=== PATIENT | male | born 1945 | race Caucasian/White ===

== ENCOUNTER 2020-10-26 11:13 | Outpatient (REF) | payer MEDICARE, SELFPAY ==
[2020-10-26 12:05] LABS: COVID-19 Test Negative (Negative)
== END 2020-10-26 11:14 | disposition home or self-care (01) ==
LOC: HO.LAB 11:13
PROVIDERS: PCP Family Medicine; Visit Provider Internal Medicine
DX: Z20.822 Contact with and (suspected) exposure to COVID-19 (principal)
CPT/HCPCS: 36415; 87635; C9803

== ENCOUNTER 2022-11-13 14:43 | Outpatient (AMB) | payer MEDICARE, SELFPAY ==
--- NOTE | 2022-11-13 14:55 | MHC.OFFVIS ---
Intake Intake Visit Reasons: Establish care/hx Prostate Cx Intake Note: New Patient is Present for Hx of Prostate Cancer/ Current Medication: Terazosin, solifenacin Antibiotic Allergy: None Blood Thinner: Eliquis Past treatment with Firmagon for Prostate Cancer Allergies bicalutamide Allergy (Mild, Verified 11/13/22 14:58) Unknown Iodinated Contrast Media Allergy (Mild, Verified 11/13/22 14:58) Unknown Medication List - Last Reconciled 11/13/22 by Chidi Murdock MD apixaban (Eliquis) 2.5 mg PO BID degarelix (Firmagon) mg subcut lisinopril mg PO mirabegron ER 25 mg PO DAILY 90 days prednisone mg PO solifenacin mg PO terazosin mg PO HPI HPI Comments History of Present Illness Details Candelario is a very pleasant male. He is a patient of . He is seen for the following urologic conditions - prostate cancer - radiation cystitis - urinary incontinence Multiple issues Discussed use of penile clamp to stop leakage Trial of bladder medication - suggest Myrbetriq given age for bladder urgency Prostate cancer - longstanding Diagnosis approximately 2004 Initial therapy with external beam radiation and radioactive seeds Develops question of metastatic disease Followed at [facility] with 2nd generation antiandrogen therapy Radiation cystitis Slowly developing urgency and frequency No prior therapy Urinary incontinence 2021 underwent prostate procedure Subsequent leakage with urgency [facility] Medical History (Updated 11/13/22 @ 15:24 by Chidi Murdock MD) Metastatic malignant neoplasm to prostate Microscopic hematuria Nocturia Weak urinary stream Review of Systems Const Denies chills and Denies fever(s) Card Reports no additional complaints and Denies syncope Resp Denies cough GI Denies abdominal pain and Denies heartburn Reports as per HPI and Denies change in libido Neuro Denies syncope Psych Denies change in libido Endo Denies change in libido Physical Exam Const General: cooperative, healthy appearing, comfortable and no acute distress Orientation/consciousness: patient oriented x3 HEENT Face and sinus: Yes normal facial exam Mouth: moist mucous membranes Neck Neck: Yes normal visual inspection, Yes full ROM and Yes trachea midline Chest Chest palpation & inspection: normal inspection of the chest Resp Effort & Inspection: normal respiratory effort, able to speak in complete sentences and no respiratory distress GI Inspection: Yes normal to inspection Back/Spine/Pelvis Cervical Spine: normal cervical lordosis Thoracic/Lumbar Spine: thoracic and lumbar spine normal to inspection Skin General skin exam: no rashes or lesions noted Neuro General: patient oriented x3, gait normal, tone normal and moves all extremities Extrem General: Yes normal to inspection and Yes capillary refill normal Assessment & Plan Assessment & Plan (1) Bladder outlet obstruction: Code(s): N32.0 - Bladder-neck obstruction (2) Metastatic malignant neoplasm to prostate: Code(s): C79.82 - Secondary malignant neoplasm of genital organs (3) Radiation cystitis: Code(s): N30.40 - Irradiation cystitis without hematuria Plan Stage prostate cancer with DEXA and bone scan Trial Myrbetriq Orders: Orders XR DEXA axial skeleton 3 Months C79.82 - Secondary malignant neoplasm of genital organs, M85.80 - Other specified disorders of bone density and structure, unspecified site NM bone scan whole body 11/13/22 C61 - Malignant neoplasm of prostate, C79.51 - Secondary malignant neoplasm of bone, C79.82 - Secondary malignant neoplasm of genital organs Medications: New mirabegron ER 25 mg PO DAILY 90 days 90 tabs 0RF N30.40 - Irradiation cystitis without hematuria Patient Instructions: Imaging studies, laboratory and physical exam results were discussed and reviewed in detail. No major barriers to patient understanding were identified. An opportunity to ask questions regarding the treatment plan was provided. All questions were answered. The patient expressed understanding and agreement with the above treatment plan. The patient is aware they should contact our office by phone for worsening of their current condition or the appearance of new urologic symptoms. Compliance is encouraged with any medications and followup testing that is ordered. It is a privilege to participate in the urologic care of your patient. If you have any questions or concerns regarding treatment for the above conditions, or other urologic issues, please do not hesitate to contact me. The office telephone contact is [phone]. This note is constructed using voice recognition software. While every effort has been made to ensure accuracy benefits representative errors may have been included. Yours sincerely, Dr Chidi Murdock MD, [facility] - Urology Providers of Expert, Compassionate Care for the Genitourinary System Coding Level of Care Code New Pt Level 4 (88503) Diagnoses Bladder outlet obstruction N32.0 Metastatic malignant neoplasm to prostate C79.82 Radiation cystitis N30.40
== END 2022-11-13 15:24 | disposition home or self-care (01) ==
PROVIDERS: PCP Family Medicine; Visit Provider Urology
DX: N32.0 Bladder-neck obstruction (principal); C79.82 Secondary malignant neoplasm of genital organs; N30.40 Irradiation cystitis without hematuria
CPT/HCPCS: 99204

== ENCOUNTER → 2022-11-13 14:43 | Outpatient (BNVA) | payer MEDICARE, SELFPAY | PROVIDERS: PCP Family Medicine; Visit Provider Urology ==

== ENCOUNTER 2022-11-19 14:03 | Outpatient (REF) | payer MEDICARE, SELFPAY ==
--- NOTE | ~2022-11-19 | MM_ITS ---
EXAMINATION: BONE DENSITOMETRY CLINICAL INDICATION: Other specified disorders of bone density and structure, unspecified. COMPARISON: This is the patient's baseline examination. TECHNIQUE: Using a [employer] DXA System (software version: 13.1) manufactured by [employer], dual-energy x-ray absorptiometry was performed of the lumbar spine and right hip. The images are of good technical quality. Summary results are attached. FINDINGS: RIGHT FEMUR, NECK: BMD 0.781 g/cm2, Z-score -1.0, T-score -2.2, osteopenia. RIGHT FEMUR, TOTAL: BMD 0.744 g/cm2, Z-score -1.7, T-score -2.5, osteoporosis. AP SPINE L1-L4 (excluding L2): The data of L1-L4 has been changed to exclude the L2 vertebral body, because degenerative sclerosis at this level may cause overestimation of lumbar spine density. BMD 1.373 g/cm2, Z-score 1.6, T-score 1.4, normal. IDENTIFIED RISK FACTORS: Recurrent falls, height loss, history of fracture (adult), glucocorticoids (chronic). HISTORY OF FRACTURE: Femur/hip. MEDICATIONS: Calcium supplements or multivitamin, vitamin D. MM/XR DEXA axial skeleton IMPRESSION: 1. DIAGNOSIS: Severe osteoporosis based on the lowest T-score value of -2.5 in the total femur and history of fracture applying World Health Organization criteria. 2. 10-YEAR FRACTURE RISK PREDICTION, FRAX: According to the guidelines, FRAX calculation should only be performed on patients in the osteopenia bone density category. Therefore, FRAX was not performed on this patient. 3. Treatment Recommendations: NOF guidelines recommend consideration for treatment in postmenopausal women and men age 50 and older presenting with the following: -A hip or vertebral (clinical or morphometric) fracture. -T-score less than or equal to -2.5 at the femoral neck or spine after appropriate evaluation to exclude secondary causes. -Low bone mass at the hip or spine and a 10-year fracture probability by FRAX of greater than or equal to 3% for hip fracture or greater than or equal to 20% for major osteoporotic fracture based on the [place] adapted WHO algorithm. 4. Other Recommendations: All treatment decisions require clinical judgment and consideration of individual patient factors, including patient preferences, comorbidities, previous drug use, risk factors not captured in the FRAX model (e.g. frailty, falls, vitamin D deficiency, increased bone turnover, interval significant decline in bone density) and possible under or overestimation of fracture risk by FRAX. Additional medical evaluation for secondary cause of low bone mineral density may be appropriate. FUTURE SCAN RECOMMENDATION: People with diagnosed cases of osteoporosis or at high risk for fracture should have regular bone mineral density tests. For patients eligible for Medicare, routine testing is allowed once every 2 years. The testing frequency can be increased to one year for patients who have rapidly progressing disease, those who are receiving or discontinuing medical therapy to restore bone mass, or have additional risk factors.
== END 2022-11-19 14:04 | disposition home or self-care (01) ==
LOC: HO.MAMMO 14:03
PROVIDERS: PCP Physician Assistant; Visit Provider Urology
DX: Z13.820 Encounter for screening for osteoporosis (principal); M81.0 Age-related osteoporosis without current pathological fracture; M85.80 Other specified disorders of bone density and structure, unspecified site; C79.82 Secondary malignant neoplasm of genital organs
CPT/HCPCS: 77080

== ENCOUNTER → 2022-11-19 14:30 | Outpatient (BNV) | payer MEDICARE, SELFPAY | PROVIDERS: PCP Physician Assistant; Visit Provider Radiology Diagnostic Radiology | DX: M81.0 Age-related osteoporosis without current pathological fracture (principal) | CPT/HCPCS: 77080 ==

== ENCOUNTER → 2022-11-26 10:40 | Outpatient (REF) | payer MEDICARE, SELFPAY ==
--- NOTE | ~2022-11-26 | NM_ITS ---
EXAMINATION: NM BONE SCAN OF THE WHOLE BODY CLINICAL INFORMATION: Secondary malignant neoplasm of bone. Prostate cancer. COMPARISON: Renal ultrasound done on 04/10/2022. TECHNIQUE: Multiple gamma scintillation camera images of the whole body were performed 2.5 hours following the intravenous administration of 34 mCi Tc-99m MDP. The radiotracer was injected through left hand superficial vein without complications. FINDINGS: In the head, no suspicious focal lesion. In the thoracic cage and upper extremities, mild asymmetric linear increased radiotracer activity involving the lateral end of the right clavicle may represent degenerative changes versus other process. Radiographic correlation is recommended. Mild heterogenicity is noted in the sternum. In the spine, no suspicious focal lesion. Increased radiotracer activities involving the cervical spine likely represent degenerative spondylosis. In the pelvis, asymmetric focal increased radiotracer activity along the posterior superior medial aspect of the left iliac bone is nonspecific. Radiographic correlation is recommended. Alternatively, follow-up PSMA- PET/CT study may also be considered for further clarification. Postsurgical changes of left hip prosthesis with intact hardware. In the lower extremities, mild increased diaphyseal activity involving the left mid femur is likely related to the prosthesis at the left hip. Postsurgical changes of bilateral knee prosthesis is present. No other definite bony abnormalities are noted. The urinary bladder and faint visualization of both kidneys are noted. NM/NM bone scan whole body IMPRESSION: 1. Focal increased asymmetric radiotracer activity along the superior posterior medial aspect of the left iliac bone is nonspecific. Radiographic correlation is recommended. Alternatively, follow-up PSMA PET/CT study may also be considered for further clarification. 2. Asymmetric nonspecific mild linear increased radiotracer activity at the lateral end of the right clavicle. Radiographic correlation and/or follow-up PSMA PET CT study as appropriate may be considered for further clarification. 3. Likely degenerative spondylosis involving the cervical spine and slight heterogeneous radiotracer activity involving the sternum is likely physiologic.
== END ==
LOC: HO.NUCMED 10:40
PROVIDERS: PCP Physician Assistant; Visit Provider Urology
DX: C61 Malignant neoplasm of prostate (principal); C79.51 Secondary malignant neoplasm of bone; C79.82 Secondary malignant neoplasm of genital organs
CPT/HCPCS: 78306; A9503

== ENCOUNTER 2022-12-20 12:34 | Outpatient (AMB) | payer MEDICARE, SELFPAY ==
--- NOTE | 2022-12-20 13:04 | MHC.OFFVIS ---
Intake Intake Visit Reasons: 1M Bone Scan/Prostate Cancer(set) Intake Note: Patient is Present for Follow Up Bone Scan Urology Medication: Vesicare, Myrbetriq Antibiotic Allergies: None Blood Thinners: Eliquis Pharmacy: [facility] Allergies bicalutamide Allergy (Mild, Verified 12/20/22 13:05) Unknown Iodinated Contrast Media Allergy (Mild, Verified 12/20/22 13:05) Unknown Medication List - Last Reconciled 12/20/22 by Chidi Murdock MD apixaban (Eliquis) 2.5 mg PO BID degarelix (Firmagon) mg subcut hydrochlorothiazide 25 mg PO DAILY lisinopril mg PO mirabegron ER 25 mg PO DAILY 90 days prednisone mg PO solifenacin mg PO terazosin mg PO HPI HPI Comments History of Present Illness Details Candelario is a very pleasant male. He is a patient of . He is seen for the following urologic conditions - prostate cancer - radiation cystitis - urinary incontinence Doing much better with Myrbetriq for bladder urgency DEXA scan osteoporotic - informs he broke his hip September 2022 Bone scan no evidence of current active disease Recommend Prolia every 6 months Prostate cancer - longstanding Diagnosis approximately 2004 Initial therapy with external beam radiation and radioactive seeds Develops question of metastatic disease Followed at [facility] with 2nd generation antiandrogen therapy - Fermagon Radiation cystitis Slowly developing urgency and frequency No prior therapy Urinary incontinence 2021 underwent prostate procedure Subsequent leakage with urgency Doing well with Myrbetriq - medications through [facility] Medical History Weak urinary stream Nocturia Metastatic malignant neoplasm to prostate Microscopic hematuria Review of Systems Const Denies chills and Denies fever(s) Card Reports no additional complaints and Denies syncope Resp Denies cough GI Denies abdominal pain and Denies heartburn Reports as per HPI and Denies change in libido Neuro Denies syncope Psych Denies change in libido Endo Denies change in libido Physical Exam Const General: cooperative, healthy appearing, comfortable and no acute distress Orientation/consciousness: patient oriented x3 HEENT Face and sinus: Yes normal facial exam Mouth: moist mucous membranes Neck Neck: Yes normal visual inspection, Yes full ROM and Yes trachea midline Chest Chest palpation & inspection: normal inspection of the chest Resp Effort & Inspection: normal respiratory effort, able to speak in complete sentences and no respiratory distress GI Inspection: Yes normal to inspection Back/Spine/Pelvis Cervical Spine: normal cervical lordosis Thoracic/Lumbar Spine: thoracic and lumbar spine normal to inspection Skin General skin exam: no rashes or lesions noted Neuro General: patient oriented x3, gait normal, tone normal and moves all extremities Extrem General: Yes normal to inspection and Yes capillary refill normal Assessment & Plan Assessment & Plan (1) Metastatic malignant neoplasm to prostate: Code(s): C79.82 - Secondary malignant neoplasm of genital organs (2) Bladder outlet obstruction: Code(s): N32.0 - Bladder-neck obstruction (3) Radiation cystitis: Code(s): N30.40 - Irradiation cystitis without hematuria (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 No major barriers to patient understanding were identified. An opportunity to ask questions regarding the treatment plan was provided. All questions were answered. The patient expressed understanding and agreement with the above treatment plan. The patient is aware they should contact our office by phone for worsening of their current condition or the appearance of new urologic symptoms. Compliance is encouraged with any medications and followup testing that is ordered. It is a privilege to participate in the urologic care of your patient. If you have any questions or concerns regarding treatment for the above conditions, or other urologic issues, please do not hesitate to contact me. The office telephone contact is [phone]. This note is constructed using voice recognition software. While every effort has been made to ensure accuracy him specialist errors may have been included. Yours sincerely, Dr Chidi Murdock MD, JO[facility] - Urology Providers of Expert, Compassionate Care for the Genitourinary System Coding Level of Care Code Est Pt Level 4 (08281) Diagnoses Metastatic malignant neoplasm to prostate C79.82 Bladder outlet obstruction N32.0 Radiation cystitis N30.40 Osteoporosis due to androgen therapy M81.8; T38.7X5A
== END 2022-12-20 13:33 | disposition home or self-care (01) ==
PROVIDERS: PCP Physician Assistant; Visit Provider Urology
DX: C79.82 Secondary malignant neoplasm of genital organs (principal); N32.0 Bladder-neck obstruction; N30.40 Irradiation cystitis without hematuria; M81.8 Other osteoporosis without current pathological fracture; T38.7X5A Adverse effect of androgens and anabolic congeners, initial encounter
CPT/HCPCS: 99214

== ENCOUNTER → 2022-12-20 12:34 | Outpatient (BNVA) | payer MEDICARE, SELFPAY | PROVIDERS: PCP Physician Assistant; Visit Provider Urology | DX: C79.82 Secondary malignant neoplasm of genital organs (principal); N32.0 Bladder-neck obstruction; N30.40 Irradiation cystitis without hematuria; M81.8 Other osteoporosis without current pathological fracture; T38.7X5D Adverse effect of androgens and anabolic congeners, subsequent encounter | CPT/HCPCS: 99212 ==

== ENCOUNTER 2022-12-25 11:00 | Outpatient (AMB) | payer MEDICARE, SELFPAY ==
--- NOTE | 2022-12-25 11:21 | AM.OFFVISNUR ---
Intake Intake Visit Reasons: Prolia Injection Allergies bicalutamide Allergy (Mild, Verified 12/20/22 13:05) Unknown Iodinated Contrast Media Allergy (Mild, Verified 12/20/22 13:05) Unknown Office Meds Prolia 60 mg/mL subcutaneous syringe Performing Provider: Chidi Murdock MD [place] [facility] [place] [facility] Administered by: Dmitry Amaya LPN on 12/25/22 11:21 Dose Route Admin Location Dispensed Lot Number Expiration Date [facility] Instrumentation Engineer 60 mg subcut left arm 1 mL [id number] 05/14/25 33255-807-87 AMGEN Coding Assessment & Plan Assessment & Plan Orders: Orders AMB Denosumab Injection Practice Supplied Today C79.82 - Secondary malignant neoplasm of genital organs, M81.8 - Other osteoporosis without current pathological fracture, T38.7X5A - Adverse effect of androgens and anabolic congeners, initial encounter
== END 2022-12-25 11:36 | disposition home or self-care (01) ==
PROVIDERS: PCP Physician Assistant; Visit Provider Urology
DX: C79.82 Secondary malignant neoplasm of genital organs (principal); M81.8 Other osteoporosis without current pathological fracture; T38.7X5A Adverse effect of androgens and anabolic congeners, initial encounter

== ENCOUNTER → 2022-12-25 11:00 | Outpatient (BNVA) | payer MEDICARE, SELFPAY | PROVIDERS: PCP Physician Assistant; Visit Provider Urology | DX: M81.8 Other osteoporosis without current pathological fracture (principal); T38.7X5A Adverse effect of androgens and anabolic congeners, initial encounter; C79.82 Secondary malignant neoplasm of genital organs | CPT/HCPCS: 96372; J0897 ==

== ENCOUNTER 2023-06-18 14:23 | Outpatient (AMB) | payer MEDICARE, SELFPAY ==
--- NOTE | 2023-06-18 14:33 | A.OFFVIS_ITS ---
Intake Intake Visit Reasons: 6M Prolia Intake Note: Patient presents today for a follow up on: Prolia Meds- Myrbetriq,Terazosin, Solifenacin Allergies to Antibiotic- No Known Allergies Blood Thinner- Eliquis Boiler Engineer Required: No Accompanied by: Self / Same As Patient Allergies bicalutamide Allergy (Mild, Verified 06/18/23 14:35) Unknown Iodinated Contrast Media Allergy (Mild, Verified 06/18/23 14:35) Unknown Medication List - Last Reconciled 06/18/23 by Chidi Murdock MD apixaban (Eliquis) 2.5 mg PO BID hydrochlorothiazide 25 mg PO DAILY lisinopril mg PO mirabegron ER 25 mg PO DAILY 90 days prednisone mg PO HPI HPI Comments History of Present Illness Details Candelario is a very pleasant male. He is a patient of . He is seen for the following urologic conditions - prostate cancer - radiation cystitis - urinary incontinence - osteoporosis induced by antiandrogen t herapy Six-month follow-up Has had weak stream Will try coming off Myrbetriq - he will call if helps with stream Continue Prolia DEXA scan osteoporotic 12/07 - informs he broke his hip September 2022 Bone scan - 12/07 - no evidence of current active disease Recommend Prolia every 6 months Discussed possible cystoscopy Prostate cancer - longstanding Diagnosis approximately 2004 Initial therapy with external beam radiation and radioactive seeds Develops question of metastatic disease Orchiectomy performed in [place] Followed at [facility] with 2nd generation antiandrogen therapy - Coy Follows a [facility] every 4 months Radiation cystitis Slowly developing urgency and frequency No prior therapy Urinary incontinence 2021 underwent prostate procedure - UroL ift Procedure had to be reversed Subsequent leakage with urgency particularly stress incontinence Doing well with Myrbetriq - medications through [facility] Medical History Weak urinary stream Nocturia Metastatic malignant neoplasm to prostate Microscopic hematuria Review of Systems Const Denies chills and Denies fever(s) Card Reports no additional complaints and Denies syncope Resp Denies cough GI Denies abdominal pain and Denies heartburn Reports as per HPI and Denies change in libido Neuro Denies syncope Psych Denies change in libido Endo Denies change in libido Physical Exam Const General: cooperative, healthy appearing, comfortable and no acute distress Orientation/consciousness: patient oriented x3 HEENT Face and sinus: Yes normal facial exam Mouth: moist mucous membranes Neck Neck: Yes normal visual inspection, Yes full ROM and Yes trachea midline Chest Chest palpation & inspection: normal inspection of the chest Resp Effort & Inspection: normal respiratory effort, able to speak in complete sentences and no respiratory distress GI Inspection: Yes normal to inspection Back/Spine/Pelvis Cervical Spine: normal cervical lordosis Thoracic/Lumbar Spine: thoracic and lumbar spine normal to inspection Skin General skin exam: no rashes or lesions noted Neuro General: patient oriented x3, gait normal, tone normal and moves all extremities Extrem General: Yes normal to inspection and Yes capillary refill normal Office Meds Prolia 60 mg/mL subcutaneous syringe Performing Provider: Chidi Murdock MD [place] [facility] [place] [facility] Administered by: Dipti Schmid RN on 06/18/23 14:54 Dose Route Admin Location Dispensed Lot Number Expiration Date [facility] Roll Tube Setter 60 mg subcut left arm 1 mL [id number] 05/14/25 92630-490-67 AMGEN Assessment & Plan Assessment & Plan (1) Osteoporosis due to androgen therapy: Code(s): M81.8 - Other osteoporosis without current pathological fracture; T38.7X5A - Adverse effect of androgens and anabolic congeners, initial encounter (2) Radiation cystitis: Code(s): N30.40 - Irradiation cystitis without hematuria (3) Bladder outlet obstruction: Code(s): N32.0 - Bladder-neck obstruction (4) Metastatic malignant neoplasm to prostate: Code(s): C79.82 - Secondary malignant neoplasm of genital organs Plan Six-month follow-up PVR Prolia Orders: Orders AMB Denosumab Injection Practice Supplied Today M81.8 - Other osteoporosis without current pathological fracture, T38.7X5A - Adverse effect of androgens and anabolic congeners, initial encounter Patient Instructions: Imaging studies, laboratory and physical exam results were discussed and reviewed in detail. No major barriers to patient understanding were identified. An opportunity to ask questions regarding the treatment plan was provided. All questions were answered. The patient expressed understanding and agreement with the above treatment plan. The patient is aware they should contact our office by phone for worsening of their current condition or the appearance of new urologic symptoms. Compliance is encouraged with any medications and followup testing that is ordered. It is a privilege to participate in the urologic care of your patient. If you have any questions or concerns regarding treatment for the above conditions, or other urologic issues, please do not hesitate to contact me. The office telephone contact is [phone]. This note is constructed using voice recognition software. While every effort has been made to ensure accuracy junior qa analyst errors may have been included. Yours sincerely, Dr Chidi Murdock MD, [facility] - Urology Providers of Expert, Compassionate Care for the Genitourinary System Coding Level of Care Code Est Pt Level 3 (76379) Diagnoses Osteoporosis due to androgen therapy M81.8; T38.7X5A Radiation cystitis N30.40 Bladder outlet obstruction N32.0 Metastatic malignant neoplasm to prostate C79.82
== END 2023-06-18 15:05 | disposition home or self-care (01) ==
PROVIDERS: PCP Physician Assistant; Visit Provider Urology
DX: M81.8 Other osteoporosis without current pathological fracture (principal); T38.7X5A Adverse effect of androgens and anabolic congeners, initial encounter; N30.40 Irradiation cystitis without hematuria; N32.0 Bladder-neck obstruction; C79.82 Secondary malignant neoplasm of genital organs
CPT/HCPCS: 99213

== ENCOUNTER → 2023-06-18 14:23 | Outpatient (BNVA) | payer MEDICARE, SELFPAY | PROVIDERS: PCP Physician Assistant; Visit Provider Urology | DX: M81.8 Other osteoporosis without current pathological fracture (principal); T38.7X5D Adverse effect of androgens and anabolic congeners, subsequent encounter; N30.40 Irradiation cystitis without hematuria; N32.0 Bladder-neck obstruction; C79.82 Secondary malignant neoplasm of genital organs | CPT/HCPCS: 96372; 99212; J0897 ==

== ENCOUNTER 2023-12-18 09:57 | Outpatient (AMB) | payer MEDICARE, SELFPAY ==
--- NOTE | 2023-12-18 10:08 | A.OFFVIS_ITS ---
Intake Visit Reasons: 6M Follow UP-PVR/Prolia Intake Note: Patient presents today for a 6M follow up/PVR/PROLIA Meds- MIRABEGRON Allergies to Antibiotic- No Known Allergies Blood Thinner- Eliquis TODAY'S PVR: 0ML'S Personal Computer Network Engineer Required: No Accompanied by: Self / Same As Patient Allergies bicalutamide Allergy (Mild, Verified 12/18/23 10:09) Unknown Iodinated Contrast Media Allergy (Mild, Verified 12/18/23 10:09) Unknown HPI Comments Details: Candelario is a very pleasant male. He is a patient of . 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 Diagnosis approximately 2004 Initial therapy with external beam radiation and radioactive seeds Develops question of metastatic disease Orchiectomy performed in [place] Followed at [facility] with 2nd generation antiandrogen therapy - Coy Follows a [facility] every 4 months Radiation cystitis Slowly developing urgency and frequency No prior therapy Urinary incontinence 2021 underwent prostate procedure - UroLift Procedure had to be reversed Subsequent leakage with urgency particularly stress incontinence Doing well with Myrbetriq - medications through [facility] Medical History Weak urinary stream Nocturia Metastatic malignant neoplasm to prostate Microscopic hematuria Review of Systems Const Denies chills and Denies fever(s) Card Reports no additional complaints and Denies syncope Resp Denies cough GI Denies abdominal pain and Denies heartburn Reports as per HPI and Denies change in libido Neuro Denies syncope Psych Denies change in libido Endo Denies change in libido Physical Exam Const General: cooperative, healthy appearing, comfortable and no acute distress Orientation/consciousness: patient oriented x3 HEENT Face and sinus: Yes normal facial exam Mouth: moist mucous membranes Neck Neck: Yes normal visual inspection, Yes full ROM and Yes trachea midline Chest Chest palpation & inspection: normal inspection of the chest Resp Effort & Inspection: normal respiratory effort, able to speak in complete sentences and no respiratory distress GI Inspection: Yes normal to inspection Back/Spine/Pelvis Cervical Spine: normal cervical lordosis Thoracic/Lumbar Spine: thoracic and lumbar spine normal to inspection Skin General skin exam: no rashes or lesions noted Neuro General: patient oriented x3, gait normal, tone normal and moves all extremities Extrem General: Yes normal to inspection and Yes capillary refill normal Office Procedures Post Void Residual Post Residual Void Post Void Residual (PVR): 0 33815-Fyve Void Residual by ultrasound Office Meds Prolia 60 mg/mL subcutaneous syringe Performing Provider: Chidi Murdock MD Performing Location[facility] [place] [facility] Administered by: Dmitry Amaya LPN on 12/18/23 10:32 Dose Route Admin Location Dispensed Lot Number Expiration Date [facility] Integrated Logistics Programs Director 60 mg subcut right arm 1 mL [id number] 11/14/25 26206-050-16 AMGEN Results AMB Urinalysis, Automated UA Leukoctes 0 Tabatha/uL Last Edit by CHARLI De Santiago on 12/18/23 10:21 UA Nitrite Negative Last Edit by CHARLI De Santiago on 12/18/23 10:21 UA Urobilinogen 0.2 mg/dL Last Edit by CHARLI De Santiago on 12/18/23 10:2 1 UA Protein 0 mg/dL Last Edit by CHARLI De Santiago on 12/18/23 10:21 UA pH 6.0 Last Edit by CHARLI De Santiago on 12/18/23 10:21 UA Blood 0 Gentry/uL Last Edit by CHARLI De Santiago on 12/18/23 10:21 UA Specific [place] 1.010 Last Edit by CHARLI De Santiago on 12/18/23 10: 21 UA Ketone Negative Last Edit by CHARLI De Santiago on 12/18/23 10:21 UA Bilirubin 0 mg/dL Last Edit by CHARLI De Santiago on 12/18/23 10:21 UA Glucose 0 mg/dL Last Edit by CHARLI De Santiago on 12/18/23 10:21 Results Reviewed Results Reviewed: Laboratory Last Values Urine pH (Auto) 6.0 12/18/23 10:21 Specific [place] (Auto) 1.010 12/18/23 10:21 Urine Protein (Auto) 0 mg/dL 12/18/23 10:21 Glucose (UA)(Auto) 0 mg/dL 12/18/23 10:21 Urine Ketones (Auto) Negative 12/18/23 10:21 Urine Blood (Auto) 0 Gentry/uL 12/18/23 10:21 Urine Nitrite (Auto) Negative 12/18/23 10:21 Urine Bilirubin (Auto) 0 mg/dL 12/18/23 10:21 Urine Urobilinogen (Auto) 0.2 mg/dL 12/18/23 10:21 Leukocyte Esterase (Auto) 0 Tabatha/uL 12/18/23 10:21 Assessment & Plan Assessment & Plan (1) Osteoporosis due to androgen therapy: Code(s): M81.8 - Other osteoporosis without current pathological fracture; T38.7X5A - Adverse effect of androgens and anabolic congeners, initial encounter Category: Medical (2) Metastatic malignant neoplasm to prostate: Code(s): C79.82 - Secondary malignant neoplasm of genital organs Category: Medical Plan Six-month follow-up Prolia Orders: Orders AMB Urinalysis Automated Today Z13.9 - Encounter for screening, unspecified Patient Instructions: Imaging studies, laboratory and physical exam results were discussed and reviewed in detail. No major barriers to patient understanding were identified. An opportunity to ask questions regarding the treatment plan was provided. All questions were answered. The patient expressed understanding and agreement with the above treatment plan. The patient is aware they should contact our office by phone for worsening of their current condition or the appearance of new urologic symptoms. Compliance is encouraged with any medications and followup testing that is ordered. It is a privilege to participate in the urologic care of your patient. If you have any questions or concerns regarding treatment for the above conditions, or other urologic issues, please do not hesitate to contact me. The office telephone contact is [phone]. This note is constructed using voice recognition software. While every effort has been made to ensure accuracy auto air conditioning mechanic errors may have been included. Yours sincerely, Dr Chidi Murdock MD, [facility] - Urology Providers of Expert, Compassionate Care for the Genitourinary System Coding Level of Care Code Est Pt Level 3 (40212) Diagnoses Osteoporosis due to androgen therapy M81.8; T38.7X5A Metastatic malignant neoplasm to prostate C79.82 CPT Codes Post Residual Void - PVR CPT Code: 24136-Vsbc Void Residual by ultrasound ([id number])
== END 2023-12-18 10:40 | disposition home or self-care (01) ==
PROVIDERS: PCP Physician Assistant; Visit Provider Urology
DX: M81.8 Other osteoporosis without current pathological fracture (principal); T38.7X5A Adverse effect of androgens and anabolic congeners, initial encounter; C79.82 Secondary malignant neoplasm of genital organs; Z13.9 Encounter for screening, unspecified
CPT/HCPCS: 99213

== ENCOUNTER → 2023-12-18 09:57 | Outpatient (BNVA) | payer MEDICARE, SELFPAY | PROVIDERS: PCP Physician Assistant; Visit Provider Urology | DX: M81.8 Other osteoporosis without current pathological fracture (principal); T38.7X5A Adverse effect of androgens and anabolic congeners, initial encounter; C79.82 Secondary malignant neoplasm of genital organs | CPT/HCPCS: 51798; 81003; 96372; 99212; J0897 ==

== ENCOUNTER 2024-04-15 14:39 | Outpatient (AMB) | payer MEDICARE, SELFPAY ==
--- NOTE | 2024-04-15 15:03 | AM.OFFVISNUR ---
Intake Visit Reasons: UTI? Allergies bicalutamide Allergy (Mild, Verified 12/18/23 10:09) Unknown Iodinated Contrast Media Allergy (Mild, Verified 12/18/23 10:09) Unknown Office Procedures Post Void Residual Post Residual Void Details: Patient presents to office for urine testing and PVR. Patient urine unremarkable, bladder scanned for 63mls. Patient reporting urgency to use bathroom but very weak stream. Reviewed with Dr. Grayson as Dr. Murdock in OR currently- have patient increase fluids, avoid foods/drinks that irritate bladder, continue myrbetriq and explain he is emptying fully but could be diet. Explained above to patient- patient stating that he starts day with two cups of coffee and has other things throughout day that irritate bladder such as pizza and soda. Patient agreeable to try to avoid irritating foods, given handout of common foods that irritate bladder. Let patient know to try to cut down or stop foods/drinks, if does not work around a week or so to call office. Patient agreeable with plan at this time. Post Void Residual (PVR): 63 [id number]-Ykad Void Residual by ultrasound Results AMB Urinalysis, Automated UA Leukoctes 15 Tabatha/uL Last Edit by Dmitry Amaya LPN on 04/15/24 15:05 UA Nitrite Negative Last Edit by Dmitry Amaya LPN on 04/15/24 15:05 UA Urobilinogen 0.2 mg/dL Last Edit by Dmitry Amaya LPN on 04/15/24 15:05 UA Protein 15 mg/dL Last Edit by Dmitry Amaya LPN on 04/15/24 15:05 UA pH 6.0 Last Edit by Dmitry Amaya LPN on 04/15/24 15:05 UA Blood 10 Gentry/uL Last Edit by Dmitry Amaya LPN on 04/15/24 15:05 UA Specific [place] 1.020 Last Edit by Dmitry Amaya LPN on 04/15/24 15:05 UA Ketone Negative Last Edit by Dmitry Amaya LPN on 04/15/24 15:05 UA Bilirubin 0 mg/dL Last Edit by Dmitry Amaya LPN on 04/15/24 15:05 UA Glucose 0 mg/dL Last Edit by Dmitry Amaya LPN on 04/15/24 15:05 Assessment & Plan Assessment & Plan Orders: Orders AMB Urinalysis Automated Today C79.82 - Secondary malignant neoplasm of genital organs, N30.40 - Irradiation cystitis without hematuria, 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
== END 2024-04-15 15:22 | disposition home or self-care (01) ==
PROVIDERS: PCP Physician Assistant; Visit Provider Urology
DX: C79.82 Secondary malignant neoplasm of genital organs (principal); N32.0 Bladder-neck obstruction; N30.40 Irradiation cystitis without hematuria

== ENCOUNTER → 2024-04-15 14:39 | Outpatient (BNVA) | payer MEDICARE, SELFPAY | PROVIDERS: PCP Physician Assistant; Visit Provider Urology | DX: C79.82 Secondary malignant neoplasm of genital organs (principal); N30.40 Irradiation cystitis without hematuria; N32.0 Bladder-neck obstruction | CPT/HCPCS: 51798; 81003 ==

== ENCOUNTER 2024-06-17 10:01 | Outpatient (AMB) | payer MEDICARE, SELFPAY ==
--- NOTE | 2024-06-17 10:14 | MHC.OFFVIS ---
Intake Visit Reasons: Prolia/6m follow up Intake Note: Patient is present for PROLIA/6M F/U Urology Medication:MIRABEGRON Antibiotic Allergy:NONE Blood Thinner:APIXABAN District Leader Required: No Allergies bicalutamide Allergy (Mild, Verified 06/17/24 10:15) Unknown Iodinated Contrast Media Allergy (Mild, Verified 06/17/24 10:15) Unknown HPI Comments Details: Candelario is a very pleasant male. He is a patient of . 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 Diagnosis approximately 2004 Initial therapy with external beam radiation and radioactive seeds Develops question of metastatic disease Orchiectomy performed in [place] Followed at [facility] with 2nd generation antiandrogen therapy - Coy Follows a [facility] every 4 months Radiation cystitis Slowly developing urgency and frequency [facility] Urinary incontinence 2021 underwent prostate procedure - UroLift Procedure had to be reversed Subsequent leakage with urgency particularly stress incontinence Doing well with Myrbetriq - medications through [facility] Medical History Weak urinary stream Nocturia Metastatic malignant neoplasm to prostate Microscopic hematuria Review of Systems Const Denies chills and Denies fever(s) Card Reports no additional complaints and Denies syncope Resp Denies cough GI Denies abdominal pain and Denies heartburn Reports as per HPI and Denies change in libido Neuro Denies syncope Psych Denies change in libido Endo Denies change in libido Physical Exam Const General: cooperative, healthy appearing, comfortable and no acute distress Orientation/consciousness: patient oriented x3 HEENT Face and sinus: Yes normal facial exam Mouth: moist mucous membranes Neck Neck: Yes normal visual inspection, Yes full ROM and Yes trachea midline Chest Chest palpation & inspection: normal inspection of the chest Resp Effort & Inspection: normal respiratory effort, able to speak in complete sentences and no respiratory distress GI Inspection: Yes normal to inspection Back/Spine/Pelvis Cervical Spine: normal cervical lordosis Thoracic/Lumbar Spine: thoracic and lumbar spine normal to inspection Skin General skin exam: no rashes or lesions noted Neuro General: patient oriented x3, gait normal, tone normal and moves all extremities Extrem General: Yes normal to inspection and Yes capillary refill normal Office Meds Prolia 60 mg/mL subcutaneous syringe Performing Provider: Chidi Murdock MD [place] [facility] [place] [facility] Administered by: Dmitry Amaya LPN on 06/17/24 11:26 Dose Route Admin Location Dispensed Lot Number Expiration Date NDC Business Communications Instructor 60 mg subcut right arm 1 mL [id number] 09/13/26 04307-580-03 AMGEN Assessment & Plan Assessment & Plan (1) Osteoporosis due to androgen therapy: Code(s): M81.8 - Other osteoporosis without current pathological fracture; T38.7X5A - Adverse effect of androgens and anabolic congeners, initial encounter Category: Medical (2) Radiation cystitis: Code(s): N30.40 - Irradiation cystitis without hematuria Category: Medical (3) Metastatic malignant neoplasm to prostate: Code(s): C79.82 - Secondary malignant neoplasm of genital organs Category: Medical Plan Six-month follow-up imaging Orders: Orders PET CT fusion skull to thigh 6 Months M81.8 - Other osteoporosis without current pathological fracture, T38.7X5A - Adverse effect of androgens and anabolic congeners, initial encounter XR DEXA axial skeleton 6 Months M81.8 - Other osteoporosis without current pathological fracture, T38.7X5A - Adverse effect of androgens and anabolic congeners, initial encounter Patient Instructions: This note is constructed using voice recognition software. While every effort has been made to ensure accuracy orthotic and prosthetic technician errors may have been included. Imaging studies, laboratory and physical exam results were discussed and reviewed in detail. No major barriers to patient understanding were identified. An opportunity to ask questions regarding the treatment plan was provided. All questions were answered. The patient expressed understanding and agreement with the above treatment plan. The patient is aware they should contact our office by phone for worsening of their current condition or the appearance of new urologic symptoms. Compliance is encouraged with any medications and followup testing that is ordered. It is a privilege to participate in the urologic care of your patient. If you have any questions or concerns regarding treatment for the above conditions, or other urologic issues, please do not hesitate to contact me. The office telephone contact is [phone]. Sincerely, Dr Chidi Murdock MD, JOON [facility] - Urology Compassionate Specialist Care for the Genitourinary System Coding Diagnoses Osteoporosis due to androgen therapy M81.8; T38.7X5A Radiation cystitis N30.40 Metastatic malignant neoplasm to prostate C79.82
--- OUTSIDE RECORDS SUMMARY | 2024-06-17 10:47 | XMS_ITS | Encounter Summary ---
Author Name [facility] [facility] [place] Address [address] [place] [address] Care Team Providers Care Sterile Instrument Technician Name Role Phone DILAN LOPEZ Primary Care [...] O MEDEX BRONZ E Oct 15, 2008 [id number] CARIE MAE PATIENT ANTHEM BCBS OF [place] (BLUECARD) MEDICARE SUPPLEMEN HUMZA MEDEX BRONZ E Feb 14, 2022 [id number] [phone] CARIE MAE PATIENT [place]BS [place] MED[place] SUPPLEMEN HUMZA MEDEX BRONZ E Feb 14, 2022 [id number] CARIE MAE PATIENT [place] SUPPLEMEN HUMZA MEDEX BRONZ E Oct 15, 2008 [id number] CARIE MAE PATIENT BCBS OF [place] MEDICARE SUPPLEMEN HUMZA MEDEX HEARI NG AND Mar 17, 2019 [id number] CAREI MAE PATIENT MEDICARE (WNR) MEDICARE (M) PART A Oct 15, 2008 PART A [id number] CARIE MAE PATIENT MEDICARE (WNR) MEDICARE (M) PART B Oct 15, 2008 PART B [id number] [phone] CARIE MAE PATIENT MEDICARE (WNR) MEDICARE (M) PART A Oct 15, 2008 PART A [id number] CARIE MAE PATIENT MEDICARE (WNR) MEDICARE (M) PART B Oct 15, 2008 PART B [id number] CARIE MAE PATIENT MEDICARE (WNR) MEDICARE (M) PART A Oct 15, 2008 PART A [id number] CARIE MAE PATIENT MEDICARE (WNR) MEDICARE (M) PART B Oct 15, 2008 PART B [id number] CARIE MAE PATIENT MEDICARE (WNR) MEDICARE (M) PART A Oct 15, 2008 PART A [id number] CARIE MAE PATIENT MEDICARE (WNR) MEDICARE (M) PART B Oct 15, 2008 PART B [id number] [phone] CARIE MAE PATIENT Selected Encounter This section includes the information on record at [place] for the Encounter. 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 Date/Time Primary/Secondary Diagnosis Diagnosis Name Provider Source Apr 27, 2024 08:31 AM PRIMARY Carcinoma in situ of prostate LISETTE ORTA [place] [facility] [place] [facility] Plan of Treatment: Future Appointments (+ 6 months) and Future Tests (+/- 45 days) The Plan of Treatment section includes future care activities for the patient from all [place] [facility] This section includes future appointments and future orders which are active, pending or scheduled. Future Appointments This section includes appointments that were scheduled to occur 6 months from the date of the Encounter, up to a maximum of 20 appointments. The data comes from all [facility] facilities. Appointment Date/Time Appointment Type Appointme nt Facility Name May 14, 2024 01:30 PM AMBULATORY - MEDICINE [facility] N[facility] May 18, 2024 08:00 AM AMBULATORY - MEDICINE [facility] May 26, 2024 02:30 PM [facility] Jun 03, 2024 10:00 AM AMBULATORY - MEDICINE [facility] Jun 17, 2024 10:30 AM [facility] Sep 28, 2024 08:30 AM AMBULATORY MEDICINE [facility] Active, Pending, and Scheduled Orders This section includes a listing of several types of active, pending, and scheduled orders, including clinic medications orders, diagnostic test orders, procedure orders and consult orders; where the start date of the order is 45 days before the date of the Encounter or 45 days after the date of theEncounter. The data comes from all [facility]. Test Date/Time Test Type Test Details Facility Name Apr 21, 2024 01:04 PM Consult Order [facility]-UROLOGY Cons Reading Assistant's Choice [facility] Lab Results: +/- 30 days of the encounter This section includes the Chemistry and Hematology Lab Results on record with [place] for the patient. Radiology Reports and Pathology Reports are provided separately, in subsequent sections. Lab Results This section contains the Chemistry/Hematology Results that were resulted 30 days before or 30 daysafter the date of the Encounter. Date/Time Source Result Type Result - Unit Interpretation Reference Range Comment May 04, 2024 07:49 AM [facility] LIPID PANEL FASTING Specimen Type: SERUM No comment entered. Ordering Provider: NAVARRO LOPEZ Report Released Date/Time: Nov 11, 2023 11:31 AM Reporting [facility] [address] [address] Performing Lab: [facility] [address] [facility] [address] CHOLESTEROL 192 mg/dL TRIGLYCERIDE 98 mg/dL 0-150 LDL calculated 130 mg/dL H 0-129 CHOL/HDL 4.6 HDL CHOLESTEROL 42 mg/dL 40-60 May 04, 2024 07:49 AM [facility] PSA Specimen Type: SERUM No comment entered. Ordering Provider: NAVARRO LOPEZ Report Released Date/Time: Nov 11, 2023 11:31 AM Reporting Lab: [facility] [address] [address] Performing Lab: [facility] [address] [address] PSA 4.75 ng/mL H 0.00-4.00 May 04, 2024 07:49 AM [facility] LIVER FUNCTION Specimen Type: SERUM No comment entered. Ordering Provider: NAVARRO LOPEZ Report Released Date/Time: Nov 11, 2023 11:31 AM Reporting Lab: [facility] [address] [address] Performing Lab: [address] [address] PROTEIN,TOTAL 6.9 g/dL 6.0-8.3 ALBUMIN 3.8 g/dL 3.5-5.0 ALKALINE PHOSPHATASE 44 U/L 40-150 AST 16 U/L 5-34 ALT 16 U/L BILIRUBIN, TOTAL 0.3 mg/dL 0.2-1.2 May 04, 2024 07:49 AM [facility] BASIC METABOLIC PANEL (fasting) Specimen Type: SERUM No comment entered. Ordering Provider: NAVARRO LOPEZ Report Released Date/Time: Nov 11, 2023 11:31 AM Reporting Lab: [address] [address] Performing Lab: [address] [place] [address] UREA NITROGEN 18 mg/dL 7-25 GLUCOSE 100 mg/dL 65-100 SODIUM 137 mmol/L 135-145 POTASSIUM 4.8 mmol/L 3.5-5.0 CHLORIDE 104 mmol/L 100-110 CO2 25 meq/L 20-30 CREATININE, Serum 0.97 mg/dL 0.50-1.40 eGFR(CKD-EPI 2020) 78 mL/min >60 Social History: Smoking Status (Most current) and Tobacco Use (All prior to encounter date) This section includes the most current, and the historical, smoking and tobacco- related health factors from the [place] facility where the Encounter took place. Current Smoking Status This section includes the most current smoking, or tobacco-related health factor, from the [place] facility where the Encounter took place. Date/Time Current Smoking Status Comment Facil ity Nov 11, 2023 11:00 AM VA-TOBACCO NEVER USED [place] [facility] [place] [facility] Tobacco Use History This section includes a history of the smoking, or tobacco-related health factors, that were collected on or before the date of the Encounter. The data comes from the [place] facility where the Encounter took place. Date/Time Smoking Status/Tobacco Use Comment F acility Sep 27, 2022 10:30 AM VA-TOBACCO FORMER USER [facility] [place] [facility] Sep 27, 2022 10:30 AM VA-TOBACCO QUIT 15 YRS OR MORE [facility] [place] [facility] Aug 30, 2021 09:20 AM VA-TOBACCO FORMER USER [facility] [place] [facility] Aug 30, 2021 09:20 AM VA-TOBACCO QUIT 15 YRS OR MORE [facility] [place] [facility] August 07, 2020 09:00 AM VA-TOBACCO FORMER USER [facility] [place] [facility] August 07, 2020 09:00 AM VA-TOBACCO QUIT 15 YRS OR MORE [facility] [place] [facility] Jul 12, 2019 10:05 AM VA-TOBACCO FORMER USER [facility] [place] [facility] Jul 12, 2019 10:05 AM VA-TOBACCO QUIT 15 YRS OR MORE [facility] [place] [facility] Jul 03, 2018 10:51 AM VA-TOBACCO FORMER USER [facility] Jul 03, 2018 10:51 AM VA-TOBACCO QUIT 5 TO < 15 YRS [facility] Sep 01, 2017 10:25 AM QUIT TOBACCO USE > 7 YEARS AGO [facility] Aug 29, 2016 09:22 AM QUIT TOBACCO USE > 7 YEARS AGO [facility] August 15, 2015 02:32 PM QUIT TOBACCO USE > 7 YEARS AGO [facility] Advance Directives: All historical and current Section Date Range: From patient's date of to the date document was created. This section includes ALL of a patient's completed or amended [place] Advance and Rescinded Directives. The entries below indicate that a directive exists for the patient, but an actual copy is not included with this document. The data comes from all [place] facilities. Date Advance Directives Provider Source Dec 17, 2018 ADVANCE DIRECTIVE LIZ HERNANDEZ [facility] May 30, 2017 ADVANCE DIRECTIVE VICTOR MANUEL PAINTING [facility] Dec 25, 2005 ADVANCE DIRECTIVE IRENA OSEI [facility] Radiology Reports: +/- 30 days of [...] the Encounter. The data comes from all [place] treatment facilities. Date/Time Radiology Report Provider Source May 26, 2024 03:05 PM FLUOROSCOPIC ARIC NCE OF NEEDLE/SPINE: FAUSTINO MAEIN Ezra [id number] -1945 M Ex Date: MAY 26, 2024@15:05 Req Phys: LISA LOPEZ Pat Loc: [facility] MIMA GUDINO MD (Req' Img Loc: [facility]/BUILDING 1 Service: Unknown [facility] [place] [address] (Case [id number] COMPLETE) FLUOROSCOPIC GUIDANCE OF NEEDLE/S(RAD Detailed) CPT:54696 Reason for Study: transforaminal epidural steroid injection Clinical History: Report Status: Verified Date Reported: MAY 26, 2024 Date Verified: MAY 26, 2024 Manager Sterile E-Sig:/JULIANN/JOSE BEJARANO JR Report: Study: Pain injection of [...] Primary Interpreting Staff: JOSE BEJARANO JR, Radiologist (Manager Sterile) /JOSE MOORE JR [facility] Encounter Notes: All associated encounter notes This section contains the clinical notes associated to the Encounter. Date/Time Encounter Note(s) Provider Source Apr 30, 2024 12:44 PM ADDENDUM: LOCAL TITLE: Addendum STANDARD TITLE: ADDENDUM DATE OF NOTE: APR 30, 2024@12:44:35 ENTRY DATE: APR 30, 2024@12:44:36 AUTHOR: GISELL ORTA COSIGNER: URGENCY: STATUS: COMPLETED Further office notes and rationale received from [facility] [place]. [facility] started on Abiraterone/Prednisone 12/2019 until it was discontinued 04/22/2022 due to sides effects of muscle weakness, fatigue and joint pain. He has been on surveillance until 04/19/2024. 04/12/2024 PSA was noted to be 2.27 He has metastatic disease (provided CT scan) This request is approved -[facility] trialed and failed formulary preferred alternatives /juliann/ GISELL ORTA, PHARMD. [facility] Clinical Pharmacist Signed: 04/30/2024 12:48 Receipt Acknowledged By: 04/30/2024 15:21 /juliann/ DILAN STEVENSON Material Control Analyst ====== --- Original Document --- 04/27/24 CONSULT REPORT/PRIOR AUTH FACILITY PADR: The medical record has been reviewed with regard to this restricted drug request. This prior authorization drug request originated with a [facility] provider. Medication requested: DAROLUTAMIDE 300MG TAB Medication indication: Prostate Cancer Medical history relevant to this request: 78 y/o male followed by [facility]. Per most recent note provided (12/11/2023) has prostate cancer and is feeling well, no pain, and good appetite. PSA: 0.49 (12/08/2023) Allergies: Bicalutamide (vomiting) Per office note, no history of other antiandrogens trialed. Unknown if prostate cancer is metastatic or castration sensitive/resistant. Per [place] records, potential of abiraterone trialed in [id number]? Compelling evidence is currently lacking for the use of this antiandrogen. Preferred antiandrogen is abiraterone/prednisone combination. The request does not meet criteria - Compelling evidence for the requested indication is lacking Time Spent: 15 minutes /juliann/ GISELL ORTA PHARMD. [facility] Clinical Pharmacist Signed: 04/27/2024 08:31 Receipt Acknowledged By: 04/29/2024 14:28 /juliann/ DILAN PIERRE Material Control Analyst GISELL ORTA [place] [facility] [place] [facility] Apr 27, 2024 08:15 AM PHARMACY CONSULT: LOCAL TITLE: CONSULT REPORT/PRIOR AUTH FACILITY PADR STANDARD TITLE: PHARMACY CONSULT DATE OF NOTE: APR 27, 2024@08:15 ENTRY DATE: APR 27, 2024@08:15:53 AUTHOR: GISELL ORTA EXP COSIGNER: URGENCY: STATUS: COMPLETED CONSULT REPORT/PRIOR AUTH FACILITY PADR Has ADDENDA The medical record has been reviewed with regard to this restricted drug request. This prior authorization drug request originated with a [facility] provider. Medication requested: DAROLUTAMIDE 300MG TAB Medication indication: Prostate Cancer Medical history relevant to this request: 78 y/o male followed by [facility]. Per most recent note provided (12/11/2023) has prostate cancer and is feeling well, no pain, and good appetite. PSA: 0.49 (12/08/2023) Allergies: Bicalutamide (vomiting) Per office note, no history of other antiandrogens trialed. Unknown if prostate cancer is metastatic or castration sensitive/resistant. Per [place] records, potential of abiraterone trialed in 4534-5476? Compelling evidence is currently lacking for the use of this antiandrogen. Preferred antiandrogen is abiraterone/prednisone combination. The request does not meet criteria - Compelling evidence for the requested indication is lacking Time Spent: 15 minutes /juliann/ GISELL ORTA PHARMD. [facility] Clinical Pharmacist Signed: 04/27/2024 08:31 Receipt Acknowledged By: 04/29/2024 14:28 /juliann/ DILAN PIERRE Material Control Analyst 04/30/2024 ADDENDUM STATUS: COMPLETED Further office notes and rationale received from [facility]. started on Abiraterone/Prednisone 12/2019 until it was discontinued 04/22/2022 due to sides effects of muscle weakness, fatigue and joint pain. He has been on surveillance until 04/19/2024. 04/12/2024 PSA was noted to be 2.27 He has metastatic disease (provided CT scan) This request is approved -[facility] trialed and failed formulary preferred alternatives /juliann/ GISELL ORTA PHARMD. [facility] Clinical Pharmacist Signed: 04/30/2024 12:48 Receipt Acknowledged By: * AWAITING SIGNATURE * DILAN PIERRE CHRISTY A [place] [facility]
--- OUTSIDE RECORDS SUMMARY | 2024-06-17 10:48 | XMS_ITS | Encounter Summary ---
Author Name [facility] [place] [facility] [place] Address [address] [place] [address] Care Team Providers Care Pattern Setter Name Role Phone DILAN LOPEZ Primary Care [...] O MEDEX BRONZ E Oct 15, 2008 [id number] [phone] CARIE MAE PATIENT ANTHEM BCBS OF [place] (BLUECARD) MEDICARE SUPPLEMEN HUMZA MEDEX BRONZ E Feb 14, 2022 [id number] [phone] CARIE MAE PATIENT [place] MED[place] SUPPLEMEN HUMZA MEDEX BRONZ E Feb 14, 2022 [id number] CARIE MAE [place] SUPPLEMEN HUMZA MEDEX BRONZ E Oct 15, 2008 [id number] CARIE MAE PATIENT [place] MEDICARE SUPPLEMEN HUMZA MEDEX HEARI NG AND Mar 17, 2019 [id number] CARIE MAE PATIENT MEDICARE (WNR) MEDICARE (M) PART A Oct 15, 2008 PART A [id number] CARIE MAE PATIENT MEDICARE (WNR) MEDICARE (M) PART B Oct 15, 2008 PART B [id number] [phone] CARIE MAE PATIENT MEDICARE (WNR) MEDICARE (M) PART A Oct 15, 2008 PART A [id number] [phone] CARIE MAE PATIENT MEDICARE (WNR) MEDICARE (M) PART B Oct 15, 2008 PART B [id number] CARIE MAE PATIENT MEDICARE (WNR) MEDICARE (M) PART A Oct 15, 2008 PART A [id number] CARIE MAE PATIENT MEDICARE (WNR) MEDICARE (M) PART B Oct 15, 2008 PART B [id number] CARIE MAE PATIENT MEDICARE (WNR) MEDICARE (M) PART A Oct 15, 2008 PART A [id number] CARIE MAE PATIENT MEDICARE (WNR) MEDICARE (M) PART B Oct 15, 2008 PART B [id number] CARIE MAE PATIENT Selected Encounter This section includes the information on record at [place] for the Encounter. Date/Time Encounter Type Encounter Description Reason Pro vider Source May 26, 2024 02:30 PM Outpatient Encounter PM&RS PHYSICIAN IHE Encounter Template Text not used by [place] Plan of Treatment: Future Appointments (+ 6 months) and Future Tests (+/- 45 days) The Plan of Treatment section includes future care activities for the patient from all [place] treatmentfacilities. This section includes future appointments and future orders which are active, pending or scheduled. Future Appointments This section includes appointments that were scheduled to occur 6 months from the date of the Encounter, up to a maximum of 20 appointments. The data comes from all [place] treatment facilities. Appointment Date/Time Appointment Type Appointme nt Facility Name Jun 03, 2024 10:00 AM AMBULATORY - MEDICINE [place] [facility] [place] [facility] Jun 17, 2024 10:30 AM AMBULATORY - MEDICINE [place] [facility] [place] [facility] Sep 28, 2024 08:30 AM [facility]ULATORY [facility] [place] [facility] Active, Pending, and Scheduled Orders This section includes a listing of several types of active, pending, and scheduled orders, including clinic medications orders, diagnostic test orders, procedure orders and consult orders; where the start date of the order is 45 days before the date of the Encounter or 45 days after the date of theEncounter. The data comes from all [place] treatment facilities. Test Date/Time Test Type Test Details Facility Name Apr 21, 2024 01:04 PM Consult Order COMMUNITY CARE-UROLOGY Cons Depositing Machine Operator's Choice [facility] Lab Results: +/- 30 days of the encounter This section includes the Chemistry and Hematology Lab Results on record with [place] for the patient. Radiology Reports and Pathology Reports are provided separately, in subsequent sections. Lab Results This section contains the Chemistry/Hematology Results that were resulted 30 days before or 30 daysafter the date of the Encounter. Date/Time Source Result Type Result - Unit Interpretation Reference Range Comment May 04, 2024 07:49 AM [facility] PSA Specimen Type: SERUM No comment entered. Ordering Provider: NAVARRO LOPEZ Report Released Date/Time: Nov 11, 2023 11:31 AM Reporting [facility] [address] [address] Performing Lab: [facility] [address] PSA 4.75 ng/mL H 0.00-4.00 May 04, 2024 07:49 AM [facility] LIPID PANEL FASTING Specimen Type: SERUM No comment entered. Ordering Provider: NAVARRO LOPEZ Report Released Date/Time: Nov 11, 2023 11:31 AM Reporting Lab: [facility] [address] [address] Performing Lab: [facility] [address] CHOLESTEROL 192 mg/dL TRIGLYCERIDE 98 mg/dL 0-150 LDL calculated 130 mg/dL H 0-129 CHOL/HDL 4.6 HDL CHOLESTEROL 42 mg/dL 40-60 May 04, 2024 07:49 AM [facility] LIVER FUNCTION Specimen Type: SERUM No comment entered. Ordering Provider: NAVARRO LOPEZ Report Released Date/Time: Nov 11, 2023 11:31 AM Reporting Lab: [address] [address] Performing Lab: [address] [address] PROTEIN,TOTAL 6.9 g/dL 6.0-8.3 ALBUMIN 3.8 g/dL 3.5-5.0 ALKALINE PHOSPHATASE 44 U/L 40-150 AST 16 U/L 5-34 ALT 16 U/L BILIRUBIN, TOTAL 0.3 mg/dL 0.2-1.2 May 04, 2024 07:49 AM [facility] BASIC METABOLIC PANEL (fasting) Specimen Type: SERUM No comment entered. Ordering Provider: NAVARRO LOPEZ Report Released Date/Time: Nov 11, 2023 11:31 AM Reporting Lab: [address] [address] Performing Lab: [address] [address] UREA NITROGEN 18 mg/dL 7-25 GLUCOSE 100 mg/dL 65-100 SODIUM 137 mmol/L 135-145 POTASSIUM 4.8 mmol/L 3.5-5.0 CHLORIDE 104 mmol/L 100-110 CO2 25 meq/L 20-30 CREATININE, Serum 0.97 mg/dL 0.50-1.40 eGFR(CKD-EPI 2020) 78 mL/min >60 Vital Signs: All taken on the encounter date This section contains inpatient and outpatient Vital Signs collected on the date of the Encounter. Date/Time Temperature Pulse Blood Pressure Respiratory Rate SP02 Pain Height Weight Body Mass Index Source May 26, 2024 03:30 PM 65 140/80 20 98 3 [facility] May 26, 2024 02:55 PM 74 140/70 20 98 3 [place] [facility] Social History: Smoking Status (Most current) and Tobacco Use (All prior to encounter date) This section includes the most current, and the historical, smoking and tobacco- related health factors from the [place] facility where the Encounter took place. Current Smoking Status This section includes the most current smoking, or tobacco-related health factor, from the [place] facility where the Encounter took place. Date/Time Current Smoking Status Comment Facil ity Nov 11, 2023 11:00 AM VA-TOBACCO NEVER USED [place] [facility] Tobacco Use History This section includes a history of the smoking, or tobacco-related health factors, that were collected on or before the date of the Encounter. The data comes from the [place] facility where the Encounter took place. Date/Time Smoking Status/Tobacco Use Comment F acility Sep 27, 2022 10:30 AM VA-TOBACCO FORMER USER [facility] [place] [facility] Sep 27, 2022 10:30 AM VA-TOBACCO QUIT 15 YRS OR MORE [facility] [place] [facility] Aug 30, 2021 09:20 AM VA-TOBACCO FORMER USER [facility] [place] [facility] Aug 30, 2021 09:20 AM VA-TOBACCO QUIT 15 YRS OR MORE [facility] [place] [facility] August 07, 2020 09:00 AM VA-TOBACCO FORMER USER [facility] [place] [facility] August 07, 2020 09:00 AM VA-TOBACCO QUIT 15 YRS OR MORE [facility] [place] [facility] Jul 12, 2019 10:05 AM VA-TOBACCO FORMER USER [facility] [place] [facility] Jul 12, 2019 10:05 AM VA-TOBACCO QUIT 15 YRS OR MORE [facility] [place] [facility] Jul 03, 2018 10:51 AM VA-TOBACCO FORMER USER [facility] [place] [facility] Jul 03, 2018 10:51 AM VA-TOBACCO QUIT 5 TO < 15 YRS [facility] [place] [facility] Sep 01, 2017 10:25 AM QUIT TOBACCO USE > 7 YEARS AGO [facility] [place] [facility] Aug 29, 2016 09:22 AM QUIT TOBACCO USE > 7 YEARS AGO [facility] August 15, 2015 02:32 PM QUIT TOBACCO USE > 7 YEARS AGO [facility] Advance Directives: All historical and current Section Date Range: From patient's date of to the date document was created. This section includes ALL of a patient's completed or amended [place] Advance and Rescinded Directives. The entries below indicate that a directive exists for the patient, but an actual copy is not included with this document. The data comes from all [place] facilities. Date Advance Directives Provider Source Dec 17, 2018 ADVANCE DIRECTIVE XVAI HERNANDEZJAIME Gonzalez [facility] May 30, 2017 ADVANCE DIRECTIVE VICTOR MANUEL PAINTING [facility] Dec 25, 2005 ADVANCE DIRECTIVE IRENA OSEI [...] the Encounter. The data comes from all [place] treatment facilities. Date/Time Radiology Report Provider Source May 26, 2024 03:05 PM FLUOROSCOPIC ARIC NCE OF NEEDLE/SPINE: CAIRE MAE [id number] -1945 M [facility] Date: MAY 26, 2024@15:05 Req Phys: LISA LOPEZ Pat Loc: [facility] MED REHAB SPN TERESE ECHEVARRIA (Req' Img Loc: [facility]/BUILDING 1 Service: Unknown [facility] [place] [address] (Case [id number] COMPLETE) FLUOROSCOPIC GUIDANCE OF NEEDLE/S(RAD Detailed) CPT:08148 Reason for Study: transforaminal epidural steroid injection Clinical History: Report Status: Verified Date Reported: MAY 26, 2024 Date Verified: MAY 26, 2024 Functional Tester E-Sig:/ES/JOSE BEJARANO JR Report: Study: Pain injection [...] Primary Interpreting Staff: JOSE BEJARANO JR, Radiologist (Functional Tester) /JOSE MOORE JR [facility] Encounter Notes: All associated encounter notes This section contains the clinical notes associated to the Encounter. Date/Time Encounter Note(s) Provider Source May 26, 2024 03:04 PM DISCHARGE NOTE: [...] are experiencing problems contact: TELEPHONE ASSISTANCE at [phone] or extension [phone] Or [phone] extension [phone] (YANI Rodriguez) or extension [phone] (WANDER Rodriguez) If you are in an emotional crisis, feeling suicidal or having any troubling or self-destructive or violent impulses - please call [phone] (or [phone]); press 1 for Veterans to ask for [...] time of discharge. /juliann/ LISA LOPEZ DO REGIONAL TRAINER Signed: 05/26/2024 15:05 LISA LOPEZ [place] [facility]
--- OUTSIDE RECORDS SUMMARY | 2024-06-17 10:48 | XMS_ITS | Encounter Summary ---
Author Name [facility] [place] [facility] [place] Address [address] [place] [address] Care Team Providers Care Wealth Management Director Name Role Phone DIALN LOPEZ Primary Care Provider Unavail able Insurance [...] O MEDEX BRONZ E Oct 15, 2008 [id number] CARIE MAE PATIENT ANTHEM BCBS OF [place] (BLUECARD) MEDICARE SUPPLEMEN HUMZA MEDEX BRONZ E Feb 14, 2022 [id number] [phone] CARIE MAE PATIENT [place] SUPPLEMEN HUMZA MEDEX BRONZ E Feb 14, 2022 [id number] [phone] CAR[place]UM[place] MEDEX BRONZ E Oct 15, 2008 [id number] CARIE MAE PATIENT [place] SUPPLEMEN HUMZA MEDEX HEARI NG AND Mar 17, 2019 [id number] [phone] CARIE MAE PATIENT MEDICARE (WNR) MEDICARE (M) PART A Oct 15, 2008 PART A [id number] CARIE MAE PATIENT MEDICARE (WNR) MEDICARE (M) PART B Oct 15, 2008 PART B [id number] [phone] CARIE MAE PATIENT MEDICARE (WNR) MEDICARE (M) PART A Oct 15, 2008 PART A [id number] CARIE MAE PATIENT MEDICARE (WNR) MEDICARE (M) PART B Oct 15, 2008 PART B [id number] CARIE MAE PATIENT MEDICARE (WNR) MEDICARE (M) PART A Oct 15, 2008 PART A [id number] CARIE MAE PATIENT MEDICARE (WNR) MEDICARE (M) PART B Oct 15, 2008 PART B [id number] CARIE MAE PATIENT MEDICARE (WNR) MEDICARE (M) PART A Oct 15, 2008 PART A [id number] [phone] CARIE MAE PATIENT MEDICARE (WNR) MEDICARE (M) PART B Oct 15, 2008 PART B [id number] [phone] CARIE MAE PATIENT Selected Encounter This section includes the information on record at [place] for the Encounter. Date/Time Encounter Type Encounter Description Reason Provider Source Jun 14, 2024 07:30 AM EXERCISE CLASS HEALTH/WELLBEING [facility] ICD-10-CM Z72.3 Lack of physical exercise RODRIGO FERNANDEZ IHE Encounter Template Text not used by [place] Assessments - Encounter Diagnoses This section includes the primary and secondary diagnoses documented for the Encounter. Date/Time Primary/Secondary Diagnosis Diagnosis Name Provider Source Jun 14, 2024 10:11 AM PRIMARY Lack of physical exercise HAZEL PARIS [facility] [place] [facility] Plan of Treatment: Future Appointments (+ 6 months) and Future Tests (+/- 45 days) The Plan of Treatment section includes future care activities for the patient from all [place] treatmentfacilities. This section includes future appointments and future orders which are active, pending or scheduled. Future Appointments This section includes appointments that were scheduled to occur 6 months from the date of the Encounter, up to a maximum of 20 appointments. The data comes from all [place] treatment facilities. Appointment Date/Time Appointment Type Appointme nt Facility Name Jun 17, 2024 10:30 AM [facility] Sep 28, 2024 08:30 AM [facility] Social History: Smoking Status (Most current) and Tobacco Use (All prior to encounter date) This section includes the most current, and the historical, smoking and tobacco- related health factors from the [place] facility where the Encounter took place. Current Smoking Status This section includes the most current smoking, or tobacco-related health factor, from the [place] facility where the Encounter took place. Date/Time Current Smoking Status Comment Facil ity Nov 11, 2023 11:00 AM [facility]ACCO [facility] Tobacco Use History This section includes a history of the smoking, or tobacco-related health factors, that were collected on or before the date of the Encounter. The data comes from the [place] facility where the Encounter took place. Date/Time Smoking Status/Tobacco Use Comment F acility Sep 27, 2022 10:30 AM VA-TOBACCO FORMER USER [facility] [place] [facility] Sep 27, 2022 10:30 AM VA-TOBACCO QUIT 15 YRS OR MORE [place] [facility] [place] [facility] Aug 30, 2021 09:20 AM VA-TOBACCO FORMER USER [facility] [place] [facility] Aug 30, 2021 09:20 AM VA-TOBACCO QUIT 15 YRS OR MORE [facility] [place] [facility] August 07, 2020 09:00 AM VA-TOBACCO FORMER USER [facility] [place] [facility] August 07, 2020 09:00 AM VA-TOBACCO QUIT 15 YRS OR MORE [facility] [place] [facility] Jul 12, 2019 10:05 AM VA-TOBACCO FORMER USER [place] [facility] [place] [facility] Jul 12, 2019 10:05 AM VA-TOBACCO QUIT 15 YRS OR MORE [place] [facility] [place] [facility] Jul 03, 2018 10:51 AM VA-TOBACCO [facility] Jul 03, 2018 10:51 AM VA-TOBACCO QUIT 5 TO < 15 YRS [facility] Sep 01, 2017 10:25 AM QUIT TOBACCO USE > 7 YEARS AGO [facility] Aug 29, 2016 09:22 AM QUIT TOBACCO USE > 7 YEARS AGO [facility] August 15, 2015 02:32 PM QUIT TOBACCO USE > 7 YEARS AGO [facility] Advance Directives: All historical and current Section Date Range: From patient's date of to the date document was created. This section includes ALL of a patient's completed or amended [place] Advance and Rescinded Directives. The entries below indicate that a directive exists for the patient, but an actual copy is not included with this document. The data comes from all [place] facilities. Date Advance Directives Provider Source Dec 17, 2018 ADVANCE DIRECTIVE LIZ HERNANDEZ [facility] May 30, 2017 ADVANCE DIRECTIVE VICTOR MANUEL PAINTING [facility] Dec 25, 2005 ADVANCE DIRECTIVE [...] the Encounter. The data comes from all [place] treatment facilities. Date/Time Radiology Report Provider Source May 26, 2024 03:05 PM FLUOROSCOPIC ARIC NCE OF NEEDLE/SPINE: CARIE MAE [id number] -1945 M [place] Date: MAY 26, 2024@15:05 Req Phys: LISA LOPEZ Pat Loc: [facility] MED REHAB SPGaurang GUDINO MD (Req' Img Loc: [facility]/BUILDING 1 Service: Unknown [facility] [place] [address] (Case [id number] COMPLETE) FLUOROSCOPIC GUIDANCE OF NEEDLE/S(RAD Detailed) CPT:03139 Reason for Study: transforaminal epidural steroid injection Clinical History: Report Status: Verified Date Reported: MAY 26, 2024 Date Verified: MAY 26, 2024 General Education Instructor E-Sig:/ES/JOSE BEJARANO JR Report: Study: Pain injection [...] Primary Interpreting Staff: JOSE BEJARANO JR, Radiologist (General Education Instructor) /JOSE MOORE JR [facility] Encounter Notes: All associated encounter notes This section contains the clinical notes associated to the Encounter. Date/Time Encounter Note(s) Provider Source Jun 14, 2024 10:04 AM PHYSICAL MEDICINE REHAB NOTE: LOCAL TITLE: GEROFIT-SUPERVISED EXERCISE NOTE STANDARD TITLE: PHYSICAL MEDICINE REHAB NOTE DATE OF NOTE: JUN 14, 2024@10:04 ENTRY DATE: JUN 14, 2024@10:04:41 AUTHOR: SHANNON PARIS COSIGNER: URGENCY: STATUS: COMPLETED [place] participated in the [facility] exercise program today. Activities were focused on progression of their individual exercise prescription (cardiorespiratory fitness training, strength training, etc.) and group based exercise sessions to include, but not limited to: flexibility training, balance training, functional circuit training, Russ Chi for arthritis, and other functional strength and neuromotor exercises. Exercise participation was supervised by [facility] staff and any questions/concerns were addressed with the patient. Modifications were made to programming as appropriate to suit Veterans individual needs, preferences, and whole health concerns. /juliann/ NYLA CARABALLO LICENSE CIRCULATION ASSISTANT Signed: 06/14/2024 10:21 SHANNON PARIS [facility]
--- OUTSIDE RECORDS SUMMARY | 2024-06-17 10:48 | XMS_ITS ---
Author Organization [facility] Care Team Providers [employer] L[employer] Name Role Phone Javier Keita Unavailable Unavailable Megan Ramires Unavailable Unavailable Katie Navas Unavailable Unavailable Allergies and adverse reactions Code CodeSystem Substance Reaction Severity StartDate Concern Status Iodine Contrast Unknown 09/05/2022 activ e Bicalutamide Unknown 09/05/2022 active Care Team Name Role Address Phone Organization Dates Javier Keita PCP [address], [address], [facility] (Office): : [facility] 09/05/2022 - 09/16/2022 Megan Ramires Attending Physician [address], [address], [place] (Office): : [facility] 09/05/2022 - 09/16/2022 Katie Navas Attending Physician [address] [place] [address], [address], [place] (Office): [facility] 09/05/2022 - 09/16/2022 Immunizations Immunization Status Vaccine Details Vaccine Code CodeSystem Titus e Notes Influenza completed Influenza, split virus, trivalent, injectable, contains preservative 141 CVX created date: 09/06/2022 administered date: 12/05/2021 SARS-COV-2 (COVID-19) completed SARS-COV-2 (COVID-19) vaccine, mRNA, spike protein, LNP, preservative free, 50 mcg/0.5 mL dose Mfg: MODERNA Step 2 of Multi-step with next step required 221 CVX created date: 09/06/2022 administered date: 04/28/2020 SARS-COV-2 (COVID-19) completed SARS-COV-2 (COVID-19) vaccine, mRNA, spike protein, LNP, preservative free, 50 mcg/0.5 mL dose Mfg: MODERNA Step 1 of Multi-step with next step required 221 CVX created date: 09/06/2022 administered date: 03/31/2020 Moderna Covid-19 Booster (SARS-COV-2) vaccine completed SARS-COV-2 (COVID-19) vaccine, mRNA, spike protein, LNP, preservative free, 100 mcg/0.5mL dose or 50 mcg/0.25mL dose 207 CVX created date: 09/06/2022 administered date: 06/15/2021 Moderna Covid-19 Booster (SARS-COV-2) vaccine completed SARS-COV-2 (COVID-19) vaccine, mRNA, spike protein, LNP, preservative free, 100 mcg/0.5mL dose or 50 mcg/0.25mL dose 207 CVX created date: 09/06/2022 administered date: 12/08/2020 Moderna COVID-19 Bi-valent Solution completed SARS-COV-2 (COVID-19) vaccine, mRNA, spike protein, LNP, bivalent, preservative free, 50 mcg/0.5 mL or 25 mcg/0.25 mL dose 229 CVX created date: 09/06/2022 administered date: 12/05/2021 Mental Status Section Date Assessment Total Score Description 09/16/2022 BIMS 13 cognitively int act CAM 0 No delirium ind icated PHQ-9 03 minimal depress ion 09/10/2022 BIMS 09 moderate cognit patito impairment CAM 0 No delirium ind icated PHQ-9 03 minimal depress ion Problems Problem # Description Date of onset Resolved Date Code CodeSystem Concern Status 1 ENCOUNTER FOR OTHER ORTHOPEDIC AFTERCARE 09/05/[address] active 2 FRACTURE OF UNSPECIFIED PART OF NECK OF LEFT FEMUR, SUBSEQUENT ENCOUNTER FOR CLOSED FRACTURE WITH ROUTINE HEALING 09/05/[address] active 3 PRESENCE OF LEFT ARTIFICIAL HIP JOINT 09/05/[address] active 4 UNSPECIFIED PROTEIN-CALORIE MALNUTRITION 09/05/[address] active 5 ESSENTIAL (PRIMARY) HYPERTENSION 09/02/[address] active 6 PAROXYSMAL ATRIAL FIBRILLATION 09/01/[address] active 7 ELEVATED WHITE BLOOD CELL COUNT, UNSPECIFIED 08/30/[address] active 8 FREQUENCY OF MICTURITION 08/30/[address] active 9 BRADYCARDIA, UNSPECIFIED 01/04/[address] active 10 HYPERLIPIDEMIA, UNSPECIFIED 01/04/[address] active 11 OSTEOARTHRITIS OF KNEE, UNSPECIFIED 01/04/[address] active 12 OTHER PSORIASIS 01/04/[address] act patito 13 PRESENCE OF CARDIAC PACEMAKER 01/04/[address] active 14 PRIMARY OPEN-ANGLE GLAUCOMA, UNSPECIFIED EYE, STAGE UNSPECIFIED 01/04/[address] active 15 VERTEBROGENIC LOW BACK PAIN 01/04/[address] active 16 GASTRO-ESOPHAGEAL REFLUX DISEASE WITHOUT ESOPHAGITIS 04/07/[address] active 17 MALIGNANT NEOPLASM OF PROSTATE 04/07/[address] active 18 CALCULUS OF GALLBLADDER WITHOUT CHOLECYSTITIS WITHOUT OBSTRUCTION 03/17/[address] active Reason for Referral No Reasons for Referral Entered Social History Social History Observation Description Start Date End Date Code Code System Current Smoking Status Tobacco smoking consumption unknown 743288117 SNOMED CT Sex Assigned At Male 1945 94767-3 [facility] Vital Signs Code Code System Vitals Name Values and Units Timing Information 07556-5 [facility] Pain Level Value=0.0 09/16/2022 9279-1 [facility] Respiratory Rate Value=18.0 Units=/m in 09/15/2022 8462-4 [facility] Blood Pressure-Diastolic Value=66 Un its=mmHg 09/15/2022 8480-6 [facility] Blood Pressure-Systolic Dxzos=233 Un its=mmHg 09/15/2022 8310-5 [facility] Body Temperature Value=97.0 Units=?? F 09/15/2022 8867-4 [facility] Heart rate Value=85.0 Units=/min 04/2022 00740-0 [facility] O2 % BldC Oximetry Value=99.0 Units= % 09/15/2022 20405-1 [facility] Weight Grkpg=958.1 Units=Lbs 03/2022 8302-2 [facility] Height Value=70.0 Units=Inches 09/05/2022
--- OUTSIDE RECORDS SUMMARY | 2024-06-17 10:48 | XMS_ITS | Encounter Summary ---
Author Name [facility] [place] [facility] [facility] [place] Address [address] [place] [address] Care Team Providers Care Lace Winder Name Role Phone DILAN LOPEZ Primary Care [...] O MEDEX BRONZ E Oct 15, 2008 [id number] CARIE MAE PATIENT ANTHEM BCBS OF CT (BLUECARD) MEDICARE SUPPLEMEN HUMZA MEDEX BRONZ E Feb 14, 2022 [id number] CARIE MAE PATIENT [place] SUPP[place]UM[place] MEDEX BRONZ E Feb 14, 2022 [id number] [phone] CARIE MAE PATIENT [place] SUPPLEMEN [place]UM[place] MEDEX BRONZ E Oct 15, 2008 [id number] CARIE MAE [place] SU[place]UM[place] MEDEX HEARI NG AND Mar 17, 2019 [id number] CARIE MAE PATIENT MEDICARE (WNR) MEDICARE (M) PART A Oct 15, 2008 PART A [id number] CARIE MAE PATIENT MEDICARE (WNR) MEDICARE (M) PART B Oct 15, 2008 PART B [id number] CARIE MAE PATIENT MEDICARE (WNR) MEDICARE (M) PART A Oct 15, 2008 PART A [id number] CARIE MAE PATIENT MEDICARE (WNR) MEDICARE (M) PART B Oct 15, 2008 PART B [id number] [phone] CARIE MAE PATIENT MEDICARE (WNR) MEDICARE (M) PART A Oct 15, 2008 PART A [id number] [phone] CARIE MAE PATIENT MEDICARE (WNR) MEDICARE (M) PART B Oct 15, 2008 PART B [id number] CARIE MAE PATIENT MEDICARE (WNR) MEDICARE (M) PART A Oct 15, 2008 PART A [id number] [phone] CARIE MAE PATIENT MEDICARE (WNR) MEDICARE (M) PART B Oct 15, 2008 PART B [id number] [phone] CARIE MAE PATIENT Selected Encounter This section includes the information on record at CT for the Encounter. Date/Time Encounter Type Encounter Description Reason Provider Source Jun 16, 2024 07:30 AM EXERCISE CLASS HEALTH/WELLBEING [facility] ICD-10-CM Z72.3 Lack of physical exercise HAZEL PARIS E Encounter Template Text not used by CT Assessments - Encounter Diagnoses This section includes the primary and secondary diagnoses documented for the Encounter. Date/Time Primary/Secondary Diagnosis Diagnosis Name Provider Source Jun 16, 2024 10:53 AM PRIMARY Lack of physical exercise HAZEL PARIS [facility] Plan of Treatment: Future Appointments (+ 6 months) and Future Tests (+/- 45 days) The Plan of Treatment section includes future care activities for the patient from all CT treatmentfacilities. This section includes future appointments and future orders which are active, pending or scheduled. Future Appointments This section includes appointments that were scheduled to occur 6 months from the date of the Encounter, up to a maximum of 20 appointments. The data comes from all CT treatment facilities. Appointment Date/Time Appointment Type Appointme nt Facility Name Jun 17, 2024 10:30 AM AMBULATORY - MEDICINE CT [facility] [place] [facility] Sep 28, 2024 08:30 AM AMBULATORY - MEDICINE CT C [facility] [place] [facility] Dec 15, 2024 09:30 AM AMBULATORY - MEDICINE CT C [facility] [place] [facility] Dec 15, 2024 10:00 AM AMBULATORY - MEDICINE [facility] [place] [facility] Social History: Smoking Status (Most current) and Tobacco Use (All prior to encounter date) This section includes the most current, and the historical, smoking and tobacco- related health factors from the CT facility where the Encounter took place. Current Smoking Status This section includes the most current smoking, or tobacco-related health factor, from the CT facility where the Encounter took place. Date/Time Current Smoking Status Comment Facil ity Nov 11, 2023 11:00 AM VA-TOBACCO NEVER USED [facility] Tobacco Use History This section includes a history of the smoking, or tobacco-related health factors, that were collected on or before the date of the Encounter. The data comes from the CT facility where the Encounter took place. Date/Time Smoking Status/Tobacco Use Comment F acility Sep 27, 2022 10:30 AM VA-TOBACCO FORMER USER [facility] [place] [facility] Sep 27, 2022 10:30 AM VA-TOBACCO QUIT 15 YRS OR MORE [facility] [place] [facility] Aug 30, 2021 09:20 AM VA-TOBACCO FORMER USER [facility] [place] [facility] Aug 30, 2021 09:20 AM VA-TOBACCO QUIT 15 YRS OR MORE [facility] [place] [facility] August 07, 2020 09:00 AM VA-TOBACCO FORMER USER [facility] [place] [facility] August 07, 2020 09:00 AM VA-TOBACCO QUIT [address] [facility] [place] [facility] Jul 12, 2019 10:05 AM VA-TOBACCO FORMER USER CT [facility] [place] [facility] Jul 12, 2019 10:05 AM VA-TOBACCO QUIT [address] [facility] Jul 03, 2018 10:51 AM VA-TOBACCO FORMER USER CT [facility] [place] [facility] Jul 03, 2018 10:51 AM VA-TOBACCO QUIT 5 TO < [address] [facility] Sep 01, 2017 10:25 AM QUIT TOBACCO USE > [address] [facility] [place] [facility] Aug 29, 2016 09:22 AM QUIT TOBACCO USE > 7 [facility] August 15, 2015 02:32 PM QUIT TOBACCO USE > 7 YEARS AGO [facility] Advance Directives: All historical and current Section Date Range: From patient's date of to the date document was created. This section includes ALL of a patient's completed or amended CT Advance and Rescinded Directives. The entries below indicate that a directive exists for the patient, but an actual copy is not included with this document. The data comes from all CT facilities. Date Advance Directives Provider Source Dec 17, 2018 ADVANCE DIRECTIVE LIZ HERNANDEZ [facility] May 30, 2017 ADVANCE DIRECTIVE VICTOR MANUEL PAINTING CT [facility] Dec 25, 2005 ADVANCE DIRECTIVE IRENA OSEI [...] the Encounter. The data comes from all CT treatment facilities. Date/Time Radiology Report Provider Source May 26, 2024 03:05 PM FLUOROSCOPIC ARIC NCE OF NEEDLE/SPINE: CARIE MAE [id number] -[id number] M Exm Date: MAY 26, 2024@15:05 Req Phys: LISA LOPEZ THI Pat Loc: [facility] MED REHAB MIMA GUDINO MD (Req' Img Loc: [facility]/BUILDING 1 Service: Unknown [facility] CATHERINE ROJO [id number] (Case [id number] COMPLETE) FLUOROSCOPIC GUIDANCE OF NEEDLE/S(RAD Detailed) CPT:07058 Reason for Study: transforaminal epidural steroid injection Clinical History: Report Status: Verified Date Reported: MAY 26, 2024 Date Verified: MAY 26, 2024 Engineering Coordinator E-Sig:/[email or web address]/JOSE BEJARANO JR Report: Study: Pain injection [...] Primary Interpreting Staff: JOSE BEJARANO JR, Radiologist (Engineering Coordinator) /JOSE MOORE JR [facility] Encounter Notes: All associated encounter notes This section contains the clinical notes associated to the Encounter. Date/Time Encounter Note(s) Provider Source Jun 16, 2024 10:52 AM PHYSICAL MEDICINE REHAB NOTE: LOCAL TITLE: GEROFIT-SUPERVISED EXERCISE NOTE STANDARD TITLE: PHYSICAL MEDICINE REHAB NOTE DATE OF NOTE: JUN 16, 2024@10:52 ENTRY DATE: JUN 16, 2024@10:52:40 AUTHOR: SHANNON PARIS EXP COSIGNER: URGENCY: STATUS: COMPLETED [place] participated in the [facility] exercise program today. Activities were focused on progression of their individual exercise prescription (cardiorespiratory fitness training, strength training, etc.) and group based exercise sessions to include, but not limited to: flexibility training, balance training, functional circuit training, Russ Chi for arthritis, and other functional strength and neuromotor exercises. Exercise participation was supervised by [facility] staff and any questions/concerns were addressed with the patient. Modifications were made to programming as appropriate to suit Veterans individual needs, preferences, and whole health concerns. /juliann/ NYLA CARABALLO LICENSE [employer] C[employer] FEEDER Signed: 06/16/2024 10:58 SHANNON PARIS [facility]
--- OUTSIDE RECORDS SUMMARY | 2024-06-17 10:48 | XMS_ITS | Continuity of Care Document ---
Author Name [facility] Organization [facility] Care Team Providers Care Fiberglass Tube Molder Name Role Phone [facility] Unavailable Unavailable Problems Combined list of problems from Department of Defense and Veterans Affairs facilities. It does not include entries that were removed or entered in error. Problem Status Onset Date Problem Type Date of Resolution Comments Source Glaucoma * (ICD-9-CM 365.9) Active 006 Condition Jan 22, 2006 Entered By: SCOTT CARL Comment: ROMULO olea, September 2005 [facility] Atypical Chest Pain (ICD-9-CM 786.59) Active 006 Condition Mar 03, 2006 Entered By: SCOTT CARL Comment: Gated SPECT 05/09/05 neg EF 55% [facility] Cholelithiasis Active 005 Condition Apr 17, 2006 Entered By: SCOTT CARL Comment: 10/20 surgery [facility] Gastroesophageal Reflux Disorder Active 003 Condition Sep 03, 2007 Entered By: PATIENCE PEREZ Comment: EGD 08/31/07 Dr Marcelo ELLISON Prostate Cancer (ICD-9-CM 185.) Active 002 Condition Jan 22, 2006 Entered By: SCOTT CARL Comment: external beam 2006 Entered By: SCOTT CARL Comment: seed brachytherapy implant 09/15 [facility] Internal hemorrhoids without mention of complication Active 992 Condition [facility] Personal History of Colonic Polyps Active 990 Condition Sep 03, 2007 Entered By: PATIENCE PEREZ Comment: Neg colonsocpy 08/31/07 Dr Marcelo ELLISON Personal History of Colonic Polyps (ICD-9-CM V12.72) Active 990 Condition Jan 22, 2006 Entered By: SCOTT CARL Comment: x5 all b9Jan 22, 2006 Entered By: SCOTT CARL HER L Comment: colonscopy 2001 clean [facility] Blindness, one eye; low vision other eye (ICD-9-CM 369.10) Active 977 Condition [facility] AF- Atrial Fibrillation (SCT 27792841) Active Condition [facility] Benign essential hypertension (SNOMED CT 8046541) Active Condition May 26, 2007 Entered By: PATIENCE PEREZ Comment: 01/20 Stress ECHO negative 04/22 Spect EF 55% [facility] Cardiac pacemaker in situ Active Condition August 07, 2020 Entered By: AMMY LOPEZ AM Comment: FoxyP2 Product ICM model M301 serial [id number] May,. [facility] Environmental Allergies (ICD-9-CM 477.9) Active Condition [facility] Family History, Colonic Polyps (ICD-9-CM V18.51) Active Condition Jan 22 Entered By: SCOTT CARL HER L Comment: mother age 47 colon cancer -[facility] Herniated Disc Active Condition Feb Entered By: PASHA ABEL Comment: L4-5 [facility] Hyperlipidemia Active Condition [place] Hypertension * (ICD-9-CM 401.9) Active Condition [facility] Knee Joint replacement Status (Prosthetic or Artificial Device) (ICD-9-CM V43.65 Active Condition Jan 22 6 Entered By: SCOTT CARL HER L Comment: left 2002 [facility] Long-term current use of anticoagulant Active Condition [facility] Obesity Active Condition [facility] Open Angle Glaucoma Active Condition [facility] Optic Neuropathy, Ischemic Active Condition [facility] Osteoarthrosis involving the knee (ICD-9-CM 715.98) Active Condition [facility] Osteoarthrosis, unspecified whether generalized or localized, involving unspecif Active Condition Feb 20 007 Entered By: PASHA ABEL Comment: Left knee replacement 04, [facility] Pain in joint involving shoulder region (ICD-9-CM 719.41) Active Condition [place] Prostate cancer (SNOMED CT 409340503) Active Condition Feb 20, 2007 Entered By: PASHA ABEL Comment: 02; T2anx sulaiman 4/4, psa 13.5Jan 2007 Entered By: PASHA ABEL Comment: lupron 02, seed brachytherapy implant 09/15, xrt ext beam08/16Aug 2021 Entered By: SALLIE WHITE Comment: metastatic prostate ca, on ADT/Zytiga s/p bilaterally orchiectomy on 09/28/[address] Santos [facility] Psoriasis Active Condition [facility] Psoriasis * (ICD-9-CM 696.1) Active Condition [facility] Sleep apnoea Active Condition [facility] Dyspepsia Inactive Condition 09/03/2007 [facility] Personal History of Alcoholism Inactive Condition 09/03/2007 [facility] SCREEN Inactive Condition 05/21/2007 Feb 20, 2 007 Entered By: PASHA ABEL Comment: order hepc ab with next labs for screen [facility] SCREEN Inactive Condition 05/26/2007 Mar 25, 2 008 Entered By: PASHA ABEL Comment: stress echo 01/20 nl, gated spect 04/22 neg, ef55% [facility] Diagnosis: ICD-10-CM Z72.3 Lack of physical exercise Active Diagnosis [facility] Diagnosis: ICD-10-CM I11.9 Hypertensive heart disease without heart failure Active Diagnosis [facility] Diagnosis: ICD-10-CM G47.30 Sleep apnea, unspecified Active Diagnosis [facility] Diagnosis: ICD-10-CM H40.1131 Primary open-angle glaucoma, bilateral, mild stage Active Diagnosis [facility] Diagnosis: ICD-10-CM D07.5 Carcinoma in situ of prostate Active Diagnosis [facility] Diagnosis: ICD-10-CM Z71.89 Other specified counseling Active Diagnosis [facility] Diagnosis: ICD-10-CM M48.07 Spinal stenosis, lumbosacral region Active Diagnosis [facility] Diagnosis: ICD-10-CM R82.81 Pyuria Active Diagnosis [facility] Diagnosis: ICD-10-CM R30.0 Dysuria Active Diagnosis [facility] Diagnosis: ICD-10-CM Z04.89 Encounter for examination and observation for oth reasons Active Diagnosis [facility] Diagnosis: ICD-10-CM I10 Essential (primary) hypertension Active Diagnosis [facility] Diagnosis: ICD-10-CM M54.16 Radiculopathy, lumbar region Active Diagnosis [facility] Diagnosis: ICD-10-CM I48.91 Unspecified atrial fibrillation Active Diagnosis [facility] Diagnosis: ICD-10-CM Z46.1 Encounter for fitting and adjustment of hearing aid Active Diagnosis [facility] Diagnosis: ICD-10-CM Z46.0 Encounter for fit/adjst of spectacles and contact lenses Active Diagnosis [facility] Diagnosis: ICD-10-CM M75.102 Unsp rotatr-cuff tear/ruptr of left shoulder, not trauma Active Diagnosis [facility] Diagnosis: ICD-10-CM Z04.9 Encounter for examination and observation for unsp reason Active Diagnosis [facility] Diagnosis: ICD-10-CM L03.90 Cellulitis, unspecified Active Diagnosis [facility] Diagnosis: ICD-10-CM M75.20 Bicipital tendinitis, unspecified shoulder Active Diagnosis [facility] Diagnosis: ICD-10-CM M75.00 Adhesive capsulitis of unspecified shoulder Active Diagnosis [facility] Diagnosis: ICD-10-CM L03.114 Cellulitis of left upper limb Active Diagnosis [facility] Diagnosis: ICD-10-CM G47.33 Obstructive sleep apnea (adult) (pediatric) Active Diagnosis [facility] Diagnosis: ICD-10-CM Z23 Encounter for immunization Active Diagnosis [facility] Diagnosis: ICD-10-CM Z47.89 Encounter for other orthopedic aftercare Active Diagnosis [facility] Diagnosis: ICD-10-CM R94.5 Abnormal results of liver function studies Active Diagnosis [facility] Diagnosis: ICD-10-CM Z96.642 Presence of left artificial hip joint Active Diagnosis [facility] Medications Combined list of outpatient medications from Department of Defense and Veterans Affairs facilities.Medications provided include 1) outpatient medications from the last 15 months, and 2) patient-reported medications. Medication Details Route Status Patient Instructions Prescription Expires Prescription Number Last Dispense Date Ordering Provider Order Date Order Qty Source APIXABAN 5MG TAB TAKE ONE TABLET BY MOUTH TWICE DAILY ORAL ACTIVE 08/27/2024 [id number] DILAN LOPEZ 2023 180 [facility] APIXABAN 5MG TAB TAKE ONE TABLET BY MOUTH TWICE DAILY ORAL DISCONT INUED 12/18/2023 [id number] DILAN LOPEZ 2022 180 [facility] [place] 0.005% CREAM,TOP APPLY TO AFFECTED AREA ON SKIN DIRECTED TOPICA L ACTIVE ZEV CORONEL 2005 [facility] CALCIUM 250MG/VITAM IN D 125UNIT TAB TAKE ONE BY MOUTH ONCE DAILY ORAL ACTIVE DILAN LOPEZ 2024 [facility] CARBOXYMETH YLCELLULOSE NA 0.5% SOLN,OPH INSTILL 1 DROP INTO EACH EYE FOUR TIMES A DAY FOR DRY EYE OPHTHA LMIC ACTIVE 05/15/2025 [id number] ANA MUIR 2024 45 [facility] CARBOXYMETH YLCELLULOSE NA 1% GEL,OPH APPLY 1 DROP INTO EACH EYE FOUR TIMES A DAY FOR DRY EYE OPHTHA LMIC 12/12/2023 [id number] WOOD,LAC EY J 2022 45 [facility] CEPHALEXIN 250MG CAP TAKE ONE CAPSULE BY MOUTH FOUR TIMES A DAY FOR INFECTIO N CAUSED BY BACTERIA FOR INFECTIO N ORAL 08/14/2023 [id number] DILAN LOPEZ 2023 56 [facility] CEPHALEXIN 500MG CAP TAKE ONE CAPSULE BY MOUTH EVERY 8 HOURS FOR INFECTIO N CAUSED BY BACTERIA FOR INFECTIO N ORAL DISCONT INUED (EDIT) 04/21/2024 [id number] AG LION 2024 21 [facility] DAROLUTAMID E 300MG TAB TAKE TWO TABLETS BY MOUTH TWICE DAILY ORAL ACTIVE 04/20/2025 [id number] KAYLAI LILIBETH OSWALD 2024 120 [facility] DENOSUMAB (PROLIA) PA-F INJ,SOLN INJECT ACTIVE DILAN LOPEZ 2023 [facility] DICLOXACILL IN NA 250MG CAP TAKE ONE CAPSULE BY MOUTH FOUR TIMES A DAY FOR INFECTIO N CAUSED BY BACTERIA FOR INFECTIO N ORAL DISCONT INUED BY PROVIDE R 08/14/2023 [id number] 4 DILAN LOPEZ 2023 56 [facility] HYDROCHLORO THIAZIDE 12.5MG CAP TAKE ONE CAPSULE BY MOUTH EVERY MORNING FOR HIGH BLOOD PRESSURE ORAL ACTIVE 12/18/2024 [id number] DILAN LOPEZ 2023 90 [facility] HYDROCHLORO THIAZIDE 12.5MG CAP TAKE ONE CAPSULE BY MOUTH EVERY MORNING FOR HIGH BLOOD PRESSURE ORAL DISCONT INUED BY PROVIDE R 08/19/2024 [id number] DILAN FELTON 2023 90 [facility] HYDROCHLORO THIAZIDE 12.5MG CAP TAKE ONE CAPSULE BY MOUTH EVERY MORNING FOR HIGH BLOOD PRESSURE ORAL DISCONT INUED (EDIT) 09/28/2023 [id number] DILAN LOPEZ 2022 30 [facility] HYDROCHLORO THIAZIDE 25MG TAB TAKE ONE TABLET BY MOUTH EVERY MORNING FOR HIGH BLOOD PRESSURE ORAL DISCONT INUED BY PROVIDE R 12/10/2024 [id number] DILAN LOPEZ 2023 90 [facility] LIDOCAINE 5% OINT,TOP APPLY SMALL AMOUNT TOPICALL Y FOUR TIMES DAILY NEEDED FOR LEFT SHOULDER PAIN TOPICA L ACTIVE 05/19/2025 [id number] 5 DILAN LOPEZ 2024 35 [facility] LIDOCAINE 5% OINT,TOP APPLY SMALL AMOUNT TOPICALL Y FOUR TIMES DAILY NEEDED FOR LEFT SHOULDER PAIN TOPICA L DISCONT INUED 04/15/2025 [id number] SEVEN [facility]Z [facility] 2024 35 [facility] LIDOCAINE 5% OINT,TOP APPLY SMALL AMOUNT TOPICALL Y FOUR TIMES DAILY NEEDED FOR LEFT SHOULDER PAIN TOPICA L DISCONT INUED 11/11/2024 [id number] DILAN LOPEZ 2023 30 [facility] LIDOCAINE 5% OINT,TOP APPLY SMALL AMOUNT TOPICALL Y FOUR TIMES DAILY NEEDED FOR LEFT SHOULDER PAIN TOPICA L DISCONT INUED 08/12/2024 [id number] SEVEN [facility]Z [facility] 2023 30 [facility] LIDOCAINE 5% PATCH APPLY 2 PATCHES TOPICALL Y ONCE DAILY NEEDED FOR LOW BACK PAIN (LEAVE PATCH ON FOR 12 HOURS, THEN REMOVE PATCH) TOPICA L ACTIVE 05/05/2025 [id number] DILAN LOPEZ 2024 60 [facility] LIDOCAINE 5% PATCH APPLY 1 PATCH TOPICALL Y ONCE DAILY NEEDED FOR LOW BACK PAIN (LEAVE PATCH ON FOR 12 HOURS, THEN REMOVE PATCH) TOPICA L DISCONT INUED (EDIT) 11/11/2024 [id number] 4 DILAN LOPEZ 2023 30 [facility] LIDOCAINE 5% PATCH APPLY 1 PATCH TOPICALL Y ONCE DAILY NEEDED FOR LOW BACK PAIN (LEAVE PATCH ON FOR 12 HOURS, THEN REMOVE PATCH) TOPICA L DISCONT INUED 08/12/2024 [id number] SEVEN LOPEZ 2023 30 [facility] LISINOPRIL 10MG TAB TAKE ONE TABLET BY MOUTH TWICE DAILY TO CONTROL BLOOD PRESSURE ORAL DISCONT INUED (EDIT) 11/11/2024 [id number] DILAN LOPEZ 2023 180 [facility] LISINOPRIL 10MG TAB TAKE ONE TABLET BY MOUTH TWICE DAILY TO CONTROL BLOOD PRESSURE ORAL DISCONT INUED 04/28/2024 [id number] RA ALEJO WHITE 2023 180 [facility] LISINOPRIL 20MG TAB TAKE ONE TABLET BY MOUTH ONCE DAILY TO CONTROL BLOOD PRESSURE ORAL ACTIVE 05/19/2025 [id number] DILAN LOPEZ 2024 90 [facility] LISINOPRIL 20MG TAB TAKE ONE TABLET BY MOUTH TWICE DAILY TO CONTROL BLOOD PRESSURE ORAL DISCONT INUED (EDIT) 12/18/2024 [id number] DILAN LOPEZ 2023 180 [facility] MINERAL OIL,LIGHT/P ETROLATUM (PF) OINT,OPH APPLY THIN RIBBON INTO EACH EYE AT BEDTIME FOR DRY EYE OPHTHA LMIC ACTIVE 05/15/2025 [id number] WOOD,LAC EY J 2024 3 [facility] MINERAL OIL,LIGHT/P ETROLATUM (PF) OINT,OPH APPLY THIN RIBBON INTO EACH EYE AT BEDTIME FOR DRY EYE OPHTHA LMIC 12/12/2023 [id number] WOOD,LAC EY J 2022 3 [facility] MIRABEGRON 25MG TAB,SA TAKE ONE TABLET BY MOUTH ONCE DAILY ORAL SUSPEND ED 11/11/2024 [id number] 5 DILAN LOPEZ 2023 90 [facility] MIRABEGRON 25MG TAB,SA TAKE ONE TABLET BY MOUTH ONCE DAILY ORAL DISCONT INUED 11/14/2023 [id number] SARAH BAIRD MD 2022 90 [facility] VITAMIN D3 (CHOLECALCI FEROL) TAB TAKE BY MOUTH ORAL ACTIVE DILAN LOPEZ 2017 [facility] Allergies, Adverse Reactions, Alerts Combined list of allergies from Department of Defense and Veterans Affairs facilities. It does not include entries that were removed or entered in error. Substance Category Reaction Severity Reaction type Status Date Reported Comments Source BICALUTAMIDE Propensity to adverse reactions to drug (finding) Generalized aches and pains active 7 [facility] Propensity to adverse reactions to drug (finding) Eruption active 6 [facility] Propensity to adverse reactions to drug (finding) Urticaria active 7 [facility] Immunizations Combined list of available immunizations from the Department of Defense and Veterans Affairs facilities. Immunization Series Date Given Administered By Site Reaction Lot Number CVX Code Drug Lumber Checker Status Comments Source COVID-19 (MODERNA), MRNA, LNP-S, PF, 50 MCG/0.5 ML (AGES 12+ YEARS) 1 2023 312 complet ed Mfr: GLAXOSMIT HKLINE [facility] RSV, BIVALENT, PROTEIN SUBUNIT RSVPREF, DILUENT RECONSTITUTED , 0.5 ML, PF 1 2023 305 complet ed Lot#: [id number] [facility] TDAP 2023 115 complet ed Lot#: [id number] Mfr: GLAXOSMIT HKLINE [facility] INFLUENZA, UNSPECIFIED FORMULATION 2023 88 complet ed [facility] HEP A-HEP B 3 2023 LISETTE MACIEL E LEFT DELTO ID [id number] 104 complet ed [facility] HEP A-HEP B 2 2022 KELSY ZHOU RIGHT DELTO ID [id number] 104 complet ed [facility] HEP A-HEP B 1 2022 LISETTE MACIEL RIGHT DELTO ID [id number] 104 complet ed [facility] COVID-19 (PFIZER), MRNA, LNP-S, PF, JUMANA-SUCROSE, 30 MCG/0.3 ML (AGES 12+ YEARS) 1 2022 309 complet ed [facility] INFLUENZA, UNSPECIFIED FORMULATION 2022 88 complet ed [facility] TDAP 2022 LISETTE MACIEL LEFT DELTO ID [id number] 115 complet ed [facility] INFLUENZA, UNSPECIFIED FORMULATION 2021 88 complet ed [facility] COVID-19 (PFIZER), MRNA, LNP-S, BIVALENT, PF, 30 MCG/0.3 ML DOSE 5 2021 300 complet ed [facility] COVID-19 (MODERNA), MRNA, LNP-S, PF, 100 MCG/0.5ML DOSE OR 50 MCG/0.25ML DOSE 3 2021 207 complet ed [facility] COVID-19 (MODERNA), MRNA, LNP-S, PF, 100 MCG OR 50 MCG DOSE 3 2020 207 complet ed [facility] INFLUENZA VACCINE, QUADRIVALENT, ADJUVANTED 2020 205 complet ed [facility] COVID-19 (MODERNA), MRNA, LNP-S, PF, 100 MCG/0.5 ML DOSE 2 2020 207 complet ed MOD; [id number]; 1 [facility] COVID-19 (MODERNA), MRNA, LNP-S, PF, 100 MCG/0.5 ML DOSE 1 2020 207 complet ed MOD; [id number]; 1 [facility] ZOSTER RECOMBINANT 2 2019 187 complet ed [facility] ZOSTER RECOMBINANT 1 2019 187 complet ed [facility] INFLUENZA, UNSPECIFIED FORMULATION 2019 88 complet ed [facility] INFLUENZA, SEASONAL, INJECTABLE 2018 141 complet ed high dose flu [facility] on [facility] INFLUENZA, SEASONAL, INJECTABLE 2017 141 complet ed [facility] INFLUENZA, SEASONAL, INJECTABLE 2016 141 complet ed [facility] FLU,3 YRS (HISTORICAL) 2015 88 complet ed [facility] PNEUMOCOCCAL CONJUGATE PCV 13 2014 133 complet ed outside imm record [facility] DTAP, UNSPECIFIED FORMULATION 2012 107 complet ed Site: Left Deltoid [facility] FLU,3 YRS (HISTORICAL) 2012 88 complet ed Site: Left Deltoid [facility] FLU,3 YRS (HISTORICAL) 2011 88 complet ed [facility] FLU,3 YRS (HISTORICAL) 2010 88 complet ed [facility] FLU,3 YRS (HISTORICAL) 2009 88 complet ed [facility] TD(ADULT) UNSPECIFIED FORMULATION 2009 139 complet ed [facility] NOVEL INFLUENZA-H1N 1-09, ALL FORMULATIONS 2009 128 complet ed [facility] FLU,3 YRS (HISTORICAL) 2008 88 complet ed [facility] PNEUMOCOCCAL, UNSPECIFIED FORMULATION 2008 109 complet ed See immunizat ion record [place] ZOSTER LIVE 2008 SAMARIA SIMONS 121 complet ed [place] FLU,3 YRS (HISTORICAL) 2007 88 complet ed Site: Left Deltoid [facility] FLU,3 YRS (HISTORICAL) 2006 88 complet ed [facility] INFLUENZA, UNSPECIFIED FORMULATION 2006 MARIELLE AGUERO 88 comple t ed [facility] FLU,3 YRS (HISTORICAL) 2006 88 complet ed [place] PNEUMOCOCCAL, UNSPECIFIED FORMULATION 2005 NONE 109 complet ed [facility] TD(ADULT) UNSPECIFIED FORMULATION 2005 139 complet ed [facility] INFLUENZA, UNSPECIFIED FORMULATION 2005 88 complet ed [facility] PNEUMOCOCCAL POLYSACCHARID E [id number] 1999 33 complet ed [facility] Results Combined list of recent chemistry, hematology and other laboratory results from Department of Defense and Veterans Affairs, ranging from 15 months to all on record, depending upon the facility. Order Name Results Value Reference Range Date Interpretation Specimen Comments Source PSA PROSTATE SPECIFIC AG [MASS/VOLUM E] IN SERUM OR PLASMA 4.75 ng/mL 0.00 - 4.00 05/04 H Specimen Type: SERUM No comment entered. Ordering Provider: Rema LOPEZ Report Released Date/Time: Nov 11, 2023 11:31 AM Reporting Lab: [facility] [address] [address] Performing Lab: [facility] [place] [facility] [address] [address] [facility] LIVER FUNCTION PROTEIN [MASS/VOLUM E] IN SERUM OR PLASMA 6.9 g/dL 6.0 - 8.3 05/04 Specimen Type: SERUM No comment entered. Ordering Provider: Rema LOPEZ Report Released Date/Time: Nov 11, 2023 11:31 AM Reporting Lab: [facility] [address] [address] Performing Lab: [facility] [place] [facility] [address] [address] [facility] LIVER FUNCTION ALBUMIN [MASS/VOLUM E] IN SERUM OR PLASMA 3.8 g/dL 3.5 - 5.0 05/04 Specimen Type: SERUM No comment entered. Ordering Provider: Rema LOPEZ Report Released Date/Time: Nov 11, 2023 11:31 AM Reporting Lab: [facility] [place] [facility] [address] [address] Performing Lab: [facility] [place] [facility] [address] [address] [facility] [facility] LIVER FUNCTION ALKALINE PHOSPHATASE [ENZYMATIC ACTIVITY/VO LUME] IN SERUM OR PLASMA 44 U/L 40 - 150 05/04 Specimen Type: SERUM No comment entered. Ordering Provider: Rema LOPEZ Report Released Date/Time: Nov 11, 2023 11:31 AM Reporting Lab: [facility] [place] [facility] [address] [facility] [address] Performing Lab: [facility] [place] [facility] [address] [address] [facility] LIVER FUNCTION ASPARTATE AMINOTRANSF ERASE [ENZYMATIC ACTIVITY/VO LUME] IN SERUM OR PLASMA 16 U/L 5 - 34 05/04 Specimen Type: SERUM No comment entered. Ordering Provider: Rema LOPEZ Report Released Date/Time: Nov 11, 2023 11:31 AM Reporting Lab: [facility] [place] [facility] [address] [facility] [address] Performing Lab: [facility] [place] [facility] [address] [address] [facility] LIVER FUNCTION ALANINE AMINOTRANSF ERASE [ENZYMATIC ACTIVITY/VO LUME] IN SERUM OR PLASMA 16 U/L 05/04 Specimen Type: SERUM No comment entered. Ordering Provider: Rema LOPEZ Report Released Date/Time: Nov 11, 2023 11:31 AM Reporting Lab: [facility] [place] [facility] [address] [address] Performing Lab: [facility] [place] [facility] [address] [address] [facility] LIVER FUNCTION BILIRUBIN.T OTAL [MASS/VOLUM E] IN SERUM OR PLASMA 0.3 mg/dL 0.2 - 1.2 05/04 Specimen Type: SERUM No comment entered. Ordering Provider: Rema LOPEZ Report Released Date/Time: Nov 11, 2023 11:31 AM Reporting Lab: [facility] [place] [facility] [address] [facility] [address] Performing Lab: [facility] [place] [facility] [address] [facility] [address] [facility] [facility] LIPID PANEL FASTING CHOLESTEROL [MASS/VOLUM E] IN SERUM OR PLASMA 192 mg/dL 05/04 Specimen Type: SERUM No comment entered. Ordering Provider: Rema LOPEZ Report Released Date/Time: Nov 11, 2023 11:31 AM Reporting Lab: [facility] [place] [facility] [address] [facility] [address] Performing Lab: [facility] [place] [facility] [address] [facility] [address] [facility] LIPID PANEL FASTING TRIGLYCERID E [MASS/VOLUM E] IN SERUM OR PLASMA 98 mg/dL 0 - 150 05/04 Specimen Type: SERUM No comment entered. Ordering Provider: Rema LOPEZ Report Released Date/Time: Nov 11, 2023 11:31 AM Reporting Lab: [facility] [address] [address] Performing Lab: [facility] [address] [address] [facility] LIPID PANEL FASTING CHOLESTEROL IN LDL [MASS/VOLUM E] IN SERUM OR PLASMA BY CALCULATION 130 mg/dL 0 - 129 05/04 H Specimen Type: SERUM No comment entered. Ordering Provider: Rema LOPEZ Report Released Date/Time: Nov 11, 2023 11:31 AM Reporting Lab: [facility] [address] [facility] [facility] [address] Performing Lab: [facility] [address] [facility] [address] [facility] LIPID PANEL FASTING CHOLESTEROL .TOTAL/CHOL ESTEROL IN HDL [MASS RATIO] IN SERUM OR PLASMA 4.6 05/04 Specimen Type: SERUM No comment entered. Ordering Provider: Rema LOPEZ Report Released Date/Time: Nov 11, 2023 11:31 AM Reporting Lab: [facility] [place] [facility] [address] [facility] [address] Performing Lab: [facility] [place] [facility] [address] [facility] [address] [facility] [place] [facility] LIPID PANEL FASTING CHOLESTEROL IN HDL [MASS/VOLUM E] IN SERUM OR PLASMA 42 mg/dL 40 - 60 05/04 Specimen Type: SERUM No comment entered. Ordering Provider: Rema LOPEZ Report Released Date/Time: Nov 11, 2023 11:31 AM Reporting Lab: [facility] [place] [facility] [address] [facility] [address] Performing Lab: [facility] [place] [facility] [address] [facility] [address] [facility] [place] [facility] BASIC METABOLIC PANEL (fasting) UREA NITROGEN [MASS/VOLUM E] IN SERUM OR PLASMA 18 mg/dL 7 - 25 05/04 Specimen Type: SERUM No comment entered. Ordering Provider: Rema LOPEZ Report Released Date/Time: Nov 11, 2023 11:31 AM Reporting Lab: [facility]ENTER[facility] [address] Performing Lab: [facility]ENTERUSE[address] [address] [facility] BASIC METABOLIC PANEL (fasting) GLUCOSE [MASS/VOLUM E] IN SERUM OR PLASMA 100 mg/dL 65 - 100 05/04 Specimen Type: SERUM No comment entered. Ordering Provider: Rema LOPEZ Report Released Date/Time: Nov 11, 2023 11:31 AM Reporting Lab: [facility] TRN [address] [address] Performing Lab: [facility]ENTERUSE[address] [address] [facility]RUSA [facility] HOSPITALTRN [facility] BASIC METABOLIC PANEL (fasting) SODIUM [MOLES/VOLU ME] IN SERUM OR PLASMA 137 mmol/L 135 - 145 05/04 Specimen Type: SERUM No comment entered. Ordering Provider: Rema LOPEZ Report Released Date/Time: Nov 11, 2023 11:31 AM Reporting Lab: [facility]ENTERUSE[address] [address] Performing Lab: [facility]ENTERUSE[address] [address] [facility] BASIC METABOLIC PANEL (fasting) POTASSIUM [MOLES/VOLU ME] IN SERUM OR PLASMA 4.8 mmol/L 3.5 - 5.0 05/04 Specimen Type: SERUM No comment entered. Ordering Provider: Rema LOPEZ Report Released Date/Time: Nov 11, 2023 11:31 AM Reporting Lab: [facility]ENTERUSE[address] [address] Performing Lab: [facility] [place] [facility] [address] [facility] [address] [facility]ENTERUSE [facility] BASIC METABOLIC PANEL (fasting) CHLORIDE [MOLES/VOLU ME] IN SERUM OR PLASMA 104 mmol/L 100 - 110 05/04 Specimen Type: SERUM No comment entered. Ordering Provider: Rema LOPEZ Report Released Date/Time: Nov 11, 2023 11:31 AM Reporting Lab: [facility] [address] [facility] [address] Performing Lab: [facility]ENTERUSE[facility] [address] [facility] [address] [facility]RL [facility]AL[facility]ITALN [facility] BASIC METABOLIC PANEL (fasting) CARBON DIOXIDE, TOTAL [MOLES/VOLU ME] IN SERUM OR PLASMA 25 meq/L 20 - 30 05/04 Specimen Type: SERUM No comment entered. Ordering Provider: Rema LOPEZ Report Released Date/Time: Nov 11, 2023 11:31 AM Reporting Lab: [facility] TRN [facility] [address] [facility] [address] Performing Lab: [facility]ENTERUSE[facility] [address] [facility] [address] [facility]ALU[facility] HOSPITALN [facility] BASIC METABOLIC PANEL (fasting) CREATININE [MASS/VOLUM E] IN SERUM OR PLASMA 0.97 mg/dL 0.50 - 1.40 05/04 Specimen Type: SERUM No comment entered. Ordering Provider: Rema LOPEZ Report Released Date/Time: Nov 11, 2023 11:31 AM Reporting Lab: [facility] [address] [facility] [address] Performing Lab: [facility]ENTERUSE[facility] [address] [facility] [address] [facility] TRN [facility] BASIC METABOLIC PANEL (fasting) GLOMERULAR FILTRATION RATE/1.73 SQ M.PREDICTED [VOLUME RATE/AREA] IN SERUM, PLASMA OR BLOOD BY CREATININE- BASED FORMULA (CKD-EPI 2020) 78 mL/min 60 05/04 Specimen Type: SERUM No comment entered. Ordering Provider: Rema LOPEZ Report Released Date/Time: Nov 11, 2023 11:31 AM Reporting Lab: [facility] CENTERUSETS [address] [address] Performing Lab: [facility]RL [facility] CENTERUSETS [address] [address] [facility]RL WSTRN [facility]PITALCHUSE [facility] MICROSCOP IC AUTOMATED , URINE LEUKOCYTES [#/AREA] IN URINE SEDIMENT BY MICROSCOPY HIGH POWER FIELD 6-10/[ HPF] 0 - 5 03/22 H Specimen Type: URINE Comment: If Glucose = >500 and Ketones are positive, please alert the Physician. Ordering Provider: JULIA LION Report Released Date/Time: Mar 22, 2024 07:54 AM Reporting Lab: [facility]ALTHRUSA [facility] PROVIDENCE HOSPITALTRN [facility]ENTERUSE[address] [address] Performing Lab: [facility]ALTHRUSA [facility] PROVIDENCE HOSPITALTRN [facility]ENTERUSE[address] [address] [facility]RUSA [facility] PROVIDENCE HOSPITALTRN [facility]ENTERUSE [facility] MICROSCOP IC AUTOMATED , URINE MUCUS [#/AREA] IN URINE SEDIMENT BY MICROSCOPY LOW POWER FIELD FEW/[L PF] 03/22 Specimen Type: URINE Comment: If Glucose = >500 and Ketones are positive, please alert the Physician. Ordering Provider: JULIA LION Report Released Date/Time: Mar 22, 2024 07:54 AM Reporting Lab: [facility]ALTHRUSA [facility] PROVIDENCE HOSPITALTRN [facility]ENTERUSE[address] [address] Performing Lab: [facility]RL [facility]N [facility] CENTERUSETS [address] [address] [facility]ALTHRUSA [facility] PROVIDENCE HOSPITALTRN [facility]OSPITALCHUSE [facility] MICROSCOP IC AUTOMATED , URINE ERYTHROCYTE S [#/AREA] IN URINE SEDIMENT BY MICROSCOPY HIGH POWER FIELD 0-2/[H PF] 0 - 3 03/22 Specimen Type: URINE Comment: If Glucose = >500 and Ketones are positive, please alert the Physician. Ordering Provider: JULIA LION Report Released Date/Time: Mar 22, 2024 07:54 AM Reporting Lab: [facility]ENTERUSE[address] [address] Performing Lab: [facility] [place] [facility] [address] [facility] [address] [facility] [place] [facility] URINALYSI S CLEAN CATCH COLOR OF URINE Light- Yellow 03/22 Specimen Type: URINE Comment: If Glucose = >500 and Ketones are positive, please alert the Physician. Ordering Provider: JULIA LION Report Released Date/Time: Mar 22, 2024 07:54 AM Reporting Lab: [facility] [place] [facility] [address] [facility] [address] Performing Lab: [facility] [place] [address] [address] [facility] [place] [facility] URINALYSI S CLEAN CATCH APPEARANCE OF URINE Clear 03/22 Specimen Type: URINE Comment: If Glucose = >500 and Ketones are positive, please alert the Physician. Ordering Provider: JULIA LION Report Released Date/Time: Mar 22, 2024 07:54 AM Reporting Lab: [facility] [place] [address] [address] Performing Lab: [facility] [place] [facility] [address] [facility] [address] [facility] [place] [facility] URINALYSI S CLEAN CATCH GLUCOSE [MASS/VOLUM E] IN URINE Normal mg/dL 03/22 Specimen Type: URINE Comment: If Glucose = >500 and Ketones are positive, please alert the Physician. Ordering Provider: JULIA LION Report Released Date/Time: Mar 22, 2024 07:54 AM Reporting Lab: [facility] [place] [facility] [address] [facility] [address] Performing Lab: [facility] [place] [address] [address] [facility] [place] [facility] URINALYSI S CLEAN CATCH KETONES [MASS/VOLUM E] IN URINE BY TEST STRIP NEGATI VEmg/d L 03/22 Specimen Type: URINE Comment: If Glucose = >500 and Ketones are positive, please alert the Physician. Ordering Provider: JULIA LION Report Released Date/Time: Mar 22, 2024 07:54 AM Reporting Lab: [facility] [place] [place] [address] [address] Performing Lab: [facility] [place] [facility] [address] [facility] [address] [facility] [place] [facility] URINALYSI S CLEAN CATCH ERYTHROCYTE S [PRESENCE] IN URINE SEDIMENT BY LIGHT MICROSCOPY NEGATI VEmg/d L 03/22 Specimen Type: URINE Comment: If Glucose = >500 and Ketones are positive, please alert the Physician. Ordering Provider: JULIA LION Report Released Date/Time: Mar 22, 2024 07:54 AM Reporting Lab: [facility] [place] [address] [address] Performing Lab: [facility] [place] [place] [address] [address] [facility] [place] [facility] URINALYSI S CLEAN CATCH PROTEIN [MASS/VOLUM E] IN URINE BY TEST STRIP 20 mg/dL 03/22 Specimen Type: URINE Comment: If Glucose = >500 and Ketones are positive, please alert the Physician. Ordering Provider: JULIA LION Report Released Date/Time: Mar 22, 2024 07:54 AM Reporting Lab: [facility] [place] [address] [address] Performing Lab: [facility] [place] [place] [address] [address] [facility] [place] [facility] URINALYSI S CLEAN CATCH NITRITE [PRESENCE] IN URINE NEGATI VEmg/d L 03/22 Specimen Type: URINE Comment: If Glucose = >500 and Ketones are positive, please alert the Physician. Ordering Provider: JULIA LION Report Released Date/Time: Mar 22, 2024 07:54 AM Reporting Lab: [facility] [place] [address] [address] Performing Lab: [facility] [address] [address] [facility] URINALYSI S CLEAN CATCH BILIRUBIN.T OTAL [PRESENCE] IN URINE NEGATI VEmg/d L 03/22 Specimen Type: URINE Comment: If Glucose = >500 and Ketones are positive, please alert the Physician. Ordering Provider: JULIA LION Report Released Date/Time: Mar 22, 2024 07:54 AM Reporting Lab: [facility]RUSA [facility] PROVIDENCE HOSPITALTRN MASSUSE[address] [address] Performing Lab: [facility]ERN [facility]ENTERUSE[address] [address] [facility]ERN [facility]ENTERUSE [facility] URINALYSI S CLEAN CATCH SPECIFIC GRAVITY OF URINE BY REFRACTOMET RY 1.017 1.016 - 1.022 03/22 Specimen Type: URINE Comment: If Glucose = >500 and Ketones are positive, please alert the Physician. Ordering Provider: JULIA LION Report Released Date/Time: Mar 22, 2024 07:54 AM Reporting Lab: [facility]ALTHRUSA [facility] HOSPITALTRN [facility]ENTERUSE[address] [address] Performing Lab: [facility]ENTERUSE[address] [address] [facility]ERN [facility]ENTERUSE [facility] URINALYSI S CLEAN CATCH PH OF URINE BY TEST STRIP 7.0 5.0 - 9.0 03/22 Specimen Type: URINE Comment: If Glucose = >500 and Ketones are positive, please alert the Physician. Ordering Provider: JULIA LION Report Released Date/Time: Mar 22, 2024 07:54 AM Reporting Lab: [facility] MARYVALETRN [facility]ENTERUSE[address] [address] Performing Lab: [facility]ENTERUSE[address] [address] [facility]ERN [facility]ENTERUSE [facility] URINALYSI S CLEAN CATCH UROBILINOGE N [MASS/VOLUM E] IN URINE BY TEST STRIP Normal mg/dL <2.0 - 2.0 03/22 Specimen Type: URINE Comment: If Glucose = >500 and Ketones are positive, please alert the Physician. Ordering Provider: JULIA LION Report Released Date/Time: Mar 22, 2024 07:54 AM Reporting Lab: [facility] [place] [facility] [address] [facility] [address] Performing Lab: [facility]ENTERUSE[address] [address] [facility]RL TRN [facility]ENTERUSE [facility] URINALYSI S CLEAN CATCH LEUKOCYTE ESTERASE [PRESENCE] IN URINE BY TEST STRIP SMALL 03/22 Specimen Type: URINE Comment: If Glucose = >500 and Ketones are positive, please alert the Physician. Ordering Provider: JULIA LION Report Released Date/Time: Mar 22, 2024 07:54 AM Reporting Lab: [facility]ENTERUSE[address] [address] Performing Lab: [facility]RL TRN [facility]ENTERUSE[address] [address] [facility]RL TRN [facility]ENTERUSE [facility] BASIC METABOLIC PANEL (fasting) UREA NITROGEN [MASS/VOLUM E] IN SERUM OR PLASMA 15 mg/dL 7 - 25 01/27 Specimen Type: SERUM No comment entered. Ordering Provider: Rema LOPEZ Report Released Date/Time: Dec 10, 2023 01:06 PM Reporting Lab: [facility] TRN [facility]ENTERUSE[address] [address] Performing Lab: [facility]ENTERUSE[address] [address] [facility] TRN [facility]ENTERUSE [facility] BASIC METABOLIC PANEL (fasting) GLUCOSE [MASS/VOLUM E] IN SERUM OR PLASMA 86 mg/dL 65 - 100 01/27 Specimen Type: SERUM No comment entered. Ordering Provider: Rema LOPEZ Report Released Date/Time: Dec 10, 2023 01:06 PM Reporting Lab: [facility] TRN [facility]ENTERUSE[address] [address] Performing Lab: [facility] TRN [facility]ENTERUSE[address] [address] [facility] [place] [facility] BASIC METABOLIC PANEL (fasting) SODIUM [MOLES/VOLU ME] IN SERUM OR PLASMA 140 mmol/L 135 - 145 01/27 Specimen Type: SERUM No comment entered. Ordering Provider: Rema LOPEZ Report Released Date/Time: Dec 10, 2023 01:06 PM Reporting Lab: [facility] [place] [facility] [address] [facility] [address] Performing Lab: [facility] [place] [facility] [address] [facility] [address] [facility] [place] [facility] BASIC METABOLIC PANEL (fasting) POTASSIUM [MOLES/VOLU ME] IN SERUM OR PLASMA 4.3 mmol/L 3.5 - 5.0 01/27 Specimen Type: SERUM No comment entered. Ordering Provider: Rema LOPZE Report Released Date/Time: Dec 10, 2023 01:06 PM Reporting Lab: [facility] [place] [facility] [address] [facility] [address] Performing Lab: [facility] [place] [facility] [address] [facility] [address] [facility] [place] [facility] BASIC METABOLIC PANEL (fasting) CHLORIDE [MOLES/VOLU ME] IN SERUM OR PLASMA 104 mmol/L 100 - 110 01/27 Specimen Type: SERUM No comment entered. Ordering Provider: Rema LOPEZ Report Released Date/Time: Dec 10, 2023 01:06 PM Reporting Lab: [facility] [place] [facility] [address] [facility] [address] Performing Lab: [facility] [place] [facility] [address] [facility] [address] [facility] [place] [facility] BASIC METABOLIC PANEL (fasting) CARBON DIOXIDE, TOTAL [MOLES/VOLU ME] IN SERUM OR PLASMA 22 meq/L 20 - 30 01/27 Specimen Type: SERUM No comment entered. Ordering Provider: Rema LOPEZ Report Released Date/Time: Dec 10, 2023 01:06 PM Reporting Lab: [facility] [place] [facility] [address] [facility] [address] Performing Lab: [facility] [place] [facility] [address] [facility] [address] [facility] [place] [facility] BASIC METABOLIC PANEL (fasting) CREATININE [MASS/VOLUM E] IN SERUM OR PLASMA 0.92 mg/dL 0.50 - 1.40 01/27 Specimen Type: SERUM No comment entered. Ordering Provider: Rema LOPEZ Report Released Date/Time: Dec 10, 2023 01:06 PM Reporting Lab: [facility] [place] [facility] [address] [facility] [address] Performing Lab: [facility] [place] [place] [address] [address] [facility] [place] [facility] BASIC METABOLIC PANEL (fasting) GLOMERULAR FILTRATION RATE/1.73 SQ M.PREDICTED [VOLUME RATE/AREA] IN SERUM, PLASMA OR BLOOD BY CREATININE- BASED FORMULA (CKD-EPI 2020) 84 mL/min 60 01/27 Specimen Type: SERUM No comment entered. Ordering Provider: Rema LOPEZ Report Released Date/Time: Dec 10, 2023 01:06 PM Reporting Lab: [facility] [place] [address] [address] Performing Lab: [facility] [place] [place] [address] [address] [facility] [place] [facility] CREATININ E (eGFR 2020) CREATININE [MASS/VOLUM E] IN SERUM OR PLASMA 0.91 mg/dL 0.50 - 1.40 01/27 Specimen Type: SERUM No comment entered. Ordering Provider: FLORENTIN ANDRE Report Released Date/Time: Jan 12, 2024 09:43 AM Reporting Lab: [facility] [place] [facility] [address] [facility] [address] Performing Lab: [facility] [place] [address] [address] [facility] [place] [facility] CREATININ E (eGFR 2020) GLOMERULAR FILTRATION RATE/1.73 SQ M.PREDICTED [VOLUME RATE/AREA] IN SERUM, PLASMA OR BLOOD BY CREATININE- BASED FORMULA (CKD-EPI 2020) 85 mL/min 60 01/27 Specimen Type: SERUM No comment entered. Ordering Provider: FLORENTIN ANDRE Report Released Date/Time: Jan 12, 2024 09:43 AM Reporting Lab: [facility] [place] [facility] [address] [facility] [address] Performing Lab: [facility] [place] [facility] [address] [facility] [address] [facility] [place] [facility] CBC LEUKOCYTES [#/VOLUME] IN BLOOD BY AUTOMATED COUNT 7.04 10*3/u L 4.50 - 11.00 01/27 Specimen Type: BLOOD No comment entered. Ordering Provider: FLORENTIN ANDRE Report Released Date/Time: Jan 12, 2024 09:43 AM Reporting Lab: [facility] [place] [facility] [address] [facility] [address] Performing Lab: [facility] [place] [facility] [address] [facility] [address] [facility] [place] [facility] CBC ERYTHROCYTE S [#/VOLUME] IN BLOOD BY AUTOMATED COUNT 4.72 10*6/u L 4.23 - 5.66 01/27 Specimen Type: BLOOD No comment entered. Ordering Provider: FLORENTIN ANDRE Report Released Date/Time: Jan 12, 2024 09:43 AM Reporting Lab: [facility] [place] [address] [address] Performing Lab: [facility] [place] [facility] [address] [facility] [address] [facility] [place] [facility] CBC HEMOGLOBIN [MASS/VOLUM E] IN BLOOD 13.3 g/dL 12.8 - 17 01/27 Specimen Type: BLOOD No comment entered. Ordering Provider: FLORENTIN ANDRE Report Released Date/Time: Jan 12, 2024 09:43 AM Reporting Lab: [facility] [place] [address] [address] Performing Lab: [facility] [place] [facility] [address] [facility] [address] [facility] [place] [facility] CBC HEMATOCRIT [VOLUME FRACTION] OF BLOOD BY AUTOMATED COUNT 40.9 39.2 - 50.4 01/27 Specimen Type: BLOOD No comment entered. Ordering Provider: LFORENTIN ANDRE Report Released Date/Time: Jan 12, 2024 09:43 AM Reporting Lab: [facility] [place] [facility] [address] [facility] [address] Performing Lab: [facility] [place] [facility] [address] [facility] [address] [facility] [place] [facility] CBC MCV [ENTITIC VOLUME] BY AUTOMATED COUNT 86.7 fL 82 - 99 01/27 Specimen Type: BLOOD No comment entered. Ordering Provider: FLORENTIN ANDRE Report Released Date/Time: Jan 12, 2024 09:43 AM Reporting Lab: [facility] [place] [facility] [address] [facility] [address] Performing Lab: [facility] [facility] [address] [facility] [address] [facility] [place] [facility] CBC MCHC [MASS/VOLUM E] BY AUTOMATED COUNT 32.5 g/dL 30.8 - 35.1 01/27 Specimen Type: BLOOD No comment entered. Ordering Provider: FLORENTIN ANDRE Report Released Date/Time: Jan 12, 2024 09:43 AM Reporting Lab: [facility] [place] [facility] [address] [facility] [address] Performing Lab: [facility] [place] [facility] [address] [facility] [address] [facility] [place] [facility] CBC PLATELETS [#/VOLUME] IN BLOOD BY AUTOMATED COUNT 221 10*3/u L 140 - 360 01/27 Specimen Type: BLOOD No comment entered. Ordering Provider: FLORENTIN ANDRE Report Released Date/Time: Jan 12, 2024 09:43 AM Reporting Lab: [facility] [place] [facility] [address] [facility] [address] Performing Lab: [facility] [place] [facility] [address] [facility] [address] [facility] [place] [facility] CBC ERYTHROCYTE DISTRIBUTIO N WIDTH [RATIO] BY AUTOMATED COUNT 13.7 12.0 - 16.0 01/27 Specimen Type: BLOOD No comment entered. Ordering Provider: FLORENTIN ANDRE Report Released Date/Time: Jan 12, 2024 09:43 AM Reporting Lab: [facility] [place] [facility] [address] [facility] [address] Performing Lab: [facility] [place] [facility] [address] [facility] [address] [facility] [place] [facility] CBC MCH [ENTITIC MASS] BY AUTOMATED COUNT 28.2 pg 26.2 - 32.6 01/27 Specimen Type: BLOOD No comment entered. Ordering Provider: FLORENTIN ANDRE Report Released Date/Time: Jan 12, 2024 09:43 AM Reporting Lab: [facility] [place] [facility] [address] [address] Performing Lab: [facility] [facility] [address] [address] [facility] VITAMIN D (25-OH) 25-HYDROXYV ITAMIN D3 [MASS/VOLUM E] IN SERUM OR PLASMA 26 ng/mL 20 - 50 11/05 Specimen Type: SERUM No comment entered. Ordering Provider: Rema LOPEZ Report Released Date/Time: Jul 15, 2023 10:53 AM Reporting Lab: [facility] [place] [address] [address] Performing Lab: [facility] [address] [address] [facility] Vital Signs Combined list of inpatient and outpatient Vital Signs from Department of Defense and Veterans Affairs, ranging from 12 months to all on record, depending upon the facility. Vital Sign Value Date Comments Source SYSTOLIC BLOOD PRESSURE 131 06/04/19 25 10:05:12 [facility] DIASTOLIC BLOOD PRESSURE 65 025 10:05:12 [facility] PULSE 67 06/03/2024 10:05:12 [facility] SYSTOLIC BLOOD PRESSURE 140 05/27/19 14:55:00 [facility] DIASTOLIC BLOOD PRESSURE 70 025 14:55:00 [facility] PULSE OXIMETRY 98 05/26/2024 14:55:00 [facility] PAIN 3 05/26/2024 14:55:00 [facility] PULSE 74 05/26/2024 14:55:00 [facility] RESPIRATION 20 05/26/2024 14:55:00 [facility] SYSTOLIC BLOOD PRESSURE 92 05/19/19 07:58:05 [facility] DIASTOLIC BLOOD PRESSURE 54 025 07:58:05 [facility] PULSE OXIMETRY 97 05/18/2024 07:58:05 [facility] WEIGHT 211 05/18/2024 07:58:05 [facility] BMI 31 kg/m2 05/18/2024 07:58:05 [facility] PAIN 0 05/18/2024 07:58:05 [facility] HEIGHT 69.5 05/18/2024 07:58:05 [facility] TEMPERATURE 98.2 05/18/2024 07:58:05 [facility] PULSE 74 05/18/2024 07:58:05 [facility] RESPIRATION 16 05/18/2024 07:58:05 [facility] SYSTOLIC BLOOD PRESSURE 110 03/22/19 08:27:03 [facility] DIASTOLIC BLOOD PRESSURE 68 025 08:27:03 [facility] PULSE OXIMETRY 98 03/22/2024 08:27:03 [facility] TEMPERATURE 98.6 03/22/2024 08:27:03 [facility] PULSE 91 03/22/2024 08:27:03 [facility] RESPIRATION 18 03/22/2024 08:27:03 [facility] SYSTOLIC BLOOD PRESSURE 109 01/08/20 24 09:35:02 [facility] DIASTOLIC BLOOD PRESSURE 63 024 09:35:02 [facility] PULSE 73 01/08/2024 09:35:02 [facility] Encounters Combined list of: 1) Encounters from Department of Veterans Affairs facilities going backup to the last 18 months, not all VA inpatient encounters are included; 2) Encounters from the Department of Defense facilities going backup to 280 months. Location Location Details Encounter Type Encounter Number Reason For Visit Attending Provider ADM Date DC Date Status Disposition Source [facility] OFFICE O/P EST LOW 20-29 MIN [id number] Diagnos is: ICD-10- CM R94.5 Abnorma l results of liver functio n DILAN Taylor 12/17 [facility] EXERCISE CLASS [id number] Diagnos is: ICD-10- CM Z72.3 Lack of physica l exercis Carlos Mcgregor 12/18 [facility] Outpatient Encounter [id number] 12/20 [facility] THERAPEUTI C EXERCISES [id number] Diagnos is: ICD-10- CM Z47.89 Encount er for other orthope dic afterca re ISAEL GUZMAN 12/20 [facility] THERAPEUTI C EXERCISES [id number] Diagnos is: ICD-10- CM 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 ISAEL GUZMAN 12/24 [facility] EXERCISE CLASS [id number] Diagnos is: ICD-10- CM Z72.3 Lack of physica l exercis e MANDO DANG 12/25 [facility] THERAPEUTI C EXERCISES [id number] Diagnos is: ICD-10- CM M75.00 Adhesiv e capsuli tis of unspeci fied shoulde AMY Leary E 12/26 [facility] EXERCISE CLASS [id number] Diagnos is: ICD-10- CM Z72.3 Lack of physica l exercis e WYATT SHIRLEY 12/27 [facility] THERAPEUTI C EXERCISES [id number] Diagnos is: ICD-10- CM Z47.89 Encount er for other orthope dic afterca re ISAEL GUZMAN 12/27 [facility] EXERCISE CLASS [id number] Diagnos is: ICD-10- CM Z72.3 Lack of physica l exercis e AG FERNANDEZ 12/30 [facility] THERAPEUTI C EXERCISES [id number] Diagnos is: ICD-10- CM M75.00 Adhesiv e capsuli tis of unspeci fied shouldAMY Munoz LIE E 12/31 [facility] OFFICE O/P NEW LOW 30-44 MIN [id number] Diagnos is: ICD-10- CM R94.5 Abnorma l results of liver functio n studies DELORIS ALTAMIRANO 12/31 [place] [facility] [facility] FAC[facility] FEE [id number] Diagnos is: ICD-10- CM R94.5 Abnorma l results of liver functio n studies DELORIS ALTAMIRANO 12/31 [facility] THERAPEUTI C EXERCISES [id number] Diagnos is: ICD-10- CM M75.00 Adhesiv e capsuli tis of unspeci fied AMY Merrill E 01/28 [facility] SELF CARE MNGMENT TRAINING [id number] Diagnos is: ICD-10- CM Z47.89 Encount er for other orthope dic afterca re AG FERNANDEZ 01/28 [facility] EXERCISE CLASS [id number] Diagnos is: ICD-10- CM Z72.3 Lack of physica l exercis Carlos Mcgregor 01/29 [facility] OFF/OP EST MAY X REQ PHY/QHP [id number] Diagnos is: ICD-10- CM Z23 Encount er for immuniz ation Edward ZHOU M 01/29 [facility] Out[facility] Encounter [id number] 01/30 [facility] Encounter [id number] 01/30 [facility] EXERCISE CLASS [id number] Diagnos is: ICD-10- CM Z72.3 Lack of physica l exercis e AG FERNANDEZ M 01/31 [facility] EXERCISE CLASS [id number] Diagnos is: ICD-10- CM Z72.3 Lack of physica l exercis e AG FERNANDEZ M 02/03 [facility] SELF-MGMT EDUC & TRAIN 1 [place] [id number] Diagnos is: ICD-10- CM G47.33 Obstruc tive sleep apnea (adult) (pediat uma) JESENIAPALMER Munguia UMA 02/03 [facility] En[facility] [id number] Edward ZHOU M 02/04 [facility] THERAPEUTI C EXERCISES [id number] Diagnos is: ICD-10- CM M75.00 Adhesiv e capsuli tis of unspeci fied shoulde r AARON,AMY LIE E 02/05 [facility] EXERCISE CLASS [id number] Diagnos is: ICD-10- CM Z72.3 Lack of physica l exercis e Carlos PARIS 02/05 [facility] EXERCISE CLASS [id number] Diagnos is: ICD-10- CM Z72.3 Lack of physica l exercis e MANDO DANG 02/07 [facility] EXERCISE CLASS [id number] Diagnos is: ICD-10- CM Z72.3 Lack of physica l exercis e Carlos PARISIN 02/12 [facility] SLEEP STUDY UNATT&RESP EFFT [id number] Diagnos is: ICD-10- CM G47.33 Obstruc tive sleep apnea (adult) ([facility] uma) GUS BAHIMANSHU UMA 02/12 [facility] Outpatient Encounter [id number] 02/13 [facility] SLEEP STUDY UNATT&RESP EFFT [id number] Diagnos is: ICD-10- CM G47.33 Obstruc tive sleep apnea (adult) ([facility] uma) ADELA BOUDREAUX 02/13 [place] [facility] EXERCISE CLASS [id number] Diagnos is: ICD-10- CM Z72.3 Lack of physica l exercis e AG FERNANDEZ 02/14 [facility] EXERCISE CLASS [id number] Diagnos is: ICD-10- CM Z72.3 Lack of physica l exercis e AG FERNANDEZ M 02/17 [facility] OFFICE/[place] [id number] Diagnos is: ICD-10- CM G47.33 Obstruc tive sleep apnea (adult) (pediat uma) KELLY HODGES Kia P 02/18 [facility] EXERCISE CLASS [id number] Diagnos is: ICD-10- CM Z72.3 Lack of physica l exercis e Carlos PARIS 02/19 [facility] Outpatient Encounter [id number] DILAN LOPEZ 02/20 [facility] THERAPEUTI C EXERCISES [id number] Diagnos is: ICD-10- CM M75.00 Adhesiv e capsuli tis of unspeci fied AMY Merrill 02/21 [facility] EXERCISE CLASS [id number] Diagnos is: ICD-10- CM Z72.3 Lack of physica l exercis e WYATT SHIRLEY 02/21 [facility] EXERCISE CLASS [id number] Diagnos is: ICD-10- CM Z72.3 Lack of physica l exercis e AG FERNANDEZ M 02/24 [facility] EXERCISE CLASS [id number] Diagnos is: ICD-10- CM Z72.3 Lack of physica l exercis e WYATT SHIRLEY 02/26 [facility] THERAPEUTI C EXERCISES [id number] Diagnos is: ICD-10- CM M75.00 Adhesiv e capsuli tis of unspeci fied shoulde r FALLONSHELLI,AMY LIE E 02/26 [facility] Outpatient Encounter [id number] 02/26 [facility] EXERCISE CLASS [id number] Diagnos is: ICD-10- CM Z72.3 Lack of physica l exercis e WYATT SHIRLEY 02/28 [facility] [place] POS AIRWAY PRESSURE CPAP [id number] Diagnos is: ICD-10- CM G47.30 Sleep apnea, unspeci fied LG [place] A 02/28 [place] [facility] EXERCISE CLASS [id number] Diagnos is: ICD-10- CM Z72.3 Lack of physica l exercis e AG FERNANDEZ 03/03 [facility] Outpatient Encounter [id number] DILAN LOPEZ 03/04 [facility] EXERCISE CLASS [id number] Diagnos is: ICD-10- CM Z72.3 Lack of physica l exercis e Carlos PARIS 03/05 [facility] COLLJ & INTERPJ DATA EA 30 D [id number] Diagnos is: ICD-10- CM G47.30 Sleep apnea, unspeci fied ST KELLY JALLOH E P 03/05 [facility] THERAPEUTI C EXERCISES [id number] Diagnos is: ICD-10- CM M75.00 Adhesiv e capsuli tis of unspeci fied shoulde r AARONAMY LIE E 03/06 [facility] EXERCISE CLASS [id number] Diagnos is: ICD-10- CM Z72.3 Lack of physica l Carlos Larsen 03/07 [facility] OFFICE O/P EST LOW 20-29 MIN [id number] Diagnos is: ICD-10- CM 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 ARMAND LIONNAH 03/14 [facility] OFF/OP EST MAY X REQ PHY/QHP [id number] Diagnos is: ICD-10- CM 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 Edward ZHOU M 03/14 [facility] Outpatient Encounter [id number] Edward ZHOU M 03/14 [facility] THERAPEUTI C EXERCISES [id number] Diagnos is: ICD-10- CM M75.00 Adhesiv e capsuli tis of unspeci fied shoulde samatnha WALKER,AMY LIE E 03/21 [facility] Outpatient Encounter [id number] 03/21 [facility] EXERCISE CLASS [id number] Diagnos is: ICD-10- CM Z72.3 Lack of physica l exercis e AG FERNANDEZ M 03/21 [facility] COLLJ & INTERPJ DATA EA 30 D [id number] Diagnos is: ICD-10- CM G47.30 Sleep apnea, unspeci fied LG [place] 03/24 [facility] [place] [facility] EXERCISE CLASS [id number] Diagnos is: ICD-10- CM Z72.3 Lack of physica l exercis Carlos Mcgregor 03/26 [facility] THERAPEUTI C EXERCISES [id number] Diagnos is: ICD-10- CM M75.00 Adhesiv e capsuli tis of unspeci fied AMY Merrill 03/27 [facility] Outpatient Encounter [id number] DILAN LOPEZ 03/27 [facility] EXERCISE CLASS [id number] Diagnos is: ICD-10- CM Z72.3 Lack of physica l exercis e AG FERNANDEZ M 03/28 [facility] EXERCISE CLASS [id number] Diagnos is: ICD-10- CM Z72.3 Lack of physica l exercis Carlos Mcgregor 04/02 [facility] THERAPEUTI C EXERCISES [id number] Diagnos is: ICD-10- CM M75.00 Adhesiv e capsuli tis of unspeci fied shoulde samantha WALKERAMY LIE E 04/02 [facility] EXERCISE CLASS [id number] Diagnos is: ICD-10- CM Z72.3 Lack of physica l exercis e AG FERNANDEZ M 04/04 [facility] EXERCISE CLASS [id number] Diagnos is: ICD-10- CM Z72.3 Lack of physica l exercis e Carlos PARIS CR 04/07 [facility] THERAPEUTI C EXERCISES [id number] Diagnos is: ICD-10- CM M75.00 Adhesiv e capsuli tis of unspeci fied shouldkia WALKERAMY LIE E 04/09 [facility] EXERCISE CLASS [id number] Diagnos is: ICD-10- CM Z72.3 Lack of physica l exercis e MANDO DANG 04/11 [facility] EXERCISE CLASS [id number] Diagnos is: ICD-10- CM Z72.3 Lack of physica l exercis e AG FERNANDEZ M 04/14 [facility] EXERCISE CLASS [id number] Diagnos is: ICD-10- CM Z72.3 Lack of physica l exercis e Carlos PARIS 04/16 [facility] THERAPEUTI C EXERCISES [id number] Diagnos is: ICD-10- CM M75.00 Adhesiv e capsuli tis of unspeci fied shoulde r AARON,AMY LIE E 04/16 [facility] Outpatient Encounter [id number] 04/17 [facility] EXERCISE CLASS [id number] Diagnos is: ICD-10- CM Z72.3 Lack of physica l exercis e AG FERNANDEZ 04/18 [facility] UNLISTED PHYSCL MED/[place]AB PX [id number] Diagnos is: ICD-10- CM Z72.3 Lack of physica l exercis e AG FERNANDEZ 04/18 [facility] EXERCISE CLASS [id number] Diagnos is: ICD-10- CM Z72.3 Lack of physica l exercis e AG FERNANDEZ 04/21 [facility] Out[facility] Encounter [id number] 04/21 [facility] NASAL APPLICATIO N DEVICE [id number] Diagnos is: ICD-10- CM G47.30 Sleep apnea, unspeci fied LG [place] 04/21 [facility] EXERCISE CLASS [id number] Diagnos is: ICD-10- CM Z72.3 Lack of physica l exercis e WYATT SHIRLEY 04/23 [facility] EVA MDLTY 1+ULTRASOU ND EA 15 [id number] Diagnos is: ICD-10- CM M75.00 Adhesiv e capsuli tis of unspeci fied shoulde AMY Leary E 04/23 [facility] Outpatient Encounter [id number] DILAN LOPEZ 04/24 [facility] EXERCISE CLASS [id number] Diagnos is: ICD-10- CM Z72.3 Lack of physica l exercis e WYATT SHIRLEY 04/25 [facility] EXERCISE CLASS [id number] Diagnos is: ICD-10- CM Z72.3 Lack of physica l exercis e AG FERNANDEZ 04/28 [facility] Out[facility] Encounter [id number] Edward ZHOU 04/28 [facility] EXERCISE CLASS [id number] Diagnos is: ICD-10- CM Z72.3 Lack of physica l exercis e Carlos PARIS 04/30 [facility] THERAPEUTI C EXERCISES [id number] Diagnos is: ICD-10- CM M75.00 Adhesiv e capsuli tis of unspeci fied shoulde samantha WALKER,AMY LIE E 04/30 [facility] EXERCISE CLASS [id number] Diagnos is: ICD-10- CM Z72.3 Lack of physica l exercis e AG FERNANDEZ M 05/02 [facility] EXERCISE CLASS [id number] Diagnos is: ICD-10- CM Z72.3 Lack of physica l exercis Carlos Mcgregor CR 05/07 [facility] THERAPEUTI C EXERCISES [id number] Diagnos is: ICD-10- CM M75.00 Adhesiv e capsuli tis of unspeci fied shouldkia WALKERAMY LIE E 05/07 [facility] EXERCISE CLASS [id number] Diagnos is: ICD-10- CM Z72.3 Lack of physica l exercis Carlos Mcgregor 05/09 [facility] HEARING AID REPAIR/MOD IFYING [id number] Diagnos is: ICD-10- CM Z46.1 Encount er for fitting and adjustm ent of hearing aid SENIOR,ZHOU OLE L 05/12 [facility] EXERCISE CLASS [id number] Diagnos is: ICD-10- CM Z72.3 Lack of physica l exercis e AG FERNANDEZ M 05/12 [facility] EXERCISE CLASS [id number] Diagnos is: ICD-10- CM Z72.3 Lack of physica l exercis e WYATT SHIRLEY 05/14 [facility] EXERCISE CLASS [id number] Diagnos is: ICD-10- CM Z72.3 Lack of physica l exercis e MANDO DANG 05/15 [facility] EXERCISE CLASS [id number] Diagnos is: ICD-10- CM Z72.3 Lack of physica l exercis e AG FERNANDEZ 05/18 [facility] THERAPEUTI C EXERCISES [id number] Diagnos is: ICD-10- CM M75.20 Bicipit al tendini tis, unspeci fied shoulde r MACHSHELLI,AMY LIE E 05/18 [facility] EXERCISE CLASS [id number] Diagnos is: ICD-10- CM Z72.3 Lack of physica l exercis e Carlos PARIS 05/20 [facility] Outpatient Encounter [id number] 05/20 [facility] EXERCISE CLASS [id number] Diagnos is: ICD-10- CM Z72.3 Lack of physica l exercis e AG FERNANDEZ 05/22 [facility] EXERCISE CLASS [id number] Diagnos is: ICD-10- CM Z72.3 Lack of physica l exercis e YESENIAAG DOCKERY Carlos 05/25 [facility] EXERCISE CLASS [id number] Diagnos is: ICD-10- CM Z72.3 Lack of physica l exercis e MANDO DANG 05/27 [facility] EXERCISE CLASS [id number] Diagnos is: ICD-10- CM Z72.3 Lack of physica l exercis e YESENIAAG DOCKERY TIN M 06/01 [facility] EXERCISE CLASS [id number] Diagnos is: ICD-10- CM Z72.3 Lack of physica l exercis e Carlos PARIS 06/03 [facility] EXERCISE CLASS [id number] Diagnos is: ICD-10- CM Z72.3 Lack of physica l exercis e YESENIAAG DOCKERY TIN M 06/05 [facility] EXERCISE CLASS [id number] Diagnos is: ICD-10- CM Z72.3 Lack of physica l exercis e YESENIAAG DOCKERY TIN M 06/08 [facility] EXERCISE CLASS [id number] Diagnos is: ICD-10- CM Z72.3 Lack of physica l exercis e Carlos PARIS 06/10 [facility] EXERCISE CLASS [id number] Diagnos is: ICD-10- CM Z72.3 Lack of physica l exercis e YESENIAAG DOCKERY M 06/12 [facility] EXERCISE CLASS [id number] Diagnos is: ICD-10- CM Z72.3 Lack of physica l exercis e YESENIAAG DOCKERY M 06/15 [facility] [facility] EXERCISE CLASS [id number] Diagnos is: ICD-10- CM Z72.3 Lack of physica l exercis e Carlos PARIS CR 06/17 [facility] EXERCISE CLASS [id number] Diagnos is: ICD-10- CM Z72.3 Lack of physica l exercis e YESENIAAG DOCKERY CARINAníbal M 06/19 [facility] RPR&REFITG SPECT XCP APHAKIA [id number] [id number] Diagnos is: ICD-10- CM Z46.0 Encount er for fit/adj st of spectac les and contact lenses EDWARD,A PHILIPPE J 06/19 [facility] EXERCISE CLASS [id number] Diagnos is: ICD-10- CM Z72.3 Lack of physica l exercis e Carlos PARIS CR 06/22 [facility] EXERCISE CLASS [id number] Diagnos is: ICD-10- CM Z72.3 Lack of physica l exercis e Carlos PARIS CR 06/24 [facility] EXERCISE CLASS [id number] Diagnos is: ICD-10- CM Z72.3 Lack of physica l exercis e AG FERNANDEZ 06/26 [facility] Encounter [id number] 06/29 [facility] Out[facility] Encounter [id number] 06/29 [facility] COLLJ & INTERPJ DATA EA 30 D [id number] [id number] Diagnos is: ICD-10- CM G47.30 Sleep apnea, unspeci fied ST AMANT,KELLY E P 07/01 [facility] Encounter [id number] 07/07 [facility] Out[facility] Encounter [id number] 07/07 [facility] EXERCISE CLASS [id number] Diagnos is: ICD-10- CM Z72.3 Lack of physica l exercis e AG FERNANDEZ 07/10 [facility] TUBING WITH HEATING ELEMENT [id number] [id number] Diagnos is: ICD-10- CM G47.30 Sleep apnea, unspeci fied ST AMANT,KELLY E P 07/13 [facility] Out[facility] Encounter [id number] DILAN LOPEZ 07/13 [facility] OFFICE O/P EST LOW 20 MIN [id number] [id number] Diagnos is: ICD-10- CM L03.90 Celluli tis, unspeci fied DAVIDBRANDTDILAN NAM 07/14 [facility] EXERCISE CLASS [id number] Diagnos is: ICD-10- CM Z72.3 Lack of physica l exercis Carlos Mcgregor 07/15 [facility] OFF/OP EST MAY X REQ PHY/QHP [id number] [id number] Diagnos is: ICD-10- CM L03.90 Celluli tis, unspeci fied Edward ZHOU 07/16 [facility] OFFICE O/P NEW [place] 60 MIN [id number] [id number] Dahiana ANNA 07/16 [facility] EXERCISE CLASS [id number] Diagnos is: ICD-10- CM Z72.3 Lack of physica l exercis e AG FERNANDEZ 07/17 [facility] EXERCISE CLASS [id number] [id number] Diagnos is: ICD-10- CM Z72.3 Lack of physica l exercis AG Sandy 07/20 [facility] EXERCISE CLASS [id number] [id number] Diagnos is: ICD-10- CM Z72.3 Lack of physica l exercis Carlos Mcgregor 07/22 [facility] EXERCISE CLASS [id number] [id number] Diagnos is: ICD-10- CM Z72.3 Lack of physica l exercis e AG FERNANDEZ M 07/24 [facility] EXERCISE CLASS [id number] [id number] Diagnos is: ICD-10- CM Z72.3 Lack of physica l exercis e AG FERNANDEZ M 07/27 [facility] OFF/OP EST MAY X REQ PHY/QHP [id number] [id number] Diagnos is: ICD-10- CM Z04.9 Encount er for examina tion and observa tion for unsp reason Edward ZHOU 07/28 [facility] EXERCISE CLASS [id number] [id number] Diagnos is: ICD-10- CM Z72.3 Lack of physica l exercis e Carlos PARIS 07/29 [facility] EXERCISE CLASS [id number] [id number] Diagnos is: ICD-10- CM Z72.3 Lack of physica l exercis e WYATT SHIRLEY 07/31 [facility] Out[facility] Encounter [id number] 08/01 [facility] INTRM OPH EXAM EST PATIENT [id number] Diagnos is: ICD-10- CM H40.113 1 Primary open-an gle glaucom a, bilater al, mild stage MUIR,LACE Y J 08/04 [facility] EXTENDED VISUAL FIELD XM [id number] [id number] Diagnos is: ICD-10- CM H40.113 1 Primary open-an gle glaucom a, bilater al, mild stage MUIR,LACE Y J 08/04 [facility] CMPTR OPHTH IMG OPTIC NERVE [id number] [id number] Diagnos is: ICD-10- CM H40.113 1 Primary open-an gle glaucom a, bilater al, mild stage MUIR,LACE Y J 08/04 [facility] FIT SPECTACLES MULTIFOCAL 84782-9.63 [id number] Diagnos is: ICD-10- CM Z46.0 Encount er for fit/adj st of spectac les and contact lenses MUIR,LACE Y J 08/04 [facility] EXERCISE CLASS [id number] [id number] Diagnos is: ICD-10- CM Z72.3 Lack of physica l exercis Carlos Mcgregor 08/05 [facility] OFFICE O/P EST HI 40 MIN [id number] [id number] Diagnos is: ICD-10- CM M75.102 Unsp rotatr- cuff tear/ru ptr of left shoulde r, not trauma LOPEZ,LISA BRITTNEY THI 08/11 [facility] Outpatient Encounter [id number] 08/11 [facility] EXERCISE CLASS [id number] [id number] Diagnos is: ICD-10- CM Z72.3 Lack of physica l exercis e RAINA,M CR 08/12 [facility] EXERCISE CLASS [id number] [id number] Diagnos is: ICD-10- CM Z72.3 Lack of physica l exercis WYATT Velázquez 08/14 [facility] Outpatient Encounter [id number] Carlos OLIVIER 08/17 [facility] EXERCISE CLASS [id number] [id number] Diagnos is: ICD-10- CM Z72.3 Lack of physica l exercis Carlos Mcgregor 08/17 [facility] EXERCISE CLASS [id number] [id number] Diagnos is: ICD-10- CM Z72.3 Lack of physica l exercis Carlos Mcgregor 08/19 [facility] RPR&REFITG SPECT XCP APHAKIA [id number] [id number] Diagnos is: ICD-10- CM Z46.0 Encount er for fit/adj st of spectac les and contact lenses RADHA ARIAS 08/19 [facility] EXERCISE CLASS [id number] [id number] Diagnos is: ICD-10- CM Z72.3 Lack of physica l exercis WYATT Velázquez 08/21 [facility] RPR&REFITG SPECT XCP APHAKIA 18742-7.63 [id number] Diagnos is: ICD-10- CM Z46.0 Encount er for fit/adj st of spectac les and contact lenses Noreen LEON 08/21 [facility] EXERCISE CLASS [id number] [id number] Diagnos is: ICD-10- CM Z72.3 Lack of physica l exercis AG Sandy 08/24 [facility] Out[facility] Encounter [id number] Edward ZHOU 08/26 [facility] EXERCISE CLASS [id number] [id number] Diagnos is: ICD-10- CM Z72.3 Lack of physica l exercis Carlos Mcgregor 08/26 [facility] EXERCISE CLASS [id number] [id number] Diagnos is: ICD-10- CM Z72.3 Lack of physica l exercis e AG FERNANDEZ 08/28 [facility] EXERCISE CLASS [id number] [id number] Diagnos is: ICD-10- CM Z72.3 Lack of physica l exercis AG Sandy 08/31 [facility] EXERCISE CLASS [id number] [id number] Diagnos is: ICD-10- CM Z72.3 Lack of physica l exercis WYATT Velázquez 09/04 [facility] EXERCISE CLASS [id number] [id number] Diagnos is: ICD-10- CM Z72.3 Lack of physica l exercis Carlos Mcgregor 09/07 [facility] EXERCISE CLASS [id number] [id number] Diagnos is: ICD-10- CM Z72.3 Lack of physica l exercis kia RAINACarlos CR 09/09 [facility] EXERCISE CLASS [id number] [id number] Diagnos is: ICD-10- CM Z72.3 Lack of physica l exercis e WYATT SHIRLEY 09/11 [facility] THERAPEUTI C EXERCISES [id number] [id number] Diagnos is: ICD-10- CM M48.07 Spinal stenosi s, lumbosa cral region WYATT SHIRLEY 09/14 [facility] EXERCISE CLASS [id number] [id number] Diagnos is: ICD-10- CM Z72.3 Lack of physica l exercis kia RAINACarlos CR 09/28 [facility] EXERCISE CLASS [id number] [id number] Diagnos is: ICD-10- CM Z72.3 Lack of physica l exercis kia RAINACarlos CR 09/30 [facility] EXERCISE CLASS [id number] [id number] Diagnos is: ICD-10- CM Z72.3 Lack of physica l exercis kia Carlos PARIS CR 10/02 [facility] THERAPEUTI C EXERCISES [id number] [id number] Diagnos is: ICD-10- CM M48.07 Spinal stenosi s, lumbosa cral region WYATT SHIRLEY 10/05 [facility] EXERCISE CLASS [id number] 1. Diagnos is: ICD-10- CM Z72.3 Lack of physica l exercAG James 10/05 [facility] EXERCISE CLASS [id number] [id number] Diagnos is: ICD-10- CM Z72.3 Lack of physica l exercis e Carlos PARIS 10/07 [facility] HEARING AID REPAIR/MOD IFYING 16084-4.63 1. Diagnos is: ICD-10- CM Z46.1 Encount er for fitting and adjustm ent of hearing aid ALEXIA OMER 10/07 [facility] THERAPEUTI C EXERCISES [id number] [id number] Diagnos is: ICD-10- CM M48.07 Spinal stenosi s, lumbosa cral region WYATT SHIRLEY 10/12 [facility] EXERCISE CLASS [id number] [id number] Diagnos is: ICD-10- CM Z72.3 Lack of physica l exercis e AG FERNANDEZ 10/12 [facility] EXERCISE CLASS [id number] [id number] Diagnos is: ICD-10- CM Z72.3 Lack of physica l exercis e Carlos PARIS 10/14 [facility] EXERCISE CLASS [id number] [id number] Diagnos is: ICD-10- CM Z72.3 Lack of physica l exercis e AG FERNANDEZ 10/16 [facility] EXERCISE CLASS [id number] [id number] Diagnos is: ICD-10- CM Z72.3 Lack of physica l exercis Carlos Mcgregor 11/06 [facility] MANUAL THERAPY 1/ REGIONS [id number] [id number] Diagnos is: ICD-10- CM M48.07 Spinal stenosi s, lumbosa cral region WYATT SHIRLEY 11/09 [facility] OFFICE O/P EST MOD 30 MIN [id number] [id number] Diagnos is: ICD-10- CM M54.16 Radicul opathy, lumbar region Dahiana ANNA 11/09 [facility] EXERCISE CLASS [id number] [id number] Diagnos is: ICD-10- CM Z72.3 Lack of physica l exercis AG Sandy 11/09 [facility] OFFICE O/P EST LOW 20 MIN [id number] [id number] Diagnos is: ICD-10- CM I48.91 Unspeci fied atrial fibrill ation MARILUDILAN WALTERS Ravi 11/10 [facility] EXERCISE CLASS [id number] [id number] Diagnos is: ICD-10- CM Z72.3 Lack of physica l exercis Carlos Mcgregor 11/11 [facility] EXERCISE CLASS [id number] [id number] Diagnos is: ICD-10- CM Z72.3 Lack of physica l exercis e AG FERNANDEZ 11/13 [facility] EXERCISE CLASS [id number] [id number] Diagnos is: ICD-10- CM Z72.3 Lack of physica l exercis e Carlos PARIS 11/18 [facility] Outpatient Encounter [id number] [id number]/19 [facility] EXERCISE CLASS [id number] 1. Diagnos is: ICD-10- CM Z72.3 Lack of physica l exercis e MANDO DANG 11/23 [facility] EXERCISE CLASS [id number] [id number] Diagnos is: ICD-10- CM Z72.3 Lack of physica l exercis e AG FERNANDEZ 11/25 [facility] EXERCISE CLASS [id number] [id number] Diagnos is: ICD-10- CM Z72.3 Lack of physica l exercis e AG FERNANDEZ M 11/27 [facility] EXERCISE CLASS [id number] [id number] Diagnos is: ICD-10- CM Z72.3 Lack of physica l exercis e AG FERNANDEZ 11/30 [facility] EXERCISE CLASS [id number] [id number] Diagnos is: ICD-10- CM Z72.3 Lack of physica l exercis e Carlos PARIS 12/02 [facility] MANUAL THERAPY 1/ [place] [id number] [id number] Diagnos is: ICD-10- CM M48.07 Spinal stenosi s, lumbosa cral region WYATT SHIRLEY 12/03 [facility] EXERCISE CLASS [id number] [id number] Diagnos is: ICD-10- CM Z72.3 Lack of physica l exercis e AG FERNANDEZ M 12/04 [facility] EXERCISE CLASS [id number] 1. Diagnos is: ICD-10- CM Z72.3 Lack of physica l exercis e AG FERNANDEZ M 12/07 [facility] OFFICE O/P EST HI 40 MIN 78717-4.63 1. Diagnos is: ICD-10- CM M54.16 Radicul opathy, lumbar region LISA LOPEZ THI 12/09 [facility] Out[facility] Encounter [id number] 1.12/09 [facility] Encounter [id number] 1.12/09 [facility] Out[facility] Encounter [id number] 1.12/10 [facility] EXERCISE CLASS [id number] [id number] Diagnos is: ICD-10- CM Z72.3 Lack of physica l exercis e AG FERNANDEZ 12/11 [facility] EXERCISE CLASS [id number] [id number] Diagnos is: ICD-10- CM Z72.3 Lack of physica l exercis e AG FERNANDEZ 12/14 [facility] EXERCISE CLASS [id number] 1. Diagnos is: ICD-10- CM Z72.3 Lack of physica l exercis e Carlos PARIS 12/16 [facility] Out[facility] Encounter [id number] [id number] 12/17 [facility] OFF/OP EST JULY X REQ PHY/QHP [id number] [id number] Diagnos is: ICD-10- CM I10 Essenti al (primar y) hyperte nsion D[facility]AN SHIELDS 12/17 [facility] Out[facility] Encounter [id number] [id number] 12/18 [facility] EXERCISE CLASS [id number] [id number] Diagnos is: ICD-10- CM Z72.3 Lack of physica l exercis e WYATT SHIRLEY 12/18 [facility] SELF CARE MNGMENT TRAINING [id number] [id number] Diagnos is: ICD-10- CM M48.07 Spinal stenosi s, lumbosa cral region WYATT SHIRLEY 12/21 [facility] Out[facility] Encounter [id number] [id number] 12/24 [facility] EXERCISE CLASS [id number] [id number] Diagnos is: ICD-10- CM Z72.3 Lack of physica l exercis e Carlos PARIS 01/06 [facility] MANUAL THERAPY 1/ [place] [id number] [id number] Diagnos is: ICD-10- CM M48.07 Spinal stenosi s, lumbosa cral region WYATT SHIRLEY pEi 01/07 [facility] OFF/OP EST JULY X REQ PHY/QHP [id number] [id number] Diagnos is: ICD-10- CM I11.9 Hyperte nsive heart disease without heart failure Edward ZHOU 01/07 [facility] Out[facility] Encounter [id number] [id number]/08 [facility] EXERCISE CLASS [id number] [id number] Diagnos is: ICD-10- CM Z72.3 Lack of physica l exercis e AG FERNANDEZ M 01/08 [facility] EXERCISE CLASS [id number] [id number] Diagnos is: ICD-10- CM Z72.3 Lack of physica l exercis e AG FERNANDEZ M 01/11 [facility] QNHP OL DIG ASSMT&MGMT - 89316-5.63 1. Diagnos is: ICD-10- CM Z04.89 Encount er for examina tion and observa tion for oth reasons RJ ANDRE 01/11 [facility] EXERCISE CLASS [id number] [id number] Diagnos is: ICD-10- CM Z72.3 Lack of physica l exercis Carlos Mcgregor 01/13 [facility] EXERCISE CLASS [id number] [id number] Diagnos is: ICD-10- CM Z72.3 Lack of physica l exercis WYATT Velázquez 01/15 [facility] EXERCISE CLASS [id number] [id number] Diagnos is: ICD-10- CM Z72.3 Lack of physica l exercis e AG FERNANDEZ 01/18 [facility] EXERCISE CLASS [id number] [id number] Diagnos is: ICD-10- CM Z72.3 Lack of physica l exercis WYATT Velázquez 01/20 [facility] Out[facility] Encounter [id number] 01/22 [facility] Outpatient Encounter [id number] [id number] 49 01/28 [facility] EXERCISE CLASS [id number] [id number] Diagnos is: ICD-10- CM Z72.3 Lack of physica l exercis WYATT Velázquez 01/29 [facility] EXERCISE CLASS [id number] [id number] Diagnos is: ICD-10- CM Z72.3 Lack of physica l exercis AG Sandy 02/01 [facility] MANUAL THERAPY [place] [id number] [id number] Diagnos is: ICD-10- CM M48.07 Spinal stenosi s, lumbosa cral region WYATT SHIRLEY 02/01 [facility] Out[facility]counter [id number] MACIEL,[facility] ISTOPHER E 02/01 [facility] EXERCISE CLASS [id number] Diagnos is: ICD-10- CM Z72.3 Lack of physica l exercis e Carlos PARIS 02/03 [facility] EXERCISE CLASS [id number] Diagnos is: ICD-10- CM Z72.3 Lack of physica l exercis e AG FERNANDEZ M 02/05 [facility] EXERCISE CLASS [id number] Diagnos is: ICD-10- CM Z72.3 Lack of physica l exercis e AG FERNANDEZ M 02/08 [facility] EXERCISE CLASS [id number] Diagnos is: ICD-10- CM Z72.3 Lack of physica l exercis e Carlos PARISIN 02/10 [facility] EXERCISE CLASS [id number] Diagnos is: ICD-10- CM Z72.3 Lack of physica l exercis e WYATT SHIRLEY 02/12 [facility] EXERCISE CLASS [id number] Diagnos is: ICD-10- CM Z72.3 Lack of physica l exercis e WYATT SHIRLEY 02/24 [facility] THERAPEUTI C EXERCISES [id number] . Diagnos is: ICD-10- CM M48.07 Spinal stenosi s, lumbosa cral region WYATT SHIRLEY 02/25 [facility] EXERCISE CLASS [id number] . Diagnos is: ICD-10- CM Z72.3 Lack of physica l exercis e AG FERNANDEZY M 02/26 [facility] EXERCISE CLASS [id number] . Diagnos is: ICD-10- CM Z72.3 Lack of physica l exercis e AG FERNANDEZ LLY M 03/01 [facility] EXERCISE CLASS [id number] Diagnos is: ICD-10- CM Z72.3 Lack of physica l exercis e Carlos PARIS 03/03 [facility] EXERCISE CLASS [id number] Diagnos is: ICD-10- CM Z72.3 Lack of physica l exercis e AG FERNANDEZ LLY M 03/05 [facility] EXERCISE CLASS [id number] Diagnos is: ICD-10- CM Z72.3 Lack of physica l exercis e WYATT SHIRLEY 03/12 [facility] EXERCISE CLASS [id number] Diagnos is: ICD-10- CM Z72.3 Lack of physica l exercis e AG FERNANDEZ 03/19 [facility] OFF/OP EST MAY X REQ PHY/QHP [id number] Diagnos is: ICD-10- CM R30.0 Dysuria DOYLEJULIANOEdward 03/22 [facility] OFFICE O/P EST MOD 30 MIN [id number] 1. Diagnos is: ICD-10- CM R82.81 Pyuria ARMAND LIONGaurang BLISSBRI 03/22 [facility] EXERCISE CLASS [id number] Diagnos is: ICD-10- CM Z72.3 Lack of physica l exercis e Carlos PARIS 03/24 [facility] OFFICE O/P EST SF 10 MIN [id number] Diagnos is: ICD-10- CM Z72.3 Lack of physica l exercis e AG FERNANDEZ 03/26 [facility] OFFICE O/P EST HI 40 MIN [id number] Diagnos is: ICD-10- CM M48.07 Spinal stenosi s, lumbosa cral region LOPEZ,LISA BRITTNEY THI 04/14 [facility] EXERCISE CLASS [id number] Diagnos is: ICD-10- CM Z72.3 Lack of physica l exercis e AG FERNNADEZ 04/16 [facility] Out[facility] Encounter [id number] 04/19 [facility] EXERCISE CLASS [id number] Diagnos is: ICD-10- CM Z72.3 Lack of physica l exercis e Carlos PARIS 04/21 [facility] OFF/OP EST MAY X REQ PHY/QHP [id number] Diagnos is: ICD-10- CM Z71.89 Other specifi ed genetic counselor OCTAVIA Patel 04/21 [facility] EXERCISE CLASS [id number] Diagnos is: ICD-10- CM Z72.3 Lack of physica l exercis e WYATT SHILREY 04/23 [facility] EXERCISE CLASS [id number] Diagnos is: ICD-10- CM Z72.3 Lack of physica l exercis e AG FERNANDEZ 04/26 [facility] Out[facility] Encounter [id number] 04/26 [facility] Out[facility] Encounter [id number] 1. Edward ZHOU 04/26 [facility] Out[facility] Encounter [id number] 1. 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 SHAKEEL ORTA A 04/27 [facility] EXERCISE CLASS [id number] Diagnos is: ICD-10- CM Z72.3 Lack of physica l exercis e Carlos PARIS 04/28 [facility] [place]LISTED PHYSCL [place] [id number] Diagnos is: ICD-10- CM Z72.3 Lack of physica l exercis e WYATT SHIRLEY 04/30 [facility] EXERCISE CLASS [id number] Diagnos is: ICD-10- CM Z72.3 Lack of physica l exercis e AG FERNANDEZ 04/30 [facility] Out[facility] Encounter [id number] Edward ZHOU 05/04 [facility] Out[facility] Encounter [id number] 05/11 [facility] EXERCISE CLASS [id number] Diagnos is: ICD-10- CM Z72.3 Lack of physica l exercis e WYATT SHIRLEY 05/14 [facility] OFFICE O/P EST MOD 30 MIN [id number] Diagnos is: ICD-10- CM H40.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 1 Primary open-an gle glaucom a, bilater al, mild stage TAYLOR MUIR J 05/14 [facility] EXERCISE CLASS [id number] Diagnos is: ICD-10- CM Z72.3 Lack of physica l exercis e AG FERNANDEZ 05/17 [facility] OFFICE O/P EST MOD 30 MIN [id number] Diagnos is: ICD-10- CM G47.30 Sleep apnea, unspeci DILAN Couch 05/18 [facility] EXERCISE CLASS [id number] Diagnos is: ICD-10- CM Z72.3 Lack of physica l exercis e AG FERNANDEZ 05/24 [facility] EXERCISE CLASS [id number] Diagnos is: ICD-10- CM Z72.3 Lack of physica l exercis e Carlos PARIS 05/26 [facility] Out[facility] Encounter [id number] 05/26 [facility] Out[facility] Encounter [id number] 05/26 [facility] Outpatient Encounter [id number] 05[facility]26 [facility] EXERCISE CLASS [id number] Diagnos is: ICD-10- CM Z72.3 Lack of physica l exercis e RAINACarlos CR 06/02 [facility] OFF/OP EST MAY X REQ PHY/QHP [id number] Diagnos is: ICD-10- CM I11.9 Hyperte nsive heart disease without heart failure Edward ZHOU 06/03 [facility] EXERCISE CLASS [id number] Diagnos is: ICD-10- CM Z72.3 Lack of physica l exercis e WYATT SHIRLEY 06/04 [facility] EXERCISE CLASS [id number] Diagnos is: ICD-10- CM Z72.3 Lack of physica l exercis e WYATT SHIRLEY 06/07 [facility] EXERCISE CLASS [id number] Diagnos is: ICD-10- CM Z72.3 Lack of physica l exercis e Carlos PARISIN 06/09 [facility] EXERCISE CLASS [id number] Diagnos is: ICD-10- CM Z72.3 Lack of physica l exercis e AG FERNANDEZ M 06/11 [facility] Outpatient Encounter [id number] 06[facility]11 [facility] EXERCISE CLASS [id number] Diagnos is: ICD-10- CM Z72.3 Lack of physica l exercis e AG FERNANDEZ M 06/14 [facility] EXERCISE CLASS [id number] Diagnos is: ICD-10- CM Z72.3 Lack of physica Carlos Hanna 06/16 [facility] [place] [facility] Social History Combined list of available smoking, tobacco, and other social history from Department of Defense and Veterans Affairs facilities. Social History Type Response Date Comment Source Tobacco smoking status [facility] NEVER USED 11/11/2023 [facility] [place] [facility] of [facility] [place] [facility] History of [facility] 08/30/2021 [facility] [place] [facility] of [facility] OR MORE 08/07/2020 [facility] [place] [facility] History of [facility] OR MORE 07/12/2019 [facility] [place] [facility] History of [facility] < 15 YRS 07/03/2018 [facility] [place] [facility] History of tobacco use QUIT TOBACCO USE > 7 YEARS AGO 09/01/2017 [facility] [place] [facility] History of tobacco use QUIT TOBACCO USE > 7 YEARS AGO 08/29/2016 [facility] [place] [facility] History of tobacco use QUIT TOBACCO USE > 7 YEARS AGO 08/15/[facility] [place] [facility] History of tobacco use QUIT TOBACCO USE > 7 YEARS AGO 02/20/2007 quit 20 years ago [place] History of tobacco use NON TOBACCO USER - QUIT >7 YEARS AGO 01/22/2006 MIKA ESTES Plan of Care List of future care activities from Department of Veterans Affairs facilities. Additional future care activities may be listed in the Assessment and Plan section. Date/Time Care Activity Care Activity Detail Facili ty 06/17/2024 AMBULATORY - MEDICINE [facility] Advance Directives List of completed, amended, or rescinded Advance Directives on record at Department of Veterans Affairs facilities. An actual copy of the Directive is not included. Date Advance Directive Provider Source 12/17/2018 ADVANCE DIRECTIVE LIZ HERNANDEZ [facility] 05/30/2017 ADVANCE DIRECTIVE VICTOR MANUEL PAINTING [facility] 12/25/2005 ADVANCE DIRECTIVE IRENA OSEI [facility]
--- OUTSIDE RECORDS SUMMARY | 2024-06-17 10:48 | XMS_ITS | Encounter Summary ---
Author Name [facility] Organization [facility] Address [address] [place] [address] Care Team Providers Care Marketing Content Coordinator Name Role Phone DILAN LOPEZ Primary Care [...] O MEDEX BRONZ E Oct 15, 2008 [id number] [phone] CARIE MAE PATIENT ANTHEM BCBS OF [place] (BLUECARD) MEDICARE SUPPLEMEN HUMZA MEDEX BRONZ E Feb 14, 2022 [id number] CARIE MAE [place]UM[place] MEDEX BRONZ E Feb 14, 2022 [id number] CARIE [place]UM[place] MEDEX BRONZ E Oct 15, 2008 [id number] CARIE MAE PATIENT [place] SUPPLE[place] HUMZA MEDEX HEARI NG AND Mar 17, 2019 [id number] CARIE MAE PATIENT MEDICARE (WNR) MEDICARE (M) PART A Oct 15, 2008 PART A [id number] CARIE MAE PATIENT MEDICARE (WNR) MEDICARE (M) PART B Oct 15, 2008 PART B [id number] [phone] CARIE MAE PATIENT MEDICARE (WNR) MEDICARE (M) PART B Oct 15, 2008 PART B [id number] CARIE MAE PATIENT MEDICARE (WNR) MEDICARE (M) PART A Oct 15, 2008 PART A [id number] CARIE MAE PATIENT MEDICARE (WNR) MEDICARE (M) PART A Oct 15, 2008 PART A [id number] CARIE MAE PATIENT MEDICARE (WNR) MEDICARE (M) PART B Oct 15, 2008 PART B [id number] CARIE MAE PATIENT MEDICARE (WNR) MEDICARE (M) PART A Oct 15, 2008 PART A [id number] [phone] CARIE MAE PATIENT MEDICARE (WNR) MEDICARE (M) PART B Oct 15, 2008 PART B [id number] [id number] [phone] CARIE MAE PATIENT Selected Encounter This section includes the information on record at ID for the Encounter. Date/Time Encounter Type Encounter Description Reason Provider Source Apr 30, 2024 12:36 PM EXERCISE CLASS [facility] ICD-10-CM Z72.3 Lack of physical exercise NINA FERNANDEZ E Encounter Template Text not used by ID Assessments - Encounter Diagnoses This section includes the primary and secondary diagnoses documented for the Encounter. Date/Time Primary/Secondary Diagnosis Diagnosis Name Provider Source Apr 30, 2024 12:49 PM PRIMARY Lack of physical exercise NINA FERNANDEZ [facility] Plan of Treatment: Future Appointments (+ 6 months) and Future Tests (+/- 45 days) The Plan of Treatment section includes future care activities for the patient from all ID treatmentfacilities. This section includes future appointments and future orders which are active, pending or scheduled. Future Appointments This section includes appointments that were scheduled to occur 6 months from the date of the Encounter, up to a maximum of 20 appointments. The data comes from all [facility]. Appointment Date/Time Appointment Type Appointme nt Facility Name May 14, 2024 01:30 PM [facility] May 18, 2024 08:00 AM [facility]ORY [facility] May 26, 2024 02:30 PM [facility] Jun 03, 2024 10:00 AM [facility] Jun 17, 2024 10:30 AM [facility] Sep 28, 2024 08:30 AM AMBULATORY - MEDICINE [facility] Active, Pending, and Scheduled Orders This section includes a listing of several types of active, pending, and scheduled orders, including clinic medications orders, diagnostic test orders, procedure orders and consult orders; where the start date of the order is 45 days before the date of the Encounter or 45 days after the date of theEncounter. The data comes from all [facility]. Test Date/Time Test Type Test Details Facility Name Apr 21, 2024 01:04 PM Consult Order COMMUNITY CARE-UROLOGY Cons Coding Quality Coordinator's Choice [facility] Lab Results: +/- 30 days of the encounter This section includes the Chemistry and Hematology Lab Results on record with ID for the patient. Radiology Reports and Pathology Reports are provided separately, in subsequent sections. Lab Results This section contains the Chemistry/Hematology Results that were resulted 30 days before or 30 daysafter the date of the Encounter. Date/Time Source Result Type Result - Unit Interpretation Reference Range Comment May 04, 2024 07:49 AM [facility] PSA Specimen Type: SERUM No comment entered. Ordering Provider: NVAARRO LOPEZ Report Released Date/Time: Nov 11, 2023 11:31 AM Reporting Lab: [address] [address] Performing Lab: [facility] [address] [address] PSA 4.75 ng/mL H 0.00-4.00 May 04, 2024 07:49 AM [facility] LIPID PANEL FASTING Specimen Type: SERUM No comment entered. Ordering Provider: NAVARRO LOPEZ Report Released Date/Time: Nov 11, 2023 11:31 AM Reporting Lab: [facility] [address] [address] Performing Lab: [facility] [address] [address] CHOLESTEROL 192 mg/dL TRIGLYCERIDE 98 mg/dL 0-150 LDL calculated 130 mg/dL H 0-129 CHOL/HDL 4.6 HDL CHOLESTEROL 42 mg/dL 40-60 May 04, 2024 07:49 AM [facility] LIVER FUNCTION Specimen Type: SERUM No comment entered. Ordering Provider: NAVARRO LOPEZ Report Released Date/Time: Nov 11, 2023 11:31 AM Reporting Lab: [facility] [address] [address] Performing Lab: [address] [address] PROTEIN,TOTAL 6.9 g/dL 6.0-8.3 ALBUMIN 3.8 g/dL 3.5-5.0 ALKALINE PHOSPHATASE 44 U/L 40-150 AST 16 U/L 5-34 ALT 16 U/L BILIRUBIN, TOTAL 0.3 mg/dL 0.2-1.2 May 04, 2024 07:49 AM [facility] BASIC METABOLIC PANEL (fasting) Specimen Type: SERUM No comment entered. Ordering Provider: NAVARRO LOPEZ Report Released Date/Time: Nov 11, 2023 11:31 AM Reporting Lab: [facility] [address] [address] Performing Lab: [address] [address] UREA NITROGEN 18 mg/dL 7-25 GLUCOSE 100 [...] and tobacco- related health factors from the ID facility where the Encounter took place. Current Smoking Status This section includes the most current smoking, or tobacco-related health factor, from the ID facility where the Encounter took place. Date/Time Current Smoking Status Comment Facil ity Nov 11, 2023 11:00 AM VA-TOBACCO NEVER USED [facility] [place] [facility] Tobacco Use History This section includes a history of the smoking, or tobacco-related health factors, that were collected on or before the date of the Encounter. The data comes from the ID facility where the Encounter took place. Date/Time Smoking Status/Tobacco Use Comment F acility Sep 27, 2022 10:30 AM VA-TOBACCO FORMER USER [facility] [place] [facility] Sep 27, 2022 10:30 AM VA-TOBACCO QUIT 15 YRS OR MORE [facility] [place] [facility] Aug 30, 2021 09:20 AM VA-TOBACCO FORMER USER [facility] [place] [facility] Aug 30, 2021 09:20 AM VA-TOBACCO QUIT 15 YRS OR MORE [facility] [place] [facility] August 07, 2020 09:00 AM VA-TOBACCO FORMER USER [facility] [place] [facility] August 07, 2020 09:00 AM VA-TOBACCO QUIT 15 YRS OR MORE [facility] [place] [facility] Jul 12, 2019 10:05 AM VA-TOBACCO FORMER USER [facility] [place] [facility] Jul 12, 2019 10:05 AM VA-TOBACCO QUIT 15 YRS OR MORE [facility] [place] [facility] Jul 03, 2018 10:51 AM VA-TOBACCO FORMER USER [facility] [place] [facility] Jul 03, 2018 10:51 AM VA-TOBACCO QUIT 5 TO < 15 YRS [facility] Sep 01, 2017 10:25 AM QUIT TOBACCO USE > 7 YEARS AGO [facility] Aug 29, 2016 09:22 AM QUIT TOBACCO USE > 7 YEARS AGO [facility] August 15, 2015 02:32 PM QUIT TOBACCO USE > 7 YEARS AGO [facility] Advance Directives: All historical and current Section Date Range: From patient's date of to the date document was created. This section includes ALL of a patient's completed or amended ID Advance and Rescinded Directives. The entries below indicate that a directive exists for the patient, but an actual copy is not included with this document. The data comes from all ID facilities. Date Advance Directives Provider Source Dec 17, 2018 ADVANCE DIRECTIVE LIZ HERNANDEZ [facility] May 30, 2017 ADVANCE DIRECTIVE VICTOR MANUEL PAINTING [facility] Dec 25, 2005 ADVANCE DIRECTIVE IRENA OSEI [facility] Radiology Reports: +/- 30 days of the [...] the Encounter. The data comes from all ID treatment facilities. Date/Time Radiology Report Provider Source May 26, 2024 03:05 PM FLUOROSCOPIC ARIC NCE OF NEEDLE/SPINE: TUCARIE S [id number] -[id number] M Ex Date: MAY 26, 2024@15:05 Req Phys: LISA LOPEZ Pat Loc: [facility] MED REHAB SPGaurang GUDINO MD (Req' Img Loc: [facility]/BUILDING 1 Service: Unknown [facility] [address] (Case [id number] COMPLETE) FLUOROSCOPIC GUIDANCE OF NEEDLE/S(RAD Detailed) CPT:37408 Reason for Study: transforaminal epidural steroid injection Clinical History: Report Status: Verified Date Reported: MAY 26, 2024 Date Verified: MAY 26, 2024 Biometrics Analyst E-Sig:/ES/JOSE BEJARANO JR Report: Study: Pain injection [...] Primary Interpreting Staff: JOSE BEJARANO JR, Radiologist (Biometrics Analyst) /JOSE MOORE JR [facility] Encounter Notes: All associated encounter notes This section contains the clinical notes associated to the Encounter. Date/Time Encounter Note(s) Provider Source Apr 30, 2024 12:42 PM PHYSICAL MEDICINE REHAB NOTE: LOCAL TITLE: GEROFIT-SUPERVISED EXERCISE NOTE STANDARD TITLE: PHYSICAL MEDICINE REHAB NOTE DATE OF NOTE: APR 30, 2024@12:42 ENTRY DATE: APR 30, 2024@12:42:54 AUTHOR: NINA FERNANDEZ EXP COSIGNER: URGENCY: STATUS: COMPLETED [place] participated in the [facility] exercise program today. Activities were focused on progression of their individual exercise prescription (cardiorespiratory fitness training, strength training, etc.) and group based exercise sessions to include, but not limited to: flexibility training, balance training, functional circuit training, Russ Chi for arthritis, and other functional strength and neuromotor exercises. Exercise participation was supervised by [facility] staff and any questions/concerns were addressed with the patient. Modifications were made to programming as appropriate to suit Veterans individual needs, preferences, and whole health concerns. /juliann/ Nina Fernandez PT,DPT PHYSICAL THERAPIST Signed: 04/30/2024 12:50 NINA FERNANDEZ [facility]
--- OUTSIDE RECORDS SUMMARY | 2024-06-17 10:48 | XMS_ITS | Encounter Summary ---
Author Name [facility] Address [address] [place] [address] Care Team Providers Care Trauma Manager Name Role Phone DILAN LOPEZ Primary Care [...] O MEDEX BRONZ E Oct 15, 2008 [id number] [phone] CARIE MAE PATIENT ANTHEM BCBS OF [place] (BLUECARD) MEDICARE SUPPLEMEN HUMZA MEDEX BRONZ E Feb 14, 2022 [id number] [phone] CARIE MAE PATIENT [place]BS [place] SUPPLEMEN HUMZA MEDEX BRONZ E Feb 14, 2022 [id number] CARIE MAE PATIENT [place] SUPPLEMEN HUMZA MEDEX BRONZ E Oct 15, 2008 [id number] CARIE MAE PATIENT [place] MEDICARE SUPPLEMEN HUMZA MEDEX HEARI NG AND Mar 17, 2019 [id number] CARIE MAE PATIENT MEDICARE (WNR) MEDICARE (M) PART A Oct 15, 2008 PART A [id number] CARIE MAE PATIENT MEDICARE (WNR) MEDICARE (M) PART B Oct 15, 2008 PART B [id number] CARIE MAE PATIENT MEDICARE (WNR) MEDICARE (M) PART A Oct 15, 2008 PART A [id number] [phone] CARIE MAE PATIENT MEDICARE (WNR) MEDICARE (M) PART B Oct 15, 2008 PART B [id number] CARIE MAE PATIENT MEDICARE (WNR) MEDICARE (M) PART A Oct 15, 2008 PART A [id number] CARIE MAE PATIENT MEDICARE (WNR) MEDICARE (M) PART B Oct 15, 2008 PART B [id number] CARIE MAE PATIENT MEDICARE (WNR) MEDICARE (M) PART A Oct 15, 2008 PART A [id number] CARIE MAE PATIENT MEDICARE (WNR) MEDICARE (M) PART B Oct 15, 2008 PART B [id number] CARIE MAE PATIENT Selected Encounter This section includes the information on record at [place] for the Encounter. Date/Time Encounter Type Encounter Description Reason Pro vider Source Jan 29, 2024 11:54 AM Outpatient Encounter [facility]ICAL [facility]ARM[facility]Y [facility] Encounter Template Text not used by [place] Plan of Treatment: Future Appointments (+ 6 months) and Future Tests (+/- 45 days) The Plan of Treatment section includes future care activities for the patient from all [place] treatmentfacilities. This section includes future appointments and future orders which are active, pending or scheduled. Future Appointments This section includes appointments that were scheduled to occur 6 months from the date of the Encounter, up to a maximum of 20 appointments. The data comes from all [place] treatment facilities. Appointment Date/Time Appointment Type Appointme nt Facility Name Feb 02, 2024 09:00 AM AMBULATORY - REHAB MEDICIN E [facility] [place] [facility] Feb 26, 2024 08:00 AM AMBULATORY - [facility] MEDIC[facility] [place] [facility] Mar 22, 2024 08:00 AM AMBULATORY - MEDICINE [facility] [place] [facility] Mar 22, 2024 08:30 AM AMBULATORY - MEDICINE [facility] [place] [facility] Apr 14, 2024 09:00 AM AMBULATORY - REHAB MEDICIN E [facility] [place] [facility] Apr 19, 2024 09:00 AM AMBULATORY - MEDICINE [facility] [place] [facility] Apr 21, 2024 10:00 AM AMBULATORY - MEDICINE [facility] [place] [facility] May 14, 2024 01:30 PM AMBULATORY - MEDICINE [facility] [place] [facility] May 18, 2024 08:00 AM AMBULATORY - MEDICINE [facility] [place] [facility] May 26, 2024 02:30 PM AMBULATORY - REHAB MEDICIN E [facility] [place] [facility] Jun 03, 2024 10:00 AM AMBULATORY - MEDICINE [facility] [place] [facility] Jun 17, 2024 10:30 AM AMBULATORY - MEDICINE [facility] [place] [facility] Lab Results: +/- 30 days of the encounter This section includes the Chemistry and Hematology Lab Results on record with [place] for the patient. Radiology Reports and Pathology Reports are provided separately, in subsequent sections. Lab Results This section contains the Chemistry/Hematology Results that were resulted 30 days before or 30 daysafter the date of the Encounter. Date/Time Source Result Type Result - Unit Interpretation Reference Range Comment Jan 28, 2024 10:48 AM [facility] [place] [facility] BASIC METABOLIC PANEL (fasting) Specimen Type: SERUM No comment entered. Ordering Provider: NAVARRO LOPEZ Report Released Date/Time: Dec 10, 2023 01:06 PM Reporting Lab[facility] [address] [facility] [address] Performing Lab: [facility] [place] [address] [facility] [address] UREA NITROGEN 15 mg/dL 7-25 GLUCOSE 86 mg/dL 65-100 SODIUM 140 mmol/L 135-145 POTASSIUM 4.3 mmol/L 3.5-5.0 CHLORIDE 104 mmol/L 100-110 CO2 22 meq/L 20-30 CREATININE, Serum 0.92 mg/dL 0.50-1.40 eGFR(CKD-EPI 2020) 84 mL/min >60 Jan 28, 2024 10:47 AM [facility] CREATININE (eGFR 2020) Specimen Type: SERUM No comment entered. Ordering Provider: WOODY ANDRE Report Released Date/Time: Jan 12, 2024 09:43 AM Reporting Lab: [address] [address] Performing Lab: [address] [address] CREATININE, Serum 0.91 mg/dL 0.50-1.40 eGFR(CKD-EPI 2020) 85 mL/min >60 Jan 28, 2024 10:47 AM [facility] CBC Specimen Type: BLOOD No comment entered. Ordering Provider: WOODY ANDRE Report Released Date/Time: Jan 12, 2024 09:43 AM Reporting Lab: [address] [address] Performing Lab: [address] [address] WBC 7.04 10*3/uL 4.50-11.00 RBC 4.72 10*6/uL 4.23-5.66 HGB 13.3 g/dL 12.8-17 HCT 40.9 39.2-50.4 MCV 86.7 fL 82-99 MCHC 32.5 g/dL 30.8-35.1 PLT 221 10*3/uL 140-360 RDW-CV 13.7 12.0-16.0 MCH 28.2 pg 26.2-32.6 Advance Directives: All historical and current Section Date Range: From patient's date of to the date document was created. This section includes ALL of a patient's completed or amended [place] Advance and Rescinded Directives. The entries below indicate that a directive exists for the patient, but an actual copy is not included with this document. The data comes from all [place] facilities. Date Advance Directives Provider Source Dec 17, 2018 ADVANCE DIRECTIVE LIZ HERNANDEZ [facility] May 30, 2017 ADVANCE DIRECTIVE VICTOR MANUEL [facility] Dec 25, 2005 ADVANCE DIRECTIVE IRENA OSEI Noreen [facility] Encounter Notes: All associated encounter notes This section contains the clinical notes associated to the Encounter. Date/Time Encounter Note(s) Provider Source Jan 29, 2024 11:54 AM LETTERS: LOCAL TITLE: PATIENT LETTER (T) STANDARD TITLE: LETTERS DATE OF NOTE: JAN 29, 2024@11:54 ENTRY DATE: JAN 29, 2024@11:55:09 AUTHOR: EZEQUIEL ANDRE EXP COSIGNER: URGENCY: STATUS: COMPLETED DEPARTMENT OF [facility] Toll Free Number Primary Care Telephone Assistance can be reached at extension [phone] [facility] scheduling can be reached at extension [phone] [facility] scheduling can be reached at ext [phone] CARIE MAE [address], [place], [address] Dear , Thank you for coming in to have your labs drawn. A complete blood count was checked and remains stable. Your kidney function was also checked to ensure your dose of ELIQUIS (APIXABAN) is appropriate. Your kidney function remains stable and no dose adjustment is needed. Please find your lab results below, compared to your previous results. BLOOD Jan 27 Dec 12 Reference 2023 2022 10:47 10:08 Units Ranges WBC 7.04 5.11 K/cmm 4.5 - 11 RBC 4.72 4.76 M/cmm 4.23 - 5.66 HGB 13.3 13.0 g/dL 12.8 - 17 HCT 40.9 40.6 % 39.2 - 50.4 MCV 86.7 85.3 fl 82 - 99 MCH 28.2 27.3 pg 26.2 - 32.6 MCHC 32.5 32.0 g/dL 30.8 - 35.1 RDW 13.7 14.2 % 12 - 16 PLT 221 221 K/cmm 140 - 360 SERUM Jan 27 Jan 27 Nov 05 Jul 14 Reference 2023 2023 2023 2023 10:48 10:47 07:55 11:21 Units Ranges CREATININE 0.92 0.91 0.89 1.01 mg/dL .5 - 1.4 If you have questions, please call the [facility] at the following number(s): [phone]. [phone] Sincerely, Your Primary Care Team [facility] [address] [address] [place] [address] [phone] [facility] [address] [place] [address] [place] [address] [phone] [facility] [address] [facility] [place] [address] [place] [address] [phone] EZEQUIEL ANDRE [facility]
--- OUTSIDE RECORDS SUMMARY | 2024-06-17 10:48 | XMS_ITS | Encounter Summary ---
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 Role Phone DILAN LOPEZ Primary Care [...] O MEDEX BRONZ E Oct 15, 2008 [id number] [phone] CARIE MAE PATIENT ANTHEM BCBS OF [place] (BLUECARD) MEDICARE SUPPLEMEN UHMZA MEDEX BRONZ E Feb 14, 2022 [id number] CARIE MAE [place]IENT [place] SUPPLEMEN HUMZA MEDEX BRONZ E Feb 14, 2022 [id number] CARIE MAE [place] SUPPLEMEN HUMZA MEDEX BRONZ E Oct 15, 2008 [id number] CAREI MAE PATIENT [place] MED[place]ARE SUPPLEMEN HUMZA MEDEX HEARI NG AND Mar 17, 2019 [id number] CARIE MAE PATIENT MEDICARE (WNR) MEDICARE () PART A Oct 15, 2008 PART A [id number] [phone] CARIE MAE PATIENT MEDICARE (WNR) MEDICARE () PART B Oct 15, 2008 PART B [id number] [phone] CARIE MAE PATIENT MEDICARE (WNR) MEDICARE () PART A Oct 15, 2008 PART A [id number] CARIE MAE PATIENT MEDICARE (WNR) MEDICARE () PART B Oct 15, 2008 PART B [id number] [phone] [id number] CARIE MAE PATIENT MEDICARE (WNR) MEDICARE () PART A Oct 15, 2008 PART A [id number] [phone] CARIE MAE PATIENT MEDICARE (WNR) MEDICARE () PART B Oct 15, 2008 PART B [id number] CARIE MAE PATIENT MEDICARE (WNR) MEDICARE () PART A Oct 15, 2008 PART A [id number] CARIE MAE PATIENT MEDICARE (WNR) MEDICARE () PART B Oct 15, 2008 PART B [id number] CARIE MAE PATIENT Selected Encounter This section includes the information on record at [place] for the Encounter. Date/Time Encounter Type Encounter Description Reason Provider Source May 14, 2024 01:30 PM OFFICE O/P EST MOD 30 MIN OPTOMETRY ICD-10-CM H40.1131 Primary open-angle glaucoma, bilateral, mild stage BERNICE MUIR E Encounter Template Text not used by [place] Assessments - Encounter Diagnoses This section includes the primary and secondary diagnoses documented for the Encounter. Date/Time Primary/Secondary Diagnosis Diagnosis Name Provider Source May 14, 2024 04:30 PM PRIMARY Primary open-angle glaucoma, bilateral, mild stage BERNICE MUIR [place] [facility] [place] [facility] May 14, 2024 04:30 PM SECONDARY Combined forms of age-related cataract, bilateral [facility] [place] [facility] May 14, 2024 04:30 PM SECONDARY Dry eye syndrome of bilateral lacrimal glands [facility]ICE MU[facility] [place] [facility] May 14, 2024 04:30 PM SECONDARY Other optic atrophy, right eye [facility]ERNICE MU[facility] [place] [facility] May 14, 2024 04:30 PM SECONDARY Presbyopia BERNICE MUIR [facility] Plan of Treatment: Future Appointments (+ 6 months) and Future Tests (+/- 45 days) The Plan of Treatment section includes future care activities for the patient from all [place] [facility]. This section includes future appointments and future orders which are active, pending or scheduled. Future Appointments This section includes appointments that were scheduled to occur 6 months from the date of the Encounter, up to a maximum of 20 appointments. The data comes from all [place] treatment facilities. Appointment Date/Time Appointment Type Appointme nt Facility Name May 18, 2024 08:00 AM AMBULATORY - MEDICINE [place] [facility] [place] [facility] May 26, 2024 02:30 PM AMBUL[facility] [place] [facility] Jun 03, 2024 10:00 AM AMBULATORY - MEDICINE [place] [facility] [place] [facility] Jun 17, 2024 10:30 AM AMBULATORY - MEDICINE [place] [facility] [place] [facility] Sep 28, 2024 08:30 AM AMBULATORY - MEDICINE [facility] Active, Pending, and Scheduled Orders This section includes a listing of several types of active, pending, and scheduled orders, including clinic medications orders, diagnostic test orders, procedure orders and consult orders; where the start date of the order is 45 days before the date of the Encounter or 45 days after the date of theEncounter. The data comes from all [facility] facilities. Test Date/Time Test Type Test Details Facility Name Apr 21, 2024 01:04 PM Consult Order COMMUNITY CARE-UROLOGY Cons Environmental Engineer Scientist's Choice [facility] Lab Results: +/- 30 days of the encounter This section includes the Chemistry and Hematology Lab Results on record with [place] for the patient. Radiology Reports and Pathology Reports are provided separately, in subsequent sections. Lab Results This section contains the Chemistry/Hematology Results that were resulted 30 days before or 30 daysafter the date of the Encounter. Date/Time Source Result Type Result - Unit Interpretation Reference Range Comment May 04, 2024 07:49 AM [facility] PSA Specimen Type: SERUM No comment entered. Ordering Provider: NAVARRO LOPEZ Report Released Date/Time: Nov 11, 2023 11:31 AM Reporting [facility] [address] Performing Lab: [address] [address] PSA 4.75 ng/mL H 0.00-4.00 May 04, 2024 07:49 AM [facility] LIPID PANEL FASTING Specimen Type: SERUM No comment entered. Ordering Provider: NAVARRO LOPEZ Report Released Date/Time: Nov 11, 2023 11:31 AM Reporting Lab: [address] [address] Performing [facility]: [facility] [address] CHOLESTEROL 192 mg/dL TRIGLYCERIDE 98 mg/dL 0-150 LDL calculated 130 mg/dL H 0-129 CHOL/HDL 4.6 HDL CHOLESTEROL 42 mg/dL 40-60 May 04, 2024 07:49 AM [facility] LIVER FUNCTION Specimen Type: SERUM No comment entered. Ordering Provider: NAVARRO LOPEZ Report Released Date/Time: Nov 11, 2023 11:31 AM Reporting [facility] [address] Performing Lab: [address] [address] PROTEIN,TOTAL 6.9 g/dL 6.0-8.3 ALBUMIN 3.8 g/dL 3.5-5.0 ALKALINE PHOSPHATASE 44 U/L 40-150 AST 16 U/L 5-34 ALT 16 U/L BILIRUBIN, TOTAL 0.3 mg/dL 0.2-1.2 May 04, 2024 07:49 AM [facility] BASIC METABOLIC PANEL (fasting) Specimen Type: SERUM No comment entered. Ordering Provider: NAVARRO LOPEZ Report Released Date/Time: Nov 11, 2023 11:31 AM Reporting Lab: [facility] [address] [address] Performing Lab: [facility] [address] [address] UREA NITROGEN 18 mg/dL 7-25 GLUCOSE 100 [...] and tobacco- related health factors from the [place] facility where the Encounter took place. Current Smoking Status This section includes the most current smoking, or tobacco-related health factor, from the [place] facility where the Encounter took place. Date/Time Current Smoking Status Comment Facil isela Nov 11, 2023 11:00 AM VA-TOBACCO NEVER USED [facility] Tobacco Use History This section includes a history of the smoking, or tobacco-related health factors, that were collected on or before the date of the Encounter. The data comes from the [place] facility where the Encounter took place. Date/Time Smoking Status/Tobacco Use Comment F acility Sep 27, 2022 10:30 AM VA-TOBACCO FORMER USER [place] [facility] [place] [facility] Sep 27, 2022 10:30 AM VA-TOBACCO QUIT 15 YRS OR MORE [facility] [place] [facility] Aug 30, 2021 09:20 AM VA-TOBACCO FORMER USER [place] [facility] [place] [facility] Aug 30, 2021 09:20 AM VA-TOBACCO QUIT 15 YRS OR MORE [facility] [place] [facility] August 07, 2020 09:00 AM VA-TOBACCO FORMER USER [place] [facility] [place] [facility] August 07, 2020 09:00 AM VA-TOBACCO QUIT 15 YRS OR MORE [facility] [place] [facility] Jul 12, 2019 10:05 AM VA-TOBACCO FORMER USER [facility] [place] [facility] Jul 12, 2019 10:05 AM VA-TOBACCO QUIT 15 YRS OR MORE [facility] [place] [facility] Jul 03, 2018 10:51 AM VA-TOBACCO FORMER USER [place] [facility] [place] [facility] Jul 03, 2018 10:51 AM VA-TOBACCO QUIT 5 TO < 15 YRS [place] [facility] [place] [facility] Sep 01, 2017 10:25 AM QUIT TOBACCO USE > 7 YEARS AGO [place] [facility] [place] [facility] Aug 29, 2016 09:22 AM QUIT TOBACCO USE > 7 YEARS AGO [place] [facility] [place] [facility] August 15, 2015 02:32 PM QUIT TOBACCO USE > 7 YEARS AGO [facility] Advance Directives: All historical and current Section Date Range: From patient's date of to the date document was created. This section includes ALL of a patient's completed or amended [place] Advance and Rescinded Directives. The entries below indicate that a directive exists for the patient, but an actual copy is not included with this document. The data comes from all [place] facilities. Date Advance Directives Provider Source Dec 17, 2018 ADVANCE DIRECTIVE LIZ HERNANDEZ [facility] May 30, 2017 ADVANCE DIRECTIVE VICTOR MANUEL PAINTING [place] [facility] [place] [facility] Dec 25, 2005 ADVANCE DIRECTIVE IRENA [...] the Encounter. The data comes from all [place] treatment facilities. Date/Time Radiology Report Provider Source May 26, 2024 03:05 PM FLUOROSCOPIC ARIC NCE OF NEEDLE/SPINE: CARIE MAE [id number] -[id number] M Exm Date: MAY 26, 2024@15:05 Req Phys: LOPEZLISA ADAMS THI Pat Loc: [facility] MED REHAB MIMA GUDINO MD (Req' Img Loc: [facility]/BUILDING 1 Service: Unknown [place] [address] (Case [id number] COMPLETE) FLUOROSCOPIC GUIDANCE OF NEEDLE/S(RAD Detailed) CPT:98999 Reason for Study: transforaminal epidural steroid injection Clinical History: Report Status: Verified Date Reported: MAY 26, 2024 Date Verified: MAY 26, 2024 Appeals Manager E-Sig:/ES/JOSE BEJARANO JR Report: Study: Pain injection [...] Primary Interpreting Staff: JOSE BEJARANO JR, Radiologist (Appeals Manager) /JOSE MOORE JR [facility] Encounter Notes: All associated encounter notes This section contains the clinical notes associated to the Encounter. Date/Time Encounter Note(s) Provider Source May 14, 2024 01:57 PM OPTOMETRY NOTE: LOCAL TITLE: OPTOMETRY NOTE STANDARD TITLE: OPTOMETRY NOTE DATE OF NOTE: MAY 14, 2024@13:57 ENTRY DATE: MAY 14, 2024@13:57:57 AUTHOR: BERNICE MUIR EXP COSIGNER: URGENCY: STATUS: COMPLETED OPTOMETRY NOTE Has ADDENDA Please assist in ordering the following Duplicate(s): OD 0.00 0.00 X Add:+3.00 Pzm:0.00 Dir: Prz2:0.00 Dir2: OS +4.00 -1.75 X105 Add:+3.00 Pzm:0.00 Dir: Prz2:0.00 Dir2: FITTING INFORMATION FPD: NPD: Nicholas:R:34 L:33.5 SEG HT:R:19 L:19 Tint:None Shade:None VA Billable Items FRAME: FX27 [facility] Right Lens: TRIVEX VA PROGRESSIVE TRIVEX Left Lens: TRIVEX VA PROGRESSIVE TRIVEX BALANCE LENS OD 0.00 0.00 X Add:+3.00 Pzm:0.00 Dir: Prz2:0.00 Dir2: OS +4.00 -1.75 X105 Add:+3.00 Pzm:0.00 Dir: Prz2:0.00 Dir2: FITTING INFORMATION FPD: NPD: Nicholas:R:34 L:33.5 SEG HT:R:19 L:19 Tint:YELLOW Shade:2 VA Billable Items FRAME: FX27 [facility] Right Lens: TRIVEX VA PROGRESSIVE TRIVEX Left Lens: TRIVEX VA PROGRESSIVE TRIVEX BALANCE LENS SOLID TINT OD 0.00 0.00 X Add:+3.00 Pzm:0.00 Dir: Prz2:0.00 Dir2: OS +4.00 -1.75 X105 Add:+3.00 Pzm:0.00 Dir: Prz2:0.00 Dir2: FITTING INFORMATION FPD: NPD: Nicholas:R:34 L:33.5 SEG HT:R:19 L:19 Tint:NAGEL Shade:3 VA Billable Items FRAME: FX27 [facility] [id number] Right Lens: TRIVEX VA PROGRESSIVE TRIVEX Left Lens: TRIVEX VA PROGRESSIVE TRIVEX BALANCE LENS SOLID TINT /camilo 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 OPT HT entered consult(s) for order on behalf of provider. /camilo LEON OPTOMETRY TECH Signed: 05/17/2024 16:11 BERNICE MUIR [place] [facility] [place] [facility] May 14, 2024 08:10 AM OPTOMETRY NOTE: LOCAL TITLE: OPTOMETRY NOTE STANDARD TITLE: OPTOMETRY NOTE DATE OF NOTE: MAY 14, 2024@08:10 ENTRY DATE: MAY 14, 2024@08:10:23 AUTHOR: BRENICE MUIR EXP COSIGNER: URGENCY: STATUS: COMPLETED Eye Examination for: CARIE MAE, 78 year old WHITE MALE ARLETH: 5..24 [facility], [address] Dr. Holden Reason for Visit/CC: Patient here for CEE. Upson reports he could not use most recent glasses from [facility], came in twice for adjustment and re-check and then went to private sector. Reports he was very unhappy with one of the HT he interracted with. Brought in Rx from private sector that he is happy with. Reports CHANTALE symptoms return when he stops using lubrication and was unaware he should continue using when symptoms resolve. Denies all other changes or complaints. Current Ocular Meds: Artificial Tears daily lubricating oliva infrequently OHx/HPI: 1. 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 RE, P (-) Pain: (-) RAM: (-) Diplopia: (-) Flashes: (-) Floaters: (-) Amaurosis Fugax/Tia's: (+) Eye Injury: trauma OD 40+ yrs ago resulting in TON OD (+) Eye Surgery: SLT OU (-) TBI FOHx: (-) Glaucoma (-) ARMD (-) Blindness MHx: Code Description G47.30 Sleep apnoea ([facility] [id number]) Z79.01 Long-term current use of anticoagulant ([facility] [id number]) I48.91 AF- Atrial Fibrillation ([facility] [id number]) Z95.0 Cardiac pacemaker in situ ([facility] [id number]) 272.4 Hyperlipidemia (ICD-9-CM 272.4) 365.11 Open Angle Glaucoma (ICD-9-CM 365.11) 377.41 Optic Neuropathy, Ischemic (ICD-9-CM 377.41) V12.72 Personal History of Colonic Polyps (ICD-9-CM V12.72) 719.41 Pain in joint involving shoulder region (ICD-9-CM 719.41) 530.81 Gastroesophageal Reflux Disorder (ICD-9-CM 530.81) 278.00 Obesity (ICD-9-CM 278.00) 715.90 Osteoarthrosis, unspecified whether generalized or localized, involving unspecif (ICD-9-CM 715.90) I11.9 Benign essential hypertension ([facility] [id number]) 696.1 Psoriasis (ICD-9-CM 696.1) 722.2 Herniated Disc (ICD-9-CM 722.2) D07.5 Prostate cancer ([facility] [id number]) SYSTEMIC MEDICATIONS/OCULAR MEDICATIONS: Active Outpatient Medications (including Supplies): Active Outpatient Medications Status 1) APIXABAN 5MG TAB TAKE ONE TABLET BY MOUTH TWICE DAILY ACTIVE 2) DAROLUTAMIDE 300MG TAB TAKE TWO TABLETS BY MOUTH TWICE DAILY ACTIVE 3) HYDROCHLOROTHIAZIDE 12.5MG CAP TAKE ONE CAPSULE BY MOUTH ACTIVE EVERY MORNING Indication: FOR HIGH BLOOD PRESSURE 4) LIDOCAINE 5% OINT APPLY SMALL AMOUNT TOPICALLY FOUR TIMES ACTIVE DAILY NEEDED Indication: FOR LEFT SHOULDER PAIN 5) LIDOCAINE 5% PATCH APPLY 2 PATCHES TOPICALLY ONCE DAILY ACTIVE (S) NEEDED (LEAVE PATCH ON FOR 12 HOURS, THEN REMOVE PATCH) Indication: FOR LOW BACK PAIN 6) LISINOPRIL 20MG TAB TAKE ONE TABLET BY MOUTH TWICE DAILY TO ACTIVE (S) CONTROL BLOOD PRESSURE Indication: FOR HIGH BLOOD PRESSURE 7) MIRABEGRON 25MG SA TAB TAKE ONE TABLET BY MOUTH ONCE DAILY ACTIVE Active Non-VA Medications Status 1) Non-VA DENOSUMAB (PROLIA) PA-F INJ,SOLN ACTIVE 2) Non-VA VITAMIN D3 (CHOLECALCIFEROL) TAB BY MOUTH ACTIVE 9 Total Medications ALLERGIES: CONTRAST MEDIA, BICALUTAMIDE VITALS (most recent, as listed in the electronic record): B/P: 110/68 (03/22/2024 08:27) Pulse: 91 (03/22/2024 08:27) Temperature: 98.6 F [37.0 C] (03/22/2024 08:27) Weight: 217 lb [98.43 kg] (11/11/2023 11:04) Height: 70 in [177.8 cm] (08/23/2022 08:14) BMI: BMI: 31.2 PERTINENT LABS: HEMOGLOBIN A1C TREND Collection DT Spec HGBA1c 02/17/2013 07:41 BLOOD 6.3 H 08/06/2012 07:09 BLOOD 6.3 H 03/23/2012 10:38 BLOOD 6.2 H Current Rx with last BCVA: NHM OD: Balance Light Perception OS: +3.50-1.22i708 20/20 Add: +3.00 20/20 Current Rx with last BCVA: Dr. Holden 7.17.24 OD: Balance OS: +4.00-1.18y296 Add: +3.00 DVA ( )sc ( x )cc - [x]phoropter []specs []CL OD: bare HM @1' OS: 20/20-1 Entrance Testing: Pupil: PERRL (-)APD EOM: SAFE OU, (-)Pain/Diplopia CVF: FTFC OU Subjective Refraction: OD: BALANCE HM OS: +4.00-1.71j079 20/20+2 Add: +3.00 SLE: Lids/Lashes: dermatochalasis OU Conjunctiva: white and quiet bulbar conj OU quiet palpebral conj OU Corneas: EBMD OU, inferior SPK OU Iris: flat and clear OU, (-)TID OU AC: D & Q OU Angles: 4x4 OU TAP @ 1:55pm OD 12 mmHg OS 09 mmHg [x]Garcia []iCare []GAT Last IOP: OD: 14 OS: 14 Tmax: unknown Previous Pachymetry: OD: 567 OS: 585 Dilating Drops: 1GTT 1 % Tropicamide OU & 1GTT 2.5% Phenylephrine OU (Pt. ed. on side effects, dilation warning given and verbal consent obtained) Patient advised not to drive if they feel they have any symptoms which could affect their ability to drive safely. Patient advised not to engage in any activities which could put themselves or others at risk if they feel they have any symptoms which could affect their ability to perform those activities safely. Dilated Fundus Exam: Vit: syneresis OU Lens: 1-2+ NSC OU, 1-2+ ACC OU (-)PXF OU C/D (Size and Rim Description) OD 0.80 pallor OS 0.55 pink and healthy, no focal notching (-)Drance heme OU PPole OD clear OS clear Macula OD flat and clear OS flat and clear A/V: normal caliber OU Periphery: flat and intact (-)holes, tears, detachments 360 OU Assessment/Plan: 1. Mild primary open-angle glaucoma OU s/p SLT OU with appropriate IOP based on ONH appearance and stability. No evidence of pigment dispersion or pseudoexfoliation OU. No known family history of glaucoma. No acute change in ONH appearance. Low index of suspicion for progression at present. -Pt ed re today's findings -Pt ed re glaucoma as well as the natural history of this diagnosis including prognosis. -Stress importance of compliance and persistency with medications -Stress importance of continued follow-up appointments -Upson repeated back the plan and education. -RTC 6 months for and IOP check 2. Traumatic optic neuropathy OD - stable pallor and acuity -Pt ed re today's findings -Monocular precaustions in lens material selection - repeated back the plan and education. -Monitor 3. Combined Cataracts OU - not visually significant at present -Pt ed re today's findings and the importance of UV protection -Pt ed cataracts may cause reduction of BCVA and symptoms of glare -RTC sooner if vision declines or interferes with ADLs -Upson repeated back the plan and education. -Monitor 4. Dry Eye Syndrome OU - symptomatic -Pt ed re today's findings -Recommend Artificial Tears QID OU -Recommend Lubricating ointment QHS OU - repeated back the plan and education. -Monitor 5. Refractive Error and Presbyopia OU -Rx updated and ordered per pt request PALx3 -Monitor RTC 6 months or earlier PRN (x)Appointment with coordinated visual imaging (x) HVF 24-2 (OS only) (x) RNFL OCT Glasses adjusted/repaired in office: () Yes (x) No If yes, how many pairs: Total Time: 32 minutes Education: Glaucoma: Patient was educated regarding glaucoma/glaucoma suspect as well as the natural history of this diagnosis including prognosis. Stress importance of compliance and persistency with glaucoma medication when prescribed, timely follow up as well as the role of ancillary testing. Exclusion criteria for ancillary testing include significantly reduced acuity, mental status changes affecting the patient's ability to attend to the test or other physical limitations that would prohibit the patient's ability to participate in testing. Medication Reconciliation: Outpatient: Has the patient been taking medications as documented in the EMLR? YES: The patient has been taking medications as documented in the EMLR. Essential Medication List for Review used to complete this medication reconciliation. INCLUDED IN THIS LIST: Alphabetical list of active outpatient prescriptions dispensed from this [place] (local) and dispensed from another [place] or [employer] facility (remote) as well as inpatient orders [...] whether with a VA or non-VA provider. Medication List: JLV Link Data on this list may not be complete. Please check JLV. Allergies/ADRs (Tool #5) FACILITY ALLERGY/ADR -------- HUBERT PRINCE [facility] CONTRAST MEDIA [facility] BICALUTAMIDE [facility] CONTRAST MEDIA Med. Reconciliation (Tool #1) INCLUDED IN THIS LIST: Alphabetical list of active outpatient prescriptions dispensed from this NM (local) and dispensed from another [place] or [facility] facility (remote) as well as inpatient orders (local pending and active), local clinic medications, locally documented non-VA medications, and local prescriptions that have or been discontinued in the past 90 days. Non-VA Meds Last Documented On: Jul 15, 2023 NOTE The display of VA prescriptions dispensed from another [place] or [employer] facility (remote) is limited to active outpatient prescription entries matched to National Drug File at the originating site and may not include some items such as investigational drugs, compounds, etc. NOT INCLUDED IN THIS LIST: Medications self-entered by the patient into personal health records (i.e. [employer] are NOT included in this list. Non-VA medications documented outside this [place], remote inpatient orders (regardless of status) and remote clinic medications are NOT included in this list. The patient and provider must always discuss medications the patient is taking, regardless of where the medication was dispensed or obtained. -------- OUTPT APIXABAN 5MG TAB (Status = Active) TAKE ONE TABLET BY MOUTH TWICE DAILY Rx# [id number] Last Released: 03/11/24 Qty/Days Supply: Rx Expiration Date: 08/27/24 Refills Remainin OUTPT CARBOXYMETHYLCELLULOSE NA 0.5% OPH SOLN (Status = Active/Suspended) INSTILL 1 DROP INTO EACH EYE FOUR TIMES A DAY FOR DRY EYE Rx# [id number] Last Released: Qty/Days Supply: Rx Expiration Date: 05/15/25 Refills Remainin Indication: FOR DRY EYE OUTPT CEPHALEXIN 500MG CAP (Status = Discontinued) TAKE ONE CAPSULE BY MOUTH EVERY 8 HOURS FOR INFECTION CAUSED BY BACTERIA FOR INFECTION Rx# [id number] Last Released: 03/22/24 Qty/Days Supply: 04/10 Rx Expiration Date: 04/21/24 Refills Remainin Indication: FOR INFECTION CAUSED BY BACTERIA OUTPT DAROLUTAMIDE 300MG TAB (Status = Active) TAKE TWO TABLETS BY MOUTH TWICE DAILY Rx# [id number] Last Released: 05/11/24 Qty/Days Supply: 120/30 Rx Expiration Date: 04/20/25 Refills Remainin Non-VA DENOSUMAB (PROLIA) PA-F INJ,SOLN INJECT OUTPT HYDROCHLOROTHIAZIDE 12.5MG CAP (Status = Active) TAKE ONE CAPSULE BY MOUTH EVERY MORNING FOR HIGH BLOOD PRESSURE Rx# [id number] Last Released: 05/08/24 Qty/Days Supply: 90 Rx Expiration Date: 12/18/24 Refills Remainin Indication: FOR HIGH BLOOD PRESSURE OUTPT LIDOCAINE 5% OINT (Status = Discontinued) APPLY SMALL AMOUNT TOPICALLY FOUR TIMES DAILY NEEDED FOR LEFT SHOULDER PAIN Rx# [id number] Last Released: 02/04/24 Qty/Days Supply: Rx Expiration Date: 11/11/24 Refills Remainin Indication: FOR LEFT SHOULDER PAIN OUTPT LIDOCAINE 5% OINT (Status = Active) APPLY SMALL AMOUNT TOPICALLY FOUR TIMES DAILY NEEDED FOR LEFT SHOULDER PAIN Rx# [id number] Last Released: 05/10/24 Qty/Days Supply: Rx Expiration Date: 04/15/25 Refills Remainin Indication: FOR LEFT SHOULDER PAIN OUTPT LIDOCAINE 5% PATCH (Status = Discontinued) APPLY 1 PATCH TOPICALLY ONCE DAILY NEEDED FOR LOW BACK PAIN (LEAVE PATCH ON FOR 12 HOURS, THEN REMOVE PATCH) Rx# [id number] Last Released: 02/19/24 Qty/Days Supply: Rx Expiration Date: 11/11/24 Refills Remainin Indication: FOR LOW BACK PAIN OUTPT LIDOCAINE 5% PATCH (Status = Active/Suspended) APPLY 2 PATCHES TOPICALLY ONCE DAILY NEEDED FOR LOW BACK PAIN (LEAVE PATCH ON FOR 12 HOURS, THEN REMOVE PATCH) Rx# [id number] Last Released: 05/05/24 Qty/Days Supply: Rx Expiration Date: 05/05/25 Refills Remainin Indication: FOR LOW BACK PAIN OUTPT LISINOPRIL 20MG TAB (Status = Active/Suspended) TAKE ONE TABLET BY MOUTH TWICE DAILY TO CONTROL BLOOD PRESSURE Rx# [id number] Last Released: 02/27/24 Qty/Days Supply: 180/ Rx Expiration Date: 12/18/24 Refills Remainin Indication: FOR HIGH BLOOD PRESSURE OUTPT LUBRICATING (PF) OPH OINT (Status = Active/Suspended) APPLY THIN RIBBON INTO EACH EYE AT BEDTIME FOR DRY EYE Rx# [id number] Last Released: Qty/Days Supply: Rx Expiration Date: 05/15/25 Refills Remainin Indication: FOR DRY EYE OUTPT MIRABEGRON 25MG SA TAB (Status = Active) TAKE ONE TABLET BY MOUTH ONCE DAILY Rx# [id number] Last Released: 11/13/23 Qty/Days Supply: Rx Expiration Date: 11/11/24 Refills Remainin Non-VA VITAMIN D3 (CHOLECALCIFEROL) TAB TAKE BY MOUTH -------- SUPPLIES -------- PHARMACY TERMS AND POSSIBLE PATIENT ACTIONS INPT = [place] inpatient order IV = [place] intravenous medication OUTPT = [place] outpatient prescription PHARMACY POSSIBLE PATIENT TERMS EXPLANATION ACTIONS -------- ACTIVE A prescription that can be If you have refills, filled at the local [place] pharmacy. you may request a refill of this prescription from your [place] pharmacy. CLINIC A medication you received during If you have questions a visit to a [place] clinic or about this medication emergency department. contact your [place] healthcare team. DISCONTINUED A prescription your provider has Contact your [facility] stopped. It is no longer healthcare team if you available to be sent to you or need more of this picked up at the [place] pharmacy medication. window. A prescription which is too old Contact your VA to fill. This does not refer to healthcare team if you the expiration date of the need more of this medication in the container. medication. NON-VA A medication that came from If this medication someplace other than a VA information is pharmacy. This may be a incorrect or out of prescription from either the VA date, please tell your or non VA providers that was VA healthcare team. filled outside the VA. Or, it may be an sktq-kii-hvpgrmy (OTC), herbal, dietary supplements or sample medication. ON HOLD An active prescription that will Contact your VA not be filled until pharmacy pharmacy when you need resolves the issue. more of this medication. PARKED An active prescription that will Contact your VA not be filled until the patient pharmacy when you need requests it. this medication. PENDING This prescription order has been If you have been sent to the pharmacy for review instructed to start and is not ready yet. this medication now, contact your VA pharmacy. SUSPENDED An active prescription that is Contact your VA not scheduled to be filled yet. pharmacy if you need You should receive it before this medication now. you run out. 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
--- OUTSIDE RECORDS SUMMARY | 2024-06-17 10:49 | XMS_ITS | Encounter Summary ---
Author Name [facility] [place] [facility] [place] [facility] [place] Address [address] [place] [address] Care Team Providers Care Figure Clerk Name Role Phone DILAN GARCIA Primary Care Provider Unavail able Insurance Providers: [...] O MEDEX BRONZ E Oct 15, 2008 [id number] CARIE MAE PATIENT ANTHEM BCBS OF [place] (BLUECARD) MEDICARE SUPPLEMEN HUMZA MEDEX BRONZ E Feb 14, 2022 [id number] CARIE MAE PATIENT [place] SUPPLEMEN HUMZA MEDEX BRONZ E Feb 14, 2022 [id number] CARIE MAE PATIENT [place] SUPPLEMEN HUMZA MEDEX BRONZ E Oct 15, 2008 [id number] CARIE MAE PATIENT [place] SUPPLEMEN HUMZA MEDEX HEARI NG AND Mar 17, 2019 [id number] [phone] CARIE MAE PATIENT MEDICARE (WNR) MEDICARE () PART A Oct 15, 2008 PART A [id number] CARIE MAE PATIENT MEDICARE (WNR) MEDICARE () PART B Oct 15, 2008 PART B [id number] CARIE MAE PATIENT MEDICARE (WNR) MEDICARE () PART A Oct 15, 2008 PART A [id number] [phone] CARIE MAE PATIENT MEDICARE (WNR) MEDICARE (M) PART B Oct 15, 2008 PART B [id number] CARIE MAE PATIENT MEDICARE (WNR) MEDICARE () PART A Oct 15, 2008 PART A [id number] [phone] CARIE MAE PATIENT MEDICARE (WNR) MEDICARE () PART B Oct 15, 2008 PART B [id number] CARIE MAE PATIENT MEDICARE (WNR) MEDICARE () PART A Oct 15, 2008 PART A [id number] CARIE MAE PATIENT MEDICARE (WNR) MEDICARE () PART B Oct 15, 2008 PART B [id number] [phone] CARIE MAE PATIENT Selected Encounter This section includes the information on record at [place] for the Encounter. Date/Time Encounter Type Encounter Description Reason Provider Source May 18, 2024 08:00 AM OFFICE O/P EST MOD 30 MIN PRIMARY CARE/MEDICINE ICD-10-CM G47.30 Sleep apnea, unspecified VANWAGNER,WILL MC F IHE Encounter Template Text not used by [place] Assessments - Encounter Diagnoses This section includes the primary and secondary diagnoses documented for the Encounter. Date/Time Primary/Secondary Diagnosis Diagnosis Name Provider Source May 18, 2024 08:43 AM PRIMARY Sleep apnea, unspecified NAVARRO GARCIA [place] [facility] May 18, 2024 08:43 AM SECONDARY Carcinoma in situ of prostate NAVARRO GARCIA [facility] May 18, 2024 08:43 AM SECONDARY Hypertensive heart disease without heart failure NAVARRO GARCIA [facility] Plan of Treatment: Future Appointments (+ 6 months) and Future Tests (+/- 45 days) The Plan of Treatment section includes future care activities for the patient from all [place] [facility]. This section includes future appointments and future orders which are active, pending or scheduled. Future Appointments This section includes appointments that were scheduled to occur 6 months from the date of the Encounter, up to a maximum of 20 appointments. The data comes from all [place] treatment facilities. Appointment Date/Time Appointment Type Appointme nt Facility Name May 26, 2024 02:30 PM AMBULATORY - REHAB MEDICIN E [facility] Jun 03, 2024 10:00 AM AMBULATORY - MEDICINE [facility] Jun 17, 2024 10:30 AM AMBULATORY - MEDICINE [facility] Sep 28, 2024 08:30 AM AMBULATORY - MEDICINE [facility] Active, Pending, and Scheduled Orders This section includes a listing of several types of active, pending, and scheduled orders, including clinic medications orders, diagnostic test orders, procedure orders and consult orders; where the start date of the order is 45 days before the date of the Encounter or 45 days after the date of theEncounter. The data comes from all [facility]. Test Date/Time Test Type Test Details Facility Name Apr 21, 2024 01:04 PM Consult Order COMMUNITY CARE-UROLOGY Cons Senior Planner's Choice [facility] Lab Results: +/- 30 days of the encounter This section includes the Chemistry and Hematology Lab Results on record with [place] for the patient. Radiology Reports and Pathology Reports are provided separately, in subsequent sections. Lab Results This section contains the Chemistry/Hematology Results that were resulted 30 days before or 30 daysafter the date of the Encounter. Date/Time Source Result Type Result - Unit Interpretation Reference Range Comment May 04, 2024 07:49 AM [facility] LIPID PANEL FASTING Specimen Type: SERUM No comment entered. Ordering Provider: NAVARRO GARCIA Report Released Date/Time: Nov 11, 2023 11:31 AM Reporting Lab: [facility] [address] [facility] [address] Performing Lab: [facility] [address] [facility] [address] CHOLESTEROL 192 mg/dL TRIGLYCERIDE 98 mg/dL 0-150 LDL calculated 130 mg/dL H 0-129 CHOL/HDL 4.6 HDL CHOLESTEROL 42 mg/dL 40-60 May 04, 2024 07:49 AM [facility] PSA Specimen Type: SERUM No comment entered. Ordering Provider: NAVARRO GARCIA Report Released Date/Time: Nov 11, 2023 11:31 AM Reporting Lab: [facility] [address] [facility] [address] Performing Lab: [facility] [address] [address] PSA 4.75 ng/mL H 0.00-4.00 May 04, 2024 07:49 AM [facility] LIVER FUNCTION Specimen Type: SERUM No comment entered. Ordering Provider: NAVARRO GARCIA Report Released Date/Time: Nov 11, 2023 11:31 AM Reporting Lab: [facility] [address] [address] Performing Lab: [address] [address] PROTEIN,TOTAL 6.9 g/dL 6.0-8.3 ALBUMIN 3.8 g/dL 3.5-5.0 ALKALINE PHOSPHATASE 44 U/L 40-150 AST 16 U/L 5-34 ALT 16 U/L BILIRUBIN, TOTAL 0.3 mg/dL 0.2-1.2 May 04, 2024 07:49 AM [facility] BASIC METABOLIC PANEL (fasting) Specimen Type: SERUM No comment entered. Ordering Provider: NAVARRO GARCIA Report Released Date/Time: Nov 11, 2023 11:31 AM Reporting Lab: [facility] [address] [address] Performing Lab: [place] [facility] [place] [facility] [address] [facility] [address] UREA NITROGEN 18 mg/dL 7-25 GLUCOSE 100 [...] Height Weight Body Mass Index Source May 18, 2024 07:58 AM 98.2 74 92/54 16 97 0 69.5 211 31 [place] [facility] Social History: Smoking Status (Most current) and Tobacco Use (All prior to encounter date) This section includes the most current, and the historical, smoking and tobacco- related health factors from the [place] facility where the Encounter took place. Current Smoking Status This section includes the most current smoking, or tobacco-related health factor, from the [place] facility where the Encounter took place. Date/Time Current Smoking Status Comment Facil ity Nov 11, 2023 11:00 AM VA-TOBACCO NEVER USED [facility] Tobacco Use History This section includes a history of the smoking, or tobacco-related health factors, that were collected on or before the date of the Encounter. The data comes from the [place] facility where the Encounter took place. Date/Time Smoking Status/Tobacco Use Comment F acility Sep 27, 2022 10:30 AM VA-TOBACCO FORMER USER [place] [facility] [place] [facility] Sep 27, 2022 10:30 AM VA-TOBACCO QUIT 15 YRS OR MORE [place] [facility] [place] [facility] Aug 30, 2021 09:20 AM VA-TOBACCO FORMER USER [place] [facility] [place] [facility] Aug 30, 2021 09:20 AM VA-TOBACCO QUIT 15 YRS OR MORE [place] [facility] [place] [facility] August 07, 2020 09:00 AM VA-TOBACCO FORMER USER [place] [facility] [place] [facility] August 07, 2020 09:00 AM VA-TOBACCO QUIT 15 YRS OR MORE [facility] [place] [facility] Jul 12, 2019 10:05 AM VA-TOBACCO FORMER USER [place] [facility] [place] [facility] Jul 12, 2019 10:05 AM VA-TOBACCO QUIT 15 YRS OR MORE [facility] Jul 03, 2018 10:51 AM VA-TOBACCO FORMER USER [facility] Jul 03, 2018 10:51 AM VA-TOBACCO QUIT 5 TO < 15 YRS [place] [facility] [place] [facility] Sep 01, 2017 10:25 AM QUIT TOBACCO USE > 7 YEARS AGO [facility] Aug 29, 2016 09:22 AM QUIT TOBACCO USE > 7 YEARS AGO [facility] August 15, 2015 02:32 PM QUIT TOBACCO USE > 7 YEARS AGO [facility] Advance Directives: All historical and current Section Date Range: From patient's date of to the date document was created. This section includes ALL of a patient's completed or amended [place] Advance and Rescinded Directives. The entries below indicate that a directive exists for the patient, but an actual copy is not included with this document. The data comes from all [place] facilities. Date Advance Directives Provider Source Dec 17, 2018 ADVANCE DIRECTIVE LIZ HERNANDEZ [facility] May 30, 2017 ADVANCE DIRECTIVE VICTOR MANUEL PAINTING [place] [facility] Dec 25, 2005 ADVANCE DIRECTIVE IRENA OSEIZ-TURNER [facility] Radiology Reports: +/- 30 days of the [...] the Encounter. The data comes from all [place] treatment facilities. Date/Time Radiology Report Provider Source May 26, 2024 03:05 PM FLUOROSCOPIC ARIC NCE OF NEEDLE/SPINE: CARIE MAE [id number] -[id number] M Exm Date: MAY 26, 2024@15:05 Req Phys: LISA LOPEZ ROBSON Pat Loc: [facility] MED [facility] MIMA GUDINO MD (Req' Img Loc: [facility]/BUILDING 1 Service: Unknown [facility] [place] [address] (Case [id number] COMPLETE) FLUOROSCOPIC GUIDANCE OF NEEDLE/S(RAD Detailed) CPT:99922 Reason for Study: transforaminal epidural steroid injection Clinical History: Report Status: Verified Date Reported: MAY 26, 2024 Date Verified: MAY 26, 2024 Beaming Inspector E-Sig:/ES/JOSE BEJARANO JR Report: Study: Pain injection [...] Primary Interpreting Staff: JOSE BEJARANO JR, Radiologist (Beaming Inspector) /JOSE MOORE JR [facility] Encounter Notes: All associated encounter notes This section contains the clinical notes associated to the Encounter. Date/Time Encounter Note(s) Provider Source May 18, 2024 08:39 AM PHYSICIAN MEDIA RELATIONS MANAGER NOTE: LOCAL TITLE: PA NOTE STANDARD TITLE: PHYSICIAN MEDIA RELATIONS MANAGER NOTE DATE OF NOTE: MAY 18, 2024@08:39 ENTRY DATE: MAY 18, 2024@08:39:47 AUTHOR: DILAN GARCIA EXP COSIGNER: URGENCY: STATUS: COMPLETED CC/HPI/A/P: 78 year old MALE here in follow-up for; With MRS Prostate cancer,psa increase noted. seeing [facility] urology [facility] in [facility] and Onc in [facility]. htn, admits to some fatigue. decrease lisinopril from 20mg bid to 20mg once daily. osteroporosis, vit D graphed. Add vit d 1000 units salo to his calcium tabs, check at next. maite, tried his 's FFM, didn't like it, I ask him to work with our RTs. Review of systems: Patient reports no changes from [facility], in meds or any admissions. Active problems - Computerized Problem List is the source for the followin. Sleep apnoea 2. Long-term current use of anticoagulant 3. AF- Atrial Fibrillation ([facility] [id number]) 4. Cardiac pacemaker in situ [employer] Product ICM model M301 serial [id number] may,. 5. Hyperlipidemia 6. Open Angle Glaucoma 7. Optic Neuropathy, Ischemic 8. Personal History of Colonic Polyps Neg colonsocpy 08/31/07 Dr Robertson 9. Pain in joint involving shoulder region 10. Gastroesophageal Reflux Disorder EGD 08/31/07 Dr Robertson Negative 11. Obesity 12. Osteoarthrosis, unspecified whether generalized or localized, involving unsp Left knee replacement 04, 13. Benign essential hypertension (SNOMED CT 9210941) 01/20 Stress ECHO negative 04/22 Spect EF 55% 14. Psoriasis 15. Herniated Disc L4-5 16. Prostate cancer (SNOMED CT [id number]) 02; T2anx sulaiman 4/4, psa 13.5 lupron 02, seed brachytherapy implant 09/15, xrt ext beam08/16 metastatic prostate ca, on ADT/Zytiga s/p bilaterally orchiectomy on 09/28/[address] Santos SERVICE CONNECTED % - NONE FOUND [facility] and Non VA meds were reconciled with the patient who left with a corrected copy. See medication page for details. Active and Recently Outpatient Medications (excluding Supplies): Active Outpatient Medications Status 1) APIXABAN [...] ACTIVE Active Non-VA Medications Status 1) Non-VA VITAMIN D3 (CHOLECALCIFEROL) TAB BY MOUTH ACTIVE 10 Total Medications 98.2 F [36.8 C] (05/18/2024 07:58) 74 (05/18/2024 07:58) 16 (05/18/2024 07:58) 92/54 (05/18/2024 07:58) 0 (05/18/2024 07:58) 69.5 in [176.5 cm] (05/18/2024 07:58) 211 lb [95.71 kg] (05/18/2024 07:58) BMI: 30.8 Neuro: Alert and oriented times three, grossly nonfocal, nasolabial folds intact. Recent labs reviewed with patient today:yes /es/ Dilan Garcia PA-C STAFF PHYSICIAN MEDIA RELATIONS MANAGER Signed: 05/18/2024 08:43 DILAN GARCIA [place] [facility] [place] [facility] May 18, 2024 08:01 AM PREVENTIVE MEDICINE NURSING NOTE: LOCAL TITLE: CLINICAL REMINDERS/NURSING STANDARD TITLE: PREVENTIVE MEDICINE NURSING NOTE DATE OF NOTE: MAY 18, 2024@08:01 ENTRY DATE: MAY 18, 2024@08:02:05 AUTHOR: JJ MACIEL EXP COSIGNER: URGENCY: STATUS: COMPLETED CLINICAL REMINDERS/NURSING Has ADDENDA Influenza Immunization: The patient has received the seasonal influenza vaccine for the current season at another location. Documented: INFLUENZA, UNSPECIFIED FORMULATION Historical Date Administered: Dec 19, 2023 Series: Booster Outside Location: Outside Healthcare Provider Information Source: FROM OTHER PROVIDER /es/ JJ MACIEL LPN Signed: 05/18/2024 08:04 05/18/2024 ADDENDUM STATUS: COMPLETED RSV Immunization: Record prior RSV Vaccine (historical) Patient received a prior dose of Pfizer RSV vaccine. Documented: RSV, BIVALENT, PROTEIN SUBUNIT RSVPREF, DILUENT RECONSTITUTED, 0.5 ML, PF Historical Date Administered: Jan 09, 2024 Series: Series 1 Lot: [id number] Exp Date: Unknown Outside Location: Outside Healthcare Provider Information Source: FROM OTHER PROVIDER Tdap Immunization: Td/Tdap given previously - written records available The patient has previously received the Tetanus, Diphtheria, Pertussis vaccine (Tdap). Documented: TDAP Historical Date Administered: Jan 09, 2024 Series: Booster Natural Resource Specialist: [employer] Lot: [id number] Exp Date: Unknown Outside Location: Outside Healthcare Provider Information Source: FROM OTHER PROVIDER COVID-19 Immunization: Patient received a prior dose of the Moderna Monovalent vaccine. Documented: COVID-19 (MODERNA), MRNA, LNP-S, PF, 50 MCG/0.5 ML (AGES 12+ YEARS) Historical Date Administered: Jan 09, 2024 Series: Series 1 Natural Resource Specialist: [employer] Outside Location: Outside Healthcare Provider Information Source: FROM OTHER PROVIDER /es/ JJ MACIEL LPN Signed: 05/18/2024 11:44 [facility]
--- OUTSIDE RECORDS SUMMARY | 2024-06-17 10:49 | XMS_ITS | Encounter Summary ---
Author Name [facility] Address [address] [place] [address] Care Team Providers Care [employer] General Sales Manager Name Role Phone DILAN GARCIA Primary Care [...] O MEDEX BRONZ E Oct 15, 2008 [id number] CARIE MAE PATIENT ANTHEM BCBS OF [place] (BLUECARD) MEDICARE SUPPLEMEN HUMZA MEDEX BRONZ E Feb 14, 2022 [id number] CARIE MAE PATIENT [place] SUPP[place]UM[place] MEDEX BRONZ E Feb 14, 2022 [id number] CARIE MAE [place] MEDEX BRONZ E Oct 15, 2008 [id number] CARIE MAE PATIENT BCBS OF [place] MEDICARE SUPPLEMEN HUMZA MEDEX HEARI NG AND Mar 17, 2019 [id number] CARIE MAE PATIENT MEDICARE (WNR) MEDICARE (M) PART A Oct 15, 2008 PART A [id number] CARIE MAE PATIENT MEDICARE (WNR) MEDICARE (M) PART B Oct 15, 2008 PART B [id number] CARIE MAE PATIENT MEDICARE (WNR) MEDICARE (M) PART A Oct 15, 2008 PART A [id number] CARIE MAE PATIENT MEDICARE (WNR) MEDICARE (M) PART B Oct 15, 2008 PART B [id number] [phone] CARIE MAE PATIENT MEDICARE (WNR) MEDICARE (M) PART A Oct 15, 2008 PART A [id number] [phone] CARIE MAE PATIENT MEDICARE (WNR) MEDICARE (M) PART B Oct 15, 2008 PART B [id number] [phone] CARIE MAE PATIENT MEDICARE (WNR) MEDICARE (M) PART A Oct 15, 2008 PART A [id number] CARIE MAE PATIENT MEDICARE (WNR) MEDICARE (M) PART B Oct 15, 2008 PART B [id number] CARIE MAE PATIENT Selected Encounter This section includes the information on record at [place] for the Encounter. Date/Time Encounter Type Encounter Description Reason Provider Source Jun 03, 2024 10:00 AM OFF/OP EST JULY X REQ PHY/QHP PRIMARY CARE/MEDICINE ICD-10-CM I11.9 Hypertensive heart disease without heart failure KELSY ZHOU IHE Encounter Template Text not used by ME Assessments - Encounter Diagnoses This section includes the primary and secondary diagnoses documented for the Encounter. Date/Time Primary/Secondary Diagnosis Diagnosis Name Provider Source Jun 03, 2024 10:04 AM PRIMARY Hypertensive heart disease without heart failure KELSY ZHOU [facility] [place] [facility] Plan of Treatment: Future Appointments (+ 6 months) and Future Tests (+/- 45 days) The Plan of Treatment section includes future care activities for the patient from all [facility] This section includes future appointments and future orders which are active, pending or scheduled. Future Appointments This section includes appointments that were scheduled to occur 6 months from the date of the Encounter, up to a maximum of 20 appointments. The data comes from all [facility] facilities. Appointment Date/Time Appointment Type Appointme nt Facility Name Jun 17, 2024 10:30 AM AMBULATORY - MEDICINE [facility] Sep 28, 2024 08:30 AM AMBULATORY - MEDICINE [facility] Active, Pending, and Scheduled Orders This section includes a listing of several types of active, pending, and scheduled orders, including clinic medications orders, diagnostic test orders, procedure orders and consult orders; where the start date of the order is 45 days before the date of the Encounter or 45 days after the date of theEncounter. The data comes from all [facility]. Test Date/Time Test Type Test Details Facility Name Apr 21, 2024 01:04 PM Consult Order COMMUNITY CARE-UROLOGY Cons [employer] [facility] Vital Signs: All taken on the encounter date This section contains inpatient and outpatient Vital Signs collected on the date of the Encounter. Date/Time Temperature Pulse Blood Pressure Respiratory Rate SP02 Pain Height Weight Body Mass Index Source Jun 03, 2024 10:05 AM 110/70 [facility] Jun 03, 2024 10:05 AM 67 131/65 [facility] Social History: Smoking Status (Most current) and Tobacco Use (All prior to encounter date) This section includes the most current, and the historical, smoking and tobacco- related health factors from the [place] facility where the Encounter took place. Current Smoking Status This section includes the most current smoking, or tobacco-related health factor, from the [place] facility where the Encounter took place. Date/Time Current Smoking Status Comment Leona weiss Nov 11, 2023 11:00 AM ME-TOBACCO NEVER USED [facility] Tobacco Use History This section includes a history of the smoking, or tobacco-related health factors, that were collected on or before the date of the Encounter. The data comes from the [place] facility where the Encounter took place. Date/Time Smoking Status/Tobacco Use Comment F acility Sep 27, 2022 10:30 AM VA-TOBACCO FORMER USER [facility] [place] [facility] Sep 27, 2022 10:30 AM VA-TOBACCO QUIT 15 YRS OR MORE [facility] [place] [facility] Aug 30, 2021 09:20 AM VA-TOBACCO FORMER USER [facility] [place] [facility] Aug 30, 2021 09:20 AM VA-TOBACCO QUIT 15 YRS OR MORE [facility] [place] [facility] August 07, 2020 09:00 AM VA-TOBACCO FORMER USER [facility] [place] [facility] August 07, 2020 09:00 AM VA-TOBACCO QUIT 15 YRS OR MORE [facility] [place] [facility] Jul 12, 2019 10:05 AM VA-TOBACCO FORMER USER [facility] [place] [facility] Jul 12, 2019 10:05 AM VA-TOBACCO QUIT 15 YRS OR MORE [facility] [place] [facility] Jul 03, 2018 10:51 AM VA-TOBACCO FORMER USER [facility] [place] [facility] Jul 03, 2018 10:51 AM VA-TOBACCO QUIT 5 TO < 15 YRS [facility] [place] [facility] Sep 01, 2017 10:25 AM QUIT TOBACCO USE > 7 YEARS AGO [facility] [place] [facility] Aug 29, 2016 09:22 AM QUIT TOBACCO USE > 7 YEARS AGO [facility] [place] [facility] August 15, 2015 02:32 PM QUIT TOBACCO USE > 7 YEARS AGO [facility] [place] [facility] Advance Directives: All historical and current Section Date Range: From patient's date of to the date document was created. This section includes ALL of a patient's completed or amended [place] Advance and Rescinded Directives. The entries below indicate that a directive exists for the patient, but an actual copy is not included with this document. The data comes from all [place] facilities. Date Advance Directives Provider Source Dec 17, 2018 ADVANCE DIRECTIVE LIZ HERNANDEZ [facility] [place] [facility] May 30, 2017 ADVANCE DIRECTIVE VICTOR MANUEL PAINTING [facility] Dec 25, 2005 ADVANCE DIRECTIVE IRENA OSEI [...] the Encounter. The data comes from all [place] treatment facilities. Date/Time Radiology Report Provider Source May 26, 2024 03:05 PM FLUOROSCOPIC ARIC NCE OF NEEDLE/SPINE: FAUSTINO MAEIN Ezra [id number] [id number] M Ex Date: MAY 26, 2024@15:05 Req Phys: LISA LOPEZ THI Pat Loc: [facility] TERESE ECHEVARRIA (Req' Img Loc: [facility]/BUILDING 1 Service: [place] [address] (Case [id number] COMPLETE) FLUOROSCOPIC GUIDANCE OF NEEDLE/S(RAD Detailed) CPT:70824 Reason for Study: transforaminal epidural steroid injection Clinical History: Report Status: Verified Date Reported: MAY 26, 2024 Date Verified: MAY 26, 2024 Rn Imcu E-Sig:/ES/JOSE BEJARANO JR Report: Study: Pain injection [...] Primary Interpreting Staff: JOSE BEJARANO JR, Radiologist (Rn Imcu) /JOSE MOORE JR [facility] Encounter Notes: All associated encounter notes This section contains the clinical notes associated to the Encounter. Date/Time Encounter Note(s) Provider Source Jun 03, 2024 09:52 AM PRIMARY CARE OUTPA TIENT NOTE: LOCAL TITLE: AMBULATORY/OUTPATIENT CARE NOTE STANDARD TITLE: PRIMARY CARE OUTPATIENT NOTE DATE OF NOTE: JUN 03, 2024@09:52 ENTRY DATE: JUN 03, 2024@09:52:40 AUTHOR: YANY ZHOU EXP COSIGNER: URGENCY: STATUS: COMPLETED Blood pressure check: F: Nursing Clinic D: [place] here for blood pressure check per PCP Dilan Garcia. Vet has history of hypertension. Presently he is taking this medication for elevated B/P: LISINOPRIL TAB 20MG TAKE ONE TABLET BY MOUTH ONCE DAILY HYDROCHLOROTHIAZIDE 12.5MG CAP,ORAL 12.5MG TAKE 1 CAPSULE BY MOUTH EVERY MORNING Reports he took medications as wordered this morning. At home readings are mostly below 120/66. Next appt with PCP is on September 28, 2024. A: B/P today is 131/65 in his right arm and 110/70 in his left arm (manual cuff used with arm elevated at heart level) Pulse is 67. Will review results with pcp. R: tolerated well and left area ab kalen. /juliann/ YANY ZHOU RN REGISTERED NURSE Signed: 06/03/2024 10:05 Receipt Acknowledged By: 06/03/2024 12:41 /juliann/ Dilan Garcia PA-C STAFF PHYSICIAN SANITATION OFFICER YANY ZHOU [facility]
--- OUTSIDE RECORDS SUMMARY | 2024-06-17 10:49 | XMS_ITS | Encounter Summary ---
Author Name [facility] [place] [facility] [place] Address [address] [place] [address] Care Team Providers Care Adjunct Professor Of [place]. History Name Role Phone DILAN LOPEZ Primary Care [...] O MEDEX BRONZ E Oct 15, 2008 [id number] CAIRE MAE PATIENT ANTHEM BCBS OF [place] (BLUECARD) MEDICARE SUPPLEMEN HUMZA MEDEX BRONZ E Feb 14, 2022 [id number] CARIE MAE PATIENT [place] MED[place] SUPPLEMEN HUMZA MEDEX BRONZ E Feb 14, 2022 [id number] CARIE MAE PATIENT [place] SUPPLEMEN [place]UM[place] MEDEX BRONZ E Oct 15, 2008 [id number] CARIE MAE PATIENT [place] MEDICARE SUPPLEMEN HUMZA MEDEX HEARI NG AND Mar 17, 2019 [id number] [phone] CARIE MAE PATIENT MEDICARE (WNR) MEDICARE (M) PART A Oct 15, 2008 PART A [id number] CARIE MAE PATIENT MEDICARE (WNR) MEDICARE (M) PART B Oct 15, 2008 PART B [id number] CARIE MAE PATIENT MEDICARE (WNR) MEDICARE (M) PART A Oct 15, 2008 PART A [id number] [phone] CARIE MAE PATIENT MEDICARE (WNR) MEDICARE (M) PART B Oct 15, 2008 PART B [id number] CARIE MAE PATIENT MEDICARE (WNR) MEDICARE (M) PART A Oct 15, 2008 PART A [id number] CARIE MAE PATIENT MEDICARE (WNR) MEDICARE (M) PART B Oct 15, 2008 PART B [id number] CARIE MAE PATIENT MEDICARE (WNR) MEDICARE (M) PART A Oct 15, 2008 PART A [id number] CARIE MAE PATIENT MEDICARE (WNR) MEDICARE (M) PART B Oct 15, 2008 PART B [id number] CARIE MAE PATIENT Selected Encounter This section includes the information on record at [place] for the Encounter. Date/Time Encounter Type Encounter Description Reason Provider Source Apr 14, 2024 09:00 AM OFFICE O/P EST HI 40 MIN PM&RS PHYSICIAN ICD-10-CM M48.07 Spinal stenosis, lumbosacral region [facility] En[facility] Template Text not used by [place] Assessments - Encounter Diagnoses This section includes the primary and secondary diagnoses documented for the Encounter. Date/Time Primary/Secondary Diagnosis Diagnosis Name Provider Source Apr 14, 2024 09:51 AM PRIMARY Spinal stenosis, lumbosacral region LISA LOPEZONG [facility] [place] [facility] Apr 14, 2024 09:51 AM SECONDARY Other low back pain LISA LOPEZ [facility] [place] [facility] Plan of Treatment: Future Appointments (+ 6 months) and Future Tests (+/- 45 days) The Plan of Treatment section includes future care activities for the [facility] [place] [facility] This section includes future appointments and future orders which are active, pending or scheduled. Future Appointments This section includes appointments that were scheduled to occur 6 months from the date of the Encounter, up to a maximum of 20 appointments. The data comes from all [facility]. Appointment Date/Time Appointment Type Appointme nt Facility Name Apr 19, 2024 09:00 AM AM[place]ULATORY [place]ICINE [place] [facility] [place] [facility] Apr 21, 2024 10:00 AM [place] [facility] [place] [facility] May 14, 2024 01:30 PM AMBUL[place]ORY MEDICINE [place] [facility] [place] [facility] May 18, 2024 08:00 AM AM[place]ORY [place] [facility] [place] [facility] May 26, 2024 02:30 PM [facility] [place] [facility] Jun 03, 2024 10:00 AM AMBULATORY - MEDICINE [facility] [place] [facility] Jun 17, 2024 10:30 AM [place]ORY [place]INE [place] [facility] [place] [facility] Sep 28, 2024 08:30 AM AMBULATORY - MEDICINE [facility] Active, Pending, and Scheduled Orders This section includes a listing of several types of active, pending, and scheduled orders, including clinic medications orders, diagnostic test orders, procedure orders and consult orders; where the start date of the order is 45 days before the date of the Encounter or 45 days after the date of theEncounter. The data comes from all [facility]. Test Date/Time Test Type Test Details Facility Name Apr 21, 2024 01:04 PM Consult Order COMMUNITY CARE-UROLOGY Cons Cigar Packer And Shader's Choice [facility] Lab Results: +/- 30 days of the encounter This section includes the Chemistry and Hematology Lab Results on record with [place] for the patient. Radiology Reports and Pathology Reports are provided separately, in subsequent sections. Lab Results This section contains the Chemistry/Hematology Results that were resulted 30 days before or 30 daysafter the date of the Encounter. Date/Time Source Result Type Result - Unit Interpretation Reference Range Comment May 04, 2024 07:49 AM [facility] PSA Specimen Type: SERUM No comment entered. Ordering Provider: NAVARRO LOPEZ Report Released Date/Time: Nov 11, 2023 11:31 AM Reporting Lab: [address] [id number] Performing Lab: [address] [address] PSA 4.75 ng/mL H 0.00-4.00 May 04, 2024 07:49 AM [facility] BASIC METABOLIC PANEL (fasting) Specimen Type: SERUM No comment entered. Ordering Provider: NAVARRO LOPEZ Report Released Date/Time: Nov 11, 2023 11:31 AM Reporting Lab: [address] [address] Performing Lab: [address] [address] UREA NITROGEN 18 mg/dL 7-25 GLUCOSE 100 mg/dL 65-100 SODIUM 137 mmol/L 135-145 POTASSIUM 4.8 mmol/L 3.5-5.0 CHLORIDE 104 mmol/L 100-110 CO2 25 meq/L 20-30 CREATININE, Serum 0.97 mg/dL 0.50-1.40 eGFR(CKD-EPI 2020) 78 mL/min >60 May 04, 2024 07:49 AM [facility] LIVER FUNCTION Specimen Type: SERUM No comment entered. Ordering Provider: NAVARRO LOPEZ Report Released Date/Time: Nov 11, 2023 11:31 AM Reporting Lab: [address] [address] Performing Lab: [address] [address] PROTEIN,TOTAL 6.9 g/dL 6.0-8.3 ALBUMIN 3.8 g/dL 3.5-5.0 ALKALINE PHOSPHATASE 44 U/L 40-150 AST 16 U/L 5-34 ALT 16 U/L BILIRUBIN, TOTAL 0.3 mg/dL 0.2-1.2 May 04, 2024 07:49 AM [facility] LIPID PANEL FASTING Specimen Type: SERUM No comment entered. Ordering Provider: NAVARRO LOPEZ Report Released Date/Time: Nov 11, 2023 11:31 AM Reporting Lab: [address] [address] Performing Lab: [address] [address] CHOLESTEROL 192 mg/dL TRIGLYCERIDE 98 mg/dL 0-150 LDL calculated 130 mg/dL H 0-129 CHOL/HDL 4.6 HDL CHOLESTEROL 42 mg/dL 40-60 Mar 22, 2024 08:09 AM [facility] MICROSCOPIC AUTOMATED, URINE Specimen Type: URINE Comment: If Glucose = >500 and Ketones are positive, please alert the Physician. Ordering Provider: PEBBLES LION Report Released Date/Time: Mar 22, 2024 07:54 AM Reporting Lab: [facility] [address] [facility] [address] Performing Lab: [address] [address] UA WBC 6-10 /[HPF] H 0-5 UA MUCUS FEW /[LPF] Trace UA RBC 0-2 /[HPF] 0-3 Mar 22, 2024 08:09 AM [facility] URINALYSIS CLEAN CATCH Specimen Type: URINE Comment: If Glucose = >500 and Ketones are positive, please alert the Physician. Ordering Provider: PEBBLES LION Report Released Date/Time: Mar 22, 2024 07:54 AM Reporting Lab: [facility] [address] [facility] [phone] Performing Lab: [address] [address] UA COLOR Light-Yellow Yellow UA APPEARANCE Clear Clear UA GLUCOSE Normal mg/dL Negative UA KETONES NEGATIVE mg/dL Negative UA BLOOD NEGATIVE mg/dL Negative UA PROTEIN 20 mg/dL Negative UA NITRITE NEGATIVE mg/dL Negative UA BILIRUBIN NEGATIVE mg/dL Negative UA SPECIFIC GRAVITY 1.017 1.016-1.022 UA pH 7.0 5.0-9.0 UA UROBILINOGEN Normal mg/dL <2.0 UA LEUKOCYTE SMALL Negative Social History: Smoking Status (Most current) and Tobacco Use (All prior to encounter date) This section includes the most current, and the historical, smoking and tobacco- related health factors from the [place] facility where the Encounter took place. Current Smoking Status This section includes the most current smoking, or tobacco-related health factor, from the [place] facility where the Encounter took place. Date/Time Current Smoking Status Comment Facil ity Nov 11, 2023 11:00 AM VA-TOBACCO NEVER USED [place] [facility] [place] [facility] Tobacco Use History This section includes a history of the smoking, or tobacco-related health factors, that were collected on or before the date of the Encounter. The data comes from the [place] facility where the Encounter took place. Date/Time Smoking Status/Tobacco Use Comment F acility Sep 27, 2022 10:30 AM VA-TOBACCO FORMER USER [facility] [place] [facility] Sep 27, 2022 10:30 AM VA-TOBACCO QUIT 15 YRS OR MORE [facility] [place] [facility] Aug 30, 2021 09:20 AM VA-TOBACCO FORMER USER [facility] [place] [facility] Aug 30, 2021 09:20 AM VA-TOBACCO QUIT 15 YRS OR MORE [facility] [place] [facility] August 07, 2020 09:00 AM VA-TOBACCO FORMER USER [facility] [place] [facility] August 07, 2020 09:00 AM VA-TOBACCO QUIT 15 YRS OR MORE [facility] [place] [facility] Jul 12, 2019 10:05 AM VA-TOBACCO FORMER USER [facility] [place] [facility] Jul 12, 2019 10:05 AM VA-TOBACCO QUIT 15 YRS OR MORE [facility] [place] [facility] Jul 03, 2018 10:51 AM VA-TOBACCO FORMER USER [facility] [place] [facility] Jul 03, 2018 10:51 AM VA-TOBACCO QUIT 5 TO < 15 YRS [facility] [place] [facility] Sep 01, 2017 10:25 AM QUIT TOBACCO USE > 7 YEARS AGO [facility] Aug 29, 2016 09:22 AM QUIT TOBACCO USE > 7 YEARS AGO [facility] August 15, 2015 02:32 PM QUIT TOBACCO USE > 7 YEARS AGO [facility] Advance Directives: All historical and current Section Date Range: From patient's date of to the date document was created. This section includes ALL of a patient's completed or amended [place] Advance and Rescinded Directives. The entries below indicate that a directive exists for the patient, but an actual copy is not included with this document. The data comes from all [place] facilities. Date Advance Directives Provider Source Dec 17, 2018 ADVANCE DIRECTIVE LIZ HERNANDEZ [facility] May 30, 2017 ADVANCE DIRECTIVE VICTOR MANUEL PAINTING [facility] Dec 25, 2005 ADVANCE DIRECTIVE IRENA OSEI [facility] Pathology Reports: +/- 30 days of the encounter Pathology Reports For cases when an order for pathology services may have been completed prior to the date of the Encounter, the report list includes the Pathology Reports that were completed up to 30 days before dateof the Encounter. For cases when an order for pathology services may have been completed after the date of the Encounter, the report list also includes the Pathology Reports that were completed up to30 days after date of the Encounter. The data comes from all [facility] facilities. Date/Time Pathology Report Provider Source Mar 22, 2024 08:09 AM LR MICROBIOLOGY RE PORT: Reporting Lab: [facility] [CLIA# [id number]] [address] [place] [id number] Accession [UID]: [id number] [[id number]] Received: Mar 22, 2024@11:17 Collection sample: URINE CLEAN CATCH Collection date: Mar 22, 2024 08:09 Site/Specimen: URINE Provider: PEBBLES LION Test(s) ordered: URINE CULTURE(MWROX).......... completed: Mar 25, 2024 08:18 * BACTERIOLOGY FINAL REPORT => Mar 25, 2024 08:18 TECH CODE: [id number] Bacteriology Remark(s): <10,000 CFU/ML GRAM POSITIVE (NOT OTHERWISE SPECIFIED) <10,000 CFU/ML MIXED GRAM POSITIVE ROSA No further workup =--=--=--=--=--=--=--=-- =--=--=--=--=--=--=--=-- =--=--=--=--=--=--=--=-- =--=-- Performing Laboratory: Bacteriology Report Performed By: [facility] [CLIA# [id number]] [address] [place] [id number] [facility]EL COHN [place] [facility] Encounter Notes: All associated encounter notes This section contains the clinical notes associated to the Encounter. Date/Time Encounter Note(s) Provider Source Apr 14, 2024 09:32 AM PHYSICAL MEDICINE REHAB PHYSICIAN NOTE: LOCAL TITLE: PM&R FOLLOW-UP STANDARD TITLE: PHYSICAL MEDICINE REHAB PHYSICIAN NOTE DATE OF NOTE: APR 14, 2024@09:32 ENTRY DATE: APR 14, 2024@09:32:46 AUTHOR: LISA LOPEZ EXP COSIGNER: URGENCY: STATUS: COMPLETED CARIE MAE is a 78 y/o MALE who presents today for follow-up of chronic low back pain, scheduled for a left L3-4 transforaminal epidural steroid injection. Patient questions whether he should have the injection done today. The last injection on 12/10/2023 provided 75% pain relief for a few months. However, his PSA sundeep from 0.1 to 0.4 to 2.27 over the last 8 months. He has history of prostate cancer with mets to the spine that was in remission after chemo. He has been doing surveillance PSA checks every 4 months. He has appointment with Dr. Edward at [facility] on Friday to discuss results and intervention. He reports low back pain is tolerable most of the time, worsens only with prolonged standing over 10-20 minutes or prolonged walking at the grocery store. Pain shoots up to a 8-9/10 at that time, alleviated when sitting down. He is aware of modification of activities and sits when pain is severe. On average, he experiences severe pain once a day. Patient endorses subjective weakness of the lower extremities as well as paresthesia in the left lower extremity. Lidocaine patch as needed has been helpful. denies any new symptoms such as fever, chills, night sweats, weight loss, or bowel/bladder changes. PMHx, PSxHx, SocHx: reviewed in chart, unchanged. See prior notes including H&P for details. ALL: CONTRAST MEDIA, BICALUTAMIDE MEDS: Active Outpatient Medications (including Supplies): APIXABAN 5MG TAB TAKE ONE TABLET BY MOUTH TWICE DAILY ACTIVE HYDROCHLOROTHIAZIDE 12.5MG CAP TAKE ONE CAPSULE BY MOUTH ACTIVE EVERY MORNING Indication: FOR HIGH BLOOD PRESSURE LIDOCAINE 5% OINT APPLY SMALL AMOUNT TOPICALLY FOUR TIMES ACTIVE DAILY NEEDED Indication: FOR LEFT SHOULDER PAIN LIDOCAINE 5% PATCH APPLY 1 PATCH TOPICALLY ONCE DAILY ACTIVE NEEDED (LEAVE PATCH ON FOR 12 HOURS, THEN REMOVE PATCH) Indication: FOR LOW BACK PAIN LISINOPRIL 20MG TAB TAKE ONE TABLET BY MOUTH TWICE DAILY ACTIVE (S) TO CONTROL BLOOD PRESSURE Indication: FOR HIGH BLOOD PRESSURE MIRABEGRON 25MG SA TAB TAKE ONE TABLET BY MOUTH ONCE DAILY ACTIVE Non-VA DENOSUMAB (PROLIA) PA-F INJ,SOLN ACTIVE Non-VA VITAMIN D3 (CHOLECALCIFEROL) TAB BY MOUTH ACTIVE 8 Total Medications ROS: Constitutional - Denies fever or chills, night sweats, or unexplained weight loss. GI - Denies nausea, vomiting, or loss of bowel fx/control. - PSA elevation as above. Musculoskeletal - See HPI. Neuro - See HPI. Skin/integuments - Denies rashes, lesions, or skin breakdown in the extremities. All other systems reviewed and are negative. PHYSICAL EXAMINATION: Vitals in chart. GEN: WD, WN. Awake, alert. In NAD. PSYCH: Good eye contact. Appropriate affect and social interaction. EXTREMITIES: No cyanosis or edema of bilateral upper and lower extremities. MUSCULOSKELETAL EXAM: Seated upright. Difficulties standing up from a seated position. Gait: slow jelena, guarded, no gross trendelenburg, no foot drop. Nonspastic. NEURO: AAO x3. Diagnostic Studies: Lumbar MRI performed on 08/02/2023 and [facility] showed moderate spinal canal stenosis at L3-4, along with moderate to severe right and moderate left foraminal stenosis. At L4-5, there is moderate left and mild right foraminal stenosis with narrowing of the left subarticular zone and abutment of the traversing left L5 nerve root. There are also diffuse degenerative changes including facet arthropathy and multilevel severe disc space narrowing with osteophyte formation ASSESSMENT/PLAN: Patient is a 78-year-old gentleman with chronic low back pain secondary to spinal stenosis with left L3 radicular symptoms, imaging localizing moderate stenosis to L3-4, and some degree of lumbar spondylosis. Patient has history of prostate cancer with mets to the spine, and is awaiting Onc re-evaluation for recent PSA elevation. At this time, I recommend holding off spinal injections until further workup by oncology. If Dr. Edward clears us to resume spinal injections, I will schedule patient for a left L3-4 transforaminal epidural steroid injection again as it provided 75% pain relief when last injected November 2023. Continue Lidocaine patch to low back prn, 1-2 patches on for 12 hours on 12 hours off. Refilled lidocaine gel per patient's request. FOLLOW-UP: Patient will contact our clinic with Dr. Edward's recommendations. Repeat epidural injection will be scheduled pending recs. Potential risks and side effects of any medication(s) prescribed today was reviewed with [place]. Patient's questions were answered to the best of my ability and to patient's apparent satisfaction. Vet expressed understanding and agreement with above plan. MDM: 40 minutes which includes reviewing records, evaluating patient, documenting in medical record, educating, counseling and coordinating care. Medication Reconciliation: Outpatient: Has the patient been taking pain medications as documented in the EMLR? YES: The patient has been taking medications as documented in the EMLR. Essential Medication List for Review used to complete this medication reconciliation. INCLUDED IN THIS LIST: Alphabetical list of active outpatient prescriptions [facility] ([facility]) and dispensed from another [place] or [place] facility (remote) as well as [...] or non-VA provider. /juliann/ LISA LOPEZ DO OIL HEAT TECHNICIAN Signed: 04/14/2024 09:52 LISA LOPEZ [facility] [place] [facility]
--- OUTSIDE RECORDS SUMMARY | 2024-06-17 10:49 | XMS_ITS | Encounter Summary ---
Author Name [facility] [place] [facility] [place] [facility] [facility] [place] Address [address] [place] [address] Care Team Providers Care Speed Operator Name Role Phone DILAN GARCIA Primary Care [...] O MEDEX BRONZ E Oct 15, 2008 [id number] CARIE MAE PATIENT ANTHEM BCBS OF [place] (BLUECARD) MEDICARE SUPPLEMEN HUMZA MEDEX BRONZ E Feb 14, 2022 [id number] [phone] CARIE MAE PATIENT [place] SUPPLEMEN HUMZA MEDEX BRONZ E Feb 14, 2022 [id number] CAR[place]UM[place] MEDEX BRONZ E Oct 15, 2008 [id number] CARIE MAE PATIENT BCBS OF [place] MEDICARE SUPPLEMEN HUMZA MEDEX HEARI NG AND Mar 17, 2019 [id number] CARIE MAE PATIENT MEDICARE (WNR) MEDICARE (M) PART A Oct 15, 2008 PART A [id number] [phone] CARIE MAE PATIENT MEDICARE (WNR) MEDICARE (M) PART B Oct 15, 2008 PART B [id number] [phone] CARIE MAE PATIENT MEDICARE (WNR) MEDICARE (M) PART A Oct 15, 2008 PART A [id number] CARIE MAE PATIENT MEDICARE (WNR) MEDICARE (M) PART B Oct 15, 2008 PART B [id number] [phone] CARIE MAE PATIENT MEDICARE (WNR) MEDICARE (M) PART A Oct 15, 2008 PART A [id number] CARIE MAE PATIENT MEDICARE (WNR) MEDICARE (M) PART B Oct 15, 2008 PART B [id number] CARIE MAE PATIENT MEDICARE (WNR) MEDICARE (M) PART A Oct 15, 2008 PART A [id number] CARIE MAE PATIENT MEDICARE (WNR) MEDICARE (M) PART B Oct 15, 2008 PART B [id number] [phone] CARIE MAE PATIENT Selected Encounter This section includes the information on record at [place] for the Encounter. Date/Time Encounter Type Encounter Description Reason Provider Source Apr 21, 2024 10:00 AM OFF/OP EST JULY X REQ PHY/QHP PRIMARY CARE/MEDICINE ICD-10-CM Z71.89 Other specified counseling YAZMIN PARIKH E Encounter Template Text not used by [place] Assessments - Encounter Diagnoses This section includes the primary and secondary diagnoses documented for the Encounter. Date/Time Primary/Secondary Diagnosis Diagnosis Name Provider Source Apr 21, 2024 11:24 AM PRIMARY Other specified counseling YAZMIN PARIKH [place] [facility] [place] [facility] Plan of Treatment: Future Appointments (+ 6 months) and Future Tests (+/- 45 days) The Plan of Treatment section includes future care activities for the patient [facility] [place] [facility] This section includes future appointments and future orders which are active, pending or scheduled. Future Appointments This section includes appointments that were scheduled to occur 6 months from the date of the Encounter, up to a maximum of 20 appointments. The data comes from all [place] treatment [facility]. Appointment Date/Time Appointment Type Appointme nt Facility Name May 14, 2024 01:30 PM AMBULATORY - [facility]INE [facility] May 18, 2024 08:00 AM AMBULATORY - MEDICINE [facility] [place] [facility] May 26, 2024 02:30 PM AMBULATORY - [facility] [place] [facility] Jun 03, 2024 10:00 AM AMBULATORY - MEDICINE [facility] [place] [facility] Jun 17, 2024 10:30 AM AMBULATORY - MEDICINE [facility] Sep 28, 2024 08:30 AM [facility] Active, Pending, and Scheduled Orders This section includes a listing of several types of active, pending, and scheduled orders, including clinic medications orders, diagnostic test orders, procedure orders and consult orders; where the start date of the order is 45 days before the date of the Encounter or 45 days after the date of theEncounter. The data comes from all [facility]. Test Date/Time Test Type Test Details Facility Name Apr 21, 2024 01:04 PM Consult Order COMMUNITY CARE-UROLOGY Cons [employer] Sales Representative's Choice [facility] Lab Results: +/- 30 days of the encounter This section includes the Chemistry and Hematology Lab Results on record with [place] for the patient. Radiology Reports and Pathology Reports are provided separately, in subsequent sections. Lab Results This section contains the Chemistry/Hematology Results that were resulted 30 days before or 30 daysafter the date of the Encounter. Date/Time Source Result Type Result - Unit Interpretation Reference Range Comment May 04, 2024 07:49 AM [facility] PSA Specimen Type: SERUM No comment entered. Ordering Provider: NAVARRO GARCIA Report Released Date/Time: Nov 11, 2023 11:31 AM [facility] [place] [facility] [address] [facility] [address] Performing Lab: [place] [facility] [place] [facility] [address] [facility] [address] PSA 4.75 ng/mL H 0.00-4.00 May 04, 2024 07:49 AM [facility] LIVER FUNCTION Specimen Type: SERUM No comment entered. Ordering Provider: NAVARRO GARCIA Report Released Date/Time: Nov 11, 2023 11:31 AM Reporting Lab[facility] [address] [facility] [address] Performing Lab: [facility] [address] [address] PROTEIN,TOTAL 6.9 g/dL 6.0-8.3 ALBUMIN 3.8 g/dL 3.5-5.0 ALKALINE PHOSPHATASE 44 U/L 40-150 AST 16 U/L 5-34 ALT 16 U/L BILIRUBIN, TOTAL 0.3 mg/dL 0.2-1.2 May 04, 2024 07:49 AM [facility] LIPID PANEL FASTING Specimen Type: SERUM No comment entered. Ordering Provider: NAVARRO GARCIA Report Released Date/Time: Nov 11, 2023 11:31 AM Reporting Lab: [facility] [address] [address] Performing Lab: [facility] [address] [address] CHOLESTEROL 192 mg/dL TRIGLYCERIDE 98 mg/dL 0-150 LDL calculated 130 mg/dL H 0-129 CHOL/HDL 4.6 HDL CHOLESTEROL 42 mg/dL 40-60 May 04, 2024 07:49 AM [facility] BASIC METABOLIC PANEL (fasting) Specimen Type: SERUM No comment entered. Ordering Provider: NAVARRO GARCIA Report Released Date/Time: Nov 11, 2023 11:31 AM Reporting Lab: [facility] [address] [address] Performing Lab: [place] [facility] [place] [facility] [address] [facility] [address] UREA NITROGEN 18 mg/dL 7-25 GLUCOSE 100 [...] and tobacco- related health factors from the [place] facility where the Encounter took place. Current Smoking Status This section includes the most current smoking, or tobacco-related health factor, from the [place] facility where the Encounter took place. Date/Time Current Smoking Status Comment Facil ity Nov 11, 2023 11:00 AM VA-TOBACCO NEVER USED [place] [facility] Tobacco Use History This section includes a history of the smoking, or tobacco-related health factors, that were collected on or before the date of the Encounter. The data comes from the [place] facility where the Encounter took place. Date/Time Smoking Status/Tobacco Use Comment F acility Sep 27, 2022 10:30 AM VA-TOBACCO FORMER USER [place] [facility] [place] [facility] Sep 27, 2022 10:30 AM VA-TOBACCO QUIT 15 YRS OR MORE [place] [facility] [place] [facility] Aug 30, 2021 09:20 AM VA-TOBACCO FORMER USER [place] [facility] [place] [facility] Aug 30, 2021 09:20 AM VA-TOBACCO QUIT 15 YRS OR MORE [place] [facility] [place] [facility] August 07, 2020 09:00 AM VA-TOBACCO FORMER USER [place] [facility] [place] [facility] August 07, 2020 09:00 AM VA-TOBACCO QUIT 15 YRS OR MORE [facility] [place] [facility] Jul 12, 2019 10:05 AM VA-TOBACCO FORMER USER [place] [facility] [place] [facility] Jul 12, 2019 10:05 AM VA-TOBACCO QUIT 15 YRS OR MORE [place] [facility] [place] [facility] Jul 03, 2018 10:51 AM VA-TOBACCO FORMER USER [facility] Jul 03, 2018 10:51 AM VA-TOBACCO QUIT 5 TO < 15 YRS [facility] Sep 01, 2017 10:25 AM QUIT TOBACCO USE > 7 YEARS AGO [facility] Aug 29, 2016 09:22 AM QUIT TOBACCO USE > 7 YEARS AGO [facility] August 15, 2015 02:32 PM QUIT TOBACCO USE > 7 YEARS AGO [facility] Advance Directives: All historical and current Section Date Range: From patient's date of to the date document was created. This section includes ALL of a patient's completed or amended [place] Advance and Rescinded Directives. The entries below indicate that a directive exists for the patient, but an actual copy is not included with this document. The data comes from all [place] facilities. Date Advance Directives Provider Source Dec 17, 2018 ADVANCE DIRECTIVE LIZ HERNANDEZ [facility] May 30, 2017 ADVANCE DIRECTIVE VICTOR MANUEL PAINTING [facility] Dec 25, 2005 ADVANCE DIRECTIVE IRENA OSEI [facility] Pathology Reports: +/- 30 days of the [...] the Encounter. The data comes from all [place] treatment facilities. Date/Time Pathology Report Provider Source Mar 22, 2024 08:09 AM LR MICROBIOLOGY RE PORT: Reporting Lab: [facility] [CLIA# [id number]] [address] [place] [id number] Accession [UID]: [id number] [[id number]] Received: Mar 22, 2024@11:17 Collection sample: URINE CLEAN CATCH Collection date: Mar 22, 2024 08:09 Site/Specimen: URINE Provider: PEBBLES LION Test(s) ordered: URINE CULTURE(MWROX).......... completed: Mar 25, 2024 08:18 * BACTERIOLOGY FINAL REPORT => Mar 25, 2024 08:18 TECH CODE: [id number] Bacteriology Remark(s): <10,000 CFU/ML GRAM POSITIVE (NOT OTHERWISE SPECIFIED) <10,000 CFU/ML MIXED GRAM POSITIVE ROSA No further workup =--=--=--=--=--=--=--=-- =--=--=--=--=--=--=--=-- =--=--=--=--=--=--=--=-- =--=-- Performing Laboratory: Bacteriology Report Performed By: [facility] [CLIA# [id number]] [address] [place] [address] JOEL COHN [facility] Encounter Notes: All associated encounter notes This section contains the clinical notes associated to the Encounter. Date/Time Encounter Note(s) Provider Source Apr 21, 2024 11:17 AM [facility] LOCAL TITLE: AMBULATORY/OUTPATIENT CARE NOTE STANDARD TITLE: PRIMARY CARE OUTPATIENT NOTE DATE OF NOTE: APR 21, 2024@11:17 ENTRY DATE: APR 21, 2024@11:17:49 AUTHOR: OCTAVIA PARIKH COSIGNER: URGENCY: STATUS: COMPLETED F: Requested Consultations D/A: Vet and spouse present to primary care to report new medication prescribed by Community oncologist Dr. Canela with [facility]. Sangeetat reports he has been seeing this provider for several years to care for his prostate CA. He had a visit 04/19/24 where a new medication was prescribed due to an increase in his PSA. Vet states prescription was sent to [place] pharmacy. Unfortunately Vet's [place] consult has . RN entered new consultation HFS by PCP. Will alert Vet when approved to have prescription resent to [place] pharmacy. Vet unable to provide details on medication name and dosing. Vet also states he will be returning for F/U with Dr. Edward 1 week after starting medication. Vet states he will have office note sent to PCP, fax number provided. Vet also requesting consultation for CC urology with Dr. Diana. Consult entered HFS by PCP. R: Will alert PCP to kailey /juliann/ Octavia LUNDBERG RN CNL Primary Care RN Signed: 04/21/2024 11:24 Receipt Acknowledged By: 04/21/2024 13:47 /juliann/ Dilan Garcia PA-C STAFF PHYSICIAN TOMOGRAPHIC TECH OCTAVIA PARIKH [facility]
== END 2024-06-17 11:35 | disposition home or self-care (01) ==
PROVIDERS: PCP Physician Assistant; Visit Provider Urology
DX: M81.8 Other osteoporosis without current pathological fracture (principal); T38.7X5A Adverse effect of androgens and anabolic congeners, initial encounter; C79.82 Secondary malignant neoplasm of genital organs

== ENCOUNTER → 2024-06-17 10:01 | Outpatient (BNVA) | payer MEDICARE, SELFPAY | PROVIDERS: PCP Physician Assistant; Visit Provider Urology | DX: M81.8 Other osteoporosis without current pathological fracture (principal); T38.7X5A Adverse effect of androgens and anabolic congeners, initial encounter; N30.40 Irradiation cystitis without hematuria; C79.82 Secondary malignant neoplasm of genital organs; X58.XXXA Exposure to other specified factors, initial encounter; Y93.9 Activity, unspecified; Y92.9 Unspecified place or not applicable; Y99.9 Unspecified external cause status | CPT/HCPCS: 96372; 99212; J0897 ==

== ENCOUNTER 2024-07-23 10:14 | Emergency (ER) | payer MEDICARE, SELFPAY ==
--- NOTE | ~2024-07-23 | CT_ITS ---
EXAMINATION: CT PELVIS WITH CONTRAST CLINICAL INFORMATION: Bilateral orchiectomy. Right scrotal erythema COMPARISON: None available. TECHNIQUE: Helical scanning was performed with submillimeter collimation through the pelvis with the use of oral contrast and during bolus intravenous injection of 85 mL of Omnipaque 350 intravenous contrast. Sagittal and coronal multiplanar 2-D reconstructions were obtained. This CT examination was performed using dose optimization techniques as appropriate, variously including the following: *Automated exposure control *Adjustment of mA and/or kV according to patient size (this includes techniques or standardized protocols for targeted exams where dose is matched to indication/reason for exam; i.e. extremities or head) *Use of iterative reconstruction technique. DLP: 354 mGy centimeter. FINDINGS: PELVIS: Edema pattern in the right inguinal scrotal region. No peripheral enhancing fluid collection. Bilateral prominent inguinal lymph nodes. Status post prostate gland seen. 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 Gas and fluid-filled prominent small bowel loops. No peripheral enhancing fluid collection in the peritoneal cavity. No gross pneumoperitoneum. No gross lymphadenopathy. Calcified plaques in the distal abdominal aorta and the iliac arteries. . Fluid-filled prominent bladder. OSSEOUS STRUCTURES: Syndesmophyte formation at the sacroiliac joints. Exostosis in the iliac crests. Focal blastic lesion posterior right iliac bone. No acute fracture in the bony pelvis. 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 No abscess. Electronically signed by: Layo De Jesus MD 07/23/2024 01:50 PM EDT
[2024-07-23 10:37] VITALS: BP 150/62; PULSE 79; RESP 18; TEMP 36.8; O2SAT 97; BMI 30.6
--- NOTE | 2024-07-23 11:15 | ED.SKABFB ---
HPI - Skin/Abscess/Foreign Bdy General Chief complaint: Skin/Abscess/Foreign Body Stated complaint: Groin Cist Time Seen by Provider: 07/23/24 11:14 Source: patient Mode of arrival: EMS Limitations: no limitations History of Present Illness ED Provider: Dr. 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 Patient states that he had a pimple on the right groin/scrotal area which got progressively worse over the last week. He states that today the area was red, warm and painful. His PCP is concerned the patient may have a deep abscess in the area and sent the patient to the emergency department for evaluation and CT scan. According to his he was fatigued yesterday and slept all day which is unusual for him. He denied fever, chills, nausea, vomiting, diarrhea. He has noted dysuria and urinary frequency. Patient states that he is having pain but it is 4/10 in his not want pain medications at this time. The patient is on Eliquis in his last dose of Eliquis was yesterday at 17:00 hours. He did not take his Eliquis this morning. Patient is also on Nubeqa(darolutamide-antiandrogen) orally for his prostate cancer. Related Data Home Medications ?Medication ?Instructions ?Recorded ?Confirmed apixaban 2.5 mg tablet (Eliquis) 2.5 mg PO BID 11/13/22 06/18/23 lisinopril 5 mg tablet mg PO 11/13/22 06/18/23 prednisone 5 mg tablet mg PO 11/13/22 06/18/23 hydrochlorothiazide 25 mg tablet 25 mg PO DAILY 12/20/22 06/18/23 Previous Rx's ?Medication ?Instructions ?Recorded mirabegron 25 mg tablet,extended 25 mg PO DAILY 90 days #90 tabs 12/20/22 release 24 hr cephalexin 500 mg capsule 500 mg PO QID 5 days #20 caps 07/23/24 doxycycline hyclate 100 mg tablet 100 mg PO Q12H 5 days #10 tabs 07/23/24 Allergies Allergy/AdvReac Type Severity Reaction Status Date / Time bicalutamide Allergy Mild Unknown Verified 07/23/24 10:40 Iodinated Contrast Media Allergy Mild Unknown Verified 07/23/24 10:40 Review of Systems Review of Systems: Yes all other systems are reviewed and are negative [facility] Past Medical History Medical History Weak urinary stream Nocturia Metastatic malignant neoplasm to prostate Microscopic hematuria Social History Social History Advance Directives: Yes Advance Directives Information Provided: Yes Advance Directives on File: No Physical Exam Vital Signs: Vital Signs: Last Vital Signs Temp 98.3 F 07/23/24 14:53 Pulse 66 07/23/24 14:53 Resp 16 07/23/24 14:53 BP 98/53 L 07/23/24 14:53 Pulse Ox 95 07/23/24 14:53 O2 Del Method Room Air 07/23/24 14:53 BMI result Body Mass Index 30.6 Vital signs revealed an elevated blood pressure of 150/62 otherwise unremarkable Exam: General: Awake, alert in no distress Head: Normocephalic, atraumatic EENT: PERRL, Lids normal, sclera normal, conjunctiva normal, nose normal , ears normal, throat without erythema or exudates Neck: Supple, no adenopathy Lung: breath sounds symmetric, no wheezing, rales or rhonchi Chest: symmetric movement, nontender Heart: regular rate and rhythm, normal S1, S2 no murmurs or rubs Abdomen: soft, non-tender, nondistended, normal bowel sounds Back: no vertebral tenderness, no CVAT : Patient has a erythematous rash to the right inguinal/scrotal area which is indurated with no area of flocculence, slightly warm to the touch (see image below) Extremities: no deformities, moves all extremities symmetrically Neuro: Awake, alert, oriented, normal speech, cranial nerves intact, moves all extremities symmetrically Psych: Pleasant, cooperative Medications Administered Discontinued Medications Generic Name Dose Route Start Last Admin Trade Name Freq PRN Reason Stop Dose Admin Diphenhydramine HCl 25 mg 07/23/24 12:16 07/23/24 12:34 Diphenhydramine Hcl 50 Mg/Ml Vial IVPUSH 07/23/24 12:17 25 mg ONCE ONE Administration Piperacillin Sod/Tazobactam 100 mls @ 200 mls/hr 07/23/24 11:34 07/23/24 12:30 Sod 4.5 gm/ Sodium Chloride IV 07/23/24 12:03 Infused ONCE ONE Infusion Iohexol 100 ml 07/23/24 13:33 07/23/24 13:34 Iohexol 350 Mg/Ml 100 Ml Infus..Btl IV 07/23/24 13:34 85 ml ONCE ONE Administration Methylprednisolone Sodium Succinate 60 mg 07/23/24 12:16 07/23/24 12:33 Methylprednisolone Sod Succ 125 Mg Vial IVPUSH 07/23/24 12:17 60 mg ONCE ONE Administration Medical Decision Making Medical Decision Making [facility] Narrative: 78-year-old male with a history of 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 Patient states that he had a pimple on the right groin/scrotal area which got progressively worse over the last week. He states that today the area was red, warm and painful. His PCP is concerned the patient may have a deep abscess in the area and sent the patient to the emergency department for evaluation and CT scan. Patient complained of dysuria, frequency, 4/10 pain in the area of the rash, fatigue yesterday and stopped all day. Blood pressure was elevated otherwise vital signs were normal. Exam did reveal a rash to the right groin area which was indurated. Differential diagnosis: ?Includes but is not limited to right groin cellulitis, abscess, anemia, electrolyte abnormalities, urinary retention, urinary tract infection, anemia, electrolyte abnormalities Course: 11:43 I did order laboratory evaluation and urinalysis . I will order a CT scan the pelvis with IV contrast to evaluate for deeper infection/abscess. Patient was treated with Zosyn 4.5 g IV. 12:19 According to the patient and his , 30 years ago the patient had an IV contrast study and developed 1 urticarial/hive. Since that time, he has had IV contrast studies with pretreatment with Benadryl and Solu-Medrol. Therefore I ordered Benadryl 25 mg IV and Solu-Medrol 60 mg IV with 45 minutes delay prior to CT scan. 13:31 My independent interpretation patient's laboratory evaluation is as follows: WBC normal 8900. Normocytic anemia with an H&H of 12.6 and 37.6. Low sodium 130. Elevated BUN of 21 with a normal creatinine. Urinalysis positive for leukocyte esterase. Microscopic revealed 0-2 RBCs, 6-10 WBCs, no bacteria 16:34 CT scan of the patient's pelvis and groin did not reveal any abscess, radiologist felt that the findings were more consistent with a contusion however clinically I believe the patient has cellulitis. Patient was given doxycycline 100 mg orally and Keflex 500 mg orally. He was prescribed doxycycline 100 mg q.12 hours x5 days and Keflex 500 mg 4 times a day for 5 days. He was advised to apply a electric heating pad on low to the area for 15 minutes 4 to 6 times a day for the next 2-3 days to help increase the blood flow to the area and help the healing process. He was given printed and verbal instructions discharged home. He is to follow up with his providers at the CT for re-evaluation in 2-3 days. Admission/Observation Consideration of admission/observation: Escalation of care including admission/observation considered (Yes) Lab Data MDM Lab Attestation statement: I reviewed the patient's lab results. 07/23/24 11:23 07/23/24 11:23 Labs: Lab Results 07/23/24 07/23/24 Range/Units 11:23 12:33 WBC 8.9 (4.8-10.8) X10*3/uL RBC 4.46 L D (4.60-5.80) X10*6/uL Hgb 12.6 L D (14.0-18.0) g/dl Hct 37.6 L D (42.0-52.0) % MCV 84.3 (80.0-98.0) fL MCH 28.3 (27.0-33.0) pg MCHC 33.5 (31.0-36.0) g/dl RDW 14.1 (11.0-16.0) % Plt Count 200 D (160-400) X10*3/uL MPV 10.5 (9.4-12.4) fL Immature Gran % (Auto) 0.3 (0.0-0.4) % Neut % (Auto) 65.2 (45-73) % Lymph % (Auto) 18.4 L (20-40) % Edgar % (Auto) 14.9 H (2-11) % Eos % (Auto) 0.9 (0-4) % Baso % (Auto) 0.3 (0-2) % Lymph # (Auto) 1.6 (1.2-4.9) X10*3/uL Edgar # (Auto) 1.3 H (0.1-1.2) X10*3/uL Eos # (Auto) 0.1 (0.0-0.4) X10*3/uL Baso # (Auto) 0.0 (0.0-0.2) X10*3/uL Abs Immat Gran (auto) 0.03 (0.00-0.03) X10*3/uL Absolute Neuts (auto) 5.8 (2.0-8.3) x10*3/uL Absolute Nucleated RBC 0.000 (0.0-0.012) X10*3/uL Nucleated RBC % (auto) 0.0 (0.0-0.2) /100WBC Sodium 130 L (135-145) mmol/L Potassium 4.0 (3.3-5.1) mmol/L Chloride 98 (96-108) mmol/L Carbon Dioxide 27 (22-29) mmol/L Anion Gap 9 L (12-20) BUN 21 H (9-16) mg/dL Creatinine 0.98 (0.5-1.4) mg/dL Estim Creat Clear Calc 70.2 Estimated GFR > 60 Random Glucose 105 (60-115) mg/dL Lactic Acid 0.5 (0.5-2.0) mmol/L Calcium 9.1 (8.4-10.2) mg/dL Total Bilirubin 0.5 (0.0-1.0) mg/dL AST 19 (5-37) U/L ALT 16 (0-40) U/L Alkaline Phosphatase 57 (39-117) U/L Total Protein 7.1 (6.5-8.0) g/dL Albumin 4.0 (3.5-5.0) g/dL Urine Color Yellow Urine Appearance Clear Urine pH 6.0 (5.0-9.0) Ur Specific [place] 1.015 (1.005-1.025) Urine Protein Negative (Neg-Trace) mg/dL Urine Glucose (UA) Negative (Negative) mg/dL Urine Ketones Negative (Negative) mg/dL Urine Blood Negative (Negative) Urine Nitrite Negative (Negative) Ur Leukocyte Esterase Trace H (Negative) Urine RBC 0-2 (0-2) /HPF Urine WBC 6-10 H (0-5) /HPF Ur Squamous Epith Cells 0-2 (0-2) /HPF Urine Bacteria None Seen (None Seen) Hyaline Casts 0-2 (0-2) /LPF Radiology Impression Discussion of test interpretation with radiology: I have reviewed the radiologist's reading. Radiologist Impression: CT pelvis w IV con IMPRESSION: Soft tissue contusion, right inguinal scrotal. No abscess. Electronically signed by: Layo De Jesus MD 07/23/2024 01:50 PM EDT RP Independent Historian Clinical information obtained from an independent historian. History obtained from or confirmed by: Spouse Prescription Management I considered prescription management with: Antibiotic Keflex, doxycycline Chronic Conditions Patient?s care impacted by: Other (Metastatic prostate cancer) Discharge Plan Discharge Clinical Impression: Cellulitis of right groin Patient Disposition: Home, Self-Care Instructions: Cellulitis (ED) Additional Instructions: Your blood work was unremarkable. The CT scan of your pelvis and right groin did not reveal any abscess. Based on your exam I suspect that you have a skin infection. Take doxycycline 100 mg, 1 pill every 12 hours for 7 days Take Keflex (cephalexin) 500 mg pills, 1 pill 3 times a day for 7 days. Use a electric heating pad on low for 15 minutes 4 to 6 times a day for the next 3-4 days to help increase the blood flow to the area and help the healing process. Follow-up with your doctor in 2 days. Please return to the emergency department if your symptoms get worse or if you develop any symptoms that are concerning to you. Please review the radiology CT scan reading with your provider at the CT. CT PELVIS WITH CONTRAST CLINICAL INFORMATION: Bilateral orchiectomy. Right scrotal erythema COMPARISON: None available. TECHNIQUE: Helical scanning was performed with submillimeter collimation through the pelvis with the use of oral contrast and during bolus intravenous injection of 85 mL of Omnipaque 350 intravenous contrast. Sagittal and coronal multiplanar 2-D reconstructions were obtained. This CT examination was performed using dose optimization techniques as appropriate, variously including the following: *Automated exposure control *Adjustment of mA and/or kV according to patient size (this includes techniques or standardized protocols for targeted exams where dose is matched to indication/reason for exam; i.e. extremities or head) *Use of iterative reconstruction technique. DLP: 354 mGy centimeter. FINDINGS: PELVIS: Edema pattern in the right inguinal scrotal region. No peripheral enhancing fluid collection. Bilateral prominent inguinal lymph nodes. Status post prostate gland seen. 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 Gas and fluid-filled prominent small bowel loops. No peripheral enhancing fluid collection in the peritoneal cavity. No gross pneumoperitoneum. No gross lymphadenopathy. Calcified plaques in the distal abdominal aorta and the iliac arteries. . Fluid-filled prominent bladder. OSSEOUS STRUCTURES: Syndesmophyte formation at the sacroiliac joints. Exostosis in the iliac crests. Focal blastic lesion posterior right iliac bone. No acute fracture in the bony pelvis. 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 No abscess. Electronically signed by: Layo De Jesus MD 07/23/2024 01:50 PM EDT Dictated By: Layo Schaffer MD Prescriptions: New cephalexin 500 mg capsule 500 mg PO QID 5 Days Qty: 20 0RF doxycycline hyclate 100 mg tablet 100 mg PO Q12H 5 Days Qty: 10 0RF No Action lisinopril 5 mg tablet PO prednisone 5 mg tablet PO Eliquis 2.5 mg tablet 2.5 mg PO BID hydrochlorothiazide 25 mg tablet 25 mg PO DAILY mirabegron 25 mg tablet extended release 24 hr 25 mg PO DAILY 90 Days Qty: 90 1RF Print Language: Nicaraguan
--- NOTE | 2024-07-23 11:20 | PC.NURSE ---
Patient is a 78 yo male [facility]. 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 Six-month follow-up Recently restarted on Nubeqa by [facility] since rising PSA. Patient alert and oriented. Lungs clear bilat. Respirations even and non-labored. Abdomen soft, non-tender with positive bowel sounds. Positive pedal pulses with LE edema noted. Right scrotal area red, warm and swollen.
[2024-07-23 11:31] LABS: MANUAL DIFF FLAG NO
[2024-07-23 11:37] LABS: Basophils Percent Auto 0.3 % (0-2); Eosinophils Absolute Auto 0.1 X10*3/uL (0.0-0.4); Eosinophils Percent Auto 0.9 % (0-4); Hematocrit 37.6 % (42.0-52.0); Hemoglobin 12.6 g/dl (14.0-18.0); Imm Gran Abs Auto 0.03 X10*3/uL (0.00-0.03); Imm Gran Pct Auto 0.3 % (0.0-0.4); Lymphocytes Absolute Auto 1.6 X10*3/uL (1.2-4.9); Lymphocytes Percent Auto 18.4 % (20-40); Mean Corpuscular HGB Conc 33.5 g/dl (31.0-36.0); Mean Corpuscular Hemoglobin 28.3 pg (27.0-33.0); Mean Corpuscular Volume 84.3 fL (80.0-98.0); Mean Platelet Volume 10.5 fL (9.4-12.4); Monocytes Absolute Auto 1.3 X10*3/uL (0.1-1.2); Monocytes Percent Auto 14.9 % (2-11); Neutrophils Absolute Auto 5.8 x10*3/uL (2.0-8.3); Neutrophils Percent Auto 65.2 % (45-73); Platelet Count 200 X10*3/uL (160-400); Red Blood Count 4.46 X10*6/uL (4.60-5.80); Red Cell Distribution Width 14.1 % (11.0-16.0)
[2024-07-23 11:39] LABS: White Blood Count 8.9 X10*3/uL (4.8-10.8)
--- OUTSIDE RECORDS SUMMARY | 2024-07-23 11:39 | XMS_ITS | Encounter Summary ---
Author Name [facility] [place] [facility] [place] [facility] [facility] [place] Address [address] [place] [address] Care Team Providers Care Human Capital Consultant Name Role Phone DENIS GARCIA Primary Care Provider Unavail able Insurance [...] O MEDEX BRONZ E Oct 15, 2008 [id number] [phone] CARIE MAE PATIENT ANTHEM BCBS OF [place] (BLUECARD) MEDICARE SUPPLEMEN HUMZA MEDEX BRONZ E Feb 14, 2022 [id number] CARIE MAE PATIENT [place] SUPPLEMEN [place]UM[place] MEDEX BRONZ E Feb 14, 2022 [id number] CARIE MAE PATIENT [place] MEDEX BRONZ E Oct 15, 2008 [id number] CARIE MAE PATIENT [place] SUPPLEMEN [place]UM[place] MEDEX HEARI NG AND Mar 17, 2019 [id number] CARIE MAE PATIENT MEDICARE (WNR) MEDICARE (M) PART A Oct 15, 2008 PART A [id number] [phone] CARIE MAE PATIENT MEDICARE (WNR) MEDICARE (M) PART B Oct 15, 2008 PART B [id number] [phone] ACRIE MAE PATIENT MEDICARE (WNR) MEDICARE (M) PART A Oct 15, 2008 PART A [id number] CARIE MAE PATIENT MEDICARE (WNR) MEDICARE (M) PART B Oct 15, 2008 PART B [id number] CARIE MAE PATIENT MEDICARE (WNR) MEDICARE (M) PART A Oct 15, 2008 PART A [id number] CARIE MAE PATIENT MEDICARE (WNR) MEDICARE (M) PART B Oct 15, 2008 PART B [id number] CARIE MAE PATIENT MEDICARE (WNR) MEDICARE (M) PART A Oct 15, 2008 PART A [id number] CARIE MAE PATIENT MEDICARE (WNR) MEDICARE (M) PART B Oct 15, 2008 PART B [id number] CARIE MAE PATIENT Selected Encounter This section includes the [place] on [place] at [place] for the [place]. Date/Time Encounter Type Encounter Description Reason Provider Source July 23, 2024 09:00 AM OFFICE O/P EST LOW 20 MIN PRIMARY CARE/MEDICINE ICD-10-CM K61.1 Rectal abscess [facility] Encounter Template Text not used by [place] Assessments - Encounter Diagnoses This section includes the primary and secondary diagnoses documented for the Encounter. Date/Time Primary/Secondary Diagnosis Diagnosis Name Provider Source July 23, 2024 09:43 AM PRIMARY Rectal abscess [facility] [place] [facility] Plan of Treatment: Future Appointments (+ 6 months) and Future Tests (+/- 45 days) The Plan of Treatment section includes future care activities for the patient from all [place] [facility] This section includes future appointments and future orders which are active, pending or scheduled. Future Appointments This section includes appointments that were scheduled to occur 6 months from the date of the Encounter, up to a maximum of 20 appointments. The data comes from all [place] treatment facilities. Appointment Date/Time Appointment Type Appointme nt Facility Name July 26, 2024 10:00 AM AM[place] [facility] [place] [facility] Sep 28, 2024 08:30 AM AMBULATORY - MEDICINE [facility] [place] [facility] Nov 17, 2024 01:00 PM AMBUL[place]ORY [place] [facility] [place] [facility] Dec 15, 2024 09:30 AM AM[place]ULATORY [place]ICINE [place] [facility] [place] [facility] Dec 15, 2024 10:00 AM AMBULATORY - MEDICINE [facility] [place] [facility] Vital Signs: All taken on the encounter date This section contains inpatient and outpatient Vital Signs collected on the date of the Encounter. Date/Time Temperature Pulse Blood Pressure Respiratory Rate SP02 Pain Height Weight Body Mass Index Source July 23, 2024 09:20 AM 98.4 70 130/80 16 97 213 31 [facility] Social History: Smoking Status (Most current) and Tobacco Use (All prior to encounter date) This section includes the most current, and the historical, smoking and tobacco- related health factors from the [place] facility where the Encounter took place. Current Smoking Status This section includes the most current smoking, or tobacco-related health factor, from the [place] facility where the Encounter took place. Date/Time Current Smoking Status Comment Facil ity Nov 11, 2023 11:00 AM VA-TOBACCO [facility] USED [facility] Tobacco Use History This section includes a history of the smoking, or tobacco-related health factors, that were collected on or before the date of the Encounter. The data comes from the [place] facility where the Encounter took place. Date/Time Smoking Status/Tobacco Use Comment F acility Sep 27, 2022 10:30 AM VA-TOBACCO FORMER USER [place] [facility] Sep 27, 2022 10:30 AM VA-TOBACCO QUIT 15 YRS OR MORE [place] [facility] [place] [facility] Aug 30, 2021 09:20 AM VA-TOBACCO FORMER USER [place] [facility] [place] [facility] Aug 30, 2021 09:20 AM VA-TOBACCO QUIT 15 YRS OR MORE [facility] [place] [facility] August 07, 2020 09:00 AM VA-TOBACCO FORMER USER [facility] [place] [facility] August 07, 2020 09:00 AM VA-TOBACCO QUIT 15 YRS OR MORE [place] [facility] [place] [facility] Jul 12, 2019 10:05 AM VA-TOBACCO FORMER USER [facility] [place] [facility] Jul 12, 2019 10:05 AM VA-TOBACCO QUIT 15 YRS OR MORE [facility] [place] [facility] Jul 03, 2018 10:51 AM VA-TOBACCO FORMER USER [place] [facility] [place] [facility] Jul 03, 2018 10:51 AM VA-TOBACCO QUIT 5 TO < 15 YRS [place] [facility] [place] [facility] Sep 01, 2017 10:25 AM QUIT TOBACCO USE > 7 YEARS AGO [facility] [place] [facility] Aug 29, 2016 09:22 AM QUIT TOBACCO USE > 7 YEARS AGO [place] [facility] [place] [facility] August 15, 2015 02:32 PM QUIT TOBACCO USE > 7 YEARS AGO [place] [facility] [place] [facility] Advance Directives: All historical and current Section Date Range: From patient's date of to the date document was created. This section includes ALL of a patient's completed or amended [place] Advance and Rescinded Directives. The entries below indicate that a directive exists for the patient, but an actual copy is not included with this document. The data comes from all [place] facilities. Date Advance Directives Provider Source Dec 17, 2018 ADVANCE DIRECTIVE LIZ HERNANDEZ [place] [facility] [place] [facility] May 30, 2017 ADVANCE DIRECTIVE VICTOR MANUEL PAINTING [place] [facility] [facility] [place] [facility] Dec 25, 2005 ADVANCE DIRECTIVE IRENA OSEI [facility] Encounter Notes: All associated encounter notes This section contains the clinical notes associated to the Encounter. Date/Time Encounter Note(s) Provider Source July 23, 2024 09:26 AM PHYSICIAN TRADE FACILITATOR NOTE: LOCAL TITLE: PA NOTE STANDARD TITLE: PHYSICIAN TRADE FACILITATOR NOTE DATE OF NOTE: JULY 23, 2024@09:26 ENTRY DATE: JULY 23, 2024@09:27:01 AUTHOR: DENIS GARCIA COSIGNER: URGENCY: STATUS: COMPLETED CC/HPI/A/P: 78 year [...] use of anticoagulant 3. AF- Atrial Fibrillation ([facility] [id number]) 4. Cardiac pacemaker in situ [employer] Product ICM model M301 serial [id number] may,. 5. Hyperlipidemia 6. Open Angle Glaucoma 7. Optic Neuropathy, Ischemic 8. Personal History of Colonic Polyps Neg colonsocpy 08/31/07 Dr Robertson 9. Pain in joint involving shoulder region 10. Gastroesophageal Reflux Disorder EGD 08/31/07 Dr Robertson Negative 11. Obesity 12. Osteoarthrosis, unspecified whether generalized or localized, involving unsp Left knee replacement 04, 13. Benign essential hypertension (SNOMED CT [id number]) 01/20 Stress ECHO negative 04/22 Spect EF 55% 14. Psoriasis 15. Herniated Disc L4-5 16. Prostate cancer (SNOMED CT [id number]) 02; T2anx sulaiman 4/4, psa 13.5 lupron [...] I sent them to the ED at [place] by private car. is driving. She held his Eliguis this am as well. Last meal eggMcMuffin 0600. NOthing per os until 'they bring you a tray'. Please call Mrs later and give her the # to report outside ED care. /juliann/ Denis Garcia PA-C STAFF PHYSICIAN TRADE FACILITATOR Signed: 07/23/2024 09:43 Receipt Acknowledged By: * AWAITING SIGNATURE * YANY ZHOU WILLIAM F [facility] July 23, 2024 09:05 AM PREVENTIVE MEDICINE NURSING NOTE: LOCAL TITLE: CLINICAL REMINDERS/NURSING STANDARD TITLE: PREVENTIVE MEDICINE NURSING NOTE DATE OF NOTE: JULY 23, 2024@09:05 ENTRY DATE: JULY 23, 2024@09:05:11 AUTHOR: JJ MACIEL EXP COSIGNER: URGENCY: STATUS: COMPLETED Homelessness/Food Insecurity Screen: In [...] Not worried about housing near future The reports the following: Within the past 12 months, you worried whether your food would run out before you got money to buy more. Never true Within the past 12 months, the food you bought just didn't last and you didn't have money to get more. Never true /juliann/ JJ MACIEL LPN Signed: 07/23/2024 09:05 VINAY MACIEL [facility]
--- OUTSIDE RECORDS SUMMARY | 2024-07-23 11:39 | XMS_ITS | Encounter Summary ---
Author Name [facility] [place] [facility] [place] Address [address] [place] [address] Care Team Providers Care Materials Recycler Name Role Phone DILAN LOPEZ Primary Care [...] O MEDEX BRONZ E Oct 15, 2008 [id number] CARIE MAE PATIENT ANTHEM BCBS OF [place] (BLUECARD) MEDICARE SUPPLEMEN HUMZA MEDEX BRONZ E Feb 14, 2022 [id number] CARIE MAE [place]UM[place] MEDEX BRONZ E Feb 14, 2022 [id number] [phone] CAR[place] MEDEX BRONZ E Oct 15, 2008 [id number] CARIE MAE PAT[place] SUPPLEMEN [place]UM[place] MEDEX HEARI NG AND Mar 17, 2019 [id number] CARIE MAE PATIENT MEDICARE (WNR) MEDICARE (M) PART A Oct 15, 2008 PART A [id number] CARIE MAE PATIENT MEDICARE (WNR) MEDICARE (M) PART B Oct 15, 2008 PART B [id number] CARIE MAE PATIENT MEDICARE (WNR) MEDICARE (M) PART B Oct 15, 2008 PART B [id number] [phone] CARIE MAE PATIENT MEDICARE (WNR) MEDICARE (M) PART A Oct 15, 2008 PART A [id number] [phone] CARIE MAE PATIENT MEDICARE (WNR) MEDICARE (M) PART A Oct 15, 2008 PART A [id number] [phone] CARIE MAE PATIENT MEDICARE (WNR) MEDICARE (M) PART B Oct 15, 2008 PART B [id number] CARIE MAE PATIENT MEDICARE (WNR) MEDICARE (M) PART A Oct 15, 2008 PART A [id number] CARIE MAE PATIENT MEDICARE (WNR) MEDICARE (M) PART B Oct 15, 2008 PART B [id number] CARIE MAE PATIENT Selected Encounter This section includes the information on record at [place] for the Encounter. Date/Time Encounter Type Encounter Description Reason Provider Source Apr 14, 2024 09:00 AM OFFICE O/P EST HI 40 MIN PM&RS PHYSICIAN ICD-10-CM M48.07 Spinal stenosis, lumbosacral region [facility] En[facility] Template Text not used by [place] Assessments - Encounter Diagnoses This section includes the primary and secondary diagnoses documented for the Encounter. Date/Time Primary/Secondary Diagnosis Diagnosis Name Provider Source Apr 14, 2024 09:51 AM PRIMARY Spinal stenosis, lumbosacral region LISA LOPEZONG [facility] [place] [facility] Apr 14, 2024 09:51 AM SECONDARY Other low back pain LISA LOPEZ [facility] [place] [facility] Plan of Treatment: Future Appointments (+ 6 months) and Future Tests (+/- 45 days) The Plan of Treatment section includes future care activities for the patient from all [place] [facility] This section includes future appointments and future orders which are active, pending or scheduled. Future Appointments This section includes appointments that were scheduled to occur 6 months from the date of the Encounter, up to a maximum of 20 appointments. The data comes from all [facility]. Appointment Date/Time Appointment Type Appointme nt Facility Name Apr 19, 2024 09:00 AM [place] [facility] [place] [facility] Apr 21, 2024 10:00 AM [place] [facility] [place] [facility] May 14, 2024 01:30 PM [place] [facility] [place] [facility] May 18, 2024 08:00 AM [place] [facility] [place] [facility] May 26, 2024 02:30 PM AMBULATORY - [place]ICIN [place] [facility] [place] [facility] Jun 03, 2024 10:00 AM [place] [facility] [place] [facility] Jun 17, 2024 10:30 AM [place] [facility] [place] [facility] Jul 14, 2024 02:00 PM AM[place]UL[place]ORY [place] [facility] [place] [facility] July 23, 2024 09:00 AM [place] [facility] [place] [facility] July 26, 2024 10:00 AM AM[place] - [place] [facility] [place] [facility] Sep 28, 2024 08:30 AM [place] [facility] [place] [facility] Active, Pending, and Scheduled Orders This section includes a listing of several types of active, pending, and scheduled orders, including clinic medications orders, diagnostic test orders, procedure orders and consult orders; where the start date of the order is 45 days before the date of the Encounter or 45 days after the date of theEncounter. The data comes from all [facility]. Test Date/Time Test Type Test Details Facility Name Apr 21, 2024 01:04 PM Consult Order [facility] Cons Sorter Operator's Choice [facility] Lab Results: +/- 30 days of the encounter This section includes the Chemistry and Hematology Lab Results on record with [place] for the patient. Radiology Reports and Pathology Reports are provided separately, in subsequent sections. Lab Results This section contains the Chemistry/Hematology Results that were resulted 30 days before or 30 daysafter the date of the Encounter. Date/Time Source Result Type Result - Unit Interpretation Reference Range Specimen Type Comment May 04, 2024 07:49 AM [facility] PSA SERUM Specimen Type: SERUM No comment entered. Ordering Provider: YORDY LOPEZ Report Released Date/Time: Nov 11, 2023 11:31 AM Reporting Lab: [address] [phone] Performing Lab: [address] [address] PSA 4.75 ng/mL H 0.00-4.00 May 04, 2024 07:49 AM [facility] BASIC METABOLIC PANEL (fasting) SERUM Specime n Type: SERUM No comment entered. Ordering Provider: DILAN LOPEZ Report Released Date/Time: Nov 11, 2023 11:31 AM Reporting Lab: [address] [address] Performing Lab: [address] [address] UREA NITROGEN 18 mg/dL 7-25 GLUCOSE 100 mg/dL 65-100 SODIUM 137 mmol/L 135-145 POTASSIUM 4.8 mmol/L 3.5-5.0 CHLORIDE 104 mmol/L 100-110 CO2 25 meq/L 20-30 CREATININE, Serum 0.97 mg/dL 0.50-1.40 eGFR(CKD-EPI 2020) 78 mL/min >60 May 04, 2024 07:49 AM [facility] LIPID PANEL FASTING SERUM Specimen Type: SERU M No comment entered. Ordering Provider: DILAN LOPEZ Report Released Date/Time: Nov 11, 2023 11:31 AM Reporting Lab: [facility] [address] [address] Performing Lab: [facility] [address] [address] CHOLESTEROL 192 mg/dL TRIGLYCERIDE 98 mg/dL 0-150 LDL calculated 130 mg/dL H 0-129 CHOL/HDL 4.6 HDL CHOLESTEROL 42 mg/dL 40-60 May 04, 2024 07:49 AM [facility] LIVER FUNCTION SERUM Specimen Type: SERUM No comment entered. Ordering Provider: DILAN LOPEZ Report Released Date/Time: Nov 11, 2023 11:31 AM Reporting Lab: [facility] [address] [address] Performing Lab: [address] [address] PROTEIN,TOTAL 6.9 g/dL 6.0-8.3 ALBUMIN 3.8 g/dL 3.5-5.0 ALKALINE PHOSPHATASE 44 U/L 40-150 AST 16 U/L 5-34 ALT 16 U/L BILIRUBIN, TOTAL 0.3 mg/dL 0.2-1.2 Mar 22, 2024 08:09 AM [facility] MICROSCOPIC AUTOMATED, URINE URINE Specimen T ype: URINE Comment: If Glucose = >500 and Ketones are positive, please alert the Physician. Ordering Provider: PEBBLES LION Report Released Date/Time: Mar 22, 2024 07:54 AM Reporting Lab: [facility] [address] [address] Performing Lab: [address] [address] UA WBC 6-10 /[HPF] H 0-5 UA MUCUS FEW /[LPF] Trace UA RBC 0-2 /[HPF] 0-3 Mar 22, 2024 08:09 AM [facility] URINALYSIS CLEAN CATCH URINE Specimen Type: U RINE Comment: If Glucose = >500 and Ketones are positive, please alert the Physician. Ordering Provider: PEBBLES LION Report Released Date/Time: Mar 22, 2024 07:54 AM Reporting [facility] [place] [facility] [address] [address] Performing Lab: [place] [facility] [place] [facility] [address] [address] UA COLOR Light-Yellow Yellow UA APPEARANCE Clear [...] and tobacco- related health factors from the [place] facility where the Encounter took place. Current Smoking Status This section includes the most current smoking, or tobacco-related health factor, from the [place] facility where the Encounter took place. Date/Time Current Smoking Status Comment Leona ity Nov 11, 2023 11:00 AM VA-TOBACCO NEVER USED [facility] Tobacco Use History This section includes a history of the smoking, or tobacco-related health factors, that were collected on or before the date of the Encounter. The data comes from the [place] facility where the Encounter took place. Date/Time Smoking Status/Tobacco Use Comment F acility Sep 27, 2022 10:30 AM VA-TOBACCO FORMER USER [place] [facility] [place] [facility] Sep 27, 2022 10:30 AM VA-TOBACCO QUIT 15 YRS OR MORE [place] [facility] [place] [facility] Aug 30, 2021 09:20 AM VA-TOBACCO FORMER USER [place] [facility] [place] [facility] Aug 30, 2021 09:20 AM VA-TOBACCO QUIT 15 YRS OR MORE [place] [facility] [place] [facility] August 07, 2020 09:00 AM VA-TOBACCO FORMER USER [place] [facility] [place] [facility] August 07, 2020 09:00 AM VA-TOBACCO QUIT 15 YRS OR MORE [place] [facility] [place] [facility] Jul 12, 2019 10:05 AM VA-TOBACCO FORMER USER [facility] Jul 12, 2019 10:05 AM VA-TOBACCO QUIT 15 YRS OR MORE [facility] Jul 03, 2018 10:51 AM VA-TOBACCO FORMER USER [facility] Jul 03, 2018 10:51 AM VA-TOBACCO QUIT 5 TO < 15 YRS [facility] Sep 01, 2017 10:25 AM QUIT TOBACCO USE > 7 YEARS AGO [facility] Aug 29, 2016 09:22 AM QUIT TOBACCO USE > 7 YEARS AGO [facility] August 15, 2015 02:32 PM QUIT TOBACCO USE > 7 YEARS AGO [facility] Advance Directives: All historical and current Section Date Range: From patient's date of to the date document was created. This section includes ALL of a patient's completed or amended [place] Advance and Rescinded Directives. The entries below indicate that a directive exists for the patient, but an actual copy is not included with this document. The data comes from all [place] facilities. Date Advance Directives Provider Source Dec 17, 2018 ADVANCE DIRECTIVE LIZ HERNANDEZ [facility] May 30, 2017 ADVANCE DIRECTIVE VICTOR MANUEL PAINTING [facility] Dec 25, 2005 ADVANCE DIRECTIVE IRENA OSEI [...] the Encounter. The data comes from all [place] treatment facilities. Date/Time Pathology Report Provider Source Mar 22, 2024 08:09 AM LR MICROBIOLOGY RE PORT: Reporting Lab: [facility] [CLIA# [id number]] [address] [place] [id number] Accession [UID]: [id number] [[id number]] Received: Mar 22, 2024@11:17 Collection sample: URINE CLEAN CATCH Collection date: Mar 22, 2024 08:09 Site/Specimen: URINE Provider: PEBBLES LION Test(s) ordered: URINE CULTURE(MWROX).......... completed: Mar 25, 2024 08:18 * BACTERIOLOGY FINAL REPORT => Mar 25, 2024 08:18 TECH CODE: [id number] Bacteriology Remark(s): <10,000 CFU/ML GRAM POSITIVE (NOT OTHERWISE SPECIFIED) <10,000 CFU/ML MIXED GRAM POSITIVE ROSA No further workup =--=--=--=--=--=--=--=-- =--=--=--=--=--=--=--=-- =--=--=--=--=--=--=--=-- =--=-- Performing Laboratory: Bacteriology Report Performed By: [facility] [CLIA# [id number]] [address] [place] [id number] [facility] COHN [place] [facility] Encounter Notes: All associated encounter notes [...] He has appointment with Dr. Edward at [facility] on Friday to discuss results and [...] Studies: Lumbar MRI performed on 08/02/2023 and [facility] showed moderate spinal canal stenosis at [...] any medication(s) prescribed today was reviewed with [place]. Patient's questions were answered to the best [...] of active outpatient prescriptions dispensed from this [place] (local) and dispensed from another [place] or [facility] facility (remote) as well as inpatient orders [...] non-VA provider. 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
--- OUTSIDE RECORDS SUMMARY | 2024-07-23 11:39 | XMS_ITS | Continuity of Care Document ---
Author Name [facility] Organization [facility] Care Team Providers Care Field Sales Representative Name Role Phone [facility] Unavailable Unavailable Problems Combined list of problems [...] Condition -[facility]- Atrial Fibrillation (SCT 29999647) Active Condition [facility] Benign essential hypertension (SNOMED CT 3755473) Active Condition May 26, 2007 Entered By: PATIENCE PEREZ Comment: 01/20 Stress ECHO negative 04/22 Spect EF 55% [facility] Cardiac pacemaker in situ Active Condition August 07, 2020 Entered By: AMMY LOPEZ AM Comment: [facility] Product ICM model M301 serial [id number] May,. [facility] Environmental [...] involving shoulder region (ICD-9-CM 719.41) Active Condition [facility] Prostate cancer (SNOMED CT 963842479) Active Condition Feb 20, 2007 Entered By: PASHA ABEL Comment: 02; T2anx sulaiman 4/4, psa 13.5Jan 2007 Entered By: PASHA ABEL Comment: lupron 02, seed brachytherapy implant 09/15, xrt ext beam08/16Aug 2021 Entered By: SALLIE WHITE Comment: metastatic prostate ca, on ADT/Zytiga s/p bilaterally orchiectomy on 09/28/[address] Santos [facility] Psoriasis Active Condition [...] [facility] Diagnosis: ICD-10-CM K61.1 Rectal abscess Active Diagnosis [facility] [...] Adhesive capsulitis of unspecified shoulder [facility] Diagnosis: ICD-10-CM L03.114 Cellulitis of left upper limb [facility] Diagnosis: ICD-10-CM G47.33 Obstructive sleep apnea (adult) (pediatric) [facility] Diagnosis: ICD-10-CM Z23 Encounter for immunization Active [facility] Diagnosis: ICD-10-CM Z47.89 Encounter for other orthopedic aftercare [facility] Medications Combined list of outpatient medications from Department of Defense and Veterans Affairs facilities.Medications provided include 1) outpatient medications from the last 15 months, and 2) patient-reported medications. Medication Details Route Status Patient Instructions Prescription Expires Prescription Number Last Dispense Date Ordering Provider Order Date Order Qty Source APIXABAN 5MG TAB TAKE ONE TABLET BY MOUTH TWICE DAILY ORAL ACTIVE 08/27/2024 [id number] 5 DILAN LOPEZ 2023 180 [facility] APIXABAN 5MG TAB TAKE ONE TABLET BY MOUTH TWICE DAILY ORAL DISCONT INUED 12/18/2023 [id number] 4 DILAN LOPEZ 2022 180 [facility] CALCIPOTRIE NE 0.005% CREAM,TOP APPLY TO AFFECTED AREA ON SKIN DIRECTED TOPICA L ACTIVE ZEV CORONEL 2005 [facility] CALCIUM 250MG/VITAM IN D 125UNIT TAB TAKE ONE BY MOUTH ONCE DAILY ORAL ACTIVE DILAN LOPEZ 2024 [facility] CARBOXYMETH YLCELLULOSE NA 0.5% SOLN,OPH INSTILL 1 DROP INTO EACH EYE FOUR TIMES A DAY FOR DRY EYE OPHTHA LMIC ACTIVE 05/15/2025 [id number] 5 MUIR,LAC EY J 2024 45 [facility] CARBOXYMETH YLCELLULOSE NA 1% GEL,OPH APPLY 1 DROP INTO EACH EYE FOUR TIMES A DAY FOR DRY EYE OPHTHA LMIC 12/12/2023 [id number] 4 ANA MUIR 2022 45 [facility] CEPHALEXIN 250MG CAP TAKE ONE CAPSULE BY MOUTH FOUR TIMES A DAY FOR INFECTIO N CAUSED BY BACTERIA FOR INFECTIO N ORAL 08/14/2023 [id number] 4 DILAN LOPEZ 2023 56 [facility] CEPHALEXIN 500MG CAP TAKE ONE CAPSULE BY MOUTH EVERY 8 HOURS FOR INFECTIO N CAUSED BY BACTERIA FOR INFECTIO N ORAL DISCONT INUED (EDIT) 04/21/2024 [id number] AG LION 2024 21 [facility] DAROLUTAMID E 300MG TAB TAKE TWO TABLETS BY MOUTH TWICE DAILY ORAL ACTIVE 04/20/2025 [id number] 5 LILIBETH THOMSON 2024 120 [facility] DENOSUMAB (PROLIA) PA-F INJ,SOLN INJECT ACTIVE DILAN LOPEZ 2023 [facility] DICLOXACILL IN NA 250MG CAP TAKE ONE CAPSULE BY MOUTH FOUR TIMES A DAY FOR INFECTIO N CAUSED BY BACTERIA FOR INFECTIO N ORAL DISCONT INUED BY PROVIDE R 08/14/2023 [id number] 4 DILAN LOPEZ 2023 56 [facility] HYDROCHLORO THIAZIDE 12.5MG CAP TAKE ONE CAPSULE BY MOUTH EVERY MORNING FOR HIGH BLOOD PRESSURE ORAL ACTIVE 12/18/2024 [id number] 5 DILAN LOPEZ 2023 90 [facility] HYDROCHLORO THIAZIDE 12.5MG CAP TAKE ONE CAPSULE BY MOUTH EVERY MORNING FOR HIGH BLOOD PRESSURE ORAL DISCONT INUED BY PROVIDE R 08/19/2024 [id number] DILAN FELTON 2023 90 [facility] HYDROCHLORO THIAZIDE 12.5MG CAP TAKE ONE CAPSULE BY MOUTH EVERY MORNING FOR HIGH BLOOD PRESSURE ORAL DISCONT INUED (EDIT) 09/28/2023 [id number] 4 DILAN LOPEZ 2022 30 [facility] HYDROCHLORO THIAZIDE 25MG TAB TAKE ONE TABLET BY MOUTH EVERY MORNING FOR HIGH BLOOD PRESSURE ORAL DISCONT INUED BY PROVIDE R 12/10/2024 [id number] 4 DILAN LOPEZ 2023 90 [facility] LIDOCAINE 5% OINT,TOP APPLY SMALL AMOUNT TOPICALL Y FOUR TIMES DAILY NEEDED FOR LEFT SHOULDER PAIN TOPICA L ACTIVE 05/19/2025 [id number] 5 DILAN LOPEZ 2024 35 [facility] LIDOCAINE 5% OINT,TOP APPLY SMALL AMOUNT TOPICALL Y FOUR TIMES DAILY NEEDED FOR LEFT SHOULDER PAIN TOPICA L DISCONT INUED 04/15/2025 [id number] 5 SEVEN L[facility] 2024 35 [facility] LIDOCAINE 5% OINT,TOP APPLY SMALL AMOUNT TOPICALL Y FOUR TIMES DAILY NEEDED FOR LEFT SHOULDER PAIN TOPICA L DISCONT INUED 11/11/2024 [id number] 4 DILAN LOPEZ 2023 30 [facility] LIDOCAINE 5% OINT,TOP APPLY SMALL AMOUNT TOPICALL Y FOUR TIMES DAILY NEEDED FOR LEFT SHOULDER PAIN TOPICA L DISCONT INUED 08/12/2024 [id number] 4 SEVEN LOPEZ [facility] 2023 30 [facility] LIDOCAINE 5% PATCH APPLY 2 PATCHES TOPICALL Y ONCE DAILY NEEDED FOR LOW BACK PAIN (LEAVE PATCH ON FOR 12 HOURS, THEN REMOVE PATCH) TOPICA L ACTIVE 05/05/2025 [id number] 5 DILAN LOPEZ 2024 60 [facility] LIDOCAINE 5% PATCH APPLY 1 PATCH TOPICALL Y ONCE DAILY NEEDED FOR LOW BACK PAIN (LEAVE PATCH ON FOR 12 HOURS, THEN REMOVE PATCH) TOPICA L DISCONT INUED (EDIT) 11/11/2024 [id number] 4 DILAN LOPEZ 2023 30 [facility] LIDOCAINE 5% PATCH APPLY 1 PATCH TOPICALL Y ONCE DAILY NEEDED FOR LOW BACK PAIN (LEAVE PATCH ON FOR 12 HOURS, THEN REMOVE PATCH) TOPICA L DISCONT INUED 08/12/2024 [id number] [facility] 2023 30 [facility] LISINOPRIL 10MG TAB TAKE ONE TABLET BY MOUTH TWICE DAILY TO CONTROL BLOOD PRESSURE ORAL DISCONT INUED (EDIT) 11/11/2024 [id number] 4 DILAN LOPEZ 2023 180 [facility] LISINOPRIL 10MG TAB TAKE ONE TABLET BY MOUTH TWICE DAILY TO CONTROL BLOOD PRESSURE ORAL DISCONT INUED 04/28/2024 [id number] RA ALEJO WHITE 2023 180 [facility] LISINOPRIL 20MG TAB TAKE ONE TABLET BY MOUTH ONCE DAILY TO CONTROL BLOOD PRESSURE ORAL ACTIVE 05/19/2025 [id number] 5 DILAN LOPEZ 2024 90 [facility] LISINOPRIL 20MG TAB TAKE ONE TABLET BY MOUTH TWICE DAILY TO CONTROL BLOOD PRESSURE ORAL DISCONT INUED (EDIT) 12/18/2024 [id number] 4 DILAN LOPEZ 2023 180 [facility] MINERAL OIL,LIGHT/P ETROLATUM (PF) OINT,OPH APPLY THIN RIBBON INTO EACH EYE AT BEDTIME FOR DRY EYE OPHTHA LMIC ACTIVE 05/15/2025 [id number] 5 MUIR,LAC EY J 2024 3 [facility] MINERAL OIL,LIGHT/P ETROLATUM (PF) OINT,OPH APPLY THIN RIBBON INTO EACH EYE AT BEDTIME FOR DRY EYE OPHTHA LMIC 12/12/2023 [id number] WOOD,ANA EY J 2022 3 [facility] MIRABEGRON 25MG TAB,SA TAKE ONE TABLET BY MOUTH ONCE DAILY ORAL SUSPEND ED 11/11/2024 [id number] 5 DILAN LOPEZ 2023 90 [facility] MIRABEGRON 25MG TAB,SA TAKE ONE TABLET BY MOUTH ONCE DAILY ORAL DISCONT INUED 11/14/2023 [id number] 4 SARAH BAIRD MD 2022 90 [facility] VITAMIN D3 (CHOLECALCI FEROL) TAB TAKE BY MOUTH ORAL ACTIVE DILAN LOPEZ 2017 [facility] Allergies, Adverse Reactions, Alerts Combined list of allergies from Department of Defense and Veterans Affairs facilities. It does not include entries that were removed or entered in error. Substance Category Reaction Severity Reaction type Status Date Reported Comments Source BICALUTAMIDE Propensity to adverse reactions to drug (finding) Generalized aches and pains active 7 [facility] CONTRAST MEDIA Propensity to adverse reactions to drug (finding) Eruption active 6 [facility] CONTRAST MEDIA Propensity to adverse reactions to drug (finding) Urticaria active 7 [facility] Immunizations Combined list of available immunizations from the Department of Defense and Veterans Affairs facilities. Immunization Series Date Given Administered By Site Reaction Lot Number CVX Code Drug Concrete Worker Status Comments Source COVID-19 (MODERNA), MRNA, LNP-S, PF, 50 MCG/0.5 ML (AGES 12+ YEARS) 1 2023 312 complet ed HISTORICA L INFORMATI ON - FROM OTHER PROVIDER, Mfr: [employer]LINE [facility] RSV, BIVALENT, PROTEIN SUBUNIT RSVPREF, DILUENT RECONSTITUTED , 0.5 ML, PF 1 2023 305 complet ed HISTORICA L INFORMATI ON - FROM OTHER PROVIDER, Lot#: [id number] [facility] TDAP 2023 115 complet ed Booster for Series, HISTORICA L INFORMATI ON - FROM OTHER PROVIDER, Lot#: [id number] Mfr: [employer] [facility] INFLUENZA, UNSPECIFIED FORMULATION 2023 88 complet ed Booster for Series, HISTORICA L INFORMATI ON - FROM OTHER PROVIDER, [facility] HEP A-HEP B 3 2023 LISETTE MACIEL LEFT DELTO ID [id number] 104 complet ed [facility] 2 2022 KELSY ZHOU RIGHT DELTO ID [id number] 104 complet ed [facility] 1 2022 LISETTE MACIEL RIGHT DELTO ID [id number] 104 complet ed [facility] COVID-19 (PFIZER), MRNA, LNP-S, PF, JUMANA-SUCROSE, 30 MCG/0.3 ML (AGES 12+ YEARS) 1 2022 309 complet ed HISTORICA L INFORMATI ON - FROM OTHER PROVIDER, [facility] INFLUENZA, UNSPECIFIED FORMULATION 2022 88 complet ed Booster for Series, HISTORICA L INFORMATI ON - FROM OTHER PROVIDER, [facility] TDAP 2022 LISETTE MACIEL [place] ID [id number] 115 complet ed Booster for Series, [facility] INFLUENZA, UNSPECIFIED FORMULATION 2021 88 complet ed Completed Series, HISTORICA L INFORMATI ON - FROM OTHER PROVIDER, [facility] COVID-19 (Agribots), MRNA, LNP-S, BIVALENT, PF, 30 MCG/0.3 ML DOSE 5 2021 300 complet ed HISTORICA L INFORMATI ON - FROM OTHER PROVIDER, [facility] COVID-19 (MODERNA), MRNA, LNP-S, PF, 100 MCG/0.5ML DOSE OR 50 MCG/0.25ML DOSE 3 2021 207 complet ed [facility] COVID-19 (MODERNA), MRNA, LNP-S, PF, 100 MCG OR 50 MCG DOSE [address] [facility] INFLUENZA VACCINE, QUADRIVALENT, ADJUVANTED 2020 205 complet ed [facility] COVID-19 (MODERNA), MRNA, LNP-S, PF, 100 MCG/0.5 ML DOSE 2 2020 207 complet ed MOD; [id number]; 1 [facility] COVID-19 (MODERNA), MRNA, LNP-S, PF, 100 MCG/0.5 ML DOSE 1 2020 207 complet ed MOD; [id number]; 1 [facility] ZOSTER RECOMBINANT 2 2019 187 complet ed [facility] ZOSTER RECOMBINANT 1 2019 187 complet ed [facility] INFLUENZA, UNSPECIFIED FORMULATION 2019 88 complet ed [facility] INFLUENZA, SEASONAL, INJECTABLE 2018 141 complet ed high dose flu [facility] on [facility] [...] FLU,3 YRS (HISTORICAL) 2006 88 complet ed [place] PNEUMOCOCCAL, UNSPECIFIED FORMULATION 2005 NONE 109 complet ed [facility] TD(ADULT) UNSPECIFIED FORMULATION 2005 139 complet ed [facility] INFLUENZA, UNSPECIFIED FORMULATION 2005 88 complet ed [facility] PNEUMOCOCCAL POLYSACCHARID E [id number] 1999 33 [...] Nov 11, 2023 11:31 AM Reporting Lab: [facility] [place] [address] [address] Performing Lab: [facility] [address] [address] [facility] LIPID PANEL FASTING CHOLESTEROL [MASS/VOLUM E] IN SERUM OR PLASMA 192 mg/dL 05/04 Specimen Type: SERUM No comment entered. Ordering Provider: Rema LOPEZ Report Released Date/Time: Nov 11, 2023 11:31 AM Reporting Lab: [facility] [address] Performing Lab: [facility] [address] [address] [facility] LIPID PANEL FASTING TRIGLYCERID E [MASS/VOLUM E] IN SERUM OR PLASMA 98 mg/dL 0 - 150 05/04 Specimen Type: SERUM No comment entered. Ordering Provider: Rema LOPEZ Report Released Date/Time: Nov 11, 2023 11:31 AM Reporting Lab: [facility] [place] [address] [address] Performing Lab: [facility] [place] [address] [address] [facility] [place] [facility] LIPID PANEL FASTING CHOLESTEROL IN LDL [MASS/VOLUM E] IN SERUM OR PLASMA BY CALCULATION 130 mg/dL 0 - 129 05/04 H Specimen Type: SERUM No comment entered. Ordering Provider: Rema LOPEZ Report Released Date/Time: Nov 11, 2023 11:31 AM Reporting Lab: [facility] [place] [address] Performing Lab: [facility] [place] [facility] [address] [facility] [address] [facility] [place] [facility] LIPID PANEL FASTING CHOLESTEROL .TOTAL/CHOL ESTEROL IN HDL [MASS RATIO] IN SERUM OR PLASMA 4.6 05/04 Specimen Type: SERUM No comment entered. Ordering Provider: Rema LOPEZ Report Released Date/Time: Nov 11, 2023 11:31 AM Reporting Lab: [facility] [place] [facility] [address] [facility] [address] Performing Lab: [facility] [place] [facility] [address] [facility] [address] [facility] TRN [facility] LIPID PANEL FASTING CHOLESTEROL IN HDL [MASS/VOLUM E] IN SERUM OR PLASMA 42 mg/dL 40 - 60 05/04 Specimen Type: SERUM No comment entered. Ordering Provider: Rema LOPEZ Report Released Date/Time: Nov 11, 2023 11:31 AM Reporting Lab: [facility] [place] [facility] [address] [facility] [address] Performing Lab: [facility] [place] [facility] [address] [facility] [address] [facility] [place] [facility] LIVER FUNCTION PROTEIN [MASS/VOLUM E] IN SERUM OR PLASMA 6.9 g/dL 6.0 - 8.3 05/04 Specimen Type: SERUM No comment entered. Ordering Provider: Rema LOPEZ Report Released Date/Time: Nov 11, 2023 11:31 AM Reporting Lab: [facility] [place] [facility] [address] [facility] [address] Performing Lab: [facility] [place] [address] [address] [facility] [place] [facility] LIVER FUNCTION ALBUMIN [MASS/VOLUM E] IN SERUM OR PLASMA 3.8 g/dL 3.5 - 5.0 05/04 Specimen Type: SERUM No comment entered. Ordering Provider: Rema LOPEZ Report Released Date/Time: Nov 11, 2023 11:31 AM Reporting Lab: [facility] [place] [facility] [address] [facility] [address] Performing Lab: [facility] [place] [facility] [address] [facility] [address] [facility] [facility] LIVER FUNCTION ALKALINE PHOSPHATASE [ENZYMATIC ACTIVITY/VO LUME] IN SERUM OR PLASMA 44 U/L 40 - 150 05/04 Specimen Type: SERUM No comment entered. Ordering Provider: Rema LOPEZ Report Released Date/Time: Nov 11, 2023 11:31 AM Reporting Lab: [facility] [place] [facility] [address] [facility] [address] Performing Lab: [facility] [place] [facility] [address] [facility] [address] [facility] [place] [facility] LIVER FUNCTION ASPARTATE AMINOTRANSF ERASE [ENZYMATIC ACTIVITY/VO LUME] IN SERUM OR PLASMA 16 U/L 5 - 34 05/04 Specimen Type: SERUM No comment entered. Ordering Provider: Rema LOPEZ Report Released Date/Time: Nov 11, 2023 11:31 AM Reporting Lab: [facility] [place] [facility] [address] [facility] [address] Performing Lab: [facility] [place] [facility] [address] [facility] [address] [facility] [facility] LIVER FUNCTION ALANINE AMINOTRANSF ERASE [ENZYMATIC ACTIVITY/VO LUME] IN SERUM OR PLASMA 16 U/L 05/04 Specimen Type: SERUM No comment entered. Ordering Provider: Rema LOPEZ Report Released Date/Time: Nov 11, 2023 11:31 AM Reporting Lab: [facility] [place] [facility] [address] [facility] [address] Performing Lab: [facility] [place] [facility] [address] [facility] [address] [facility] [facility] LIVER FUNCTION BILIRUBIN.T OTAL [MASS/VOLUM E] IN SERUM OR PLASMA 0.3 mg/dL 0.2 - 1.2 05/04 Specimen Type: SERUM No comment entered. Ordering Provider: Rema LOPEZ Report Released Date/Time: Nov 11, 2023 11:31 AM Reporting Lab: [facility] [place] [facility] [address] [facility] [address] Performing Lab: [facility] [place] [facility] [address] [facility] [address] [facility] [place] [facility] BASIC METABOLIC PANEL (fasting) UREA NITROGEN [MASS/VOLUM E] IN SERUM OR PLASMA 18 mg/dL 7 - 25 05/04 Specimen Type: SERUM No comment entered. Ordering Provider: Rema LOPEZ Report Released Date/Time: Nov 11, 2023 11:31 AM Reporting Lab: [facility] [place] [facility] [address] [facility] [address] Performing Lab: [facility] [place] [facility] [address] [facility] [address] [facility] [place] [facility] BASIC METABOLIC PANEL (fasting) GLUCOSE [MASS/VOLUM E] IN SERUM OR PLASMA 100 mg/dL 65 - 100 05/04 Specimen Type: SERUM No comment entered. Ordering Provider: Rema LOPEZ Report Released Date/Time: Nov 11, 2023 11:31 AM Reporting Lab: [facility] [place] [facility] [address] [facility] [address] Performing Lab: [facility] [place] [facility] [address] [facility] [address] [facility] [place] [facility] BASIC METABOLIC PANEL (fasting) SODIUM [MOLES/VOLU ME] IN SERUM OR PLASMA 137 mmol/L 135 - 145 05/04 Specimen Type: SERUM No comment entered. Ordering Provider: Rema LOPEZ Report Released Date/Time: Nov 11, 2023 11:31 AM Reporting Lab: [facility] [place] [facility] [address] [facility] [address] Performing Lab: [facility] [place] [address] [address] [facility] [place] [facility] BASIC METABOLIC PANEL (fasting) POTASSIUM [MOLES/VOLU ME] IN SERUM OR PLASMA 4.8 mmol/L 3.5 - 5.0 05/04 Specimen Type: SERUM No comment entered. Ordering Provider: Rema LOPEZ Report Released Date/Time: Nov 11, 2023 11:31 AM Reporting Lab: [facility] [place] [address] [address] Performing Lab: [facility] [place] [address] [address] [facility] BASIC METABOLIC PANEL (fasting) CHLORIDE [MOLES/VOLU ME] IN SERUM OR PLASMA 104 mmol/L 100 - 110 05/04 Specimen Type: SERUM No comment entered. Ordering Provider: Rema LOPEZ Report Released Date/Time: Nov 11, 2023 11:31 AM Reporting Lab: [facility] [place] [address] [address] Performing Lab: [facility] [place] [address] [address] [facility] BASIC METABOLIC PANEL (fasting) CARBON DIOXIDE, TOTAL [MOLES/VOLU ME] IN SERUM OR PLASMA 25 meq/L 20 - 30 05/04 Specimen Type: SERUM No comment entered. Ordering Provider: Rema LOPEZ Report Released Date/Time: Nov 11, 2023 11:31 AM Reporting Lab: [facility] [place] [address] [address] Performing Lab: [facility] [place] [address] [address] [facility] BASIC METABOLIC PANEL (fasting) CREATININE [MASS/VOLUM E] IN SERUM OR PLASMA 0.97 mg/dL 0.50 - 1.40 05/04 Specimen Type: SERUM No comment entered. Ordering Provider: Rema LOPEZ Report Released Date/Time: Nov 11, 2023 11:31 AM Reporting Lab: [facility] [place] [facility] [address] [facility] [address] Performing Lab: [facility] [address] [facility] [address] [place] [facility] [place] [facility] BASIC METABOLIC PANEL (fasting) GLOMERULAR FILTRATION RATE/1.73 SQ M.PREDICTED [VOLUME RATE/AREA] IN SERUM, PLASMA OR BLOOD BY CREATININE- BASED FORMULA (CKD-EPI 2020) 78 mL/min 60 05/04 Specimen Type: SERUM No comment entered. Ordering Provider: Rema LOPEZ Report Released Date/Time: Nov 11, 2023 11:31 AM Reporting Lab: [facility] [address] Performing Lab: [facility]ITALTR[facility]USE[address] [address] [facility] MICROSCOP IC AUTOMATED , URINE LEUKOCYTES [#/AREA] IN URINE SEDIMENT BY MICROSCOPY HIGH POWER FIELD 6-10/[ HPF] 0 - 5 03/22 H Specimen Type: URINE Comment: If Glucose = >500 and Ketones are positive, please alert the Physician. Ordering Provider: JULIA LION Report Released Date/Time: Mar 22, 2024 07:54 AM Reporting Lab: [facility]ENTER[facility] [address] [address] Performing Lab: [facility]ENTER[facility] [address] [facility]TR[facility]USE [facility] MICROSCOP IC AUTOMATED , URINE MUCUS [#/AREA] IN URINE SEDIMENT BY MICROSCOPY LOW POWER FIELD FEW/[L PF] 03/22 Specimen Type: URINE Comment: If Glucose = >500 and Ketones are positive, please alert the Physician. Ordering Provider: JULIA LION Report Released Date/Time: Mar 22, 2024 07:54 AM Reporting Lab: [facility] [address] [address] Performing Lab: [facility] [address] [facility]PITALTRN [place] [facility] MICROSCOP IC AUTOMATED , URINE ERYTHROCYTE S [#/AREA] IN URINE SEDIMENT BY MICROSCOPY HIGH POWER FIELD 0-2/[H PF] 0 - 3 03/22 Specimen Type: URINE Comment: If Glucose = >500 and Ketones are positive, please alert the Physician. Ordering Provider: JULIA LION Report Released Date/Time: Mar 22, 2024 07:54 AM Reporting Lab: [facility] [place] [address] [address] Performing Lab: [facility] [place] [address] [address] [facility]ITALTRN [facility] URINALYSI S CLEAN CATCH COLOR OF URINE Light- Yellow 03/22 Specimen Type: URINE Comment: If Glucose = >500 and Ketones are positive, please alert the Physician. Ordering Provider: JULIA LION Report Released Date/Time: Mar 22, 2024 07:54 AM Reporting Lab: [facility] [place] [address] [address] Performing Lab: [facility] [place] [address] [address] [facility] [place] [facility] URINALYSI S CLEAN CATCH APPEARANCE OF URINE Clear 03/22 Specimen Type: URINE Comment: If Glucose = >500 and Ketones are positive, please alert the Physician. Ordering Provider: JULIA LION Report Released Date/Time: Mar 22, 2024 07:54 AM Reporting Lab: [facility] [place] [address] [address] Performing Lab: [facility] [place] [address] [address] [facility] [place] [facility] URINALYSI S CLEAN CATCH GLUCOSE [MASS/VOLUM E] IN URINE Normal mg/dL 03/22 Specimen Type: URINE Comment: If Glucose = >500 and Ketones are positive, please alert the Physician. Ordering Provider: JULIA LION Report Released Date/Time: Mar 22, 2024 07:54 AM Reporting Lab: [facility] [place] [facility] [address] [facility] [address] Performing Lab: [facility] [place] [facility] [address] [facility] [address] [facility] [place] [facility] URINALYSI S CLEAN CATCH KETONES [MASS/VOLUM E] IN URINE BY TEST STRIP NEGATI VEmg/d L 03/22 Specimen Type: URINE Comment: If Glucose = >500 and Ketones are positive, please alert the Physician. Ordering Provider: JULIA LION Report Released Date/Time: Mar 22, 2024 07:54 AM Reporting Lab: [facility] [place] [address] [address] Performing Lab: [facility] [place] [address] [address] [facility] [place] [facility] URINALYSI S CLEAN CATCH ERYTHROCYTE S [PRESENCE] IN URINE SEDIMENT BY LIGHT MICROSCOPY NEGATI VEmg/d L 03/22 Specimen Type: URINE Comment: If Glucose = >500 and Ketones are positive, please alert the Physician. Ordering Provider: JULIA LION Report Released Date/Time: Mar 22, 2024 07:54 AM Reporting Lab: [facility] [place] [address] [address] Performing Lab: [facility] [place] [address] [address] [facility] [place] [facility] URINALYSI S CLEAN CATCH PROTEIN [MASS/VOLUM E] IN URINE BY TEST STRIP 20 mg/dL 03/22 Specimen Type: URINE Comment: If Glucose = >500 and Ketones are positive, please alert the Physician. Ordering Provider: JULIA LION Report Released Date/Time: Mar 22, 2024 07:54 AM Reporting Lab: [facility] [place] [facility] [address] [facility] [address] Performing Lab: [facility] [place] [address] [address] [facility] [place] [facility] URINALYSI S CLEAN CATCH NITRITE [PRESENCE] IN URINE NEGATI VEmg/d L 03/22 Specimen Type: URINE Comment: If Glucose = >500 and Ketones are positive, please alert the Physician. Ordering Provider: JULIA LION Report Released Date/Time: Mar 22, 2024 07:54 AM Reporting Lab: [facility] [address] [address] Performing Lab: [facility] [address] [address] [facility] [place] [facility] URINALYSI S CLEAN CATCH BILIRUBIN.T OTAL [PRESENCE] IN URINE NEGATI VEmg/d L 03/22 Specimen Type: URINE Comment: If Glucose = >500 and Ketones are positive, please alert the Physician. Ordering Provider: JULIA LION Report Released Date/Time: Mar 22, 2024 07:54 AM Reporting Lab: [facility] [place] [address] Performing Lab: [facility] [address] [facility] [place] [facility] URINALYSI S CLEAN CATCH SPECIFIC GRAVITY OF URINE BY REFRACTOMET RY 1.017 1.016 - 1.022 03/22 Specimen Type: URINE Comment: If Glucose = >500 and Ketones are positive, please alert the Physician. Ordering Provider: JULIA LION Report Released Date/Time: Mar 22, 2024 07:54 AM Reporting Lab: [facility] [address] [address] Per[facility] Lab: [place] [facility] [facility] [address] [address] [facility] [place] [facility] URINALYSI S CLEAN CATCH PH OF URINE BY TEST STRIP 7.0 5.0 - 9.0 03/22 Specimen Type: URINE Comment: If Glucose = >500 and Ketones are positive, please alert the Physician. Ordering Provider: JULIA LION Report Released Date/Time: Mar 22, 2024 07:54 AM Reporting Lab: [facility] [place] [facility] [address] [facility] [address] Performing Lab: [facility] [place] [facility] [address] [facility] [address] [facility] [place] [facility] URINALYSI S CLEAN CATCH UROBILINOGE N [MASS/VOLUM E] IN URINE BY TEST STRIP Normal mg/dL <2.0 - 2.0 03/22 Specimen Type: URINE Comment: If Glucose = >500 and Ketones are positive, please alert the Physician. Ordering Provider: JULIA LION Report Released Date/Time: Mar 22, 2024 07:54 AM Reporting Lab: [place] [facility] [place] [address] [address] Performing Lab: [place] [facility] [place] [address] [address] [facility] [place] [facility] URINALYSI S CLEAN CATCH LEUKOCYTE ESTERASE [PRESENCE] IN URINE BY TEST STRIP SMALL 03/22 Specimen Type: URINE Comment: If Glucose = >500 and Ketones are positive, please alert the Physician. Ordering Provider: JULIA LION Report Released Date/Time: Mar 22, 2024 07:54 AM Reporting Lab: [place] [facility] [place] [address] [address] Performing Lab: [place] [facility] [facility] [address] [address] [facility] [place] [facility] BASIC METABOLIC PANEL (fasting) UREA NITROGEN [MASS/VOLUM E] IN SERUM OR PLASMA 15 mg/dL 01/27 Specimen Type: SERUM No comment entered. Ordering Provider: Rema LOPEZ Report Released Date/Time: Dec 10, 2023 01:06 PM Reporting Lab: [facility] [place] [address] [address] Performing Lab: [place] [facility] [place] [address] [address] [facility] [place] [facility] BASIC METABOLIC PANEL (fasting) GLUCOSE [MASS/VOLUM E] IN SERUM OR PLASMA 86 mg/dL 65 - 100 01/27 Specimen Type: SERUM No comment entered. Ordering Provider: Rema LOPEZ Report Released Date/Time: Dec 10, 2023 01:06 PM Reporting Lab: [facility]ERN [facility] [address] [facility] [address] Performing [facility]: [facility] [address] [address] [facility]ERN [facility] BASIC METABOLIC PANEL (fasting) SODIUM [MOLES/VOLU ME] IN SERUM OR PLASMA 140 mmol/L 135 - 145 01/27 Specimen Type: SERUM No comment entered. Ordering Provider: Rema LOPEZ Report Released Date/Time: Dec 10, 2023 01:06 PM Reporting Lab: [facility] [address] [address] Performing Lab: [facility]ERN [address] [address] [facility] BASIC METABOLIC PANEL (fasting) POTASSIUM [MOLES/VOLU ME] IN SERUM OR PLASMA 4.3 mmol/L 3.5 - 5.0 01/27 Specimen Type: SERUM No comment entered. Ordering Provider: Rema LOPEZ Report Released Date/Time: Dec 10, 2023 01:06 PM Reporting Lab: [facility] [address] [address] Performing Lab: [facility]ENTERUSE[address] [address] [facility]ERN [facility] BASIC METABOLIC PANEL (fasting) CHLORIDE [MOLES/VOLU ME] IN SERUM OR PLASMA 104 mmol/L 100 - 110 01/27 Specimen Type: SERUM No comment entered. Ordering Provider: Rema LOPEZ Report Released Date/Time: Dec 10, 2023 01:06 PM Reporting Lab: [facility] [address] [address] Performing Lab: [facility]ERN [facility] [address] [facility] [address] [facility]USE [facility] BASIC METABOLIC PANEL (fasting) CARBON DIOXIDE, TOTAL [MOLES/VOLU ME] IN SERUM OR PLASMA 22 meq/L 20 - 30 01/27 Specimen Type: SERUM No comment entered. Ordering Provider: Rema LOPEZ Report Released Date/Time: Dec 10, 2023 01:06 PM Reporting Lab: [facility] [address] [facility] [address] Performing Lab: [facility] TRN [facility]ENTERUSE[address] [address] [facility]ENTERUSE [facility] BASIC METABOLIC PANEL (fasting) CREATININE [MASS/VOLUM E] IN SERUM OR PLASMA 0.92 mg/dL 0.50 - 1.40 01/27 Specimen Type: SERUM No comment entered. Ordering Provider: Rema LOPEZ Report Released Date/Time: Dec 10, 2023 01:06 PM Reporting Lab: [facility]ENTERUSE[facility] [address] [facility] [address] Performing Lab: [facility]ENTERUSE[address] [address] [facility]ENTERUSE [facility] BASIC METABOLIC PANEL (fasting) GLOMERULAR FILTRATION RATE/1.73 SQ M.PREDICTED [VOLUME RATE/AREA] IN SERUM, PLASMA OR BLOOD BY CREATININE- BASED FORMULA (CKD-EPI 2020) 84 mL/min 60 01/27 Specimen Type: SERUM No comment entered. Ordering Provider: Rema LOPEZ Report Released Date/Time: Dec 10, 2023 01:06 PM Reporting Lab: [facility]ENTERUSE[facility] [address] [facility] [address] Performing Lab: [facility]RGE[facility] CENTERN [facility] CENTERUSE[address] [address] [facility] CREATININ E (eGFR 2020) CREATININE [MASS/VOLUM E] IN SERUM OR PLASMA 0.91 mg/dL 0.50 - 1.40 01/27 Specimen Type: SERUM No comment entered. Ordering Provider: FLORENTIN ANDRE Report Released Date/Time: Jan 12, 2024 09:43 AM Reporting Lab: [facility] [facility] [address] [facility] [address] Performing Lab: [facility] [facility] [address] [facility] [address] [facility] [place] [facility] CREATININ E (eGFR 2020) GLOMERULAR FILTRATION RATE/1.73 SQ M.PREDICTED [VOLUME RATE/AREA] IN SERUM, PLASMA OR BLOOD BY CREATININE- BASED FORMULA (CKD-EPI 2020) 85 mL/min 60 01/27 Specimen Type: SERUM No comment entered. Ordering Provider: FLORENTIN ANDRE Report Released Date/Time: Jan 12, 2024 09:43 AM Reporting Lab: [facility] [place] [address] [address] Performing Lab: [facility] [place] [address] [address] [facility] [place] [facility] CBC LEUKOCYTES [#/VOLUME] IN BLOOD BY AUTOMATED COUNT 7.04 10*3/u L 4.50 - 11.00 01/27 Specimen Type: BLOOD No comment entered. Ordering Provider: FLORENTIN ANDRE Report Released Date/Time: Jan 12, 2024 09:43 AM Reporting Lab: [facility] [place] [address] [address] Performing Lab: [facility] [address] [address] [facility] [place] [facility] CBC ERYTHROCYTE S [#/VOLUME] IN BLOOD BY AUTOMATED COUNT 4.72 10*6/u L 4.23 - 5.66 01/27 Specimen Type: BLOOD No comment entered. Ordering Provider: FLORENTIN ANDRE Report Released Date/Time: Jan 12, 2024 09:43 AM Reporting Lab: [facility] [place] [place] [address] [address] Performing Lab: [facility] [place] [address] [place] [address] [facility] [facility] CBC HEMOGLOBIN [MASS/VOLUM E] IN BLOOD 13.3 g/dL 12.8 - 17 01/27 Specimen Type: BLOOD No comment entered. Ordering Provider: FLORENTIN ANDRE Report Released Date/Time: Jan 12, 2024 09:43 AM Reporting Lab: [facility] [facility] [address] [facility] [address] Performing Lab: [facility] [place] [facility] [address] [facility] [address] [facility] [place] [facility] CBC HEMATOCRIT [VOLUME FRACTION] OF BLOOD BY AUTOMATED COUNT 40.9 39.2 - 50.4 01/27 Specimen Type: BLOOD No comment entered. Ordering Provider: FLORENTIN ANDRE Report Released Date/Time: Jan 12, 2024 09:43 AM Reporting Lab: [facility] [place] [address] [address] Performing Lab: [facility] [place] [address] [address] [facility] [facility] CBC MCV [ENTITIC VOLUME] BY AUTOMATED COUNT 86.7 fL 82 - 99 01/27 Specimen Type: BLOOD No comment entered. Ordering Provider: FLORENTIN ANDRE Report Released Date/Time: Jan 12, 2024 09:43 AM Reporting Lab: [facility] [address] [address] Performing Lab: [facility] [address] [address] [facility] [facility] CBC MCHC [MASS/VOLUM E] BY AUTOMATED COUNT 32.5 g/dL 30.8 - 35.1 01/27 Specimen Type: BLOOD No comment entered. Ordering Provider: FLORENTIN ANDRE Report Released Date/Time: Jan 12, 2024 09:43 AM Reporting Lab: [facility] [address] [address] Performing Lab: [facility] [place] [facility] [address] [facility] [address] [facility] [facility] CBC PLATELETS [#/VOLUME] IN BLOOD BY AUTOMATED COUNT 221 10*3/u L 140 - 360 01/27 Specimen Type: BLOOD No comment entered. Ordering Provider: FLORENTIN ANDRE Report Released Date/Time: Jan 12, 2024 09:43 AM Reporting Lab: [facility] [place] [facility] [address] [facility] [address] Performing Lab: [facility] [place] [facility] [address] [facility] [address] [facility] [place] [facility] CBC ERYTHROCYTE DISTRIBUTIO N WIDTH [RATIO] BY AUTOMATED COUNT 13.7 12.0 - 16.0 01/27 Specimen Type: BLOOD No comment entered. Ordering Provider: FLORENTIN ANDRE Report Released Date/Time: Jan 12, 2024 09:43 AM Reporting Lab: [facility] [place] [facility] [address] [facility] [address] Performing Lab: [facility] [facility] [address] [facility] [address] [facility] [facility] CBC MCH [ENTITIC MASS] BY AUTOMATED COUNT 28.2 pg 26.2 - 32.6 01/27 Specimen Type: BLOOD No comment entered. Ordering Provider: FLORENTIN ANDRE Report Released Date/Time: Jan 12, 2024 09:43 AM Reporting Lab: [facility] [place] [facility] [address] [facility] [address] Performing Lab: [facility] [facility] [address] [facility] [address] [facility] [place] [facility] VITAMIN D (25-OH) 25-HYDROXYV ITAMIN D3 [MASS/VOLUM E] IN SERUM OR PLASMA 26 ng/mL 20 - 50 11/05 Specimen Type: SERUM No comment entered. Ordering Provider: Rema LOPEZ Report Released Date/Time: Jul 15, 2023 10:53 AM Reporting Lab: [facility] [place] [facility] [address] [facility] [address] Performing Lab: [facility] [place] [facility] [address] [facility] [address] [facility] [place] [facility] Vital Signs Combined list of inpatient and outpatient Vital Signs from Department of Defense and Veterans Affairs, ranging from 12 months to all on record, depending upon the facility. Vital Sign Value Date Comments Source SYSTOLIC BLOOD PRESSURE 130 07/24/19 25 09:20:35 [facility] [place] [facility] DIASTOLIC BLOOD PRESSURE 80 025 09:20:35 [facility] [place] [facility] PULSE OXIMETRY 97 07/23/2024 09:20:35 [facility] [place] [facility] WEIGHT 213 07/23/2024 09:20:35 [facility] [place] [facility] BMI 31 kg/m2 07/23/2024 09:20:35 [facility] [place] [facility] TEMPERATURE 98.4 07/23/2024 09:20:35 [facility] [place] [facility] PULSE 70 07/23/2024 09:20:35 [facility] [place] [facility] RESPIRATION 16 07/23/2024 09:20:35 [facility] [place] [facility] SYSTOLIC BLOOD PRESSURE 131 06/04/19 25 10:05:12 [facility] [place] [facility] DIASTOLIC BLOOD PRESSURE 65 025 10:05:12 [facility] [place] [facility] PULSE 67 06/03/2024 10:05:12 [facility] [place] [facility] SYSTOLIC BLOOD PRESSURE 140 05/27/19 25 14:55:00 [facility] [place] [facility] DIASTOLIC BLOOD PRESSURE 70 025 14:55:00 [facility] [place] [facility] PULSE OXIMETRY 98 05/26/2024 14:55:00 [facility] [place] [facility] PAIN 3 05/26/2024 14:55:00 [facility] [place] [facility] PULSE 74 05/26/2024 14:55:00 [facility] [place] [facility] RESPIRATION 20 05/26/2024 14:55:00 [facility] [place] [facility] SYSTOLIC BLOOD PRESSURE 92 05/19/19 25 07:58:05 [facility] [place] [facility] DIASTOLIC [...] [place] [facility] SYSTOLIC BLOOD PRESSURE 110 03/22/19 25 08:27:03 [facility] [place] [facility] DIASTOLIC BLOOD PRESSURE 68 025 08:27:03 [facility] [place] [facility] PULSE OXIMETRY 98 03/22/2024 08:27:03 [facility] [place] [facility] TEMPERATURE 98.6 03/22/2024 08:27:03 [facility] [place] [facility] PULSE 91 03/22/2024 08:27:03 [facility] [place] [facility] RESPIRATION 18 03/22/2024 08:27:03 [facility] [place] [facility] Encounters Combined [...] Disposition Source [facility] [place] THERAPEUTI C EXERCISES [id number] Diagnos is: ICD-10- CM M75.00 Adhesiv e capsuli tis of unspeci fied shouldAMY Munoz E 01/28 [facility] [place] [place] [facility] SELF CARE MNGMENT TRAINING [id number] Diagnos is: ICD-10- CM Z47.89 Encount er for other orthope dic afterca re AG FERNANDEZ 01/28 [facility] [place] [facility] [place] [facility] EXERCISE CLASS [id number] Diagnos is: ICD-10- CM Z72.3 Lack of physica l exercis Carlos Mcgregor 01/29 [facility] [place] [facility] [place] [facility] OFF/OP EST JULY X REQ PHY/QHP [id number] Diagnos is: ICD-10- CM Z23 Encount er for immuniz ation Edward ZHOU 01/29 [facility] [place] Outpatient Encounter [id number] 01/30 [facility] [place] En[facility] [id number] 01/30 [facility] [place] [facility] [place] EXERCISE CLASS [id number] Diagnos is: ICD-10- CM Z72.3 Lack of physica l exercAG James 01/31 [facility] [place] [place] [facility] EXERCISE CLASS [id number] Diagnos is: ICD-10- CM Z72.3 Lack of physica l exercis e AG FERNANDEZ 02/03 [facility] [place] [place] [facility] SELF-MGMT EDUC & TRAIN 1 [place] [id number] Diagnos is: ICD-10- CM G47.33 Obstruc tive sleep apnea (adult) (pediat uma) JESENIA,PALMER UMA 02/03 [facility] [place] [facility] [facility] [place] [facility] Outpatient Encounter [id number] Edward ZHOU 02/04 [facility] [place] [place] [facility] THERAPEUTI C EXERCISES [id number] Diagnos is: ICD-10- CM M75.00 Adhesiv e capsuli tis of unspeci fied shoulde r AMY WALKER E 02/05 [facility] [place] EXERCISE CLASS [id number] Diagnos is: ICD-10- CM Z72.3 Lack of physica l exercis e Carlos PARIS 02/05 [facility] EXERCISE CLASS [id number] Diagnos is: ICD-10- CM Z72.3 Lack of physica l exercis e MANDO DANG 02/07 [facility] [place] EXERCISE CLASS [id number] Diagnos is: ICD-10- CM Z72.3 Lack of physica l exercis e Carlos PARIS 02/12 [facility] [place] [place] [facility] SLEEP STUDY UNATT&RESP EFFT [id number] Diagnos is: ICD-10- CM G47.33 Obstruc tive sleep apnea (adult) ([facility]) PALMER BA UMA 02/12 [facility] [place] Outpatient Encounter [id number] 02/13 [facility] [place] SLEEP STUDY UNATT&RESP EFFT [id number] Diagnos is: ICD-10- CM G47.33 Obstruc tive sleep apnea (adult) ([facility]) ADELA BOUDREAUX 02/13 [facility] EXERCISE CLASS [id number] Diagnos is: ICD-10- CM Z72.3 Lack of physica l exercis e AG FERNANDEZ 02/14 [facility] EXERCISE CLASS [id number] Diagnos is: ICD-10- CM Z72.3 Lack of physica l exercis e AG FERNANDEZ M 02/17 [facility] OFFICE/[place] [id number] Diagnos is: ICD-10- CM G47.33 Obstruc tive sleep apnea (adult) ([facility]) KELLY HODGES 02/18 [facility] EXERCISE CLASS [id number] Diagnos is: ICD-10- CM Z72.3 Lack of physica l exercis e Carlos PARIS 02/19 [facility] Outpatient Encounter [id number] MARILUDILAN WALTERS 02/20 [facility] THERAPEUTI C EXERCISES [id number] Diagnos is: ICD-10- CM M75.00 Adhesiv e capsuli tis of unspeci fied shoulde r MACHON,AMY LIE E 02/21 [facility] EXERCISE CLASS [id number] Diagnos is: ICD-10- CM Z72.3 Lack of physica l exercis WYATT Velázquez 02/21 [facility] EXERCISE CLASS [id number] Diagnos is: ICD-10- CM Z72.3 Lack of physica l exercis AG Sandy 02/24 [facility] EXERCISE CLASS [id number] Diagnos is: ICD-10- CM Z72.3 Lack of physica l exercWYATT Petersen 02/26 [facility] THERAPEUTI C EXERCISES [id number] Diagnos is: ICD-10- CM M75.00 Adhesiv e capsuli tis of unspeci fied shoulde r MACHON,AMY LIE E 02/26 [facility] Outpatient Encounter [id number] 02/26 [facility] EXERCISE CLASS [id number] Diagnos is: ICD-10- CM Z72.3 Lack of physica l exercis WYATT Velázquez 02/28 [facility] [place] LD POS AIRWAY PRESSURE CPAP [id number] Diagnos is: ICD-10- CM G47.30 Sleep apnea, unspeci fied LG [place] 02/28 [place] [facility] EXERCISE CLASS [id number] Diagnos is: ICD-10- CM Z72.3 Lack of physica l exercis AG Sandy 03/03 [facility] Outpatient Encounter [id number] DILAN LOPEZ 03/04 [facility] EXERCISE CLASS [id number] Diagnos is: ICD-10- CM Z72.3 Lack of physica l exercCarlos Stone 03/05 [facility] COLLJ & INTERPJ DATA EA 30 D [id number] Diagnos is: ICD-10- CM G47.30 Sleep apnea, unspeci fied ST AMARIEL,KELLY E P 03/05 [facility] THERAPEUTI C EXERCISES [id number] Diagnos is: ICD-10- CM M75.00 Adhesiv e capsuli tis of unspeci fied AMY Merrill E 03/06 [facility] EXERCISE CLASS [id number] Diagnos is: ICD-10- CM Z72.3 Lack of physica l exercis Carlos Mcgregor 03/07 [facility] OFFICE O/P EST LOW 20-29 MIN [id number] [id number] Diagnos is: ICD-10- CM 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 ARMAND LION 03/14 [facility] OFF/OP EST MAY X REQ PHY/QHP [id number] Diagnos is: ICD-10- CM 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 Edward ZHOU BELEN M 03/14 [facility] Outpatient Encounter [id number] Edward ZHOU BELEN M 03/14 [facility] THERAPEUTI C EXERCISES [id number] [id number] Diagnos is: ICD-10- CM M75.00 Adhesiv e capsuli tis of unspeci fied shouldAMY Munoz E 03/21 [facility] Outpatient Encounter [id number] 03/21 [facility] EXERCISE CLASS [id number] Diagnos is: ICD-10- CM Z72.3 Lack of physica l exercis e AG FERNANDEZ M 03/21 [facility] [place] COLLJ & INTERPJ DATA EA 30 D [id number] [id number] Diagnos is: ICD-10- CM G47.30 Sleep apnea, unspeci fied LG [place] 03/24 [place] [facility] EXERCISE CLASS [id number] Diagnos is: ICD-10- CM Z72.3 Lack of physica l exercis Carlos Mcgregor CR 03/26 [facility] THERAPEUTI C EXERCISES [id number] [id number] Diagnos is: ICD-10- CM M75.00 Adhesiv e capsuli tis of unspeci fied shoulde AMY Leary LIE E 03/27 [facility] Outpatient Encounter [id number] DILAN LOPEZ 03/27 [facility] EXERCISE CLASS [id number] Diagnos is: ICD-10- CM Z72.3 Lack of physica l exercis AG Sandy M 03/28 [facility] EXERCISE CLASS [id number] [id number] Diagnos is: ICD-10- CM Z72.3 Lack of physica l exercis Carlos Mcgregor CR 04/02 [facility] THERAPEUTI C EXERCISES [id number] [id number] Diagnos is: ICD-10- CM M75.00 Adhesiv e capsuli tis of unspeci fied shouldAMY Munoz LIE E 04/02 [facility] EXERCISE CLASS [id number] Diagnos is: ICD-10- CM Z72.3 Lack of physica l exercis AG Sandy M 04/04 [facility] EXERCISE CLASS [id number] [id number] Diagnos is: ICD-10- CM Z72.3 Lack of physica l exercis e Carlos PARIS CR 04/07 [facility] THERAPEUTI C EXERCISES [id number] [id number] Diagnos is: ICD-10- CM M75.00 Adhesiv e capsuli tis of unspeci fied shoulde r MACHON,AMY LIE E 04/09 [facility] EXERCISE CLASS [id number] [id number] Diagnos is: ICD-10- CM Z72.3 Lack of physica l exercis e MANDO DANG 04/11 [facility] EXERCISE CLASS [id number] [id number] Diagnos is: ICD-10- CM Z72.3 Lack of physica l exercis e AG FERNANDEZ 04/14 [facility] EXERCISE CLASS [id number] [id number] Diagnos is: ICD-10- CM Z72.3 Lack of physica l exercis Carlos Mcgregor CR 04/16 [facility] THERAPEUTI C EXERCISES [id number] [id number] Diagnos is: ICD-10- CM M75.00 Adhesiv e capsuli tis of unspeci fied shoulde r MACHON,AMY LIE E 04/16 [facility] Encounter [id number] 04/17 [facility] EXERCISE CLASS [id number] [id number] Diagnos is: ICD-10- CM Z72.3 Lack of physica l exercis e AG FERNANDEZ M 04/18 [facility] UNLISTED PHYSCL MED/[place] PX [id number] [id number] Diagnos is: ICD-10- CM Z72.3 Lack of physica l exercis e AG FERNANDEZ M 04/18 [facility] EXERCISE CLASS [id number] Diagnos is: ICD-10- CM Z72.3 Lack of physica l exercis e AG FERNANDEZ M 04/21 [facility] Outpatient Encounter [id number] 04/21 [facility] NASAL APPLICATIO N DEVICE [id number] [id number] Diagnos is: ICD-10- CM G47.30 Sleep apnea, unspeci fied LG [place] 04/21 [facility] EXERCISE CLASS [id number] Diagnos is: ICD-10- CM Z72.3 Lack of physica l exercis WYATT Velázquez 04/23 [facility] EVA MDLTY 1+ULTRASOU ND EA 15 [id number] [id number] Diagnos is: ICD-10- CM M75.00 Adhesiv e capsuli tis of unspeci fied AMY Merrill 04/23 [facility] Out[facility] Encounter [id number] DILAN LOPEZ 04/24 [facility] EXERCISE CLASS [id number] Diagnos is: ICD-10- CM Z72.3 Lack of physica l exercis e WYATT SHIRLEY 04/25 [facility] EXERCISE CLASS [id number] [id number] Diagnos is: ICD-10- CM Z72.3 Lack of physica l exercis e AG FERNANDEZ M 04/28 [facility] Out[facility] Encounter [id number] Edward ZHOU 04/28 [facility] EXERCISE CLASS [id number] [id number] Diagnos is: ICD-10- CM Z72.3 Lack of physica l exercis e Carlos PARISIN 04/30 [facility] THERAPEUTI C EXERCISES [id number] [id number] Diagnos is: ICD-10- CM M75.00 Adhesiv e capsuli tis of unspeci fied AMY Merrill 04/30 [facility] EXERCISE CLASS [id number] [id number] Diagnos is: ICD-10- CM Z72.3 Lack of physica l exercis e AG FERNANDEZ M 05/02 [facility] EXERCISE CLASS [id number] [id number] Diagnos is: ICD-10- CM Z72.3 Lack of physica l exercis e Carlos PARISIN 05/07 [facility] THERAPEUTI C EXERCISES [id number] [id number] Diagnos is: ICD-10- CM M75.00 Adhesiv e capsuli tis of unspeci fied shoulde AMY Leary E 05/07 [facility] EXERCISE CLASS [id number] [id number] Diagnos is: ICD-10- CM Z72.3 Lack of physica l exercis e Carlos PARIS 05/09 [facility] HEARING AID REPAIR/MOD IFYING [id number] [id number] Diagnos is: ICD-10- CM Z46.1 Encount er for fitting and adjustm ent of hearing aid SENIORZHOU 05/12 [facility] EXERCISE CLASS [id number] [id number] Diagnos is: ICD-10- CM Z72.3 Lack of physica l exercis e AG FERNANDEZ 05/12 [facility] EXERCISE CLASS [id number] [id number] Diagnos is: ICD-10- CM Z72.3 Lack of physica l exercis e WYATT SHIRLEY 05/14 [facility] EXERCISE CLASS [id number] Diagnos is: ICD-10- CM Z72.3 Lack of physica l exercis e MANDO DANG 05/15 [facility] EXERCISE CLASS [id number] Diagnos is: ICD-10- CM Z72.3 Lack of physica l exercis e AG FERNANDEZ 05/18 [facility] THERAPEUTI C EXERCISES [id number] [id number] Diagnos is: ICD-10- CM M75.20 Bicipit al tendini tis, unspeci fied shoulde samantha WALKER,AMY LIE E 05/18 [facility] EXERCISE CLASS [id number] Diagnos is: ICD-10- CM Z72.3 Lack of physica l exercis e Carlso PARIS CR 05/20 [facility] Out[facility] Encounter [id number] 05/20 [facility] EXERCISE CLASS [id number] [id number] Diagnos is: ICD-10- CM Z72.3 Lack of physica l exercis e AG FERNANDEZ 05/22 [facility] EXERCISE CLASS [id number] Diagnos is: ICD-10- CM Z72.3 Lack of physica l exercis e AG FERNANDEZ 05/25 [facility] EXERCISE CLASS [id number] [id number] Diagnos is: ICD-10- CM Z72.3 Lack of physica l exercis e MANDO DANG 05/27 [facility] EXERCISE CLASS [id number] Diagnos is: ICD-10- CM Z72.3 Lack of physica l exercis e AG FERNANDEZ 06/01 [facility] EXERCISE CLASS [id number] Diagnos is: ICD-10- CM Z72.3 Lack of physica l exercis e Carlos PARIS CR 06/03 [facility] EXERCISE CLASS [id number] Diagnos is: ICD-10- CM Z72.3 Lack of physica l exercis e AG FERNANDEZ M 06/05 [facility] EXERCISE CLASS [id number] [id number] Diagnos is: ICD-10- CM Z72.3 Lack of physica l exercis e AG FERNANDEZY M 06/08 [facility] EXERCISE CLASS [id number] [id number] Diagnos is: ICD-10- CM Z72.3 Lack of physica l exercis e Carlos PARIS CR 06/10 [facility] EXERCISE CLASS [id number] [id number] Diagnos is: ICD-10- CM Z72.3 Lack of physica l exercis e AG FERNANDEZY M 06/12 [facility] EXERCISE CLASS [id number] Diagnos is: ICD-10- CM Z72.3 Lack of physica l exercis e AG FERNANDEZY M 06/15 [facility] EXERCISE CLASS [id number] Diagnos is: ICD-10- CM Z72.3 Lack of physica l exercis e Carlos PARIS CR 06/17 [facility] EXERCISE CLASS [id number] [id number] Diagnos is: ICD-10- CM Z72.3 Lack of physica l exercis e YESENIAAG DOCKERY M 06/19 [facility] RPR&REFITG SPECT XCP APHAKIA [id number] [id number] Diagnos is: ICD-10- CM Z46.0 Encount er for fit/adj st of spectac les and contact lenses Noreen LEON J 06/19 [facility] EXERCISE CLASS [id number] [id number] Diagnos is: ICD-10- CM Z72.3 Lack of physica l exercis e Carlos PARIS 06/22 [facility] EXERCISE CLASS [id number] [id number] Diagnos is: ICD-10- CM Z72.3 Lack of physica l exercis e Carlos PARIS 06/24 [facility] EXERCISE CLASS [id number] [id number] Diagnos is: ICD-10- CM Z72.3 Lack of physica l exercis e AG FERNANDEZAníbal M 06/26 [facility] Out[facility] Encounter [id number] 06/29 [facility] En[facility] [id number] 06/29 [facility] COLLJ & INTERPJ DATA EA 30 D [id number] [id number] Diagnos is: ICD-10- CM G47.30 Sleep apnea, unspeci fied ST AMANT,KELLY E P 07/01 [facility] En[facility] [id number] 07/07 [facility] Out[facility] Encounter [id number] 07/07 [facility] EXERCISE CLASS [id number] [id number] Diagnos is: ICD-10- CM Z72.3 Lack of physica l exercis AG Sandy 07/10 [facility] TUBING WITH HEATING ELEMENT [id number] [id number] Diagnos is: ICD-10- CM G47.30 Sleep apnea, unspeci fied KELLY HODGES P 07/13 [facility] Out[facility] Encounter [id number] DILAN LOPEZ 07/13 [facility] OFFICE O/P EST LOW 20 MIN [id number] [id number] Diagnos is: ICD-10- CM L03.90 Celluli tis, unspeci fiDILAN Fitzgerald 07/14 [facility] EXERCISE CLASS [id number] Diagnos is: ICD-10- CM Z72.3 Lack of physica l exercis Carlos Mcgregor 07/15 [facility] OFF/OP EST MAY X REQ PHY/QHP [id number] [id number] Diagnos is: ICD-10- CM L03.90 Celluli tis, unspeci fied Edward ZHOU M 07/16 [facility] OFFICE O/P [place] 60 MIN [id number] [id number] Dahiana ANNA 07/16 [facility] EXERCISE CLASS [id number] [id number] Diagnos is: ICD-10- CM Z72.3 Lack of physica l exercis e AG FERNANDEZ M 07/17 [facility] EXERCISE CLASS [id number] [id number] Diagnos is: ICD-10- CM Z72.3 Lack of physica l exercis e AG FERNANDEZ M 07/20 [facility] EXERCISE CLASS [id number] Diagnos is: ICD-10- CM Z72.3 Lack of physica l exercis e Carlos PARIS 07/22 [facility] EXERCISE CLASS [id number] [id number] Diagnos is: ICD-10- CM Z72.3 Lack of physica l exercis e AG FERNANDEZ M 07/24 [facility] EXERCISE CLASS [id number] [id number] Diagnos is: ICD-10- CM Z72.3 Lack of physica l exercis e AG FERNANDEZ M 07/27 [facility] OFF/OP EST MAY X REQ PHY/QHP [id number] [id number] Diagnos is: ICD-10- CM Z04.9 Encount er for examina tion and observa tion for unsp reason Edward ZHOUGaurang Gonzalez 07/28 [facility] EXERCISE CLASS [id number] [id number] Diagnos is: ICD-10- CM Z72.3 Lack of physica l exercis e Carlos PARIS 07/29 [facility] EXERCISE CLASS [id number] [id number] Diagnos is: ICD-10- CM Z72.3 Lack of physica l exercis e WYATT SHIRLEY 07/31 [facility] Outpatient Encounter [id number] 08/01 [facility] INTRM OPH EXAM EST PATIENT [id number] Diagnos is: ICD-10- CM H40.113 1 Primary open-an gle glaucom a, bilater al, mild stage MUIR,LACE Y J 08/04 [facility] EXTENDED VISUAL FIELD XM [id number] [id number] Diagnos is: ICD-10- CM H40.113 1 Primary open-an gle glaucom a, bilater al, mild stage MUIR,LACE Y J 08/04 [facility] CMPTR OPHTH IMG OPTIC NERVE [id number] [id number] Diagnos is: ICD-10- CM H40.113 1 Primary open-an gle glaucom a, bilater al, mild stage MUIR,LACE Y J 08/04 [facility] FIT SPECTACLES MULTIFOCAL [id number] [id number] Diagnos is: ICD-10- CM Z46.0 Encount er for fit/adj st of spectac les and contact lenses TAYLOR MUIR 08/04 [facility] EXERCISE CLASS [id number] [id number] Diagnos is: ICD-10- CM Z72.3 Lack of physica l exercis Carlos Mcgregor 08/05 [facility] OFFICE O/P EST HI 40 MIN [id number] [id number] Diagnos is: ICD-10- CM M75.102 Unsp rotatr- cuff tear/ru ptr of left shoulde r, not trauma LOPEZLISA TROTTER ROBSON 08/11 [facility] Outpatient Encounter [id number] 08/11 [facility] EXERCISE CLASS [id number] [id number] Diagnos is: ICD-10- CM Z72.3 Lack of physica l exercCarlos Stone 08/12 [facility] EXERCISE CLASS [id number] [id number] Diagnos is: ICD-10- CM Z72.3 Lack of physica l exercis WYATT Velázquez 08/14 [facility] Outpatient Encounter [id number] Carlos OLIVIER 08/17 [facility] EXERCISE CLASS [id number] [id number] Diagnos is: ICD-10- CM Z72.3 Lack of physica l exercCarlos Stone 08/17 [facility] EXERCISE CLASS [id number] [id number] Diagnos is: ICD-10- CM Z72.3 Lack of physica l exercis Carlos Mcgregor 08/19 [facility] RPR&REFITG SPECT XCP APHAKIA [id number] [id number] Diagnos is: ICD-10- CM Z46.0 Encount er for fit/adj st of spectac les and contact lenses RADHA ARIAS 08/19 [facility] EXERCISE CLASS [id number] [id number] Diagnos is: ICD-10- CM Z72.3 Lack of physica l exercis e WYATT SHIRLEY 08/21 [facility] RPR&REFITG SPECT XCP APHAKIA [id number] [id number] Diagnos is: ICD-10- CM Z46.0 Encount er for fit/adj st of spectac les and contact lenses Noreen LEON 08/21 [facility] EXERCISE CLASS [id number] [id number] Diagnos is: ICD-10- CM Z72.3 Lack of physica l exercis e AG FERNANDEZ 08/24 [facility] Outpatient Encounter [id number] Edward ZHOU 08/26 [facility] EXERCISE CLASS [id number] Diagnos is: ICD-10- CM Z72.3 Lack of physica l exercis e RAINACarlos CR 08/26 [facility] EXERCISE CLASS [id number] Diagnos is: ICD-10- CM Z72.3 Lack of physica l exercis e AG FERNANDEZ M 08/28 [facility] EXERCISE CLASS [id number] Diagnos is: ICD-10- CM Z72.3 Lack of physica l exercis e AG FERNANDEZ M 08/31 [facility] EXERCISE CLASS [id number] Diagnos is: ICD-10- CM Z72.3 Lack of physica l exercis e WYATT SHIRLEY 09/04 [facility] EXERCISE CLASS [id number] Diagnos is: ICD-10- CM Z72.3 Lack of physica l exercis e Carlos PARIS CR 09/07 [facility] EXERCISE CLASS [id number] Diagnos is: ICD-10- CM Z72.3 Lack of physica l exercis e Carlos PARSI CR 09/09 [facility] EXERCISE CLASS [id number] Diagnos is: ICD-10- CM Z72.3 Lack of physica l exercis WYATT Velázquez 09/11 [facility] THERAPEUTI C EXERCISES [id number] Diagnos is: ICD-10- CM M48.07 Spinal stenosi s, lumbosa cral region WYATT SHIRLEY 09/14 [facility] EXERCISE CLASS [id number] Diagnos is: ICD-10- CM Z72.3 Lack of physica l exercis e Carlos PARIS CR 09/28 [facility] EXERCISE CLASS [id number] Diagnos is: ICD-10- CM Z72.3 Lack of physica l exercis e Carlos PARIS CR 09/30 [facility] EXERCISE CLASS [id number] Diagnos is: ICD-10- CM Z72.3 Lack of physica l exercis e Carlos PARIS CR 10/02 [facility] THERAPEUTI C EXERCISES [id number] Diagnos is: ICD-10- CM M48.07 Spinal stenosi s, lumbosa cral region WYATT SHIRLEY 10/05 [facility] EXERCISE CLASS [id number] Diagnos is: ICD-10- CM Z72.3 Lack of physica l exercis e AG FERNANDEZ 10/05 [facility] EXERCISE CLASS [id number] Diagnos is: ICD-10- CM Z72.3 Lack of physica l exercis e Carlos PARIS CR 10/07 [facility] HEARING AID REPAIR/MOD IFYING [id number] Diagnos is: ICD-10- CM Z46.1 Encount er for fitting and adjustm ent of hearing aid ALEXIA OMER 10/07 [facility] THERAPEUTI C EXERCISES [id number] Diagnos is: ICD-10- CM M48.07 Spinal stenosi s, lumbosa cral region WYATT SHIRLEY 10/12 [facility] EXERCISE CLASS [id number] 1. Diagnos is: ICD-10- CM Z72.3 Lack of physica l exercis e AG FERNANDEZ 10/12 [facility] EXERCISE CLASS [id number] 1. Diagnos is: ICD-10- CM Z72.3 Lack of physica l exercis e Carlos PARIS 10/14 [facility] EXERCISE CLASS [id number] Diagnos is: ICD-10- CM Z72.3 Lack of physica l exercis AG Sandy 10/16 [facility] EXERCISE CLASS [id number] Diagnos is: ICD-10- CM Z72.3 Lack of physica l exercis e Carlos PARISIN 11/06 [facility] MANUAL THERAPY 1/ REGIONS [id number] Diagnos is: ICD-10- CM M48.07 Spinal stenosi s, lumbosa cral region WYATT SHIRLEY 11/09 [facility] OFFICE O/P EST MOD 30 MIN [id number] Diagnos is: ICD-10- CM M54.16 Radicul opathy, lumbar region Dahiana ANNA 11/09 [facility] EXERCISE CLASS [id number] 1. Diagnos is: ICD-10- CM Z72.3 Lack of physica l exercis e AG FERNANDEZ M 11/09 [facility] OFFICE O/P EST LOW 20 MIN [id number] 1. Diagnos is: ICD-10- CM I48.91 Unspeci fied atrial fibrill keith MICHELDILAN WALTERS 11/10 [facility] EXERCISE CLASS [id number] 1. Diagnos is: ICD-10- CM Z72.3 Lack of physica l exercis e Carlos PARIS 11/11 [facility] EXERCISE CLASS [id number] 1. Diagnos is: ICD-10- CM Z72.3 Lack of physica l exercis AG Sandy 11/13 [facility] EXERCISE CLASS [id number] Diagnos is: ICD-10- CM Z72.3 Lack of physica l exercis Carlos Mcgregor 11/18 [facility] Outpatient Encounter [id number]/19 [facility] EXERCISE CLASS [id number] 1. Diagnos is: ICD-10- CM Z72.3 Lack of physica l exercis e MANDO DANG 11/23 [facility] EXERCISE CLASS [id number] Diagnos is: ICD-10- CM Z72.3 Lack of physica l exercis e AG FERNANDEZ 11/25 [facility] EXERCISE CLASS [id number] Diagnos is: ICD-10- CM Z72.3 Lack of physica l exercis e AG FERNANDEZ M 11/27 [facility] EXERCISE CLASS [id number] Diagnos is: ICD-10- CM Z72.3 Lack of physica l exercis e AG FERNANDEZ M 11/30 [facility] EXERCISE CLASS [id number] Diagnos is: ICD-10- CM Z72.3 Lack of physica l exercis e Carlos PARIS 12/02 [facility] MANUAL THERAPY [place] [id number] Diagnos is: ICD-10- CM M48.07 Spinal stenosi s, lumbosa cral region WYATT SHIRLEY 12/03 [facility] EXERCISE CLASS [id number] Diagnos is: ICD-10- CM Z72.3 Lack of physica l exercis e AG FERNANDEZ 12/04 [facility] EXERCISE CLASS [id number] 1. Diagnos is: ICD-10- CM Z72.3 Lack of physica l exercis e AG FERNANDEZ 12/07 [facility] OFFICE O/P EST HI 40 MIN [id number] 1. Diagnos is: ICD-10- CM M54.16 Radicul opathy, lumbar region LISA LOPEZ THI 12/09 [facility] Outpatient Encounter [id number] 1.12/09 [facility] Outpatient Encounter [id number] 1[facility]12/09 [facility] Outpatient Encounter [id number] 1.12/10 [facility] EXERCISE CLASS [id number] Diagnos is: ICD-10- CM Z72.3 Lack of physica l exercis e AG FERNANDEZ 12/11 [facility] EXERCISE CLASS [id number] Diagnos is: ICD-10- CM Z72.3 Lack of physica l exercis e AG FERNANDEZ 12/14 [facility] EXERCISE CLASS [id number] 1. Diagnos is: ICD-10- CM Z72.3 Lack of physica l exercis e Carlos PARIS 12/16 [facility] Outpatient Encounter [id number] 12/17 [facility] OFF/OP EST MAY X REQ PHY/QHP [id number] Diagnos is: ICD-10- CM I10 Essenti al (primar y) hyperte nsion DUNCAN SHIELDS 12/17 [facility] Outpatient Encounter [id number] 12/18 [facility] EXERCISE CLASS [id number] Diagnos is: ICD-10- CM Z72.3 Lack of physica l exercis e WYATT SHIRLEY 12/18 [facility] SELF CARE MNGMENT TRAINING [id number] Diagnos is: ICD-10- CM M48.07 Spinal stenosi s, lumbosa cral region WYATT SHIRLEY 12/21 [facility] Outpatient Encounter [id number] 12/24 [facility] EXERCISE CLASS [id number] Diagnos is: ICD-10- CM Z72.3 Lack of physica l exercis Carlos Mcgregor 01/06 [facility] MANUAL THERAPY 1/> REGIONS [id number] Diagnos is: ICD-10- CM M48.07 Spinal stenosi s, lumbosa cral region WYATT SHIRLEY 01/07 [facility] OFF/OP EST MAY X REQ PHY/QHP [id number] Diagnos is: ICD-10- CM I11.9 Hyperte nsive heart disease without heart failure Edward ZHOU 01/07 [facility] Outpatient Encounter [id number] 01/08 [facility] EXERCISE CLASS [id number] Diagnos is: ICD-10- CM Z72.3 Lack of physica l exercis e AG FERNANDEZ 01/08 [facility] EXERCISE CLASS [id number] Diagnos is: ICD-10- CM Z72.3 Lack of physica l exercis e AG FERNANDEZ 01/11 [facility] QNHP OL DIG ASSMT&MGMT 5-10 [id number] 1. Diagnos is: ICD-10- CM Z04.89 Encount er for examina tion and observa tion for oth reasons RJ ANDRE 01/11 [facility] EXERCISE CLASS [id number] Diagnos is: ICD-10- CM Z72.3 Lack of physica l exercis Carlos Mcgregor 01/13 [facility] EXERCISE CLASS [id number] [id number] Diagnos is: ICD-10- CM Z72.3 Lack of physica l exercis WYATT Velázquez 01/15 [facility] EXERCISE CLASS [id number] [id number] Diagnos is: ICD-10- CM Z72.3 Lack of physica l exercis e AG FERNANDEZ 01/18 [facility] EXERCISE CLASS [id number] [id number] Diagnos is: ICD-10- CM Z72.3 Lack of physica l exercis e WYATT SHIRLEY 01/20 [facility] Outpatient Encounter [id number] 01/22 [facility] Outpatient Encounter [id number] 49 01/28 [facility] EXERCISE CLASS [id number] Diagnos is: ICD-10- CM Z72.3 Lack of physica l exercis e WYATT SHIRLEY 01/29 [facility] EXERCISE CLASS [id number] Diagnos is: ICD-10- CM Z72.3 Lack of physica l exercis e AG FERNANDEZ 02/01 [facility] MANUAL THERAPY 1/ REGIONS [id number] Diagnos is: ICD-10- CM M48.07 Spinal stenosi s, lumbosa cral region WYATT SHIRLEY 02/01 [facility] Outpatient Encounter [id number] RYAN MACIEL ISTOPHER E 02/01 [facility] EXERCISE CLASS [id number] Diagnos is: ICD-10- CM Z72.3 Lack of physica l exercis e Carlos PARIS 02/03 [facility] EXERCISE CLASS [id number] [id number] Diagnos is: ICD-10- CM Z72.3 Lack of physica l exercis e AG FERNANDEZ 02/05 [facility] EXERCISE CLASS [id number] Diagnos is: ICD-10- CM Z72.3 Lack of physica l exercis e REBECCAAG TIN M 02/08 [facility] EXERCISE CLASS [id number] Diagnos is: ICD-10- CM Z72.3 Lack of physica l exercis e Carlos PARIS 02/10 [facility] EXERCISE CLASS [id number] Diagnos is: ICD-10- CM Z72.3 Lack of physica l exercis e WYATT SHIRLEY 02/12 [facility] EXERCISE CLASS [id number] [id number] Diagnos is: ICD-10- CM Z72.3 Lack of physica l exercis e WYATT SHIRLEY 02/24 [facility] THERAPEUTI C EXERCISES [id number] Diagnos is: ICD-10- CM M48.07 Spinal stenosi s, lumbosa cral region WYATT SHIRLEY 02/25 [facility] EXERCISE CLASS [id number] Diagnos is: ICD-10- CM Z72.3 Lack of physica l exercis e AG FERNANDEZ 02/26 [facility] EXERCISE CLASS [id number] . Diagnos is: ICD-10- CM Z72.3 Lack of physica l exercis e AG FERNANDEZ M 03/01 [facility] EXERCISE CLASS [id number] 1. Diagnos is: ICD-10- CM Z72.3 Lack of physica l exercis e Carlos PARIS 03/03 [facility] EXERCISE CLASS [id number] Diagnos is: ICD-10- CM Z72.3 Lack of physica l exercis e AG FERNANDEZ M 03/05 [facility] EXERCISE CLASS [id number] Diagnos is: ICD-10- CM Z72.3 Lack of physica l exercis e WYATT SHIRLEY 03/12 [facility] EXERCISE CLASS [id number] [id number] Diagnos is: ICD-10- CM Z72.3 Lack of physica l exercis e AG FERNANDEZ M 03/19 [facility] OFF/OP EST MAY X REQ PHY/QHP [id number] [id number] Diagnos is: ICD-10- CM R30.0 Dysuria Edward ZHOU 03/22 [facility] OFFICE O/P EST MOD 30 MIN [id number] Diagnos is: ICD-10- CM R82.81 Pyuria ARMAND LION 03/22 [facility] EXERCISE CLASS [id number] Diagnos is: ICD-10- CM Z72.3 Lack of physica l exercis e Carlos PARISIN 03/24 [facility] OFFICE O/P EST SF 10 MIN [id number] Diagnos is: ICD-10- CM Z72.3 Lack of physica l exercis e AG FERNANDEZ M 03/26 [facility] OFFICE O/P EST HI 40 MIN [id number] Diagnos is: ICD-10- CM M48.07 Spinal stenosi s, lumbosa cral region LOPEZ,LISA LUGO [facility] 04/14 [facility] EXERCISE CLASS [id number] Diagnos is: ICD-10- CM Z72.3 Lack of physica l exercis e AG FERNANDEZ M 04/16 [facility] Outpatient Encounter [id number] 04/19 [facility] EXERCISE CLASS [id number] Diagnos is: ICD-10- CM Z72.3 Lack of physica l exercis e Carlos PARIS 04/21 [facility] OFF/OP EST MAY X REQ PHY/QHP [id number] [id number] Diagnos is: ICD-10- CM Z71.89 Other specifi ed children's counselor OCTAVIA Patel 04/21 [facility] EXERCISE CLASS [id number] Diagnos is: ICD-10- CM Z72.3 Lack of physica l exercis e WYATT SHIRLEY 04/23 [facility] EXERCISE CLASS [id number] Diagnos is: ICD-10- CM Z72.3 Lack of physica l exercis e AG FERNANDEZ M 04/26 [facility] Outpatient Encounter [id number] 04/26 [facility] Outpatient Encounter [id number] 1. Edwadr ZHOU 04/26 [facility] Out[facility] Encounter [id number] 1. 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 SOVEROW,CH RISTY A 04/27 [facility] EXERCISE CLASS [id number] Diagnos is: ICD-10- CM Z72.3 Lack of physica l exercis e Carlos PARIS 04/28 [facility] UNLISTED PHYSCL MED/[place] PX [id number] [id number] Diagnos is: ICD-10- CM Z72.3 Lack of physica l exercis e WYATT SHIRLEY 04/30 [facility] EXERCISE CLASS [id number] Diagnos is: ICD-10- CM Z72.3 Lack of physica l exercis e AG FERNANDEZ M 04/30 [facility] Outpatient Encounter [id number] Edward ZHOU 05/04 [facility] Outpatient Encounter [id number] 05/11 [facility] EXERCISE CLASS [id number] Diagnos is: ICD-10- CM Z72.3 Lack of physica l exercis e WYATT SHIRLEY 05/14 [facility] OFFICE O/P EST MOD 30 MIN [id number] Diagnos is: ICD-10- CM H40.113 1 Primary open-an gle glaucom a, bilater al, mild stage MUIR,LACE Y J 05/14 [facility] EXERCISE CLASS [id number] Diagnos is: ICD-10- CM Z72.3 Lack of physica l exercis e AG FERNANDEZ M 05/17 [facility] OFFICE O/P EST MOD 30 MIN [id number] [id number] Diagnos is: ICD-10- CM G47.30 Sleep apnea, unspeci DILAN Couch 05/18 [facility] EXERCISE CLASS [id number] Diagnos is: ICD-10- CM Z72.3 Lack of physica l exercis e AG FERNANDEZ 05/24 [facility] EXERCISE CLASS [id number] Diagnos is: ICD-10- CM Z72.3 Lack of physica l exercis e Carlos PARIS 05/26 [facility] Outpatient Encounter [id number] 05/26 [facility] Outpatient [facility]counter [id number] 05/26 [facility] Outpatient Encounter [id number] 05/26 [facility] EXERCISE CLASS [id number] [id number] Diagnos is: ICD-10- CM Z72.3 Lack of physica l exercis Carlos Mcgregor 06/02 [facility] OFF/OP EST MAY X REQ PHY/QHP [id number] [id number] Diagnos is: ICD-10- CM I11.9 Hyperte nsive heart disease without heart failure Edward ZHOU 06/03 [facility] EXERCISE CLASS [id number] Diagnos is: ICD-10- CM Z72.3 Lack of physica l exercis e WYATT SHIRLEY 06/04 [facility] EXERCISE CLASS [id number] Diagnos is: ICD-10- CM Z72.3 Lack of physica l exercis e WYATT SHIRLEY 06/07 [facility] EXERCISE CLASS [id number] Diagnos is: ICD-10- CM Z72.3 Lack of physica l exercis e Carlos PARIS 06/09 [facility] EXERCISE CLASS [id number] Diagnos is: ICD-10- CM Z72.3 Lack of physica l exercis e AG FERNANDEZ 06/11 [facility] Outpatient Encounter [id number] 06/11 [facility] EXERCISE CLASS [id number] Diagnos is: ICD-10- CM Z72.3 Lack of physica l exercis e AG FERNANDEZ 06/14 [facility] Outpatient Encounter [id number] 06/15 [facility] EXERCISE CLASS [id number] [id number] Diagnos is: ICD-10- CM Z72.3 Lack of physica l exercis e Carlos PARIS 06/16 [facility] EXERCISE CLASS [id number] Diagnos is: ICD-10- CM Z72.3 Lack of physica l exercis e AG FERNANDEZ 06/18 [facility] EXERCISE CLASS [id number] Diagnos is: ICD-10- CM Z72.3 Lack of physica l exercis e REBECCAAG CARINAníbal M 06/25 [facility] OFF/OP EST MAY X REQ PHY/QHP [id number] [id number] Diagnos is: ICD-10- CM Z72.3 Lack of physica l exercis e AG FERNANDEZ M 06/28 [facility] EXERCISE CLASS [id number] Diagnos is: ICD-10- CM Z72.3 Lack of physica l exercis e Carlos PARIS CR 06/30 [facility] EXERCISE CLASS [id number] Diagnos is: ICD-10- CM Z72.3 Lack of physica l exercis e AG FERNANDEZ M 07/02 [facility] EXERCISE CLASS [id number] Diagnos is: ICD-10- CM Z72.3 Lack of physica l exercis e Carlos PARIS CR 07/05 [facility] EXERCISE CLASS [id number] Diagnos is: ICD-10- CM Z72.3 Lack of physica l exercis e Carlos PARIS CR 07/07 [facility] EXERCISE CLASS [id number] Diagnos is: ICD-10- CM Z72.3 Lack of physica l exercis e MANDO DANG 07/09 [facility] EXERCISE CLASS [id number] Diagnos is: ICD-10- CM Z72.3 Lack of physica l exercis Carlos Mcgregor 07/12 [facility] EXERCISE CLASS [id number] Diagnos is: ICD-10- CM Z72.3 Lack of physica l exercis Carlos Mcgregor 07/14 [facility] HEARING AID REPAIR/MOD IFYING [id number] [id number] Diagnos is: ICD-10- CM Z46.1 Encount er for fitting and adjustm ent of hearing aid ALEXIA OMER 07/14 [facility] EXERCISE CLASS [id number] Diagnos is: ICD-10- CM Z72.3 Lack of physica l exercis e AG FERNANDEZ 07/16 [facility] EXERCISE CLASS [id number] Diagnos is: ICD-10- CM Z72.3 Lack of physica l exercAG James 07/19 [facility] OFFICE O/P EST LOW 20 MIN [id number] [id number] Diagnos is: ICD-10- CM K61.1 DILAN Hidalgo 07/23 [facility] Social History Combined list of available smoking, tobacco, and other social history from Department of Defense and Veterans Affairs facilities. Social History Type Response Date Comment Source Tobacco smoking status [facility]-TO[facility] NEVER USED 11/11/2023 [facility] History [facility] tobacco use [place] QUIT 15 YRS OR MORE 09/27/2022 [facility] History of tobacco use [place]-TOBACCO FORMER USER 08/30/2021 [facility] History of tobacco use [place]-TOBACCO QUIT 15 YRS OR MORE 08/07/2020 [facility] History of tobacco use [place]-TOBACCO QUIT 15 YRS OR MORE 07/12/2019 [facility] History of tobacco use [place]-TOBACCO FORMER USER 07/03/2018 [facility] History of tobacco use QUIT TOBACCO USE > 7 YEARS AGO 09/01/2017 [facility] History of tobacco use QUIT TOBACCO USE > 7 YEARS AGO 08/29/2016 [facility] History of tobacco use QUIT TOBACCO USE > 7 YEARS AGO 08/15/2015 [facility] History of tobacco use QUIT TOBACCO USE > 7 YEARS AGO 02/20/2007 quit 20 years ago [facility] History of tobacco use NON TOBACCO USER - QUIT >7 YEARS AGO 01/22/2006 [facility] Plan of Care List of future care activities from [facility] facilities. Additional future care activities may be listed in the Assessment and Plan section. Date/Time Care Activity Care Activity Detail Facili ty 07/23/2024 AMBULATORY - MEDICINE AMBULATORY - [facility]ICI [facility] Advance Directives List of completed, amended, or rescinded Advance Directives on record at [facility] facilities. An actual copy of the Directive is not included. Date Advance Directive Provider Source 12/17/2018 [facility]/30/2017 [facility] 12/25/2005 ADVANCE DIRECTIVE IRENA OSEI [facility]
--- OUTSIDE RECORDS SUMMARY | 2024-07-23 11:39 | XMS_ITS ---
Author Name [facility] [place] [facility] [place] [facility] [place] [facility] [place] Address [address] [place] [address] Care Team Providers Care Corporate Law Specialist Name Role Phone DILAN LOPEZ Primary Care [...] O MEDEX BRONZ E Oct 15, 2008 [id number] CARIE MAE PATIENT ANTHEM BCBS OF [place] (BLUECARD) MEDICARE SUPPLEMEN HUMZA MEDEX BRONZ E Feb 14, 2022 [id number] CARIE MAE [place]PP[place]UM[place] MEDEX BRONZ E Feb 14, 2022 [id number] CARIE MAE [place] MEDEX BRONZ E Oct 15, 2008 [id number] CARIE MAE [place] SUPPLEMEN [place]UM[place] MEDEX HEARI NG AND Mar 17, 2019 [id number] CARIE MAE PATIENT MEDICARE (WNR) MEDICARE (M) PART A Oct 15, 2008 PART A [id number] CARIE MAE PATIENT MEDICARE (WNR) MEDICARE (M) PART B Oct 15, 2008 PART B [id number] CARIE MAE PATIENT MEDICARE (WNR) MEDICARE (M) PART A Oct 15, 2008 PART A [id number] CARIE MAE PATIENT MEDICARE (WNR) MEDICARE (M) PART B Oct 15, 2008 PART B [id number] [phone] CARIE MAE PATIENT MEDICARE (WNR) MEDICARE (M) PART A Oct 15, 2008 PART A [id number] [phone] CARIE MAE PATIENT MEDICARE (WNR) MEDICARE (M) PART B Oct 15, 2008 PART B [id number] CARIE MAE PATIENT MEDICARE (WNR) MEDICARE (M) PART A Oct 15, 2008 PART A [id number] CARIE MAE PATIENT MEDICARE (WNR) MEDICARE (M) PART B Oct 15, 2008 PART B [id number] CARIE MAE PATIENT Selected Encounter This [...] - MEDICINE [place] [facility] [facility] Jun 17, 2024 10:30 AM AMBULATORY - MEDICINE [place] [facility] [facility] Jul 14, 2024 02:00 PM AMBULATORY [place] [facility] [facility] [place] [facility] July 23, 2024 09:00 AM AMBULATORY - MEDICINE [facility] [place] [facility] July 26, 2024 10:00 AM AMBULATORY - REHAB MEDICIN E [place] [facility] [facility] Sep 28, 2024 08:30 AM AMBULATORY - MEDICINE [place] [facility] [place] [facility] Nov 17, 2024 01:00 PM [facility]BULAT[facility] Active, Pending, and Scheduled Orders This [...] 01:04 PM Consult Order COMMUNITY CARE-UROLOGY Cons Trimmer Climber's Choice [facility] Lab Results: +/- 30 days [...] Type Comment May 04, 2024 07:49 AM [facility] PSA SERUM Specimen Type: SERUM No comment entered. Ordering Provider: YORDY LOPEZ Report Released Date/Time: Nov 11, 2023 11:31 AM Reporting Lab: [facility] [address] [facility] [address] Performing Lab: [address] [address] PSA 4.75 ng/mL H 0.00-4.00 May 04, 2024 07:49 AM [facility] LIPID PANEL FASTING SERUM Specimen Type: SERU M No comment entered. Ordering Provider: DILAN LOPEZ Report Released Date/Time: Nov 11, 2023 11:31 AM Reporting Lab: [facility] [address] [facility] [address] Performing Lab: [address] [address] CHOLESTEROL 192 mg/dL TRIGLYCERIDE 98 mg/dL 0-150 LDL calculated 130 mg/dL H 0-129 CHOL/HDL 4.6 HDL CHOLESTEROL 42 mg/dL 40-60 May 04, 2024 07:49 AM [facility] LIVER FUNCTION SERUM Specimen Type: SERUM No comment entered. Ordering Provider: DILAN LOPEZ Report Released Date/Time: Nov 11, 2023 11:31 AM Reporting Lab: [address] [address] Performing Lab: [address] [address] PROTEIN,TOTAL 6.9 g/dL 6.0-8.3 ALBUMIN 3.8 g/dL 3.5-5.0 ALKALINE PHOSPHATASE 44 U/L 40-150 AST 16 U/L 5-34 ALT 16 U/L BILIRUBIN, TOTAL 0.3 mg/dL 0.2-1.2 May 04, 2024 07:49 AM [facility] BASIC METABOLIC PANEL (fasting) SERUM Specime n Type: SERUM No comment entered. Ordering Provider: DILAN LOPZE Report Released Date/Time: Nov 11, 2023 11:31 AM Reporting Lab: [address] [address] Performing Lab: [address] [address] UREA NITROGEN 18 mg/dL 7-25 GLUCOSE 100 [...] 03:30 PM 65 140/80 20 98 3 [place] [facility] [facility] May 26, 2024 02:55 PM 74 140/70 20 98 3 [place] [facility] [place] [facility] Social History: Smoking Status (Most current) [...] AM VA-TOBACCO NEVER USED [place] [facility] [facility] Tobacco Use History This section includes a history of the smoking, or tobacco-related health factors, that were collected on or before the date of the Encounter. The data comes from the [place] facility where the Encounter took place. Date/Time Smoking Status/Tobacco Use Comment F acility Sep 27, 2022 10:30 AM VA-TOBACCO FORMER USER [facility] [place] [facility] Sep 27, 2022 10:30 AM VA-TOBACCO QUIT 15 YRS OR MORE [facility] [place] [facility] Aug 30, 2021 09:20 AM VA-TOBACCO FORMER USER [facility] [place] [facility] Aug 30, 2021 09:20 AM VA-TOBACCO QUIT 15 YRS OR MORE [facility] [place] [facility] August 07, 2020 09:00 AM VA-TOBACCO FORMER USER [facility] [place] [facility] August 07, 2020 09:00 AM VA-TOBACCO QUIT 15 YRS OR MORE [facility] [place] [facility] Jul 12, 2019 10:05 AM VA-TOBACCO FORMER USER [facility] [place] [facility] Jul 12, 2019 10:05 AM VA-TOBACCO QUIT 15 YRS OR MORE [facility] Jul 03, 2018 10:51 AM VA-TOBACCO FORMER USER [place] [facility] Jul 03, 2018 10:51 AM VA-TOBACCO QUIT 5 TO < 15 YRS [facility] Sep 01, 2017 10:25 AM QUIT TOBACCO USE > 7 YEARS AGO [facility] Aug 29, 2016 09:22 AM QUIT TOBACCO USE > 7 YEARS AGO [facility] August 15, 2015 02:32 PM QUIT TOBACCO USE > 7 YEARS AGO [facility] Advance Directives: All historical and [...] Dec 17, 2018 ADVANCE DIRECTIVE LIZ HERNANDEZ [facility] May 30, 2017 ADVANCE DIRECTIVE VICTOR MANUEL PAINTING [place] [facility] Dec 25, 2005 ADVANCE DIRECTIVE IRENA OSEI [facility] Radiology Reports: +/- 30 days of [...] FLUOROSCOPIC ARIC NCE OF NEEDLE/SPINE: CARIE MAE [id number] -[id number] M Exm Date: MAY 26, 2024@15:05 Req Phys: LISA LOPEZ Pat Loc: [facility] MED REHAB SPN TERESE ECHEVARRIA (Req' Img Loc: [facility]/BUILDING 1 Service: Unknown [facility] DARREL, CATHERINE [id number] (Case [id number] COMPLETE) FLUOROSCOPIC GUIDANCE OF NEEDLE/S(RAD Detailed) CPT:46524 Reason for Study: transforaminal epidural steroid injection Clinical History: Report Status: Verified Date Reported: MAY 26, 2024 Date Verified: MAY 26, 2024 Industrial Relations Officer E-Sig:/ES/JOSE BEJARANO JR Report: Study: Pain injection [...] Primary Interpreting Staff: JOSE BEJARANO JR, Radiologist (Industrial Relations Officer) /JOSE MOORE JR [facility] Encounter Notes: All associated encounter notes [...] are experiencing problems contact: TELEPHONE ASSISTANCE at [phone] or extension [phone] Or [phone] extension [phone] (YANI Rodriguez) or extension [phone] (WANDER Rodriguez) If you are in an emotional crisis, feeling suicidal or having any troubling or self-destructive or violent impulses - please call [phone] (or [phone]); press 1 for Veterans to ask for [...] time of discharge. /juliann/ LISA LOPEZ DO ROLL SKINNER Signed: 05/26/2024 15:05 LISA LOPEZ [place] [facility]
--- OUTSIDE RECORDS SUMMARY | 2024-07-23 11:39 | XMS_ITS | Encounter Summary ---
Author Name [facility] [place] [facility] [place] Address [address] [place] [address] Care Team Providers Care Gear Machine Operator Name Role Phone DILAN LOPEZ Primary Care [...] O MEDEX BRONZ E Oct 15, 2008 [id number] CARIE MAE PATIENT ANTHEM BCBS OF [place] (BLUECARD) MEDICARE SUPPLEMEN HUMZA MEDEX BRONZ E Feb 14, 2022 [id number] CARIE MAE PATIENT [place] SUPPLEMEN HUMZA MEDEX BRONZ E Feb 14, 2022 [id number] CARIE MAE PAT[place] SUPPLEMEN HUMZA MEDEX BRONZ E Oct 15, 2008 [id number] CARIE MAE PATIENT [place] OF [place] MEDICARE SUPPLEMEN HUMZA MEDEX HEARI NG AND Mar 17, 2019 [id number] CARIE MAE PATIENT MEDICARE (WNR) MEDICARE () PART A Oct 15, 2008 PART A [id number] [phone] [id number] CARIE MAE PATIENT MEDICARE (WNR) MEDICARE () PART B Oct 15, 2008 PART B [id number] CARIE MAE PATIENT MEDICARE (WNR) MEDICARE () PART A Oct 15, 2008 PART A [id number] [phone] [id number] CARIE MAE PATIENT MEDICARE (WNR) MEDICARE () PART B Oct 15, 2008 PART B [id number] [phone] [id number] CARIE MAE PATIENT MEDICARE (WNR) MEDICARE () PART A Oct 15, 2008 PART A [id number] CARIE MAE PATIENT MEDICARE (WNR) MEDICARE () PART B Oct 15, 2008 PART B [id number] CARIE MAE PATIENT MEDICARE (WNR) MEDICARE () PART A Oct 15, 2008 PART A [id number] CARIE MAE PATIENT MEDICARE (WNR) MEDICARE () PART B Oct 15, 2008 PART B [id number] CARIE MAE PATIENT Selected Encounter This section includes the information on record at [place] for the Encounter. Date/Time Encounter Type Encounter Description Reason Provider Source May 14, 2024 01:30 PM OFFICE O/P EST MOD 30 MIN OPTOMETRY ICD-10-CM H40.1131 Primary open-angle glaucoma, bilateral, mild stage BERNICE MUIR E Encounter Template Text not used by [place] Assessments - Encounter Diagnoses This section includes the primary and secondary diagnoses documented for the Encounter. Date/Time Primary/Secondary Diagnosis Diagnosis Name Provider Source May 14, 2024 04:30 PM PRIMARY Primary open-angle glaucoma, bilateral, mild stage BERNICE MUIR [place] [facility] [place] [facility] May 14, 2024 04:30 PM SECONDARY Combined forms of age-related cataract, bilateral BERNICE MUIR [place] [facility] May 14, 2024 04:30 PM SECONDARY Dry eye syndrome of bilateral lacrimal glands BERNICE MUIR [place] [facility] [place] [facility] May 14, 2024 04:30 PM SECONDARY Other optic atrophy, right eye BERNICE MUIR [place] [facility] May 14, 2024 04:30 PM SECONDARY Presbyopia [facility] Plan of Treatment: Future Appointments (+ 6 months) and Future Tests (+/- 45 days) The Plan of Treatment section includes future care activities for the patient from all [place] [facility]. This section includes future appointments and future orders which are active, pending or scheduled. Future Appointments This section includes appointments that were scheduled to occur 6 months from the date of the Encounter, up to a maximum of 20 appointments. The data comes from all [facility]. Appointment Date/Time Appointment Type Appointme nt Facility Name May 18, 2024 08:00 AM AMBULATORY [place]ICINE [place] [facility] May 26, 2024 02:30 PM AMBULATORY - REHAB MEDICIN [place] [facility] [place] [facility] Jun 03, 2024 10:00 AM AMBULATORY [place]IC[place] [facility] Jun 17, 2024 10:30 AM AMBULATORY [place] MEDICINE [place] [facility] Jul 14, 2024 02:00 PM AMBULATORY - REHAB MEDICIN E [place] [facility] [place] [facility] July 23, 2024 09:00 AM AMBULATORY - MEDICINE [place] [facility] July 26, 2024 10:00 AM AMBULATORY - REHAB MEDICIN E [place] [facility] [facility] Sep 28, 2024 08:30 AM AMBULATORY - MEDICINE [facility] Active, Pending, and Scheduled Orders This section includes a listing of several types of active, pending, and scheduled orders, including clinic medications orders, diagnostic test orders, procedure orders and consult orders; where the start date of the order is 45 days before the date of the Encounter or 45 days after the date of theEncounter. The data comes from all [facility] treatment facilities. Test Date/Time Test Type Test Details Facility Name Apr 21, 2024 01:04 PM Consult Order [facility] Cons Roof Foreman's Choice [facility] Lab Results: +/- 30 days of the encounter This section includes the Chemistry and Hematology Lab Results on record with [place] for the patient. Radiology Reports and Pathology Reports are provided separately, in subsequent sections. Lab Results This section contains the Chemistry/Hematology Results that were resulted 30 days before or 30 daysafter the date of the Encounter. Date/Time Source Result Type Result - Unit Interpretation Reference Range Specimen Type Comment May 04, 2024 07:49 AM [facility] PSA SERUM Specimen Type: SERUM No comment entered. Ordering Provider: YORDY LOPEZ Report Released Date/Time: Nov 11, 2023 11:31 AM Reporting Lab: [facility] [address] Performing Lab: [facility] [address] [address] PSA 4.75 ng/mL H 0.00-4.00 May 04, 2024 07:49 AM [facility] LIPID PANEL FASTING SERUM Specimen Type: SERU M No comment entered. Ordering Provider: DILAN LOPEZ Report Released Date/Time: Nov 11, 2023 11:31 AM Reporting Lab: [facility] [address] Performing Lab: [facility] [address] CHOLESTEROL 192 mg/dL TRIGLYCERIDE 98 mg/dL 0-150 LDL calculated 130 mg/dL H 0-129 CHOL/HDL 4.6 HDL CHOLESTEROL 42 mg/dL 40-60 May 04, 2024 07:49 AM [facility] LIVER FUNCTION SERUM Specimen Type: SERUM No comment entered. Ordering Provider: DILAN LOPEZ Report Released Date/Time: Nov 11, 2023 11:31 AM Reporting Lab: [facility] [address] [address] Performing Lab: [facility] [address] [facility] [address] PROTEIN,TOTAL 6.9 g/dL 6.0-8.3 ALBUMIN 3.8 g/dL 3.5-5.0 ALKALINE PHOSPHATASE 44 U/L 40-150 AST 16 U/L 5-34 ALT 16 U/L BILIRUBIN, TOTAL 0.3 mg/dL 0.2-1.2 May 04, 2024 07:49 AM [facility] BASIC METABOLIC PANEL (fasting) SERUM Specime n Type: SERUM No comment entered. Ordering Provider: DILAN LOPEZ Report Released Date/Time: Nov 11, 2023 11:31 AM Reporting Lab: [facility] [address] [facility] [address] Performing Lab: [facility] [address] [facility] [address] UREA NITROGEN 18 mg/dL 7-25 GLUCOSE 100 [...] and tobacco- related health factors from the [place] facility where the Encounter took place. Current Smoking Status This section includes the most current smoking, or tobacco-related health factor, from the [place] facility where the Encounter took place. Date/Time Current Smoking Status Comment Leona ity Nov 11, 2023 11:00 AM VA-TOBACCO NEVER USED [facility] Tobacco Use History This section includes a history of the smoking, or tobacco-related health factors, that were collected on or before the date of the Encounter. The data comes from the [place] facility where the Encounter took place. Date/Time Smoking Status/Tobacco Use Comment F acility Sep 27, 2022 10:30 AM VA-TOBACCO FORMER USER [facility] Sep 27, 2022 10:30 AM VA-TOBACCO QUIT 15 YRS OR MORE [place] [facility] [place] [facility] Aug 30, 2021 09:20 AM VA-TOBACCO FORMER USER [facility] [place] [facility] Aug 30, 2021 09:20 AM VA-TOBACCO QUIT 15 YRS OR MORE [facility] [place] [facility] August 07, 2020 09:00 AM VA-TOBACCO FORMER USER [facility] [place] [facility] August 07, 2020 09:00 AM VA-TOBACCO QUIT 15 YRS OR MORE [facility] [place] [facility] Jul 12, 2019 10:05 AM VA-TOBACCO FORMER USER [place] [facility] [place] [facility] Jul 12, 2019 10:05 AM VA-TOBACCO QUIT 15 YRS OR MORE [place] [facility] [place] [facility] Jul 03, 2018 10:51 AM VA-TOBACCO FORMER USER [place] [facility] [place] [facility] Jul 03, 2018 10:51 AM VA-TOBACCO QUIT 5 TO < 15 YRS [place] [facility] [place] [facility] Sep 01, 2017 10:25 AM QUIT TOBACCO USE > 7 YEARS AGO [place] [facility] [place] [place] [facility] Aug 29, 2016 09:22 AM QUIT TOBACCO USE > 7 YEARS AGO [place] [facility] [place] [facility] August 15, 2015 02:32 PM QUIT TOBACCO USE > 7 YEARS AGO [place] [facility] [place] [place] [facility] Advance Directives: All historical and current Section Date Range: From patient's date of to the date document was created. This section includes ALL of a patient's completed or amended [place] Advance and Rescinded Directives. The entries below indicate that a directive exists for the patient, but an actual copy is not included with this document. The data comes from all [place] facilities. Date Advance Directives Provider Source Dec 17, 2018 ADVANCE DIRECTIVE LIZ HERNANDEZ [place] [facility] [facility] May 30, 2017 ADVANCE DIRECTIVE VICTOR MANUEL PAINTING [facility] [place] [facility] Dec 25, 2005 ADVANCE DIRECTIVE IRENA OSEI [facility] Radiology Reports: +/- 30 days of the [...] the Encounter. The data comes from all [place] treatment facilities. Date/Time Radiology Report Provider Source May 26, 2024 03:05 PM FLUOROSCOPIC ARIC NCE OF NEEDLE/SPINE: CARIE MAE [id number] -[id number] M Exm Date: MAY 26, 2024@15:05 Req Phys: LISA LOPEZ BRITTNEY THI Pat Loc: [facility] MED REHAB SPN INJ (Req' Img Loc: [facility]/BUILDING 1 Service: [place] [address] (Case [id number] COMPLETE) FLUOROSCOPIC GUIDANCE OF NEEDLE/S(RAD Detailed) CPT:36286 Reason for Study: transforaminal epidural steroid injection Clinical History: Report Status: Verified Date Reported: MAY 26, 2024 Date Verified: MAY 26, 2024 Glass Processing Worker E-Sig:/ES/JOSE BEJARANO JR Report: Study: Pain injection [...] Primary Interpreting Staff: JOSE BEJARANO JR, Radiologist (Glass Processing Worker) /JOSE MOORE JR [facility] Encounter Notes: All associated encounter notes [...] Dir: Prz2:0.00 Dir2: FITTING INFORMATION FPD: NPD: [place]:R:34 L:33.5 SEG HT:R:19 L:19 Tint:None Shade:None VA Billable Items FRAME: FX27 AirTouch CommunicationsMETAL [id number] Right Lens: TRIVEX VA PROGRESSIVE TRIVEX Left Lens: TRIVEX VA PROGRESSIVE TRIVEX BALANCE LENS OD 0.00 0.00 X Add:+3.00 Pzm:0.00 Dir: Prz2:0.00 Dir2: OS +4.00 -1.75 X105 Add:+3.00 Pzm:0.00 Dir: Prz2:0.00 Dir2: FITTING INFORMATION FPD: NPD: [place]:R:34 L:33.5 SEG HT:R:19 L:19 Tint:YELLOW Shade:2 VA Billable Items FRAME: FX27 GUNMETAL [id number] Right Lens: TRIVEX VA PROGRESSIVE TRIVEX Left Lens: TRIVEX VA PROGRESSIVE TRIVEX BALANCE LENS SOLID TINT OD 0.00 0.00 X Add:+3.00 Pzm:0.00 Dir: Prz2:0.00 Dir2: OS +4.00 -1.75 X105 Add:+3.00 Pzm:0.00 Dir: Prz2:0.00 Dir2: FITTING INFORMATION FPD: NPD: [place]:R:34 L:33.5 SEG HT:R:19 L:19 Tint:NAGEL Shade:3 VA Billable Items FRAME: FX27 [facility] [id number] Right Lens: TRIVEX VA PROGRESSIVE TRIVEX Left Lens: TRIVEX VA PROGRESSIVE TRIVEX BALANCE LENS SOLID TINT /camilo MUIR OD BIOLOGICAL SCIENTIST Signed: 05/14/2024 16:31 Receipt Acknowledged By: 05/17/2024 16:08 /camilo LEON OPTOMETRY TECH 05/17/2024 ADDENDUM STATUS: COMPLETED [facility] ordered patient 3 pair(s) of PAL eyeglasses on 05/14/2024 as directed by provider. OPT HT entered consult(s) for order on behalf of provider. /camilo LEON OPTOMETRY TECH Signed: 05/17/2024 16:11 BERNICE MUIR [facility] [place] [facility] May 14, 2024 08:10 AM OPTOMETRY NOTE: LOCAL TITLE: OPTOMETRY NOTE STANDARD TITLE: OPTOMETRY NOTE DATE OF NOTE: MAY 14, 2024@08:10 ENTRY DATE: MAY 14, 2024@08:10:23 AUTHOR: BERNICE MUIR EXP COSIGNER: URGENCY: STATUS: COMPLETED Eye Examination for: CARIE MAE, 78 year old WHITE MALE ARLETH: 5 [facility], 7 Dr. Navin Reason for Visit/CC: Patient here for CEE. 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, Ischemic (ICD-9-CM 377.41) V12.72 Personal History of Colonic Polyps (ICD-9-CM V12.72) 719.41 Pain in joint involving shoulder region (ICD-9-CM 719.41) 530.81 Gastroesophageal Reflux Disorder (ICD-9-CM 530.81) 278.00 Obesity (ICD-9-CM 278.00) 715.90 Osteoarthrosis, unspecified whether generalized or localized, involving unspecif (ICD-9-CM 715.90) I11.9 Benign essential hypertension ([facility] [id number]) 696.1 Psoriasis (ICD-9-CM 696.1) 722.2 Herniated Disc (ICD-9-CM 722.2) D07.5 Prostate cancer ([facility] [id number]) SYSTEMIC MEDICATIONS/OCULAR MEDICATIONS: Active Outpatient Medications (including [...] BCVA: NHM OD: Balance Light Perception OS: +3.50-1.03h230 20/20 Add: +3.00 20/20 Current Rx with last BCVA: Dr. Holden 7.17.24 OD: Balance OS: +4.00-1.60a548 Add: +3.00 DVA ( )sc ( x )cc - [x]phoropter []specs []CL OD: bare HM @1' OS: 20/20-1 Entrance Testing: Pupil: PERRL (-)APD EOM: SAFE OU, (-)Pain/Diplopia CVF: FTFC OU Subjective Refraction: OD: BALANCE HM OS: +4.00-1.76x202 20/20+2 Add: +3.00 SLE: Lids/Lashes: dermatochalasis OU [...] medications -Stress importance of continued follow-up appointments -[place] repeated back the plan and education. -RTC [...] if vision declines or interferes with ADLs - repeated back the plan and education. -Monitor 4. Dry Eye Syndrome OU - symptomatic -Pt ed re today's findings -Recommend Artificial Tears QID OU -Recommend Lubricating ointment QHS OU -[place] repeated back the plan and education. -Monitor [...] of active outpatient prescriptions dispensed from this [place] (local) and dispensed from another [place] or [facility] facility (remote) as well as inpatient [...] (Tool #5) FACILITY ALLERGY/ADR -------- [facility] CONTRAST MEDIA [facility] B[facility] [place] [facility] CONTRAST MEDIA Med. Reconciliation (Tool #1) INCLUDED IN THIS LIST: Alphabetical list of active outpatient prescriptions dispensed from this [place] (local) and dispensed from another VA or [facility]D facility (remote) as well as inpatient orders (local pending and active), local clinic medications, locally documented non-VA medications, and local prescriptions that have or been discontinued in the past 90 days. Non-VA Meds Last Documented On: Jul 15, 2023 NOTE The display of VA prescriptions dispensed from another VA or DoD facility (remote) is limited to active outpatient prescription entries matched to National Drug File at the originating site and may not include some items such as investigational drugs, compounds, etc. NOT INCLUDED IN THIS LIST: Medications self-entered by the patient into personal health records (i.e. [facility] Payments) are NOT included in this list. Non-VA medications documented outside this VA, remote inpatient orders (regardless of status) and remote clinic medications are NOT included in this list. The patient and provider must always discuss medications the patient is taking, regardless of where the medication was dispensed or obtained. -------- OUTPT APIXABAN 5MG TAB (Status = Active) TAKE ONE TABLET BY MOUTH TWICE DAILY Rx# [id number] Last Released: 03/11/24 Qty/Days Supply: Rx Expiration Date: 08/27/24 Refills Remainin OUTPT CARBOXYMETHYLCELLULOSE NA 0.5% OPH SOLN (Status = Active/Suspended) INSTILL 1 DROP INTO EACH EYE FOUR TIMES A DAY FOR DRY EYE Rx# [id number] Last Released: Days Supply: 45 Rx Expiration Date: 05/15/25 Refills Remainin Indication: FOR DRY EYE OUTPT CEPHALEXIN 500MG CAP (Status = Discontinued) TAKE ONE CAPSULE BY MOUTH EVERY 8 HOURS FOR INFECTION CAUSED BY BACTERIA FOR INFECTION Rx# [id number] Last Released: 03/22/24 Qty/Days Supply: 04/10 Rx Expiration Date: 04/21/24 Refills Remainin Indication: FOR INFECTION CAUSED BY BACTERIA OUTPT DAROLUTAMIDE 300MG TAB (Status = Active) TAKE TWO TABLETS BY MOUTH TWICE DAILY Rx# [id number] Last Released: 05/11/24 Qty/Days Supply: 120/30 Rx Expiration Date: 04/20/25 Refills Remainin Non-VA DENOSUMAB (PROLIA) PA-F INJ,SOLN INJECT OUTPT HYDROCHLOROTHIAZIDE 12.5MG CAP (Status = Active) TAKE ONE CAPSULE BY MOUTH EVERY MORNING FOR HIGH BLOOD PRESSURE Rx# [id number] Last Released: 05/08/24 Qty/Days Supply: 90 Rx Expiration Date: 12/18/24 Refills Remainin Indication: FOR HIGH BLOOD PRESSURE OUTPT LIDOCAINE 5% OINT (Status = Discontinued) APPLY SMALL AMOUNT TOPICALLY FOUR TIMES DAILY NEEDED FOR LEFT SHOULDER PAIN Rx# [id number] Last Released: 02/04/24 Qty/Days Supply: Rx Expiration Date: 11/11/24 Refills Remainin Indication: FOR LEFT SHOULDER PAIN OUTPT LIDOCAINE 5% OINT (Status = Active) APPLY SMALL AMOUNT TOPICALLY FOUR TIMES DAILY NEEDED FOR LEFT SHOULDER PAIN Rx# [id number] Last Released: 05/10/24 Qty/Days Supply: 35 Rx Expiration Date: 04/15/25 Refills Remainin Indication: FOR LEFT SHOULDER PAIN OUTPT LIDOCAINE 5% PATCH (Status = Discontinued) APPLY 1 PATCH TOPICALLY ONCE DAILY NEEDED FOR LOW BACK PAIN (LEAVE PATCH ON FOR 12 HOURS, THEN REMOVE PATCH) Rx# [id number] Last Released: 02/19/24 Qty/Days Supply: Rx Expiration Date: 11/11/24 Refills Remainin Indication: FOR LOW BACK PAIN OUTPT LIDOCAINE 5% PATCH (Status = Active/Suspended) APPLY 2 PATCHES TOPICALLY ONCE DAILY NEEDED FOR LOW BACK PAIN (LEAVE PATCH ON FOR 12 HOURS, THEN REMOVE PATCH) Rx# [id number] Last Released: 05/05/24 Qty/Days Supply: Rx Expiration Date: 05/05/25 Refills Remainin Indication: FOR LOW BACK PAIN OUTPT LISINOPRIL 20MG TAB (Status = Active/Suspended) TAKE ONE TABLET BY MOUTH TWICE DAILY TO CONTROL BLOOD PRESSURE Rx# [id number] Last Released: 02/27/24 Qty/Days Supply: 180 Rx Expiration Date: 12/18/24 Refills Remainin Indication: FOR HIGH BLOOD PRESSURE OUTPT LUBRICATING (PF) OPH OINT (Status = Active/Suspended) APPLY THIN RIBBON INTO EACH EYE AT BEDTIME FOR DRY EYE Rx# [id number] Last Released: Qty/Days Supply: Rx Expiration Date: 05/15/25 Refills Remainin Indication: FOR DRY EYE OUTPT MIRABEGRON 25MG SA TAB (Status = Active) TAKE ONE TABLET BY MOUTH ONCE DAILY Rx# [id number] Last Released: 11/13/23 Qty/Days Supply: Rx Expiration Date: 11/11/24 Refills Remainin Non-VA VITAMIN D3 (CHOLECALCIFEROL) TAB TAKE BY MOUTH -------- SUPPLIES -------- PHARMACY TERMS AND POSSIBLE PATIENT ACTIONS INPT = [place] inpatient order IV = [place] intravenous medication OUTPT = [place] outpatient prescription PHARMACY POSSIBLE PATIENT TERMS EXPLANATION ACTIONS -------- ACTIVE A prescription that can be If you have refills, filled at the local [place] pharmacy. you may request a refill of this prescription from your [place] pharmacy. CLINIC A medication you received during If you have questions a visit to a VA clinic or about this medication emergency department. contact your VA healthcare team. DISCONTINUED A prescription your provider has Contact your VA stopped. It is no longer healthcare team if you available to be sent to you or need more of this picked up at the [place] pharmacy medication. window. A prescription which is [...] the VA. Or, it may be an nofb-ulu-cjnbbvc (OTC), herbal, dietary supplements or sample medication. [...] Medication Reconciliation List Offered and Declined by [place] () Medication Reconciliation List Printed for [place] at Exam () Optometry HT Please Print and Mail Copy of Medication Reconciliation List () AMSA Please Print and Mail Copy of Medication Reconciliation List /es/ BERNICE MUIR OD BIOLOGICAL SCIENTIST Signed: 05/14/2024 16:31 BERNICE MUIR [place] [facility]
--- OUTSIDE RECORDS SUMMARY | 2024-07-23 11:39 | XMS_ITS | Encounter Summary ---
Author Name Department of [place] ([place]) Organization [facility] Address [address] [place] [address] Care Team Providers Care Senior Net Application Developer Name Role Phone DILAN LOPEZ Primary Care [...] O MEDEX BRONZ E Oct 15, 2008 [id number] [phone] CARIE MAE PATIENT ANTHEM BCBS OF [place] (BLUECARD) MEDICARE SUPPLEMEN HUMZA MEDEX BRONZ E Feb 14, 2022 [id number] [phone] CARIE MAE PATIENT BCBS DE MEDICARE SUPPLEMEN HUMZA MEDEX BRONZ E Feb 14, 2022 [id number] CARIE MAE PATIENT [place]BS [place] MED[place] SUPPLEMEN HUMZA MEDEX BRONZ E Oct 15, 2008 [id number] CARIE MAE PATIENT [place] OF [place] MEDICARE SUPPLEMEN HUMZA MEDEX HEARI NG AND Mar 17, 2019 [id number] CARIE MAE PATIENT MEDICARE (WNR) MEDICARE (M) PART A Oct 15, 2008 PART A [id number] CARIE MAE PATIENT MEDICARE (WNR) MEDICARE (M) PART B Oct 15, 2008 PART B [id number] CARIE MAE PATIENT MEDICARE (WNR) MEDICARE (M) PART A Oct 15, 2008 PART A [id number] CARIE MAE PATIENT MEDICARE (WNR) MEDICARE (M) PART B Oct 15, 2008 PART B [id number] CARIE MAE PATIENT MEDICARE (WNR) MEDICARE (M) PART A Oct 15, 2008 PART A [id number] CARIE MAE PATIENT MEDICARE (WNR) MEDICARE (M) PART B Oct 15, 2008 PART B [id number] CARIE MAE PATIENT MEDICARE (WNR) MEDICARE (M) PART A Oct 15, 2008 PART A [id number] CARIE MAE PATIENT MEDICARE (WNR) MEDICARE (M) PART B Oct 15, 2008 PART B [id number] CARIE MAE PATIENT Selected Encounter This section includes the information on record at [place] for the Encounter. Date/Time Encounter Type Encounter Description Reason Pro vider Source Jan 29, 2024 11:54 AM Outpatient Encounter CLINICAL PHARMACY IHE Encounter Template Text not used by [place] Plan of Treatment: Future Appointments (+ 6 months) and Future Tests (+/- 45 days) The Plan of Treatment section includes future care activities for the patient from all [place] treatmentfacilities. This section includes future appointments and future orders which are active, pending or scheduled. Future Appointments This section includes appointments that were scheduled to occur 6 months from the date of the Encounter, up to a maximum of 20 appointments. The data comes from all [place] treatment facilities. Appointment Date/Time Appointment Type Appointme nt Facility Name Feb 02, 2024 09:00 AM AMBULATORY - REH[facility] MEDICIN E [facility] [place] [facility] Feb 26, 2024 08:00 AM AMBULAT[facility]ICIN [facility] [place] [facility] Mar 22, 2024 08:00 AM AMBULATORY - MEDICINE [facility] [place] [facility] Mar 22, 2024 08:30 AM AMBULATORY - MEDICINE [facility] [place] [facility] Apr 14, 2024 09:00 AM AMBULATORY - REHAB MEDICIN E [facility] [place] [facility] Apr 19, 2024 09:00 AM AMBULATORY - MEDICINE [facility] [place] [facility] Apr 21, 2024 10:00 AM AMBULATORY - MEDICINE [facility] [place] [facility] May 14, 2024 01:30 PM AMBULATORY - MEDICINE [facility] [place] [facility] May 18, 2024 08:00 AM AMBULATORY - MEDICINE [facility] [place] [facility] May 26, 2024 02:30 PM AMBULATORY - REHAB MEDICIN E [facility] [place] [facility] Jun 03, 2024 10:00 AM AMBULATORY - MEDICINE [facility] [place] [facility] Jun 17, 2024 10:30 AM AMBULATORY - MEDICINE [facility] [place] [facility] Jul 14, 2024 02:00 PM AMBULATORY - REHAB MEDICIN E [facility] [place] [facility] July 23, 2024 09:00 AM AMBULATORY - MEDICINE [facility] [place] [facility] July 26, 2024 10:00 AM AMBULATORY - REHAB MEDICIN E [facility] [place] [facility] Lab Results: +/- 30 days of the encounter This section includes the Chemistry and Hematology Lab Results on record with [place] for the patient. Radiology Reports and Pathology Reports are provided separately, in subsequent sections. Lab Results This section contains the Chemistry/Hematology Results that were resulted 30 days before or 30 daysafter the date of the Encounter. Date/Time Source Result Type Result - Unit Interpretation Reference Range Specimen Type Comment Jan 28, 2024 10:48 AM [facility] [place] [facility] BASIC METABOLIC PANEL (fasting) SERUM Specime n Type: SERUM No comment entered. Ordering Provider: VANWAGNER,WILLI AM F Report Released Date/Time: Dec 10, 2023 01:06 PM Reporting Lab: [facility] [address] [address] Performing Lab: [address] [address] UREA NITROGEN 15 mg/dL 7-25 GLUCOSE 86 mg/dL 65-100 SODIUM 140 mmol/L 135-145 POTASSIUM 4.3 mmol/L 3.5-5.0 CHLORIDE 104 mmol/L 100-110 CO2 22 meq/L 20-30 CREATININE, Serum 0.92 mg/dL 0.50-1.40 eGFR(CKD-EPI 2020) 84 mL/min >60 Jan 28, 2024 10:47 AM [facility] CREATININE (eGFR 2020) SERUM Specimen Type: S JOSEFA No comment entered. Ordering Provider: EZEQUIEL ANDRE Report Released Date/Time: Jan 12, 2024 09:43 AM Reporting Lab: [address] [address] Performing Lab: [address] [address] CREATININE, Serum 0.91 mg/dL 0.50-1.40 eGFR(CKD-EPI 2020) 85 mL/min >60 Jan 28, 2024 10:47 AM [facility] CBC BLOOD Specimen Type: BLOOD No comment entered. Ordering Provider: EZEQUIEL ANDRE Report Released Date/Time: Jan 12, 2024 09:43 AM Reporting Lab: [address] [address] Performing Lab: [address] [address] WBC 7.04 10*3/uL 4.50-11.00 RBC 4.72 10*6/uL 4.23-5.66 HGB 13.3 g/dL 12.8-17 HCT 40.9 39.2-50.4 MCV 86.7 fL 82-99 MCHC 32.5 g/dL 30.8-35.1 PLT 221 10*3/uL 140-360 RDW-CV 13.7 12.0-16.0 MCH 28.2 pg 26.2-32.6 Advance Directives: All historical and current Section Date Range: From patient's date of to the date document was created. This section includes ALL of a patient's completed or amended [place] Advance and Rescinded Directives. The entries below indicate that a directive exists for the patient, but an actual copy is not included with this document. The data comes from all [place] facilities. Date Advance Directives Provider Source Dec 17, 2018 ADVANCE DIRECTIVE KAWLIZ [facility] May 30, 2017 ADVANCE DIRECTIVE VICTOR MANUEL PAINTING [facility] Dec 25, 2005 ADVANCE DIRECTIVE IRENA OSEI-J[facility]Y [facility] Encounter Notes: All associated encounter notes This section contains the clinical notes associated to the Encounter. Date/Time Encounter Note(s) Provider Source Jan 29, 2024 11:54 AM LETTERS: LOCAL TITLE: PATIENT LETTER (T) STANDARD TITLE: LETTERS DATE OF NOTE: JAN 29, 2024@11:54 ENTRY DATE: JAN 29, 2024@11:55:09 AUTHOR: EZEQUIEL ANDRE COSIGNER: URGENCY: STATUS: COMPLETED DEPARTMENT OF [facility] Toll Free Number Primary Care Telephone Assistance can be reached at extension [phone] [facility] scheduling can be reached at extension [phone] [facility] scheduling can be reached at ext [phone] CARIE MAE [address], [place], [address] Dear , Thank you for coming in [...] 221 221 K/cmm 140 - 360 SERUM Nov Jan 27 Nov 05 Jul 14 Reference 2023 2023 2023 2023 10:48 10:47 07:55 11:21 Units Ranges CREATININE 0.92 0.91 0.89 1.01 mg/dL .5 - 1.4 If you have questions, please call the [place] [facility] at the following number(s): [phone] ext. [phone] ext [phone] Sincerely, Your Primary Care Team [facility] [address] [place] [address] [place] [address] [phone] [facility] [address] [place] [address] [place] [address] [phone] [facility] [address] [place] [address] [place] [address] [phone] EZEQUIEL ANDRE CBOC
--- OUTSIDE RECORDS SUMMARY | 2024-07-23 11:39 | XMS_ITS | Encounter Summary ---
Author Name Department [place] Organization Department [place] Address [address] [place] [address] Care Team Providers Care Theatrical Dresser Name Role Phone DILAN LOPEZ Primary Care [...] O MEDEX BRONZ E Oct 15, 2008 [id number] CARIE MAE PATIENT ANTHEM BCBS OF CT (BLUECARD) MEDICARE SUPPLEMEN HUMZA MEDEX BRONZ E Feb 14, 2022 [id number] [phone] CARIE MAE PATIENT BCBS [place] MEDICARE SUPPLEMEN HUMZA MEDEX BRONZ E Feb 14, 2022 [id number] [phone] CARIE MAE PATIENT BCBS PR MEDICARE SUPPLEMEN HUMZA MEDEX BRONZ E Oct 15, 2008 [id number] [phone] CARIE MAE PATIENT [place] OF [place] SUPPLEMEN HUMZA MEDEX HEARI NG AND Mar 17, 2019 [id number] CARIE MAE PATIENT MEDICARE (WNR) MEDICARE (M) PART A Oct 15, 2008 PART A [id number] CARIE MAE PATIENT MEDICARE (WNR) MEDICARE (M) PART B Oct 15, 2008 PART B [id number] CARIE MAE PATIENT MEDICARE (WNR) MEDICARE (M) PART A Oct 15, 2008 PART A [id number] CARIE MAE PATIENT MEDICARE (WNR) MEDICARE (M) PART B Oct 15, 2008 PART B [id number] [phone] CARIE MAE PATIENT MEDICARE (WNR) MEDICARE (M) PART A Oct 15, 2008 PART A [id number] 65A CARIE MAE PATIENT MEDICARE (WNR) MEDICARE (M) PART B Oct 15, 2008 PART B [id number] 65A CARIE MAE PATIENT MEDICARE (WNR) MEDICARE (M) PART A Oct 15, 2008 PART A [id number] CARIE MAE PATIENT MEDICARE (WNR) MEDICARE (M) PART B Oct 15, 2008 PART B [id number] CARIE MAE PATIENT Selected Encounter This section includes the information on record at [place] for the Encounter. 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 Date/Time Primary/Secondary Diagnosis Diagnosis Name Provider Source Apr 27, 2024 08:31 AM PRIMARY Carcinoma in situ of prostate [facility]ETTE ORTA [place] [facility] [place] [facility] Plan of Treatment: Future Appointments (+ 6 months) and Future Tests (+/- 45 days) The Plan of Treatment section includes future care activities for the patient from all [place] [facility]. This section includes future appointments and future orders which are active, pending or scheduled. Future Appointments This section includes appointments that were scheduled to occur 6 months from the date of the Encounter, up to a maximum of 20 appointments. The data comes from all [facility]. Appointment Date/Time Appointment Type Appointme nt Facility Name May 14, 2024 01:30 PM AMBULATORY - MEDICINE [place] [facility] [place] [facility] May 18, 2024 08:00 AM AMBULATORY - MEDICINE [place] [facility] [place] [facility] May 26, 2024 02:30 PM AMBULATORY - REHAB MEDICIN E [place] [facility] [place] [facility] Jun 03, 2024 10:00 AM AMBULATORY - MEDICINE [place] [facility] [place] [facility] Jun 17, 2024 10:30 AM AMBULATORY - MEDICINE [place] [facility] [place] [facility] Jul 14, 2024 02:00 PM AMBULATORY - REHAB MEDICIN E [place] [facility] [place] [facility] July 23, 2024 09:00 AM AMBULATORY - MEDICINE [place] [facility] [facility] July 26, 2024 10:00 AM AMBULATORY - REHAB MEDICIN E [place] [facility] [place] [facility] Sep 28, 2024 08:30 AM AMBULATORY - MEDICINE [place] [facility] [place] [facility] Active, Pending, and Scheduled Orders This section includes a listing of several types of active, pending, and scheduled orders, including clinic medications orders, diagnostic test orders, procedure orders and consult orders; where the start date of the order is 45 days before the date of the Encounter or 45 days after the date of theEncounter. The data comes from all [facility]. Test Date/Time Test Type Test Details Facility Name Apr 21, 2024 01:04 PM Consult Order COMMUNITY CARE-UROLOGY Cons Elementary Art Teacher's Choice [facility] [place] [facility] Lab Results: +/- 30 days of the encounter This section includes the Chemistry and Hematology Lab Results on record with [place] for the patient. Radiology Reports and Pathology Reports are provided separately, in subsequent sections. Lab Results This section contains the Chemistry/Hematology Results that were resulted 30 days before or 30 daysafter the date of the Encounter. Date/Time Source Result Type Result - Unit Interpretation Reference Range Specimen Type Comment May 04, 2024 07:49 AM [facility] LIPID PANEL FASTING SERUM Specimen Type: SERUM No comment entered. Ordering Provider: YORDY LOPEZ Report Released Date/Time: Nov 11, 2023 11:31 AM Reporting [facility] [address] [address] Performing Lab: [facility] [address] [facility] [address] CHOLESTEROL 192 mg/dL TRIGLYCERIDE 98 mg/dL 0-150 LDL calculated 130 mg/dL H 0-129 CHOL/HDL 4.6 HDL CHOLESTEROL 42 mg/dL 40-60 May 04, 2024 07:49 AM [facility] PSA SERUM Specimen Type: SERUM No comment entered. Ordering Provider: DILAN LOPEZ Report Released Date/Time: Nov 11, 2023 11:31 AM Reporting Lab: [facility] [address] [facility] [facility] [address] Performing Lab: [facility] [address] [facility] [facility] [address] PSA 4.75 ng/mL H 0.00-4.00 May 04, 2024 07:49 AM [facility] LIVER FUNCTION SERUM Specimen Type: SERUM No comment entered. Ordering Provider: DILAN LOPEZ Report Released Date/Time: Nov 11, 2023 11:31 AM Reporting Lab: [facility] [address] [facility] [address] Performing Lab: [facility] [address] [facility] [address] PROTEIN,TOTAL 6.9 g/dL 6.0-8.3 ALBUMIN 3.8 g/dL 3.5-5.0 ALKALINE PHOSPHATASE 44 U/L 40-150 AST 16 U/L 5-34 ALT 16 U/L BILIRUBIN, TOTAL 0.3 mg/dL 0.2-1.2 May 04, 2024 07:49 AM [facility] BASIC METABOLIC PANEL (fasting) SERUM Specime n Type: SERUM No comment entered. Ordering Provider: DILAN LOPEZ Report Released Date/Time: Nov 11, 2023 11:31 AM Reporting Lab: [facility] [address] [facility] [address] Performing Lab: [facility] [address] [address] UREA NITROGEN 18 mg/dL 7-25 GLUCOSE 100 [...] 11, 2023 11:00 AM VA-TOBACCO NEVER USED [facility] Tobacco Use History This section includes a history of the smoking, or tobacco-related health factors, that were collected on or before the date of the Encounter. The data comes from the [place] facility where the Encounter took place. Date/Time Smoking Status/Tobacco Use Comment F acility Sep 27, 2022 10:30 AM VA-TOBACCO FORMER USER [place] [facility] [facility] Sep 27, 2022 10:30 AM VA-TOBACCO QUIT 15 YRS OR MORE [facility] [place] [facility] Aug 30, 2021 09:20 AM VA-TOBACCO FORMER USER [place] [facility] [place] [facility] Aug 30, 2021 09:20 AM VA-TOBACCO QUIT 15 YRS OR MORE [facility] August 07, 2020 09:00 AM VA-TOBACCO FORMER [facility]ER [facility] August 07, 2020 09:00 AM VA-TOBACCO QUIT 15 YRS OR MORE [place] [facility] [place] [facility] Jul 12, 2019 10:05 AM VA-TOBACCO FORMER USER [place] [facility] [place] [facility] Jul 12, 2019 10:05 AM VA-TOBACCO QUIT 15 YRS OR MORE [place] [facility] Jul 03, 2018 10:51 AM VA-TOBACCO FORMER USER [place] [facility] Jul 03, 2018 10:51 AM VA-TOBACCO QUIT 5 TO < 15 YRS [place] [facility] Sep 01, 2017 10:25 AM QUIT TOBACCO USE > 7 YEARS AGO [place] [facility] Aug 29, 2016 09:22 AM QUIT TOBACCO USE > 7 YEARS AGO [facility] August 15, 2015 02:32 PM QUIT TOBACCO USE > 7 YEARS AGO [facility] Advance Directives: All historical and [...] Dec 17, 2018 ADVANCE DIRECTIVE LIZ HERNANDEZ [facility] May 30, 2017 ADVANCE DIRECTIVE VICTOR MANUEL PAINTING [place] [facility] Dec 25, 2005 ADVANCE DIRECTIVE IRENA OSEI [facility] Radiology Reports: +/- 30 days [...] the Encounter. The data comes from all [place] treatment facilities. Date/Time Radiology Report Provider Source May 26, 2024 03:05 PM FLUOROSCOPIC ARIC NCE OF NEEDLE/SPINE: CARIE MAE [id number] M Exm Date: MAY 26, 2024@15:05 Req Phys: LISA LOPEZ THI Pat Loc: [facility] MED REHAB MIMA GUDINO MD (Req' Img Loc: [facility]/BUILDING 1 Service: [place] [address] (Case [id number] COMPLETE) FLUOROSCOPIC GUIDANCE OF NEEDLE/S(RAD Detailed) CPT:49961 Reason for Study: transforaminal epidural steroid injection Clinical History: Report Status: Verified Date Reported: MAY 26, 2024 Date Verified: MAY 26, 2024 [employer] E-Sig:/ES/JOSE BEJARANO JR Report: Study: Pain injection [...] Primary Interpreting Staff: JOSE BEJARANO JR, Radiologist ([employer]) /EAJOSE CAPONE JR [facility] Encounter Notes: All associated encounter notes This section contains the clinical notes associated to the Encounter. Date/Time Encounter Note(s) Provider Source Apr 30, 2024 12:44 PM ADDENDUM: LOCAL TITLE: Addendum STANDARD TITLE: ADDENDUM DATE OF NOTE: APR 30, 2024@12:44:35 ENTRY DATE: APR 30, 2024@12:44:36 AUTHOR: GISELL OTRA COSIGNER: URGENCY: STATUS: COMPLETED Further office notes and rationale received from [facility]. started on Abiraterone/Prednisone 12/2019 until it was discontinued 04/22/2022 due to sides effects of muscle weakness, fatigue and joint pain. He has been on surveillance until 04/19/2024. 04/12/2024 PSA was noted to be 2.27 He has metastatic disease (provided CT scan) This request is approved -Perry trialed and failed formulary preferred alternatives /juliann/ JOHN STANLEYD. [facility] Clinical Pharmacist Signed: 04/30/2024 12:48 Receipt Acknowledged By: 04/30/2024 15:21 /juliann/ DILAN PIERRE Heel Builder Machine ====== --- Original Document --- 04/27/24 CONSULT REPORT/PRIOR AUTH FACILITY PADR: The medical record has been reviewed with regard to this restricted drug request. This prior authorization drug request originated with a [facility] provider. Medication requested: DAROLUTAMIDE 300MG TAB Medication indication: Prostate Cancer Medical history relevant to this request: 78 y/o male followed by Oncology. Per most recent note provided (12/11/2023) has prostate cancer and is feeling well, no pain, and good appetite. PSA: 0.49 (12/08/2023) Allergies: Bicalutamide (vomiting) Per office note, no history of other antiandrogens trialed. Unknown if prostate cancer is metastatic or castration sensitive/resistant. Per [place] records, potential of abiraterone trialed in 7701-0037? Compelling evidence is currently lacking for the use of this antiandrogen. Preferred antiandrogen is abiraterone/prednisone combination. The request does not meet criteria - Compelling evidence for the requested indication is lacking Time Spent: 15 minutes /juliann/ GISELL ORTA PHARMD. [facility] Clinical Pharmacist Signed: 04/27/2024 08:31 Receipt Acknowledged By: 04/29/2024 14:28 /camilo PIERRE Heel Builder Machine GISELL [place] [facility] [facility] Apr 27, 2024 08:15 AM [...] this request: 78 y/o male followed by Oncology. Per most recent note provided (12/11/2023) has prostate cancer and is feeling well, no pain, and good appetite. PSA: 0.49 (12/08/2023) Allergies: Bicalutamide (vomiting) Per office note, no history of other antiandrogens trialed. Unknown if prostate cancer is metastatic or castration sensitive/resistant. Per [place] records, potential of abiraterone trialed in 3061-0797? Compelling evidence is currently lacking for the use of this antiandrogen. Preferred antiandrogen is abiraterone/prednisone combination. The request does not meet criteria - Compelling evidence for the requested indication is lacking Time Spent: 15 minutes /juliann/ GISELL ORTA PHARMD. [facility] Clinical Pharmacist Signed: 04/27/2024 08:31 Receipt Acknowledged By: 04/29/2024 14:28 /juliann/ DILAN PIERRE Heel Builder Machine 04/30/2024 ADDENDUM STATUS: COMPLETED Further office notes and rationale received from [facility]. Perry started on Abiraterone/Prednisone 12/2019 until it was discontinued 04/22/2022 due to sides effects of muscle weakness, fatigue and joint pain. He has been on surveillance until 04/19/2024. 04/12/2024 PSA was noted to be 2.27 He has metastatic disease (provided CT scan) This request is approved - trialed and failed formulary preferred alternatives /juliann/ GISELL ORTA PHARMD. [facility] Clinical Pharmacist Signed: 04/30/2024 12:48 Receipt Acknowledged By: * AWAITING SIGNATURE * DILAN PIERRE CHRISTY A [place] [facility]
--- OUTSIDE RECORDS SUMMARY | 2024-07-23 11:39 | XMS_ITS | Encounter Summary ---
Author Name [facility] [place] [facility] [place] Address [address] [place] [address] Care Team Providers Care Medical Imaging Director Name Role Phone DILAN LOPEZ Primary Care [...] O MEDEX BRONZ E Oct 15, 2008 [id number] CARIE MAE PATIENT ANTHEM BCBS OF [place] (BLUECARD) MEDICARE SUPPLEMEN HUMZA MEDEX BRONZ E Feb 14, 2022 [id number] CARIE MA[place] PAT[place]PP[place] HUMZA MEDEX BRONZ E Feb 14, 2022 [id number] [phone] [place] MEDEX BRONZ E Oct 15, 2008 [id number] CARIE MA[place] SU[place]UM[place] MEDEX HEARI NG AND Mar 17, 2019 [id number] CARIE MAE PATIENT MEDICARE (WNR) MEDICARE (M) PART A Oct 15, 2008 PART A [id number] CARIE MAE PATIENT MEDICARE (WNR) MEDICARE (M) PART B Oct 15, 2008 PART B [id number] CARIE MAE PATIENT MEDICARE (WNR) MEDICARE (M) PART A Oct 15, 2008 PART A [id number] [phone] CARIE MAE PATIENT MEDICARE (WNR) MEDICARE (M) PART B Oct 15, 2008 PART B [id number] [phone] CARIE MAE PATIENT MEDICARE (WNR) MEDICARE (M) PART A Oct 15, 2008 PART A [id number] CARIE MAE PATIENT MEDICARE (WNR) MEDICARE (M) PART B Oct 15, 2008 PART B [id number] CARIE MAE PATIENT MEDICARE (WNR) MEDICARE (M) PART A Oct 15, 2008 PART A [id number] CARIE MAE PATIENT MEDICARE (WNR) MEDICARE (M) PART B Oct 15, 2008 PART B [id number] [phone] CARIE MAE PATIENT Selected Encounter This section includes the information on record at [place] for the Encounter. Date/Time Encounter Type Encounter Description Reason Provider Source Apr 30, 2024 12:36 PM EXERCISE CLASS HEALTH/WELLBEING [facility] ICD-10-CM Z72.3 Lack of physical exercise NINA FERNANDEZ E Encounter Template Text not used by [place] Assessments - Encounter Diagnoses This section includes the primary and secondary diagnoses documented for the Encounter. Date/Time Primary/Secondary Diagnosis Diagnosis Name Provider Source Apr 30, 2024 12:49 PM PRIMARY Lack of physical exercise NINA FERNANDEZ [place] [facility] Plan of Treatment: Future Appointments (+ 6 months) and Future Tests (+/- 45 days) The Plan of Treatment section includes future care activities for the patient from all [place] treatmentfacilities. This section includes future appointments and future orders which are active, pending or scheduled. Future Appointments This section includes appointments that were scheduled to occur 6 months from the date of the Encounter, up to a maximum of 20 appointments. The data comes from all [facility] facilities. Appointment Date/Time Appointment Type Appointme nt Facility Name May 14, 2024 01:30 PM AM[place]ULATORY [place] [facility] [place] [facility] May 18, 2024 08:00 AM [place] [facility] [place] [facility] May 26, 2024 02:30 PM AMBULATORY - [place] MEDICIN E [place] [facility] [place] [facility] Jun 03, 2024 10:00 AM AM[place]ORY [place] [facility] [place] [facility] Jun 17, 2024 10:30 AM AM[place]UL[place]ORY [place] [facility] [place] [facility] Jul 14, 2024 02:00 PM AMBULATORY - REH[place] MEDICIN E [place] [facility] [place] [facility] July 23, 2024 09:00 AM AM[place]ORY [place] [facility] [place] [facility] July 26, 2024 10:00 AM AMBULATORY - [place] MEDICIN E [place] [facility] [place] [facility] Sep 28, 2024 08:30 AM AM[place]ORY [place] [facility] [place] [facility] Active, Pending, and Scheduled Orders [...] The data comes from all [facility]. Test Date/Time Test Type Test Details Facility Name Apr 21, 2024 01:04 PM Consult Order COMMUNITY CARE-UROLOGY Cons Tap Puller's Choice [place] [facility] [place] [facility] Lab Results: +/- 30 days of the encounter This section includes the Chemistry and Hematology Lab Results on record with [place] for the patient. Radiology Reports and Pathology Reports are provided separately, in subsequent sections. Lab Results This section contains the Chemistry/Hematology Results that were resulted 30 days before or 30 daysafter the date of the Encounter. Date/Time Source Result Type Result - Unit Interpretation Reference Range Specimen Type Comment May 04, 2024 07:49 AM [facility] PSA SERUM Specimen Type: SERUM No comment entered. Ordering Provider: YORDY LOPEZ Report Released Date/Time: Nov 11, 2023 11:31 AM Reporting Lab: [facility] [address] [facility] [address] Performing [facility]: [facility] [address] PSA 4.75 ng/mL H 0.00-4.00 May 04, 2024 07:49 AM [facility] LIPID PANEL FASTING SERUM Specimen Type: SERU M No comment entered. Ordering Provider: DILAN LOPEZ Report Released Date/Time: Nov 11, 2023 11:31 AM Reporting Lab: [address] [address] Performing Lab: [address] [address] CHOLESTEROL 192 mg/dL TRIGLYCERIDE 98 mg/dL 0-150 LDL calculated 130 mg/dL H 0-129 CHOL/HDL 4.6 HDL CHOLESTEROL 42 mg/dL 40-60 May 04, 2024 07:49 AM [facility] LIVER FUNCTION SERUM Specimen Type: SERUM No comment entered. Ordering Provider: DILAN LOPEZ Report Released Date/Time: Nov 11, 2023 11:31 AM Reporting Lab: [address] [address] Performing Lab: [address] [address] PROTEIN,TOTAL 6.9 g/dL 6.0-8.3 ALBUMIN 3.8 g/dL 3.5-5.0 ALKALINE PHOSPHATASE 44 U/L 40-150 AST 16 U/L 5-34 ALT 16 U/L BILIRUBIN, TOTAL 0.3 mg/dL 0.2-1.2 May 04, 2024 07:49 AM [facility] BASIC METABOLIC PANEL (fasting) SERUM Specime n Type: SERUM No comment entered. Ordering Provider: DILAN LOPEZ Report Released Date/Time: Nov 11, 2023 11:31 AM Reporting Lab: [place] [facility] [place] [facility] [address] [facility] [address] Performing Lab: [place] [facility] [place] [facility] [address] [facility] [address] UREA NITROGEN 18 mg/dL 7-25 GLUCOSE 100 [...] and tobacco- related health factors from the [place] facility where the Encounter took place. Current Smoking Status This section includes the most current smoking, or tobacco-related health factor, from the [place] facility where the Encounter took place. Date/Time Current Smoking Status Comment Leona weiss Nov 11, 2023 11:00 AM VA-TOBACCO NEVER [facility]ED [facility] Tobacco Use History This section includes a history of the smoking, or tobacco-related health factors, that were collected on or before the date of the Encounter. The data comes from the [place] facility where the Encounter took place. Date/Time Smoking Status/Tobacco Use Comment F acility Sep 27, 2022 10:30 AM VA-TOBACCO FORMER USER [place] [facility] [place] [facility] Sep 27, 2022 10:30 AM VA-TOBACCO QUIT 15 YRS OR MORE [facility] [place] [facility] Aug 30, 2021 09:20 AM VA-TOBACCO FORMER USER [place] [facility] [place] [facility] Aug 30, 2021 09:20 AM VA-TOBACCO QUIT 15 YRS OR MORE [facility] [place] [facility] August 07, 2020 09:00 AM VA-TOBACCO FORMER USER [facility] [place] [facility] August 07, 2020 09:00 AM VA-TOBACCO QUIT 15 YRS OR MORE [place] [facility] [place] [facility] Jul 12, 2019 10:05 AM VA-TOBACCO FORMER USER [place] [facility] [place] [facility] Jul 12, 2019 10:05 AM VA-TOBACCO QUIT 15 YRS OR MORE [facility] Jul 03, 2018 10:51 AM VA-TOBACCO FORMER USER [place] [facility] [place] [facility] Jul 03, 2018 10:51 AM VA-TOBACCO QUIT 5 TO < 15 YRS [facility] Sep 01, 2017 10:25 AM QUIT TOBACCO USE > 7 YEARS AGO [place] [facility] [place] [facility] Aug 29, 2016 09:22 AM QUIT TOBACCO USE > 7 YEARS AGO [facility] August 15, 2015 02:32 PM QUIT TOBACCO USE > 7 YEARS AGO [facility] Advance Directives: All historical and current Section Date Range: From patient's date of to the date document was created. This section includes ALL of a patient's completed or amended VA Advance and Rescinded Directives. The entries below indicate that a directive exists for the patient, but an actual copy is not included with this document. The data comes from all [place] facilities. Date Advance Directives Provider Source Dec 17, 2018 ADVANCE DIRECTIVE LIZ HERNANDEZ [facility] May 30, 2017 ADVANCE DIRECTIVE VICTOR MANUEL [place]INTING [place] [facility] Dec 25, 2005 ADVANCE DIRECTIVE [...] the Encounter. The data comes from all [place] treatment facilities. Date/Time Radiology Report Provider Source May 26, 2024 03:05 PM FLUOROSCOPIC ARIC NCE OF NEEDLE/SPINE: CARIE MAE [id number] -1945 M Exm Date: MAY 26, 2024@15:05 Req Phys: LISA LOPEZ THI Pat Loc: [facility] MED REHAB MIMA GUDINO MD (Req' Img Loc: [facility]/BUILDING 1 Service: Unknown [facility] CATHERINE ROJO [id number] (Case [id number] COMPLETE) FLUOROSCOPIC GUIDANCE OF NEEDLE/S(RAD Detailed) CPT:05846 Reason for Study: transforaminal epidural steroid injection Clinical History: Report Status: Verified Date Reported: MAY 26, 2024 Date Verified: MAY 26, 2024 Lithostripper E-Sig:/ES/JOSE BEJARANO JR Report: Study: Pain injection [...] Primary Interpreting Staff: JOSE BEJARANO JR, Radiologist (Lithostripper) /EAD JOSE BEJARANO JR [facility] Encounter Notes: All associated encounter notes This section contains the clinical notes associated to the Encounter. Date/Time Encounter Note(s) Provider Source Apr 30, 2024 12:42 PM PHYSICAL MEDICINE REHAB NOTE: LOCAL TITLE: GEROFIT-SUPERVISED EXERCISE NOTE STANDARD TITLE: PHYSICAL MEDICINE REHAB NOTE DATE OF NOTE: APR 30, 2024@12:42 ENTRY DATE: APR 30, 2024@12:42:54 AUTHOR: NINA FERNANDEZ EXP COSIGNER: URGENCY: STATUS: COMPLETED Ledbetter participated in the [facility] exercise program today. Activities were focused on progression of their individual exercise prescription (cardiorespiratory fitness training, strength training, etc.) and group based exercise sessions to include, but not limited to: flexibility training, balance training, functional circuit training, Russ Chi for arthritis, and other functional strength and neuromotor exercises. Exercise participation was supervised by [facility] staff and any questions/concerns were addressed with the patient. Modifications were made to programming as appropriate to suit Veterans individual needs, preferences, and whole health concerns. /juliann/ Nina Fernandez PT,DPT PHYSICAL THERAPIST Signed: 04/30/2024 12:50 CHALLET,NINA Carlos BEARDEN
--- OUTSIDE RECORDS SUMMARY | 2024-07-23 11:39 | XMS_ITS | Encounter Summary ---
Author Name [facility] [place] [facility] [place] [facility] [place] Address [address] [place] [address] Care Team Providers Care Gi Technician Name Role Phone DILAN LOPEZ Primary [...] O MEDEX BRONZ E Oct 15, 2008 [id number] [phone] CARIE MAE PATIENT ANTHEM BCBS OF [place] (BLUECARD) MEDICARE SUPPLEMEN HUMZA MEDEX BRONZ E Feb 14, 2022 [id number] [phone] CARIE MAE PAT[place]PP[place]UM[place] MEDEX BRONZ E Feb 14, 2022 [id number] CARIE MAE [place]PP[place]UM[place] MEDEX BRONZ E Oct 15, 2008 [id number] CARIE MAE PATIENT [place] OF [place] SUPPLEMEN HUMZA MEDEX HEARI NG AND Mar 17, 2019 [id number] CARIE MAE PATIENT MEDICARE (WNR) MEDICARE (M) PART A Oct 15, 2008 PART A [id number] [phone] CARIE MAE PATIENT MEDICARE (WNR) MEDICARE (M) PART B Oct 15, 2008 PART B [id number] CARIE MAE PATIENT MEDICARE (WNR) MEDICARE (M) PART A Oct 15, 2008 PART A [id number] CARIE MAE PATIENT MEDICARE (WNR) MEDICARE (M) PART B Oct 15, 2008 PART B [id number] [phone] CARIE MAE PATIENT MEDICARE (WNR) MEDICARE (M) PART A Oct 15, 2008 PART A [id number] CARIE MAE PATIENT MEDICARE (WNR) MEDICARE (M) PART B Oct 15, 2008 PART B [id number] CARIE MAE PATIENT MEDICARE (WNR) MEDICARE (M) PART A Oct 15, 2008 PART A [id number] [phone] ACRIE MAE PATIENT MEDICARE (WNR) MEDICARE (M) PART B Oct 15, 2008 PART B [id number] [phone] CARIE MAE PATIENT Selected Encounter This [...] PRIMARY Lack of physical exercise [place] [facility] [facility] Plan of [...] AM[place]UL[place]ORY [place] [facility] [place] [facility] Jul 14, 2024 02:00 PM AMBULATORY - [place] MEDICIN E [place] [facility] [place] [facility] July 23, 2024 09:00 AM [place] [facility] [place] [facility] July 26, 2024 10:00 AM AMBULATORY - REHAB MEDICIN E [place] [facility] [place] [facility] Sep 28, 2024 08:30 AM [place] [facility] [place] [facility] Nov 17, 2024 01:00 PM AMBUL[place]ORY [place] [facility] [facility] Social History: Smoking Status (Most current) [...] 11, 2023 11:00 AM [facility]ACCO [facility] Tobacco Use History This section includes a history of the smoking, or tobacco-related health factors, that were collected on or before the date of the Encounter. The data comes from the [place] facility where the Encounter took place. Date/Time Smoking Status/Tobacco Use Comment F acility Sep 27, 2022 10:30 AM VA-TOBACCO FORMER USER [place] [facility] [facility] Sep 27, 2022 10:30 AM VA-TOBACCO QUIT 15 YRS OR MORE [place] [facility] [place] [facility] Aug 30, 2021 09:20 AM VA-TOBACCO FORMER USER [place] [facility] [facility] Aug 30, 2021 09:20 AM VA-TOBACCO QUIT 15 YRS OR MORE [place] [facility] August 07, 2020 09:00 AM VA-TOBACCO FORMER USER [place] [facility] [facility] August 07, 2020 09:00 AM VA-TOBACCO QUIT 15 YRS OR MORE [place] [facility] [place] [facility] Jul 12, 2019 10:05 AM VA-TOBACCO FORMER USER [place] [facility] [place] [facility] Jul 12, 2019 10:05 AM VA-TOBACCO QUIT 15 YRS OR MORE [place] [facility] [place] [facility] Jul 03, 2018 10:51 AM VA-TOBACCO FORMER USER [place] [facility] [facility] Jul 03, 2018 10:51 AM VA-TOBACCO QUIT 5 TO < 15 YRS [place] [facility] [facility] [facility] Sep 01, 2017 10:25 AM QUIT TOBACCO USE > 7 YEARS AGO [place] [facility] [place] [facility] Aug 29, 2016 09:22 AM QUIT TOBACCO USE > 7 YEARS AGO [place] [facility] [facility] August 15, 2015 02:32 PM QUIT TOBACCO USE > 7 YEARS AGO [place] [facility] Advance Directives: All historical and current [...] ADVANCE DIRECTIVE LIZ HERNANDEZ [place] [facility] [facility] May 30, 2017 ADVANCE DIRECTIVE VICTOR MANUEL PAINTING [place] [facility] [facility] [facility] Dec 25, 2005 ADVANCE DIRECTIVE IRENA OSEI [id number] Radiology Reports: +/- 30 days of [...] FLUOROSCOPIC ARIC NCE OF NEEDLE/SPINE: CARIE MAE [id number] -1945 M Ex Date: MAY 26, 2024@15:05 Req Phys: LISA LOPEZ Pat Loc: [facility] MED REHAB MIMA GUDINO MD (Req' Img Loc: [facility]/BUILDING 1 Service: [place] [place] [address] (Case [id number] COMPLETE) FLUOROSCOPIC GUIDANCE OF NEEDLE/S(RAD Detailed) CPT:35330 Reason for Study: transforaminal epidural steroid injection Clinical History: Report Status: Verified Date Reported: MAY 26, 2024 Date Verified: MAY 26, 2024 Family Engagement Specialist E-Sig:/ES/JOSE BEJARANO JR Report: Study: Pain injection [...] Primary Interpreting Staff: JOSE BEJARANO JR, Radiologist (Family Engagement Specialist) /JOSE [facility] Encounter Notes: All associated encounter notes This section contains the clinical notes associated to the Encounter. Date/Time Encounter Note(s) Provider Source Jun 14, 2024 10:04 AM PHYSICAL MEDICINE REHAB NOTE: LOCAL TITLE: GEROFIT-SUPERVISED EXERCISE NOTE STANDARD TITLE: PHYSICAL MEDICINE REHAB NOTE DATE OF NOTE: JUN 14, 2024@10:04 ENTRY DATE: JUN 14, 2024@10:04:41 AUTHOR: SHANNON PAR[place] EXP COSIGNER: URGENCY: STATUS: COMPLETED participated in the [facility] exercise program today. Activities were focused on progression of their individual exercise prescription (cardiorespiratory fitness training, strength training, etc.) and group based exercise sessions to include, but not limited to: flexibility training, balance training, functional circuit training, Russ Chi for arthritis, and other functional strength and neuromotor exercises. Exercise participation was supervised by [facility] staff and any questions/concerns were addressed with the patient. Modifications were made to programming as appropriate to suit Veterans individual needs, preferences, and whole health concerns. /juliann/ NYLA CARABALLO LICENSE SEMIAUTOMATIC TAPER OPERATOR Signed: 06/14/2024 10:21 [place] [facility]
--- OUTSIDE RECORDS SUMMARY | 2024-07-23 11:39 | XMS_ITS | Encounter Summary ---
Author Name [facility] [place] [facility] [place] Address [address] [place] [address] Care Team Providers Care Manager Gift Name Role Phone DILAN LOPEZ Primary Care [...] O MEDEX BRONZ E Oct 15, 2008 [id number] [phone] CARIE MAE PATIENT ANTHEM BCBS OF [place] (BLUECARD) MEDICARE SUPPLEMEN HUMZA MEDEX BRONZ E Feb 14, 2022 [id number] CARIE MAE PATIENT [place] MED[place] SUPPLEMEN HUMZA MEDEX BRONZ E Feb 14, 2022 [id number] CARIE MA[place] SU[place] HUMZA MEDEX BRONZ E Oct 15, 2008 [id number] CARIE MAE PATIENT [place] SUPPLEMEN HUMZA MEDEX HEARI NG AND Mar 17, 2019 [id number] CARIE MAE PATIENT MEDICARE (WNR) MEDICARE (M) PART A Oct 15, 2008 PART A [id number] CARIE MAE PATIENT MEDICARE (WNR) MEDICARE (M) PART B Oct 15, 2008 PART B [id number] CARIE MAE PATIENT MEDICARE (WNR) MEDICARE (M) PART A Oct 15, 2008 PART A [id number] CARIE MAE PATIENT MEDICARE (WNR) MEDICARE (M) PART B Oct 15, 2008 PART B [id number] CARIE MAE PATIENT MEDICARE (WNR) MEDICARE (M) PART A Oct 15, 2008 PART A [id number] [phone] CARIE MAE PATIENT MEDICARE (WNR) MEDICARE (M) PART B Oct 15, 2008 PART B [id number] CARIE MAE PATIENT MEDICARE (WNR) MEDICARE (M) PART A Oct 15, 2008 PART A [id number] [phone] CARIE MAE PATIENT MEDICARE (WNR) MEDICARE (M) PART B Oct 15, 2008 PART B [id number] [phone] CARIE MAE PATIENT Selected Encounter This section includes the information on record at [place] for the Encounter. Date/Time Encounter Type Encounter Description Reason Provider Source July 19, 2024 07:30 AM EXERCISE CLASS HEALTH/WELLBEING [facility] ICD-10-CM Z72.3 Lack of physical exercise RODRIGO FERNANDEZ IHE Encounter Template Text not used by [place] Assessments - Encounter Diagnoses This section includes the primary and secondary diagnoses documented for the Encounter. Date/Time Primary/Secondary Diagnosis Diagnosis Name Provider Source July 19, 2024 10:51 AM PRIMARY Lack of physical exercise HAZEL PARIS [place] [facility] [place] [facility] Plan of Treatment: [...] 20 appointments. The data comes from all [place] treatment facilities. Appointment Date/Time Appointment Type Appointme nt Facility Name July 23, 2024 09:00 AM AMBULATORY [place]ICINE [place] [facility] [place] [facility] July 26, 2024 10:00 AM AMBULATORY - [facility] MEDICIN E [place] [facility] [place] [facility] Sep 28, 2024 08:30 AM AM[place]ULATORY [place] MEDICINE [place] [facility] [place] [facility] Nov 17, 2024 01:00 PM AMBULATORY - REHAB MEDICIN E [facility] [place] [facility] Dec 15, 2024 09:30 AM AM[place]ULATORY [place] MEDICINE [place] [facility] [place] [facility] Dec 15, 2024 10:00 AM AM[facility]ULATORY - MEDIC[facility] Social History: Smoking Status (Most current) and Tobacco Use (All prior to encounter date) This section includes the most current, and the historical, smoking and tobacco- related health factors from the [place] facility where the Encounter took place. Current Smoking Status This section includes the most current smoking, or tobacco-related health factor, from the [place] facility where the Encounter took place. Date/Time Current Smoking Status Comment Facil ity Nov 11, 2023 11:00 AM VA-TOBACCO NEVER USED [facility] Tobacco Use History This section includes a history of the smoking, or tobacco-related health factors, that were collected on or before the date of the Encounter. The data comes from the [place] facility where the Encounter took place. Date/Time Smoking Status/Tobacco Use Comment F acility Sep 27, 2022 10:30 AM VA-TOBACCO FORMER USER [place] [facility] [place] [facility] Sep 27, 2022 10:30 AM VA-TOBACCO QUIT 15 YRS OR MORE [place] [facility] [place] [facility] Aug 30, 2021 09:20 AM VA-TOBACCO FORMER USER [place] [facility] [place] [facility] Aug 30, 2021 09:20 AM VA-TOBACCO QUIT 15 YRS OR MORE [place] [facility] [place] [facility] August 07, 2020 09:00 AM VA-TOBACCO FORMER USER [place] [facility] [place] [facility] August 07, 2020 09:00 AM VA-TOBACCO QUIT 15 YRS OR MORE [place] [facility] [place] [facility] Jul 12, 2019 10:05 AM VA-TOBACCO FORMER USER [place] [facility] [place] [facility] Jul 12, 2019 10:05 AM VA-TOBACCO QUIT 15 YRS OR MORE [place] [facility] [place] [facility] Jul 03, 2018 10:51 AM VA-TOBACCO FORMER USER [place] [facility] [place] [facility] Jul 03, 2018 10:51 AM VA-TOBACCO QUIT 5 TO < 15 YRS [place] [facility] [place] [facility] Sep 01, 2017 10:25 AM QUIT TOBACCO USE > 7 YEARS AGO [place] [facility] [place] [facility] Aug 29, 2016 09:22 AM QUIT TOBACCO USE > 7 YEARS AGO [place] [facility] [place] [facility] August 15, 2015 02:32 PM QUIT TOBACCO USE > [facility] Advance Directives: All historical and current Section Date Range: From patient's date of to the date document was created. This section includes ALL of a patient's completed or amended [place] Advance and Rescinded Directives. The entries below indicate that a directive exists for the patient, but an actual copy is not included with this document. The data comes from all [place] facilities. Date Advance Directives Provider Source Dec 17, 2018 ADVANCE DIRECTIVE LIZ [facility]DEZ [facility] May 30, 2017 ADVANCE DIRECTIVE VICTOR MANUEL PAINTING [place] [facility] Dec 25, 2005 ADVANCE DIRECTIVE IRENA [facility] Encounter Notes: All associated encounter notes This section contains the clinical notes associated to the Encounter. Date/Time Encounter Note(s) Provider Source July 19, 2024 10:50 AM PHYSICAL MEDICINE REHAB NOTE: LOCAL TITLE: GEROFIT-SUPERVISED EXERCISE NOTE STANDARD TITLE: PHYSICAL MEDICINE REHAB NOTE DATE OF NOTE: JULY 19, 2024@10:50 ENTRY DATE: JULY 19, 2024@10:50:27 AUTHOR: SHANNON PARIS COSIGNER: URGENCY: STATUS: COMPLETED participated in the Gerofit exercise program today. Activities were focused on progression of their individual exercise prescription (cardiorespiratory fitness training, strength training, etc.) and group based exercise sessions to include, but not limited to: flexibility training, balance training, functional circuit training, Russ Chi for arthritis, and other functional strength and neuromotor exercises. Exercise participation was supervised by [facility] staff and any questions/concerns were addressed with the patient. Modifications were made to programming as appropriate to suit Veterans individual needs, preferences, and whole health concerns. /es/ NYLA CARABALLO LICENSE MOVEMENT ASSEMBLY FINAL INSPECTOR Signed: 07/19/2024 10:56 SHANNON PARIS [place] [facility]
--- OUTSIDE RECORDS SUMMARY | 2024-07-23 11:40 | XMS_ITS | Encounter Summary ---
Author Name [facility] [place] Address [address] [place] [address] Care Team Providers Care Handle Bar Assembler Name Role Phone DILAN GARCIA Primary Care [...] O MEDEX BRONZ E Oct 15, 2008 [id number] [phone] CARIE MAE PATIENT ANTHEM BCBS OF [place] (BLUECARD) MEDICARE SUPPLEMEN HUMZA MEDEX BRONZ E Feb 14, 2022 [id number] CAR[place] MAE PAT[place]PPLEMEN HUM[place] MEDEX BRONZ E Feb 14, 2022 [id number] CARIE MAE PAT[place] SUPPLEMEN HUMZA MEDEX BRONZ E Oct 15, 2008 [id number] CARIE MAE PATIENT BCBS OF [place] MEDICARE SUPPLEMEN HUMZA MEDEX HEARI NG AND Mar 17, 2019 [id number] CARIE MAE PATIENT MEDICARE (WNR) MEDICARE (M) PART A Oct 15, 2008 PART A [id number] [phone] CARIE MAE PATIENT MEDICARE (WNR) MEDICARE (M) PART B Oct 15, 2008 PART B [id number] [phone] CARIE MAE PATIENT MEDICARE (WNR) MEDICARE (M) PART A Oct 15, 2008 PART A [id number] CARIE MAE PATIENT MEDICARE (WNR) MEDICARE (M) PART B Oct 15, 2008 PART B [id number] [phone] CARIE MAE PATIENT MEDICARE (WNR) MEDICARE (M) PART A Oct 15, 2008 PART A [id number] [phone] CARIE MAE PATIENT MEDICARE (WNR) MEDICARE (M) PART B Oct 15, 2008 PART B [id number] CARIE MAE PATIENT MEDICARE (WNR) MEDICARE (M) PART A Oct 15, 2008 PART A [id number] CARIE MAE PATIENT MEDICARE (WNR) MEDICARE (M) PART B Oct 15, 2008 PART B [id number] CARIE MAE PATIENT Selected Encounter This section includes the information on record at [place] for the Encounter. Date/Time Encounter Type Encounter Description Reason Provider Source Jun 03, 2024 10:00 AM OFF/OP EST JULY X REQ PHY/QHP PRIMARY CARE/MEDICINE ICD-10-CM I11.9 Hypertensive heart disease without heart failure KELSY ZHOU IHE Encounter Template Text not used by [place] Assessments - Encounter Diagnoses This section includes the primary and secondary diagnoses documented for the Encounter. Date/Time Primary/Secondary Diagnosis Diagnosis Name Provider Source Jun 03, 2024 10:04 AM PRIMARY Hypertensive heart disease without heart failure KELSY ZHOU [place] [facility] [place] [facility] Plan of Treatment: Future Appointments (+ 6 months) and Future Tests (+/- 45 days) The Plan of Treatment section includes future care activities for the patient [facility] [place] [facility]. This section includes future appointments and future orders which are active, pending or scheduled. Future Appointments This section includes appointments that were scheduled to occur 6 months from the date of the Encounter, up to a maximum of 20 appointments. The data comes from all [facility] facilities. Appointment Date/Time Appointment Type Appointme nt Facility Name Jun 17, 2024 10:30 AM AMBULATORY - MEDICINE [place] [facility] [place] [facility] Jul 14, 2024 02:00 PM AMBULATORY - REHAB MEDICIN E [place] [facility] [place] [facility] July 23, 2024 09:00 AM AMBULATORY - MEDICINE [place] [facility] [facility] July 26, 2024 10:00 AM AMBULATORY - REHAB MEDICIN E [place] [facility] [place] [facility] Sep 28, 2024 08:30 AM AMBULATORY - MEDICINE [place] [facility] [place] [facility] Nov 17, 2024 01:00 PM [facility] [place] [facility] Active, Pending, and Scheduled Orders This section includes a listing of several types of active, pending, and scheduled orders, including clinic medications orders, diagnostic test orders, procedure orders and consult orders; where the start date of the order is 45 days before the date of the Encounter or 45 days after the date of theEncounter. The data comes from all [facility]. Test Date/Time Test Type Test Details Facility Name Apr 21, 2024 01:04 PM Consult Order COMMUNITY CARE-UROLOGY Cons Second Butler's Choice [facility] Vital Signs: All taken on the encounter date This section contains inpatient and outpatient Vital Signs collected on the date of the Encounter. Date/Time Temperature Pulse Blood Pressure Respiratory Rate SP02 Pain Height Weight Body Mass Index Source Jun 03, 2024 10:05 AM 110/70 [place] [facility] [place] [facility] Jun 03, 2024 10:05 AM 67 131/65 [facility] [place] [facility] Social History: Smoking Status (Most current) and Tobacco Use (All prior to encounter date) This section includes the most current, and the historical, smoking and tobacco- related health factors from the [place] facility where the Encounter took place. Current Smoking Status This section includes the most current smoking, or tobacco-related health factor, from the [place] facility where the Encounter took place. Date/Time Current Smoking Status Comment Leona ity Nov 11, 2023 11:00 AM VA-TOBACCO NEVER USED [place] [facility] [place] [facility] Tobacco Use History This section includes a history of the smoking, or tobacco-related health factors, that were collected on or before the date of the Encounter. The data comes from the [place] facility where the Encounter took place. Date/Time Smoking Status/Tobacco Use Comment F acility Sep 27, 2022 10:30 AM VA-TOBACCO FORMER USER [place] [facility] [place] [facility] Sep 27, 2022 10:30 AM VA-TOBACCO QUIT 15 YRS OR MORE [place] [facility] [place] [facility] Aug 30, 2021 09:20 AM VA-TOBACCO FORMER USER [place] [facility] [place] [facility] Aug 30, 2021 09:20 AM VA-TOBACCO QUIT 15 YRS OR MORE [place] [facility] [facility] August 07, 2020 09:00 AM VA-TOBACCO FORMER USER [place] [facility] [place] [facility] August 07, 2020 09:00 AM VA-TOBACCO QUIT 15 YRS OR MORE [place] [facility] [facility] Jul 12, 2019 10:05 AM VA-TOBACCO FORMER USER [place] [facility] [place] [facility] Jul 12, 2019 10:05 AM VA-TOBACCO QUIT 15 YRS OR MORE [place] [facility] [facility] Jul 03, 2018 10:51 AM VA-TOBACCO FORMER USER [place] [facility] [place] [facility] Jul 03, 2018 10:51 AM VA-TOBACCO QUIT 5 TO < 15 YRS [place] [facility] [place] [facility] Sep 01, 2017 10:25 AM QUIT TOBACCO USE > 7 YEARS AGO [place] [facility] [place] [facility] Aug 29, 2016 09:22 AM QUIT TOBACCO USE > 7 YEARS AGO [place] [facility] [place] [facility] August 15, 2015 02:32 PM QUIT TOBACCO USE > 7 YEARS AGO [place] [facility] [place] [facility] Advance Directives: All historical and current Section Date Range: From patient's date of to the date document was created. This section includes ALL of a patient's completed or amended [place] Advance and Rescinded Directives. The entries below indicate that a directive exists for the patient, but an actual copy is not included with this document. The data comes from all [place] facilities. Date Advance Directives Provider Source Dec 17, 2018 ADVANCE DIRECTIVE LIZ HERNANDEZ [facility] May 30, 2017 ADVANCE DIRECTIVE VICTOR MANUEL PAINTING [facility] Dec 25, 2005 ADVANCE DIRECTIVE IRENA [...] the Encounter. The data comes from all [place] treatment facilities. Date/Time Radiology Report Provider Source May 26, 2024 03:05 PM FLUOROSCOPIC ARIC NCE OF NEEDLE/SPINE: CARIE MAE [id number] -1945 M [facility] Date: MAY 26, 2024@15:05 Req Phys: LISA LOPEZ THI Pat Loc: [facility] MED REHAB SPN TERESE ECHEVARRIA (Req' Img Loc: [facility]/BUILDING 1 Service: [place] [address] (Case [id number] COMPLETE) FLUOROSCOPIC GUIDANCE OF NEEDLE/S(RAD Detailed) CPT:53994 Reason for Study: transforaminal epidural steroid injection Clinical History: Report Status: Verified Date Reported: MAY 26, 2024 Date Verified: MAY 26, 2024 City Recorder E-Sig:/ES/JOSE BEJARANO JR Report: Study: Pain injection [...] Primary Interpreting Staff: JOSE BEJARANO JR, Radiologist (City Recorder) /EAD JOSE BEJARANO JR [facility] Encounter Notes: All associated encounter notes [...] Blood pressure check: F: Nursing Clinic D: here for blood pressure check per PCP [...] 12:41 /juliann/ Dilan Garcia PA-C STAFF PHYSICIAN OVER[employer] CRANE TECHNICIAN YANY ZHOU [facility]
--- OUTSIDE RECORDS SUMMARY | 2024-07-23 11:40 | XMS_ITS | Encounter Summary ---
Author Name [facility] Organization [facility] Address [address] [place] [address] Care Team Providers Care Machine Packer Name Role Phone DILAN GARCIA Primary Care [...] O MEDEX BRONZ E Oct 15, 2008 [id number] CARIE MAE PATIENT ANTHEM BCBS OF [place] (BLUECARD) MEDICARE SUPPLEMEN HUMZA MEDEX BRONZ E Feb 14, 2022 [id number] CARIE [place]UM[place] MEDEX BRONZ E Feb 14, 2022 [id number] CAR[place]UM[place] MEDEX BRONZ E Oct 15, 2008 [id number] CARIE MAE [place] SUPPLEMEN HUM[place] MEDEX HEARI NG AND Mar 17, 2019 [id number] [phone] CARIE MAE PATIENT MEDICARE (WNR) MEDICARE (M) PART A Oct 15, 2008 PART A [id number] CARIE MAE PATIENT MEDICARE (WNR) MEDICARE () PART B Oct 15, 2008 PART B [id number] CARIE MAE PATIENT MEDICARE (WNR) MEDICARE (M) PART B Oct 15, 2008 PART B [id number] CARIE MAE PATIENT MEDICARE (WNR) MEDICARE (M) PART A Oct 15, 2008 PART A [id number] CARIE MAE PATIENT MEDICARE (WNR) MEDICARE () PART A Oct 15, 2008 PART A [id number] [phone] CARIE MAE PATIENT MEDICARE (WNR) MEDICARE () PART B Oct 15, 2008 PART B [id number] CARIE MAE PATIENT MEDICARE (WNR) MEDICARE () PART A Oct 15, 2008 PART A [id number] CARIE MAE PATIENT MEDICARE (WNR) MEDICARE (M) PART B Oct 15, 2008 PART B [id number] CARIE MAE PATIENT Selected Encounter This section includes the information on record at ID for the Encounter. Date/Time Encounter Type Encounter Description Reason Provider Source May 18, 2024 08:00 AM OFFICE O/P EST MOD 30 MIN PRIMARY CARE/MEDICINE ICD-10-CM G47.30 Sleep apnea, unspecified VANWAGNER,WILL MC F IHE Encounter Template Text not used by ID Assessments - Encounter Diagnoses This section includes the primary and secondary diagnoses documented for the Encounter. Date/Time Primary/Secondary Diagnosis Diagnosis Name Provider Source May 18, 2024 08:43 AM PRIMARY Sleep apnea, unspecified NAVARRO GARCIA [facility] May 18, 2024 08:43 AM SECONDARY Carcinoma in situ of prostate NAVARRO GARCIA [facility] [place] May 18, 2024 08:43 AM SECONDARY Hypertensive heart disease without heart failure NAVARRO GARCIA [facility] Plan of Treatment: Future Appointments (+ 6 months) and Future Tests (+/- 45 days) The Plan of Treatment section includes future care activities for the patient from all [facility] This section includes future appointments and future orders which are active, pending or scheduled. Future Appointments This section includes appointments that were scheduled to occur 6 months from the date of the Encounter, up to a maximum of 20 appointments. The data comes from all [facility]. Appointment Date/Time Appointment Type Appointme nt Facility Name May 26, 2024 02:30 PM AMBULATORY - REHAB MEDICIN E [facility] [place] [facility] Jun 03, 2024 10:00 AM AMBULATORY - MEDICINE ID [facility] Jun 17, 2024 10:30 AM AMBULATORY - MEDICINE ID [facility] [place] Jul 14, 2024 02:00 PM AMBULATORY - REHAB MEDICIN E [facility] [place] July 23, 2024 09:00 AM AMBULATORY - MEDICINE ID [facility] [place] July 26, 2024 10:00 AM AMBULATORY - REHAB MEDICIN E [facility] [place] Sep 28, 2024 08:30 AM AMBULATORY - MEDICINE ID [facility] [place] Nov 17, 2024 01:00 PM AMBULATORY - [facility] MEDICIN E [facility] Active, Pending, and Scheduled Orders This section includes a listing of several types of active, pending, and scheduled orders, including clinic medications orders, diagnostic test orders, procedure orders and consult orders; where the start date of the order is 45 days before the date of the Encounter or 45 days after the date of theEncounter. The data comes from all [facility]. Test Date/Time Test Type Test Details Facility Name Apr 21, 2024 01:04 PM Consult Order COMMUNITY CARE-UROLOGY Cons Quality Assurance Project Manager's Choice [facility] Lab Results: +/- 30 days [...] Type Comment May 04, 2024 07:49 AM [facility] PSA SERUM Specimen Type: SERUM No comment entered. Ordering Provider: YORDY GARCIA Report Released Date/Time: Nov 11, 2023 11:31 AM Reporting Lab: [address] [address] Performing Lab: [address] [address] PSA 4.75 ng/mL H 0.00-4.00 May 04, 2024 07:49 AM [facility] BASIC METABOLIC PANEL (fasting) SERUM Specime n Type: SERUM No comment entered. Ordering Provider: DILAN GARCIA Report Released Date/Time: Nov 11, 2023 11:31 AM Reporting Lab: [address] [address] Performing Lab: [address] [address] UREA NITROGEN 18 mg/dL 7-25 GLUCOSE 100 mg/dL 65-100 SODIUM 137 mmol/L 135-145 POTASSIUM 4.8 mmol/L 3.5-5.0 CHLORIDE 104 mmol/L 100-110 CO2 25 meq/L 20-30 CREATININE, Serum 0.97 mg/dL 0.50-1.40 eGFR(CKD-EPI 2020) 78 mL/min >60 May 04, 2024 07:49 AM [facility] LIPID PANEL FASTING SERUM Specimen Type: SERU M No comment entered. Ordering Provider: DILAN GARCIA Report Released Date/Time: Nov 11, 2023 11:31 AM Reporting Lab: [address] [address] Performing Lab: [address] [address] CHOLESTEROL 192 mg/dL TRIGLYCERIDE 98 mg/dL 0-150 LDL calculated 130 mg/dL H 0-129 CHOL/HDL 4.6 HDL CHOLESTEROL 42 mg/dL 40-60 May 04, 2024 07:49 AM [facility] LIVER FUNCTION SERUM Specimen Type: SERUM No comment entered. Ordering Provider: DILAN GARCIA Report Released Date/Time: Nov 11, 2023 11:31 AM Reporting Lab: [facility] [address] [facility] [address] Performing Lab: [address] [address] PROTEIN,TOTAL 6.9 g/dL 6.0-8.3 ALBUMIN 3.8 g/dL 3.5-5.0 ALKALINE PHOSPHATASE 44 U/L 40-150 AST 16 U/L 5-34 ALT 16 U/L BILIRUBIN, TOTAL 0.3 mg/dL 0.2-1.2 Vital Signs: All taken on the encounter date This section contains inpatient and outpatient Vital Signs collected on the date of the Encounter. Date/Time Temperature Pulse Blood Pressure Respiratory Rate SP02 Pain Height Weight Body Mass Index Source May 18, 2024 07:58 AM 98.2 74 92/54 16 97 0 69.5 211 31 [facility] Social History: Smoking Status (Most [...] 11, 2023 11:00 AM VA-TOBACCO NEVER USED [facility] Tobacco Use History This section includes a history of the smoking, or tobacco-related health factors, that were collected on or before the date of the Encounter. The data comes from the ID facility where the Encounter took place. Date/Time Smoking Status/Tobacco Use Comment F acility Sep 27, 2022 10:30 AM VA-TOBACCO FORMER USER [facility] Sep 27, 2022 10:30 AM VA-TOBACCO QUIT 15 YRS OR MORE [facility] [place] Aug 30, 2021 09:20 AM VA-TOBACCO FORMER USER [facility] Aug 30, 2021 09:20 AM VA-TOBACCO QUIT 15 YRS OR MORE [facility] [place] August 07, 2020 09:00 AM VA-TOBACCO FORMER USER [facility] [place] August 07, 2020 09:00 AM VA-TOBACCO QUIT 15 YRS OR MORE [facility] [place] Jul 12, 2019 10:05 AM VA-TOBACCO FORMER USER [facility] [place] Jul 12, 2019 10:05 AM VA-TOBACCO QUIT 15 YRS OR MORE [facility] [place] Jul 03, 2018 10:51 AM VA-TOBACCO FORMER USER [facility] [place] Jul 03, 2018 10:51 AM VA-TOBACCO QUIT 5 TO < 15 YRS [facility] [place] Sep 01, 2017 10:25 AM QUIT TOBACCO USE > 7 YEARS AGO [facility] [place] Aug 29, 2016 09:22 AM QUIT TOBACCO USE > 7 YEARS AGO [facility] [place] August 15, 2015 02:32 PM QUIT TOBACCO USE > 7 YEARS AGO [facility] [place] [facility] Advance Directives: All historical and current Section [...] Dec 17, 2018 ADVANCE DIRECTIVE LIZ HERNANDEZ [facility] [place] [facility] May 30, 2017 ADVANCE DIRECTIVE VICTOR MANUEL PAINTING [facility] Dec 25, 2005 ADVANCE DIRECTIVE IRENA [facility] Radiology Reports: +/- 30 days of the [...] FLUOROSCOPIC ARIC NCE OF NEEDLE/SPINE: CARIE MAE [id number] -[id number] M Exm Date: MAY 26, 2024@15:05 Req Phys: LISA LOPEZ Pat Loc: [facility] MED REHAB SPN TERESE ECHEVARRIA (Req' Img Loc: [facility]/BUILDING 1 Service: [place] [address] (Case [id number] COMPLETE) FLUOROSCOPIC GUIDANCE OF NEEDLE/S(RAD Detailed) CPT:34497 Reason for Study: transforaminal epidural steroid injection Clinical History: Report Status: Verified Date Reported: MAY 26, 2024 Date Verified: MAY 26, 2024 Sound Cutter E-Sig:/ES/JOSE BEJARANO JR Report: Study: Pain injection [...] Primary Interpreting Staff: JOSE BEJARANO JR, Radiologist (Sound Cutter) /JOSE MOORE JR [facility] Encounter Notes: All associated encounter notes This section contains the clinical notes associated to the Encounter. Date/Time Encounter Note(s) Provider Source May 18, 2024 08:39 AM PHYSICIAN IMPERSONATOR CHARACTER NOTE: LOCAL TITLE: PA NOTE STANDARD TITLE: PHYSICIAN IMPERSONATOR CHARACTER NOTE DATE OF NOTE: MAY 18, 2024@08:39 ENTRY DATE: MAY 18, 2024@08:39:47 AUTHOR: DILAN GARCIA COSIGNER: URGENCY: STATUS: COMPLETED CC/HPI/A/P: 78 year old MALE here in follow-up for; With MRS Prostate cancer,psa increase noted. seeing [facility]rology Math[facility] in [facility] and Onc in [facility]. htn, admits to some fatigue. decrease [...] of anticoagulant 3. AF- Atrial Fibrillation (SCT [id number]) 4. Cardiac pacemaker in situ [employer] Product ICM model M301 serial [id number] May,. 5. Hyperlipidemia 6. Open Angle Glaucoma 7. Optic Neuropathy, Ischemic 8. Personal History of Colonic Polyps Neg colonsocpy 08/31/07 Dr Robertson 9. Pain in joint involving shoulder region 10. Gastroesophageal Reflux Disorder EGD 08/31/07 Dr Robertson Negative 11. Obesity 12. Osteoarthrosis, unspecified whether generalized or localized, involving unsp Left knee replacement 04, 13. Benign essential hypertension (SNOMED CT [id number]) 01/20 Stress ECHO negative 04/22 Spect EF 55% 14. Psoriasis 15. Herniated Disc L4-5 16. Prostate cancer (SNOMED CT [id number]) 02; T2anx sulaiman 4/4, psa 13.5 lupron [...] today:yes /es/ Dilan Garcia PA-C STAFF PHYSICIAN IMPERSONATOR CHARACTER Signed: 05/18/2024 08:43 DILAN GARCIA [facility] May 18, 2024 08:01 AM PREVENTIVE MEDICINE NURSING NOTE: LOCAL TITLE: CLINICAL REMINDERS/NURSING STANDARD TITLE: PREVENTIVE MEDICINE NURSING NOTE DATE OF NOTE: MAY 18, 2024@08:01 ENTRY DATE: MAY 18, 2024@08:02:05 AUTHOR: JJ MACIEL COSIGNER: URGENCY: STATUS: COMPLETED CLINICAL REMINDERS/NURSING Has [...] (historical) Patient received a prior dose of [employer] RSV vaccine. Documented: RSV, BIVALENT, PROTEIN SUBUNIT [...] Date Administered: Jan 09, 2024 Series: Booster Neon Pumper: [employer] Lot: [id number] Exp Date: Unknown Outside Location: Outside Healthcare Provider Information Source: FROM OTHER PROVIDER COVID-19 Immunization: Patient received a prior dose of the Moderna Monovalent vaccine. Documented: COVID-19 (MODERNA), MRNA, LNP-S, PF, 50 MCG/0.5 ML (AGES 12+ YEARS) Historical Date Administered: Jan 09, 2024 Series: Series 1 Neon Pumper: [employer] Outside Location: Outside Healthcare Provider Information Source: FROM OTHER PROVIDER /es/ JJ MACIEL LPN Signed: 05/18/2024 11:44 VINAY MACIEL [facility]
--- OUTSIDE RECORDS SUMMARY | 2024-07-23 11:40 | XMS_ITS | Encounter Summary ---
Author Name [facility] [place] Address [address] [place] [address] Care Team Providers Care Electrical Continuity Tester Name Role Phone DILAN GARCIA Primary Care [...] O MEDEX BRONZ E Oct 15, 2008 [id number] [phone] CARIE MAE PATIENT ANTHEM BCBS OF CT (BLUECARD) MEDICARE SUPPLEMEN HUMZA MEDEX BRONZ E Feb 14, 2022 [id number] [phone] CARIE MAE PATIENT [place]BS [place] MEDICARE SUPPLEMEN HUMZA MEDEX BRONZ E Feb 14, 2022 [id number] CARIE MAE PATIENT BCBS [place] MEDICARE SUPPLEMEN HUMZA MEDEX BRONZ E Oct 15, 2008 [id number] [phone] CARIE MAE PATIENT [place]BS OF [place] MEDICARE SUPPLEMEN HUMZA MEDEX HEARI NG AND Mar 17, 2019 [id number] CARIE MAE PATIENT MEDICARE ([place]NR) MEDICARE (M) PART A Oct 15, 2008 PART A [id number] CARIE MAE PATIENT MEDICARE (WNR) MEDICARE (M) PART B Oct 15, 2008 PART B [id number] [phone] CARIE MAE PATIENT MEDICARE (WNR) MEDICARE (M) PART A Oct 15, 2008 PART A [id number] CARIE MAE PATIENT MEDICARE (WNR) MEDICARE (M) PART B Oct 15, 2008 PART B [id number] CARIE MAE PATIENT MEDICARE (WNR) MEDICARE (M) PART A Oct 15, 2008 PART A [id number] CARIE MAE PATIENT MEDICARE (WNR) MEDICARE (M) PART B Oct 15, 2008 PART B [id number] [phone] CARIE MAE PATIENT MEDICARE (WNR) MEDICARE (M) PART A Oct 15, 2008 PART A [id number] CARIE MAE PATIENT MEDICARE (WNR) MEDICARE (M) PART B Oct 15, 2008 PART B [id number] CARIE MAE PATIENT Selected Encounter This section includes the information on record at [place] for the Encounter. Date/Time Encounter Type Encounter Description Reason Provider Source Apr 21, 2024 10:00 AM OFF/OP EST JULY X REQ PHY/QHP PRIMARY CARE/MEDICINE ICD-10-CM Z71.89 Other specified counseling YAZMIN PARIKH E Encounter Template Text not used by [place] Assessments - Encounter Diagnoses This section includes the primary and secondary diagnoses documented for the Encounter. Date/Time Primary/Secondary Diagnosis Diagnosis Name Provider Source Apr 21, 2024 11:24 AM PRIMARY Other specified counseling YAZMIN PARIKH [facility] [facility] [place] [facility] Plan of Treatment: Future Appointments (+ 6 months) and Future Tests (+/- 45 days) The Plan of Treatment section includes future care activities for the patient from all [place] [facility]. This section includes future appointments and future orders which are active, pending or scheduled. Future Appointments This section includes appointments that were scheduled to occur 6 months from the date of the Encounter, up to a maximum of 20 appointments. The data comes from all [facility]. Appointment Date/Time Appointment Type Appointme nt Facility Name May 14, 2024 01:30 PM AMBULATORY - MEDICINE [facility] [place] [facility] May 18, 2024 08:00 AM AMBULATORY - MEDICINE [facility] [place] [facility] May 26, 2024 02:30 PM AMBULATORY - REHAB MEDICIN E [facility] [place] [facility] Jun 03, 2024 10:00 AM AMBULATORY - MEDICINE [facility] [place] [facility] Jun 17, 2024 10:30 AM AMBULATORY - MEDICINE [facility] [place] [facility] Jul 14, 2024 02:00 PM AMBULATORY - REHAB MEDICIN E [facility] [place] [facility] July 23, 2024 09:00 AM AMBULATORY - MEDICINE [facility] [place] [facility] July 26, 2024 10:00 AM AMBULATORY - REHAB MEDICIN E [facility] [place] [facility] Sep 28, 2024 08:30 AM AMBULATORY - MEDICINE [facility] [facility] [place] [facility] Active, Pending, and Scheduled Orders This [...] comes from all [facility]. Test Date/Time Test Type Test Details Facility Name Apr 21, 2024 01:04 PM Consult Order COMMUNITY CARE-UROLOGY Cons Mandrel Press Hand's Choice [facility] [place] [facility] Lab Results: +/- 30 days of the encounter This section includes the Chemistry and Hematology Lab Results on record with [place] for the patient. Radiology Reports and Pathology Reports are provided separately, in subsequent sections. Lab Results This section contains the Chemistry/Hematology Results that were resulted 30 days before or 30 daysafter the date of the Encounter. Date/Time Source Result Type Result - Unit Interpretation Reference Range Specimen Type Comment May 04, 2024 07:49 AM [facility] PSA SERUM Specimen Type: SERUM No comment entered. Ordering Provider: YORDY GARCIA Report Released Date/Time: Nov 11, 2023 11:31 AM Reporting Lab[facility] [place] [facility] [address] [facility] [address] Performing Lab: [facility] [address] [facility] [address] PSA 4.75 ng/mL H 0.00-4.00 May 04, 2024 07:49 AM [facility] LIPID PANEL FASTING SERUM Specimen Type: SERU M No comment entered. Ordering Provider: DILAN GARCIA Report Released Date/Time: Nov 11, 2023 11:31 AM Reporting Lab: [facility] [address] [facility] [address] Performing Lab: [facility] [address] [facility] [address] CHOLESTEROL 192 mg/dL TRIGLYCERIDE 98 mg/dL 0-150 LDL calculated 130 mg/dL H 0-129 CHOL/HDL 4.6 HDL CHOLESTEROL 42 mg/dL 40-60 May 04, 2024 07:49 AM [facility] LIVER FUNCTION SERUM Specimen Type: SERUM No comment entered. Ordering Provider: DILAN GARCIA Report Released Date/Time: Nov 11, 2023 11:31 AM Reporting Lab: [facility] [place] [facility] [address] [facility] [address] Performing Lab: [facility] [address] [address] PROTEIN,TOTAL 6.9 g/dL 6.0-8.3 ALBUMIN 3.8 g/dL 3.5-5.0 ALKALINE PHOSPHATASE 44 U/L 40-150 AST 16 U/L 5-34 ALT 16 U/L BILIRUBIN, TOTAL 0.3 mg/dL 0.2-1.2 May 04, 2024 07:49 AM [facility] BASIC METABOLIC PANEL (fasting) SERUM Specime n Type: SERUM No comment entered. Ordering Provider: DILAN GARCIA Report Released Date/Time: Nov 11, 2023 11:31 AM Reporting Lab: [facility] [address] [facility] [address] Performing Lab: [facility] [address] [address] UREA NITROGEN 18 mg/dL 7-25 GLUCOSE 100 [...] and tobacco- related health factors from the [place] facility where the Encounter took place. Current Smoking Status This section includes the most current smoking, or tobacco-related health factor, from the [place] facility where the Encounter took place. Date/Time Current Smoking Status Comment Leona weiss Nov 11, 2023 11:00 AM VA-TOBACCO NEVER USED [facility] Tobacco Use History This section includes a history of the smoking, or tobacco-related health factors, that were collected on or before the date of the Encounter. The data comes from the [place] facility where the Encounter took place. Date/Time Smoking Status/Tobacco Use Comment F acility Sep 27, 2022 10:30 AM VA-TOBACCO FORMER USER [facility] [facility] [place] [facility] Sep 27, 2022 10:30 AM VA-TOBACCO QUIT 15 YRS OR MORE [facility] [place] [facility] Aug 30, 2021 09:20 AM VA-TOBACCO FORMER USER [place] [facility] [place] [facility] Aug 30, 2021 09:20 AM VA-TOBACCO QUIT 15 YRS OR MORE [facility] August 07, 2020 09:00 AM VA-TOBACCO FORMER USER [facility] [place] [facility] August 07, 2020 09:00 AM VA-TOBACCO QUIT 15 YRS OR MORE [facility] Jul 12, 2019 10:05 AM VA-TOBACCO FOR[facility] USER [facility] Jul 12, 2019 10:05 AM VA-TOBACCO QUIT 15 YRS OR MORE [facility] Jul 03, 2018 10:51 AM VA-TOBACCO FOR[facility] USER [facility] Jul 03, 2018 10:51 AM VA-TOBACCO QUIT 5 TO < 15 YRS [facility] Sep 01, 2017 10:25 AM QUIT TOBACCO USE > 7 YEARS AGO [facility] Aug 29, 2016 09:22 AM QUIT TOBACCO USE > 7 YEARS AGO [facility] August 15, 2015 02:32 PM QUIT TOBACCO USE > 7 YEARS AGO [facility] Advance Directives: All historical and current Section Date Range: From patient's date of to the date document was created. This section includes ALL of a patient's completed or amended [place] Advance and Rescinded Directives. The entries below indicate that a directive exists for the patient, but an actual copy is not included with this document. The data comes from all [place] facilities. Date Advance Directives Provider Source Dec 17, 2018 ADVANCE DIRECTIVE LIZ HERNANDEZ [facility] May 30, 2017 ADVANCE DIRECTIVE VICTOR MANUEL PAINTING [facility] Dec 25, 2005 ADVANCE DIRECTIVE IRENA OSEI-JOHNN[facility] Pathology Reports: +/- 30 days of [...] the Encounter. The data comes from all [place] treatment facilities. Date/Time Pathology Report Provider Source Mar 22, 2024 08:09 AM LR MICROBIOLOGY RE PORT: Reporting Lab: [facility] [CLIA# [id number]] [address] [place] [address] Accession [UID]: [id number] [[id number]] Received: Mar 22, 2024@11:17 Collection sample: URINE CLEAN CATCH Collection date: Mar 22, 2024 08:09 Site/Specimen: URINE Provider: PEBBLES LION Test(s) ordered: URINE CULTURE(MWROX).......... completed: Mar 25, 2024 08:18 * BACTERIOLOGY FINAL REPORT => Mar 25, 2024 08:18 TECH CODE: [id number] Bacteriology Remark(s): <10,000 CFU/ML GRAM POSITIVE (NOT OTHERWISE SPECIFIED) <10,000 CFU/ML MIXED GRAM POSITIVE ROSA No further workup =--=--=--=--=--=--=--=-- =--=--=--=--=--=--=--=-- =--=--=--=--=--=--=--=-- =--=-- Performing Laboratory: Bacteriology Report Performed By: [facility] [CLIA# [id number]] [address] [place] [address] JOEL COHN [facility] Encounter Notes: All associated encounter notes This section contains the clinical notes associated to the Encounter. Date/Time Encounter Note(s) Provider Source Apr 21, 2024 11:17 AM [facility]: LOCAL TITLE: AMBULATORY/OUTPATIENT CARE NOTE STANDARD TITLE: PRIMARY CARE OUTPATIENT NOTE DATE OF NOTE: APR 21, 2024@11:17 ENTRY DATE: APR 21, 2024@11:17:49 AUTHOR: OCTAVIA PARIKH EXP COSIGNER: URGENCY: STATUS: COMPLETED F: Requested Consultations D/A: Vet and spouse present to primary care to report new medication prescribed by Community oncologist Dr. Canela with [facility]. Vet reports he has been seeing this provider for several years to care for his prostate CA. He had a visit 04/19/24 where a new medication was prescribed due to an increase in his PSA. Vet states prescription was [place] to [place] pharmacy. Unfortunately Vet's [place] consult has . RN entered new consultation HFS by PCP. Will alert Vet when approved to have prescription resent to [place] pharmacy. Vet unable to provide details on medication name and dosing. Vet also states he will be returning for F/U with Dr. Edward 1 week after starting medication. Vet states he will have office note sent to PCP, fax number provided. Vet also requesting consultation for CC urology with Dr. Diana. Consult entered HFS by PCP. R: Will alert PCP to above /juliann/ Octavia LUNDBERG RN CNL Primary Care RN Signed: 04/21/2024 11:24 Receipt Acknowledged By: 04/21/2024 13:47 /juliann/ Dilan Garcia PA-C STAFF PHYSICIAN INSIDE SALES ADMINISTRATOR [facility]
--- OUTSIDE RECORDS SUMMARY | 2024-07-23 11:40 | XMS_ITS | Encounter Summary ---
Author Name [facility] [place] Organization [place] Address [address] [place] [address] Care Team Providers Care Bottom Bleacher Name Role Phone DILAN LOPEZ Primary Care [...] O MEDEX BRONZ E Oct 15, 2008 [id number] [phone] CARIE MAE PATIENT ANTHEM BCBS OF CT (BLUECARD) MEDICARE SUPPLEMEN HUMZA MEDEX BRONZ E Feb 14, 2022 [id number] CARIE MAE PATIENT [place] SUPPLEMEN HUMZA MEDEX BRONZ E Feb 14, 2022 [id number] [phone] CARIE MAE [place] SUPPLE[place] HUMZA MEDEX BRONZ E Oct 15, 2008 [id number] CARIE MAE PATIENT [place] SUPPLEMEN HUMZA MEDEX HEARI NG AND Mar 17, 2019 [id number] CARIE MAE PATIENT MEDICARE (WNR) MEDICARE (M) PART A Oct 15, 2008 PART A [id number] CARIE MAE PATIENT MEDICARE (WNR) MEDICARE (M) PART B Oct 15, 2008 PART B [id number] CARIE MAE PATIENT MEDICARE (WNR) MEDICARE (M) PART A Oct 15, 2008 PART A [id number] CARIE MAE PATIENT MEDICARE (WNR) MEDICARE (M) PART B Oct 15, 2008 PART B [id number] [phone] CARIE MAE PATIENT MEDICARE (WNR) MEDICARE (M) PART A Oct 15, 2008 PART A [id number] CARIE MAE PATIENT MEDICARE (WNR) MEDICARE (M) PART B Oct 15, 2008 PART B [id number] [phone] CARIE MAE PATIENT MEDICARE (WNR) MEDICARE (M) PART A Oct 15, 2008 PART A [id number] [phone] CARIE MAE PATIENT MEDICARE (WNR) MEDICARE () PART B Oct 15, 2008 PART B [id number] [phone] CARIE MAE PATIENT Selected Encounter This section includes the information on record at [place] for the Encounter. Date/Time Encounter Type Encounter Description Reason Provider Source Jul 14, 2024 02:00 PM HEARING AID REPAIR/MODIFYING AUDIOLOGY ICD-10-CM Z46.1 Encounter for fitting and adjustment of hearing aid NADER OMER Encounter Template Text not used by [place] Assessments - Encounter Diagnoses This section includes the primary and secondary diagnoses documented for the Encounter. Date/Time Primary/Secondary Diagnosis Diagnosis Name Provider Source Jul 14, 2024 02:16 PM PRIMARY Encounter for fitting and adjustment of hearing aid ROBBY KAY [facility] [place] [facility] Jul 14, 2024 02:16 PM SECONDARY Sensorineural hearing loss, bilateral ROBBY KAY [facility] Plan of Treatment: Future Appointments (+ 6 months) and Future Tests (+/- 45 days) The Plan of Treatment section includes future care activities for the patient from all [place] [facility]. This section includes future appointments and future orders which are active, pending or scheduled. Future Appointments This section includes appointments that were scheduled to occur 6 months from the date of the Encounter, up to a maximum of 20 appointments. The data comes from all [place] treatment facilities. Appointment Date/Time Appointment Type Appointme nt Facility Name July 23, 2024 09:00 AM [facility] July 26, 2024 10:00 AM AMBULAT[facility] Sep 28, 2024 08:30 AM AMBULATORY - MEDIC[facility] Nov 17, 2024 01:00 PM [facility] Dec 15, 2024 09:30 AM AMBULAT[facility] - [facility] Dec 15, 2024 10:00 AM AMBULAT[facility] Social History: Smoking Status (Most current) and Tobacco Use (All prior to encounter date) This section includes the most current, and the historical, smoking and tobacco- related health factors from the [place] facility where the Encounter took place. Current Smoking Status This section includes the most current smoking, or tobacco-related health factor, from the [place] facility where the Encounter took place. Date/Time Current Smoking Status Comment Leona ity Nov 11, 2023 11:00 AM VA-TOBACCO NEVER USED [facility] Tobacco Use History This section includes a history of the smoking, or tobacco-related health factors, that were collected on or before the date of the Encounter. The data comes from the [place] facility where the Encounter took place. Date/Time Smoking Status/Tobacco Use Comment F acility Sep 27, 2022 10:30 AM VA-TOBACCO FOR[facility] USER [facility] Sep 27, 2022 10:30 AM VA-TOBACCO QUIT 15 YRS OR MORE [facility] Aug 30, 2021 09:20 AM VA-TOBACCO FORMER USER [facility] [place] [facility] Aug 30, 2021 09:20 AM VA-TOBACCO QUIT 15 YRS OR MORE [facility] [place] [facility] August 07, 2020 09:00 AM VA-TOBACCO FORMER USER [facility] [place] [facility] August 07, 2020 09:00 AM VA-TOBACCO QUIT 15 YRS OR MORE [facility] [place] [facility] Jul 12, 2019 10:05 AM VA-TOBACCO FORMER USER [facility] [place] [facility] Jul 12, 2019 10:05 AM VA-TOBACCO QUIT 15 YRS OR MORE [facility] [place] [facility] Jul 03, 2018 10:51 AM VA-TOBACCO FORMER USER [facility] [place] [facility] Jul 03, 2018 10:51 AM VA-TOBACCO QUIT 5 TO < 15 YRS [facility] [place] [facility] Sep 01, 2017 10:25 AM QUIT TOBACCO USE > 7 YEARS AGO [facility] [place] [facility] Aug 29, 2016 09:22 AM QUIT TOBACCO USE > 7 YEARS AGO [facility] [place] [facility] August 15, 2015 02:32 PM QUIT TOBACCO USE > 7 YEARS AGO [facility] [place] [facility] Advance Directives: All historical and current Section Date Range: From patient's date of to the date document was created. This section includes ALL of a patient's completed or amended [place] Advance and Rescinded Directives. The entries below indicate that a directive exists for the patient, but an actual copy is not included with this document. The data comes from all [place] facilities. Date Advance Directives Provider Source Dec 17, 2018 ADVANCE DIRECTIVE LIZ HERNANDEZ [facility] [place] [facility] May 30, 2017 ADVANCE DIRECTIVE VICTOR MANUEL PAINTING [facility] [place] [facility] Dec 25, 2005 ADVANCE DIRECTIVE IRENA OSEI [facility] Encounter Notes: All associated encounter notes This section contains the clinical notes associated to the Encounter. Date/Time Encounter Note(s) Provider Source Jul 14, 2024 07:38 AM AUDIOLOGY NOTE: LOCAL TITLE: AUDIOLOGY [facility] HELPER STANDARD TITLE: AUDIOLOGY NOTE DATE OF NOTE: JUL 14, 2024@07:38 ENTRY DATE: JUL 14, 2024@07:38:45 AUTHOR: DAVID KAY COSIGNER: NADER MOER URGENCY: STATUS: COMPLETED July 14, 2024 History/Background: was seen for a hearing aid follow up, unaccompanied. The presented today reporting discomfort while wearing his hearing aids. The stated he is only able to wear the hearing aids for one day then he has pain inside his ears for about a week. He noted that he has not worn the hearing aids in a couple weeks. Hearing aids: Denisha EVOLV AI MICRO [employer] Serial Numbers: [id number] Battery size: 312 Date Issued: 10/08/2022 AND Hearing aids: Denisha CONNER AI MICRO RICs Serial Numbers: [id number] Battery size: 312 Date Issued: 01/01/2019 Hearing aid check: Both hearing aids were cleaned and checked. Upon inspection of the hearing aids it was noted that the Laurel was wearing a right Evolv and left Conner. The Conner has a 3/50 missile tracking technician while the Evolv has a 4/60. When asked the noted the discomfort is mostly on the left side. It is likely that the shorter missile tracking technician is causing the pain. Replaced the left missile tracking technician with a 4/50 and the jessie cover is now dark brown so the Laurel can tell it apart from the Evolv hearing aid, also replaced the 6mm open dome with a 7mm open dome. Evolv replaced jessie cover, wax guard and dome. Biologic check was good. The was given a small supply of 6mm and 7mm open domes to trial which he prefers. The will contact the clinic should the hearing aids continue to cause discomfort, Discussed the possibility of switching to custom earmolds. Advised the Laurel to bring all of his hearing aids to his next appointment to separate the sets of hearing aids for him. Plan: The will follow up as needed. /juliann/ DAVID KAY Audiology Health Night Custodian Signed: 07/14/2024 14:17 /juliann/ NADER Chanel, [facility]-A CHIEF, AUDIOLOGY/DOOR INSTALLER Cosigned: 07/14/2024 15:16 DAVID KAY [facility]
[2024-07-23 11:46] LABS: Alanine Aminotransferase 16 U/L (0-40); Alkaline Phosphatase 57 U/L (39-117); Anion Gap 9 (12-20); Aspartate Amino Transferase 19 U/L (5-37); Bilirubin Total 0.5 mg/dL (0.0-1.0); Blood Urea Nitrogen 21 mg/dL (9-16); Calcium 9.1 mg/dL (8.4-10.2); Carbon Dioxide 27 mmol/L (22-29); Chloride 98 mmol/L (96-108); Creatinine Clr Calc Pharmacy 70.2; Estimated Glomerular Filt Rate > 60; Glucose Random 105 mg/dL (60-115); Sodium 130 mmol/L (135-145); Total Protein 7.1 g/dL (6.5-8.0)
[2024-07-23 11:47] LABS: Lactic Acid 0.5 mmol/L (0.5-2.0)
[2024-07-23 12:00] VITALS: BP 141/66; PULSE 68; RESP 20; TEMP 36.8; O2SAT 99
[2024-07-23] MEDS: Piperacillin Sodium/Tazobactam 4.5 GM in 0.9 % Sodium Chloride 100 ML IV (12:00)
--- NOTE | 2024-07-23 12:10 | PC.NURSE ---
iv access obtained, labs, lactic and cultures obtained, zosyn infusing, pt awaiting CT imaging
[2024-07-23] MEDS: diphenhydrAMINE HCL 50 MG/ML VIAL 25 MG IVPUSH (12:34)
--- NOTE | 2024-07-23 12:34 | MHC.EDTECH ---
pt ambulated to and from bathroom with a steady gait, urine sample collected and sent to lab
[2024-07-23 12:40] LABS: Appearance Urine Clear; Color Urine Yellow; Glucose Urine UA Negative (Negative); Leukocyte Esterase Urine Trace (Negative); Nitrite Urine Negative (Negative); Specific Gravity - Urine 1.015 (1.005-1.025); UMIC TRIGGER UACC YES; Urine Blood Negative (Negative); Urine Ketones Negative (Negative); Urine Protein Negative (Neg-Trace)
[2024-07-23 12:43] LABS: Bacteria Urine None Seen (None Seen); Hyaline Casts Urine 0-2 /LPF (0-2); RBC Urine 0-2 /HPF (0-2); Squamous Epithelial Cell Urine 0-2 /HPF (0-2); UACC Culture Trigger YES
[2024-07-23] MEDS: iohexoL 350 MG/ML 100 ML INFUS..BTL IV (13:34)
[2024-07-23 14:53] VITALS: BP 98/53; PULSE 66; RESP 16; TEMP 36.8; O2SAT 95
[2024-07-23 16:30] VITALS: BP 124/54; PULSE 65; RESP 20; TEMP 36.8; O2SAT 95
[2024-07-23] MEDS: Doxycycline Monohydrate 100 MG CAPSULE PO (16:45)
[2024-07-23] MEDS: cephALEXin 500 MG CAPSULE PO (16:45)
[2024-07-23 16:55] VITALS: BP 124/54; PULSE 65; RESP 20; TEMP 36.8; O2SAT 95
== END 2024-07-23 16:55 | disposition home or self-care (01) ==
PROVIDERS: Emergency Provider Emergency Medicine Emergency Medical Services; PCP Physician Assistant
DX: L03.314 Cellulitis of groin (principal); R10.31 Right lower quadrant pain; C61 Malignant neoplasm of prostate; C79.51 Secondary malignant neoplasm of bone; Z79.01 Long term (current) use of anticoagulants; Z79.899 Other long term (current) drug therapy
CPT/HCPCS: 36415; 72193; 80053; 81001; 83605; 85025; 87040; 87086; 87147; 87205; 96365; 96375; 99284; J1200; J2543; J2919; Q9967

== ENCOUNTER → 2024-07-23 11:31 | Outpatient (BNV) | payer MEDICARE, SELFPAY | PROVIDERS: Emergency Provider Emergency Medicine Emergency Medical Services; PCP Physician Assistant; Visit Provider Radiology Diagnostic Radiology | DX: S30.22XA Contusion of scrotum and testes, initial encounter (principal) | CPT/HCPCS: 72193 ==

== ENCOUNTER 2024-08-04 06:52 | Emergency (ER) | payer MEDICARE, SELFPAY ==
[2024-08-04 07:09] VITALS: BP 139/74; PULSE 72; RESP 16; TEMP 36.6; O2SAT 96; BMI 32.7
--- NOTE | 2024-08-04 08:04 | ED.GENADULT ---
HPI - General Adult General Chief complaint: General Medical Stated complaint: cyst on groin Time Seen by Provider: 08/04/24 08:02 Source: patient, RN notes reviewed and old records reviewed Mode of arrival: ambulatory Limitations: no limitations History of Present Illness ED Provider: Ila Heard PA-C HPI narrative: 78 yo male with history of prostate cancer with metastasis to the bone, history of bilateral orchiectomy, HTN, Afib on Eliquis who was seen here on 07/24 for right inguinal cellulitis (no abscess on CT) and discharged with doxycyline and keflex who presents back today for re-evaluation of infection in the right groin. He reports that a couple of days after he was discharge the area opened up and large amounts of pus came out. He completed his course of antibiotics in the surrounding redness resolved. He reports every couple of days a small amount of pus is coming out and he wants to get the area re-evaluated to make sure that that is not infected again. He denies any fever or chills. He denies any scrotal pain. No longer redness over the area. It is sensitive to touch but no significant pain. He is not diabetic. MD complaint: Right inguinal abscess evaluation Onset (ago): week(s) Location: genitals and right Radiation: non-radiation Severity: mild Quality: aching Pain Consistency: intermittent Relieving factors: rest Exacerbating factors: other (palpation) Associated symptoms: denies other symptoms Treatments prior to arrival: none Related Data Home Medications ?Medication ?Instructions ?Recorded ?Confirmed apixaban 2.5 mg tablet (Eliquis) 2.5 mg PO BID 11/13/22 06/18/23 lisinopril 5 mg tablet mg PO 11/13/22 06/18/23 prednisone 5 mg tablet mg PO 11/13/22 06/18/23 hydrochlorothiazide 25 mg tablet 25 mg PO DAILY 12/20/22 06/18/23 Previous Rx's ?Medication ?Instructions ?Recorded mirabegron 25 mg tablet,extended 25 mg PO DAILY 90 days #90 tabs 12/20/22 release 24 hr cephalexin 500 mg capsule 500 mg PO QID 5 days #20 caps 07/23/24 doxycycline hyclate 100 mg tablet 100 mg PO Q12H 5 days #10 tabs 07/23/24 Allergies Allergy/AdvReac Type Severity Reaction Status Date / Time bicalutamide Allergy Mild Unknown Verified 08/04/24 07:11 Iodinated Contrast Media Allergy Mild Unknown Verified 08/04/24 07:11 Review of Systems Review of Systems: Yes all other systems are reviewed and are negative [facility] Past Medical History Medical History Weak urinary stream Nocturia Metastatic malignant neoplasm to prostate Microscopic hematuria Social History Social History Smoked in Last 30 Days: No Use of substances other than those prescribed or required for medical reasons: No Advance Directives: No Advance Directives Information Provided: Yes Do you have a plan to hurt others: No Plan Physical Exam ED Vital Signs: Vital Signs - 24 hr 08/04/24 07:09 08/04/24 08:31 08/04/24 09:25 Temperature 97.8 F 98.0 F 98.0 F Pulse Rate 72 63 63 Respiratory Rate 16 18 18 Blood Pressure 139/74 152/81 H 152/81 H Pulse Oximetry 96 98 98 Oxygen Delivery Method Room Air Room Air Room Air BMI result Body Mass Index 32.7 Appearance: Alert. Oriented X3. No acute distress. HEENT: normal external inspection Neck: Normal inspection. CVS: Normal heart rate and rhythm. Respiratory: No respiratory distress. Skin: Skin warm and dry. Normal skin color. Normal skin turgor. No rashes.In the right groin there is a small area approx 2cm x 1cm of induration with punctate area of darkening centrally, no overylying warmth or erythema, minmally tender Extremities: No lower extremity edema. No joint swelling. Neuro/psych: Oriented X 3. grossly normal, nonfocal. Normal speech and cognition. Medications Administered Discontinued Medications Generic Name Dose Route Start Last Admin Trade Name Freq PRN Reason Stop Dose Admin Lidocaine HCl 5 ml 08/04/24 08:49 08/04/24 09:23 Lidocaine Hcl 2 % Mpf 5 Ml Vial INFILTRATI 08/04/24 08:50 5 ml ONCE ONE Administration Procedures Abscess I/D Site: lower extremity Side (if applicable): right Local Anesthetic: lidocaine 2% Amount of anesthesia used (mL): 1 Technique: incised with blade Sent for culture/gram staining?: No Irrigation: Yes Packing used?: none Medical Decision Making Medical Decision Making [facility] Narrative: 78-year-old male presents to the ER for re-evaluation of an infection in his right groin. started on the , improved significantly with antibiotics but not completely resolved. Intermittently still draining. describes the material as a thickened material with Poppy seeds. bedside ultrasound showed a organized fluid collection very superficially, approximately 2 cm wide. Risks and benefits of incision and drainage were discussed with the patient he is willing to proceed with incision and drainage today. See procedure note. Tolerated well. It was more thickened and cellular debris type material cw/ cyst and not pus or infection. No role for further antibiotics at this time. No evidence of cellulitis. At this time is stable for discharge home with plan to follow-up with his PCP and his vacuum cleaner operator for possible cyst sac removal. Differential Diagnosis Differential Diagnoses: The differential diagnosis associated with the presentation includes Abscess, epidermal cysts, cellulitis, no evidence of Tc gangrene Admission/Observation Consideration of admission/observation: Escalation of care including admission/observation considered Lab Data [facility] Lab Attestation statement: I reviewed the patient's lab results. mild anemia, no leukocytosis 08/04/24 08:23 08/04/24 08:23 Labs: Lab Results 08/04/24 Range/Units 08:23 WBC 5.5 (4.8-10.8) X10*3/uL RBC 4.44 L (4.60-5.80) X10*6/uL Hgb 12.5 L (14.0-18.0) g/dl Hct 38.0 L (42.0-52.0) % MCV 85.6 (80.0-98.0) fL MCH 28.2 (27.0-33.0) pg MCHC 32.9 (31.0-36.0) g/dl RDW 14.4 (11.0-16.0) % Plt Count 213 (160-400) X10*3/uL MPV 9.9 (9.4-12.4) fL Immature Gran % (Auto) 0.4 (0.0-0.4) % Neut % (Auto) 56.6 (45-73) % Lymph % (Auto) 27.7 (20-40) % Will % (Auto) 12.7 H (2-11) % Eos % (Auto) 2.0 (0-4) % Baso % (Auto) 0.6 (0-2) % Lymph # (Auto) 1.5 (1.2-4.9) X10*3/uL Will # (Auto) 0.7 (0.1-1.2) X10*3/uL Eos # (Auto) 0.1 (0.0-0.4) X10*3/uL Baso # (Auto) 0.0 (0.0-0.2) X10*3/uL Abs Immat Gran (auto) 0.02 (0.00-0.03) X10*3/uL Absolute Neuts (auto) 3.1 (2.0-8.3) x10*3/uL Absolute Nucleated RBC 0.000 (0.0-0.012) X10*3/uL Nucleated RBC % (auto) 0.0 (0.0-0.2) /100WBC Sodium 138 (135-145) mmol/L Potassium 4.4 (3.3-5.1) mmol/L Chloride 107 (96-108) mmol/L Carbon Dioxide 24 (22-29) mmol/L Anion Gap 11 L (12-20) BUN 15 (9-16) mg/dL Creatinine 0.88 (0.5-1.4) mg/dL Estim Creat Clear Calc 75.7 Estimated GFR > 60 Random Glucose 103 (60-115) mg/dL Calcium 8.9 (8.4-10.2) mg/dL External Record Review External record reviewed: Outpatient record, Prior outpatient labs and Prior outpatient radiology Tests considered The following testing was considered but not selected: repeat CT scan was considered, physical exam is reassuring Prescription Management I considered prescription management with: Antibiotic Chronic Conditions Patient?s care impacted by: Other ( prostate cancer) Critical Care Time Critical Care Time Critical Care Time: No Discharge Plan Discharge Clinical Impression: Epidermal cyst Patient Disposition: Home, Self-Care Instructions: Epidermal Inclusion Cysts (ED) Additional Instructions: the cyst in your groin was incised and drained today - there was NO pus or infection, just cellular debris you do not need anymore antibiotics recommend continuing warm compresses. it may continue to ooze and drain today recommend following up with dermatology for further evaluation and treatment if you develop signs of infection such as redness, warmth, increased tenderness or drainage of pus call your doctor or come back to the ER for further evaluation Prescriptions: No Action cephalexin 500 mg capsule 500 mg PO QID 5 Days Qty: 20 0RF doxycycline hyclate 100 mg tablet 100 mg PO Q12H 5 Days Qty: 10 0RF lisinopril 5 mg tablet PO prednisone 5 mg tablet PO Eliquis 2.5 mg tablet 2.5 mg PO BID hydrochlorothiazide 25 mg tablet 25 mg PO DAILY mirabegron 25 mg tablet extended release 24 hr 25 mg PO DAILY 90 Days Qty: 90 1RF Referrals: Denis Gibson PA [Primary Care Provider] - Interventions: ED Discharge Assessment Last Done: 08/04/24 09:25 Discharge Date/Time: 08/04/24 09:25 Print Language: [place] Citizen
[2024-08-04 08:27] LABS: MANUAL DIFF FLAG NO
--- NOTE | 2024-08-04 08:30 | PC.NURSE ---
pt is alert and oriented, skin pwd, respirations even and unlabored, pt reports that almost a month now having a lump on the right sided of the groin area, that is painful, sometimes is draining and other days just a hard lump, was seen in the ED for it was started on ABX but its not getting better, pain at this time is 5/10, area is hard to the touch but not draining at this time
[2024-08-04 08:31] VITALS: BP 152/81; PULSE 63; RESP 18; TEMP 36.7; O2SAT 98
[2024-08-04 08:31] LABS: Basophils Percent Auto 0.6 % (0-2); Eosinophils Absolute Auto 0.1 X10*3/uL (0.0-0.4); Hemoglobin 12.5 g/dl (14.0-18.0); Imm Gran Abs Auto 0.02 X10*3/uL (0.00-0.03); Imm Gran Pct Auto 0.4 % (0.0-0.4); Lymphocytes Absolute Auto 1.5 X10*3/uL (1.2-4.9); Lymphocytes Percent Auto 27.7 % (20-40); Mean Corpuscular HGB Conc 32.9 g/dl (31.0-36.0); Mean Corpuscular Hemoglobin 28.2 pg (27.0-33.0); Mean Corpuscular Volume 85.6 fL (80.0-98.0); Mean Platelet Volume 9.9 fL (9.4-12.4); Monocytes Absolute Auto 0.7 X10*3/uL (0.1-1.2); Monocytes Percent Auto 12.7 % (2-11); Neutrophils Absolute Auto 3.1 x10*3/uL (2.0-8.3); Neutrophils Percent Auto 56.6 % (45-73); Platelet Count 213 X10*3/uL (160-400); Red Blood Count 4.44 X10*6/uL (4.60-5.80); Red Cell Distribution Width 14.4 % (11.0-16.0); White Blood Count 5.5 X10*3/uL (4.8-10.8)
[2024-08-04 08:39] LABS: Anion Gap 11 (12-20); Blood Urea Nitrogen 15 mg/dL (9-16); Calcium 8.9 mg/dL (8.4-10.2); Carbon Dioxide 24 mmol/L (22-29); Chloride 107 mmol/L (96-108); Creatinine Clr Calc Pharmacy 75.7; Estimated Glomerular Filt Rate > 60; Glucose Random 103 mg/dL (60-115); Potassium 4.4 mmol/L (3.3-5.1); Sodium 138 mmol/L (135-145)
[2024-08-04] MEDS: Lidocaine HCl 2 % MPF 5 ML VIAL INFILTRATI (09:23)
[2024-08-04 09:25] VITALS: BP 152/81; PULSE 63; RESP 18; TEMP 36.7; O2SAT 98
== END 2024-08-04 09:25 | disposition home or self-care (01) ==
PROVIDERS: Physician Assistant; Emergency Provider Emergency Medicine; PCP Physician Assistant
DX: L72.0 Epidermal cyst (principal); Z79.899 Other long term (current) drug therapy
CPT/HCPCS: 10060; 36415; 80048; 85025; 99284; J2003

== ENCOUNTER 2024-11-02 08:55 | Outpatient (REF) | payer MEDICARE, SELFPAY ==
--- OUTSIDE RECORDS SUMMARY | 2015-09-13 12:00 | XMS_ITS | Encounter Summary ---
Author Organization [facility] Address [address] [facility] [address] [place] [address] Phone Care Team Providers Care Hatchery Worker Name Role Phone Jaylen Oshea MD Primary Care Provider Rajendra Edward MD Unavailable [phone] Park Leo RN Unavailable [email or web address] Jaylen Oshea MD Unavailable [phone] Encounter Details Date Type Department Care Team (Late st Contact Info) Description 09/13/2015 12:00 PM EDT Hospital Encounter [facility], Radiology Department Unknown, Unknown, Social History Tobacco [...] 4:32 AM EDT Miriam Rivas RN * [place] Suicide Severity Rating Scale (Screener/Recent Self-Report) Question [...] Description 11/18/2024 8:30 AM EDT Office Visit [facility] at [facility] [address] [facility] [address] [place] [address] Rajendra Edward MD 20 [place] [phone] South@ [facility] Scheduled Orders Name Type Priority Associated Diagnoses [...] documented as of this encounter Care Teams Hatchery Worker Relationship Specialty Start Date End Date Jaylen Oshea MD [address] [place] [address] [email or web address] PCP - General 04/03/15 12/06/20 Rajendra Edward MD [address] [place] [phone] South@ [facility] Primary Oncologist Hematology and Oncology 05/08/15 Park Leo, WANDER [address] [place] [phone] [email or web address] Primary Infusion Nurse 05/08/15 Jaylen Oshea MD [address] [place] [address] [email or web address] Referring Physician 06/01/15 documented as of this encounter Additional Source Comments The information contained in this document represents components of the legal health record. It is not the complete legal health record.[facility]
--- OUTSIDE RECORDS SUMMARY | 2024-10-07 07:00 | XMS_ITS | Encounter Summary ---
Author Name [facility] [place] [facility] [place] Organization [facility] [place] [facility] [place] Address [address] [place] [address] Care Team Providers Care Ladle Patcher Name Role Phone DILAN LOPEZ Primary Care [...] O MEDEX BRONZ E Oct 15, 2008 [id number] CARIE MAE PATIENT ANTHEM BCBS OF CT (BLUECARD) MEDICARE SUPPLEMEN HUMZA MEDEX BRONZ E Feb 14, 2022 [id number] CARIE MAE PATIENT BCBS ID MEDICARE SUPPLEMEN HUMZA MEDEX BRONZ E Feb 14, 2022 [id number] CARIE MAE PATIENT BCBS ID MEDICARE SUPPLEMEN HUMZA MEDEX BRONZ E Oct 15, 2008 [id number] [phone] CARIE MAE PATIENT BCBS OF ID MEDICARE SUPPLEMEN HUMZA MEDEX HEARI NG AND Mar 17, 2019 [id number] CARIE MAE PATIENT MEDICARE (WNR) MEDICARE (M) PART A Oct 15, 2008 PART A [id number] CARIE MAE PATIENT MEDICARE (WNR) MEDICARE (M) PART B Oct 15, 2008 PART B [id number] [phone] CARIE MAE PATIENT MEDICARE (WNR) MEDICARE (M) PART A Oct 15, 2008 PART A [id number] CARIE MAE PATIENT MEDICARE (WNR) MEDICARE (M) PART B Oct 15, 2008 PART B [id number] CARIE MAE PATIENT MEDICARE (WNR) MEDICARE (M) PART A Oct 15, 2008 PART A [id number] CARIE MAE PATIENT MEDICARE (WNR) MEDICARE (M) PART B Oct 15, 2008 PART B [id number] CARIE MAE PATIENT MEDICARE (WNR) MEDICARE () PART A Oct 15, 2008 PART A [id number] [phone] CARIE MAE PATIENT MEDICARE (WNR) MEDICARE () PART B Oct 15, 2008 PART B [id number] [phone] CARIE MAE PATIENT Selected Encounter This section includes the information on record at [place] for the Encounter. Date/Time Encounter Type Encounter Description Reason Provider Source Oct 07, 2024 11:00 AM HEARING AID REPAIR/MODIFYIN G AUDIOLOGY ICD-10-CM Z46.1 Encounter for fitting and adjustment of hearing aid TWAN MEADOWS Kia Encounter Template Text not used by [place] Assessments - Encounter Diagnoses This section includes the primary and secondary diagnoses documented for the Encounter. Date/Time Primary/Secondary Diagnosis Diagnosis Name Provider Source Oct 07, 2024 11:25 AM PRIMARY Encounter for fitting and adjustment of hearing aid [facility] [place] [facility] Oct 07, 2024 11:25 AM SECONDARY Sensorineural hearing loss, bilateral [facility] Plan of Treatment: Future Appointments (+ 6 months) and Future Tests (+/- 45 days) The Plan of Treatment section includes future care activities for the patient from all [place] [facility]. This section includes future appointments and future orders which are active, pending or scheduled. Future Appointments This section includes appointments that were scheduled to occur 6 months from the date of the Encounter, up to a maximum of 20 appointments. The data comes from all [place] treatment facilities. Appointment Date/Time Appointment Type Appointme nt Facility Name Nov 03, 2024 10:00 AM AMBULATORY - [place]ICIN E [place] [facility] Nov 17, 2024 01:00 PM [facility] Dec 31, 2024 10:00 AM AMBULATORY - MEDICINE [facility] Feb 04, 2025 02:30 PM AMBULATORY - MEDICINE [facility] Feb 04, 2025 03:30 PM AMBULAT[facility] - [facility] Lab Results: +/- 30 days of [...] Type Comment Sep 28, 2024 09:11 AM [facility] CALCIUM IONIZED SERUM Specimen Type: SERUM Comment: Test Performed by [employer] [employer] [facility], [address] [place] [address] Juan Lynn M.D., Ph.D., Director of Laboratories , [place] [id number] TEST PERFORMED AT: , Ordering Provider: YORDY LOPEZ Report Released Date/Time: Sep 28, 2024 08:47 AM Reporting Lab: [facility] [address] [facility] [address] Performing Lab: [address] [place], [address] [place] [address] CALCIUM IONIZED 5.1 mg/dL 4.7-5.5 Sep 28, 2024 09:11 AM [facility] [place] [facility] PTH INTACT SERUM Specimen Type: SERUM No comment entered. Ordering Provider: DILAN LOPEZ Report Released Date/Time: Sep 28, 2024 08:47 AM Reporting Lab: [facility] [place] [facility] [address] [facility] [address] Performing Lab: [place] [facility] [place] [facility] [address] [facility] [address] PTH INTACT 50.1 pg/mL 8.7-77.1 Sep 28, 2024 09:11 AM [facility] [place] [facility] PO4 SERUM Specimen Type: SERUM No comment entered. Ordering Provider: DILAN LOPEZ Report Released Date/Time: Sep 28, 2024 08:47 AM Reporting Lab: [facility] [place] [place] [facility] [address] [facility] [address] Performing Lab: [facility] [place] [facility] [address] [facility] [address] PO4 3.6 mg/dL 2.5-4.5 Sep 28, 2024 09:11 AM [facility] MAGNESIUM SERUM Specimen Type: SERUM No comment entered. Ordering Provider: DILAN LOPEZ Report Released Date/Time: Sep 28, 2024 08:47 AM Reporting Lab: [facility] [place] [facility] [address] [facility] [address] Performing Lab: [facility] [place] [facility] [address] [facility] [address] MAGNESIUM 2.2 mg/dL 1.6-2.6 Sep 28, 2024 09:11 AM [facility] CALCIUM SERUM Specimen Type: SERUM No comment entered. Ordering Provider: DILAN LOPEZ Report Released Date/Time: Sep 28, 2024 08:47 AM Reporting Lab: [facility] [place] [place] [facility] [address] [facility] [address] Performing Lab: [place] [facility] [address] [facility] [address] CALCIUM 8.6 mg/dL L 8.8-10 Sep 23, 2024 07:32 AM [facility] PSA SERUM Specimen Type: SERUM No comment entered. Ordering Provider: DILAN LOPEZ Report Released Date/Time: May 18, 2024 08:43 AM Reporting Lab: [facility] [address] [facility] [address] Performing Lab: [facility] [address] [facility] [address] PSA 3.6 ng/mL 0-4 Sep 23, 2024 07:32 AM [facility] VITAMIN D (25-OH) SERUM Specimen Type: SERUM No comment entered. Ordering Provider: DILAN LOPEZ Report Released Date/Time: May 18, 2024 08:43 AM Reporting Lab: [address] [address] Performing Lab: [facility] [address] [facility] [address] VITAMIN D (25-OH) 35.2 ng/mL 20-50 Sep 23, 2024 07:32 AM [facility] LIPID PANEL FASTING SERUM Specimen Type: SERU M Comment: notified of corrected report 09/24/24 at 1610 by JED SODIUM reported incorrectly as 133 by [[id number]]. Changed to 138 on Sep 24, 2024@17:49 by [[id number]]. SODIUM flagged incorrectly as L by [[id number]]. Changed to normal on Sep 24, 2024@17:49 by [[id number]]. POTASSIUM reported incorrectly as 4.6 by [[id number]]. Changed to 4.8 on Sep 24, 2024@17:49 by [[id number]]. CHLORIDE reported incorrectly as 102 by [[id number]]. Changed to 105 on Sep 24, 2024@17:49 by [[id number]]. Ordering Provider: DILAN LOPEZ Report Released Date/Time: May 18, 2024 08:43 AM Reporting Lab: [facility] [address] [facility] [address] Performing Lab: [facility] [address] [facility] [address] CHOLESTEROL 176 mg/dL TRIGLYCERIDE 113 mg/dL 0-150 LDL calculated 108 mg/dL 0-129 CHOL/HDL 3.9 HDL CHOLESTEROL 45 mg/dL >40 Sep 23, 2024 07:32 AM [facility] BASIC METABOLIC PANEL (fasting) SERUM Specime n Type: SERUM Comment: notified of corrected report 09/24/24 at 1610 by JED SODIUM reported incorrectly as 133 by [[id number]]. Changed to 138 on Sep 24, 2024@17:49 by [[id number]]. SODIUM flagged incorrectly as L by [[id number]]. Changed to normal on Sep 24, 2024@17:49 by [[id number]]. POTASSIUM reported incorrectly as 4.6 by [[id number]]. Changed to 4.8 on Sep 24, 2024@17:49 by [[id number]]. CHLORIDE reported incorrectly as 102 by [[id number]]. Changed to 105 on Sep 24, 2024@17:49 by [[id number]]. Ordering Provider: DILAN LOPEZ Report Released Date/Time: May 18, 2024 08:43 AM Reporting Lab: [facility] [address] [facility] [address] Performing Lab: [facility] [address] [facility] [address] UREA NITROGEN 16 mg/dL 8-26 GLUCOSE 95 mg/dL 65-100 SODIUM 138 mmol/L L 136-145 POTASSIUM 4.8 mmol/L 3.5-5.1 CHLORIDE 105 mmol/L 98-107 CO2 27 meq/L 23-31 CALCIUM 8.5 mg/dL L 8.8-10 CREATININE, Serum 0.98 mg/dL 0.72-1.25 eGFR(CKD-EPI 2020) 77 mL/min >60 Sep 23, 2024 07:32 AM [facility] LIVER FUNCTION SERUM Specimen Type: SERUM Comment: notified of corrected report 09/24/24 at 1610 by JED SODIUM reported incorrectly as 133 by [[id number]]. Changed to 138 on Sep 24, 2024@17:49 by [[id number]]. SODIUM flagged incorrectly as L by [[id number]]. Changed to normal on Sep 24, 2024@17:49 by [[id number]]. POTASSIUM reported incorrectly as 4.6 by [[id number]]. Changed to 4.8 on Sep 24, 2024@17:49 by [[id number]]. CHLORIDE reported incorrectly as 102 by [[id number]]. Changed to 105 on Sep 24, 2024@17:49 by [[id number]]. Ordering Provider: DILAN LOPEZ Report Released Date/Time: May 18, 2024 08:43 AM Reporting Lab: [address] [address] Performing Lab: [address] [address] PROTEIN,TOTAL 7.1 g/dL 6.4-8.3 ALBUMIN 4.1 g/dL 3.2-4.6 ALKALINE PHOSPHATASE 56 U/L 40-150 AST 20 U/L 5-34 ALT 18 U/L 0-55 BILIRUBIN, TOTAL 0.4 mg/dL 0.2-1.2 Social History: Smoking Status (Most current) and [...] 11, 2023 11:00 AM VA-TOBACCO NEVER USED [facility] Tobacco Use History This section includes a history of the smoking, or tobacco-related health factors, that were collected on or before the date of the Encounter. The data comes from the [place] facility where the Encounter took place. Date/Time Smoking Status/Tobacco Use Comment F acility Sep 27, 2022 10:30 AM VA-TOBACCO FORMER USER [facility] [facility] Sep 27, 2022 10:30 AM VA-TOBACCO QUIT 15 YRS OR MORE [place] [facility] [place] [facility] Aug 30, 2021 09:20 AM VA-TOBACCO FORMER USER [facility] [place] [facility] Aug 30, 2021 09:20 AM VA-TOBACCO QUIT 15 YRS OR MORE [place] [facility] [place] [facility] August 07, 2020 09:00 AM VA-TOBACCO FORMER USER [place] [facility] [place] [facility] August 07, 2020 09:00 AM VA-TOBACCO QUIT 15 YRS OR MORE [place] [facility] [place] [facility] Jul 12, 2019 10:05 AM VA-TOBACCO FORMER USER [place] [facility] [place] [facility] Jul 12, 2019 10:05 AM VA-TOBACCO QUIT 15 YRS OR MORE [place] [facility] [place] [facility] Jul 03, 2018 10:51 AM VA-TOBACCO FORMER USER [place] [facility] [place] [facility] Jul 03, 2018 10:51 AM VA-TOBACCO QUIT 5 TO < 15 YRS [place] [facility] [place] [facility] Sep 01, 2017 10:25 AM QUIT TOBACCO USE > 7 YEARS AGO [place] [facility] [place] [facility] Aug 29, 2016 09:22 AM QUIT TOBACCO USE > 7 YEARS AGO [place] [facility] [place] [facility] August 15, 2015 02:32 PM QUIT TOBACCO USE > 7 YEARS AGO [place] [facility] [place] [facility] Advance Directives: All historical and current Section Date Range: From patient's date of to the date document was created. This section includes ALL of a patient's completed or amended [place] Advance and Rescinded Directives. The entries below indicate that a directive exists for the patient, but an actual copy is not included with this document. The data comes from all [place] facilities. Date Advance Directives Provider Source Dec 17, 2018 ADVANCE DIRECTIVE LIZ HERNANDEZ [facility] [place] [facility] May 30, 2017 ADVANCE DIRECTIVE VICTOR MANUEL [facility] Dec 25, 2005 ADVANCE DIRECTIVE OSEIIRENA Noreen BRENNAN [facility] Encounter Notes: All associated encounter notes This section contains the clinical notes associated to the Encounter. Date/Time Encounter Note(s) Provider Source Oct 19, 2024 01:44 PM ADDENDUM: LOCAL TITLE: Addendum STANDARD TITLE: ADDENDUM DATE OF NOTE: OCT 19, 2024@13:44:18 ENTRY DATE: OCT 19, 2024@13:44:20 AUTHOR: DAVID KAY EXP COSIGNER: URGENCY: STATUS: COMPLETED Silicone earmolds received and certified. Alerting the [facility] to contact the [facility] to schedule a 30 min HAC for pick-up. RTC entered. Earmolds placed in the black cabinet. /juliann/ DAVID KAY Audiology Health Chief Of Planning Signed: 10/19/2024 13:46 Receipt Acknowledged By: 10/19/2024 13:55 /juliann/ JOEL IRENE ADVANCED LEPIDOPTERIST ====== --- Original Document --- 10/07/24 AUDIOLOGY CLINIC: Dx CODE: Z46.1-Encounter for Fitting/Adjusting Hearing Aid(s); H90.3- Sensorineural Hearing Loss, Bilateral APPOINTMENT TYPE: Hearing Aid Programming HISTORY/BACKGROUND: The patient was seen for a hearing aid follow-up appointment, accompanied by his . He was fit with Denisha Evolv AI micro RICs on 10/08/22. He recently was switched to lucite earmolds after reporting the domes made his ears sore. He reports the earmolds are even more uncomfortable then the domes. He says the most comfortable set he had was his Denisha Z Series micro RICs (SN: [id number]) with size 6mm open domes. Explained to and that we have essentially explored all options and additionally should bring these concerns up to his PCP if he continues to have ear pain. HEARING AID CHECK: All 4 hearing aids were switched back to size 6mm open domes. [facility] was provided back with the lucite earmolds. The Evolv AI micro RICs were connected to [employer] and 10/08/22 settings were restored. 's inquired if could try silicone earmolds as a last attempt. These will be ordered using recent impressions on file. PLAN/RECOMMENDATION(S): 1. Once earmolds arrive, can be scheduled for a 30 minute HAC appointment. * Patient Education Education provided on the following topics: Hearing aids Education provided to: P, SO Response to Education: VU Wood Patient P Family F Significant Other SO Verbalizes Understanding VU Returns Demonstration RD Performs Independently PI Lacks Comprehension LC Refused Education RE Not Applicable NA * /juliann/ TWAN MEADOWS STAFF PROPOSAL SPECIALIST Signed: 10/07/2024 11:25 DAVID KAY [facility] [place] [facility] Oct 07, 2024 07:24 AM AUDIOLOGY E & M NOTE: LOCAL TITLE: AUDIOLOGY CLINIC STANDARD TITLE: AUDIOLOGY E & M NOTE DATE OF NOTE: OCT 07, 2024@07:24 ENTRY DATE: OCT 07, 2024@07:24:28 AUTHOR: TWAN MEADOWS COSIGNER: URGENCY: STATUS: COMPLETED AUDIOLOGY CLINIC Has ADDENDA Dx CODE: Z46.1-Encounter for Fitting/Adjusting Hearing Aid(s); H90.3- Sensorineural Hearing Loss, Bilateral APPOINTMENT TYPE: Hearing Aid Programming HISTORY/BACKGROUND: The patient was seen for a hearing aid follow-up appointment, accompanied by his . He was fit with Denisha Evolv AI micro RICs on 10/08/22. He recently was switched to lucite earmolds after reporting the domes made his ears sore. He reports the earmolds are even more uncomfortable then the domes. He says the most comfortable set he had was his Denisha Z Series micro RICs (SN: [id number]) with size 6mm open domes. Explained to and that we have essentially explored all options and additionally should bring these concerns up to his PCP if he continues to have ear pain. HEARING AID CHECK: All 4 hearing aids were switched back to size 6mm open domes. was provided back with the lucite earmolds. The Evolv AI micro RICs were connected to [employer] and 10/08/22 settings were restored. [facility] inquired if could try silicone earmolds as a last attempt. These will be ordered using recent impressions on file. PLAN/RECOMMENDATION(S): 1. Once earmolds arrive, can be scheduled for a 30 minute HAC appointment. * Patient Education Education provided on the following topics: Hearing aids Education provided to: P, SO Response to Education: BRYON Wood Patient P Family F Significant Other SO Verbalizes Understanding VU Returns Demonstration RD Performs Independently PI Lacks Comprehension LC Refused Education RE Not Applicable NA * /juliann/ TWAN MEADOWS STAFF PROPOSAL SPECIALIST Signed: 10/07/2024 11:25 10/19/2024 ADDENDUM STATUS: COMPLETED Silicone earmolds received and certified. Alerting the [facility] to contact the [facility] to schedule a 30 min HAC for pick-up. RTC entered. Earmolds placed in the black cabinet. /es/ DAVID KAY Audiology Health Chief Of Planning Signed: 10/19/2024 13:46 Receipt Acknowledged By: * AWAITING SIGNATURE * JOEL IRENE,TWAN PLASENCIA [facility]
--- NOTE | ~2024-11-02 | XR_ITS ---
EXAMINATION: XR HUMERUS, LEFT CLINICAL INFORMATION: S42.302A - Unspecified fracture of shaft of humerus, left arm, initial e... COMPARISON: October 22, 2024, outside institution TECHNIQUE: AP and lateral views of the left humerus. FINDINGS: Transverse oriented fracture through the proximal to mid diaphysis of the humerus resulting in 4.4 mm gap between the fragments and lateral angulation. No callus formation. No periosteal bone reaction. XR/XR humerus LT IMPRESSION: No healing fracture, right humerus. Electronically signed by: Layo De Jesus MD 11/02/2024 09:45 AM EDT
== END 2024-11-02 08:56 | disposition home or self-care (01) ==
LOC: HO.HOSX 08:55
PROVIDERS: Visit Provider Physician Assistant
DX: S42.302A Unspecified fracture of shaft of humerus, left arm, initial encounter for closed fracture (principal); Z79.01 Long term (current) use of anticoagulants; W01.0XXA Fall on same level from slipping, tripping and stumbling without subsequent striking against object, initial encounter; Y92.002 Bathroom of unspecified non-institutional (private) residence as the place of occurrence of the external cause
CPT/HCPCS: 73060; 99202

== ENCOUNTER 2024-11-02 09:20 | Outpatient (AMB) | payer MEDICARE, SELFPAY ==
--- NOTE | 2024-11-02 09:46 | MHC.OFFVIS ---
Vital Signs 11/02/24 09:50 Height 5 ft 8 in Weight 217 lb BMI 33.0 Handedness Right Intake Visit Reasons: FC- LT humerus fx Intake Note: Candelario is a 78 year old right hand dominant male who presents today with a sling for his left humerus fx, DOI 10/29/24. Patient reports he stepped in his shower and fell landing on his left side. He states that he is having pain and he took a Tramadol before coming to his visit today. Accompanied by: Spouse Allergies bicalutamide Allergy (Mild, Verified 11/02/24 09:49) Unknown Iodinated Contrast Media Allergy (Mild, Verified 11/02/24 09:49) Unknown HPI HPI FC- LT humerus fx: Details: Mr. Brock is an 78-year-old right-hand dominant male who presents to the office today for evaluation of a left humeral shaft fracture. Date of injury was 10/29/2024 when he stepped into the shower slipped and fell landing onto the left side. This happened in [place]. He presented to the emergency department there where he was given a Lew shoulder brace and sling and instructed to follow up outpatient for further evaluation and treatment. Of note, the patient has significant bruising because he is on Eliquis. Patient has been taking oxycodone and tramadol as needed for pain. [facility] Medical History Weak urinary stream Nocturia Metastatic malignant neoplasm to prostate Microscopic hematuria Social History (Updated 11/02/24 @ 09:50 by Danya Leon) Alcohol intake: never Patient Tobacco Use Status: Never used Tobacco Current occupational status: retired Current occupation: right hand dominant Review of Systems Const All systems reviewed & are unremarkable except as noted in HPI and below Physical Exam Vital Signs: BMI result Body Mass Index 33.0 Const General: cooperative, healthy appearing and no acute distress Resp Effort & Inspection: normal respiratory effort and able to speak in complete sentences Extrem Other: Left upper extremity significant bruising circumferentially about the humerus. Large hematoma noted over the fracture site. Patient reports deltoid sensation is intact. He is able to flex and extend at the wrist. Able to extend and close all digits. Sensation is reportedly intact at all digits. Radial pulse intact. Psych Appearance: grossly normal Mental Status: mental status grossly normal Attitude: cooperative Office Procedures AMB Fracture Care Fracture Billing Code: Fracture Billing Code Assessment & Plan Assessment & Plan (1) Left humeral fracture: Code(s): S42.302A - Unspecified fracture of shaft of humerus, left arm, initial encounter for closed fracture Category: Medical Plan Mr. Brock is an 78-year-old right-hand dominant male who presents to the office today for evaluation of a left humeral shaft fracture. Date of injury was 10/29/2024 when he stepped into the shower slipped and fell landing onto the left side. This happened in [place]. He presented to the emergency department there where he was given a Lew shoulder brace and sling and instructed to follow up outpatient for further evaluation and treatment. Of note, the patient has significant bruising because he is on Eliquis. Patient has been taking oxycodone and tramadol as needed for pain. While in the office today, the patient was fit for a thermal molded humerus brace off the shelf. He was then placed back into the sling with the adjustments made to positioning. Patient was educated that he should remain in the sling during the ambulation for safety. He may come out of the sling for frequent breaks to let the arm hang. He is nonweightbearing in the left upper extremity. I informed the patient that if he is not able to drive at this time while in the sling and on pain medications. I have sent a refill of tramadol 50 mg p.o. q.i.d. to the pharmacy. He may call and ask for a refill if necessary. We are going to attempt to treat this fracture conservatively and continue to monitor him with repeat x-rays for healing. He will follow up in 4 weeks with repeat x-rays, sooner if needed. X-rays of the left humerus which were obtained while in the office today and were reviewed by me, Tessa Alexander PA-C, revealed redemonstration of humeral shaft fracture. Orders: Orders XR humerus LT Today S42.302A - Unspecified fracture of shaft of humerus, left arm, initial encounter for closed fracture Coding Level of Care Code New Pt Level 4 (10656) Diagnoses Left humeral fracture S42.302A CPT Codes Fracture Care - Fracture Billing Code: Fracture Billing Code ([id number])
[2024-11-02 09:50] VITALS: BMI 33.0
== END 2024-11-02 10:24 | disposition home or self-care (01) ==
LOC: HO.HOS 09:20
PROVIDERS: PCP Physician Assistant; Visit Provider Physician Assistant
DX: S42.302A Unspecified fracture of shaft of humerus, left arm, initial encounter for closed fracture (principal)
CPT/HCPCS: 99204

== ENCOUNTER → 2024-11-02 09:24 | Outpatient (BNV) | payer MEDICARE, SELFPAY | PROVIDERS: Visit Provider Radiology Diagnostic Radiology | DX: S42.302G Unspecified fracture of shaft of humerus, left arm, subsequent encounter for fracture with delayed healing (principal) | CPT/HCPCS: 73060 ==

== ENCOUNTER 2024-11-09 12:45 | Outpatient (AMB) | payer MEDICARE, SELFPAY ==
--- OUTSIDE RECORDS SUMMARY | 2015-04-12 09:26 | XMS_ITS | Encounter Summary ---
Author Organization [facility] Address [address] [facility] [address] [place] [address] Phone Care Team Providers Care Web Weaver Name Role Phone Jaylen Oshea MD Primary Care Provider + [phone] Encounter Details Date Type Department Care Team (Late st Contact Info) Description 04/12/2015 8:26 AM EST Hospital Encounter [facility], Radiology Department Unknown, Unknown, Social History [...] 4:32 AM EDT Miriam Rivas RN * [place] Suicide Severity Rating Scale (Screener/Recent Self-Report) Question [...] Care Team (Late st Contact Info) Description 11/18/2024 8:30 AM EDT Office Visit [facility] at [address] [address] Rajendra Edward MD [address] [place] [phone] South@ [email or web address] Scheduled Orders Name Type Priority Associated Diagnoses [...] documented as of this encounter Care Teams Web Weaver Relationship Specialty Start Date End Date Jaylen Oshea MD [address] [place] [phone] [email or web address] PCP - General 04/03/15 12/06/20 documented as of this encounter Additional Source Comments The information contained in this document represents components of the legal health record. It is not the complete legal health record.[facility]
--- OUTSIDE RECORDS SUMMARY | 2015-09-13 12:00 | XMS_ITS | Encounter Summary ---
Author Organization [facility] Address [address] [facility] [address] [place] [address] Phone Care Team Providers Care Road Grader Name Role Phone Jaylen Oshea MD Primary Care Provider Rajendra Edward MD Unavailable [phone] Park Leo RN Unavailable [email or web address] Jaylen Oshea MD Unavailable [phone] Encounter Details Date Type Department Care Team (Late st Contact Info) Description 09/13/2015 12:00 PM EDT Hospital Encounter [facility], Radiology Department Unknown, Unknown, Social History Tobacco [...] 4:32 AM EDT Miriam Rivas RN * [place] Suicide Severity Rating Scale (Screener/Recent Self-Report) Question [...] Description 11/18/2024 8:30 AM EDT Office Visit [facility] at [facility] [address] [facility] [address] [place] [address] Rajendra Edward MD 20 [place] [phone] South@ [facility] Scheduled Orders Name Type Priority Associated [...] documented as of this encounter Care Teams Road Grader Relationship Specialty Start Date End Date Jaylen Oshea MD [address] [place] [address] [email or web address] PCP - General 04/03/15 12/06/20 Rajendra Edward MD [address] [place] [phone] South@ [facility] Primary Oncologist Hematology and Oncology 05/08/15 Park Leo, WANDER [address] [place] [phone] [email or web address] Primary Infusion Nurse 05/08/15 Jaylen Oshea MD [address] [place] [address] [email or web address] Referring Physician 06/01/15 documented as of this encounter Additional Source Comments The information contained in this document represents components of the legal health record. It is not the complete legal health record.[facility]
--- OUTSIDE RECORDS SUMMARY | 2015-09-13 13:20 | XMS_ITS | Encounter Summary ---
Author Organization [facility] Address [address] [facility] [address] [place] [address] Phone Care Team Providers Care Patient Care Coordinator Name Role Phone Jaylen Oshea MD Primary Care Provider Rajendra Edward MD Unavailable [phone] Park Leo RN Unavailable [email or web address] Jaylen Oshea MD Unavailable [phone] Encounter Details Date Type Department Care Team (Late st Contact Info) Description 09/13/2015 1:20 PM EDT Hospital Encounter [facility], Radiology Department Unknown, Unknown, Social History [...] 4:32 AM EDT Miriam Rivas RN * [place] Suicide Severity Rating Scale (Screener/Recent Self-Report) Question [...] Description 11/18/2024 8:30 AM EDT Office Visit [facility] at [facility] [address] [facility] [address] [place] [address] Rajendra Edward MD 20 [place] [phone] South@ [email or web address] Scheduled Orders Name Type Priority Associated [...] documented as of this encounter Care Teams Patient Care Coordinator Relationship Specialty Start Date End Date Jaylen Oshea MD [address] [place] [address] [email or web address] PCP - General 04/03/15 12/06/20 Rajendra Edward MD 20 [place] [phone] South@ [email or web address] Primary Oncologist Hematology and Oncology 05/08/15 Park Leo, RN 20 [place] [phone] [email or web address] Primary Infusion Nurse 05/08/15 Jaylen Oshea MD [address] [place] [address] [email or web address] Referring Physician 06/01/15 documented as of this encounter Additional Source Comments The information contained in this document represents components of the legal health record. It is not the complete legal health record.[facility]
--- OUTSIDE RECORDS SUMMARY | 2018-01-13 13:00 | XMS_ITS | Encounter Summary ---
Author Organization [facility] Address [address] [facility] [address] [place] [address] Phone Care Team Providers Care Industrial Gas Fitter Name Role Phone Jaylen Oshea MD Primary Care Provider + [phone] Rajendra Edward MD Unavailable [phone] Park Leo RN Unavailable [email or web address] Jaylen Oshea MD Unavailable [phone] Reason for Referral * MRI/CAT Scan - Closed Specialty Diagnoses / Procedures Referred By Contac t Referred To Contact Radiology Diagnoses Prostate cancer metastatic to multiple sites Procedures CT Abdomen/Pelvis CT CHEST Rajendra Edward MD Phone: tel: fax: mailto:South @[facility] Referral ID Status Reason Start Date Expiration Date Visits Re quested Visits Authorized [id number] Closed 10/02/2017 10/02/2018 1 1 * MRI/CAT Scan - Closed Specialty Diagnoses / Procedures Referred By Contmurray t Referred To Contact Radiology Diagnoses Prostate cancer metastatic to multiple sites Procedures CT Chest CT ABDOMEN/PELVIS Rajendra Edward MD Phone: tel: fax: mailto:South @[facility] Referral ID Status Reason Start Date Expiration Date Visits Re quested Visits Authorized [id number] Closed 10/02/2017 02/13/2018 1 1 Reason for Visit * MRI/CAT Scan - Closed Specialty Diagnoses / Procedures Referred By Jase dow Referred To Contact Radiology Diagnoses Prostate cancer metastatic to multiple sites Procedures CT Chest CT ABDOMEN/PELVIS Rajendra Edward MD Phone: tel: fax: mailto:South @[facility] Referral ID Status Reason Start Date Expiration Date Visits Re quested Visits Authorized [id number] Closed 10/02/2017 02/13/2018 1 1 Encounter Details Date Type Department Care Team (Late st Contact Info) Description 01/13/2018 1:00 PM EDT Hospital Encounter [facility], Radiology Department Rajendra Edward MD [address] [place] [phone] Jessenia [email or web address] Social History Tobacco Use Types Packs/Day [...] 4:32 AM EDT Miriam Rivas RN * [place] Suicide Severity Rating Scale (Screener/Recent Self-Report) Question [...] Description 11/18/2024 8:30 AM EDT Office Visit [facility] at [address] [address] Rajendra Edward MD [address] [place] [phone] [email or web address] Scheduled Orders Name Type Priority Associated [...] documented as of this encounter Care Teams Industrial Gas Fitter Relationship Specialty Start Date End Date Jaylen Oshea MD [address] [place] [address] [email or web address] PCP - General 04/03/15 12/06/20 Rajendra Edward MD [address] [place] [phone] [email or web address] Primary Oncologist Hematology and Oncology 05/08/15 Park Leo, RN [address] [place] [phone] [email or web address] Primary Infusion Nurse 05/08/15 Jaylen Oshea MD [address] [place] [address] [email or web address] Referring Physician 06/01/15 documented as of this encounter Additional Source Comments The information contained in this document represents components of the legal health record. It is not the complete legal health record.[facility]
--- OUTSIDE RECORDS SUMMARY | 2024-05-26 10:30 | XMS_ITS | Encounter Summary ---
Author Name [facility] [place] [facility] [place] Address [address] [place] [address] Care Team Providers Care Resident Medical Officer Name Role Phone DILAN LOPEZ Primary Care Provider Unavail able Insurance Providers: All historical and current Section Date Range: From patient's date of to the date document was created. This section includes the names of all active insurance providers for the patient. Insurance Provider Type of Coverage Plan Name Start of Policy Coverage End of Policy Coverage Group Number Member ID Insurance Provider's Telephone Number Policy Durbin's Name Patient's Relationship to Policy Durbin AN[place] OF [place] MEDIGAP PLAN C PSUED O MEDEX BRONZ E Oct 15, 2008 [id number] [phone] CARIE MAE PATIENT ANTHEM [place]BS OF [place] (BLUECARD) MEDICARE SUPPLEMEN HUMZA MEDEX BRONZ E Feb 14, 2022 [id number] [place] MEDEX BRONZ E Feb 14, 2022 [id number] [phone] CARIE MA[place] SUPPLEMEN [place]UM[place] MEDEX BRONZ E Oct 15, 2008 [id number] CARIE MAE [place] SUPPLEMEN HUMZA MEDEX HEARI NG AND Mar 17, 2019 [id number] CARIE MAE PATIENT MEDICARE (WNR) MEDICARE (M) PART A Oct 15, 2008 PART A [id number] CARIE MAE PATIENT MEDICARE (WNR) MEDICARE (M) PART B Oct 15, 2008 PART B [id number] [phone] CARIE MAE PATIENT MEDICARE (WNR) MEDICARE (M) PART A Oct 15, 2008 PART A [id number] CARIE MAE PATIENT MEDICARE (WNR) MEDICARE (M) PART B Oct 15, 2008 PART B [id number] [phone] CARIE MAE PATIENT MEDICARE (WNR) MEDICARE (M) PART A Oct 15, 2008 PART A [id number] CARIE MAE PATIENT MEDICARE (WNR) MEDICARE (M) PART B Oct 15, 2008 PART B [id number] [phone] CARIE MAE PATIENT MEDICARE (WNR) MEDICARE (M) PART A Oct 15, 2008 PART A [id number] CARIE MAE PATIENT MEDICARE (WNR) MEDICARE (M) PART B Oct 15, 2008 PART B [id number] CARIE MAE PATIENT Selected Encounter This section includes the information on record at [place] for the Encounter. Date/Time Encounter Type Encounter Description Reason Provider Source May 26, 2024 02:30 PM OFFICE O/P EST HI 40 MIN PM&RS PHYSICIAN ICD-10-CM M54.16 Radiculopathy , lumbar region LISA LOPEZ E Encounter Template Text not used by [place] Assessments - Encounter Diagnoses This section includes the primary and secondary diagnoses documented for the Encounter. Date/Time Primary/Secondary Diagnosis Diagnosis Name Provider Source Nov 08, 2024 12:59 PM PRIMARY Radiculopathy, lumbar region LISA LOPEZ [facility] [place] [facility] Plan of Treatment: Future Appointments (+ 6 months) and Future Tests (+/- 45 days) The Plan of Treatment section includes future care activities for the patient from [facility] [place] [facility] This section includes future appointments and future orders which are active, pending or scheduled. Future Appointments This section includes appointments that were scheduled to occur 6 months from the date of the Encounter, up to a maximum of 20 appointments. The data comes from all [place] treatment facilities. Appointment Date/Time Appointment Type Appointme nt Facility Name Jun 03, 2024 10:00 AM AM[place]ULATORY [place]ICINE [place] [facility] [facility] Jun 17, 2024 10:30 AM [place] [facility] [place] [facility] Jul 14, 2024 02:00 PM [facility] [place] [facility] [place] [place] [facility] July 23, 2024 09:00 AM [place] [facility] [place] [facility] July 26, 2024 10:00 AM AMBULATORY [place] [facility] [place] [facility] August 11, 2024 10:00 AM AMBULATORY - [place] MEDICIN [place] [facility] [place] [facility] Aug 16, 2024 02:00 PM AMBULATORY - [place] MEDICIN [place] [facility] [place] [facility] Sep 28, 2024 08:30 AM [place] [facility] [facility] Oct 07, 2024 11:00 AM AMBULATORY - [place] [facility] [place] [facility] Nov 02, 2024 09:45 AM [place] [facility] [place] [facility] Nov 03, 2024 10:00 AM AMBULATORY - [place]IN [place] [facility] [place] [facility] Lab Results: +/- 30 days of the encounter This section includes the Chemistry and Hematology Lab Results on record with [place] for the patient. Radiology Reports and Pathology Reports are provided separately, in subsequent sections. Lab Results This section contains the Chemistry/Hematology Results that were resulted 30 days before or 30 daysafter the date of the Encounter. Date/Time Source Result Type Result - Unit Interpretation Reference Range Specimen Type Comment May 04, 2024 07:49 AM [place] [facility] [place] [facility] LIVER FUNCTION SERUM Specimen Type: SERUM No comment entered. Ordering Provider: YORDY LOPEZ Report Released Date/Time: Nov 11, 2023 11:31 AM Reporting Lab: [address] [id number] Performing Lab: [address] [address] PROTEIN,TOTAL 6.9 g/dL 6.0-8.3 ALBUMIN 3.8 g/dL 3.5-5.0 ALKALINE PHOSPHATASE 44 U/L 40-150 AST 16 U/L 5-34 ALT 16 U/L BILIRUBIN, TOTAL 0.3 mg/dL 0.2-1.2 May 04, 2024 07:49 AM [facility] BASIC METABOLIC PANEL (fasting) SERUM Specime n Type: SERUM No comment entered. Ordering Provider: DILAN LOPEZ Report Released Date/Time: Nov 11, 2023 11:31 AM Reporting Lab: [address] [phone] Performing Lab: [address] [address] UREA NITROGEN 18 mg/dL 7-25 GLUCOSE 100 mg/dL 65-100 SODIUM 137 mmol/L 135-145 POTASSIUM 4.8 mmol/L 3.5-5.0 CHLORIDE 104 mmol/L 100-110 CO2 25 meq/L 20-30 CREATININE, Serum 0.97 mg/dL 0.50-1.40 eGFR(CKD-EPI 2020) 78 mL/min >60 May 04, 2024 07:49 AM [facility] LIPID PANEL FASTING SERUM Specimen Type: SERU M No comment entered. Ordering Provider: DILAN LOPEZ Report Released Date/Time: Nov 11, 2023 11:31 AM Reporting Lab: [address] [address] Performing Lab: [address] [address] CHOLESTEROL 192 mg/dL TRIGLYCERIDE 98 mg/dL 0-150 LDL calculated 130 mg/dL H 0-129 CHOL/HDL 4.6 HDL CHOLESTEROL 42 mg/dL 40-60 May 04, 2024 07:49 AM [place] [facility] PSA SERUM Specimen Type: SERUM No comment entered. Ordering Provider: DILAN LOPEZ Report Released Date/Time: Nov 11, 2023 11:31 AM Reporting Lab: [facility] [place] [facility] [address] [address] Performing Lab: [facility] [address] [address] PSA 4.75 ng/mL H 0.00-4.00 Vital Signs: All taken on the encounter date This section contains inpatient and outpatient Vital Signs collected on the date of the Encounter. Date/Time Temperature Pulse Blood Pressure Respiratory Rate SP02 Pain Height Weight Body Mass Index Source May 26, 2024 03:30 PM 65 140/80 20 98 3 [place] [facility] [facility] May 26, 2024 02:55 PM 74 140/70 20 98 3 [facility] Social History: Smoking Status (Most current) and Tobacco Use (All prior to encounter date) This section includes the most current, and the historical, smoking and tobacco- related health factors from the [place] facility where the Encounter took place. Current Smoking Status This section includes the most current smoking, or tobacco-related health factor, from the [place] facility where the Encounter took place. Date/Time Current Smoking Status Comment Leona weiss Nov 11, 2023 11:00 AM VA-TOBACCO NEVER USED [facility] Tobacco Use History This section includes a history of the smoking, or tobacco-related health factors, that were collected on or before the date of the Encounter. The data comes from the [place] facility where the Encounter took place. Date/Time Smoking Status/Tobacco Use Comment F acility Sep 27, 2022 10:30 AM VA-TOBACCO FORMER USER [place] [facility] [place] [facility] Sep 27, 2022 10:30 AM VA-TOBACCO QUIT 15 YRS OR MORE [place] [facility] [place] [facility] Aug 30, 2021 09:20 AM VA-TOBACCO FORMER USER [place] [facility] [place] [facility] Aug 30, 2021 09:20 AM VA-TOBACCO QUIT 15 YRS OR MORE [place] [facility] [place] [facility] August 07, 2020 09:00 AM VA-TOBACCO FORMER USER [place] [facility] [place] [facility] August 07, 2020 09:00 AM VA-TOBACCO QUIT 15 YRS OR MORE [place] [facility] [place] [facility] Jul 12, 2019 10:05 AM VA-TOBACCO FORMER USER [place] [facility] [place] [facility] Jul 12, 2019 10:05 AM VA-TOBACCO QUIT 15 YRS OR MORE [place] [facility] Jul 03, 2018 10:51 AM VA-TOBACCO FORMER USER [place] [facility] [place] [facility] Jul 03, 2018 10:51 AM VA-TOBACCO QUIT 5 TO < 15 YRS [place] [facility] [place] [facility] Sep 01, 2017 10:25 AM QUIT TOBACCO USE > 7 YEARS AGO [place] [facility] [place] [facility] Aug 29, 2016 09:22 AM QUIT TOBACCO USE > 7 [facility] AGO [facility] August 15, 2015 02:32 PM QUIT TOBACCO USE > 7 YEARS AGO [facility] Advance Directives: All historical and current Section Date Range: From patient's date of to the date document was created. This section includes ALL of a patient's completed or amended [place] Advance and Rescinded Directives. The entries below indicate that a directive exists for the patient, but an actual copy is not included with this document. The data comes from all [place] facilities. Date Advance Directives Provider Source Dec 17, 2018 ADVANCE DIRECTIVE LIZ HER[facility]DEZ [facility] May 30, 2017 ADVANCE DIRECTIVE VICTOR MANUEL [employer]INT[employer] [place] [facility] [facility] Dec 25, 2005 ADVANCE DIRECTIVE IRENA OSEI [facility] Radiology Reports: +/- 30 days of the encounter Radiology Reports For cases when an order for radiology services may have been completed prior to the date of the Encounter, the report list includes the Radiology Reports that were completed up to 30 days before dateof the Encounter. For cases when an order for radiology services may have been completed after the date of the Encounter, the report list also includes the Radiology Reports that were completed up to30 days after date of the Encounter. The data comes from all [place] treatment facilities. Date/Time Radiology Report Provider Source May 26, 2024 03:05 PM FLUOROSCOPIC ARIC NCE OF NEEDLE/SPINE: CARIE MAE [id number] -[id number] M Exm Date: MAY 26, 2024@15:05 Req Phys: LISA LOPEZ THI Pat Loc: [facility] MED REHAB SPGaurang GUDINO MD (Req' Img Loc: [facility]/BUILDING 1 Service: [place] [address] (Case [id number] COMPLETE) FLUOROSCOPIC GUIDANCE OF NEEDLE/S(RAD Detailed) CPT:11050 Reason for Study: transforaminal epidural steroid injection Clinical History: Report Status: Verified Date Reported: MAY 26, 2024 Date Verified: MAY 26, 2024 Harness Builder E-Sig:/ES/JOSE BEJARANO JR Report: Study: Pain injection of the lumbar spine. Findings: Fluoroscopic guidance was provided to Pain Management for interventional pain injection. No dictation provided for this study. Images captured for documentation only. Total fluoroscopy time used was 15.5 seconds. Total cumulative air kerma dose is 10.21 mGy. Impression: Fluoroscopic guidance for interventional pain injection. Primary Diagnostic Code: No immediate attention required Primary Interpreting Staff: JOSE BEJARANO JR, Radiologist (Harness Builder) /JOSE MOORE JR [facility] Encounter Notes: All associated encounter notes This section contains the clinical notes associated to the Encounter. Date/Time Encounter Note(s) Provider Source May 26, 2024 03:05 PM PHYSICAL MEDICINE REHAB NOTE: LOCAL TITLE: PM&R BACK/JOINT PROCEDURE NOTE STANDARD TITLE: PHYSICAL MEDICINE REHAB NOTE DATE OF NOTE: MAY 26, 2024@15:05 ENTRY DATE: MAY 26, 2024@15:05:20 AUTHOR: LISA LOPEZ TH EXP COSIGNER: URGENCY: STATUS: COMPLETED PROCEDURE NOTE: LUMBAR/SACRAL TRANSFORAMINAL EPIDURAL STEROID INJECTION PROCEDURE: 1) Left L3-4 transforaminal epidural steroid injection 2) Fluoroscopic needle guidance REASON FOR PROCEDURE: Lumbar radiculopathy PHYSICIAN: Lisa Lopez DO MEDICATIONS INJECTED: 8mg of Dexamethasone + 1 ml of 1% Lidocaine. Lot #: [id number] Exp: LOCAL ANESTHETIC INJECTED: 1 mL of 1% lidocaine CONTRAST AGENT USED: 1mL of Omnipaque 300 Contrast AGENT WASTED: 1mL of Omnipaque 300 SEDATION MEDICATIONS: None ESTIMATED BLOOD LOSS: None COMPLICATIONS: None HISTORY: Patient presents today for epidural steroid injection, last evaluated on 04/14/2024. He denies any change in symptoms since last visit. Pain continues to be over the left side with intermittent radiation into the left hip and thigh. Pain can be upwards of 9/10 on NRS, with average pain level around 45/10. Patient endorses subjective weakness of the lower extremities as well as paresthesia in the left lower extremity. He denies any recent fever or chills, bowel/bladder incontinence, night sweats, weight loss, vaccinations, or illnesses. He request to proceed with today's injection as planned. EXAM: Vitals in chart. Awake, alert, in no apparent distress. Gets up from a seated position with some difficulties, though not requiring assistance. Some discomfort on lumbar range of motion, with restrictions in all planes tested. Lumbar paraspinal muscle tightness with tenderness palpation in the mid lumbar region on the left. No significant tenderness palpation of bilateral SI joints, iliac crests, greater trochanters, or gluteus musculature. Proximal lower extremity weakness bilaterally, as well as left knee extension weakness that is mild. Sensations intact to light touch in bilateral lower extremities. No ankle clonus bilaterally. Gait is nonantalgic. Lumbar MRI 08/02/23: Central canal stenosis is most prominent at L3-4 (moderate) with mod/severe b/l left foraminal stenosis and severe facet arthropathy. Similar findings at L4-5 on MRI but not as severe. TIME OUT NOTE TIME: MAY 26, 2024@15:05 correctly stated: [X]Full name: CARIE MAE [X]Last 4 of #: [id number] [X]: Oct STAFF NAME: Jennifer Yan LPN LOCATION: Marked site of injection on Left low back. TECHNIQUE: Time-out was taken to identify the correct patient, procedure and side prior to starting the procedure. Lying in a prone position, the patient was prepped and draped in the usual sterile fashion using ChloraPrep and a fenestrated drape. The area to be injected was determined under fluoroscopic guidance. Local anesthetic was given by raising a skin wheal and going down to the hub of a 30-gauge 0.5-inch needle. The 3.5-inch 22-gauge Quincke needle was advanced toward the 6 o'clock position of the pedicle at each above-named nerve root level. The needle was advanced to the final position via a lateral fluoroscopic intermittent image. Omnipaque 300 was injected and showed epidural spread and there was no vascular runoff. After a negative aspiration, the medication was then injected. The procedure was completed without complications and was tolerated well. The patient was monitored after the procedure. The patient (or responsible libertarian) was given post-procedure and discharge instructions to follow at home. The patient was discharged in stable condition. Pre-procedure pain level: 05/24 Post-procedure pain level: 05/24 ASSESSMENT: 78-year-old gentleman with lumbar stenosis and left L3 radiculopathy. PLAN: - Left L3-4 transforaminal epidural steroid injection provided today. - Post-injection follow-up with PM&R nursing in 2-4 weeks. - Discharge instructions provided including the use of ice q2 hrs x 48 hrs prn post injection soreness/pain. - Discussed pacing and rest breaks as needed with activities. - No medication changes. - Contact me with any issues/questions MDM: 40 minutes Medication Reconciliation: Outpatient: Has the patient been taking pain medications as documented in the EMLR? YES: The patient has been taking medications as documented in the EMLR. Essential Medication List for Review used to complete this medication reconciliation. INCLUDED IN THIS LIST: Alphabetical list of active outpatient prescriptions dispensed from this [place] (local) and dispensed from another [place] or [place] facility (remote) as well as inpatient orders (local, pending and active), local clinic medications, locally documented non-VA medications, and local prescriptions that have or been discontinued in the past 90 days. - All changes in medications, including all non-VA/Herbal/OTC medications were entered into CPRS. - If there were any medications the patient should no longer take, they were discontinued. - The patient/caregiver was instructed to update this list, discard old lists, and take this list to the next appointment, whether with a VA or non-VA provider. /juliann/ LISA LOPEZ DO SLICING MACHINE OPERATOR Signed: 11/08/2024 13:00 LISA LOPEZ [place] [facility] [place] [facility] May 26, 2024 03:04 PM DISCHARGE NOTE: LOCAL TITLE: DISCHARGE INSTRUCTIONS/OUTPATIENT STANDARD TITLE: DISCHARGE NOTE DATE OF NOTE: MAY 26, 2024@15:04 ENTRY DATE: MAY 26, 2024@15:04:53 AUTHOR: LISA LOPEZ EXP COSIGNER: URGENCY: STATUS: COMPLETED Your ATTENDING PHYSICIAN for today's injection is: Lisa Lopez DO Reason for Visit: Left L3-4 transforaminal epidural steroid injection - Physical/Activity Limitations: No strenous activity for 24 Hours - Diet: Resume Previous Diet - Medication reconciliation performed. Active Outpatient Medications (including Supplies): Active Outpatient Medications Status = 1) APIXABAN 5MG TAB TAKE ONE TABLET BY MOUTH TWICE DAILY ACTIVE 2) CARBOXYMETHYLCELLULOSE NA 0.5% OPH SOLN INSTILL 1 DROP INTO ACTIVE EACH EYE FOUR TIMES A DAY Indication: FOR DRY EYE 3) DAROLUTAMIDE 300MG TAB TAKE TWO TABLETS BY MOUTH TWICE DAILY ACTIVE 4) HYDROCHLOROTHIAZIDE 12.5MG CAP TAKE ONE CAPSULE BY MOUTH ACTIVE EVERY MORNING Indication: FOR HIGH BLOOD PRESSURE 5) LIDOCAINE 5% OINT APPLY SMALL AMOUNT TOPICALLY FOUR TIMES ACTIVE DAILY NEEDED Indication: FOR LEFT SHOULDER PAIN 6) LIDOCAINE 5% PATCH APPLY 2 PATCHES TOPICALLY ONCE DAILY ACTIVE NEEDED (LEAVE PATCH ON FOR 12 HOURS, THEN REMOVE PATCH) Indication: FOR LOW BACK PAIN 7) LISINOPRIL 20MG TAB TAKE ONE TABLET BY MOUTH ONCE DAILY TO ACTIVE CONTROL BLOOD PRESSURE Indication: FOR HIGH BLOOD PRESSURE 8) LUBRICATING (PF) OPH OINT APPLY THIN RIBBON INTO EACH EYE AT ACTIVE BEDTIME Indication: FOR DRY EYE 9) MIRABEGRON 25MG SA TAB TAKE ONE TABLET BY MOUTH ONCE DAILY ACTIVE Active Non-VA Medications Status = 1) Non-VA CALCIUM 250MG/VITAMIN D 125UNIT TAB ONE BY MOUTH ONCE ACTIVE DAILY 2) Non-VA DENOSUMAB (PROLIA) PA-F INJ,SOLN ACTIVE 3) Non-VA VITAMIN D3 (CHOLECALCIFEROL) TAB BY MOUTH ACTIVE 12 Total Medications No changes to current medications Resume your prior meds at you next regular scheduled dose except Aspirin, Plavix, Warfarin which can be restarted the next day if you are taking these medications. Medication Education 1. Take medications in the exact amount ordered by the clinician. Do not take more or less. 2. Keep each medication in the original and separate containers. 3. Ice every 2 hours as needed for post injection soreness/pain. Keep on for 15 minutes. Do not use heat within the first 48 hours unless specifically instructed by your doctor. 4. Keep a complete list of all your medications and share with all your health care providers, include all over the counter medications, vitamins or supplements. 5. Do not drink alcoholic beverage, drive or operate machinery, cook or make important decisions for twenty-four (24) hours. A responsible adult should remain with you for the next twenty-four hours and you should REST quietly during this time. Recommended plan for follow up: As scheduled Please call TELEPHONE ASSISTANCE if you experience: Fever 101.5, Dizziness or light-headedness, Redness, discharge, warmth to the touch or foul smelling discharge from wound, Shortness of breath, Nausea, vomiting, diarrhea, or no bowel movement for more than 48 hrs, Newly onset headache, Changes in behavior If you feel the medications are making you sick, your symptoms worsen or you are experiencing problems contact: TELEPHONE ASSISTANCE at [phone] or extension [phone] Or [phone] extension [phone] (YANI Rodriguez) or extension [phone] (WANDER Rodriguez) If you are in an emotional crisis, feeling suicidal or having any troubling or self-destructive or violent impulses - please call [phone] (or [phone]); press 1 for Veterans to ask for help 24hours per day. Discharge Instructions printed and given to patient: No. Verbal instructions provided due to COVID-19 restrictions. Patient/Caregiver verbalizes understanding of discharge instructions: Yes Diagnostic studies discussed with patient: N/A I have discussed these instructions with the patient/responsible adult and/or demonstrated appropriate care for the patient post discharge. A copy of these discharge instructions have been printed and given to the patient at the time of discharge. /juliann/ LISA LOPEZ DO SLICING MACHINE OPERATOR Signed: 05/26/2024 15:05 LISA LOPEZ [place] [facility]
--- OUTSIDE RECORDS SUMMARY | 2024-07-23 05:00 | XMS_ITS ---
Author Name [facility] Organization [facility] Address [address] [place] [address] Care Team Providers Care Rotational Moulding Operator Name Role Phone DILAN GARCIA Primary [...] O MEDEX BRONZ E Oct 15, 2008 [id number] CARIE MAE PATIENT ANTHEM BCBS OF [place] (BLUECARD) MEDICARE SUPPLEMEN HUMZA MEDEX BRONZ E Feb 14, 2022 [id number] CARIE MAE PATIENT BCBS OR MEDICARE SUPPLEMEN HUMZA MEDEX BRONZ E Feb 14, 2022 [id number] CARIE MAE PATIENT BCBS OR MEDICARE SUPPLEMEN HUMZA MEDEX BRONZ E Oct 15, 2008 [id number] [phone] CARIE MAE PATIENT BCBS OF OR MEDICARE SUPPLEMEN HUMZA MEDEX HEARI NG AND Mar 17, 2019 [id number] CARIE MAE PATIENT MEDICARE (WNR) MEDICARE (M) PART A Oct 15, 2008 PART A [id number] CARIE MAE PATIENT MEDICARE (WNR) MEDICARE (M) PART B Oct 15, 2008 PART B [id number] [phone] CARIE MAE PATIENT MEDICARE (WNR) MEDICARE (M) PART A Oct 15, 2008 PART A [id number] CARIE MAE PATIENT MEDICARE (WNR) MEDICARE (M) PART B Oct 15, 2008 PART B [id number] CARIE MAE PATIENT MEDICARE (WNR) MEDICARE (M) PART A Oct 15, 2008 PART A [id number] [phone] CARIE MAE PATIENT MEDICARE (WNR) MEDICARE (M) PART B Oct 15, 2008 PART B [id number] CARIE MAE PATIENT MEDICARE (WNR) MEDICARE (M) PART A Oct 15, 2008 PART A [id number] [phone] CARIE MAE PATIENT MEDICARE (WNR) MEDICARE (M) PART B Oct 15, 2008 PART B [id number] CARIE MAE PATIENT Selected Encounter This section includes the information on record at [place] for the Encounter. Date/Time Encounter Type Encounter Description Reason Provider Source July 23, 2024 09:00 AM OFFICE O/P EST MOD 30 MIN PRIMARY CARE/MEDICINE ICD-10-CM K61.1 Rectal abscess [facility] F I[facility] Encounter Template Text not used by [place] Assessments - Encounter Diagnoses This section includes the primary and secondary diagnoses documented for the Encounter. Date/Time Primary/Secondary Diagnosis Diagnosis Name Provider Source July 23, 2024 09:43 AM PRIMARY Rectal abscess [facility] [place] [facility] Plan of Treatment: Future Appointments (+ 6 months) and Future Tests (+/- 45 days) The Plan of Treatment section includes future care activities for the patient from [facility]. This section includes future appointments and future orders which are active, pending or scheduled. Future Appointments This section includes appointments that were scheduled to occur 6 months from the date of the Encounter, up to a maximum of 20 appointments. The data comes from all [place] treatment facilities. Appointment Date/Time Appointment Type Appointme nt Facility Name July 26, 2024 10:00 AM AMBULATORY - REHAB MEDICIN E [facility] [place] [facility] August 11, 2024 10:00 AM AMBULATORY - [facility] [place] [facility] Aug 16, 2024 02:00 PM AMBULATORY - REHAB MEDICIN E [facility] [place] [facility] Sep 28, 2024 08:30 AM AMBULATORY - MEDICINE [facility] [place] [facility] Oct 07, 2024 11:00 AM AMBULATORY - REHAB MEDICIN E [facility] [place] [facility] Nov 02, 2024 09:45 AM AMBULATORY - MEDICINE PR [facility] [place] [facility] Nov 03, 2024 10:00 AM AMBULATORY - REHAB MEDICIN E [facility] [place] [facility] Dec 31, 2024 10:00 AM AMBULATORY - MEDICINE [facility] [place] [facility] Vital Signs: All taken on the encounter date This section contains inpatient and outpatient Vital Signs collected on the date of the Encounter. Date/Time Temperature Pulse Blood Pressure Respiratory Rate SP02 Pain Height Weight Body Mass Index Source July 23, 2024 09:20 AM 98.4 70 130/80 16 97 213 31 [facility] Social History: Smoking Status (Most current) and Tobacco Use (All prior to encounter date) This section includes the most current, and the historical, smoking and tobacco- related health factors from the [place] facility where the Encounter took place. Current Smoking Status This section includes the most current smoking, or tobacco-related health factor, from the [place] facility where the Encounter took place. Date/Time Current Smoking Status Marco Antonio weiss Nov 11, 2023 11:00 AM [facility] Tobacco Use History This section includes a history of the smoking, or tobacco-related health factors, that were collected on or before the date of the Encounter. The data comes from the [place] facility where the Encounter took place. Date/Time Smoking Status/Tobacco Use Comment F acility Sep 27, 2022 10:30 AM VA-TOBACCO FORMER USER [facility] [place] [facility] Sep 27, 2022 10:30 AM VA-TOBACCO QUIT 15 YRS OR MORE [facility] [place] [facility] Aug 30, 2021 09:20 AM VA-TOBACCO FORMER USER [facility] [place] [facility] Aug 30, 2021 09:20 AM VA-TOBACCO QUIT 15 YRS OR MORE [facility] [place] [facility] August 07, 2020 09:00 AM VA-TOBACCO FORMER USER [facility] [place] [facility] August 07, 2020 09:00 AM VA-TOBACCO QUIT 15 YRS OR MORE [facility] [place] [facility] Jul 12, 2019 10:05 AM VA-TOBACCO FORMER USER [facility] [place] [facility] Jul 12, 2019 10:05 AM VA-TOBACCO QUIT 15 YRS OR MORE [facility] [place] [facility] Jul 03, 2018 10:51 AM VA-TOBACCO FORMER USER [facility] [place] [facility] Jul 03, 2018 10:51 AM VA-TOBACCO QUIT 5 TO < 15 YRS [facility] [place] [facility] Sep 01, 2017 10:25 AM QUIT TOBACCO USE > 7 YEARS AGO [facility] [place] [facility] Aug 29, 2016 09:22 AM QUIT TOBACCO USE > 7 YEARS AGO [facility] [place] [facility] August 15, 2015 02:32 PM QUIT TOBACCO USE > 7 YEARS AGO [facility] [place] [facility] Advance Directives: All historical and current Section Date Range: From patient's date of to the date document was created. This section includes ALL of a patient's completed or amended [place] Advance and Rescinded Directives. The entries below indicate that a directive exists for the patient, but an actual copy is not included with this document. The data comes from all [place] facilities. Date Advance Directives Provider Source Dec 17, 2018 ADVANCE DIRECTIVE LIZ HERNANDEZ [facility] [place] [facility] May 30, 2017 ADVANCE DIRECTIVE VICTOR MANUEL PAINTING [facility] [place] [facility] Dec 25, 2005 ADVANCE DIRECTIVE IRENA OSEI [facility] Encounter Notes: All associated encounter notes This section contains the clinical notes associated to the Encounter. Date/Time Encounter Note(s) Provider Source August 01, 2024 10:42 AM ADDENDUM: LOCAL TITLE: Addendum STANDARD TITLE: ADDENDUM DATE OF NOTE: AUGUST 01, 2024@10:42:16 ENTRY DATE: AUGUST 01, 2024@10:42:17 AUTHOR: DILAN GARCIA EXP COSIGNER: URGENCY: STATUS: COMPLETED ED note nad CT report sent to pact rn. Please f/u by phone. /juliann/ Dilan Garcia PA-C STAFF PHYSICIAN SCRE[employer]ER Signed: 08/01/2024 10:42 Receipt Acknowledged By: 08/02/2024 07:59 /es/ YANY ZHOU RN REGISTERED NURSE --- Original Document --- 07/23/24 JIMI NOTE: CC/HPI/A/P: 78 year old MALE here in follow-up for; Lump in groin' onset 'recently' after a 'long time of a small lump. PSH of orchiectomy, bilateral for prostate cancer and TURP as well. He denies any toxic symptoms. Review of systems: Patient reports no changes from [facility], in meds or any admissions. Active problems - Computerized Problem List is the source for the followin. Sleep apnoea 2. Long-term current use of anticoagulant 3. AF- Atrial Fibrillation (SCT 40495456) 4. Cardiac pacemaker in situ [employer] Mobile Product ICM model M301 serial [id number] may,. 5. Hyperlipidemia 6. Open Angle Glaucoma 7. Optic Neuropathy, Ischemic 8. Personal History of Colonic Polyps Neg colonsocpy 08/31/07 Dr Robertson 9. Pain in joint involving shoulder region 10. Gastroesophageal Reflux Disorder EGD 08/31/07 Dr Robertson Negative 11. Obesity 12. Osteoarthrosis, unspecified whether generalized or localized, involving unsp Left knee replacement 04, 13. Benign essential hypertension (SNOMED CT 3192350) 01/20 Stress ECHO negative 04/22 Spect EF 55% 14. Psoriasis 15. Herniated Disc L4-5 16. Prostate cancer (SNOMED CT 470949982) 02; T2anx sulaiman 4/4, psa 13.5 lupron [...] ONE TABLET BY MOUTH ONCE DAILY ACTIVE (S) Active Non-VA Medications Status 1) Non-VA CALCIUM 250MG/VITAMIN D 125UNIT TAB ONE BY MOUTH ONCE ACTIVE DAILY 2) Non-VA VITAMIN D3 (CHOLECALCIFEROL) TAB BY MOUTH ACTIVE 11 Total Medications 98.4 F [36.9 C] (07/23/2024 09:20) 70 (07/23/2024 09:20) 16 (07/23/2024 09:20) 130/80 (07/23/2024 09:20) 3 (05/26/2024 15:30) 69.5 in [176.5 cm] (05/18/2024 07:58) 213 lb [96.62 kg] (07/23/2024 09:20) BMI: 31.1 Neuro: Alert and oriented times three, grossly nonfocal, nasolabial folds intact. : an erythematous area the size of my palm is found in the right groin, with a golf ball sized, dark red mass just caudad to this. I do not think this is a LN, but an abscess. The area about his anus is free of stigmata. A/P: abscess, I sent them to the ED at [facility] by private car. is driving. She held his Eliguis this am as well. Last meal eggMcMuffin 0600. NOthing per os until 'they bring you a tray'. Please call Mrs later and give her the # to report outside ED care. /juliann/ Dilan Garcia PA-C STAFF PHYSICIAN [employer]CRE[employer]ER Signed: 07/23/2024 09:43 Receipt Acknowledged By: 07/26/2024 09:13 /juliann/ YANY ZHOU RN REGISTERED NURSE 07/26/2024 ADDENDUM STATUS: COMPLETED Left message with phone number to call and report ER visit. /camilo ZHOU RN REGISTERED NURSE Signed: 07/26/2024 09:14 DILAN GARCIA [facility] July 23, 2024 09:26 AM PHYSICIAN [employer]ER NOTE: LOCAL TITLE: JIMI NOTE STANDARD TITLE: PHYSICIAN SCREWHEAD [employer] POLISHER NOTE DATE OF NOTE: JULY 23, 2024@09:26 ENTRY DATE: JULY 23, 2024@09:27:01 AUTHOR: DILAN GARCIA EXP COSIGNER: URGENCY: STATUS: COMPLETED JIMI NOTE Has ADDENDA CC/HPI/A/P: 78 year old MALE here in follow-up for; Lump in groin' onset 'recently' after a 'long time of a small lump. PSH of orchiectomy, bilateral for prostate cancer and TURP as well. He denies any toxic symptoms. Review of systems: Patient reports no changes from [facility], in meds or any admissions. Active problems - Computerized Problem List is the source for the followin. Sleep apnoea 2. Long-term current use of anticoagulant 3. AF- Atrial Fibrillation (SCT 50056127) 4. Cardiac pacemaker in situ [employer] Product ICM model M301 serial [id number] 3 may,. 5. Hyperlipidemia 6. Open Angle Glaucoma 7. Optic Neuropathy, Ischemic 8. Personal History of Colonic Polyps Neg colonsocpy 08/31/07 Dr Robertson 9. Pain in joint involving shoulder region 10. Gastroesophageal Reflux Disorder EGD 08/31/07 Dr Robertson Negative 11. Obesity 12. Osteoarthrosis, unspecified whether generalized or localized, involving unsp Left knee replacement 04, 13. Benign essential hypertension (SNOMED CT 2204333) 01/20 Stress ECHO negative 04/22 Spect EF 55% 14. Psoriasis 15. Herniated Disc L4-5 16. Prostate cancer (SNOMED CT 513705003) 02; T2anx sulaiman 4/4, psa 13.5 lupron [...] ONE TABLET BY MOUTH ONCE DAILY ACTIVE (S) Active Non-VA Medications Status 1) Non-VA CALCIUM 250MG/VITAMIN D 125UNIT TAB ONE BY MOUTH ONCE ACTIVE DAILY 2) Non-VA VITAMIN D3 (CHOLECALCIFEROL) TAB BY MOUTH ACTIVE 11 Total Medications 98.4 F [36.9 C] (07/23/2024 09:20) 70 (07/23/2024 09:20) 16 (07/23/2024 09:20) 130/80 (07/23/2024 09:20) 3 (05/26/2024 15:30) 69.5 in [176.5 cm] (05/18/2024 07:58) 213 lb [96.62 kg] (07/23/2024 09:20) BMI: 31.1 Neuro: Alert and oriented times three, grossly nonfocal, nasolabial folds intact. : an erythematous area the size of my palm is found in the right groin, with a golf ball sized, dark red mass just caudad to this. I do not think this is a LN, but an abscess. The area about his anus is free of stigmata. A/P: abscess, I sent them to the ED at [facility] by private car. is driving. She held his Eliguis this am as well. Last meal eggMcMuffin 0600. NOthing per os until 'they bring you a tray'. Please call later and give her the # to report outside ED care. /juliann/ Dilan Garcia PA-C STAFF PHYSICIAN SCRE[employer]ER Signed: 07/23/2024 09:43 Receipt Acknowledged By: 07/26/2024 09:13 /juliann/ YANY ZHOU RN REGISTERED NURSE 07/26/2024 ADDENDUM STATUS: COMPLETED Left message with phone number to call and report ER visit. /camilo ZHOU RN REGISTERED NURSE Signed: 07/26/2024 09:14 08/01/2024 ADDENDUM STATUS: COMPLETED ED note nad CT report sent to pact rn. Please f/u by phone. /camilo Garcia PA-C STAFF PHYSICIAN [employer]CRE[employer]ER Signed: 08/01/2024 10:42 Receipt Acknowledged By: * AWAITING SIGNATURE * YANY ZHOU WILLIAM F [facility] [place] [facility] July 23, 2024 09:05 AM PREVENTIVE MEDICINE NURSING NOTE: LOCAL TITLE: CLINICAL REMINDERS/NURSING STANDARD TITLE: PREVENTIVE MEDICINE NURSING NOTE DATE OF NOTE: JULY 23, 2024@09:05 ENTRY DATE: JULY 23, 2024@09:05:11 AUTHOR: JJ MACIELIGNER: URGENCY: STATUS: COMPLETED Homelessness/Food Insecurity Screen: In the past 2 months, have you been living in stable housing that you own, rent, or stay in as part of a household? Yes - Living in stable housing. Are you worried or concerned that in the next 2 months you may NOT have stable housing that you own, rent, or stay in as part of a household? No - Not worried about housing near future [facility] reports the following: Within the past 12 months, you worried whether your food would run out before you got money to buy more. Never true Within the past 12 months, the food you bought just didn't last and you didn't have money to get more. Never true /es/ JJ MACIEL LPN Signed: 07/23/2024 09:05 VINAY MACIEL [facility]
--- OUTSIDE RECORDS SUMMARY | 2024-07-26 06:00 | XMS_ITS | Encounter Summary ---
Author Name [facility] [place] Organization [facility] [place] Address [address] [place] [address] Care Team Providers Care Assembly Press Operator Name Role Phone DILAN LOPEZ Primary [...] O MEDEX BRONZ E Oct 15, 2008 [id number] [phone] CARIE MAE PATIENT ANTHEM BCBS OF CT (BLUECARD) MEDICARE SUPPLEMEN HUMZA MEDEX BRONZ E Feb 14, 2022 [id number] CARIE MAE [place]UM[place] MEDEX BRONZ E Feb 14, 2022 [id number] [phone] CARIE MAE PATIENT [place] SUPPLEMEN [place]UMZA MEDEX BRONZ E Oct 15, 2008 [id number] CARIE MAE [place] SU[place]UM[place] MEDEX HEARI NG AND Mar 17, 2019 [id number] CARIE MAE PATIENT MEDICARE (WNR) MEDICARE () PART A Oct 15, 2008 PART A [id number] [phone] CARIE MAE PATIENT MEDICARE (WNR) MEDICARE () PART B Oct 15, 2008 PART B [id number] CARIE MAE PATIENT MEDICARE (WNR) MEDICARE () PART A Oct 15, 2008 PART A [id number] CARIE MAE PATIENT MEDICARE (WNR) MEDICARE (M) PART B Oct 15, 2008 PART B [id number] [phone] CARIE MAE PATIENT MEDICARE (WNR) MEDICARE () PART A Oct 15, 2008 PART A [id number] [phone] CARIE MAE PATIENT MEDICARE (WNR) MEDICARE () PART B Oct 15, 2008 PART B [id number] CARIE MAE PATIENT MEDICARE (WNR) MEDICARE () PART A Oct 15, 2008 PART A [id number] CARIE MAE PATIENT MEDICARE (WNR) MEDICARE () PART B Oct 15, 2008 PART B [id number] CARIE MAE PATIENT Selected Encounter This section includes the information on record at [place] for the Encounter. Date/Time Encounter Type Encounter Description Reason Provider Source July 26, 2024 10:00 AM HEARING AID CHECK BINAURAL AUDIOLOGY ICD-10-CM Z46.1 Encounter for fitting and adjustment of hearing aid JULIOCESAR REDMOND Encounter Template Text not used by [place] Assessments - Encounter Diagnoses This section includes the primary and secondary diagnoses documented for the Encounter. Date/Time Primary/Secondary Diagnosis Diagnosis Name Provider Source July 26, 2024 10:49 AM PRIMARY Encounter for fitting and adjustment of hearing aid ROBBY KAY [facility] [place] [facility] July 26, 2024 10:49 AM SECONDARY Sensorineural hearing loss, bilateral ROBBY KAY [facility] Plan of Treatment: Future Appointments (+ 6 months) and Future Tests (+/- 45 days) The Plan of Treatment section includes future care activities for the patient from all [place] [facility] This section includes future appointments and future orders which are active, pending or scheduled. Future Appointments This section includes appointments that were scheduled to occur 6 months from the date of the Encounter, up to a maximum of 20 appointments. The data comes from all [place] treatment facilities. Appointment Date/Time Appointment Type Appointme nt Facility Name August 11, 2024 10:00 AM AMBULATORY - REHAB MEDICIN E [place] [facility] [place] [facility] Aug 16, 2024 02:00 PM AMBULATORY - REHAB MEDICIN E [facility] [place] [facility] Sep 28, 2024 08:30 AM AMBULATORY - MEDICINE [facility] Oct 07, 2024 11:00 AM AMBULATORY - REHAB MEDICIN E [facility] [place] [facility] Nov 02, 2024 09:45 AM AMBULATORY - MEDICINE [facility] [place] [facility] Nov 03, 2024 10:00 AM AMBULATORY - REHAB MEDICIN E [facility] [place] [facility] Dec 31, 2024 10:00 AM AMBULATORY - MEDIC[facility] Social History: Smoking Status (Most current) and Tobacco Use (All prior to encounter date) This section includes the most current, and the historical, smoking and tobacco- related health factors from the [place] facility where the Encounter took place. Current Smoking Status This section includes the most current smoking, or tobacco-related health factor, from the [place] facility where the Encounter took place. Date/Time Current Smoking Status Comment Leona ity Nov 11, 2023 11:00 AM MS-TOBACCO NEVER USED [facility] Tobacco Use History This section includes a history of the smoking, or tobacco-related health factors, that were collected on or before the date of the Encounter. The data comes from the [place] facility where the Encounter took place. Date/Time Smoking Status/Tobacco Use Comment F acility Sep 27, 2022 10:30 AM VA-TOBACCO [facility] Sep 27, 2022 10:30 AM VA-TOBACCO QUIT 15 YRS OR MORE [facility] [place] [facility] Aug 30, 2021 09:20 AM VA-TOBACCO FORMER USER [facility] [place] [facility] Aug 30, 2021 09:20 AM VA-TOBACCO QUIT 15 YRS OR MORE [facility] [place] [facility] August 07, 2020 09:00 AM VA-TOBACCO FORMER USER [facility] [place] [facility] August 07, 2020 09:00 AM VA-TOBACCO QUIT 15 YRS OR MORE [facility] [place] [facility] Jul 12, 2019 10:05 AM VA-TOBACCO FORMER USER [facility] [place] [facility] Jul 12, 2019 10:05 AM VA-TOBACCO QUIT 15 YRS OR MORE [facility] [place] [facility] Jul 03, 2018 10:51 AM VA-TOBACCO FORMER USER [facility] [place] [facility] Jul 03, 2018 10:51 AM VA-TOBACCO QUIT 5 TO < 15 YRS [facility] [place] [facility] Sep 01, 2017 10:25 AM QUIT TOBACCO USE > 7 YEARS AGO [facility] [place] [facility] Aug 29, 2016 09:22 AM QUIT TOBACCO USE > 7 YEARS AGO [facility] [place] [facility] August 15, 2015 02:32 PM QUIT TOBACCO USE > 7 YEARS AGO [facility] [place] [facility] Advance Directives: All historical and current Section Date Range: From patient's date of to the date document was created. This section includes ALL of a patient's completed or amended [place] Advance and Rescinded Directives. The entries below indicate that a directive exists for the patient, but an actual copy is not included with this document. The data comes from all [place] facilities. Date Advance Directives Provider Source Dec 17, 2018 ADVANCE DIRECTIVE LIZ HERNANDEZ [facility] [place] [facility] May 30, 2017 ADVANCE DIRECTIVE VICTOR MANUEL PAINTING [facility] [place] [facility] Dec 25, 2005 ADVANCE DIRECTIVE IRENA OSEI [facility] [employer] [facility] Encounter Notes: All associated encounter notes This section contains the clinical notes associated to the Encounter. Date/Time Encounter Note(s) Provider Source August 03, 2024 11:36 AM ADDENDUM: LOCAL TITLE: Addendum STANDARD TITLE: ADDENDUM DATE OF NOTE: AUGUST 03, 2024@11:36 ENTRY DATE: AUGUST 03, 2024@11:36:16 AUTHOR: DAVID KAY COSIGNER: NADER OMER URGENCY: STATUS: COMPLETED Earmolds received and certified. Alerting the [facility] to contact the to schedule a 30 min HAC with an Assembler Watch Train to assess the fit and parameter adjustments. RTC entered. Earmolds placed in the black cabinet. /es/ DAVID KAY Audiology Health Truck Spotter Signed: 08/03/2024 11:38 /es/ NADER Chanel [facility]-A CHIEF, AUDIOLOGY/BOX TOE STITCHER Cosigned: 08/03/2024 11:40 Receipt Acknowledged By: 08/03/2024 11:44 /es/ JOEL IRENE ADVANCED MACHINE ADJUSTER HELPER ========= --- Original Document --- 07/26/24 AUDIOLOGY [facility]ALTH [facility] PURCHASE AND SALE CLERK: July 26, 2024 History/Background: [place] was seen for a hearing aid follow up, unaccompanied. The presented today requesting maintenance on his back up hearing aids. The brought in several different pairs of hearing aids. He was wearing the right Denisha Evolv and left Denisha Conner. Hearing aids: Denisha EVOLV AI MICRO RICs Serial Numbers: [id number] Battery size: 312 Date Issued: 10/08/2022 AND Hearing aids: Denisha CONNER AI MICRO RICs Serial Numbers: [id number] Battery size: 312 Date Issued: 01/01/2019 AND Hearing Aids: Denisha Z Series I110 Micro RICs Serial Numbers: [id number] Battery Size: 312 Date Issued: 12/30/2014 Hearing aid check: All 4 hearing aids were cleaned and checked. Replaced domes, wax guards, retention lines and batteries. Biologic check was good. The noted he continues to have discomfort with the domes, he noted wearing the hearing aids for 6-7 hours then is unable to wear them for a day or two due to the discomfort. Discussed trialing earmolds and the [place] would like to try them. Otoscopy: Slight cerumen right canal, clear left canal. With the Veterans verbal consent, ear impressions were taken without incident. New hollow JEIMY canal lock earmolds were ordered. Upon receipt the will be contacted the schedule a 30 min HAC with an Assembler Watch Train. Plan: Once the new earmolds arrive in the clinic, the [place] can be contacted the schedule a 30 min HAC with an Assembler Watch Train to assess the fit and parameter adjustments. /juliann/ DAVID KAY Audiology Health Truck Spotter Signed: 07/26/2024 10:56 /MAYNOR Centeno, [facility]-A STAFF SUBSTATION WIREMAN Cosigned: 07/26/2024 11:53 DAVID KAY [facility] [place] [facility] July 26, 2024 07:18 AM AUDIOLOGY NOTE: LOCAL TITLE: AUDIOLOGY HEALTH [facility] PURCHASE AND SALE CLERK STANDARD TITLE: AUDIOLOGY NOTE DATE OF NOTE: JULY 26, 2024@07:18 ENTRY DATE: JULY 26, 2024@07:18:17 AUTHOR: DAVID KAY COSIGNER: JULIOCESAR REDMOND URGENCY: STATUS: COMPLETED AUDIOLOGY [facility] PURCHASE AND SALE CLERK Has ADDENDA July 26, 2024 History/Background: [place] was seen for a hearing aid follow up, unaccompanied. The presented today requesting maintenance on his back up hearing aids. The [place] brought in several different pairs of hearing aids. He was wearing the right Denisha Evolv and left Denisha Conner. Hearing aids: Denisha EVOLV AI MICRO RICs Serial Numbers: [id number] Battery size: 312 Date Issued: 10/08/2022 AND Hearing aids: Denisha CONNER AI MICRO RICs Serial Numbers: [id number] Battery size: 312 Date Issued: 01/01/2019 AND Hearing Aids: Denisha Z Series I110 Micro RICs Serial Numbers: [id number] Battery Size: 312 Date Issued: 12/30/2014 Hearing aid check: All 4 hearing aids were cleaned and checked. Replaced domes, wax guards, retention lines and batteries. Biologic check was good. The noted he continues to have discomfort with the domes, he noted wearing the hearing aids for 6-7 hours then is unable to wear them for a day or two due to the discomfort. Discussed trialing earmolds and the would like to try them. Otoscopy: Slight cerumen right canal, clear left canal. With the Veterans verbal consent, ear impressions were taken without incident. New hollow JEIMY canal lock earmolds were ordered. Upon receipt the will be contacted the schedule a 30 min HAC with an Assembler Watch Train. Plan: Once the new earmolds arrive in the clinic, the [place] can be contacted the schedule a 30 min HAC with an Assembler Watch Train to assess the fit and parameter adjustments. /juliann/ DAVID KAY Audiology Health Truck Spotter Signed: 07/26/2024 10:56 /juliann/ MAYNOR HERBERT, CCC-A STAFF SUBSTATION WIREMAN Cosigned: 07/26/2024 11:53 08/03/2024 ADDENDUM STATUS: COMPLETED Earmolds received and certified. Alerting the [facility] to contact the [place] to schedule a 30 min HAC with an Assembler Watch Train to assess the fit and parameter adjustments. RTC entered. Earmolds placed in the black cabinet. /juliann/ DAVID KAY Audiology Health Truck Spotter Signed: 08/03/2024 11:38 /es/ NADER Chanel, CCC-A CHIEF, AUDIOLOGY/BOX TOE STITCHER Cosigned: 08/03/2024 11:40 Receipt Acknowledged By: 08/03/2024 11:44 /juliann/ JOEL IRENE ADVANCED MACHINE ADJUSTER HELPER DAVID KAY [facility]
--- OUTSIDE RECORDS SUMMARY | 2024-08-23 03:30 | XMS_ITS | Encounter Summary ---
Author Name [facility] [facility] [place] Address [address] [place] [address] Care Team Providers Care Service Car Operator Name Role Phone DILAN LOPEZ Primary [...] O MEDEX BRONZ E Oct 15, 2008 [id number] [phone] CARIE MAE PATIENT ANTHEM [place]BS OF [place] ([place]UECARD) MEDICARE SUPPLEMEN HUMZA MEDEX BRONZ E Feb 14, 2022 [id number] CARIE MAE PATIENT [place]PP[place]UM[place] MEDEX BRONZ E Feb 14, 2022 [id number] CARIE [place] MEDEX BRONZ E Oct 15, 2008 [id number] CARIE MAE PATIENT [place] SUPPLEMEN [place]UM[place] MEDEX HEARI NG AND Mar 17, 2019 [id number] CARIE MAE PATIENT MEDICARE (WNR) MEDICARE (M) PART A Oct 15, 2008 PART A [id number] [phone] CARIE MAE PATIENT MEDICARE (WNR) MEDICARE (M) PART B Oct 15, 2008 PART B [id number] CARIE MAE PATIENT MEDICARE (WNR) MEDICARE (M) PART A Oct 15, 2008 PART A [id number] CARIE MAE PATIENT MEDICARE (WNR) MEDICARE (M) PART B Oct 15, 2008 PART B [id number] CARIE MAE PATIENT MEDICARE (WNR) MEDICARE (M) PART A Oct 15, 2008 PART A [id number] CARIE MAE PATIENT MEDICARE (WNR) MEDICARE (M) PART B Oct 15, 2008 PART B [id number] CARIE MAE PATIENT MEDICARE (WNR) MEDICARE (M) PART A Oct 15, 2008 PART A [id number] CARIE MAE PATIENT MEDICARE (WNR) MEDICARE (M) PART B Oct 15, 2008 PART B [id number] CARIE MAE PATIENT Selected Encounter This section includes the information on record at [place] for the Encounter. Date/Time Encounter Type Encounter Description Reason Provider Source Aug 23, 2024 07:30 AM EXERCISE CLASS HEALTH/WELLBEING [facility] ICD-10-CM Z72.3 Lack of physical exercise RODRIGO FERNANDEZ IHE Encounter Template Text not used by [place] Assessments - Encounter Diagnoses This section includes the primary and secondary diagnoses documented for the Encounter. Date/Time Primary/Secondary Diagnosis Diagnosis Name Provider Source Aug 23, 2024 10:12 AM PRIMARY Lack of physical exercise HAZEL [...] Date/Time Appointment Type Appointme nt Facility Name Sep 28, 2024 08:30 AM [place] [facility] [place] [facility] Oct 07, 2024 11:00 AM [facility] [place] [facility] Nov 02, 2024 09:45 AM [place] [facility] [place] [facility] Nov 03, 2024 10:00 AM AMBULATORY - [facility]IN [facility] [place] [facility] Dec 31, 2024 10:00 AM [place] [facility] [place] [facility] Feb 04, 2025 02:30 PM [place] [place] [facility] Feb 04, 2025 03:30 PM [place] [place] [facility] [place] [facility] Social History: Smoking Status (Most [...] 11, 2023 11:00 AM [facility] Tobacco Use History This section includes a history of the smoking, or tobacco-related health factors, that were collected on or before the date of the Encounter. The data comes from the [place] facility where the Encounter took place. Date/Time Smoking Status/Tobacco Use Comment F acility Sep 27, 2022 10:30 AM VA-TOBACCO FORMER USER [place] [facility] [place] [facility] Sep 27, 2022 10:30 AM VA-TOBACCO QUIT 15 YRS OR MORE [facility] [place] [facility] Aug 30, 2021 09:20 AM VA-TOBACCO FORMER USER [place] [facility] [place] [facility] Aug 30, 2021 09:20 AM VA-TOBACCO QUIT 15 YRS OR MORE [place] [facility] [place] [facility] August 07, 2020 09:00 AM VA-TOBACCO FORMER USER [place] [facility] [place] [facility] August 07, 2020 09:00 AM VA-TOBACCO QUIT 15 YRS OR MORE [place] [facility] [place] [facility] Jul 12, 2019 10:05 AM VA-TOBACCO FORMER USER [place] [facility] [place] [facility] Jul 12, 2019 10:05 AM VA-TOBACCO QUIT 15 YRS OR MORE [place] [facility] [place] [facility] Jul 03, 2018 10:51 AM VA-TOBACCO FORMER USER [place] [facility] [place] [facility] Jul 03, 2018 10:51 AM VA-TOBACCO QUIT 5 TO < 15 YRS [place] [facility] [place] [facility] Sep 01, 2017 10:25 AM QUIT TOBACCO USE > 7 YEARS AGO [place] [facility] [place] [facility] Aug 29, 2016 09:22 AM QUIT TOBACCO USE > 7 YEARS AGO [place] [facility] [place] [facility] August 15, 2015 02:32 PM QUIT TOBACCO USE > 7 YEARS AGO [place] [facility] [place] [facility] Advance Directives: All historical and [...] Source Dec 17, 2018 ADVANCE DIRECTIVE LIZ HERANNDEZ [place] [facility] [place] [facility] May 30, 2017 ADVANCE DIRECTIVE VICTOR MANUEL PAINTING [place] [facility] [place] [facility] Dec 25, 2005 ADVANCE DIRECTIVE IRENA OSEI [facility] Encounter Notes: All associated encounter notes This section contains the clinical notes associated to the Encounter. Date/Time Encounter Note(s) Provider Source Aug 23, 2024 10:05 AM PHYSICAL MEDICINE REHAB NOTE: LOCAL TITLE: GEROFIT-SUPERVISED EXERCISE NOTE STANDARD TITLE: PHYSICAL MEDICINE REHAB NOTE DATE OF NOTE: AUG 23, 2024@10:05 ENTRY DATE: AUG 23, 2024@10:05:48 AUTHOR: SHANNON PARIS EXP COSIGNER: URGENCY: STATUS: COMPLETED participated in the [facility] exercise program today. Activities were focused on progression of their individual exercise prescription (cardiorespiratory fitness training, strength training, etc.) and group based exercise sessions to include, but not limited to: flexibility training, balance training, functional circuit training, Russ Chi for arthritis, and other functional strength and neuromotor exercises. Exercise participation was supervised by [facility] staff and any questions/concerns were addressed with the patient. Modifications were made to programming as appropriate to suit Veterans individual needs, preferences, and whole health concerns. /juliann/ NYLA CARABALLO LICENSE [employer] Signed: 08/23/2024 10:18 SHANNON PARIS [place] [facility]
--- OUTSIDE RECORDS SUMMARY | 2024-09-28 04:30 | XMS_ITS | Encounter Summary ---
Author Name [facility] [place] [facility] [place] [facility] [facility] [place] Address [address] [place] [address] Care Team Providers Care Rn Testing Name Role Phone DILAN GARCIA Primary Care [...] O MEDEX BRONZ E Oct 15, 2008 [id number] CARIE MAE PATIENT ANTHEM BCBS OF [place] (BLUECARD) MEDICARE SUPPLEMEN HUMZA MEDEX BRONZ E Feb 14, 2022 [id number] CARIE [place]UM[place] MEDEX BRONZ E Feb 14, 2022 [id number] [place]UM[place] MEDEX BRONZ E Oct 15, 2008 [id number] CARIE MAE [place] SUPPLEMEN HUMZA MEDEX HEARI NG AND Mar 17, 2019 [id number] CARIE MAE PATIENT MEDICARE (WNR) MEDICARE (M) PART A Oct 15, 2008 PART A [id number] CARIE MAE PATIENT MEDICARE (WNR) MEDICARE (M) PART B Oct 15, 2008 PART B [id number] [phone] CARIE MAE PATIENT MEDICARE (WNR) MEDICARE (M) PART A Oct 15, 2008 PART A [id number] [phone] CARIE MAE PATIENT MEDICARE (WNR) MEDICARE (M) PART B Oct 15, 2008 PART B [id number] [phone] CARIE MAE PATIENT MEDICARE (WNR) MEDICARE (M) PART A Oct 15, 2008 PART A [id number] CARIE MAE PATIENT MEDICARE (WNR) MEDICARE (M) PART B Oct 15, 2008 PART B [id number] [phone] CARIE MAE PATIENT MEDICARE (WNR) MEDICARE () PART A Oct 15, 2008 PART A [id number] CARIE MAE PATIENT MEDICARE (WNR) MEDICARE (M) PART B Oct 15, 2008 PART B [id number] CARIE MAE PATIENT Selected Encounter This section includes the information on record at [place] for the Encounter. Date/Time Encounter Type Encounter Description Reason Provider Source Sep 28, 2024 08:30 AM OFFICE O/P EST LOW 20 MIN PRIMARY CARE/MEDICINE ICD-10-CM M81.0 Age-related osteoporosis w/o current pathological fracture NAVARRO GARCIA E Encounter Template Text not used by [place] Assessments - Encounter Diagnoses This section includes the primary and secondary diagnoses documented for the Encounter. Date/Time Primary/Secondary Diagnosis Diagnosis Name Provider Source Sep 28, 2024 04:35 PM PRIMARY Age-related osteoporosis w/o current pathological fracture NAVARRO GARCIA [place] [facility] [place] [facility] Sep 28, 2024 04:35 PM SECONDARY Encounter for immunization LISETTE MACIEL O[facility]VIV [facility] [place] [facility] Sep 28, 2024 04:35 PM SECONDARY Hypertensive heart disease without heart failure NAVARRO GARCIA [facility] Sep 28, 2024 04:35 PM SECONDARY Unspecified atrial fibrillation [facility] Plan of Treatment: Future Appointments (+ 6 months) and Future Tests (+/- 45 days) The Plan of Treatment section includes future care activities for the patient from all [place] [facility] This section includes future appointments and future orders which are active, pending or scheduled. Future Appointments This section includes appointments that were scheduled to occur 6 months from the date of the Encounter, up to a maximum of 20 appointments. The data comes from all [facility]. Appointment Date/Time Appointment Type Appointme nt Facility Name Oct 07, 2024 11:00 AM AMBULATORY - [facility] Nov 02, 2024 09:45 AM AMBULATORY - MEDICINE [facility] [place] [facility] Nov 03, 2024 10:00 AM AMBULATORY - REHAB MEDICIN E [place] [facility] [place] [facility] Dec 31, 2024 10:00 AM AMBULATORY - MEDICINE [facility] [place] [facility] Feb 04, 2025 02:30 PM AMBULATORY - MEDICINE [facility] [place] [facility] Feb 04, 2025 03:30 PM [facility]ULAT[facility] Active, Pending, and Scheduled Orders This section includes a listing of several types of active, pending, and scheduled orders, including clinic medications orders, diagnostic test orders, procedure orders and consult orders; where the start date of the order is 45 days before the date of the Encounter or 45 days after the date of theEncounter. The data comes from all [facility]. Test Date/Time Test Type Test Details Facility Name Nov 03, 2024 10:23 AM Consult Order [facility] Cons Salesperson [employer] [facility] Lab Results: +/- 30 days of the encounter This section includes the Chemistry and Hematology Lab Results on record with [place] for the patient. Radiology Reports and Pathology Reports are provided separately, in subsequent sections. Lab Results This section contains the Chemistry/Hematology Results that were resulted 30 days before or 30 daysafter the date of the Encounter. Date/Time Source Result Type Result - Unit Interpretation Reference Range Specimen Type Comment Sep 28, 2024 09:11 AM [facility] CALCIUM IONIZED SERUM Specimen Type: SERUM Comment: Test Performed by [facility], [facility], [address] [place] [address] Juan Lynn M.D., Ph.D., Director of Laboratories , CLIA [id number] TEST PERFORMED AT: , Ordering Provider: YORDY GARCIA Report Released Date/Time: Sep 28, 2024 08:47 AM Reporting Lab: [facility] [address] [facility] [address] Performing Lab: [facility] [address] [address] CALCIUM IONIZED 5.1 mg/dL 4.7-5.5 Sep 28, 2024 09:11 AM [facility] PTH INTACT SERUM Specimen Type: SERUM No comment entered. Ordering Provider: DILAN GARCIA Report Released Date/Time: Sep 28, 2024 08:47 AM Reporting Lab: [facility] [place] [facility] [address] [facility] [address] Performing Lab: [facility] [address] [facility] [address] PTH INTACT 50.1 pg/mL 8.7-77.1 Sep 28, 2024 09:11 AM [facility] CALCIUM SERUM Specimen Type: SERUM No comment entered. Ordering Provider: DILAN GARCIA Report Released Date/Time: Sep 28, 2024 08:47 AM Reporting Lab: [facility] [address] [facility] [address] Performing Lab: [facility] [address] [facility] [address] CALCIUM 8.6 mg/dL L 8.8-10 Sep 28, 2024 09:11 AM [facility] MAGNESIUM SERUM Specimen Type: SERUM No comment entered. Ordering Provider: DILAN GARCIA Report Released Date/Time: Sep 28, 2024 08:47 AM Reporting Lab: [facility] [place] [facility] [address] [facility] [address] Performing Lab: [facility] [place] [facility] [address] [facility] [address] MAGNESIUM 2.2 mg/dL 1.6-2.6 Sep 28, 2024 09:11 AM [facility] PO4 SERUM Specimen Type: SERUM No comment entered. Ordering Provider: DILAN GARCIA Report Released Date/Time: Sep 28, 2024 08:47 AM Reporting Lab: [facility]TR[facility] [address] [facility] [address] Performing Lab: [facility] [address] [facility] [address] PO4 3.6 mg/dL 2.5-4.5 Sep 23, 2024 07:32 AM [facility]N [facility] PSA SERUM Specimen Type: SERUM No comment entered. Ordering Provider: DILAN GARCIA Report Released Date/Time: May 18, 2024 08:43 AM Reporting Lab: [facility] [address] [facility] [address] Performing Lab: [facility] [address] [facility] [address] PSA 3.6 ng/mL 0-4 Sep 23, 2024 07:32 AM [facility] VITAMIN D (25-OH) SERUM Specimen Type: SERUM No comment entered. Ordering Provider: DILAN GARCIA Report Released Date/Time: May 18, 2024 08:43 AM Reporting Lab: [facility] [address] [facility] [address] Performing Lab: [facility] [address] [facility] [address] VITAMIN D (25-OH) 35.2 ng/mL 20-50 Sep 23, 2024 07:32 AM [facility] LIVER FUNCTION SERUM Specimen Type: SERUM Comment: notified of corrected report 09/24/24 at 1610 by JED SODIUM reported incorrectly as 133 by [[id number]]. Changed to 138 on Sep 24, 2024@17:49 by [[id number]]. SODIUM flagged incorrectly as L by [[id number]]. Changed to normal on Sep 24, 2024@17:49 by [[id number]]. POTASSIUM reported incorrectly as 4.6 by [[id number]]. Changed to 4.8 on Sep 24, 2024@17:49 by [[id number]]. CHLORIDE reported incorrectly as 102 by [[id number]]. Changed to 105 on Sep 24, 2024@17:49 by [[id number]]. Ordering Provider: DILAN GARCIA Report Released Date/Time: May 18, 2024 08:43 AM Reporting Lab: [facility] [address] [facility] [address] Performing Lab: [address] [address] PROTEIN,TOTAL 7.1 g/dL 6.4-8.3 ALBUMIN 4.1 g/dL 3.2-4.6 ALKALINE PHOSPHATASE 56 U/L 40-150 AST 20 U/L 5-34 ALT 18 U/L 0-55 BILIRUBIN, TOTAL 0.4 mg/dL 0.2-1.2 Sep 23, 2024 07:32 AM [facility] LIPID PANEL FASTING SERUM Specimen Type: SERU M Comment: notified of corrected report 09/24/24 at 1610 by JED SODIUM reported incorrectly as 133 by [[id number]]. Changed to 138 on Sep 24, 2024@17:49 by [[id number]]. SODIUM flagged incorrectly as L by [[id number]]. Changed to normal on Sep 24, 2024@17:49 by [[id number]]. POTASSIUM reported incorrectly as 4.6 by [[id number]]. Changed to 4.8 on Sep 24, 2024@17:49 by [[id number]]. CHLORIDE reported incorrectly as 102 by [[id number]]. Changed to 105 on Sep 24, 2024@17:49 by [[id number]]. Ordering Provider: DILAN GARCIA Report Released Date/Time: May 18, 2024 08:43 AM Reporting Lab: [facility] [address] [facility] [address] Performing Lab: [address] [address] CHOLESTEROL 176 mg/dL TRIGLYCERIDE 113 mg/dL 0-150 LDL calculated 108 mg/dL 0-129 CHOL/HDL 3.9 HDL CHOLESTEROL 45 mg/dL >40 Sep 23, 2024 07:32 AM [facility] BASIC METABOLIC PANEL (fasting) SERUM Specime n Type: SERUM Comment: notified of corrected report 09/24/24 at 1610 by JED SODIUM reported incorrectly as 133 by [[id number]]. Changed to 138 on Sep 24, 2024@17:49 by [[id number]]. SODIUM flagged incorrectly as L by [[id number]]. Changed to normal on Sep 24, 2024@17:49 by [[id number]]. POTASSIUM reported incorrectly as 4.6 by [[id number]]. Changed to 4.8 on Sep 24, 2024@17:49 by [[id number]]. CHLORIDE reported incorrectly as 102 by [[id number]]. Changed to 105 on Sep 24, 2024@17:49 by [[id number]]. Ordering Provider: DILAN GARCIA Report Released Date/Time: May 18, 2024 08:43 AM Reporting Lab: [address] [address] Performing Lab: [address] [address] UREA NITROGEN 16 mg/dL 8-26 GLUCOSE 95 mg/dL 65-100 SODIUM 138 mmol/L L 136-145 POTASSIUM 4.8 mmol/L 3.5-5.1 CHLORIDE 105 mmol/L 98-107 CO2 27 meq/L 23-31 CALCIUM 8.5 mg/dL L 8.8-10 CREATININE, Serum 0.98 mg/dL 0.72-1.25 eGFR(CKD-EPI 2020) 77 mL/min >60 Vital Signs: All taken on the encounter date This section contains inpatient and outpatient Vital Signs collected on the date of the Encounter. Date/Time Temperature Pulse Blood Pressure Respiratory Rate SP02 Pain Height Weight Body Mass Index Source Sep 28, 2024 08:19 AM 98.2 F 69 /min 120/70 mm[Hg] 16 /min 99 % 0 211 lb 31 [facility] Immunizations: All administered on the encounter date This section contains immunizations associated to the Encounter. Immunization Series Date Issued Administered By Site Reaction Lot Number CVX Code Drug Pearl Maker Comment(s) Source COVID-19 (MODERNA), MRNA, LNP-S, PF, 50 MCG/0.5 ML (AGES 12+ YEARS) 1 Sep 28, 2024 LISETTE MACIEL E RIGHT DELTO ID [id number] [employer] ADMINISTERE D AT [place], [facility] [employer] [facility] Social History: Smoking Status (Most current) [...] 11, 2023 11:00 AM VA-TOBACCO NEVER USED [place] cVidya [employer] MedicalOptoro [facility] Tobacco Use History This section includes a history of the smoking, or tobacco-related health factors, that were collected on or before the date of the Encounter. The data comes from the [place] facility where the Encounter took place. Date/Time Smoking Status/Tobacco Use Comment F acility Sep 27, 2022 10:30 AM VA-TOBACCO FORMER USER [place] cVidya [facility] [place] [facility] Sep 27, 2022 10:30 AM VA-TOBACCO QUIT 15 YRS OR MORE [place] [facility] [place] [facility] Aug 30, 2021 09:20 AM VA-TOBACCO FORMER USER [place] [facility] [place] [facility] Aug 30, 2021 09:20 AM VA-TOBACCO QUIT 15 YRS OR MORE [place] [facility] [place] [facility] August 07, 2020 09:00 AM VA-TOBACCO FORMER USER [place] [facility] [place] [facility] August 07, 2020 09:00 AM VA-TOBACCO QUIT 15 YRS OR MORE [place] [facility] [place] [facility] Jul 12, 2019 10:05 AM VA-TOBACCO FORMER USER [place] [facility] [place] [facility] Jul 12, 2019 10:05 AM VA-TOBACCO QUIT 15 YRS OR MORE [place] [facility] [place] [facility] Jul 03, 2018 10:51 AM VA-TOBACCO FORMER USER [place] [facility] [place] [facility] Jul 03, 2018 10:51 AM VA-TOBACCO QUIT 5 TO < 15 YRS [place] [facility] [place] [facility] Sep 01, 2017 10:25 AM QUIT TOBACCO USE > 7 YEARS AGO [place] [facility] [place] [facility] Aug 29, 2016 09:22 AM QUIT TOBACCO USE > 7 YEARS AGO [place] [facility] [place] [facility] August 15, 2015 02:32 PM QUIT TOBACCO USE > 7 YEARS AGO [place] [facility] [place] [facility] Advance Directives: All historical and current [...] Dec 17, 2018 ADVANCE DIRECTIVE LIZ HERNANDEZ [place] [facility] [place] [facility] May 30, 2017 ADVANCE DIRECTIVE VICTOR MANUEL PAINTING [place] [facility] [place] [facility] Dec 25, 2005 ADVANCE DIRECTIVE IRENA OSEI [facility] Encounter Notes: All associated encounter notes This section contains the clinical notes associated to the Encounter. Date/Time Encounter Note(s) Provider Source Sep 28, 2024 08:44 AM PHYSICIAN VIDEO GAMES STORYWRITER NOTE: LOCAL TITLE: PA NOTE STANDARD TITLE: PHYSICIAN VIDEO GAMES STORYWRITER NOTE DATE OF NOTE: SEP 28, 2024@08:44 ENTRY DATE: SEP 28, 2024@08:44:44 AUTHOR: DILAN GARCIA EXP COSIGNER: URGENCY: STATUS: COMPLETED CC/HPI/A/P: 78 year old MALE here in follow-up for; right inguinal mass, he brings me an I+D note from July, adding that he had definitive surgery last week. It was just a sebaceous cyst thankfully. PRCA< n f/u with uro. oncology. hypocalcemia, not taking otc pablito/d and separate vitamin D as listed for nonva meds. To lab today, theyw ill buy Pablito and D otc. recheck at next as well. Review of systems: Patient reports no changes from [facility], in meds or any admissions. Active problems - Computerized Problem List is the source for the followin. Osteoporosis 2. Sleep apnoea 3. Long-term current use of anticoagulant 4. AF- Atrial Fibrillation (SCT 03337043) 5. Cardiac pacemaker in situ [employer] Product ICM model M301 serial [id number] may,. 6. Hyperlipidemia 7. Open Angle Glaucoma 8. Optic Neuropathy, Ischemic 9. Personal History of Colonic Polyps Neg colonsocpy 08/31/07 Dr Robertson 10. Pain in joint involving shoulder region 11. Gastroesophageal Reflux Disorder EGD 08/31/07 Dr Robertson Negative 12. Obesity 13. Osteoarthrosis, unspecified whether generalized or localized, involving unsp Left knee replacement 04, 14. Benign essential hypertension (SNOMED CT 3652550) 01/20 Stress ECHO negative 04/22 Spect EF 55% 15. Psoriasis 16. Herniated Disc L4-5 17. Prostate cancer (SNOMED CT 579419303) 02; T2anx sulaiman 4/4, psa 13.5 lupron , seed brachytherapy implant 09/15, xrt ext beam08/16 metastatic prostate ca, on ADT/Zytiga s/p bilaterally orchiectomy on 09/28/[address] Santos SERVICE CONNECTED % - NONE FOUND VA and Non VA meds were reconciled with the patient who left with a corrected copy. See medication page for details. Active and Recently Outpatient Medications (excluding Supplies): Active Outpatient Medications Status 1) CARBOXYMETHYLCELLULOSE NA 0.5% OPH SOLN INSTILL 1 DROP INTO ACTIVE EACH EYE FOUR TIMES A DAY Indication: FOR DRY EYE 2) DAROLUTAMIDE 300MG TAB TAKE TWO TABLETS [...] PRESSURE Indication: FOR HIGH BLOOD PRESSURE 7) LUBRICATING (PF) OPH OINT APPLY THIN RIBBON INTO EACH EYE AT ACTIVE BEDTIME Indication: FOR DRY EYE 8) MIRABEGRON 25MG SA TAB TAKE ONE TABLET BY MOUTH ONCE DAILY ACTIVE Active Non-VA Medications Status 1) Non-VA CALCIUM 250MG/VITAMIN D 125UNIT TAB ONE BY MOUTH ONCE ACTIVE DAILY 2) Non-VA VITAMIN D3 (CHOLECALCIFEROL) TAB BY MOUTH ACTIVE 10 Total Medications 98.2 F [36.8 C] (09/28/2024 08:19) 69 (09/28/2024 08:19) 16 (09/28/2024 08:19) 120/70 (09/28/2024 08:19) 0 (09/28/2024 08:19) 69.5 in [176.5 cm] (05/18/2024 07:58) 211 lb [95.71 kg] (09/28/2024 08:19) BMI: 30.8 Neuro: Alert and oriented times three, grossly nonfocal, nasolabial folds intact. Thyroid nonpalpable. Cor: Regular rate and rhythm, normal s1 and 2 without Murmur, carotid bruits or pedal edema. Lungs; Clear to auscultation bilaterally. Recent labs reviewed with patient today: /juliann/ Dilan Garcia PA-C STAFF PHYSICIAN VIDEO GAMES STORYWRITER Signed: 09/28/2024 16:35 DILAN GARCIA [place] [facility] Sep 28, 2024 08:21 AM PREVENTIVE MEDICINE NURSING NOTE: LOCAL TITLE: CLINICAL REMINDERS/NURSING STANDARD TITLE: PREVENTIVE MEDICINE NURSING NOTE DATE OF NOTE: SEP 28, 2024@08:21 ENTRY DATE: SEP 28, 2024@08:21:28 AUTHOR: JJ MACIEL EXP COSIGNER: URGENCY: STATUS: COMPLETED CLINICAL REMINDERS/NURSING Has ADDENDA Falls & Incontinence Screen: Falls Screen: 1. One fall with no injury. Incontinence Screen No incontinence. /juliann/ JJ MACIEL LPN Signed: 09/28/2024 08:22 09/28/2024 ADDENDUM STATUS: COMPLETED COVID-19 Immunization: Moderna Monovalent (Spikevax) Administered: COVID-19 (MODERNA), MRNA, LNP-S, PF, 50 MCG/0.5 ML (AGES 12+ YEARS) Date Administered: Sep 28, 2024 08:30 Series: Series 1 Pearl Maker: MODERNA [employer] Lot: [id number] Exp Date: Nov 21, 2024 ND: [id number] Admin Route/Site: INTRAMUSCULAR/RIGHT DELTOID Dosage: 0.3mL Vaccine Information Statement(s): COVID-19 MRNA VACCINE (12+ YRS) VIS Apr 16, 2024 ([place]) Order By: Policy Administered By: Jj Maciel The COVID-19 Vaccine Information Statement (VIS) was reviewed with the patient/surrogate decision maker which lists the benefits and risks of not receiving the COVID-19 vaccine. The patient/surrogate decision maker denied any prior severe reaction to this vaccine or its components or a severe allergic reaction such as anaphylaxis to any vaccine or any injectable therapy. The patient/surrogate decision maker gave verbal consent to receive the vaccine. /juliann/ JJ MACIEL LPN Signed: 09/28/2024 08:36 [facility] MACI[facility]
--- OUTSIDE RECORDS SUMMARY | 2024-10-08 06:00 | XMS_ITS | Encounter Summary ---
Author Name [facility] Address [address] [place] [address] Care Team Providers Care Applications Analyst Name Role Phone DILAN LOPEZ Primary Care [...] O MEDEX BRONZ E Oct 15, 2008 [id number] [phone] CARIE MAE PATIENT ANTHEM BCBS OF [place] (BLUECARD) MEDICARE SUPPLEMEN HUMZA MEDEX BRONZ E Feb 14, 2022 [id number] CARIE MAE PATIENT [place] SUPPLE[place] HUMZA MEDEX BRONZ E Feb 14, 2022 [id number] CARIE MAE [place] SU[place] HUMZA MEDEX BRONZ E Oct 15, 2008 [id number] CARIE MAE PATIENT [place] SUPPLEMEN HUMZA MEDEX HEARI NG AND Mar 17, 2019 [id number] [phone] CARIE MAE PATIENT MEDICARE (WNR) MEDICARE (M) PART A Oct 15, 2008 PART A [id number] CARIE MAE PATIENT MEDICARE (WNR) MEDICARE (M) PART B Oct 15, 2008 PART B [id number] [phone] CARIE MAE PATIENT MEDICARE (WNR) MEDICARE (M) PART A Oct 15, 2008 PART A [id number] [phone] CARIE MAE PATIENT MEDICARE (WNR) MEDICARE (M) PART B Oct 15, 2008 PART B [id number] CARIE MAE PATIENT MEDICARE (WNR) MEDICARE (M) PART A Oct 15, 2008 PART A [id number] CARIE MAE PATIENT MEDICARE (WNR) MEDICARE (M) PART B Oct 15, 2008 PART B [id number] CARIE MAE PATIENT MEDICARE (WNR) MEDICARE (M) PART A Oct 15, 2008 PART A [id number] [phone] CARIE MAE PATIENT MEDICARE (WNR) MEDICARE (M) PART B Oct 15, 2008 PART B [id number] CARIE MAE PATIENT Selected Encounter This section includes the information on record at [place] for the Encounter. Date/Time Encounter Type Encounter Description Reason Provider Source Oct 08, 2024 10:00 AM EXERCISE CLASS HEALTH/WELLBEING [facility] ICD-10-CM Z72.3 Lack of physical exercise RODRIGO FERNANDEZ E Encounter Template Text not used by [place] Assessments - Encounter Diagnoses This section includes the primary and secondary diagnoses documented for the Encounter. Date/Time Primary/Secondary Diagnosis Diagnosis Name Provider Source Oct 08, 2024 10:28 AM PRIMARY Lack of physical exercise RODRIGO FERNANDEZ [facility] Plan of Treatment: Future Appointments (+ 6 months) and Future Tests (+/- 45 days) The Plan of Treatment section includes future care activities for the patient from all [place] treatmentfacilities. This section includes future appointments and future orders which are active, pending or scheduled. Future Appointments This section includes appointments that were scheduled to occur 6 months from the date of the Encounter, up to a maximum of 20 appointments. The data comes from all [place] treatment facilities. Appointment Date/Time Appointment Type Appointme nt Facility Name Nov 03, 2024 10:00 AM AMBULATORY - REH[facility] MEDICIN E [facility] Nov 17, 2024 01:00 PM AMBULATORY - REHAB MEDICIN E [facility] [place] Dec 31, 2024 10:00 AM AMBULATORY - MEDICINE [facility] [place] [facility] Feb 04, 2025 02:30 PM AMBULATORY - MEDICINE [place] [facility] [place] [facility] Feb 04, 2025 03:30 PM [facility] Lab Results: +/- 30 days of the encounter This section includes the Chemistry and Hematology Lab Results on record with [place] for the patient. Radiology Reports and Pathology Reports are provided separately, in subsequent sections. Lab Results This section contains the Chemistry/Hematology Results that were resulted 30 days before or 30 daysafter the date of the Encounter. Date/Time Source Result Type Result - Unit Interpretation Reference Range Specimen Type Comment Sep 28, 2024 09:11 AM [facility] CALCIUM IONIZED SERUM Specimen Type: SERUM Comment: [facility], [address] [place] [address] Juan Lynn M.D., Ph.D., Director of Laboratories , [facility] [id number] TEST PERFORMED AT: , Ordering Provider: YRODY LOPEZ Report Released Date/Time: Sep 28, 2024 08:47 AM Reporting Lab: [facility] [address] [facility] [address] Performing Lab: [facility] [address] [address] CALCIUM IONIZED 5.1 mg/dL 4.7-5.5 Sep 28, 2024 09:11 AM [facility] PTH INTACT SERUM Specimen Type: SERUM No comment entered. Ordering Provider: DILAN LOPEZ Report Released Date/Time: Sep 28, 2024 08:47 AM Reporting Lab: [facility] [address] [facility] [address] Performing Lab: [facility] [address] [facility] [address] PTH INTACT 50.1 pg/mL 8.7-77.1 Sep 28, 2024 09:11 AM [facility] CALCIUM SERUM Specimen Type: SERUM No comment entered. Ordering Provider: DILAN LOPEZ Report Released Date/Time: Sep 28, 2024 08:47 AM Reporting Lab: [facility] [address] [facility] [address] Performing Lab: [facility] [address] CALCIUM 8.6 mg/dL L 8.8-10 Sep 28, 2024 09:11 AM [facility] MAGNESIUM SERUM Specimen Type: SERUM No comment entered. Ordering Provider: DILAN LOPEZ Report Released Date/Time: Sep 28, 2024 08:47 AM Reporting Lab: [facility] [address] [facility] [address] Performing Lab: [facility] [address] [facility] [address] MAGNESIUM 2.2 mg/dL 1.6-2.6 Sep 28, 2024 09:11 AM [facility] PO4 SERUM Specimen Type: SERUM No comment entered. Ordering Provider: DILAN LOPEZ Report Released Date/Time: Sep 28, 2024 08:47 AM Reporting Lab: [facility] [address] [facility] [address] Performing Lab: [facility] [address] [address] PO4 3.6 mg/dL 2.5-4.5 Sep 23, 2024 07:32 AM [facility] VITAMIN D (25-OH) SERUM Specimen Type: SERUM No comment entered. Ordering Provider: DILAN LOPEZ Report Released Date/Time: May 18, 2024 08:43 AM Reporting Lab: [facility] [address] [facility] [address] Performing Lab: [address] [address] VITAMIN D (25-OH) 35.2 ng/mL 20-50 Sep 23, 2024 07:32 AM [facility] PSA SERUM Specimen Type: SERUM No comment entered. Ordering Provider: DILAN LOPEZ Report Released Date/Time: May 18, 2024 08:43 AM Reporting Lab: [address] [address] Performing Lab: [address] [address] PSA 3.6 ng/mL 0-4 Sep 23, 2024 07:32 AM [facility] LIVER FUNCTION SERUM Specimen Type: SERU M Comment: notified of corrected report 09/24/24 at 1610 by JED SODIUM reported incorrectly as 133 by [[id number]]. Changed to 138 on Sep 24, 2024@17:49 by [[id number]]. SODIUM flagged incorrectly as L by [[id number]]. Changed to normal on Sep 24, 2024@17:49 by [[id number]]. POTASSIUM reported incorrectly as 4.6 by [[id number]]. Changed to 4.8 on Sep 24, 2024@17:49 by [[id number]]. CHLORIDE reported incorrectly as 102 by [[id number]]. Changed to 105 on Sep 24, 2024@17:49 by [[id number]]. Ordering Provider: DILAN LOPEZ Report Released Date/Time: May 18, 2024 08:43 AM Reporting Lab: [address] [address] Performing Lab: [facility] [address] [facility] [address] PROTEIN,TOTAL 7.1 g/dL 6.4-8.3 ALBUMIN 4.1 g/dL 3.2-4.6 ALKALINE PHOSPHATASE 56 U/L 40-150 AST 20 U/L 5-34 ALT 18 U/L 0-55 BILIRUBIN, TOTAL 0.4 mg/dL 0.2-1.2 Sep 23, 2024 07:32 AM [facility] LIPID PANEL FASTING SERUM Specimen Type: SERU M Comment: notified of corrected report 09/24/24 at 1610 by JED SODIUM reported incorrectly as 133 by [[id number]]. Changed to 138 on Sep 24, 2024@17:49 by [[id number]]. SODIUM flagged incorrectly as L by [[id number]]. Changed to normal on Sep 24, 2024@17:49 by [[id number]]. POTASSIUM reported incorrectly as 4.6 by [[id number]]. Changed to 4.8 on Sep 24, 2024@17:49 by [[id number]]. CHLORIDE reported incorrectly as 102 by [[id number]]. Changed to 105 on Sep 24, 2024@17:49 by [[id number]]. Ordering Provider: DILAN LOPEZ Report Released Date/Time: May 18, 2024 08:43 AM Reporting Lab: [address] [address] Performing Lab: [address] [address] CHOLESTEROL 176 mg/dL TRIGLYCERIDE 113 mg/dL 0-150 LDL calculated 108 mg/dL 0-129 CHOL/HDL 3.9 HDL CHOLESTEROL 45 mg/dL >40 Sep 23, 2024 07:32 AM [facility] BASIC METABOLIC PANEL (fasting) SERUM Specime n Type: SERUM Comment: notified of corrected report 09/24/24 at 1610 by JED SODIUM reported incorrectly as 133 by [[id number]]. Changed to 138 on Sep 24, 2024@17:49 by [[id number]]. SODIUM flagged incorrectly as L by [[id number]]. Changed to normal on Sep 24, 2024@17:49 by [[id number]]. POTASSIUM reported incorrectly as 4.6 by [[id number]]. Changed to 4.8 on Sep 24, 2024@17:49 by [[id number]]. CHLORIDE reported incorrectly as 102 by [[id number]]. Changed to 105 on Sep 24, 2024@17:49 by [[id number]]. Ordering Provider: DILAN LOPEZ Report Released Date/Time: May 18, 2024 08:43 AM Reporting Lab: [facility] [address] [facility] [address] Performing Lab: [address] [address] UREA NITROGEN 16 mg/dL 8-26 GLUCOSE 95 mg/dL 65-100 SODIUM 138 mmol/L L 136-145 POTASSIUM 4.8 mmol/L 3.5-5.1 CHLORIDE 105 mmol/L 98-107 CO2 27 meq/L 23-31 CALCIUM 8.5 mg/dL L 8.8-10 CREATININE, Serum 0.98 mg/dL 0.72-1.25 eGFR(CKD-EPI 2020) 77 mL/min >60 Social History: Smoking Status (Most current) and Tobacco Use (All prior to encounter date) This section includes the most current, and the historical, smoking and tobacco- related health factors from the [place] facility where the Encounter took place. Current Smoking Status This section includes the most current smoking, or tobacco-related health factor, from the [place] facility where the Encounter took place. Date/Time Current Smoking Status Comment Facil ity Nov 11, 2023 11:00 AM MI-TOBACCO NEVER USED [facility] Tobacco Use History This section includes a history of the smoking, or tobacco-related health factors, that were collected on or before the date of the Encounter. The data comes from the [place] facility where the Encounter took place. Date/Time Smoking Status/Tobacco Use Comment F acility Sep 27, 2022 10:30 AM VA-TOBACCO FORMER USER [facility] Sep 27, 2022 10:30 AM VA-TOBACCO QUIT 15 YRS OR MORE [facility] Aug 30, 2021 09:20 AM VA-TOBACCO FORMER USER [facility] Aug 30, 2021 09:20 AM VA-TOBACCO QUIT 15 YRS OR MORE [facility] August 07, 2020 09:00 AM VA-TOBACCO FORMER USER [facility] August 07, 2020 09:00 AM VA-TOBACCO QUIT 15 YRS OR MORE [facility] Jul 12, 2019 10:05 AM VA-TOBACCO FORMER USER [facility] Jul 12, 2019 10:05 AM VA-TOBACCO QUIT 15 YRS OR MORE [facility] Jul 03, 2018 10:51 AM VA-TOBACCO FORMER USER [facility] Jul 03, 2018 10:51 AM VA-TOBACCO QUIT 5 TO < 15 YRS [facility] Sep 01, 2017 10:25 AM QUIT TOBACCO USE > 7 YEARS AGO [facility] Aug 29, 2016 09:22 AM QUIT TOBACCO USE > 7 YEARS AGO [facility] August 15, 2015 02:32 PM QUIT TOBACCO USE > 7 YEARS AGO [facility] Advance Directives: All historical and current Section Date Range: From patient's date of to the date document was created. This section includes ALL of a patient's completed or amended VA Advance and Rescinded Directives. The entries below indicate that a directive exists for the patient, but an actual copy is not included with this document. The data comes from all [place] facilities. Date Advance Directives Provider Source Dec 17, 2018 ADVANCE DIRECTIVE LIZ HERNANDEZ [facility] May 30, 2017 ADVANCE DIRECTIVE VICTOR MANUEL PAINTING [facility] Dec 25, 2005 ADVANCE DIRECTIVE IRENA OSEI [facility] Encounter Notes: All associated encounter notes This section contains the clinical notes associated to the Encounter. Date/Time Encounter Note(s) Provider Source Oct 08, 2024 10:15 AM PHYSICAL MEDICINE REHAB NOTE: LOCAL TITLE: GEROFIT-SUPERVISED EXERCISE NOTE STANDARD TITLE: PHYSICAL MEDICINE REHAB NOTE DATE OF NOTE: OCT 08, 2024@10:15 ENTRY DATE: OCT 08, 2024@10:15:25 AUTHOR: RODRIGO FERNANDEZ EXP COSIGNER: URGENCY: STATUS: COMPLETED participated in the [facility] exercise program today. Activities were focused on progression of their individual exercise prescription (cardiorespiratory fitness training, strength training, etc.) and group based exercise sessions to include, but not limited to: flexibility training, balance training, functional circuit training, Russ Chi for arthritis, and other functional strength and neuromotor exercises. [facility] and any questions/concerns were addressed with the patient. Modifications were made to programming as appropriate to suit Veterans individual needs, preferences, and whole health concerns. /es/ Rodrigo Fernandez PT,DPT PHYSICAL THERAPIST Signed: 10/08/2024 10:31 RODRIGO FERNANDEZ [facility]
--- OUTSIDE RECORDS SUMMARY | 2024-11-03 06:00 | XMS_ITS | Encounter Summary ---
Author Name [facility] [place] [facility] [place] Address [address] [place] [address] Care Team Providers Care Research Analyst Name Role Phone DILAN LOPEZ Primary [...] O MEDEX BRONZ E Oct 15, 2008 [id number] CARIE MAE PATIENT ANTHEM BCBS OF CT (BLUECARD) MEDICARE SUPPLEMEN HUMZA MEDEX BRONZ E Feb 14, 2022 [id number] CARIE MAE PATIENT BCBS CT MEDICARE SUPPLEMEN HUMZA MEDEX BRONZ E Feb 14, 2022 [id number] [phone] CARIE MAE PATIENT BCBS CT MEDICARE SUPPLEMEN HUMZA MEDEX BRONZ E Oct 15, 2008 [id number] [phone] CARIE MAE PATIENT BCBS OF CT MEDICARE SUPPLEMEN HUMZA MEDEX HEARI NG AND Mar 17, 2019 [id number] CARIE MAE PATIENT MEDICARE (WNR) MEDICARE (M) PART A Oct 15, 2008 PART A [id number] CARIE MAE PATIENT MEDICARE (WNR) MEDICARE (M) PART B Oct 15, 2008 PART B [id number] [phone] CARIE MAE PATIENT MEDICARE (WNR) MEDICARE (M) PART A Oct 15, 2008 PART A [id number] CARIE MAE PATIENT MEDICARE (WNR) MEDICARE (M) PART B Oct 15, 2008 PART B [id number] [phone] CARIE MAE PATIENT MEDICARE (WNR) MEDICARE (M) PART A Oct 15, 2008 PART A [id number] CARIE MAE PATIENT MEDICARE (WNR) MEDICARE (M) PART B Oct 15, 2008 PART B [id number] CARIE AME PATIENT MEDICARE (WNR) MEDICARE (M) PART A Oct 15, 2008 PART A [id number] CARIE MAE PATIENT MEDICARE (WNR) MEDICARE () PART B Oct 15, 2008 PART B [id number] CARIE MAE PATIENT Selected Encounter This section includes the information on record at [place] for the Encounter. Date/Time Encounter Type Encounter Description Reason Provider Source Nov 03, 2024 10:00 AM HEARING AID REPAIR/MODIFYING AUDIOLOGY ICD-10-CM Z46.1 Encounter for fitting and adjustment of hearing aid NADER OMER [facility] Encounter Template Text not used by [place] Assessments - Encounter Diagnoses This section includes the primary and secondary diagnoses documented for the Encounter. Date/Time Primary/Secondary Diagnosis Diagnosis Name Provider Source Nov 03, 2024 09:59 AM PRIMARY Encounter for fitting and adjustment of hearing aid [facility] [place] [facility] Nov 03, 2024 09:59 AM SECONDARY Sensorineural hearing loss, bilateral NADER OMER [facility] Plan of Treatment: Future Appointments (+ 6 months) and Future Tests (+/- 45 days) The Plan of Treatment section includes future care activities for the patient from all [place] [facility]. This section includes future appointments and future orders which are active, pending or scheduled. Future Appointments This section includes appointments that were scheduled to occur 6 months from the date of the Encounter, up to a maximum of 20 appointments. The data comes from all [facility]. Appointment Date/Time Appointment Type Appointme nt Facility Name Dec 31, 2024 10:00 AM [facility] Feb 04, 2025 02:30 PM AMBULATORY - MEDICINE [facility] Feb 04, 2025 03:30 PM AMBULATORY - MEDICINE [facility] Apr 06, 2025 10:30 AM AMBULATORY - REHAB MEDICIN E [facility] Active, Pending, and Scheduled Orders This section includes a listing of several types of active, pending, and scheduled orders, including clinic medications orders, diagnostic test orders, procedure orders and consult orders; where the start date of the order is 45 days before the date of the Encounter or 45 days after the date of theEncounter. The data comes from all [facility]. Test Date/Time Test Type Test Details Facility Name Nov 03, 2024 10:23 AM Consult Order [facility]ITY CARE-[facility] SURGICAL Cons Chief Of Hospital Medicine's Choice [facility] Social History: Smoking Status (Most current) and Tobacco Use (All prior to encounter date) This section includes the most current, and the historical, smoking and tobacco- related health factors from the [place] facility where the Encounter took place. Current Smoking Status This section includes the most current smoking, or tobacco-related health factor, from the [place] facility where the Encounter took place. Date/Time Current Smoking Status Comment Leona itchuyita Nov 11, 2023 11:00 AM [place]-TOBACCO NEVER USED [facility] Tobacco Use History This section includes a history of the smoking, or tobacco-related health factors, that were collected on or before the date of the Encounter. The data comes from the [place] facility where the Encounter took place. Date/Time Smoking Status/Tobacco Use Comment F acility Sep 27, 2022 10:30 AM VA-TOBACCO FORMER USER [facility] [place] [facility] Sep 27, 2022 10:30 AM VA-TOBACCO QUIT 15 YRS OR MORE [facility] [place] [facility] Aug 30, 2021 09:20 AM VA-TOBACCO FORMER USER [facility] [place] [facility] Aug 30, 2021 09:20 AM VA-TOBACCO QUIT 15 YRS OR MORE [facility] [place] [facility] August 07, 2020 09:00 AM VA-TOBACCO FORMER USER [facility] [place] [facility] August 07, 2020 09:00 AM VA-TOBACCO QUIT 15 YRS OR MORE [facility] [place] [facility] Jul 12, 2019 10:05 AM VA-TOBACCO FORMER USER [facility] [place] [facility] Jul 12, 2019 10:05 AM VA-TOBACCO QUIT 15 YRS OR MORE [facility] [place] [facility] Jul 03, 2018 10:51 AM VA-TOBACCO FORMER USER [facility] [place] [facility] Jul 03, 2018 10:51 AM VA-TOBACCO QUIT 5 TO < 15 YRS [facility] [place] [facility] Sep 01, 2017 10:25 AM QUIT TOBACCO USE > 7 YEARS AGO [facility] [place] [facility] Aug 29, 2016 09:22 AM QUIT TOBACCO USE > 7 YEARS AGO [facility] [place] [facility] August 15, 2015 02:32 PM QUIT TOBACCO USE > 7 YEARS AGO [facility] [place] [facility] Advance Directives: All historical and current [...] Dec 17, 2018 ADVANCE DIRECTIVE LIZ HERNANDEZ [facility] [place] [facility] May 30, 2017 ADVANCE DIRECTIVE VICTOR MANUEL PAITNING [facility] [place] [facility] Dec 25, 2005 ADVANCE DIRECTIVE IRENA OSEI [facility] Encounter Notes: All associated encounter notes This section contains the clinical notes associated to the Encounter. Date/Time Encounter Note(s) Provider Source Nov 03, 2024 09:54 AM AUDIOLOGY E & M NO TE: LOCAL TITLE: AUDIOLOGY CLINIC STANDARD TITLE: AUDIOLOGY E & M NOTE DATE OF NOTE: NOV 03, 2024@09:54 ENTRY DATE: NOV 03, 2024@09:54:45 AUTHOR: NADER OMER EXP COSIGNER: URGENCY: STATUS: COMPLETED [place] was seen November 03, 2024 to tack picker silicone JEIMY canal lock earmolds. Both aids attached to new earmolds and good fit noted upon insertion. [place] will try new earmolds for a few days and if still not as comfortable as the 6mm domes, he is given a small supply of domes and and [place] shown how to change back. to contact us as needed with problems/concerns. Patient Education Education provided on the following topics: Education provided to: Response to Education: [place] Patient P Family F Significant Other SO Verbalizes Understanding VU Returns Demonstration RD Performs Independently PI Lacks Comprehension LC Refused Education RE Not Applicable NA /juliann/ NADER Chanel, FABIOLA-A CHIEF, AUDIOLOGY/APPLICATION TECHNICIAN Signed: 11/03/2024 09:59 NADER OMER [facility]
--- OUTSIDE RECORDS SUMMARY | 2024-11-08 04:02 | XMS_ITS | Encounter Summary ---
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 Role Phone DILAN LOPEZ Primary Care [...] O MEDEX BRONZ E Oct 15, 2008 [id number] CARIE MAE PATIENT ANTHEM BCBS OF CT (BLUECARD) MEDICARE SUPPLEMEN HUMZA MEDEX BRONZ E Feb 14, 2022 [id number] [phone] CARIE MAE PATIENT [place] SUPPLEMEN HUMZA MEDEX BRONZ E Feb 14, 2022 [id number] CARIE MAE [place] SUPPLEMEN HMUZA MEDEX BRONZ E Oct 15, 2008 [id number] CARIE MAE PAT[place] SUPPLEMEN HUMZA MEDEX HEARI NG AND Mar 17, 2019 [id number] CARIE MAE PATIENT MEDICARE (WNR) MEDICARE (M) PART A Oct 15, 2008 PART A [id number] CARIE MAE PATIENT MEDICARE (WNR) MEDICARE (M) PART B Oct 15, 2008 PART B [id number] CARIE MAE PATIENT MEDICARE (WNR) MEDICARE (M) PART A Oct 15, 2008 PART A [id number] [phone] CARIE MAE PATIENT MEDICARE (WNR) MEDICARE (M) PART B Oct 15, 2008 PART B [id number] [phone] CARIE MAE PATIENT MEDICARE (WNR) MEDICARE (M) PART A Oct 15, 2008 PART A [id number] CARIE MAE PATIENT MEDICARE (WNR) MEDICARE (M) PART B Oct 15, 2008 PART B [id number] CARIE MAE PATIENT MEDICARE (WNR) MEDICARE (M) PART A Oct 15, 2008 PART A [id number] CARIE MAE PATIENT MEDICARE (WNR) MEDICARE (M) PART B Oct 15, 2008 PART B [id number] CARIE MAE PATIENT Selected Encounter This section includes the information on record at [place] for the Encounter. Date/Time Encounter Type Encounter Description Reason Provider Source Nov 08, 2024 08:02 AM Outpatient Encounter PRIMARY CARE/MEDICINE SHAHLA ALLEN Encounter Template Text not used by [place] Plan of Treatment: Future Appointments (+ 6 months) and Future Tests (+/- 45 days) The Plan of Treatment section includes future care activities for the patient from all [place] treatmentfacilities. This section includes future appointments and future orders which are active, pending or scheduled. Future Appointments This section includes appointments that were scheduled to occur 6 months from the date of the Encounter, up to a maximum of 20 appointments. The data comes from all [place] treatment facilities. Appointment Date/Time Appointment Type Appointme nt Facility Name Dec 31, 2024 10:00 AM AMBULATORY - MEDICINE [facility] [place] [facility] Feb 04, 2025 02:30 PM AMBULATORY - MEDICINE [place] [facility] [place] [facility] Feb 04, 2025 03:30 PM AMBULATORY - MEDICINE [place] [facility] [place] [facility] Apr 06, 2025 10:30 AM [facility] Active, Pending, and Scheduled Orders This section includes a listing of several types of active, pending, and scheduled orders, including clinic medications orders, diagnostic test orders, procedure orders and consult orders; where the start date of the order is 45 days before the date of the Encounter or 45 days after the date of theEncounter. The data comes from all [place] treatment facilities. Test Date/Time Test Type Test Details Facility Name Nov 03, 2024 10:23 AM Consult Order [facility] Cons Missile Facilities Repairer's Choice [facility] Social History: Smoking Status (Most current) and Tobacco Use (All prior to encounter date) This section includes the most current, and the historical, smoking and tobacco- related health factors from the [place] facility where the Encounter took place. Current Smoking Status This section includes the most current smoking, or tobacco-related health factor, from the [place] facility where the Encounter took place. Date/Time Current Smoking Status Comment Leona itchuyita Nov 11, 2023 11:00 AM VA-TOBACCO [facility] Tobacco Use History This section includes a history of the smoking, or tobacco-related health factors, that were collected on or before the date of the Encounter. The data comes from the [place] facility where the Encounter took place. Date/Time Smoking Status/Tobacco Use Comment F acility Sep 27, 2022 10:30 AM VA-TOBACCO FORMER USER [place] [facility] [place] [facility] Sep 27, 2022 10:30 AM VA-TOBACCO QUIT 15 YRS OR MORE [place] [facility] [place] [facility] Aug 30, 2021 09:20 AM VA-TOBACCO FORMER USER [place] [facility] [place] [facility] Aug 30, 2021 09:20 AM VA-TOBACCO QUIT 15 YRS OR MORE [place] [facility] [place] [facility] August 07, 2020 09:00 AM VA-TOBACCO FORMER USER [place] [facility] [place] [facility] August 07, 2020 09:00 AM VA-TOBACCO QUIT 15 YRS OR MORE [place] [facility] [place] [facility] Jul 12, 2019 10:05 AM VA-TOBACCO FORMER USER [place] [facility] [place] [facility] Jul 12, 2019 10:05 AM VA-TOBACCO QUIT 15 YRS OR MORE [place] [facility] [place] [facility] Jul 03, 2018 10:51 AM VA-TOBACCO FORMER USER [place] [facility] [place] [facility] Jul 03, 2018 10:51 AM VA-TOBACCO QUIT 5 TO < 15 YRS [place] [facility] [place] [facility] Sep 01, 2017 10:25 AM QUIT TOBACCO USE > 7 YEARS AGO [place] [facility] [place] [facility] Aug 29, 2016 09:22 AM QUIT TOBACCO USE > 7 YEARS AGO [facility] August 15, 2015 02:32 PM QUIT TOBACCO USE > 7 YEARS AGO [facility] Advance Directives: All historical and current Section Date Range: From patient's date of to the date document was created. This section includes ALL of a patient's completed or amended [place] Advance and Rescinded Directives. The entries below indicate that a directive exists for the patient, but an actual copy is not included with this document. The data comes from all [place] facilities. Date Advance Directives Provider Source Dec 17, 2018 ADVANCE DIRECTIVE LIZ HERNANDEZ [facility] May 30, 2017 ADVANCE DIRECTIVE VICTOR MANUEL PAINTING [place] [facility] Dec 25, 2005 ADVANCE DIRECTIVE IRENA OSEI-[facility] Encounter Notes: All associated encounter notes This section contains the clinical notes associated to the Encounter. Date/Time Encounter Note(s) Provider Source Nov 08, 2024 08:02 AM PRIMARY CARE SECUR E MESSAGING: LOCAL TITLE: PRIMARY CARE SECURE MESSAGING STANDARD TITLE: PRIMARY CARE SECURE MESSAGING DATE OF NOTE: NOV 08, 2024@08:02 ENTRY DATE: NOV 08, 2024@08:02:07 AUTHOR: SHAHLA ALLEN COSIGNER: URGENCY: STATUS: COMPLETED ------Original Message -------- Sent: 11/07/2024 06:49 PM ET From: CARIE MAE To: Rema LOPEZ_PRIMARY CARE_[facility] Subject: General:Records Can we cotton picker a copy of the hospital records from 10/22/24 to 10/24 24 that I recently gave you. Found that I might need that info after all. ([facility] ) ------Original Message -------- Sent: 11/08/2024 08:01 AM ET From: SHAHLA ALLEN To: CARIE MAE Subject: General:Records Hi those copies have gone to our HIMS dept(records dept). Please reach out to [employer] ( release of records). Here is the fax number [phone]. Please fax your request to them and with all of the information you need. Danny Burnette /juliann/ SHAHLA ALLEN Registered Nurse Signed: 11/08/2024 08:02 SHAHLA ALLEN [place] [facility]
--- OUTSIDE RECORDS SUMMARY | 2024-11-08 04:40 | XMS_ITS | Encounter Summary ---
Author Name [facility] Organization [facility] Address [address] [place] [address] Care Team Providers Care Psychologist Research Assistant Name Role Phone DILAN LOPEZ Primary Care [...] O MEDEX BRONZ E Oct 15, 2008 [id number] [phone] CARIE MAE PATIENT ANTHEM BCBS OF [place] (BLUECARD) MEDICARE SUPPLEMEN HUMZA MEDEX BRONZ E Feb 14, 2022 [id number] [phone] CARIE MAE PATIENT [place] SU[place]LEMEN HUMZA MEDEX BRONZ E Feb 14, 2022 [id number] CARIE MAE PATIENT [place] SUPPLEMEN [place]UM[place] MEDEX BRONZ E Oct 15, 2008 [id number] CARIE MAE PATIENT [place] SUPPLEMEN HUMZA MEDEX HEARI NG AND Mar 17, 2019 [id number] CARIE MAE PATIENT MEDICARE (WNR) MEDICARE (M) PART A Oct 15, 2008 PART A [id number] [phone] CARIE MAE PATIENT MEDICARE (WNR) MEDICARE (M) PART B Oct 15, 2008 PART B [id number] CARIE MAE PATIENT MEDICARE (WNR) MEDICARE (M) PART A Oct 15, 2008 PART A [id number] CARIE MAE PATIENT MEDICARE (WNR) MEDICARE (M) PART B Oct 15, 2008 PART B [id number] CARIE MAE PATIENT MEDICARE (WNR) MEDICARE (M) PART A Oct 15, 2008 PART A [id number] CARIE MAE PATIENT MEDICARE (WNR) MEDICARE (M) PART B Oct 15, 2008 PART B [id number] CARIE MAE PATIENT MEDICARE (WNR) MEDICARE (M) PART A Oct 15, 2008 PART A [id number] [phone] CARIE MAE PATIENT MEDICARE (WNR) MEDICARE (M) PART B Oct 15, 2008 PART B [id number] [phone] CARIE MAE PATIENT Selected Encounter This section includes the information on record at DC for the Encounter. Date/Time Encounter Type Encounter Description Reason Pro vider Source Nov 08, 2024 08:40 AM Outpatient Encounter PM&RS PHYSICIAN IHE Encounter Template Text not used by DC Plan of Treatment: Future Appointments (+ 6 months) and Future Tests (+/- 45 days) The Plan of Treatment section includes future care activities for the patient from all [place] treatmentfacilities. This section includes future appointments and future orders which are active, pending or scheduled. Future Appointments This section includes appointments that were scheduled to occur 6 months from the date of the Encounter, up to a maximum of 20 appointments. The data comes from all [place] treatment facilities. Appointment Date/Time Appointment Type Appointme nt Facility Name Dec 31, 2024 10:00 AM AMBULATORY - MEDICINE [place] [facility] [place] [facility] Feb 04, 2025 02:30 PM AMBULATORY - MEDICINE [place] [facility] [place] [facility] Feb 04, 2025 03:30 PM AMBULATORY - MEDICINE [place] [facility] [place] [facility] Apr 06, 2025 10:30 AM [facility] Active, Pending, and Scheduled Orders This section includes a listing of several types of active, pending, and scheduled orders, including clinic medications orders, diagnostic test orders, procedure orders and consult orders; where the start date of the order is 45 days before the date of the Encounter or 45 days after the date of theEncounter. The data comes from all [place] treatment facilities. Test Date/Time Test Type Test Details Facility Name Nov 03, 2024 10:23 AM Consult Order [facility] SURGICAL Cons [facility] Social History: Smoking Status (Most current) and Tobacco Use (All prior to encounter date) This section includes the most current, and the historical, smoking and tobacco- related health factors from the [place] facility where the Encounter took place. Current Smoking Status This section includes the most current smoking, or tobacco-related health factor, from the [place] facility where the Encounter took place. Date/Time Current Smoking Status Comment Leona weiss Nov 11, 2023 11:00 AM VA-TOBACCO [facility]ED [facility] Tobacco Use History This section includes a history of the smoking, or tobacco-related health factors, that were collected on or before the date of the Encounter. The data comes from the [place] facility where the Encounter took place. Date/Time Smoking Status/Tobacco Use Comment F acility Sep 27, 2022 10:30 AM VA-TOBACCO FORMER USER [place] [facility] [place] [facility] Sep 27, 2022 10:30 AM VA-TOBACCO QUIT 15 YRS OR MORE [facility] [place] [facility] Aug 30, 2021 09:20 AM VA-TOBACCO FORMER USER [place] [facility] [place] [facility] Aug 30, 2021 09:20 AM VA-TOBACCO QUIT 15 YRS OR MORE [place] [facility] [place] [facility] August 07, 2020 09:00 AM VA-TOBACCO FORMER USER [place] [facility] [place] [facility] August 07, 2020 09:00 AM VA-TOBACCO QUIT 15 YRS OR MORE [facility] [place] [facility] Jul 12, 2019 10:05 AM VA-TOBACCO FORMER USER [place] [facility] [place] [facility] Jul 12, 2019 10:05 AM VA-TOBACCO QUIT 15 YRS OR MORE [facility] Jul 03, 2018 10:51 AM VA-TOBACCO FORMER USER [place] [facility] [place] [facility] Jul 03, 2018 10:51 AM VA-TOBACCO QUIT 5 TO < 15 YRS [place] [facility] [place] [facility] Sep 01, 2017 10:25 AM QUIT TOBACCO USE > 7 YEARS AGO [place] [facility] [place] [facility] Aug 29, 2016 09:22 AM QUIT TOBACCO USE > 7 YEARS AGO [place] [facility] [place] [facility] August 15, 2015 02:32 PM QUIT TOBACCO USE > 7 YEARS AGO [facility] Advance Directives: All historical and current Section Date Range: From patient's date of to the date document was created. This section includes ALL of a patient's completed or amended [place] Advance and Rescinded Directives. The entries below indicate that a directive exists for the patient, but an actual copy is not included with this document. The data comes from all [place] facilities. Date Advance Directives Provider Source Dec 17, 2018 ADVANCE DIRECTIVE [facility] May 30, 2017 ADVANCE DIRECTIVE VICTOR MANUEL [employer] [facility] Dec 25, 2005 ADVANCE DIRECTIVE IRENA OSEI [facility] Encounter Notes: All associated encounter notes This section contains the clinical notes associated to the Encounter. Date/Time Encounter Note(s) Provider Source Nov 08, 2024 08:42 AM LETTERS: LOCAL TITLE: PATIENT LETTER (B) STANDARD TITLE: LETTERS DATE OF NOTE: NOV 08, 2024@08:42 ENTRY DATE: NOV 08, 2024@08:42:24 AUTHOR: RIP RODRIGUEZ COSIGNER: URGENCY: STATUS: COMPLETED NOV 08, 2024 CARIE MAE [address] [place] [id number] Dear CARIE MAE Thank you for choosing the [facility] ([place]) [facility] as your primary choice for health care. As a partner in your health care, we are contacting you in writing since we have been unsuccessful in our attempts to reach you to date. 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 Our records indicate you are due for an appointment in [facility]HAB Thank you for choosing the [facility] ([place]) [facility] as your primary choice for health care. As a partner in your health care, we are contacting you in writing since we have been unsuccessful in our attempts to reach you to date. 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 If you would like to be seen, please contact [facility] at [phone] Ext. [phone] schedule an appointment. Thank you for your service to our nation, and we look forward to hearing from you soon. Sincerely, [facility] [address] [facility] [address] [place] [address] [place] [address] ext. [phone] [facility] [address] [facility] [address] [place] [address] [place] [address] [phone] [facility] [address] [address] [place] [address] ext. [phone] [facility] [address] [place] [address] RIP RODRIGUEZ [place] [facility] [place] [facility] Nov 08, 2024 08:40 AM TELEPHONE ENCOUNTE R NOTE: LOCAL TITLE: TELEPHONE NOTE/SPECIALTY CLINIC STANDARD TITLE: TELEPHONE ENCOUNTER NOTE DATE OF NOTE: NOV 08, 2024@08:40 ENTRY DATE: NOV 08, 2024@08:41:02 AUTHOR: RIP RODRIGUEZ EXP COSIGNER: URGENCY: STATUS: COMPLETED RTC orders: Unable to contact patient: Attempts to contact: 1st attempt: Left voicemail 2nd attempt: Letter mailed Disposition on Sep 8,2025 3rd attempt: 4th attempt: RTC PID 09/29/2024 /[email or web address]/ RIP RODRIGUEZ ADVANCED DIRECTOR ONCOLOGY Signed: 11/08/2024 08:42 RIP [facility]IGUEZ [facility]
--- OUTSIDE RECORDS SUMMARY | 2024-11-09 08:22 | XMS_ITS | Continuity of Care Document ---
Author Name [facility] Organization [facility] Care Team Providers Care Truck Bracer Name Role Phone [facility] Unavailable Unavailable Problems Combined list of problems [...] Condition -[facility]- Atrial Fibrillation (SCT 78705529) Active Condition [facility] Benign essential hypertension (SNOMED CT 8754155) Active Condition May 26, 2007 Entered By: PATIENCE PEREZ Comment: 01/20 Stress ECHO negative 04/22 Spect EF 55% [facility] Cardiac pacemaker in situ Active Condition August 07, 2020 Entered By: AMMY LOPEZ AM Comment: [employer] Product ICM model M301 serial [id number] May,. [facility] Environmental [...] replacement 04, [facility] Osteoporosis Active Condition [facility] Pain in joint involving shoulder region (ICD-9-CM 719.41) Active Condition [place] Prostate cancer (SNOMED CT 774883042) Active Condition Feb 20, 2007 Entered By: PASHA ABEL Comment: 02; T2anx sulaiman 4/4, psa 13.5Mar 25, 2007 Entered By: PASHA ABEL Comment: lupron 02, seed brachytherapy implant 09/15, xrt ext beam08/16Aug 2021 Entered By: SALLIE WHITE Comment: metastatic prostate ca, on ADT/Zytiga s/p bilaterally orchiectomy on 09/28/[address] Santos [facility] Psoriasis Active Condition [...] [facility] Diagnosis: ICD-10-CM M81.0 Age-related osteoporosis w/o current pathological fracture Active Diagnosis [facility] Diagnosis: ICD-10-CM M25.569 Pain in unspecified knee Active Diagnosis [facility] [...] M75.20 Bicipital tendinitis, unspecified shoulder Active Diagnosis [facility] Medications Combined list of outpatient medications from Department of Defense and Veterans Affairs facilities.Medications provided include 1) outpatient medications from the last 15 months, and 2) patient-reported medications. Medication Details Route Status Patient Instructions Prescription Expires Prescription Number Last Dispense Date Ordering Provider Order Date Order Qty Source APIXABAN 5MG TAB TAKE ONE TABLET BY MOUTH TWICE DAILY ORAL ACTIVE 09/29/2025 [id number] DILAN LOPEZ 2024 180 [facility] APIXABAN 5MG TAB TAKE ONE TABLET BY MOUTH TWICE DAILY ORAL DISCONT INUED 08/27/2024 [id number] DILAN LOPEZ 2023 180 [facility] APIXABAN 5MG TAB TAKE ONE TABLET BY MOUTH TWICE DAILY ORAL DISCONT INUED 12/18/2023 [id number] 4 DILAN LOPEZ 2022 180 [facility] CALCIPOTRIE NE 0.005% CREAM,TOP APPLY TO AFFECTED AREA ON SKIN DIRECTED TOPICA L ACTIVE ZEV CORONEL 2005 [facility] CALCIUM 250MG/VITAM IN D 125UNIT TAB TAKE ONE BY MOUTH ONCE DAILY ORAL ACTIVE DILAN LOPEZ 2024 [facility] CARBOXYMETH YLCELLULOSE NA 0.5% SOLN,OPH INSTILL 1 DROP INTO EACH EYE FOUR TIMES A DAY FOR DRY EYE OPHTHA LMIC ACTIVE 05/15/2025 [id number] ANA MUIR 2024 45 [facility] CARBOXYMETH YLCELLULOSE NA 1% GEL,OPH APPLY 1 DROP INTO EACH EYE FOUR TIMES A DAY FOR DRY EYE OPHTHA LMIC 12/12/2023 [id number] 4 ANA MUIR 2022 45 [facility] CEPHALEXIN 500MG CAP TAKE ONE CAPSULE BY MOUTH EVERY 8 HOURS FOR INFECTIO N CAUSED BY BACTERIA FOR INFECTIO N ORAL DISCONT INUED (EDIT) 04/21/2024 [id number] AG LION 2024 21 [facility] DAROLUTAMID E 300MG TAB TAKE TWO TABLETS BY MOUTH TWICE DAILY ORAL ACTIVE 10/13/2025 [id number] 5 DAVIDCarlos RICO L 2024 120 [facility] DAROLUTAMID E 300MG TAB TAKE TWO TABLETS BY MOUTH TWICE DAILY ORAL DISCONT INUED 04/20/2025 [id number] JOVAN OSWALDLILIBETH L 2024 120 [facility] DENOSUMAB (PROLIA) PA-F INJ,SOLN INJECT ACTIVE DILAN LOPEZ 2023 [facility] HYDROCHLORO THIAZIDE 12.5MG CAP TAKE ONE CAPSULE BY MOUTH EVERY MORNING FOR HIGH BLOOD PRESSURE ORAL ACTIVE 12/18/2024 [id number] 5 [facility] 2023 [facility] HYDROCHLORO THIAZIDE 12.5MG CAP TAKE ONE CAPSULE BY MOUTH EVERY MORNING FOR HIGH BLOOD PRESSURE ORAL DISCONT INUED BY PROVIDE R 08/19/2024 [id number] 4 [facility] FELTON 2023 90 [facility] HYDROCHLORO THIAZIDE 25MG TAB TAKE ONE TABLET BY MOUTH EVERY MORNING FOR HIGH BLOOD PRESSURE ORAL DISCONT INUED BY PROVIDE R 12/10/2024 [id number] 4 [facility]OPE[facility] 2023 [facility] LIDOCAINE 5% OINT,TOP APPLY SMALL AMOUNT TOPICALL Y FOUR TIMES DAILY NEEDED FOR LEFT SHOULDER PAIN TOPICA L ACTIVE 05/19/2025 [id number] 5 DILAN LOPEZ 2024 35 [facility] LIDOCAINE 5% OINT,TOP APPLY SMALL AMOUNT TOPICALL Y FOUR TIMES DAILY NEEDED FOR LEFT SHOULDER PAIN TOPICA L DISCONT INUED 04/15/2025 [id number] 5 SEVEN LOPEZ [facility] 2024 35 [facility] LIDOCAINE 5% OINT,TOP APPLY SMALL AMOUNT TOPICALL Y FOUR TIMES DAILY NEEDED FOR LEFT SHOULDER PAIN TOPICA L DISCONT INUED 11/11/2024 [id number] 4 DILAN LOPEZ 2023 30 [facility] LIDOCAINE 5% OINT,TOP APPLY SMALL AMOUNT TOPICALL Y FOUR TIMES DAILY NEEDED FOR LEFT SHOULDER PAIN TOPICA L DISCONT INUED 08/12/2024 [id number] SEVEN LOPEZ [facility] 2023 30 [facility] LIDOCAINE 5% PATCH APPLY 2 PATCHES TOPICALL Y ONCE DAILY NEEDED FOR LOW BACK PAIN (LEAVE PATCH ON FOR 12 HOURS, THEN REMOVE PATCH) TOPICA L ACTIVE 05/05/2025 [id number] 5 DILAN LOPEZ 2024 60 [facility] LIDOCAINE 5% PATCH APPLY 1 PATCH TOPICALL Y ONCE DAILY NEEDED FOR LOW BACK PAIN (LEAVE PATCH ON FOR 12 HOURS, THEN REMOVE PATCH) TOPICA L DISCONT INUED (EDIT) 11/11/2024 [id number] 4 DILAN LOPEZ 2023 30 [facility] LIDOCAINE 5% PATCH APPLY 1 PATCH TOPICALL Y ONCE DAILY NEEDED FOR LOW BACK PAIN (LEAVE PATCH ON FOR 12 HOURS, THEN REMOVE PATCH) TOPICA L DISCONT INUED 08/12/2024 [id number] 4 SEVEN LOPEZ [facility] 2023 30 [facility] LISINOPRIL 10MG TAB TAKE ONE TABLET BY MOUTH TWICE DAILY TO CONTROL BLOOD PRESSURE ORAL DISCONT INUED (EDIT) 11/11/2024 [id number] 4 MARILUDILAN WALTERS 2023 180 [facility] LISINOPRIL 10MG TAB TAKE ONE TABLET BY MOUTH TWICE DAILY TO CONTROL BLOOD PRESSURE ORAL DISCONT INUED 04/28/2024 [id number] 4 RA ALEJO WHITEHRYN 2023 180 [facility] LISINOPRIL 20MG TAB TAKE ONE TABLET BY MOUTH ONCE DAILY TO CONTROL BLOOD PRESSURE ORAL ACTIVE 05/19/2025 [id number] 5 EPIFANIODILAN NAM 2024 90 [facility] LISINOPRIL 20MG TAB TAKE ONE TABLET BY MOUTH TWICE DAILY TO CONTROL BLOOD PRESSURE ORAL DISCONT INUED (EDIT) 12/18/2024 [id number] 4 EPIFANIODILAN NAM 2023 180 [facility] MINERAL OIL,LIGHT/P ETROLATUM (PF) OINT,OPH APPLY THIN RIBBON INTO EACH EYE AT BEDTIME FOR DRY EYE OPHTHA LMIC ACTIVE 05/15/2025 [id number] 5 MUIR,LAC EY J 2024 3 [facility] MINERAL OIL,LIGHT/P ETROLATUM (PF) OINT,OPH APPLY THIN RIBBON INTO EACH EYE AT BEDTIME FOR DRY EYE OPHTHA LMIC 12/12/2023 [id number] 4 MUIR,LAC EY J 2022 3 [facility] MIRABEGRON 25MG TAB,SA TAKE ONE TABLET BY MOUTH ONCE DAILY ORAL ACTIVE 11/11/2024 [id number] 5 JOHNDILAN Rodrigues 2023 90 [facility] VITAMIN D3 (CHOLECALCI FEROL) TAB TAKE BY MOUTH ORAL ACTIVE JOHN DILAN Ravi 2017 [facility] Allergies, Adverse Reactions, Alerts Combined list of allergies from Department of Defense and Veterans Affairs facilities. It does not include entries that were removed or entered in error. Substance Category Reaction Severity Reaction type Status Date Reported Comments Source BICALUTAMIDE Propensity to adverse reactions to drug (finding) Generalized aches and pains active 7 [facility] Propensity to adverse reactions to drug (finding) Eruption active 6 [facility] Propensity to adverse reactions to drug (finding) Urticaria active 7 [facility] Immunizations Combined list of available immunizations from the Department of Defense and Veterans Affairs facilities. Immunization Series Date Given Administered By Site Reaction Lot Number CVX Code Drug Package Delivery Driver Status Comments Source COVID-19 (MODERNA), MRNA, LNP-S, PF, 50 MCG/0.5 ML (AGES 12+ YEARS) 1 2024 LISETTE MACIEL E RIGHT DELTO ID [id number] 312 complet ed [facility] COVID-19 (MODERNA), MRNA, LNP-S, PF, 50 MCG/0.5 ML (AGES 12+ YEARS) 1 2023 312 complet ed HISTORICA L INFORMATI ON - FROM OTHER PROVIDER, Mfr: [employer]LINE [facility] RSV, BIVALENT, PROTEIN SUBUNIT RSVPREF, DILUENT RECONSTITUTED , 0.5 ML, PF 1 2023 305 complet ed HISTORICA L INFORMATI ON - FROM OTHER PROVIDER, Lot#: [id number] [facility] TDAP 2023 115 complet ed Booster for Series, HISTORICA L INFORMATI ON - FROM OTHER PROVIDER, Lot#: [id number] [facility] IN[facility], UNSPECIFIED FORMULATION 2023 88 complet ed Booster for Series, HISTORICA L INFORMATI ON - FROM OTHER PROVIDER, [facility] HEP A-HEP B 3 2023 LISETTE MACIEL E LEFT DELTO ID [id number] 104 complet ed [facility] HEP A-HEP B 2 2022 KELSY ZHOU RIGHT DELTO ID [id number] 104 complet ed [facility] HEP A-HEP B 1 2022 LISETTE MACIEL E RIGHT DELTO ID [id number] 104 complet ed [facility] COVID-19 (PFIZER), MRNA, LNP-S, PF, JUMANA-SUCROSE, 30 MCG/0.3 ML (AGES 12+ YEARS) 1 2022 309 complet ed HISTORICA L INFORMATI ON - FROM OTHER PROVIDER, [facility] INFLUENZA, UNSPECIFIED FORMULATION 2022 88 complet ed Booster for Series, HISTORICA L INFORMATI ON - FROM OTHER PROVIDER, [facility] TDAP 2022 LISETTE MACIEL E [place] ID [id number] 115 complet ed Booster for Series, [facility] INFLUENZA, UNSPECIFIED FORMULATION 2021 88 complet ed Completed Series, HISTORICA L INFORMATI ON - FROM OTHER PROVIDER, [facility] COVID-19 (PFIZER), MRNA, LNP-S, BIVALENT, PF, 30 MCG/0.3 ML DOSE 5 2021 300 complet ed HISTORICA L INFORMATI ON - FROM OTHER PROVIDER, [facility] COVID-19 (MODERNA), MRNA, LNP-S, PF, 100 MCG/0.5ML DOSE OR 50 MCG/0.25ML DOSE 3 2021 207 complet ed [facility] COVID-19 (MODERNA), MRNA, LNP-S, PF, 100 MCG OR 50 MCG DOSE 3 2020 207 complet ed [facility] INFLUENZA VACCINE, QUADRIVALENT, ADJUVANTED 2020 205 complet ed [facility] COVID-19 (MODERNA), MRNA, LNP-S, PF, 100 MCG/0.5 ML DOSE 2 2020 207 complet ed MOD; [id number]; 1 [facility] COVID-19 (MODERNA), MRNA, LNP-S, PF, 100 MCG/0.5 ML DOSE 1 2020 207 complet ed MOD; [id number]; 1 [facility] ZOSTER RECOMBINANT 2 2019 187 complet ed [facility] ZOSTER RECOMBINANT 1 2019 187 complet ed [facility] INFLUENZA, UNSPECIFIED FORMULATION 2019 88 complet ed [facility] INFLUENZA, SEASONAL, INJECTABLE 2018 141 complet ed high dose flu [facility] on [facility] [...] HCS INFLUENZA, UNSPECIFIED FORMULATION 2006 MARIELLE AGUERO E 88 comple t ed [facility] FLU,3 YRS (HISTORICAL) 2006 88 complet ed [place] PNEUMOCOCCAL, UNSPECIFIED FORMULATION 2005 NONE 109 complet ed [facility] TD(ADULT) UNSPECIFIED FORMULATION 2005 139 complet ed [facility] INFLUENZA, UNSPECIFIED FORMULATION 2005 88 complet ed [facility] PNEUMOCOCCAL POLYSACCHARID E [id number] 1999 33 complet ed [facility] Results Combined list of recent chemistry, hematology and other laboratory results from Department of Defense and Veterans Affairs, ranging from 15 months to all on record, depending upon the facility. Order Name Results Value Reference Range Date Interpretation Specimen Comments Source CALCIUM IONIZED CALCIUM.ION IZED [MASS/VOLUM E] IN SERUM OR PLASMA 5.1 mg/dL 4.7 - 5.5 09/28 Specimen Type: SERUM Comment: Test Performed by [facility], [address] [place] [address] Juan Lynn M.D., Ph.D., Director of Laboratorie s , CLIA [id number] TEST PERFORMED AT: , Ordering Provider: Rema LOPEZ Report Released Date/Time: Sep 28, 2024 08:47 AM Reporting Lab: [facility] [address] [facility] [address] Performing Lab: [facility] [address] [address] [facility] CALCIUM CALCIUM [MASS/VOLUM E] IN SERUM OR PLASMA 8.6 mg/dL 8.8 - 10 09/28 L Specimen Type: SERUM No comment entered. Ordering Provider: Rema LOPEZ Report Released Date/Time: Sep 28, 2024 08:47 AM Reporting Lab: [facility] [place] [facility] [address] [facility] [address] Performing Lab: [facility] [address] [facility] [address] [facility] PTH INTACT PARATHYRIN. INTACT [MASS/VOLUM E] IN SERUM OR PLASMA 50.1 pg/mL 8.7 - 77.1 09/28 Specimen Type: SERUM No comment entered. Ordering Provider: Rema LOPEZ Report Released Date/Time: Sep 28, 2024 08:47 AM Reporting Lab: [facility] [address] [facility] [address] Performing Lab: [facility] [place] [facility] [address] [facility] [address] [facility] [facility] PO4 PHOSPHATE [MASS/VOLUM E] IN SERUM OR PLASMA 3.6 mg/dL 2.5 - 4.5 09/28 Specimen Type: SERUM No comment entered. Ordering Provider: Rema LOPEZ Report Released Date/Time: Sep 28, 2024 08:47 AM Reporting Lab: [facility] [address] [facility] [address] Performing Lab: [facility] [place] [facility] [address] [facility] [address] [facility] [place] [facility] MAGNESIUM MAGNESIUM [MASS/VOLUM E] IN SERUM OR PLASMA 2.2 mg/dL 1.6 - 2.6 09/28 Specimen Type: SERUM No comment entered. Ordering Provider: Rema LOPEZ Report Released Date/Time: Sep 28, 2024 08:47 AM Reporting Lab: [facility] [address] [address] Performing Lab: [facility] [address] [facility] [address] [facility] PSA PROSTATE SPECIFIC AG [MASS/VOLUM E] IN SERUM OR PLASMA BY IMMUNOASSAY 3.6 ng/mL 0 - 4 09/23 Specimen Type: SERUM No comment entered. Ordering Provider: Rema LOPEZ Report Released Date/Time: May 18, 2024 08:43 AM Reporting Lab: [facility] [address] [facility] [address] Performing Lab: [facility] [address] [facility] [address] [facility] VITAMIN D (25-OH) 25-HYDROXYV ITAMIN D3+25-HYDRO XYVITAMIN D2 [MASS/VOLUM E] IN SERUM OR PLASMA 35.2 ng/mL 20 - 50 09/23 Specimen Type: SERUM No comment entered. Ordering Provider: Rema LOPEZ Report Released Date/Time: May 18, 2024 08:43 AM Reporting Lab: [facility] [address] [address] Performing Lab: [facility] [address] [facility] [address] [facility] LIPID PANEL FASTING CHOLESTEROL [MASS/VOLUM E] IN SERUM OR PLASMA 176 mg/dL 09/23 Specimen Type: SERUM Comment: notified of corrected report 09/24/24 at 1610 by JED SODIUM reported incorrectly as 133 by [[id number] 31]. Changed to 138 on Sep 24, 2024@17:49 by [[id number] 31]. SODIUM flagged incorrectly as L by [[id number] 31]. Changed to normal on Sep 24, 2024@17:49 by [[id number] 31]. POTASSIUM reported incorrectly as 4.6 by [[id number] 31]. Changed to 4.8 on Sep 24, 2024@17:49 by [[id number] 31]. CHLORIDE reported incorrectly as 102 by [[id number] 31]. Changed to 105 on Sep 24, 2024@17:49 by [[id number] 31]. Ordering Provider: Rema LOPEZ Report Released Date/Time: May 18, 2024 08:43 AM Reporting Lab: [facility] [address] [facility] [address] Performing Lab: [facility] [address] [facility] [address] [facility] LIPID PANEL FASTING TRIGLYCERID E [MASS/VOLUM E] IN SERUM OR PLASMA 113 mg/dL 0 - 150 09/23 Specimen Type: SERUM Comment: notified of corrected report 09/24/24 at 1610 by JED SODIUM reported incorrectly as 133 by [[id number] 31]. Changed to 138 on Sep 24, 2024@17:49 by [[id number] 31]. SODIUM flagged incorrectly as L by [[id number] 31]. Changed to normal on Sep 24, 2024@17:49 by [[id number] 31]. POTASSIUM reported incorrectly as 4.6 by [[id number] 31]. Changed to 4.8 on Sep 24, 2024@17:49 by [[id number] 31]. CHLORIDE reported incorrectly as 102 by [[id number] 31]. Changed to 105 on Sep 24, 2024@17:49 by [[id number] 31]. Ordering Provider: Rema LOPEZ Report Released Date/Time: May 18, 2024 08:43 AM Reporting Lab: [facility] [address] [address] Performing Lab: [facility] [address] [facility] [address] [facility] LIPID PANEL FASTING CHOLESTEROL IN LDL [MASS/VOLUM E] IN SERUM OR PLASMA BY CALCULATION 108 mg/dL 0 - 129 09/23 Specimen Type: SERUM Comment: notified of corrected report 09/24/24 at 1610 by JED SODIUM reported incorrectly as 133 by [[id number] 31]. Changed to 138 on Sep 24, 2024@17:49 by [[id number] 31]. SODIUM flagged incorrectly as L by [[id number] 31]. Changed to normal on Sep 24, 2024@17:49 by [[id number] 31]. POTASSIUM reported incorrectly as 4.6 by [[id number] 31]. Changed to 4.8 on Sep 24, 2024@17:49 by [[id number] 31]. CHLORIDE reported incorrectly as 102 by [[id number] 31]. Changed to 105 on Sep 24, 2024@17:49 by [[id number] 31]. Ordering Provider: Rema LOPEZ Report Released Date/Time: May 18, 2024 08:43 AM Reporting Lab: [facility] [address] [address] Performing Lab: [facility] OlistaRELIZA [facility] [address] [facility] [address] [facility] NBO TVUSE [facility] LIPID PANEL FASTING CHOLESTEROL .TOTAL/CHOL ESTEROL IN HDL [MASS RATIO] IN SERUM OR PLASMA 3.9 09/23 Specimen Type: SERUM Comment: notified of corrected report 09/24/24 at 1610 by JED SODIUM reported incorrectly as 133 by [[id number] 31]. Changed to 138 on Sep 24, 2024@17:49 by [[id number] 31]. SODIUM flagged incorrectly as L by [[id number] 31]. Changed to normal on Sep 24, 2024@17:49 by [[id number] 31]. POTASSIUM reported incorrectly as 4.6 by [[id number] 31]. Changed to 4.8 on Sep 24, 2024@17:49 by [[id number] 31]. CHLORIDE reported incorrectly as 102 by [[id number] 31]. Changed to 105 on Sep 24, 2024@17:49 by [[id number] 31]. Ordering Provider: Rema LOPEZ Report Released Date/Time: May 18, 2024 08:43 AM Reporting Lab: [facility] [address] [facility] [address] Performing Lab: [facility] TRN [facility] [address] [facility] [address] [facility]N [facility] LIPID PANEL FASTING CHOLESTEROL IN HDL [MASS/VOLUM E] IN SERUM OR PLASMA 45 mg/dL 40 09/23 Specimen Type: SERUM Comment: notified of corrected report 09/24/24 at 1610 by JED SODIUM reported incorrectly as 133 by [[id number] 31]. Changed to 138 on Sep 24, 2024@17:49 by [[id number] 31]. SODIUM flagged incorrectly as L by [[id number] 31]. Changed to normal on Sep 24, 2024@17:49 by [[id number] 31]. POTASSIUM reported incorrectly as 4.6 by [[id number] 31]. Changed to 4.8 on Sep 24, 2024@17:49 by [[id number] 31]. CHLORIDE reported incorrectly as 102 by [[id number] 31]. Changed to 105 on Sep 24, 2024@17:49 by [[id number] 31]. Ordering Provider: Rema LOPEZ Report Released Date/Time: May 18, 2024 08:43 AM Reporting Lab: [facility] [address] [address] Performing Lab: [facility]RL [facility] [address] [facility] [address] [address] [facility] BASIC METABOLIC PANEL (fasting) UREA NITROGEN [MASS/VOLUM E] IN SERUM OR PLASMA 16 mg/dL 8 - 26 09/23 Specimen Type: SERUM Comment: notified of corrected report 09/24/24 at 1610 by JED SODIUM reported incorrectly as 133 by [[id number] 31]. Changed to 138 on Sep 24, 2024@17:49 by [[id number] 31]. SODIUM flagged incorrectly as L by [[id number] 31]. Changed to normal on Sep 24, 2024@17:49 by [[id number] 31]. POTASSIUM reported incorrectly as 4.6 by [[id number] 31]. Changed to 4.8 on Sep 24, 2024@17:49 by [[id number] 31]. CHLORIDE reported incorrectly as 102 by [[id number] 31]. Changed to 105 on Sep 24, 2024@17:49 by [[id number] 31]. Ordering Provider: Rema LOPEZ Report Released Date/Time: May 18, 2024 08:43 AM Reporting Lab: [facility] [address] [address] Performing Lab: [facility] [address] [address] [facility] BASIC METABOLIC PANEL (fasting) GLUCOSE [MASS/VOLUM E] IN SERUM OR PLASMA 95 mg/dL 65 - 100 09/23 Specimen Type: SERUM Comment: notified of corrected report 09/24/24 at 1610 by JED SODIUM reported incorrectly as 133 by [[id number] 31]. Changed to 138 on Sep 24, 2024@17:49 by [[id number] 31]. SODIUM flagged incorrectly as L by [[id number] 31]. Changed to normal on Sep 24, 2024@17:49 by [[id number] 31]. POTASSIUM reported incorrectly as 4.6 by [[id number] 31]. Changed to 4.8 on Sep 24, 2024@17:49 by [[id number] 31]. CHLORIDE reported incorrectly as 102 by [[id number] 31]. Changed to 105 on Sep 24, 2024@17:49 by [[id number] 31]. Ordering Provider: Rema LOPEZ Report Released Date/Time: May 18, 2024 08:43 AM Reporting Lab: [facility] [id number] [address] Performing Lab: [address] [address] [facility] BASIC METABOLIC PANEL (fasting) SODIUM [MOLES/VOLU ME] IN SERUM OR PLASMA 138 mmol/L 136 - 145 09/23 L Specimen Type: SERUM Comment: notified of corrected report 09/24/24 at 1610 by JED SODIUM reported incorrectly as 133 by [[id number] 31]. Changed to 138 on Sep 24, 2024@17:49 by [[id number] 31]. SODIUM flagged incorrectly as L by [[id number] 31]. Changed to normal on Sep 24, 2024@17:49 by [[id number] 31]. POTASSIUM reported incorrectly as 4.6 by [[id number] 31]. Changed to 4.8 on Sep 24, 2024@17:49 by [[id number] 31]. CHLORIDE reported incorrectly as 102 by [[id number] 31]. Changed to 105 on Sep 24, 2024@17:49 by [[id number] 31]. Ordering Provider: Rema LOPEZ Report Released Date/Time: May 18, 2024 08:43 AM Reporting Lab: [address] [address] Performing Lab: [address] [address] [facility] BASIC METABOLIC PANEL (fasting) POTASSIUM [MOLES/VOLU ME] IN SERUM OR PLASMA 4.8 mmol/L 3.5 - 5.1 09/23 Specimen Type: SERUM Comment: notified of corrected report 09/24/24 at 1610 by JED SODIUM reported incorrectly as 133 by [[id number] 31]. Changed to 138 on Sep 24, 2024@17:49 by [[id number] 31]. SODIUM flagged incorrectly as L by [[id number] 31]. Changed to normal on Sep 24, 2024@17:49 by [[id number] 31]. POTASSIUM reported incorrectly as 4.6 by [[id number] 31]. Changed to 4.8 on Sep 24, 2024@17:49 by [[id number] 31]. CHLORIDE reported incorrectly as 102 by [[id number] 31]. Changed to 105 on Sep 24, 2024@17:49 by [[id number] 31]. Ordering Provider: Rema LOPEZ Report Released Date/Time: May 18, 2024 08:43 AM Reporting Lab: [facility] [facility] [address] [facility] [address] Performing Lab: [facility] [address] [address] [facility] BASIC METABOLIC PANEL (fasting) CHLORIDE [MOLES/VOLU ME] IN SERUM OR PLASMA 105 mmol/L 98 - 107 09/23 Specimen Type: SERUM Comment: notified of corrected report 09/24/24 at 1610 by JED SODIUM reported incorrectly as 133 by [[id number] 31]. Changed to 138 on Sep 24, 2024@17:49 by [[id number] 31]. SODIUM flagged incorrectly as L by [[id number] 31]. Changed to normal on Sep 24, 2024@17:49 by [[id number] 31]. POTASSIUM reported incorrectly as 4.6 by [[id number] 31]. Changed to 4.8 on Sep 24, 2024@17:49 by [[id number] 31]. CHLORIDE reported incorrectly as 102 by [[id number] 31]. Changed to 105 on Sep 24, 2024@17:49 by [[id number] 31]. Ordering Provider: Rema LOPEZ Report Released Date/Time: May 18, 2024 08:43 AM Reporting Lab: [facility] [address] [address] Performing Lab: [facility] [address] [address] [facility] BASIC METABOLIC PANEL (fasting) CARBON DIOXIDE, TOTAL [MOLES/VOLU ME] IN SERUM OR PLASMA 27 meq/L 23 - 31 09/23 Specimen Type: SERUM Comment: notified of corrected report 09/24/24 at 1610 by JED SODIUM reported incorrectly as 133 by [[id number] 31]. Changed to 138 on Sep 24, 2024@17:49 by [[id number] 31]. SODIUM flagged incorrectly as L by [[id number] 31]. Changed to normal on Sep 24, 2024@17:49 by [[id number] 31]. POTASSIUM reported incorrectly as 4.6 by [[id number] 31]. Changed to 4.8 on Sep 24, 2024@17:49 by [[id number] 31]. CHLORIDE reported incorrectly as 102 by [[id number] 31]. Changed to 105 on Sep 24, 2024@17:49 by [[id number] 31]. Ordering Provider: Rema LOPEZ Report Released Date/Time: May 18, 2024 08:43 AM Reporting Lab: [address] [address] Performing Lab: [address] [address] [facility] BASIC METABOLIC PANEL (fasting) CALCIUM [MASS/VOLUM E] IN SERUM OR PLASMA 8.5 mg/dL 8.8 - 10 09/23 L Specimen Type: SERUM Comment: notified of corrected report 09/24/24 at 1610 by JED SODIUM reported incorrectly as 133 by [[id number] 31]. Changed to 138 on Sep 24, 2024@17:49 by [[id number] 31]. SODIUM flagged incorrectly as L by [[id number] 31]. Changed to normal on Sep 24, 2024@17:49 by [[id number] 31]. POTASSIUM reported incorrectly as 4.6 by [[id number] 31]. Changed to 4.8 on Sep 24, 2024@17:49 by [[id number] 31]. CHLORIDE reported incorrectly as 102 by [[id number] 31]. Changed to 105 on Sep 24, 2024@17:49 by [[id number] 31]. Ordering Provider: Rema LOPEZ Report Released Date/Time: May 18, 2024 08:43 AM Reporting Lab: [facility] [address] [address] Performing Lab: [facility] [address] [address] [facility] BASIC METABOLIC PANEL (fasting) CREATININE [MASS/VOLUM E] IN SERUM OR PLASMA 0.98 mg/dL 0.72 - 1.25 09/23 Specimen Type: SERUM Comment: notified of corrected report 09/24/24 at 1610 by JED SODIUM reported incorrectly as 133 by [[id number] 31]. Changed to 138 on Sep 24, 2024@17:49 by [[id number] 31]. SODIUM flagged incorrectly as L by [[id number] 31]. Changed to normal on Sep 24, 2024@17:49 by [[id number] 31]. POTASSIUM reported incorrectly as 4.6 by [[id number] 31]. Changed to 4.8 on Sep 24, 2024@17:49 by [[id number] 31]. CHLORIDE reported incorrectly as 102 by [[id number] 31]. Changed to 105 on Sep 24, 2024@17:49 by [[id number] 31]. Ordering Provider: Rema LOPEZ Report Released Date/Time: May 18, 2024 08:43 AM Reporting Lab: [facility] [address] [address] Performing Lab: [address] [address] [facility] BASIC METABOLIC PANEL (fasting) GLOMERULAR FILTRATION RATE/1.73 SQ M.PREDICTED [VOLUME RATE/AREA] IN SERUM, PLASMA OR BLOOD BY CREATININE- BASED FORMULA (CKD-EPI 2020) 77 mL/min 60 09/23 Specimen Type: SERUM Comment: notified of corrected report 09/24/24 at 1610 by JED SODIUM reported incorrectly as 133 by [[id number] 31]. Changed to 138 on Sep 24, 2024@17:49 by [[id number] 31]. SODIUM flagged incorrectly as L by [[id number] 31]. Changed to normal on Sep 24, 2024@17:49 by [[id number] 31]. POTASSIUM reported incorrectly as 4.6 by [[id number] 31]. Changed to 4.8 on Sep 24, 2024@17:49 by [[id number] 31]. CHLORIDE reported incorrectly as 102 by [[id number] 31]. Changed to 105 on Sep 24, 2024@17:49 by [[id number] 31]. Ordering Provider: Rema LOPEZ Report Released Date/Time: May 18, 2024 08:43 AM Reporting Lab: [facility] [address] [address] Performing Lab: [facility] [address] [address] [facility] LIVER FUNCTION PROTEIN [MASS/VOLUM E] IN SERUM OR PLASMA 7.1 g/dL 6.4 - 8.3 09/23 Specimen Type: SERUM Comment: notified of corrected report 09/24/24 at 1610 by JED SODIUM reported incorrectly as 133 by [[id number] 31]. Changed to 138 on Sep 24, 2024@17:49 by [[id number] 31]. SODIUM flagged incorrectly as L by [[id number] 31]. Changed to normal on Sep 24, 2024@17:49 by [[id number] 31]. POTASSIUM reported incorrectly as 4.6 by [[id number] 31]. Changed to 4.8 on Sep 24, 2024@17:49 by [[id number] 31]. CHLORIDE reported incorrectly as 102 by [[id number] 31]. Changed to 105 on Sep 24, 2024@17:49 by [[id number] 31]. Ordering Provider: Rema LOPEZ Report Released Date/Time: May 18, 2024 08:43 AM Reporting Lab: [facility] [address] [address] Performing Lab: [facility] [address] [address] [facility] LIVER FUNCTION ALBUMIN [MASS/VOLUM E] IN SERUM OR PLASMA BY BROMOCRESOL PURPLE (BCP) DYE BINDING METHOD 4.1 g/dL 3.2 - 4.6 09/23 Specimen Type: SERUM Comment: notified of corrected report 09/24/24 at 1610 by JED SODIUM reported incorrectly as 133 by [[id number] 31]. Changed to 138 on Sep 24, 2024@17:49 by [[id number] 31]. SODIUM flagged incorrectly as L by [[id number] 31]. Changed to normal on Sep 24, 2024@17:49 by [[id number] 31]. POTASSIUM reported incorrectly as 4.6 by [[id number] 31]. Changed to 4.8 on Sep 24, 2024@17:49 by [[id number] 31]. CHLORIDE reported incorrectly as 102 by [[id number] 31]. Changed to 105 on Sep 24, 2024@17:49 by [[id number] 31]. Ordering Provider: Rema LOPEZ Report Released Date/Time: May 18, 2024 08:43 AM Reporting Lab: [facility] [address] [address] Performing Lab: [facility] [address] [address] [facility] LIVER FUNCTION ALKALINE PHOSPHATASE [ENZYMATIC ACTIVITY/VO LUME] IN SERUM OR PLASMA 56 U/L 40 - 150 09/23 Specimen Type: SERUM Comment: notified of corrected report 09/24/24 at 1610 by JED SODIUM reported incorrectly as 133 by [[id number] 31]. Changed to 138 on Sep 24, 2024@17:49 by [[id number] 31]. SODIUM flagged incorrectly as L by [[id number] 31]. Changed to normal on Sep 24, 2024@17:49 by [[id number] 31]. POTASSIUM reported incorrectly as 4.6 by [[id number] 31]. Changed to 4.8 on Sep 24, 2024@17:49 by [[id number] 31]. CHLORIDE reported incorrectly as 102 by [[id number] 31]. Changed to 105 on Sep 24, 2024@17:49 by [[id number] 31]. Ordering Provider: Rema LOPEZ Report Released Date/Time: May 18, 2024 08:43 AM Reporting Lab: [facility] [address] [address] Performing Lab: [facility] [address] [address] [facility] LIVER FUNCTION ASPARTATE AMINOTRANSF ERASE [ENZYMATIC ACTIVITY/VO LUME] IN SERUM OR PLASMA BY WITH P-5'-P 20 U/L 5 - 34 09/23 Specimen Type: SERUM Comment: notified of corrected report 09/24/24 at 1610 by JED SODIUM reported incorrectly as 133 by [[id number] 31]. Changed to 138 on Sep 24, 2024@17:49 by [[id number] 31]. SODIUM flagged incorrectly as L by [[id number] 31]. Changed to normal on Sep 24, 2024@17:49 by [[id number] 31]. POTASSIUM reported incorrectly as 4.6 by [[id number] 31]. Changed to 4.8 on Sep 24, 2024@17:49 by [[id number] 31]. CHLORIDE reported incorrectly as 102 by [[id number] 31]. Changed to 105 on Sep 24, 2024@17:49 by [[id number] 31]. Ordering Provider: Rema LOPEZ Report Released Date/Time: May 18, 2024 08:43 AM Reporting Lab: [facility] [place] [facility] [address] [facility] [facility] [address] Performing Lab: [facility] [place] [address] [address] [facility] [place] [facility] LIVER FUNCTION ALANINE AMINOTRANSF ERASE [ENZYMATIC ACTIVITY/VO LUME] IN SERUM OR PLASMA BY WITH P-5'-P 18 U/L 0 - 55 09/23 Specimen Type: SERUM Comment: notified of corrected report 09/24/24 at 1610 by JED SODIUM reported incorrectly as 133 by [[id number] 31]. Changed to 138 on Sep 24, 2024@17:49 by [[id number] 31]. SODIUM flagged incorrectly as L by [[id number] 31]. Changed to normal on Sep 24, 2024@17:49 by [[id number] 31]. POTASSIUM reported incorrectly as 4.6 by [[id number] 31]. Changed to 4.8 on Sep 24, 2024@17:49 by [[id number] 31]. CHLORIDE reported incorrectly as 102 by [[id number] 31]. Changed to 105 on Sep 24, 2024@17:49 by [[id number] 31]. Ordering Provider: Rema LOPEZ Report Released Date/Time: May 18, 2024 08:43 AM Reporting Lab: [facility] [place] [address] [address] Performing Lab: [facility] [place] [address] [address] [facility] LIVER FUNCTION BILIRUBIN.T OTAL [MASS/VOLUM E] IN SERUM OR PLASMA 0.4 mg/dL 0.2 - 1.2 09/23 Specimen Type: SERUM Comment: notified of corrected report 09/24/24 at 1610 by JED SODIUM reported incorrectly as 133 by [[id number] 31]. Changed to 138 on Sep 24, 2024@17:49 by [[id number] 31]. SODIUM flagged incorrectly as L by [[id number] 31]. Changed to normal on Sep 24, 2024@17:49 by [[id number] 31]. POTASSIUM reported incorrectly as 4.6 by [[id number] 31]. Changed to 4.8 on Sep 24, 2024@17:49 by [[id number] 31]. CHLORIDE reported incorrectly as 102 by [[id number] 31]. Changed to 105 on Sep 24, 2024@17:49 by [[id number] 31]. Ordering Provider: Rema LOPEZ Report Released Date/Time: May 18, 2024 08:43 AM Reporting Lab: [facility] [place] [facility] [address] [address] Performing Lab: [facility] [place] [facility] [address] [address] [facility] [place] [facility] Vital Signs Combined list of inpatient and outpatient Vital Signs from Department of Defense and Veterans Affairs, ranging from 12 months to all on record, depending upon the facility. Vital Sign Value Date Comments Source SYSTOLIC BLOOD PRESSURE 120 09/29/19 25 08:19:02 [facility] [place] [facility] DIASTOLIC BLOOD PRESSURE 70 025 08:19:02 [facility] [place] [facility] PULSE OXIMETRY 99 % 09/28/2024 08:19:02 [facility] [place] [facility] WEIGHT 211 09/28/2024 08:19:02 [facility] [place] [facility] BMI 31 kg/m2 09/28/2024 08:19:02 [facility] [place] [facility] PAIN 0 09/28/2024 08:19:02 [facility] [place] [facility] TEMPERATURE 98.2 09/28/2024 08:19:02 [facility] [place] [facility] PULSE 69 09/28/2024 08:19:02 [facility] [place] [facility] RESPIRATION 16 09/28/2024 08:19:02 [facility] [place] [facility] SYSTOLIC BLOOD PRESSURE 130 07/24/19 25 09:20:35 [...] 05/18/2024 07:58:05 [facility] Encounters Combined [...] Source [facility] HEARING AID REPAIR/MOD IFYING [id number] Diagnos is: ICD-10- CM Z46.1 Encount er for fitting and adjustm ent of hearing aid SENIORZHOU 05/12 [facility] EXERCISE CLASS [id number] Diagnos is: ICD-10- CM Z72.3 Lack of physica l exercAG James 05/12 [facility] EXERCISE CLASS [id number] Diagnos is: ICD-10- CM Z72.3 Lack of physica l exercWYATT Petersen 05/14 [facility] EXERCISE CLASS [id number] Diagnos is: ICD-10- CM Z72.3 Lack of physica l exercis e MANDO DANG 05/15 [facility] EXERCISE CLASS [id number] [id number] Diagnos is: ICD-10- CM Z72.3 Lack of physica l exercis e AG FERNANDEZ M 05/18 [facility] THERAPEUTI C EXERCISES [id number] [id number] Diagnos is: ICD-10- CM M75.20 Bicipit al tendini tis, unspeci fied shoulde r MACHON,AMY LIE E 05/18 [facility] EXERCISE CLASS [id number] [id number] Diagnos is: ICD-10- CM Z72.3 Lack of physica l exercis e Carlos PARIS 05/20 [facility] Outpatient Encounter [id number] 05/20 [facility] EXERCISE CLASS [id number] Diagnos is: ICD-10- CM Z72.3 Lack of physica l exercis e AG FERNANDEZ M 05/22 [facility] EXERCISE CLASS [id number] [id number] Diagnos is: ICD-10- CM Z72.3 Lack of physica l exercis e AG FERNANDEZ 05/25 [facility] EXERCISE CLASS [id number] [id number] Diagnos is: ICD-10- CM Z72.3 Lack of physica l exercis e MANDO DANG 05/27 [facility] EXERCISE CLASS [id number] [id number] Diagnos is: ICD-10- CM Z72.3 Lack of physica l exercis e AG FERNANDEZ M 06/01 [facility] EXERCISE CLASS [id number] [id number] Diagnos is: ICD-10- CM Z72.3 Lack of physica l exercis e Carlos PARIS CR 06/03 [facility] EXERCISE CLASS [id number] Diagnos is: ICD-10- CM Z72.3 Lack of physica l exercis e AG FERNANDEZ M 06/05 [facility] EXERCISE CLASS [id number] [id number] Diagnos is: ICD-10- CM Z72.3 Lack of physica l exercis e AG FERNANDEZ M 06/08 [facility] EXERCISE CLASS [id number] Diagnos is: ICD-10- CM Z72.3 Lack of physica l exercis e Carlos PARIS CR 06/10 [facility] EXERCISE CLASS [id number] [id number] Diagnos is: ICD-10- CM Z72.3 Lack of physica l exercis e AG FERNANDEZ M 06/12 [facility] EXERCISE CLASS [id number] [id number] Diagnos is: ICD-10- CM Z72.3 Lack of physica l exercis e AG FERNANDEZ 06/15 [facility] [place] EXERCISE CLASS [id number] [id number] Diagnos is: ICD-10- CM Z72.3 Lack of physica l exercis Carlos Mcgregor 06/17 [facility] EXERCISE CLASS [id number] [id number] Diagnos is: ICD-10- CM Z72.3 Lack of physica l exercis AG Sandy 06/19 [facility] RPR&REFITG SPECT XCP APHAKIA [id number] [id number] Diagnos is: ICD-10- CM Z46.0 Encount er for fit/adj st of spectac les and contact lenses EDWARD,A PHILIPPE J 06/19 [facility] EXERCISE CLASS [id number] [id number] Diagnos is: ICD-10- CM Z72.3 Lack of physica l exercis Carlos Mcgregor 06/22 [facility] EXERCISE CLASS [id number] [id number] Diagnos is: ICD-10- CM Z72.3 Lack of physica l exercis Carlos Mcgregor 06/24 [facility] EXERCISE CLASS [id number] Diagnos is: ICD-10- CM Z72.3 Lack of physica l exercis AG Sandy 06/26 [facility] Out[facility] Encounter [id number] 06/29 [facility] En[facility] [id number] 06/29 [facility] COLLJ & INTERPJ DATA EA 30 D [id number] [id number] Diagnos is: ICD-10- CM G47.30 Sleep apnea, unspeci fied ST AMANT,KELLY E P 07/01 [facility] Out[facility] En[facility] [id number] 07/07 [facility] Out[facility] Encounter [id number] 07/07 [facility] EXERCISE CLASS [id number] [id number] Diagnos is: ICD-10- CM Z72.3 Lack of physica l exercis e AG FERNANDEZ 07/10 [facility] TUBING WITH HEATING ELEMENT [id number] [id number] Diagnos is: ICD-10- CM G47.30 Sleep apnea, unspeci fied ST AMANT,KELLY E P 07/13 [facility] En[facility] [id number] DILAN LOPEZ 07/13 [facility] OFFICE O/P EST LOW 20 MIN [id number] Diagnos is: ICD-10- CM L03.90 Celluli tis, unspeci fied DILAN LOPEZ 07/14 [facility] EXERCISE CLASS [id number] [id number] Diagnos is: ICD-10- CM Z72.3 Lack of physica l exercis Carlos Mcgregor 07/15 [facility] OFF/OP EST JULY X REQ PHY/QHP [id number] [id number] Diagnos is: ICD-10- CM L03.90 Celluli tis, unspeci Edward Cade 07/16 [facility] OFFICE O/P NEW HI 60 MIN [id number] [id number] Dahiana ANNA 07/16 [facility] EXERCISE CLASS [id number] [id number] Diagnos is: ICD-10- CM Z72.3 Lack of physica l exercis e AG FERNANDEZ M 07/17 [facility] EXERCISE CLASS [id number] [id number] Diagnos is: ICD-10- CM Z72.3 Lack of physica l exercis e AG FERNANDEZ M 07/20 [facility] EXERCISE CLASS [id number] [id number] Diagnos is: ICD-10- CM Z72.3 Lack of physica l exercis Carlos Mcgregor 07/22 [facility] EXERCISE CLASS [id number] [id number] Diagnos is: ICD-10- CM Z72.3 Lack of physica l exercis e AG FERNANDEZ M 07/24 [facility] EXERCISE CLASS [id number] [id number] Diagnos is: ICD-10- CM Z72.3 Lack of physica l exercis e AG FERNANDEZ M 07/27 [facility] OFF/OP EST MAY X REQ PHY/QHP [id number] [id number] Diagnos is: ICD-10- CM Z04.9 Encount er for examina tion and observa tion for unsp reason Edward ZHOU 07/28 [facility] EXERCISE CLASS [id number] [id number] Diagnos is: ICD-10- CM Z72.3 Lack of physica l exercis e Carlos PARIS 07/29 [facility] EXERCISE CLASS [id number] [id number] Diagnos is: ICD-10- CM Z72.3 Lack of physica l exercis e WYATT SHIRLEY 07/31 [facility] Outpatient Encounter [id number] 08/01 [facility] INTRM OPH EXAM EST PATIENT [id number] Diagnos is: ICD-10- CM H40.113 1 Primary open-an gle glaucom a, bilater al, mild stage MUIR,LACE Y J 08/04 [facility] EXTENDED VISUAL FIELD XM [id number] [id number] Diagnos is: ICD-10- CM H40.113 1 Primary open-an gle glaucom a, bilater al, mild stage MUIR,LACE Y J 08/04 [facility] [place] CMPTR OPHTH IMG OPTIC NERVE [id number] [id number] Diagnos is: ICD-10- CM H40.113 1 Primary open-an gle glaucom a, bilater al, mild stage MUIR,LACE Y J 08/04 [facility] FIT SPECTACLES MULTIFOCAL [id number] Diagnos is: ICD-10- CM Z46.0 Encount er for fit/adj st of spectac les and contact lenses MUIR,LACE Y J 08/04 [facility] EXERCISE CLASS [id number] Diagnos is: ICD-10- CM Z72.3 Lack of physica l exercis Carlos Mcgregor CR 08/05 [facility] OFFICE O/P EST HI 40 MIN [id number] Diagnos is: ICD-10- CM M75.102 Unsp rotatr- cuff tear/ru ptr of left shoulde r, not trauma LISA LOPEZ [facility] 08/11 [facility] Outpatient Encounter [id number] 08/11 [facility] EXERCISE CLASS [id number] Diagnos is: ICD-10- CM Z72.3 Lack of physica l exercis Carlos Mcgregor CR 08/12 [facility] EXERCISE CLASS [id number] Diagnos is: ICD-10- CM Z72.3 Lack of physica l exercis WYATT Velázquez 08/14 [facility] Out[facility] Encounter [id number] Carlos OLIVIER 08/17 [facility] EXERCISE CLASS [id number] Diagnos is: ICD-10- CM Z72.3 Lack of physica l exercis Carlos Mcgregor 08/17 [facility] EXERCISE CLASS [id number] Diagnos is: ICD-10- CM Z72.3 Lack of physica l exercis Carlos Mcgregor 08/19 [facility] RPR&REFITG SPECT XCP APHAKIA [id number] Diagnos is: ICD-10- CM Z46.0 Encount er for fit/adj st of spectac les and contact lenses RADHA ARIAS 08/19 [facility] EXERCISE CLASS [id number] Diagnos is: ICD-10- CM Z72.3 Lack of physica l exercis WYATT Velázquez 08/21 [facility] RPR&REFITG SPECT XCP APHAKIA [id number] Diagnos is: ICD-10- CM Z46.0 Encount er for fit/adj st of spectac les and contact lenses Noreen LEON 08/21 [facility] EXERCISE CLASS [id number] Diagnos is: ICD-10- CM Z72.3 Lack of physica l exercis e AG FERNANDEZ M 08/24 [facility] Outpatient Encounter [id number] Edward ZHOU 08/26 [facility] EXERCISE CLASS [id number] Diagnos is: ICD-10- CM Z72.3 Lack of physica l exercis e Carlos PARIS 08/26 [facility] EXERCISE CLASS [id number] Diagnos is: ICD-10- CM Z72.3 Lack of physica l exercis e AG FERNANDEZ M 08/28 [facility] EXERCISE CLASS [id number] Diagnos is: ICD-10- CM Z72.3 Lack of physica l exercis e AG FERNANDEZ M 08/31 [facility] EXERCISE CLASS [id number] Diagnos is: ICD-10- CM Z72.3 Lack of physica l exercis e WYATT SHIRLEY 09/04 [facility] [facility] EXERCISE CLASS [id number] Diagnos is: ICD-10- CM Z72.3 Lack of physica l exercis e Carlos PARIS 09/07 [facility] EXERCISE CLASS [id number] Diagnos is: ICD-10- CM Z72.3 Lack of physica l exercis Carlos Mcgregor CR 09/09 [facility] EXERCISE CLASS [id number] Diagnos is: ICD-10- CM Z72.3 Lack of physica l exercis e WYATT SHIRLEY 09/11 [facility] THERAPEUTI C EXERCISES [id number] Diagnos is: ICD-10- CM M48.07 Spinal stenosi s, lumbosa cral region WYATT SHIRLEY 09/14 [facility] EXERCISE CLASS [id number] Diagnos is: ICD-10- CM Z72.3 Lack of physica l exercis Carlos Mcgregor CR 09/28 [facility] EXERCISE CLASS [id number] Diagnos is: ICD-10- CM Z72.3 Lack of physica l exercis Carlos Mcgregor CR 09/30 [facility] EXERCISE CLASS [id number] Diagnos is: ICD-10- CM Z72.3 Lack of physica l exercis Carlos Mcgregor CR 10/02 [facility] THERAPEUTI C EXERCISES [id number] Diagnos is: ICD-10- CM M48.07 Spinal stenosi s, lumbosa cral region WYATT SHIRLEY 10/05 [facility] EXERCISE CLASS [id number] 1. Diagnos is: ICD-10- CM Z72.3 Lack of physica l exercis e AG FERNANDEZ 10/05 [facility] EXERCISE CLASS [id number] Diagnos is: ICD-10- CM Z72.3 Lack of physica l exercis e Carlos PARIS 10/07 [facility] HEARING AID REPAIR/MOD IFYING [id number] 1. Diagnos is: ICD-10- CM Z46.1 Encount er for fitting and adjustm ent of hearing aid ALEXIA OMER 10/07 [facility] THERAPEUTI C EXERCISES [id number] Diagnos is: ICD-10- CM M48.07 Spinal stenosi s, lumbosa cral region WYATT SHIRLEY 10/12 [facility] EXERCISE CLASS [id number] 1. Diagnos is: ICD-10- CM Z72.3 Lack of physica l exercis e REBECCAAG Gonzalez 10/12 [facility] EXERCISE CLASS [id number] Diagnos is: ICD-10- CM Z72.3 Lack of physica l exercis e Carlos PARIS 10/14 [facility] EXERCISE CLASS [id number] Diagnos is: ICD-10- CM Z72.3 Lack of physica l exercis e AG FERNANDEZ 10/16 [facility] EXERCISE CLASS [id number] Diagnos is: ICD-10- CM Z72.3 Lack of physica l exercis e Carlos PARIS 11/06 [facility] MANUAL THERAPY 1/ [place] [id number] Diagnos is: ICD-10- CM M48.07 Spinal stenosi s, lumbosa cral region WYATT SHIRLEY 11/09 [facility] OFFICE O/P EST MOD 30 MIN [id number] Diagnos is: ICD-10- CM M54.16 Radicul opathy, lumbar region Dahiana ANNA 11/09 [facility] EXERCISE CLASS [id number] 1. Diagnos is: ICD-10- CM Z72.3 Lack of physica l exercis e AG FERNANDEZ M 11/09 [facility] OFFICE O/P EST LOW 20 MIN 02501-0.63 1. Diagnos is: ICD-10- CM I48.91 Unspeci fied atrial fibrill ation DAVIDDILAN MARTINEZ Ravi 11/10 [facility] EXERCISE CLASS [id number] 1. Diagnos is: ICD-10- CM Z72.3 Lack of physica l exercis e Carlos PARIS 11/11 [facility] EXERCISE CLASS [id number] Diagnos is: ICD-10- CM Z72.3 Lack of physica l exercis e AG FERNANDEZ M 11/13 [facility] EXERCISE CLASS [id number] Diagnos is: ICD-10- CM Z72.3 Lack of physica l exercis e Carlos PARIS 11/18 [facility] Outpatient Encounter [id number]/19 [facility] EXERCISE CLASS [id number] 1. Diagnos is: ICD-10- CM Z72.3 Lack of physica l exercis e MANDO DANG 11/23 [facility] EXERCISE CLASS [id number] Diagnos is: ICD-10- CM Z72.3 Lack of physica l exercis e AG FERNANDEZ 11/25 [facility] EXERCISE CLASS [id number] Diagnos is: ICD-10- CM Z72.3 Lack of physica l exercis e AG FERNANDEZ 11/27 [facility] EXERCISE CLASS [id number] [id number] Diagnos is: ICD-10- CM Z72.3 Lack of physica l exercis e AG FERNANDEZ 11/30 [facility] EXERCISE CLASS [id number] Diagnos is: ICD-10- CM Z72.3 Lack of physica l exercis e Carlos PARIS 12/02 [facility] MANUAL THERAPY 1/ [place] [id number] Diagnos is: ICD-10- CM M48.07 Spinal stenosi s, lumbosa cral region WYATT SHIRLEY Epi 12/03 [facility] EXERCISE CLASS [id number] [id number] Diagnos is: ICD-10- CM Z72.3 Lack of physica l exercis e AG FERNANDEZ 12/04 [facility] EXERCISE CLASS [id number] 1. Diagnos is: ICD-10- CM Z72.3 Lack of physica l exercis e AG FERNANDEZ 12/07 [facility] OFFICE O/P EST HI 40 MIN 05465-9.63 1. Diagnos is: ICD-10- CM M54.16 Radicul opathy, lumbar region LOPEZLISAONG ROBSON 12/09 [facility] Outpatient Encounter [id number] 1.12/09 [facility] Out[facility] Encounter [id number] 1[facility]12/09 [facility] Encounter [id number] 1.12/10 [facility] EXERCISE CLASS [id number] [id number] Diagnos is: ICD-10- CM Z72.3 Lack of physica l exercis e AG FERNANDEZ 12/11 [facility] EXERCISE CLASS [id number] Diagnos is: ICD-10- CM Z72.3 Lack of physica l exercis e YESENIAAG DOCKERY 12/14 [facility] EXERCISE CLASS [id number] 1. Diagnos is: ICD-10- CM Z72.3 Lack of physica l exercis e Carlos PARIS 12/16 [facility] Out[facility] Encounter [id number] 12/17 [facility] OFF/OP EST JULY X REQ PHY/QHP [id number] [id number] Diagnos is: ICD-10- CM I10 Essenti al (primar y) hyperte nsion DUNCAN SHIELDS 12/17 [facility] Out[facility] Encounter [id number] 12/18 [facility] EXERCISE CLASS [id number] [id number] Diagnos is: ICD-10- CM Z72.3 Lack of physica l exercis e WYATT SHIRLEY 12/18 [facility] SELF CARE MNGMENT TRAINING [id number] [id number] Diagnos is: ICD-10- CM M48.07 Spinal stenosi s, lumbosa cral region WYATT SHIRLEY 12/21 [facility] Out[facility] Encounter [id number] 12/24 [facility] EXERCISE CLASS [id number] [id number] Diagnos is: ICD-10- CM Z72.3 Lack of physica l exercis e Carlos PARISIN 01/06 [facility] MANUAL THERAPY [place] [id number] Diagnos is: ICD-10- CM M48.07 Spinal stenosi s, lumbosa cral region WYATT SHIRLEY 01/07 [facility] OFF/OP EST JULY X REQ PHY/QHP [id number] [id number] Diagnos is: ICD-10- CM I11.9 Hyperte nsive heart disease without heart failure Edward ZHOU 01/07 [facility] Outpatient Encounter [id number]/08 [facility] EXERCISE CLASS [id number] Diagnos is: ICD-10- CM Z72.3 Lack of physica l exercis e AG FERNANDEZ 01/08 [facility] EXERCISE CLASS [id number] Diagnos is: ICD-10- CM Z72.3 Lack of physica l exercis e AG FERNANDEZ 01/11 [facility] QNHP OL DIG ASSMT&MGMT 5-10 [id number] 1. Diagnos is: ICD-10- CM Z04.89 Encount er for examina tion and observa tion for oth reasons RJ ANDRE 01/11 [facility] EXERCISE CLASS [id number] Diagnos is: ICD-10- CM Z72.3 Lack of physica l exercis e Carlos PARIS 01/13 [facility] EXERCISE CLASS [id number] [id number] Diagnos is: ICD-10- CM Z72.3 Lack of physica l exercis e WYATT SHIRLEY 01/15 [facility] EXERCISE CLASS [id number] [id number] Diagnos is: ICD-10- CM Z72.3 Lack of physica l exercis e AG FERNANDEZ 01/18 [facility] EXERCISE CLASS [id number] [id number] Diagnos is: ICD-10- CM Z72.3 Lack of physica l exercis e WYATT SHIRLEY 01/20 [facility] Out[facility] Encounter [id number] 01/22 [facility] Outpatient Encounter [id number] [id number] 49 01/28 [facility] EXERCISE CLASS [id number] [id number] Diagnos is: ICD-10- CM Z72.3 Lack of physica l exercis WYATT Velázquez 01/29 [facility] EXERCISE CLASS [id number] [id number] Diagnos is: ICD-10- CM Z72.3 Lack of physica l exercis e AG FERNANDEZ 02/01 [facility] MANUAL THERAPY 1/> [place] [id number] [id number] Diagnos is: ICD-10- CM M48.07 Spinal stenosi s, lumbosa cral region WYATT SHIRLEY 02/01 [facility] Out[facility] Encounter [id number] JANELL,[facility] ISTOPHER E 02/01 [facility] EXERCISE CLASS [id number] [id number] Diagnos is: ICD-10- CM Z72.3 Lack of physica l exercis e Carlos PARIS CR 02/03 [facility] EXERCISE CLASS [id number] [id number] Diagnos is: ICD-10- CM Z72.3 Lack of physica l exercis e AG FERNANDEZ 02/05 [facility] EXERCISE CLASS [id number] [id number] Diagnos is: ICD-10- CM Z72.3 Lack of physica l exercis e AG FERNANDEZ 02/08 [facility] EXERCISE CLASS [id number] Diagnos is: ICD-10- CM Z72.3 Lack of physica l exercis Carlos McgregorIN 02/10 [facility] EXERCISE CLASS [id number] [id number] Diagnos is: ICD-10- CM Z72.3 Lack of physica l exercis e WAYTT SHIRLEY 02/12 [facility] EXERCISE CLASS [id number] [id number] Diagnos is: ICD-10- CM Z72.3 Lack of physica l exercis e WYATT SHIRLEY 02/24 [facility] THERAPEUTI C EXERCISES [id number] . Diagnos is: ICD-10- CM M48.07 Spinal stenosi s, lumbosa cral region WYATT SHIRLEY 02/25 [facility] EXERCISE CLASS [id number] . Diagnos is: ICD-10- CM Z72.3 Lack of physica l exercis e AG FERNANDEZ M 02/26 [facility] EXERCISE CLASS [id number] . Diagnos is: ICD-10- CM Z72.3 Lack of physica l exercis e AG FERNANDEZ M 03/01 [facility] EXERCISE CLASS [id number] [id number] Diagnos is: ICD-10- CM Z72.3 Lack of physica l exercis e Carlos PARIS 03/03 [facility] EXERCISE CLASS [id number] [id number] Diagnos is: ICD-10- CM Z72.3 Lack of physica l exercis e AG FERNANDEZ M 03/05 [facility] EXERCISE CLASS [id number] [id number] Diagnos is: ICD-10- CM Z72.3 Lack of physica l exercis e WYATT SHIRLEY 03/12 [facility] EXERCISE CLASS [id number] [id number] Diagnos is: ICD-10- CM Z72.3 Lack of physica l exercis e AG FERNANDEZ 03/19 [facility] OFF/OP EST MAY X REQ PHY/QHP [id number] [id number] Diagnos is: ICD-10- CM R30.0 Dysuria Edward ZHOUGaurang Carlos 03/22 [facility] OFFICE O/P EST MOD 30 MIN 31619-4.63 1. Diagnos is: ICD-10- CM R82.81 Pyuria ARMAND LION 03/22 [facility] EXERCISE CLASS [id number] 1. Diagnos is: ICD-10- CM Z72.3 Lack of physica l exercis e Carlos PARIS 03/24 [facility] OFFICE O/P EST SF 10 MIN [id number] Diagnos is: ICD-10- CM Z72.3 Lack of physica l exercis e AG FERNANDEZ 03/26 [facility] OFFICE O/P EST HI 40 MIN [id number] [id number] Diagnos is: ICD-10- CM M48.07 Spinal stenosi s, lumbosa cral region LOPEZ,LISA BRITTNEY THI 04/14 [facility] EXERCISE CLASS [id number] [id number] Diagnos is: ICD-10- CM Z72.3 Lack of physica l exercis e AG FERNANDEZ 04/16 [facility] Outpatient Encounter [id number] 04/19 [facility] EXERCISE CLASS [id number] [id number] Diagnos is: ICD-10- CM Z72.3 Lack of physica l exercis e Carlos PARIS 04/21 [facility] OFF/OP EST MAY X REQ PHY/QHP [id number] [id number] Diagnos is: ICD-10- CM 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 Edward ZHOU 04/26 [facility] Encounter [id number] 1. 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 SOVEROW,SHAKELE RISTY A 04/27 [facility] EXERCISE CLASS [id number] Diagnos is: ICD-10- CM Z72.3 Lack of physica l exercis e Carlos PARIS 04/28 [facility] UNLISTED PHYSCL MED/REHAB PX [id number] [id number] Diagnos is: ICD-10- CM Z72.3 Lack of physica l exercis e WYATT SHIRLEY 04/30 [facility] EXERCISE CLASS [id number] Diagnos is: ICD-10- CM Z72.3 Lack of physica l exercis e AG FERNANDEZ 04/30 [facility] Outpatient Encounter [id number] Edward ZHOU 05/04 [facility] Out[facility] Encounter [id number] 05/11 [facility] EXERCISE CLASS [id number] [id number] Diagnos is: ICD-10- CM Z72.3 Lack of physica l exercis e WYATT SHIRLEY 05/14 [facility] OFFICE O/P EST MOD 30 MIN [id number] [id number] Diagnos is: ICD-10- CM H40.113 1 Primary open-an gle glaucom a, bilater al, mild stage MUIR,LACE Y J 05/14 [facility] EXERCISE CLASS [id number] [id number] Diagnos is: ICD-10- CM Z72.3 Lack of physica l exercis e YESENIAAG DOCKERY 05/17 [facility] OFFICE O/P EST MOD 30 MIN [id number] [id number] Diagnos is: ICD-10- CM G47.30 Sleep apnea, unspeci DILAN Couch 05/18 [facility] EXERCISE CLASS [id number] [id number] Diagnos is: ICD-10- CM Z72.3 Lack of physica l exercis e REBECCAAG 05/24 [facility] EXERCISE CLASS [id number] [id number] Diagnos is: ICD-10- CM Z72.3 Lack of physica l exercis e Carlos PARIS 05/26 [facility] OFFICE O/P EST HI 40 MIN [id number] [id number] Diagnos is: ICD-10- CM M54.16 Radicul opathy, lumbar region LOPEZ,LISA LUGO THI 05/26 [facility] Out[facility]counter [id number] 05/26 [facility] Out[facility] Encounter [id number] 05/26 [facility] EXERCISE CLASS [id number] [id number] Diagnos is: ICD-10- CM Z72.3 Lack of physica l exercis e Carlos PARISIN 06/02 [facility] OFF/OP EST MAY X REQ PHY/QHP [id number] [id number] Diagnos is: ICD-10- CM I11.9 Hyperte nsive heart disease without heart failure Edward ZHOU 06/03 [facility] EXERCISE CLASS [id number] [id number] Diagnos is: ICD-10- CM Z72.3 Lack of physica l exercis WYATT Velázquez 06/04 [facility] EXERCISE CLASS [id number] [id number] Diagnos is: ICD-10- CM Z72.3 Lack of physica l exercis WYATT Velázquez 06/07 [facility] EXERCISE CLASS [id number] Diagnos is: ICD-10- CM Z72.3 Lack of physica l exercis Carlos Mcgregor 06/09 [facility] EXERCISE CLASS [id number] [id number] Diagnos is: ICD-10- CM Z72.3 Lack of physica l exercis e AG FERNANDEZ 06/11 [facility] Outpatient [facility]counter [id number] 06/11 [facility] EXERCISE CLASS [id number] Diagnos is: ICD-10- CM Z72.3 Lack of physica l exercis e AG FERNANDEZ 06/14 [facility] Out[facility] Encounter [id number] 06/15 [facility] EXERCISE CLASS [id number] Diagnos is: ICD-10- CM Z72.3 Lack of physica l exercis e Carlos PARIS 06/16 [facility] Out[facility] Encounter [id number] 06/17 [facility] EXERCISE CLASS [id number] Diagnos is: ICD-10- CM Z72.3 Lack of physica l exercis e GA FERNANDEZ 06/18 [facility] EXERCISE CLASS [id number] Diagnos is: ICD-10- CM Z72.3 Lack of physica l exercis e AG FERNANDEZ 06/25 [facility] OFF/OP EST MAY X REQ PHY/QHP [id number] Diagnos is: ICD-10- CM Z72.3 Lack of physica l exercis e AG FERNANDEZ 06/28 [facility] EXERCISE CLASS [id number] Diagnos is: ICD-10- CM Z72.3 Lack of physica l exercis Carlos Mcgregor 06/30 [facility] EXERCISE CLASS [id number] Diagnos is: ICD-10- CM Z72.3 Lack of physica l exercis e AG FERNANDEZ 07/02 [facility] EXERCISE CLASS [id number] Diagnos is: ICD-10- CM Z72.3 Lack of physica l exercis e Carlos PARIS CR 07/05 [facility] EXERCISE CLASS [id number] Diagnos is: ICD-10- CM Z72.3 Lack of physica l exercis e Carlos PARIS CR 07/07 [facility] EXERCISE CLASS [id number] Diagnos is: ICD-10- CM Z72.3 Lack of physica l exercis e MANDO DANG 07/09 [facility] EXERCISE CLASS [id number] Diagnos is: ICD-10- CM Z72.3 Lack of physica l exercis e Carlos PARIS CR 07/12 [facility] EXERCISE CLASS [id number] Diagnos is: ICD-10- CM Z72.3 Lack of physica l exercis e Carlos PARIS CR 07/14 [facility] HEARING AID REPAIR/MOD IFYING [id number] Diagnos is: ICD-10- CM Z46.1 Encount er for fitting and adjustm ent of hearing aid ALEXIA OMER 07/14 [facility] EXERCISE CLASS [id number] Diagnos is: ICD-10- CM Z72.3 Lack of physica l exercis e AG FERNANDEZ M 07/16 [facility] EXERCISE CLASS [id number] Diagnos is: ICD-10- CM Z72.3 Lack of physica l exercis AG Sandy M 07/19 [facility] Out[facility] Encounter [id number] 07/23 [facility] OFFICE O/P EST MOD 30 MIN [id number] Diagnos is: ICD-10- CM K61.1 Rectal abscess EPIFANIOVIV DILAN Rodrigues 07/23 [facility] HEARING AID CHECK BINAURAL [id number] Diagnos is: ICD-10- CM Z46.1 Encount er for fitting and adjustm ent of hearing aid ZHOU REDMOND L 07/26 [facility] Outpatient Encounter [id number] 08/04 [facility] EXERCISE CLASS [id number] Diagnos is: ICD-10- CM Z72.3 Lack of physica l exercis luis Carlos PARIS 08/11 [facility] HEARING AID FITTING/CH ECKING [id number] Diagnos is: ICD-10- CM Z46.1 Encount er for fitting and adjustm ent of hearing aid GITA ARIAS 08/11 [facility] EXERCISE CLASS [id number] Diagnos is: ICD-10- CM Z72.3 Lack of physica l exercis e WYATT SHIRLEY 08/13 [facility] EXERCISE CLASS [id number] Diagnos is: ICD-10- CM Z72.3 Lack of physica l exercis e AG FERNANDEZ M 08/16 [facility] ORTHC/PROS TC MGMT SBSQ ENC [id number] Diagnos is: ICD-10- CM M25.569 Pain in unspeci fied knee Carlos PARIS 08/16 [facility] [facility] Outpatient Encounter [id number] 08/17 [facility] EXERCISE CLASS [id number] Diagnos is: ICD-10- CM Z72.3 Lack of physica l exercis e AG FERNANDEZ M 08/18 [facility] EXERCISE CLASS [id number] Diagnos is: ICD-10- CM Z72.3 Lack of physica l exercis e AG FERNANDEZ M 08/20 [facility] EXERCISE CLASS [id number] Diagnos is: ICD-10- CM Z72.3 Lack of physica l exercis e AG FERNANDEZ M 08/23 [facility] EXERCISE CLASS [id number] Diagnos is: ICD-10- CM Z72.3 Lack of physica l exercis Carlos Mcgregor 08/25 [facility] Outpatient Encounter [id number] 09/14 [facility] EXERCISE CLASS [id number] Diagnos is: ICD-10- CM Z72.3 Lack of physica l exercis e AG FERNANDEZ 09/20 [facility] EXERCISE CLASS [id number] Diagnos is: ICD-10- CM Z72.3 Lack of physica l exercis e AG FERNANDEZ 09/27 [facility] OFFICE O/P EST LOW 20 MIN [id number] Diagnos is: ICD-10- CM 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 DILAN LOPEZ 09/28 [facility] EXERCISE CLASS [id number] Diagnos is: ICD-10- CM Z72.3 Lack of physica l exercis Carlos Mcgregor 09/29 [facility] EXERCISE CLASS [id number] Diagnos is: ICD-10- CM Z72.3 Lack of physica l exercis WYATT Velázquez 10/01 [facility] EXERCISE CLASS [id number] Diagnos is: ICD-10- CM Z72.3 Lack of physica l exercis e AG FERNANDEZ M 10/04 [facility] EXERCISE CLASS [id number] Diagnos is: ICD-10- CM Z72.3 Lack of physica l exercis e Carlos PARIS 10/06 [facility] HEARING AID REPAIR/MOD IFYING [id number] Diagnos is: ICD-10- CM Z46.1 Encount er for fitting and adjustm ent of hearing aid CORNELL MEADOWS 10/07 [facility] EXERCISE CLASS [id number] Diagnos is: ICD-10- CM Z72.3 Lack of physica l exercis e AG FERNANDEZ 10/08 [facility] EXERCISE CLASS [id number] Diagnos is: ICD-10- CM Z72.3 Lack of physica l exercis e Carlos PARIS 10/13 [facility] EXERCISE CLASS [id number] Diagnos is: ICD-10- CM Z72.3 Lack of physica l exercis e AG FERNANDEZ M 10/15 [facility] EXERCISE CLASS [id number] Diagnos is: ICD-10- CM Z72.3 Lack of physica l exercis e AG FERNANDEZ M 10/18 [facility] EXERCISE CLASS [id number] Diagnos is: ICD-10- CM Z72.3 Lack of physica l Carlos Larsen 10/20 [facility] Outpatient Encounter [id number] 10/21 [facility] Outpatient Encounter [id number] RYAN MACIEL ISTOPHER E 10/28 [facility] HEARING AID REPAIR/MOD IFYING [id number] Diagnos is: ICD-10- CM Z46.1 Encount er for fitting and adjustm ent of hearing aid ALEXIA OMER 11/03 [facility] Outpatient Encounter [id number] Noreen ALLEN 11/08 [facility] Outpatient Encounter [id number] 11/08 [facility] Social History Combined list of available smoking, tobacco, and other social history from Department of Defense and Veterans Affairs facilities. Social History Type Response Date Comment Source Tobacco smoking status [facility] VA-TOBACCO NEVER USED 11/11/2023 [facility] History of tobacco use VA-TOBACCO QUIT 15 YRS OR MORE 09/27/2022 [facility] History of tobacco use VA-TOBACCO FORMER USER 08/30/2021 [facility] History of tobacco use VA-TOBACCO FORMER USER 08/07/2020 [facility] History of tobacco use VA-TOBACCO FORMER USER 07/12/2019 [facility] History of tobacco use VA-TOBACCO FORMER USER 07/03/2018 [facility] History of tobacco use QUIT TOBACCO USE > 7 YEARS AGO 09/01/2017 [facility] History of tobacco use QUIT TOBACCO USE > 7 YEARS AGO 08/29/2016 [facility] History of tobacco use QUIT TOBACCO USE > 7 YEARS AGO 08/15/2015 [facility] History of tobacco use QUIT TOBACCO USE > 7 YEARS AGO 02/20/2007 quit 20 years ago [facility] [facility] History of tobacco use NON TOBACCO USER - QUIT >7 YEARS AGO 01/22/2006 [facility] Plan of Care List of future care activities from [facility] facilities. Additional future care activities may be listed in the Assessment and Plan section. Date/Time Care Activity Care Activity Detail Facili ty 12/31/2024 AMBULATORY - MEDICINE AMBULATORY - MEDICI [facility] Advance Directives List of completed, amended, or rescinded Advance Directives on record at [facility] facilities. An actual copy of the Directive is not included. Date Advance Directive Provider Source 12/17/2018 ADVANCE DIRECTIVE LIZ HERNANDEZ [facility] 05/30/2017 ADVANCE DIRECTIVE VICTOR MANUEL [facility] 12/25/2005 ADVANCE DIRECTIVE IRENA OSEI [facility]
--- NOTE | 2024-11-09 12:52 | MHC.OFFVIS ---
Intake Visit Reasons: OV- LT humerus fx f/u Intake Note: Candelario is a 78 year old right hand dominant male who presents today with a sling for his left humerus fx, DOI 10/29/24. Patient reports havign increased pain with his brace and at the crease of his elbow is feeling very sore and raw. Accompanied by: Spouse Allergies bicalutamide Allergy (Mild, Verified 11/09/24 13:01) Unknown Iodinated Contrast Media Allergy (Mild, Verified 11/09/24 13:01) Unknown HPI HPI OV- LT humerus fx f/u: Details: Mr. Brock is an 79-year-old male who presents to the office today for brace refitting. Patient states that the thermal molded proximal humerus brace is rubbing on the skin causing irritation. [facility] Medical History Weak urinary stream Nocturia Metastatic malignant neoplasm to prostate Microscopic hematuria Social History Alcohol intake: never Patient Tobacco Use Status: Never used Tobacco Current occupational status: retired Current occupation: right hand dominant Review of Systems Const All systems reviewed & are unremarkable except as noted in HPI and below Physical Exam Const General: cooperative, healthy appearing and no acute distress Resp Effort & Inspection: normal respiratory effort and able to speak in complete sentences Extrem Other: Left upper extremity significant bruising circumferentially about the humerus. Large hematoma noted over the fracture site. Patient reports deltoid sensation is intact. He is able to flex and extend at the wrist. Able to extend and close all digits. Sensation is reportedly intact at all digits. Radial pulse intact. Psych Appearance: grossly normal Mental Status: mental status grossly normal Attitude: cooperative Assessment & Plan Assessment & Plan (1) Left humeral fracture: Code(s): S42.302A - Unspecified fracture of shaft of humerus, left arm, initial encounter for closed fracture Category: Medical Plan Mr. Brokc is an 79-year-old male who presents to the office today for brace fitting of a left proximal humerus fracture. The thermal molded proximal humerus braces irritating the skin at the elbow. We attempted to try a medium thermal molded brace however this did not provide enough coverage. Therefore, the large thermal molded humeral brace was repeated and remolded to the left upper extremity. Additionally, we used stockinette as a skin barrier and padding. He will follow up at his normally scheduled follow up appointment on 12/02/2024, sooner if needed. Coding Level of Care Code Est Pt Level 3 (27990) Diagnoses Left humeral fracture S42.302A
--- OUTSIDE RECORDS SUMMARY | 2024-11-09 13:25 | XMS_ITS | Encounter Summary ---
Author Organization [facility] Address [address] [facility] [address] [place] [address] Phone Care Team Providers Care Sales Market Leader Name Role Phone Rajendra Edward MD Unavailable Park Leo RN Unavailable [email or web address] Jaylen Oshea MD Unavailable [phone] Denis Gibson Unavailable [phone] Denis Gibson Primary Care Provid er Nany Rowland RN Unavailable [email or web address] Encounter Details Date Type Department Care Team (Late st Contact Info) Description 12/08/2023 Transcribe Orders [facility] Laboratory [address] [address] Rajendra Edward MD [address] [place] [phone] [email or web address]. [place] Screening for prostate cancer (Primary Dx) Social History Tobacco Use Types Packs/Day Years [...] on file documented as of this encounter Plan of Treatment Upcoming Encounters Date Type Department Care Team (Late st Contact Info) Description 11/18/2024 8:30 AM EDT Office Visit [facility] [address] [facility] [address] [place] [address] Rajendra Edward MD [address] [place] [phone] [email or web address] documented as of this encounter Results * PSA (screening) (12/08/2023 10:15 AM EDT) PSA 0.49 0 - 4.00 ng/mL [facility] Comment: Test Methodology Una e801 Patient results determined by assays using different manufacturers or methods may not be comparable. Blood 12/08/2023 10:1 5 AM EDT 12/08/2023 10:32 AM EDT us Rajendra Edward MD LAB BLOOD ORDERABLES Hali daniela Result [facility] [address] [place] [address] documented in this encounter Visit Diagnoses Diagnosis Screening for prostate cancer- Primary Special screening for malignant neoplasm of prostate documented in this encounter Care Teams Sales Market Leader Relationship Specialty Start Date End Date Denis Gibson PA [address] [place] [address] PCP - General Physician It Telecom Technician 07/29/23 Rajendra Edward MD [address] [place] [phone] South@ [email or web address] Primary Oncologist Hematology and Oncology 05/08/15 Park Leo, WANDER [address] [place] [phone] [email or web address] Primary Infusion Nurse 05/08/15 Jaylen Oshea MD [address] [place] [address] [email or web address] Referring Physician 06/01/15 Denis Gibson PA [address] [place] [address] 01/04/19 Nany Rowland, WANDER [address] [place] [address] Paty [email or web address] Nurse Navigator 04/26/24 documented as of this encounter Additional Source Comments The information contained in this document represents components of the legal health record. It is not the complete legal health record.[facility]
--- OUTSIDE RECORDS SUMMARY | 2024-11-09 13:26 | XMS_ITS ---
Author Organization [facility] Address [address] [facility] [address] [place] [address] Phone Care Team Providers Care Orthotic Practitioner Name Role Phone Rajendra Edward MD Unavailable Park Leo RN Unavailable [email or web address] Jaylen Oshea MD Unavailable [phone] Denis Lopez Unavailable [phone] Denis Lopez Primary Care Provid er Nany Rowland RN Unavailable [email or web address] Active Problems Patient Care Coordination No te Formatting of this note migh t be different from the original. 04/26/2024 [place] [facility] Problem Noted Date Diagnosed Date Hx of total hip arthroplasty, left 10/15/2022 Postoperative fever 09/03/2022 Assessment & Plan (09/04/2022 4:23 PM EDT): He developed fever on postop day 0. No focal symptoms. No cough or shortness of breath. No dysuria. Has a known history of recurrent UTIs. Initial UA on admission did not reflex to culture. No antibiotics were started. He developed some confusion with fever and narcotics which has since resolved. Discussed the case with his and daughters. White blood cell count normal, u/bcx ngtd, cxr nl. -Hold off on additional antibiotics at this point as no focal symptoms for infection in the be due to postop inflammation. He did receive perioperative antibiotics over the last 24 hours -Incentive spirometer -Follow-up cultures Paroxysmal atrial fibrillation 09/01/2022 Assessment & Plan (09/02/2022 5:35 PM EDT): AC on abixaban - ON HOLD eva op Rate controled w/o medication Frequency of micturition 08/30/2022 023 Transaminitis 08/30/2022 Assessment & Plan (09/02/2022 5:36 PM EDT): No abd symptoms. Perhaps from tramadol, muscle injury from fall. CT abd pelvis without liver abnormality. 09/01: downtrended Up slightly today. - hold tramadol LFTS in am Leukocytosis 08/30/2022 Assessment & Plan (09/01/2022 4:12 PM EDT): Likely in reaction to fracture. resolved Primary open angle glaucoma (POAG) 01/04/2022 Other psoriasis 01/04/2022 Other and unspecified hyperlipidemia 01/04/2022 Osteoarthritis of knee 01/04/2022 Obesity 01/04/2022 Vertebrogenic low back pain 01/04/2022 Cardiac pacemaker in situ 01/04/2022 Overview (01/04/2022): August 07, 2020 Entered By: DENIS LOPEZ Comment: [email or web address] Product ICM model M301 serial [id number] May,. Bradycardia 01/04/2022 Prostate cancer metastatic to multiple sites Assessment & Plan (09/01/2022 4:12 PM EDT): Follows very closely and consistently with Dr Edward at [facility]. History of prostate cancer with mets to bone s/p Taxotere/Docetaxel in 2016. Most recent bone scan available to me from 2015 without evidence of disease. He was maintained on Luperon for a few years, but since then had elevations in PSA in 2019 prompting initiation of intermittent Degarelix (Firmagon) and more recently recent Zytiga (abiraterone), prednisone (2019) and relugolix (orgovyx). Off orgovyx 01/2022, stopped Zytiga and prednisone 04/2022. Most recent Oncology visit 05/2022, low PSA and testosterone reassuring against disease progression. 08/30: PSA appropriately low 0.12 09/01: CTAP with contrast without e/o bony mets to pelvis Calculus of gallbladder 03/17/2004 Overview (01/04/2022): Apr 17, 2006 Entered By: JJ CARL Comment: 10/20 surgery Hypertension Assessment & Plan (09/02/2022 5:34 PM EDT): BP elevated. Garland Continued. HCTZ held preop. -Will rsume hctz based on post op renal function and po intake -BMP in am Back pain GERD (gastroesophageal reflux disease) Current Treatment and Therapy Plans No current plan information found. Past Treatment and Therapy Plans TREATMENT PLAN Plan Name Start Date Discontinue Date Treatment Medications Discontinue Reason Plan Provider Cycles DOCETAXEL 75 MG/M2 EVERY 3 WEEKS 05/04/2015 08/23/2024 DOCEtaxel (TAXOTERE) IVPB in 250 mL (Doses >85 mg to 199 mg) a. Therapy Complete Rajendra Edward MD 6 of 6 cycles started Resolved Problems Problem Noted Date Diagnosed Date Resolved Date Closed left hip fracture, initial encounter 08/30/2022 10/15/2022 Assessment & Plan (09/04/2022 4:08 PM EDT): Status post left total hip replacement following femoral neck fracture with Dr. Ch on 09/03. Per Ortho Rec, weight-bear as tolerated 09/01 - CT hip to look for e/o bony mets from prostate cancer. NO clear evidence but lytic lesion swre seen in acetabulum and vertebral bodies . O/P NM whole body bone scan recommended to futher evaluate. Case d/w Dr Ch today. -Continue Eliquis -Trial Tylenol for pain due to some postop delirium with narcotics
--- OUTSIDE RECORDS SUMMARY | 2024-11-09 13:26 | XMS_ITS | Encounter Summary ---
Author Organization [facility] Address [address] [facility] [address] [place] [address] Phone Care Team Providers Care Meal Attendant Name Role Phone Rajendra Edward MD Unavailable Park Leo RN Unavailable [email or web address] Jaylen Oshea MD Unavailable [phone] Denis Gibson Unavailable [phone] Denis Gibson Primary Care Provid er Nany Rowland RN Unavailable [email or web address] Encounter Details Date Type Department Care Team (Late st Contact Info) Description 04/12/2024 Transcribe Orders [facility] Laboratory [address] [address] Rajendra Edward MD [address] [place] [phone] Toby [email or web address] [place] Screening for prostate cancer (Primary Dx) [...] Description 11/18/2024 8:30 AM EDT Office Visit [facility] [address] [facility] [address] [place] [address] Rajendra Edward MD [address] [place] [phone] [email or web address] documented as of this encounter Results * PSA (screening) (04/12/2024 9:19 AM EST) PSA 2.27 0 - 4.00 ng/mL [facility] Comment: Test Methodology Una e801 Patient results determined by assays using different manufacturers or methods may not be comparable. Blood 04/12/2024 9:19 AM EST 04/12/2024 9:21 AM EST Rajendra Edward MD LAB BLOOD ORDERABLES Hali l Result [facility] [address] [place] [address] documented in this encounter Visit Diagnoses Diagnosis Screening for prostate cancer- Primary Special screening for malignant neoplasm of prostate documented in this encounter Care Teams Meal Attendant Relationship Specialty Start Date End Date Denis Gibson PA [address] [place] [phone] PCP - General Physician Tab Cutter 07/29/23 Rajendra Edward MD [address] [place] [phone] [email or web address] Primary Oncologist Hematology and Oncology 05/08/15 Park Leo, RN [address] [place] [phone] [email or web address] Primary Infusion Nurse 05/08/15 Jaylen Oshea MD [address] [place] [address] [email or web address] Referring Physician 06/01/15 Denis Gibson PA [address] [place] [address] 01/04/19 Nany Rowland, WANDER [address] [place] [address] Paty [email or web address] Nurse Navigator 04/26/24 documented as of this encounter Additional Source Comments The information contained in this document represents components of the legal health record. It is not the complete legal health record.[facility]
--- OUTSIDE RECORDS SUMMARY | 2024-11-09 13:26 | XMS_ITS | Encounter Summary ---
Author Organization [facility] Address [address] [facility] [address] [place] [address] Phone Care Team Providers Care Patient Ombudsperson Name Role Phone Rajendra Edward MD Unavailable [phone] Park Leo RN Unavailable [email or web address] Jaylen Oshea MD Unavailable [phone] Denis Gibson Unavailable [phone] Denis Gibson Primary Care Provid er Nany Rowland RN Unavailable [email or web address] Encounter Details Date Type Department Care Team (Late st Contact Info) Description 12/04/2023 Transcribe Orders [facility] Laboratory [address] [address] Rajendra Edward MD [address] [place] [phone] [email or web address] Prostate cancer metastatic to multiple sites (Primary Dx) Social History Tobacco Use Types [...] Description 11/18/2024 8:30 AM EDT Office Visit [facility] [address] [address] Rajendra Edward MD [address] [place] [phone] South@ [email or web address] Scheduled Orders Name Type Priority Associated Diagnoses Orde r Schedule CBC and differential Lab Routine Prostate cancer metastatic to multiple sites Expected: 12/04/2023, Expires: 12/03/2024 Comprehensive metabolic panel Lab Routine Prostate cancer metastatic to multiple sites Expected: 12/04/2023, Expires: 12/03/2024 PSA diagnostic (monitoring) Lab Routine Prostate cancer metastatic to multiple sites Expected: 12/04/2023, Expires: 12/03/2024 Testosterone, total Lab Routine Prostate cancer metastatic to multiple sites Expected: 12/04/2023, Expires: 12/03/2024 documented as of this encounter Visit Diagnoses Diagnosis Prostate cancer metastatic to multiple sites- Primary documented in this encounter Care Teams Patient Ombudsperson Relationship Specialty Start Date End Date Denis Gibson PA [address] [place] [phone] PCP - General Physician Material Handling Supervisor 07/29/23 Rajendra Edward MD [address] [place] [phone] South@ [email or web address] Primary Oncologist Hematology and Oncology 05/08/15 Park Leo RN [address] [place] [phone] [email or web address] Primary Infusion Nurse 05/08/15 Jaylen Oshea MD [address] [place] [address] [email or web address] Referring Physician 06/01/15 Denis Gibson PA [address] [place] [address] 01/04/19 Nany Rowland RN [address] [place] [phone] Paty [email or web address] Nurse Navigator 04/26/24 documented as of this encounter Additional Source Comments The information contained in this document represents components of the legal health record. It is not the complete legal health record.[facility]
--- OUTSIDE RECORDS SUMMARY | 2024-11-09 13:26 | XMS_ITS | Encounter Summary ---
Author Organization [facility] Address [address] [facility] [address] [place] [address] Phone Care Team Providers Care Restaurant Delivery Driver Name Role Phone Rajendra Edward MD Unavailable [phone] Park Leo RN Unavailable [email or web address] Jaylen Oshea MD Unavailable [phone] Denis Gibson Unavailable + [phone] Denis Gibson Primary Care Provid er Denis Gibson Primary Care Provid er Nany Rowland RN Unavailable [email or web address] Encounter Details Date Type Department Care Team (Late st Contact Info) Description 09/02/2022 Procedure Pass OR Admitting Dept - Virtual Department [address] [place] [address] Social History Tobacco Use Types Packs/Day Years Used Date Smoking Tobacco: Former Cigarettes Q uit: 06/22/1987 Smokeless Tobacco: Never Education Answer Date Recorded Are you interested in more education? Not on tulio e 07/12/2022 Are you concerned about learning? Not on file 07/12/2022 No 07/12/2022 No 07/12/2022 Digital Access Answer Date Recorded No 08/12/2022 No 08/12/2022 Reliable internet access at home? Not on file 08/12/2022 Device with a working camera? Not on file Sex and Gender Information Value Date Recorded Sex Assigned at Male 07/06/2022 3:03 PM EDT Legal Sex Male 1:44 PM EST Gender Identity Male 07/06/2022 3:03 PM EDT Sexual Orientation Not on file documented as of this encounter Plan of Treatment Upcoming Encounters Date Type Department Care Team (Late st Contact Info) Description 11/18/2024 8:30 AM EDT Office Visit [facility] at [address]nd [place] [address] Rajendra Edward MD [address] [place] [phone] South@ [email or web address] documented as of this encounter Visit Diagnoses Not on filedocumented in this encounter Care Teams Restaurant Delivery Driver Relationship Specialty Start Date End Date Denis Gibson PA [address] [place] [address] PCP - General 12/07/20 07/28/23 Denis Gibson PA [address] [place] [phone] PCP - General Physician Quality Compliance Consultant 07/29/23 Rajendra Edward MD [address] [place] [phone] South@ [facility] Primary Oncologist Hematology and Oncology 05/08/15 Park Leo, RN [address] [place] [phone] [email or web address] Primary Infusion Nurse 05/08/15 Jaylen Oshea MD [address] [place] [address] Referring Physician 06/01/15 Denis Gibson PA [facility] [address] [place] [address] 01/04/19 Nany Rowland, WANDER [address] [place] [address] Paty [email or web address] Nurse Navigator 04/26/24 documented as of this encounter Additional Source Comments The information contained in this document represents components of the legal health record. It is not the complete legal health record.[facility]
--- OUTSIDE RECORDS SUMMARY | 2024-11-09 13:27 | XMS_ITS | Encounter Summary ---
Author Organization [facility] Address [address] [facility] [address] [place] [address] Phone Care Team Providers Care Business Process Manager Name Role Phone Rajendra Edward MD Unavailable Park Leo RN Unavailable [email or web address] Jaylen Oshea MD Unavailable [phone] Denis Gibson Unavailable [phone]- [phone] Denis Gibson Primary Care Provid er Denis Gibson Primary Care Provid er Nany Rowland RN Unavailable [email or web address] Encounter Details Date Type Department Care Team (Late st Contact Info) Description 08/30/2022 Procedure Pass [facility], Ct Scan - [address] [address] Social History Tobacco Use Types Packs/Day Years [...] 4:32 AM EDT Miriam Rivas RN * [place] Suicide Severity Rating Scale (Screener/Recent Self-Report) Question [...] Visit [facility] at [facility] [address] [facility] [address] [place] [address] Rajendra Edward MD [address] [place] [phone] South@ [email or web address] documented as of this encounter Visit Diagnoses Not on filedocumented in this encounter Care Teams Business Process Manager Relationship Specialty Start Date End Date Denis Gibson PA [address] [place] [address] PCP - General 12/07/20 07/28/23 Denis Gibson PA [address] [place] [address] PCP - General Physician Fruit Bar Maker 07/29/23 Rajendra Edward MD [address] [place] [phone] South@ [facility] Primary Oncologist Hematology and Oncology 05/08/15 Park Leo RN [address] [place] [phone] [email or web address] Primary Infusion Nurse 05/08/15 Jaylen Oshea MD [address] [place] [address] Referring Physician 06/01/15 Denis Gibson PA [address] [place] [address] 01/04/19 Nany Rowland RN [address] [place] [address] Paty [email or web address] Nurse Navigator 04/26/24 documented as of this encounter Additional Source Comments The information contained in this document represents components of the legal health record. It is not the complete legal health record.[facility]
--- OUTSIDE RECORDS SUMMARY | 2024-11-09 13:27 | XMS_ITS | Clinical Summary ---
Author Organization [facility] Address [address] [facility] [address] [place] [address] Phone Care Team Providers Care Car Starter Name Role Phone Rajendra Edward MD Unavailable Park Leo RN Unavailable [email or web address] Jaylen Oshea MD Unavailable [phone] Dilan Lopez Unavailable [phone] Dilan Lopez Primary Care Provid er Nany Rowland RN Unavailable [email or web address] Allergies Active Allergy Reactions Criticality Noted Date Comments Bicalutamide Vomiting Low 05/04/2015 Iodinated Contrast Media Hives,Rash Low 01/22/2006 Medications Ca cit-D3-mag#11-zi ow-vqtx-mrh-bor (CALTRATE 600+D) 600 mg calcium- 800 unit-50 mg Tab Take 1 tablet by mouth daily. Active acetaminophen (TYLENOL) 325 mg tablet Take 2 tablets (650 mg total) by mouth every 8 (eight) hours as needed. 0 3 Active hydroCHLOROthiaz selene (HYDRODIURIL) 12.5 MG tablet Take 12.5 mg by mouth daily. 3 Active apixaban (ELIQUIS) 5 mg tablet Take 1 tablet by mouth 2 (two) times a day. To hold x 2 days 3 Active lisinopril (PRINIVIL,ZESTRI L) 10 MG tablet Take 20 mg by mouth daily. Active carboxymethylcel lulose (THERATEARS) 1 % DpGe Place into each eye 3 (three) times a day as needed. Active mirabegron (MYRBETRIQ) 25 mg Tb24 Take 25 mg by mouth. 4 Active loratadine (CLARITIN) 10 mg tablet Take 10 mg by mouth as needed for allergies. Active lidocaine (LIDODERM) 5 % Place 1 patch onto the skin daily. Remove & Discard patch within 12 hours or as directed by Active denosumab (PROLIA) 60 mg/mL Syrg subcutaneous syringe Inject 1 mL (60 mg total) under the skin once for 1 dose. 5 Active mineral oil/petrolatum,w chapincito (WHITE PETROLATUM-MANAGER TRAFFIC AL OIL OPHT) Apply to eye. 5 Active cephalexin (KEFLEX) 500 MG capsule take 1 capsule by mouth 4 times daily for 5 days 5 Active doxycycline hyclate (DORYX) 100 MG tablet Take 1 tablet by mouth 2 (two) times a day. 5 Active darolutamide (NUBEQA) 300 mg tablet Take 2 tablets (600 mg total) by mouth 2 (two) times a day. Swallow whole with food. 120 tablet 5 5 Active darolutamide (NUBEQA) 300 mg tablet Take 2 tablets (600 mg total) by mouth 2 (two) times a day. Swallow whole with food. 120 tablet 5 5 10/13/19 25 Discontinu ed(Reorder ) Active Problems Patient Care Coordination No te Formatting of this note migh t be different from the original. 04/26/2024 [place] [facility] in [facility] Problem Noted Date Diagnosed Date Hx [...] Overview (01/04/2022): August 07, 2020 Entered By: DILAN LOPEZ Comment: [email or web address] Product ICM model M301 serial [id number] may,. Bradycardia 01/04/2022 Prostate cancer metastatic to multiple sites Assessment & Plan (09/01/2022 4:12 PM EDT): Follows very closely and consistently with Dr Edward at [facility]. History of prostate cancer with mets to bone s/p Taxotere/Docetaxel in 2016. Most recent bone scan available to me from 2016 without evidence of disease. He was maintained [...] am Back pain GERD (gastroesophageal reflux disease) Resolved Problems Problem Noted Date Diagnosed Date [...] due to some postop delirium with narcotics Encounters Date Type Department Care Team Description 10/12/2024 Refill [facility] [address] [place] [address] Nany Rowland, slitting machine feeder Refill 10/12/2024 Telephone [facility] [address] [address] Leslie Miguel refill; Medication Management 08/17/2024 9:00 AM EDT Office Visit [facility] [address] [address] Rajendra Edward MD Prostate cancer metastatic to multiple sites (Primary Dx) 08/10/2024 11:42 AM EDT - 08/10/2024 11:59 PM EDT Hospital Encounter [facility] [address] [address] Rajendra Edward MD Discharge Disposition: Home or Self Care 08/10/2024 Transcribe Orders [facility] Laboratory [address] [address] Rajnedra Edward MD Screening for prostate cancer (Primary Dx) 08/10/2024 Transcribe Orders [facility] [address] [address] Celina Carlton PA-C from Last 3 Months Immunizations Immunization Administration Dates Next Due COVID-19 (Pre-01/06) Moderna Vaccine, mRNA, PF 0 03/31/2020 Social History Tobacco Use Types Packs/Day Years [...] PM EDT Sexual Orientation Not on file Last Filed Vital Signs Vital Sign Reading Time Taken Comments Blood Pressure 121/58 08/17/2024 8:43 AM EDT Pulse 63 08/17/2024 8:43 AM EDT Temperature 37.1 C (98.8 F) 08/17/2024 8:42 AM EDT Respiratory Rate 17 08/17/2024 8:42 AM EDT Oxygen Saturation 97% 08/17/2024 8:43 AM EDT Inhaled Oxygen Concentration - - Weight 95.3 kg (210 lb 1.6 oz) 08/17/2024 8:42 A M EDT Height 174.4 cm (5' 8.66 ) 06/15/2024 9:48 AM ED T Body Mass Index 31.33 06/15/2024 9:48 AM EDT Plan of Treatment Upcoming Encounters Date Type Department Care Team (Late st Contact Info) Description 11/18/2024 8:30 AM EDT Office Visit [facility] [address] [facility] [address] [place] [address] Rajendra Edward MD [address] [place] [phone] South@ [email or web address] Health Maintenance Due Date Last Done Comments LIPID PANEL 1943 DEPRESSION SCREENING 1955 SMOKING Hx and SMOKELESS TOBACCO SCREENING 11/04/1956 PNEUMOCOCCAL VACCINES (50+ years) (3 of 3 - PPSV23, PCV20 or PCV21) 10/31/2014 09/05/2014, 08/27/1999 COVID-19 VACCINE ( season) 2024 11/20/2023, 12/12/2022, 12/05/2021, Additional history exists BLOOD PRESSURE 02/16/2025 08/17/2024 CREATININE LEVEL 08/10/2025 08/10/2024, , 05/11/2024, Additional history exists POTASSIUM LEVEL 08/10/2025 08/10/2024, 05/16, 05/11/2024, Additional history exists Adult Td,Tdap Booster 01/08/2034 01/09/2024 , 09/27/2022, 04/09/2010, Additional history exists ZOSTER VACCINES Completed 02/15/2020, 11/16, 11/29/2008, Additional history exists HEPATITIS A VACCINES Aged Out 07/15/2023, 01/29/2023, 12/17/2022 No longer eligible based on patient's age to complete this topic RSV VACCINE Completed 01/09/2024, 11/21/2022 HIB VACCINES Aged Out No longer eligi ble based on patient's age to complete this topic MENINGOCOCCAL VACCINES (ACWY) Aged Out No longer eligible based on patient's age to complete this topic MENINGOCOCCAL VACCINES (B) Aged Out N o longer eligible based on patient's age to complete this topic Medical Devices Implanted Type Area Machine Pan Greaser Device Identifier Shelf Expiration Date Model / Serial / Lot Bone Cement Antibiotic Refobacin - [id number] Implanted:Qty: 2 on 09/02/2022 by Jaison Ch MD at [facility] Left: Hip [employer] 10/13/2024 [id number] / / [id number] Hip Liner [id number] Acetabular Dm Longevity - [id number] Implanted:Qty: 1 on 09/02/2022 by Jaison Ch MD at [facility] Left: Hip [employer] 10/10/2026 [id number] / / [id number] Acetabular Shell 54mm Size F G7 Porous Plasma [place] [employer] Hole - [id number] Implanted:Qty: 1 on 09/02/2022 by Jaison Ch MD at [facility] Left: Hip [employer] 04/25/2032 [id number] / / [id number] Screw Dome 6.5x35mm G7 Aceetabular Low Profile Hip - [id number] Implanted:Qty: 1 on 09/02/2022 by Jaison Ch MD at [facility] Left: Hip [employer] 01/15/2032 [id number] / / [id number] Screw Bone 6.5x30mm Hip Dome G7 Acetabular Low Profile - [id number] Implanted:Qty: 1 on 09/02/2022 by Jaison Ch MD at [facility] Left: Hip [employer] 01/04/2032 [id number] / / [id number] Kit Preparation Cement Femoral Bone Quick Use Bx/1ea - [id number] Implanted:Qty: 1 on 09/02/2022 by Jaison Ch MD at [facility] Left: Hip [employer] 02/03/2027 [id number] / / [id number] Acetabular Liner 44mm Component Dual Mobility G7 - [id number] Implanted:Qty: 1 on 09/02/2022 by Jaison Ch MD at [facility] Left: Hip [employer] 04/30/2032 [id number] / / [id number] Hip Centralizer 15mm Implant Cemented Versys 16b Bx/1ea - [id number] Implanted:Qty: 1 on 09/02/2022 by Jaison Ch MD at [facility] Left: Hip [employer] 07/15/2027 [id number] / / [id number] Hip Stem 13mm Femoral Echo Fx [place] Std Offset - [id number] Implanted:Qty: 1 on 09/02/2022 by Jaison Ch MD at [facility] Left: Hip [employer] 03/19/2026 [id number] / / [id number] Hip 6.0x28mm Active Articulation Dual Mobility [place] Skirtless Modular Plus - [id number] Implanted:Qty: 1 on 09/02/2022 by Jaison Ch MD at [facility] Left: Hip [employer] 07/15/2031 [id number] / / [id number] Procedures Procedure Name Priority Date/Time Associated Diagnosis Comments PSA (SCREENING) Routine 08/10/2024 12:02 PM EDT Screening for prostate cancer CBC AND DIFFERENTIAL Routine 08/10/2024 11:43 AM EDT Prostate cancer metastatic to multiple sites COMPREHENSIVE METABOLIC PANEL Routine 08/10/2024 11:43 AM EDT Prostate cancer metastatic to multiple sites TESTOSTERONE, TOTAL Routine 08/10/2024 1 1:43 AM EDT Prostate cancer metastatic to multiple sites from Last 3 Months Results * PSA (screening) (08/10/2024 12:02 PM EDT) PSA 2.96 0 - 4.00 ng/mL [facility] Comment: Test Methodology Everplaces e801 Patient results determined by assays using different manufacturers or methods may not be comparable. Blood 08/10/2024 12:0 2 PM EDT 08/10/2024 12:09 PM EDT us Rajendra Edward MD LAB BLOOD ORDERABLES Hali suarez Result [facility] [address] [place], [place] [phone] * (ABNORMAL) Comprehensive metabolic panel (08/10/2024 11:43 AM EDT) SODIUM 138 133 - 146 mmol/L [facility] POTASSIUM 4.8 3.3 - 5.1 mmol/L [facility] CHLORIDE 101 96 - 108 mmol/L [facility] CO2 27 21 - 35 mmol/L [facility] BUN 21(H) 6 - 19 mg/dL [facility] CREATININE 1.00 0.5 - 1.5 mg/dL [facility] GLUCOSE 102(H) 70 - 99 mg/dL [facility] ALBUMIN 4.1 3.9 - 4.8 g/dL [facility] TOTAL PROTEIN 7.5 6.5 - 8.0 g/dL [facility] CALCIUM 9.6 8.4 - 10.3 mg/dL [facility] ALKALINE PHOSPHATASE 59 39 - 117 U/L [facility] TOTAL BILIRUBIN 0.3 0.0 - 1.2 mg/dL [facility] AST 20 0 - 37 U/L [facility] ALT 12 0 - 40 U/L [facility] GLOBULIN 3.4 1 - 4.8 g/dL [facility] EGFR 76 >59 mL/min/1.7 3m2 [facility] Comment:Estimated glomerular filtration rate calculated using the CKD-EPI refit equation. ANION GAP 15 10 - 20 mmol/L [facility] Blood 08/10/2024 11:4 3 AM EDT 08/10/2024 11:57 AM EDT us Rajendra Edward MD LAB BLOOD ORDERABLES Hali suarez Result Performing Organization Address City/State/[facility] Co de Phone Number [facility] [address] [place] [address] * (ABNORMAL) CBC and differential (08/10/2024 11:43 AM EDT) WBC 6.44 4.00 - 11.00 K/uL [facility] RBC 4.80 4.50 - 5.90 M/uL [facility] HGB 13.2(L) 13.5 - 17.5 g/dL [facility] HCT 42.1 41.0 - 53.0 % [facility] PLT 189 150 - 450 K/uL [facility] MCV 87.7 80.0 - 100.0 fL [facility] MCH 27.5 27.0 - 31.0 pg [facility] MCHC 31.4(L) 32.0 - 36.0 g/dL [facility] RDW 14.3 11.5 - 14.5 % [facility] MPV 12.0 8.4 - 12.0 fL [facility] NRBC 0.00 0.00 /100 WBCs [facility] ABSOLUTE NRBC 0.00 0.00 K/uL [facility] DIFF METHOD Auto [facility] NEUTS 59.3 48.0 - 76.0 % [facility] LYMPHS 28.3 18.0 - 41.0 % [facility] MONOS 9.9 4.0 - 11.0 % [facility] EOS 1.6 0.0 - 5.0 % [facility] BASOS 0.6 0.0 - 1.5 % [facility] Granulocytes, immature (%) 0.3 0.0 - 0.9 % [facility] ABSOLUTE NEUTS 3.82 1.92 - 7.60 K/uL [facility] ABSOLUTE LYMPHS 1.82 0.72 - 4.10 K/uL [facility] ABSOLUTE MONOS 0.64 0.16 - 1.10 K/uL [facility] ABSOLUTE EOS 0.10 0.00 - 0.50 K/uL [facility] ABSOLUTE BASOS 0.04 0.00 - 0.15 K/uL [facility] Granulocytes, immature 0.02 0.00 - 0.09 K/uL [facility] Blood 08/10/2024 11:4 3 AM EDT 08/10/2024 11:57 AM EDT Rajendra Edward MD LAB BLOOD ORDERABLES Hali l Result Performing Organization Address City/[facility]/ZIP Co de Phone Number [address] [address] * (ABNORMAL) Testosterone, total (08/10/2024 11:43 AM EDT) TESTOSTERONE 9(L) 249 - 836 ng/dL [facility] Blood 08/10/2024 11:4 3 AM EDT 08/10/2024 11:57 AM EDT Rajendra Edward MD LAB BLOOD ORDERABLES Hali l Result Performing Organization Address [facility]/ZIP Co de Phone Number [address] [address] from Last 3 Months Insurance MEDICARE PART A & B [employer] MEDEX SUPPLEMENT MEDICARE PART A & B [employer] MEDEX SUPPLEMENT MEDICARE PART A & B [employer] MEDEX SUPPLEMENT MEDICARE PART A & B [employer] MEDEX SUPPLEMENT MEDICARE PART A & B [employer] MEDEX SUPPLEMENT MEDICARE PART A & B [employer] MEDEX SUPPLEMENT MEDICARE PART A & B [employer] MEDEX SUPPLEMENT MEDICARE PART A & B [employer] CROSS MEDEX SUPPLEMENT MEDICARE PART A & B [employer] CROSS MEDEX SUPPLEMENT Advance Directives For more information, please contact: [phone] (9AM - 5PM [facility], Friday-Friday) Documents on File Type Date Recorded Patient Laundry Superintendent Yaya lambert Healthcare Proxy 09/06/2022 11:48 AM Healthcare Proxy 04/07/2015 2:36 PM * Full Code (Latest Code Status on File) Date Activated Date Inactivated Comments 08/30/2022 2:09 PM Question Answer Comments Code Status Confirmed With: PatientFamily Healthcare Agents on File Name Relationship Healthcare Agent Snow collier Communication Sophie Brock Spouse .Primary Health Care Agent (Proxy form on file) Care Teams Car Starter Relationship Specialty Start Date End Date Dilan Lopez PA [address] [place] [address] PCP - General Physician Aerospace Technician 07/29/23 Rajendra Edward MD [address] [place] [phone] South@ [email or web address] Primary Oncologist Hematology and Oncology 05/08/15 Park Leo, RN [address] [place] [phone] [email or web address] Primary Infusion Nurse 05/08/15 Jaylen Oshea MD [address] [place] [address] [email or web address] Referring Physician 06/01/15 Dilan Lopez PA [address] [place] [address] 01/04/19 Nany Rowland, WANDER [address] [place] [phone] Paty [email or web address] Nurse Navigator 04/26/24 Additional Source Comments The information contained in this document represents components of the legal health record. It is not the complete legal health record.[facility]
--- OUTSIDE RECORDS SUMMARY | 2024-11-09 13:27 | XMS_ITS | Encounter Summary ---
Author Organization [facility] Address [address] [facility] [address] [place] [address] Phone Care Team Providers Care Shrimp Peeling Machine Tender Name Role Phone Rajendra Edward MD Unavailable [phone] Park Leo RN Unavailable [email or web address] Jaylen Oshea MD Unavailable [phone] Denis Gibson Unavailable + [phone] Denis Gibson Primary Care Provid er Denis Gibson Primary Care Provid er Nany Rowland RN Unavailable [email or web address] Encounter Details Date Type Department Care Team (Late st Contact Info) Description 07/18/2023 Procedure Pass [facility], [address] [place] [address] Social History Tobacco Use Types Packs/Day Years [...] Description 11/18/2024 8:30 AM EDT Office Visit [facility] at [address] [address] Rajendra Edward MD [address] [place] [phone] South@ [email or web address] documented as of this encounter Visit Diagnoses Not on filedocumented in this encounter Care Teams Shrimp Peeling Machine Tender Relationship Specialty Start Date End Date Denis Gibson PA [facility] [place] [address] PCP - General 12/07/20 07/28/23 Denis Gibson PA [address] [place] [phone] PCP - General Physician Apparel Embroidery Digitizer 07/29/23 Rajendra Edward MD [address] [place] [phone] South@ [email or web address] Primary Oncologist Hematology and Oncology 05/08/15 Park Leo RN [address] [place] [phone] [email or web address] Primary Infusion Nurse 05/08/15 Jaylen Oshea MD [address] [place] [address] [email or web address] Referring Physician 06/01/15 Denis Gibson PA [address] [address] 01/04/19 Nany Rowland RN [address] [place] [address] Paty [email or web address] Nurse Navigator 04/26/24 documented as of this encounter Additional Source Comments The information contained in this document represents components of the legal health record. It is not the complete legal health record.[facility]
--- OUTSIDE RECORDS SUMMARY | 2024-11-09 13:27 | XMS_ITS | Encounter Summary ---
Author Organization [facility] Address [address] [facility] [address] [place] [address] Phone Care Team Providers Care Safety Council Director Name Role Phone Rajendra Edward MD Unavailable Park Leo RN Unavailable [email or web address] LICENSE [facility] Jaylen Oshea MD Unavailable [phone] Denis Gibson Unavailable +- [phone] Denis Gibson Primary Care Provid er Denis Gibson Primary Care Provid er Nany Rowland RN Unavailable [email or web address] Encounter Details Date Type Department Care Team (Late st Contact Info) Description 08/30/2022 Procedure Pass [facility], Ct Scan - [address] [address] Social History Tobacco Use Types Packs/Day Years [...] 4:32 AM EDT Miriam Rivas RN * [place] Suicide Severity Rating Scale (Screener/Recent Self-Report) Question [...] Visit [facility] at [facility] [address] [facility] 2nd [place] [address] Rajendra Edward MD 20 [place] [address] South@ [email or web address] documented as of this encounter Visit Diagnoses Not on filedocumented in this encounter Care Teams Safety Council Director Relationship Specialty Start Date End Date Denis Gibson PA [address] [place] [address] PCP - General 12/07/20 07/28/23 Denis Gibson PA [address] [place] [address] PCP - General Physician Cover Mat Machine Operator 07/29/23 Rajendra Edward MD [address] [place] [phone] South@ [email or web address].ON LICENSE [facility] Primary Oncologist Hematology and Oncology 05/08/15 Park Leo RN [address] [place] [phone] [email or web address] Primary Infusion Nurse 05/08/15 Jaylen Oshea MD [address] [place] [address] [email or web address] Referring Physician 06/01/15 Denis Gibson PA [address] [place] [address] 01/04/19 Nany Rowland RN [address] [place] [address] Paty [email or web address] Nurse Navigator 04/26/24 documented as of this encounter Additional Source Comments The information contained in this document represents components of the legal health record. It is not the complete legal health record.[facility]
--- OUTSIDE RECORDS SUMMARY | 2024-11-09 13:27 | XMS_ITS | Encounter Summary ---
Author Organization [facility] Address [address] [facility] [address] [place] [address] Phone Care Team Providers Care Auto Motor Mechanic Name Role Phone Rajendra Edward MD Unavailable [phone] Park Leo RN Unavailable [email or web address] Jaylen Oshea MD Unavailable [phone] Denis Gibson Unavailable +- [phone] Denis Gibson Primary Care Provid er Denis Gibson Primary Care Provid er Nany Rowland RN Unavailable [email or web address] Encounter Details Date Type Department Care Team (Late st Contact Info) Description 07/06/2022 Procedure Pass [facility], Ct Scan - [address] [address] Social History Tobacco Use Types Packs/Day Years Used Date Smoking Tobacco: Former Cigarettes Q uit: 06/22/1987 Smokeless Tobacco: Never Sex and Gender Information Value Date Recorded Sex Assigned at Male 07/06/2022 3:03 PM EDT Legal Sex Male 1:44 PM EST Gender Identity Male 07/06/2022 3:03 PM EDT Sexual Orientation Not on file documented as of this encounter Functional Status * Calculated C-SSRS Risk Score (Lifetime/Recent) Answer Date of Assessment Author No Risk Indicated 07/06/2022 3:03 PM EDT Khadijah Taylor RN * Media Suicide Severity Rating Scale (Screener/Recent Self-Report) Question Answer Date of Assessment Author 1. Wish to be (Past 1 Month) No 023 3:03 PM EDT Khadijah Taylor RN 2. Non-Specific Active Suici sual Thoughts (Past 1 Month) No 07/06/2022 3:03 PM EDT Khadijah Taylor RN 6. Suicidal Behavior (Lifetime) No 3:03 PM EDT Khadijah Taylor RN documented as of this encounter Plan of Treatment Upcoming Encounters Date Type Department Care Team (Late st Contact Info) Description 11/18/2024 8:30 AM EDT Office Visit [facility] at [address] [place] [address] Rajendra Edward MD [address] [place] [phone] South@ [email or web address] documented as of this encounter Visit Diagnoses Not on filedocumented in this encounter Additional Health Concerns Infection Onset Date Last Indicated Resolved Time CoV-Risk 07/06/2022 07/06/2022 07/06/2022 3:45 PM EDT COVID-19 07/06/2022 07/06/2022 07/27/2022 1:21 AM EDT documented as of this encounter Care Teams Auto Motor Mechanic Relationship Specialty Start Date End Date Denis Gibson PA [address] [place] [address] PCP - General 12/07/20 07/28/23 Denis Gibson PA [address] [place] [address] PCP - General Physician Chief Of Anesthesiology 07/29/23 Rajendra Edward MD 20 [place] [address] South@ [email or web address] Primary Oncologist Hematology and Oncology 05/08/15 Park Leo, WANDER [address] [place] [phone] [email or web address] Primary Infusion Nurse 05/08/15 Jaylen Oshea MD [address] [place] [address] [email or web address] Referring Physician 06/01/15 Denis Gibson PA [address] [place] [address] 01/04/19 Nany Rowland RN [address] [place] [address] Paty [email or web address] Nurse Navigator 04/26/24 documented as of this encounter Additional Source Comments The information contained in this document represents components of the legal health record. It is not the complete legal health record.[facility]
--- OUTSIDE RECORDS SUMMARY | 2024-11-09 13:27 | XMS_ITS | Encounter Summary ---
Author Organization [facility] Address [address] [facility] [address] [place] [address] Phone Care Team Providers Care Tapping Machine Operator Automatic Name Role Phone Rajendra Edward MD Unavailable Park Leo RN Unavailable [email or web address] Jaylen Oshea MD Unavailable [phone] Denis Gibson Unavailable + [phone] Denis Gibson Primary Care Provid er Denis Gibson Primary Care Provid er Nany Rowland RN Unavailable [email or web address] Encounter Details Date Type Department Care Team (Late st Contact Info) Description 06/30/2023 Procedure Pass [facility]oscopy Admitting Dept Virtual Department [address] [place] [address] Social History Tobacco Use Types Packs/Day Years [...] Description 11/18/2024 8:30 AM EDT Office Visit [facility] at [address] [address] Rajendra Edward MD [address] [place] [phone] South@ [facility] documented as of this encounter Visit Diagnoses Not on filedocumented in this encounter Care Teams Tapping Machine Operator Automatic Relationship Specialty Start Date End Date Denis Gibson [facility] [place] [address] PCP - General 12/07/20 07/28/23 Denis Gibson PA [address] [place] [phone] PCP - General Physician Photographic Process Screen Maker 07/29/23 Rajendra Edward MD [address] [place] [phone] South@ [facility] Primary Oncologist Hematology and Oncology 05/08/15 Park Leo RN [address] [place] [phone] [email or web address] Primary Infusion Nurse 05/08/15 Jaylen Oshea MD [address] [place] [address] [email or web address] Referring Physician 06/01/15 Denis Gibson PA [address], [place] [address] 01/04/19 Nany Rowland RN [address] [place] [address] Paty [email or web address] Nurse Navigator 04/26/24 documented as of this encounter Additional Source Comments The information contained in this document represents components of the legal health record. It is not the complete legal health record.[facility]
--- OUTSIDE RECORDS SUMMARY | 2024-11-09 13:27 | XMS_ITS | Encounter Summary ---
Author Organization [facility] Address [address] [facility] [address] [place] [address] Phone Care Team Providers Care Manager Commercial Real Estate Name Role Phone Rajendra Edward MD Unavailable [phone] Park Leo RN Unavailable [email or web address] Jaylen Oshea MD Unavailable [phone] Denis Gibson Unavailable + [phone] Denis Gibson Primary Care Provid er Denis Gibson Primary Care Provid er Nany Rowland RN Unavailable [email or web address] Reason for Referral * MRI/CAT Scan - Closed Specialty Diagnoses / Procedures Referred By Contac t Referred To Contact Radiology Diagnoses Spinal stenosis, lumbar region with neurogenic claudication Procedures MRI Lumbar Spine System, Provider Not In, [facility] [address] [address] Referral ID Status Reason Start Date Expiration Date Visits Re quested Visits Authorized [id number] Closed 07/18/2023 09/14/2024 1 1 Encounter Details Date Type Department Care Team (Late st Contact Info) Description 07/18/[address] [facility] Department [address] [place] [address] System, Provider Not In, [facility] [address] [address] Spinal stenosis, lumbar region with neurogenic claudication (Primary Dx) Social History Tobacco Use Types [...] Description 11/18/2024 8:30 AM EDT Office Visit [facility] at [address] [place] [address] Rajendra Edward MD [address] [place] [phone] (work) [email or web address] documented as of this encounter Results * MRI LUMBAR SPINE (NEURO) WITHOUT CONTRAST (08/02/2023 8:41 AM EDT) Anatomical Region Laterality Modality L-spine Magnetic Resonan ce 08/04/2023 8:40 PM EDT Impressions 08/06/2023 6:20 AM EDT Lumbar spine degenerative changes as described, most prominent at L3-L4 with areas moderate spinal canal stenosis, and moderate to severe right and moderate left foraminal stenosis. Narrative 08/06/2023 6:20 AM EDT MRI LUMBAR SPINE (NEURO) WITHOUT CONTRAST Referring clinician's provided indication for this examination in Epic: Outside Radiology Order; spinal stenosis lumbar region TECHNIQUE: MRI LUMBAR SPINE (NEURO) WITHOUT CONTRAST Multi-sequence, multi-planar MRI of the lumbar spine was performed without intravenous contrast. COMPARISON: None FINDINGS: Alignment and Vertebrae: Normal alignment. No compression fracture. Marrow: Heterogeneous background No suspicious focal osseous lesion. Discs and Endplates: Multilevel severe disc space narrowing, with marginal osteophyte formation. Other Findings: None Findings by level: T12-L1: Normal. No spinal or foraminal stenosis. L1-L2: Diffuse disc bulge. Mild right foraminal stenosis. No significant spinal canal stenosis L2-L3: Posterior disc osteophyte complex. Mild facet arthropathy. Mild to moderate right foraminal stenosis. No significant spinal canal stenosis. L3-L4: Diffuse disc bulge. Severe bilateral facet arthropathy. Moderate left and moderate to severe right foraminal stenosis. Moderate spinal canal stenosis. L4-L5: Diffuse disc bulge. Moderate bilateral facet arthropathy. Moderate left and mild right foraminal stenosis. Narrowing of the left subarticular zone, with abutment of the traversing left L5 nerve roots. No significant central spinal canal stenosis. L5-S1: Diffuse disc bulge. Mild facet arthropathy. Mild to moderate left and mild right foraminal stenosis. No significant spinal canal stenosis. Procedure Note William Carolina MD - 08/06/2023 MRI LUMBAR SPINE (NEURO) WITHOUT CONTRAST Referring clinician's provided indication for this examination in Epic:Outside Radiology Order; spinal stenosis lumbar region TECHNIQUE: MRI LUMBAR SPINE (NEURO) WITHOUT CONTRAST Multi-sequence, multi-planar MRI of the lumbar spine was performed withoutintravenous contrast. COMPARISON: None FINDINGS: Alignment and Vertebrae: Normal alignment. No compression fracture. Marrow: Heterogeneous background No suspicious focal osseous lesion. Discs and Endplates: Multilevel severe disc space narrowing, with marginalosteophyte formation. Other Findings: None Findings by level: T12-L1: Normal. No spinal or foraminal stenosis. L1-L2: Diffuse disc bulge. Mild right foraminal stenosis. No significantspinal canal stenosis L2-L3: Posterior disc osteophyte complex. Mild facet arthropathy. Mild tomoderate right foraminal stenosis. No significant spinal canal stenosis. L3-L4: Diffuse disc bulge. Severe bilateral facet arthropathy. Moderateleft and moderate to severe right foraminal stenosis. Moderate spinalcanal stenosis. L4-L5: Diffuse disc bulge. Moderate bilateral facet arthropathy. Moderateleft and mild right foraminal stenosis. Narrowing of the left subarticularzone, with abutment of the traversing left L5 nerve roots. No significantcentral spinal canal stenosis. L5-S1: Diffuse disc bulge. Mild facet arthropathy. Mild to moderate leftand mild right foraminal stenosis. No significant spinal canal stenosis. IMPRESSION: Lumbar spine degenerative changes as described, most prominent at L3-L4with areas moderate spinal canal stenosis, and moderate to severe rightand moderate left foraminal stenosis. us Provider Not In System PhD IMG MR XSPECIALTY Fin al Result documented in this encounter Visit Diagnoses Diagnosis Spinal stenosis, lumbar region with neurogenic claudication- Primary Spinal stenosis, lumbar region with neurogenic claudication documented in this encounter Care Teams Manager Commercial Real Estate Relationship Specialty Start Date End Date Denis Gibson PA [address] [place] [address] PCP - General 12/07/20 07/28/23 Denis Gibson PA [address] [place] [address] PCP - General Physician Scrap Kettle Tender 07/29/23 Rajendra Edward MD [address] [place] [phone] South@ [email or web address] Primary Oncologist Hematology and Oncology 05/08/15 Park Leo, WANDER [address] [place] [phone] [email or web address] Primary Infusion Nurse 05/08/15 Jaylen Oshea MD [address] [place] [address] [email or web address] Referring Physician 06/01/15 Denis Gibson PA [address] [place] [address] 01/04/19 Nany Rowland RN [address] [place] [address] Paty [email or web address] Nurse Navigator 04/26/24 documented as of this encounter Additional Source Comments The information contained in this document represents components of the legal health record. It is not the complete legal health record.[facility]
--- OUTSIDE RECORDS SUMMARY | 2024-11-09 13:27 | XMS_ITS | Encounter Summary ---
Author Organization [facility] Address [address] [facility] [address] [place] [address] Phone Care Team Providers Care Blind Installer Name Role Phone Rajendra Edward MD Unavailable Park Leo RN Unavailable [email or web address] Jaylen Oshea MD Unavailable [phone] Denis Gibson Unavailable + [phone] Denis Gibson Primary Care Provid er Nany Rowland RN Unavailable [email or web address] Encounter Details Date Type Department Care Team (Late st Contact Info) Description 08/13/2023 Transcribe Orders Virtual Department [address] [place] [address] System, Provider Not In, [facility] [address] [address] Leg weakness, bilateral (Primary Dx) Social History Tobacco Use Types [...] Description 11/18/2024 8:30 AM EDT [facility] at [address] [address] Rajendra Edward MD [address] [place] [phone] South@ [facility] documented as of this encounter Visit Diagnoses Diagnosis Leg weakness, bilateral- Primary Muscle weakness (generalized) documented in this encounter Care Teams Blind Installer Relationship Specialty Start Date End Date Denis Gibson PA [address] [place] [address] PCP - General Physician Dental Patient Coordinator 07/29/23 Rajendra Edward MD [address] [place] [phone] South@ [facility] Primary Oncologist Hematology and Oncology 05/08/15 Park Leo RN [address] [place] [phone] [email or web address] Primary Infusion Nurse 05/08/15 Jaylen Oshea MD [address] [place] [address] [email or web address] Referring Physician 06/01/15 Denis Gibson PA [address] [place] [address] 01/04/19 Nany Rowland RN [address] [place] [address] Paty [email or web address] Nurse Navigator 04/26/24 documented as of this encounter Additional Source Comments The information contained in this document represents components of the legal health record. It is not the complete legal health record.[facility]
--- OUTSIDE RECORDS SUMMARY | 2024-11-09 13:27 | XMS_ITS | Encounter Summary ---
Author Organization [facility] Address [address] [facility] [address] [place] [address] Phone Care Team Providers Care Rails Developer Name Role Phone Rajendra Edward MD Unavailable Park Leo RN Unavailable [email or web address] Jaylen Oshea MD Unavailable [phone] Denis Gibson Unavailable +- [phone] Denis Gibson Primary Care Provid er Denis Gibson Primary Care Provid er Nany Rowland RN Unavailable [email or web address] Encounter Details Date Type Department Care Team (Late st Contact Info) Description 08/31/2022 Procedure Pass [facility], Ct Scan - [address] [address] Social History Tobacco Use Types Packs/Day Years [...] Description 11/18/2024 8:30 AM EDT Office Visit [facility] at [address] [place] [address] Rajendra Edward MD [address] [place] [phone] South@ [facility] documented as of this encounter Visit Diagnoses Not on filedocumented in this encounter Care Teams Rails Developer Relationship Specialty Start Date End Date Denis Gibson PA [address] [place] [address] PCP - General 12/07/20 07/28/23 Denis Gibson PA [address] [place] [phone] PCP - General Physician Displayer Merchandise 07/29/23 Rajendra Edward MD [address] [place] [phone] South@ [facility] Primary Oncologist Hematology and Oncology 05/08/15 Park Leo RN [address] [place] [phone] [email or web address] [facility]S AT [facility] Primary Infusion Nurse 05/08/15 Jaylen Oshea MD [address] [place] [address] Referring Physician 06/01/15 Denis Gibson PA [address] [place] [address] 01/04/19 Nany Rowland RN [address] [place] [address] Paty [email or web address] Nurse Navigator 04/26/24 documented as of this encounter Additional Source Comments The information contained in this document represents components of the legal health record. It is not the complete legal health record.[facility]
--- OUTSIDE RECORDS SUMMARY | 2024-11-09 13:28 | XMS_ITS | Encounter Summary ---
Author Organization [facility] Address [address] [facility] [address] [place] [address] Phone Care Team Providers Care Funeral Driver Name Role Phone Rajendra Edward MD Unavailable aPrk Leo RN Unavailable [email or web address] Jaylen Oshea MD Unavailable [phone] Denis Gibson Unavailable + [phone] Denis Gibson Primary Care Provid er Nany Rowland RN Unavailable [email or web address] Encounter Details Date Type Department Care Team (Late st Contact Info) Description 08/10/2024 Transcribe Orders [facility] Laboratory 10 [facility] 2nd [place] [address] Celina Carlton PA-C [address] [place] [address] [email or web address] Social History Tobacco Use Types Packs/Day Years [...] Description 11/18/2024 8:30 AM EDT Office Visit [facility] 20 [facility] 2nd [place] [address] Rajendra Edward MD [address] [place] [phone] South@ [email or web address] documented as of this encounter Visit Diagnoses Not on filedocumented in this encounter Care Teams Funeral Driver Relationship Specialty Start Date End Date Denis Gibson PA [address] [place] [address] PCP - General Physician Oil Filters Inspector 07/29/23 Rajendra Edward MD 20 [place] [phone] South@ [email or web address] Primary Oncologist Hematology and Oncology 05/08/15 Park Leo RN [address] [place] [phone] [email or web address] Primary Infusion Nurse 05/08/15 Jaylen Oshea MD [address] [place] [address] [email or web address] Referring Physician 06/01/15 Denis Gibson PA [address] [place] [address] 01/04/19 Nany Rowland RN [address] [place] [address] Paty [email or web address] Nurse Navigator 04/26/24 documented as of this encounter Additional Source Comments The information contained in this document represents components of the legal health record. It is not the complete legal health record.[facility]
--- OUTSIDE RECORDS SUMMARY | 2024-11-09 13:28 | XMS_ITS | Encounter Summary ---
Author Organization [facility] Address [address] [facility] [address] [place] [address] Phone Care Team Providers Care Dobby Looms Pegger Name Role Phone Rajendra Edward MD Unavailable [phone] Park Leo RN Unavailable [email or web address] Jaylen Oshea MD Unavailable [phone] Denis Gibson Unavailable [phone] Denis Gibson Primary Care Provid er Denis Gibson Primary Care Provid er Nany Rowland RN Unavailable [email or web address] Encounter Details Date Type Department Care Team (Late st Contact Info) Description 05/13/2022 Transcribe Orders [facility] Laboratory [address] [address] Rajendra Edward MD [address] [place] [phone] Toby [email or web address] Screening for prostate cancer Social History Tobacco Use Types Packs/Day Years [...] Description 11/18/2024 8:30 AM EDT [facility] 20 [facility] 2nd [place] [address] Rajendra Edward MD 20 [place] [address] South@ [email or web address] documented as of this encounter Results * PSA (screening) (05/13/2022 9:24 AM EST) PSA 0.05 0 - 4.00 ng/mL [facility] Blood 05/13/2022 9:24 AM EST 05/13/2022 9:26 AM EST us Rajendra Edward MD LAB BLOOD ORDERABLES Hali l Result [facility] [address] [place] [address] documented in this encounter Visit Diagnoses Diagnosis Screening for prostate cancer Special screening for malignant neoplasm of prostate documented in this encounter Additional Health Concerns Infection Onset Date Last Indicated Resolved Time CoV-Risk 07/06/2022 07/06/2022 07/06/2022 3:45 PM EDT COVID-19 07/06/2022 07/06/2022 07/27/2022 1:21 AM EDT documented as of this encounter Care Teams Dobby Looms Pegger Relationship Specialty Start Date End Date Denis Gibson PA [address] [place] [address] PCP - General 12/07/20 07/28/23 Denis Gibson PA [address] [place] [phone] PCP - General Physician Premium Auditor 07/29/23 Rajendra Edward MD 20 [place] [phone] South@ [email or web address] Primary Oncologist Hematology and Oncology 05/08/15 Park Leo RN [address] [place] [phone] [email or web address] Primary Infusion Nurse 05/08/15 Jaylen Oshea MD [address] [place] [address] [email or web address] Referring Physician 06/01/15 Denis Gibosn PA [address] [place] [address] 01/04/19 Nany Rowland RN [address] [place] [address] Paty [email or web address] Nurse Navigator 04/26/24 documented as of this encounter Additional Source Comments The information contained in this document represents components of the legal health record. It is not the complete legal health record.[facility]
--- OUTSIDE RECORDS SUMMARY | 2024-11-09 13:28 | XMS_ITS | Encounter Summary ---
Author Organization [facility] Address [address] [facility] [address] [place] [address] Phone Care Team Providers Care Ultimate Hoops Referee Name Role Phone Rajendra Edward MD Unavailable [phone] Park Leo RN Unavailable [email or web address] Jaylen Oshea MD Unavailable [phone] Denis Gibson Unavailable + [phone] Denis Gibson Primary Care Provid er Denis Gibson Primary Care Provid er Nany Rowland RN Unavailable [email or web address] Encounter Details Date Type Department Care Team (Late st Contact Info) Description 01/23/2022 Procedure Pass [facility], [address] [address] Social History Tobacco Use Types Packs/Day Years [...] Visit [facility] at [address] [address] Rajendra Edward MD [address] [place] [phone] South@ [email or web address] documented as of this encounter Visit Diagnoses Not on filedocumented in this encounter Additional Health Concerns Infection Onset Date Last Indicated Resolved Time CoV-Risk 07/06/2022 07/06/2022 07/06/2022 3:45 PM EDT COVID-19 07/06/2022 07/06/2022 07/27/2022 1:21 AM EDT documented as of this encounter Care Teams Ultimate Hoops Referee Relationship Specialty Start Date End Date Denis Gibson PA [address] [place] [address] PCP - General 12/07/20 07/28/23 Denis Gibson PA [address] [place] [address] PCP - General Physician Concrete Engineering Technician 07/29/23 Rajendra Edward MD [address] [place] [phone] South@ [email or web address] Primary Oncologist Hematology and Oncology 05/08/15 Park Leo, RN [address] [place] [phone] [email or web address] Primary Infusion Nurse 05/08/15 Jaylen Oshea MD [address] [place] [address] [email or web address] Referring Physician 06/01/15 Denis Gibson PA [address] [place] [address] 01/04/19 Nany Rowland RN [address] [place] [address] Paty [email or web address] Nurse Navigator 04/26/24 documented as of this encounter Additional Source Comments The information contained in this document represents components of the legal health record. It is not the complete legal health record.[facility]
--- OUTSIDE RECORDS SUMMARY | 2024-11-09 13:28 | XMS_ITS | Encounter Summary ---
Author Organization [facility] Address [address] [facility] [address] [place] [address] Phone Care Team Providers Care Circuit Judge Name Role Phone Rajendra Edward MD Unavailable [phone] Park Leo RN Unavailable [email or web address] Jaylen Oshea MD Unavailable [phone] Denis Gibson Unavailable [phone] Denis Gibson Primary Care Provid er Denis Gibson Primary Care Provid er Nany Rowland RN Unavailable [email or web address] Reason for Referral * MRI/CAT Scan - Closed Specialty Diagnoses / Procedures Referred By Contac t Referred To Contact Radiology Diagnoses Cervicalgia Procedures MRI Cervical Spine Denis Gibson PA [address] [place] [address] Phone: tel: fax: Referral ID Status Reason Start Date Expiration Date Visits Re quested Visits Authorized [id number] Closed 01/23/2022 04/17/2022 1 1 Encounter Details Date Type Department Care Team (Latest Contact Info) Description 01/23/2022 Transcribe Orders [facility] Department [address] [place] [phone] Denis Gibson PA [address] [place] [address] Cervicalgia (Primary Dx) Social History Tobacco Use Types [...] Description 11/18/2024 8:30 AM EDT Office Visit [facility] at [address] [address] Rajendra Edward MD [address] [place] [phone] South@ [email or web address] documented as of this encounter Results * MRI CERVICAL SPINE (BONE) WITHOUT CONTRAST (02/16/2022 9:33 AM EST) Anatomical Region Laterality Modality C-spine Magnetic Resonan ce 02/18/2022 9:27 AM EST Impressions 02/18/2022 9:57 AM EST Cervical spine degenerative changes as described, most notable for moderate foraminal stenosis on the right at C3-C4 and right at C5-C6. No evidence of high-grade spinal canal stenosis or focal cord signal abnormality. Narrative 02/18/2022 9:57 AM EST MRI CERVICAL SPINE (BONE) WITHOUT CONTRAST TECHNIQUE: MRI CERVICAL SPINE (BONE) WITHOUT CONTRAST Multi-sequence, multi-planar MRI of the cervical spine was performed without intravenous contrast. COMPARISON: None FINDINGS: CERVICAL SPINE: Alignment and Vertebrae: Normal alignment. No compression fracture. Marrow: No bone marrow replacing lesion. Discs and Endplates: Multilevel moderate to severe disc space narrowing, most prominent at C6-C7. Spinal Cord: No spinal cord compression or signal abnormality. Soft Tissue: Normal. No prevertebral edema. Findings by level: C2-C3: Severe left facet arthropathy. Posterior disc-osteophyte complex. No significant neural foraminal or spinal canal stenosis. C3-C4: Posterior disc-osteophyte complex. Bilateral facet arthropathy. Moderate right and mild to moderate left foraminal stenosis. No significant spinal canal stenosis. C4-C5: Posterior disc-osteophyte complex. Bilateral facet arthropathy. Mild right foraminal stenosis. Tortuosity of the left vertebral artery which extends into the lateral aspect of the left neural foramen; otherwise, no significant left foraminal stenosis. Mild spinal canal stenosis. C5-C6: Posterior disc-osteophyte complex. Bilateral facet arthropathy. Moderate right and mild left foraminal stenosis. Mild spinal canal stenosis, with mild indentation of the right ventral cord, but no definite focal cord signal abnormality. C6-C7: Posterior disc-osteophyte complex. Right facet arthropathy. No significant neural foraminal or spinal canal stenosis. C7-T1: Normal. No spinal or foraminal stenosis. Procedure Note William Carolina MD - 02/18/2022 MRI CERVICAL SPINE (BONE) WITHOUT CONTRAST TECHNIQUE: MRI CERVICAL SPINE (BONE) WITHOUT CONTRAST Multi-sequence, multi-planar MRI of the cervical spine was performedwithout intravenous contrast. COMPARISON: None FINDINGS: CERVICAL SPINE: Alignment and Vertebrae: Normal alignment. No compression fracture. Marrow: No bone marrow replacing lesion. Discs and Endplates: Multilevel moderate to severe disc space narrowing,most prominent at C6-C7. Spinal Cord: No spinal cord compression or signal abnormality. Soft Tissue: Normal. No prevertebral edema. Findings by level: C2-C3: Severe left facet arthropathy. Posterior disc-osteophyte complex.No significant neural foraminal or spinal canal stenosis. C3-C4: Posterior disc-osteophyte complex. Bilateral facet arthropathy.Moderate right and mild to moderate left foraminal stenosis. Nosignificant spinal canal stenosis. C4-C5: Posterior disc-osteophyte complex. Bilateral facet arthropathy.Mild right foraminal stenosis. Tortuosity of the left vertebral arterywhich extends into the lateral aspect of the left neural foramen;otherwise, no significant left foraminal stenosis. Mild spinal canalstenosis. C5-C6: Posterior disc-osteophyte complex. Bilateral facet arthropathy.Moderate right and mild left foraminal stenosis. Mild spinal canalstenosis, with mild indentation of the right ventral cord, but no definitefocal cord signal abnormality. C6-C7: Posterior disc-osteophyte complex. Right facet arthropathy. Nosignificant neural foraminal or spinal canal stenosis. C7-T1: Normal. No spinal or foraminal stenosis. IMPRESSION: Cervical spine degenerative changes as described, most notable formoderate foraminal stenosis on the right at C3-C4 and right at C5-C6. Noevidence of high-grade spinal canal stenosis or focal cord signalabnormality. Denis KRAUSE IMG MR XSPECIALTY Fi nal Result documented in this encounter Visit Diagnoses Diagnosis Cervicalgia- Primary Cervicalgia documented in this encounter Additional Health Concerns Infection Onset Date Last Indicated Resolved Time CoV-Risk 07/06/2022 07/06/2022 07/06/2022 3:45 PM EDT COVID-19 07/06/2022 07/06/2022 07/27/2022 1:21 AM EDT documented as of this encounter Care Teams Circuit Judge Relationship Specialty Start Date End Date Denis Gibson PA [address] [place] [address] PCP - General 12/07/20 07/28/23 Denis Gibson PA [address] [place] [address] PCP - General Physician Drying Tumbler Operator 07/29/23 Rajendra Edward MD [address] [place] [phone] South@ [facility] Primary Oncologist Hematology and Oncology 05/08/15 Park Leo, RN [address] [place] [phone] [email or web address] Primary Infusion Nurse 05/08/15 Jaylen Oshea MD [address] [place] [address] [email or web address] Referring Physician 06/01/15 Denis Gibson PA [address] [place] [address] 01/04/19 Nany Rowland, WANDER [address] [place] [address] Paty [email or web address] Nurse Navigator 04/26/24 documented as of this encounter Additional Source Comments The information contained in this document represents components of the legal health record. It is not the complete legal health record.[facility]
--- OUTSIDE RECORDS SUMMARY | 2024-11-09 13:28 | XMS_ITS | Encounter Summary ---
Author Organization [facility] Address [address] [place] [address] [place] [address] Phone Care Team Providers Care Actuarial Intern Name Role Phone Jaylen Oshea MD Primary Care Provider Rajendra Edward MD Unavailable [phone] Park Leo RN Unavailable [email or web address] Jaylen Oshea MD Unavailable [phone] Denis Gibson Unavailable + [phone] Denis Gibson Primary Care Provid er Denis Gibson Primary Care Provid er Nany Rowland RN Unavailable [email or web address] Encounter Details Date Type Department Care Team (Late st Contact Info) Description 10/02/2017 Procedure Pass [facility], Radiology Department Social History Tobacco Use Types Packs/Day Years Used Date Smoking Tobacco: Former Cigarettes Q uit: 06/22/1987 Smokeless Tobacco: Never Alcohol Use Standard Drinks/Week Comments Not Currently 0 (1 standard drink = 0.6 oz pur e alcohol) none for 30 years Sex and Gender Information Value Date Recorded Sex Assigned at Male 07/06/2022 3:03 PM EDT Legal Sex Male 1:44 PM EST Gender Identity Male 07/06/2022 3:03 PM EDT Sexual Orientation Not on file documented as of this encounter Plan of Treatment Upcoming Encounters Date Type Department Care Team (Late st Contact Info) Description 11/18/2024 8:30 AM EDT [facility] at [address] [address] Rajendra Edward MD [address] [place] [phone] South@ [facility] documented as of this encounter Visit Diagnoses Not on filedocumented in this encounter Additional Health Concerns Infection Onset Date Last Indicated Resolved Time CoV-Risk 07/06/2022 07/06/2022 07/06/2022 3:45 PM EDT COVID-19 07/06/2022 07/06/2022 07/27/2022 1:21 AM EDT documented as of this encounter Care Teams Actuarial Intern Relationship Specialty Start Date End Date Jaylen Oshea MD [address] [place] [phone] [email or web address] PCP - General 04/03/15 12/06/20 Denis Gibson PA [address] [place] [phone] PCP - General 12/07/20 07/28/23 Denis Gibson PA [address] [place] [phone] PCP - General Physician Mold Clamper 07/29/23 Rajendra Edward MD [address] [place] [phone] South@ [facility] Primary Oncologist Hematology and Oncology 05/08/15 Park Leo, RN [address] [place] [phone] [email or web address] Primary Infusion Nurse 05/08/15 Jaylen Oshea MD [address] [place] [address] [email or web address] Referring Physician 06/01/15 Denis Gibson PA [address] [place] [address] 01/04/19 Nany Rowland, RN [address] [place] [address] [email or web address] Nurse Navigator 04/26/24 documented as of this encounter Additional Source Comments The information contained in this document represents components of the legal health record. It is not the complete legal health record.[facility]
--- OUTSIDE RECORDS SUMMARY | 2024-11-09 13:28 | XMS_ITS | Encounter Summary ---
Author Organization [facility] Address [address] [facility] [address] [place] [address] Phone Care Team Providers Care Material Attendant Name Role Phone Rajendra Edward MD Unavailable Park Leo RN Unavailable [email or web address] Jaylen Oshea MD Unavailable [phone] Denis Gibson Unavailable [phone] Denis Gibson Primary Care Provid er Denis Gibson Primary Care Provid er Nany Rowland RN Unavailable [email or web address] Encounter Details Date Type Department Care Team (Late st Contact Info) Description 01/09/2022 Transcribe Orders [facility] Laboratory [address] [address] Rajendra dEward MD [address] [place] [phone] Toby [email or web address] Screening for prostate cancer Social History [...] Description 11/18/2024 8:30 AM EDT [facility] 20 [facility] 2nd [place] [address] Rajendra Edward MD [address] [place] [phone] South@ [email or web address] documented as of this encounter Results * PSA (screening) (01/09/2022 10:15 AM EDT) PSA 0.03 0 - 4.00 ng/mL [facility] Blood 01/09/2022 10:1 5 AM EDT 01/09/2022 10:27 AM EDT us Rajendra Edward MD LAB BLOOD ORDERABLES Hali l Result [facility] [address] [place] [address] documented in this encounter Visit Diagnoses Diagnosis Screening for prostate cancer Special screening for malignant neoplasm of prostate documented in this encounter Additional Health Concerns Infection Onset Date Last Indicated Resolved Time CoV-Risk 07/06/2022 07/06/2022 07/06/2022 3:45 PM EDT COVID-19 07/06/2022 07/06/2022 07/27/2022 1:21 AM EDT documented as of this encounter Care Teams Material Attendant Relationship Specialty Start Date End Date Denis Gibson PA [address] [place] [address] PCP - General 12/07/20 07/28/23 Denis Gibson PA [address] [place] [phone] PCP - General Physician Plow Holder 07/29/23 Rajendra Edward MD [address] [place] [phone] South@ [facility] Primary Oncologist Hematology and Oncology 05/08/15 Park Leo RN [address] [place] [phone] [email or web address] Primary Infusion Nurse 05/08/15 Jaylen Oshea MD [address] [place] [address] [email or web address] Referring Physician 06/01/15 Denis Gibson PA [address] [place] [address] 01/04/19 Nany Rowland RN [address] [place] [address] Paty [email or web address] Nurse Navigator 04/26/24 documented as of this encounter Additional Source Comments The information contained in this document represents components of the legal health record. It is not the complete legal health record.[facility]
--- OUTSIDE RECORDS SUMMARY | 2024-11-09 13:28 | XMS_ITS | Encounter Summary ---
Author Organization [facility] Address [address] [facility] [address] [place] [address] Phone Care Team Providers Care Three Dimensional Art Instructor Name Role Phone Rajendra Edward MD Unavailable Park Leo RN Unavailable [email or web address] Jaylen Oshea MD Unavailable [phone] Denis Gibson Unavailable [phone]- [phone] Denis Gibson Primary Care Provid er Denis Gibson Primary Care Provid er Nany Rowland RN Unavailable [email or web address] Encounter Details Date Type Department Care Team (Late st Contact Info) Description 02/24/2023 Transcribe Orders [facility] Laboratory [address] [address] Rajendra Edward MD [address] [place] [phone] [email or web address] Screening for prostate cancer (Primary Dx) Social History Tobacco Use Types Packs/Day Years Used Date Smoking Tobacco: Former Cigarettes Q uit: 06/22/1987 Smokeless Tobacco: Never Home Health Assessment: Transportation Answer Date Recorded [...] Upcoming Encounters Date Type Department Care Team ([facility] st Contact Info) Description 11/18/2024 8:30 AM EDT Office Visit [facility] [address] [address] Rajendra Edward MD [address] [place] [phone] South@ [email or web address] documented as of this encounter Results * PSA (screening) (02/24/2023 9:27 AM EST) PSA 0.12 0 - 4.00 ng/mL [facility] Comment: Test Methodology Una e801 Patient results determined by assays using different manufacturers or methods may not be comparable. Blood 02/24/2023 9:27 AM EST 02/24/2023 9:33 AM EST us Rajendra Edward MD LAB BLOOD ORDERABLES Hali suarez Result [facility] [address] [place] [address] documented in this encounter Visit Diagnoses Diagnosis Screening for prostate cancer- Primary Special screening for malignant neoplasm of prostate documented in this encounter Care Teams Three Dimensional Art Instructor Relationship Specialty Start Date End Date Denis Gibson PA [address] [place] [address] PCP - General 12/07/20 07/28/23 Denis Gibson PA [address] [place] [phone] PCP - General Physician Aqueduct And Reservoir Keeper 07/29/23 Rajendra Edward MD [address] [place] [phone] South@ [email or web address] Primary Oncologist Hematology and Oncology 05/08/15 Park Leo, WANDER [address] [place] [phone] [email or web address] Primary Infusion Nurse 05/08/15 Jaylen Oshea MD [address] [place] [address] [email or web address] Referring Physician 06/01/15 Denis Gibson PA [address] [place] [address] 01/04/19 Nany Rowland RN [address] [place] [phone] Paty [email or web address] Nurse Navigator 04/26/24 documented as of this encounter Additional Source Comments The information contained in this document represents components of the legal health record. It is not the complete legal health record.[facility]
--- OUTSIDE RECORDS SUMMARY | 2024-11-09 13:29 | XMS_ITS | Encounter Summary ---
Author Organization [facility] Address [address] [place] [address] [place] [address] Phone Care Team Providers Care Filtering Machine Tender Helper Name Role Phone Jaylen Oshea MD Primary Care Provider Rajendra Edward MD Unavailable [phone] Park Leo RN Unavailable [email or web address] Jaylen Oshea MD Unavailable [phone] Denis Gibson Unavailable + [phone] Denis Gibson Primary Care Provid er Denis Gibson Primary Care Provid er Nany Rowland RN Unavailable [email or web address] Encounter Details Date Type Department Care Team (Late st Contact Info) Description 10/02/2017 Procedure Pass [facility], Radiology Department Social History Tobacco Use Types [...] Description 11/18/2024 8:30 AM EDT Office Visit [facility] at [address] [address] Rajendra Edward MD [address] [place] [phone] South@ [facility]S AT [facility] documented as of this encounter Visit Diagnoses Not on filedocumented in this encounter Additional Health Concerns Infection Onset Date Last Indicated Resolved Time CoV-Risk 07/06/2022 07/06/2022 07/06/2022 3:45 PM EDT COVID-19 07/06/2022 07/06/2022 07/27/2022 1:21 AM EDT documented as of this encounter Care Teams Filtering Machine Tender Helper Relationship Specialty Start Date End Date Jaylen Oshea MD [address] [place] [address] [email or web address] PCP - General 04/03/15 12/06/20 Denis Gibson PA [address] [place] [phone] PCP - General 12/07/20 07/28/23 Denis Gibson PA [address] [place] [phone] PCP - General Physician Affirmative Action Specialist 07/29/23 Rajendra Edward MD [address] [place] [phone] South@ [facility] Primary Oncologist Hematology and Oncology 05/08/15 Park Leo, RN [address] [place] [phone] [email or web address] Primary Infusion Nurse 05/08/15 Jaylen Oshea MD [address] [place] [address] [email or web address] Referring Physician 06/01/15 Denis Gibson PA [address] [place] [address] 01/04/19 Nayn Rowland, RN [address] [place] [address] [email or web address] Nurse Navigator 04/26/24 documented as of this encounter Additional Source Comments The information contained in this document represents components of the legal health record. It is not the complete legal health record.[facility]
--- OUTSIDE RECORDS SUMMARY | 2024-11-09 13:29 | XMS_ITS | Encounter Summary ---
Author Organization [facility] Address [address] [facility] [address] [place] [address] Phone Care Team Providers Care Turnaround Engineer Name Role Phone Rajendra Edward MD Unavailable Park Leo RN Unavailable [email or web address] Jaylen Oshea MD Unavailable [phone] Denis Gibson Unavailable [phone] Denis Gibson Primary Care Provid er Nany Rowland RN Unavailable [email or web address] Encounter Details Date Type Department Care Team (Late st Contact Info) Description 06/09/2024 Transcribe Orders [facility] Laboratory [address] [address] Rajendra Edward MD [address] [place] [phone] Toby [email or web address] Screening for prostate cancer (Primary Dx); Prostate cancer Social History Tobacco Use Types Packs/Day [...] Description 11/18/2024 8:30 AM EDT Office Visit [facility] [address] [facility] [address] [place] [address] Rajendra Edward MD [address] [place] [phone] South@ [email or web address] documented as of this encounter Results * (ABNORMAL) Testosterone, total (06/09/2024 10:17 AM EDT) TESTOSTERONE 9(L) 249 - 836 ng/dL [facility] Blood 06/09/2024 10:1 7 AM EDT 06/09/2024 10:27 AM EDT Rajendra Edward MD LAB BLOOD ORDERABLES Hali l Result [address] [address] * (ABNORMAL) Comprehensive metabolic panel (06/09/2024 10:17 AM EDT) SODIUM 139 133 - 146 mmol/L [facility] POTASSIUM 4.5 3.3 - 5.1 mmol/L [facility] CHLORIDE 102 96 - 108 mmol/L [facility] CO2 27 21 - 35 mmol/L [facility] BUN 21(H) 6 - 19 mg/dL [facility] CREATININE 1.00 0.5 - 1.5 mg/dL [facility] GLUCOSE 85 70 - 99 mg/dL [facility] ALBUMIN 4.1 3.9 - 4.8 g/dL [facility] TOTAL PROTEIN 7.4 6.5 - 8.0 g/dL [facility] CALCIUM 9.6 8.4 - 10.3 mg/dL [facility] ALKALINE PHOSPHATASE 69 39 - 117 U/L [facility] TOTAL BILIRUBIN 0.3 0.0 - 1.2 mg/dL [facility] AST 23 0 - 37 U/L [facility] ALT 14 0 - 40 U/L [facility] GLOBULIN 3.3 1 - 4.8 g/dL [facility] EGFR 76 >59 mL/min/1.7 3m2 [facility] Comment:Estimated glomerular filtration rate calculated using the CKD-EPI refit equation. ANION GAP 15 10 - 20 mmol/L [facility] Blood 06/09/2024 10:1 7 AM EDT 06/09/2024 10:27 AM EDT Rajendra Edward MD LAB BLOOD ORDERABLES Hali l Result [address] [address] * (ABNORMAL) CBC and differential (06/09/2024 10:17 AM EDT) WBC 7.23 4.00 - 11.00 K/uL [facility] RBC 4.53 4.50 - 5.90 M/uL [facility] HGB 12.6(L) 13.5 - 17.5 g/dL [facility] HCT 39.2(L) 41.0 - 53.0 % [facility] PLT 178 150 - 450 K/uL [facility] MCV 86.5 80.0 - 100.0 fL [facility] MCH 27.8 27.0 - 31.0 pg [facility] MCHC 32.1 32.0 - 36.0 g/dL [facility] RDW 14.2 11.5 - 14.5 % [facility] MPV 11.9 8.4 - 12.0 fL [facility] NRBC 0.00 0.00 /100 WBCs [facility] ABSOLUTE NRBC 0.00 0.00 K/uL [facility] DIFF METHOD Auto [facility] NEUTS 61.3 48.0 - 76.0 % [facility] LYMPHS 26.0 18.0 - 41.0 % [facility] MONOS 10.5 4.0 - 11.0 % [facility] EOS 1.5 0.0 - 5.0 % [facility] BASOS 0.6 0.0 - 1.5 % [facility] Granulocytes, immature (%) 0.1 0.0 - 0.9 % [facility] ABSOLUTE NEUTS 4.43 1.92 - 7.60 K/uL [facility] ABSOLUTE LYMPHS 1.88 0.72 - 4.10 K/uL [facility] ABSOLUTE MONOS 0.76 0.16 - 1.10 K/uL [facility] ABSOLUTE EOS 0.11 0.00 - 0.50 K/uL [facility] ABSOLUTE BASOS 0.04 0.00 - 0.15 K/uL [facility] Granulocytes, immature 0.01 0.00 - 0.09 K/uL [facility] Blood 06/09/2024 10:1 7 AM EDT 06/09/2024 10:27 AM EDT Rajendra Edward MD LAB BLOOD ORDERABLES Hali l Result [address] [address] * PSA (screening) (06/09/2024 10:17 AM EDT) PSA 1.68 0 - 4.00 ng/mL [facility] Comment: Test Methodology Una e801 Patient results determined by assays using different manufacturers or methods may not be comparable. Blood 06/09/2024 10:1 7 AM EDT 06/09/2024 10:26 AM EDT Rajendra Edward MD LAB BLOOD ORDERABLES Hali l Result [address] [address] documented in this encounter Visit Diagnoses Diagnosis Screening for prostate cancer- Primary Special screening for malignant neoplasm of prostate Prostate cancer Malignant neoplasm of prostate documented in this encounter Care Teams Turnaround Engineer Relationship Specialty Start Date End Date Denis Gibson PA [address] [place] [phone] PCP - General Physician Online Health And Fitness Coach 07/29/23 Rajendra Edward MD [address] [place] [phone] South@ [email or web address] Primary Oncologist Hematology and Oncology 05/08/15 Park Leo, RN [address] [place] [phone] [email or web address] Primary Infusion Nurse 05/08/15 Jaylen Oshea MD [address] [place] [address] [email or web address] Referring Physician 06/01/15 Denis Gibson PA [address] [place] [address] 01/04/19 Nany Rowland, WANDER [address] [place] [phone] Paty [email or web address] Nurse Navigator 04/26/24 documented as of this encounter Additional Source Comments The information contained in this document represents components of the legal health record. It is not the complete legal health record.[facility]
== END 2024-11-09 13:37 | disposition home or self-care (01) ==
LOC: HO.HOS 12:45
PROVIDERS: Visit Provider Physician Assistant
DX: S42.302A Unspecified fracture of shaft of humerus, left arm, initial encounter for closed fracture (principal)
CPT/HCPCS: 99213

== ENCOUNTER → 2024-11-09 12:45 | Outpatient (BNVA) | payer MEDICARE, SELFPAY | PROVIDERS: Visit Provider Physician Assistant | DX: S42.302D Unspecified fracture of shaft of humerus, left arm, subsequent encounter for fracture with routine healing (principal) | CPT/HCPCS: 99212 ==

== ENCOUNTER 2024-11-30 09:03 | Outpatient (AMB) | payer OTHER, MEDICARE, SELFPAY ==
--- OUTSIDE RECORDS SUMMARY | 2015-04-12 09:26 | XMS_ITS | Encounter Summary ---
Author Organization [facility] Address [address] [facility] [address] [place] [address] Phone Care Team Providers Care Financial Analysis Manager Name Role Phone Jaylen Oshea MD Primary Care Provider + [phone] Encounter Details Date Type Department Care Team (Late st Contact Info) Description 04/12/2015 8:26 AM EST Hospital Encounter [facility], Radiology Department Unknown, Unknown, Social History [...] 4:32 AM EDT Miriam Rivas RN * [place] Suicide Severity Rating Scale (Screener/Recent Self-Report) Question [...] 4:15 PM EDT Telemedicine - audio only [facility] at [address] [address] Rajendra Edward MD [address] [place] [phone] Toby [email or web address] 02/17/2025 9:30 AM EST Office Visit [facility] at [address] [address] Rajendra Edward MD [address] [place] [phone] Toby [email or web address] Scheduled Orders Name Type Priority Associated [...] documented as of this encounter Care Teams Financial Analysis Manager Relationship Specialty Start Date End Date Jaylen Oshea MD [address] [place] [phone] [email or web address] PCP - General 04/03/15 12/06/20 documented as of this encounter Additional Source Comments The information contained in this document represents components of the legal health record. It is not the complete legal health record.[facility]
--- OUTSIDE RECORDS SUMMARY | 2015-09-13 12:00 | XMS_ITS | Encounter Summary ---
Author Organization [facility] Address [address] [facility] [address] [place] [address] Phone Care Team Providers Care Revenue Agent Name Role Phone Jaylen Oshea MD Primary Care Provider Rajendra Edward MD Unavailable [phone] Park Leo RN Unavailable [email or web address] Jaylen Oshea MD Unavailable [phone] Encounter Details Date Type Department Care Team (Late st Contact Info) Description 09/13/2015 12:00 PM EDT Hospital Encounter [facility], Radiology Department Unknown, Unknown, Social History [...] 4:32 AM EDT Miriam Rivas RN * [place] Suicide Severity Rating Scale (Screener/Recent Self-Report) Question [...] 4:15 PM EDT Telemedicine - audio only [facility] at [address] [address] Rajendra Edward MD [address] [place] [phone] Toby [email or web address] 02/17/2025 9:30 AM EST Office Visit [facility] at [address] [address] Rajendra Edward MD [address] [place] [phone] Toby [email or web address] Scheduled Orders Name Type Priority Associated [...] documented as of this encounter Care Teams Revenue Agent Relationship Specialty Start Date End Date Jaylen Oshea MD [address] [place] [address] PCP - General 04/03/15 12/06/20 Rajendra Edward MD 20 [place] [phone] South@ [email or web address] Primary Oncologist Hematology and Oncology 05/08/15 Park Leo RN [address] [place] [phone] [email or web address] Primary Infusion Nurse 05/08/15 Jaylen Oshea MD [address] [place] [address] Referring Physician 06/01/15 documented as of this encounter Additional Source Comments The information contained in this document represents components of the legal health record. It is not the complete legal health record.[facility]
--- OUTSIDE RECORDS SUMMARY | 2015-09-13 13:20 | XMS_ITS | Encounter Summary ---
Author Organization [facility] Address [address] [facility] [address] [place] [address] Phone Care Team Providers Care Farm Reporter Name Role Phone Jaylen Oshea MD Primary Care Provider Rajendra Edward MD Unavailable [phone] Park Leo RN Unavailable [email or web address] Jaylen Oshea MD Unavailable [phone] Encounter Details Date Type Department Care Team (Late st Contact Info) Description 09/13/2015 1:20 PM EDT Hospital Encounter [facility], Radiology Department Unknown, Unknown, Social History [...] 4:32 AM EDT Miriam Rivas RN * [place] Suicide Severity Rating Scale (Screener/Recent Self-Report) Question [...] 4:15 PM EDT Telemedicine - audio only [facility] at [address] [address] Rajendra Edward MD [address] [place] [phone] Toby [email or web address] 02/17/2025 9:30 AM EST Office Visit [facility] at [address] [address] Rajendra Edward MD 20 [place] [phone] Toby [email or web address] Scheduled Orders Name Type Priority Associated [...] documented as of this encounter Care Teams Farm Reporter Relationship Specialty Start Date End Date Jaylen Oshea MD [address] [place] [address] [email or web address] PCP - General 04/03/15 12/06/20 Rajendra Edward MD [address] [place] [phone] South@ [email or web address] Primary Oncologist Hematology and Oncology 05/08/15 Park Leo, RN 20 [place] [phone] [email or web address] Primary Infusion Nurse 05/08/15 Jaylen Oshea MD [address] [place] [address] [email or web address] Referring Physician 06/01/15 documented as of this encounter Additional Source Comments The information contained in this document represents components of the legal health record. It is not the complete legal health record.[facility]
--- OUTSIDE RECORDS SUMMARY | 2018-01-13 13:00 | XMS_ITS | Encounter Summary ---
Author Organization [facility] Address [address] [facility] [address] [place] [address] Phone Care Team Providers Care File Drawer Finisher Name Role Phone Jaylen Oshea MD Primary Care Provider + [phone] Rajendra Edward MD Unavailable [phone] Park Loe RN Unavailable [email or web address] Jaylen Oshea MD Unavailable [phone] Reason for Referral * MRI/CAT Scan - Closed Specialty Diagnoses / Procedures Referred By Contac t Referred To Contact Radiology Diagnoses Prostate cancer metastatic to multiple sites Procedures CT Abdomen/Pelvis CT CHEST Rajendra Edward MD Phone: tel: fax: mailto:South @[facility] Referral ID Status Reason Start Date Expiration Date Visits Re quested Visits Authorized [id number] Closed 10/02/2017 10/02/2018 1 1 * MRI/CAT Scan - Closed Specialty Diagnoses / Procedures Referred By Contmurray t Referred To Contact Radiology Diagnoses Prostate cancer metastatic to multiple sites Procedures CT Chest CT ABDOMEN/PELVIS Rajendra Edward MD Phone: tel: fax: mailto:South @[facility] Referral ID Status Reason Start Date Expiration Date Visits Re quested Visits Authorized [id number] Closed 10/02/2017 02/13/2018 1 1 Reason for Visit * MRI/CAT Scan - Closed Specialty Diagnoses / Procedures Referred By Jase dow Referred To Contact Radiology Diagnoses Prostate cancer metastatic to multiple sites Procedures CT Chest CT ABDOMEN/PELVIS Rajendra Edward MD Phone: tel: fax: mailto:South @[facility] Referral ID Status Reason Start Date Expiration Date Visits Re quested Visits Authorized [id number] Closed 10/02/2017 02/13/2018 1 1 Encounter Details Date Type Department Care Team (Late st Contact Info) Description 01/13/2018 1:00 PM EDT Hospital Encounter [facility], Radiology Department Rajendra Edward MD [address] [place] [phone] Jessenia [email or web address] Social History Tobacco Use Types Packs/Day [...] 4:32 AM EDT Miriam Rivas RN * [place] Suicide Severity Rating Scale (Screener/Recent Self-Report) Question [...] 4:15 PM EDT Telemedicine - audio only [facility] at [address] [address] Rajendra Edward MD [address] [place] [phone] [email or web address] [email or web address] 02/17/2025 9:30 AM EST Office Visit [facility] at [address] [address] Rajendra Edward MD [address] [place] [phone] [email or web address] Scheduled Orders Name Type Priority Associated [...] documented as of this encounter Care Teams File Drawer Finisher Relationship Specialty Start Date End Date Jaylen Oshea MD [address] [place] [address] [email or web address] PCP - General 04/03/15 12/06/20 Rajendra Edward MD [address] [place] [phone] South@ [email or web address] Primary Oncologist Hematology and Oncology 05/08/15 Park Leo, RN [address] [place] [phone] [email or web address] Primary Infusion Nurse 05/08/15 Jaylen Oshea MD [address] [place] [address] [email or web address] Referring Physician 06/01/15 documented as of this encounter Additional Source Comments The information contained in this document represents components of the legal health record. It is not the complete legal health record.[facility]
--- NOTE | 2024-11-30 09:07 | MHC.OFFVIS ---
Intake Visit Reasons: OV - left humerus fx, DOI 10/29/24 Intake Note: Candelario is a 79 year old right hand dominant male who presents today with a sling for a follow up appointment for his left humerus fracture, DOI 10/29/24. At his last visit he was given a thermal molded brace and to keep the sling for support. Patient reports the upper part of his arm is better is just from the elbow down he is having pain. Allergies bicalutamide Allergy (Mild, Verified 11/30/24 09:16) Unknown Iodinated Contrast Media Allergy (Mild, Verified 11/30/24 09:16) Unknown HPI HPI OV - left humerus fx, DOI 10/29/24: Details: Mr. Brock is an 79-year-old male who presents to the office today for routine follow up of a left midshaft humeral fracture that he sustained on 10/29/2024. At his last appointment on 11/09/24 the patient was re fit for the thermal molded humerus brace. While he presents to the office today he is wearing this properly and in good positioning in relation to the fracture site. At his initial evaluation appointment on 11/02/2024 he was instructed to wear the thermal molded brace at all times and to remain in the sling during ambulation for safety but was encouraged to come out and let the arm hang. He has been using tramadol 50 mg p.o. q.i.d. to assist with pain. He is looking for a refill of this medication. Patient also reports elbow pain. [facility] Medical History Weak urinary stream Nocturia Metastatic malignant neoplasm to prostate Microscopic hematuria Social History Alcohol intake: never Patient Tobacco Use Status: Never used Tobacco Current occupational status: retired Current occupation: right hand dominant Review of Systems Const All systems reviewed & are unremarkable except as noted in HPI and below Physical Exam Const General: cooperative, healthy appearing and no acute distress Resp Effort & Inspection: normal respiratory effort and able to speak in complete sentences Extrem Other: Left upper extremity resolving ecchymosis circumferentially about the humerus. Remnants of a large hematoma noted over the fracture site. Patient reports deltoid sensation is intact. He is able to flex and extend at the wrist with weakness. Able to extend and close all digits. Able to perform finger adduction and abduction, finger cross, okay sign and thumbs up without deficit. Sensation is reportedly intact at all digits. Radial pulse intact. Psych Appearance: grossly normal Mental Status: mental status grossly normal Attitude: cooperative Assessment & Plan Assessment & Plan (1) Left humeral fracture: Code(s): S42.302A - Unspecified fracture of shaft of humerus, left arm, initial encounter for closed fracture Category: Medical Plan Mr. Brock is an 79-year-old male who presents to the office today for routine follow up of a left midshaft humeral fracture that he sustained on 10/29/2024. At his last appointment on 11/09/24 the patient was re fit for the thermal molded humerus brace. While he presents to the office today he is wearing this properly and in good positioning in relation to the fracture site. At his initial evaluation appointment on 11/02/2024 he was instructed to wear the thermal molded brace at all times and to remain in the sling during ambulation for safety but was encouraged to come out and let the arm hang. He has been using tramadol 50 mg p.o. q.i.d. to assist with pain. He is looking for a refill of this medication. Patient also reports elbow pain. While in the office today, I have recommended that the patient progress to physical therapy to work on gentle range of motion of the hand, wrist, elbow and shoulder. I have encouraged the patient to come out of the sling to allow for motion of the elbow as there has been some stiffness to develop and he is having pain. He is to remain nonweightbearing left upper extremity. No use of the left upper extremity except for performing exercises instructed by physical therapy. He will continue wearing the thermal molded humeral brace for the next 3 weeks. I have also placed an order for formal physical therapy in which the patient will attend through the [place]. he will follow up in 6 weeks with repeat x-rays, sooner if needed. X-rays of the left humerus which were obtained while in the office today and were reviewed by me, Tessa Alexander PA-C, revealed bone callus formation surrounding the midshaft humeral fracture. Orders: Orders XR humerus LT Today S42.302A - Unspecified fracture of shaft of humerus, left arm, initial encounter for closed fracture PT Evaluation and Treatment Today S42.302A - Unspecified fracture of shaft of humerus, left arm, initial encounter for closed fracture Coding Level of Care Code Global (80760) Diagnoses Left humeral fracture S42.302A
--- OUTSIDE RECORDS SUMMARY | 2024-11-30 11:18 | XMS_ITS | Encounter Summary ---
Author Organization [facility] Address [address] [facility] [address] [place] [address] Phone Care Team Providers Care Production Generalist Name Role Phone Rajendra Edward MD Unavailable [phone] Park Leo RN Unavailable [email or web address] Jaylen Oshea MD Unavailable [phone] Denis Gibson Unavailable [phone] Denis Gibson Primary Care Provid er Nany Rowland RN Unavailable [email or web address] Encounter Details Date Type Department Care Team (Late st Contact Info) Description 12/08/2023 Transcribe Orders [facility] Laboratory [address] [address] Rajendra Edward MD [address] [place] [phone] [email or web address] Screening for prostate cancer (Primary Dx) [...] 4:15 PM EDT Telemedicine - audio only [facility] Cancer [address] [address] Rajendra Edward MD [address] [place] [phone] Toby [email or web address] 02/17/2025 9:30 AM EST Office Visit [facility] at [address] [address] Rajendra Edward MD [address] [place] [phone] [email or web address] documented as of this encounter Results * PSA (screening) (12/08/2023 10:15 AM EDT) PSA 0.49 0 - 4.00 ng/mL [facility] Comment: Test Methodology Una e801 Patient results determined by assays using different manufacturers or methods may not be comparable. Blood 12/08/2023 10:1 5 AM EDT 12/08/2023 10:32 AM EDT us Rajendra Edward MD LAB BLOOD ORDERABLES Hali suarez Result [facility] [address] [place], [place] [phone] documented in this encounter Visit Diagnoses Diagnosis Screening for prostate cancer- Primary Special screening for malignant neoplasm of prostate documented in this encounter Care Teams Production Generalist Relationship Specialty Start Date End Date Denis Gibson PA [address] [place] [phone] PCP - General Physician University Librarian 07/29/23 Rajendra Edward MD [address] [place] [phone] [email or web address] Primary Oncologist Hematology and Oncology 05/08/15 Park Leo, RN [address] [place] [phone] [email or web address] Primary Infusion Nurse 05/08/15 Jaylen Oshea MD [address] [place] [address] [email or web address] Referring Physician 06/01/15 Denis Gibson PA [address] [place] [address] 01/04/19 Nany Rowland, WANDER [address] [place] [address] Paty [email or web address] Nurse Navigator 04/26/24 documented as of this encounter Additional Source Comments The information contained in this document represents components of the legal health record. It is not the complete legal health record.[facility]
--- OUTSIDE RECORDS SUMMARY | 2024-11-30 11:18 | XMS_ITS | Encounter Summary ---
Author Organization [facility] Address [address] [facility] [address] [place] [address] Phone Care Team Providers Care Horticulture Teacher Name Role Phone Rajendra Edward MD Unavailable [phone] Park Leo RN Unavailable [email or web address] Jaylen Oshea MD Unavailable [phone] Denis Gibson Unavailable [phone] Denis Gibson Primary Care Provid er Nany Rowland RN Unavailable [email or web address] Encounter Details Date Type Department Care Team (Late st Contact Info) Description 11/10/2024 Transcribe Orders [facility] Laboratory [address] [address] Rajendra Edward MD [address] [place] [phone] Toby [email or web address] Screening for prostate cancer (Primary Dx); Prostate cancer metastatic to multiple sites Social History Tobacco Use Types Packs/Day Years [...] 4:15 PM EDT Telemedicine - audio only [facility] [place] at [address] [address] Rajendra Edward MD [address] [place] [phone] Toby [email or web address] 02/17/2025 9:30 AM EST Office Visit [facility] and [facility] [place] at [address] [address] Rajendra Edward MD [address] [place] [phone] (work) Toby [email or web address] DU documented as of this encounter Results * (ABNORMAL) CBC and differential (11/10/2024 10:56 AM EDT) WBC 5.87 4.00 - 11.00 K/uL [facility] RBC 4.63 4.50 - 5.90 M/uL [facility] HGB 13.4(L) 13.5 - 17.5 g/dL [facility] HCT 40.7(L) 41.0 - 53.0 % [facility] PLT 264 150 - 450 K/uL [facility] MCV 87.9 80.0 - 100.0 fL [facility] MCH 28.9 27.0 - 31.0 pg [facility] MCHC 32.9 32.0 - 36.0 g/dL [facility] RDW 14.4 11.5 - 14.5 % [facility] MPV 11.9 8.4 - 12.0 fL [facility] NRBC 0.00 0.00 /100 WBCs [facility] ABSOLUTE NRBC 0.00 0.00 K/uL [facility] DIFF METHOD Auto [facility] NEUTS 61.0 48.0 - 76.0 % [facility] LYMPHS 24.0 18.0 - 41.0 % [facility] MONOS 12.6(H) 4.0 - 11.0 % [facility] EOS 1.4 0.0 - 5.0 % [facility] BASOS 0.7 0.0 - 1.5 % [facility] Granulocytes, immature (%) 0.3 0.0 - 0.9 % [facility] ABSOLUTE NEUTS 3.58 1.92 - 7.60 K/uL [facility] ABSOLUTE LYMPHS 1.41 0.72 - 4.10 K/uL [facility] ABSOLUTE MONOS 0.74 0.16 - 1.10 K/uL [facility] ABSOLUTE EOS 0.08 0.00 - 0.50 K/uL [facility] ABSOLUTE BASOS 0.04 0.00 - 0.15 K/uL [facility] Granulocytes, immature 0.02 0.00 - 0.09 K/uL [facility] Blood 11/10/2024 10:5 6 AM EDT 11/10/2024 11:02 AM EDT Rajendra Edward MD LAB BLOOD ORDERABLES Hali l Result Performing Organization Address City/[facility]/ZIP Co de Phone Number [address] [address] * (ABNORMAL) Comprehensive metabolic panel (11/10/2024 10:56 AM EDT) SODIUM 135 133 - 146 mmol/L [facility] POTASSIUM 5.0 3.3 - 5.1 mmol/L [facility] CHLORIDE 99 96 - 108 mmol/L [facility] CO2 25 21 - 35 mmol/L [facility] BUN 21(H) 6 - 19 mg/dL [facility] CREATININE 0.90 0.5 - 1.5 mg/dL [facility] GLUCOSE 102(H) 70 - 99 mg/dL [facility] ALBUMIN 4.1 3.9 - 4.8 g/dL [facility] TOTAL PROTEIN 7.5 6.5 - 8.0 g/dL [facility] CALCIUM 9.6 8.4 - 10.3 mg/dL [facility] ALKALINE PHOSPHATASE 161(H) 39 - 117 U/L [facility] TOTAL BILIRUBIN 0.4 0.0 - 1.2 mg/dL [facility] AST 19 0 - 37 U/L [facility] ALT 32 0 - 40 U/L [facility] GLOBULIN 3.4 1 - 4.8 g/dL [facility] EGFR 86 >59 mL/min/1.7 3m2 [facility] Comment:Estimated glomerular filtration rate calculated using the CKD-EPI refit equation. ANION GAP 16 10 - 20 mmol/L [facility] Blood 11/10/2024 10:5 6 AM EDT 11/10/2024 11:02 AM EDT Rajendra Edward MD LAB BLOOD ORDERABLES Hali l Result [address] [address] * (ABNORMAL) Testosterone, total (11/10/2024 10:56 AM EDT) TESTOSTERONE 11(L) 249 - 836 ng/dL [facility] Blood 11/10/2024 10:5 6 AM EDT 11/10/2024 11:02 AM EDT Rajendra Edward MD LAB BLOOD ORDERABLES Hali l Result Performing Organization Address City/[facility]/ZIP Co de Phone Number [address] [address] * (ABNORMAL) PSA (screening) (11/10/2024 10:56 AM EDT) PSA 5.46(H) 0 - 4.00 ng/mL [facility] Comment: Test Methodology Una e801 Patient results determined by assays using different manufacturers or methods may not be comparable. Blood 11/10/2024 10:5 6 AM EDT 11/10/2024 11:02 AM EDT Rajendra Edward MD LAB BLOOD ORDERABLES Hali l Result Performing Organization Address City/[facility]/ZIP Co de Phone Number [address] [address] documented in this encounter Visit Diagnoses Diagnosis Screening for prostate cancer- Primary Special screening for malignant neoplasm of prostate Prostate cancer metastatic to multiple sites documented in this encounter Care Teams Horticulture Teacher Relationship Specialty Start Date End Date Denis Gibson PA [address] [place] [address] PCP - General Physician Count Team Clerk 07/29/23 Rajendra Edward MD [address] [place] [address] South@ [facility] Primary Oncologist Hematology and Oncology 05/08/15 Park Loe, RN [address] [place] [phone] [email or web address] Primary Infusion Nurse 05/08/15 Jaylen Oshea MD [address] [place] [address] [email or web address] Referring Physician 06/01/15 Denis Gibson PA [address] [place] [address] 01/04/19 Nnay Rowland, WANDER [address] [place] [address] Paty [email or web address] Nurse Navigator 04/26/24 documented as of this encounter Additional Source Comments The information contained in this document represents components of the legal health record. It is not the complete legal health record.[facility]
--- OUTSIDE RECORDS SUMMARY | 2024-11-30 11:19 | XMS_ITS | Encounter Summary ---
Author Organization [facility] Address [address] [facility] [address] [place] [address] Phone Care Team Providers Care Medical Surgical Tech Name Role Phone Rajendra Edward MD Unavailable [phone] Park Leo RN Unavailable [email or web address] Jaylen Oshea MD Unavailable [phone] Denis Gibson Unavailable + [phone] Denis Gibson Primary Care Provid er Denis Gibson Primary Care Provid er Nany Rowland RN Unavailable [email or web address] Reason for Referral * MRI/CAT Scan - Closed Specialty Diagnoses / Procedures Referred By Contac t Referred To Contact Radiology Diagnoses Spinal stenosis, lumbar region with neurogenic claudication Procedures MRI Lumbar Spine System, Provider Not In, [facility] [address] [address] Referral ID Status Reason Start Date Expiration Date Visits Re quested Visits Authorized [id number] Closed 07/18/2023 09/14/2024 1 1 Encounter Details Date Type Department Care Team (Late st Contact Info) Description 07/18/2023 Transcribe Orders [facility] Department [address] [place] [address] System, Provider Not In, [facility] [address] [address] Spinal stenosis, lumbar region with neurogenic claudication [...] 4:15 PM EDT Telemedicine - audio only [facility] at [address] [address] Rajendra Edward MD [address] [place] [phone] Toby [email or web address] 02/17/2025 9:30 AM EST Office Visit [facility] at [facility] [address] [facility] 2nd [place] [address] Rajendra Edward MD 20 [place] [phone] Toby [email or web address] documented as of this encounter Results * [...] claudication documented in this encounter Care Teams Medical Surgical Tech Relationship Specialty Start Date End Date Denis Gibson PA [address] [place] [address] PCP - General 12/07/20 07/28/23 Denis Gibson PA [address] [place] [address] PCP - General Physician Soccer Ball Assembler 07/29/23 Rajendra Edward MD [address] [place] [phone] South@ [facility] Primary Oncologist Hematology and Oncology 05/08/15 Park Leo, WANDER [address] [place] [phone] [email or web address] Primary Infusion Nurse 05/08/15 Jaylen Oshea MD [address] [place] [address] [email or web address] Referring Physician 06/01/15 Denis Gibson PA [address] [place] [address] 01/04/19 Nany Rowland RN [address] [place] [address] Paty [email or web address] Nurse Navigator 04/26/24 documented as of this encounter Additional Source Comments The information contained in this document represents components of the legal health record. It is not the complete legal health record.[facility]
--- OUTSIDE RECORDS SUMMARY | 2024-11-30 11:19 | XMS_ITS | Encounter Summary ---
Author Organization [facility] Address [address] [facility] [address] [place] [address] Phone Care Team Providers Care Valver Name Role Phone Rajendra Edward MD Unavailable [phone] Park Leo RN Unavailable [email or web address] Jaylen Oshea MD Unavailable [phone] Denis Gibson Unavailable + [phone] Denis Gibson Primary Care Provid er Nany Rowland RN Unavailable [email or web address] Encounter Details Date Type Department Care Team (Late st Contact Info) Description 08/13/2023 Transcribe Orders Virtual Department [address] [place] [address] System, Provider Not In, [facility] [address] [address] Leg weakness, bilateral (Primary Dx) Social History [...] 4:15 PM EDT Telemedicine - audio only [facility] at [address] [address] Rajendra Edward MD [address] [place] [phone] Toby [email or web address] 02/17/2025 9:30 AM EST Office Visit [facility] and [facility] at [address] [address] Rajendra Edward MD [address] [place] [phone] Toby [email or web address] [place] documented as of this encounter Visit Diagnoses Diagnosis Leg weakness, bilateral- Primary Muscle weakness (generalized) documented in this encounter Care Teams Valver Relationship Specialty Start Date End Date Denis Gibson PA [address] [place] [address] PCP - General Physician Field Support Representative 07/29/23 Rajendra Edward MD [address] [place] [phone] South@ [email or web address] Primary Oncologist Hematology and Oncology 05/08/15 Park Leo RN [address] [place] [phone] [email or web address] Primary Infusion Nurse 05/08/15 Jaylen Oshea MD [address] [place] [address] [email or web address] Referring Physician 06/01/15 Denis Gibson PA [address] [place] [address] 01/04/19 Nany Rowland RN [address] [place] [address] Paty [email or web address] Nurse Navigator 04/26/24 documented as of this encounter Additional Source Comments The information contained in this document represents components of the legal health record. It is not the complete legal health record.[facility]
--- OUTSIDE RECORDS SUMMARY | 2024-11-30 11:19 | XMS_ITS | Encounter Summary ---
Author Organization [facility] Address [address] [facility] [address] [place] [address] Phone Care Team Providers Care Manager Location Name Role Phone Rajendra Edward MD Unavailable [phone] Park Leo RN Unavailable [email or web address] Jaylen Oshea MD Unavailable [phone] Denis Gibson Unavailable [phone] Denis Gibson Primary Care Provid er Denis Gibson Primary Care Provid er Nany Rowland RN Unavailable [email or web address] Encounter Details Date Type Department Care Team (Late st Contact Info) Description 07/06/2022 Procedure Pass [facility], Ct Scan - [address] [address] Social History Tobacco Use Types Packs/Day Years [...] 3:03 PM EDT Khadijah Taylor RN * [place] Suicide Severity Rating Scale (Screener/Recent Self-Report) Question Answer Date of Assessment Author 1. Wish to be (Past 1 Month) No 023 3:03 PM EDT Khadijah Taylor RN 2. Non-Specific Active Suici saul Thoughts (Past 1 Month) No 07/06/2022 3:03 PM EDT Khadijah Taylor RN 6. Suicidal Behavior (Lifetime) No 3:03 PM EDT Khadijah Taylor RN documented as of this encounter Plan of Treatment Upcoming Encounters Date Type Department Care Team (Late st Contact Info) Description 12/21/2024 4:15 PM EDT Telemedicine - audio only [facility] [place] at [address] [address] Rajendra Edward MD [address] [place] [phone] Toby [email or web address] 02/17/2025 9:30 AM EST Office Visit [facility] at [address] [address] Rajendra Edward MD [address] [place] [phone] Toby [email or web address]. [place] documented as of this encounter Visit Diagnoses Not on filedocumented in this encounter Additional Health Concerns Infection Onset Date Last Indicated Resolved Time CoV-Risk 07/06/2022 07/06/2022 07/06/2022 3:45 PM EDT COVID-19 07/06/2022 07/06/2022 07/27/2022 1:21 AM EDT documented as of this encounter Care Teams Manager Location Relationship Specialty Start Date End Date Denis Gibson PA [address] [place] [address] PCP - General 12/07/20 07/28/23 Denis Gibson PA [address] [place] [address] PCP - General Physician Lighting Fixtures Decorator 07/29/23 Rajendra Edward MD [address] [place] [phone] South@ [email or web address] Primary Oncologist Hematology and Oncology 05/08/15 Park Leo, WANDER [address] [place] [phone] [email or web address] Primary Infusion Nurse 05/08/15 Jaylen Oshea MD [address] [place] [address] Referring Physician 06/01/15 Denis Gibson PA [address] [place] [address] 01/04/19 Nany Rowland RN [address] [place] [address] Paty [email or web address] Nurse Navigator 04/26/24 documented as of this encounter Additional Source Comments The information contained in this document represents components of the legal health record. It is not the complete legal health record.[facility]
--- OUTSIDE RECORDS SUMMARY | 2024-11-30 11:19 | XMS_ITS ---
Author Organization [facility] Address 399 [facility] [address] [place] [address] Phone Care Team Providers Care Hvac Commercial Salesperson Name Role Phone Rajendra Edward MD Unavailable Park Leo RN Unavailable [email or web address] Jaylen Oshea MD Unavailable [phone] Denis Lopez Unavailable [phone] Denis Lopez Primary Care Provid er Nany Rowland RN Unavailable [email or web address] Active Problems Patient Care Coordination No te Formatting of this note migh t be different from the original. 04/26/2024 [place] in [facility] Problem Noted Date Diagnosed Date Hx [...] 07, 2020 Entered By: DENIS LOPEZ Comment: ShipEarly Product ICM model M301 serial [id number] May,. Bradycardia 01/04/2022 Prostate cancer metastatic to multiple sites Assessment & Plan (09/01/2022 4:12 PM EDT): Follows very closely and consistently with Dr Edward at [facility]. History of prostate cancer with mets [...]
--- OUTSIDE RECORDS SUMMARY | 2024-11-30 11:19 | XMS_ITS | Encounter Summary ---
Author Organization [facility] Address 399 [facility] [address] [place] [address] Phone Care Team Providers Care Tong Carrier Name Role Phone Rajendra Edward MD Unavailable [phone] Park Leo RN Unavailable [email or web address] Jalyen Oshea MD Unavailable [phone] Denis Gibson Unavailable [phone] Denis Gibson Primary Care Provid er Denis Gibson Primary Care Provid er Nany Rowland RN Unavailable [email or web address] Encounter Details Date Type Department Care Team (Late st Contact Info) Description 02/24/2023 Transcribe Orders [facility] Laboratory [address] [address] Rajendra Edward MD [address] [place] [phone] Toby [email or web address]. [place] Screening for prostate cancer (Primary Dx) [...] 4:15 PM EDT Telemedicine - audio only [facility] [place] at [address] [address] Rajendra Edward MD [address] [place] [phone] Toby [email or web address]. [place] 02/17/2025 9:30 AM EST Office Visit [facility] [place] at [address] [address] Rajendra Edward MD [address] [place] [phone] Toby [email or web address]. [place] documented as of this encounter Results * PSA (screening) (02/24/2023 9:27 AM EST) PSA 0.12 0 - 4.00 ng/mL [facility] Comment: Test Methodology Una e801 Patient results determined by assays using different manufacturers or methods may not be comparable. Blood 02/24/2023 9:27 AM EST 02/24/2023 9:33 AM EST us Rajendra Edward MD LAB BLOOD ORDERABLES Hali daniela Result [facility] [address] [place] [address] documented in this encounter Visit Diagnoses Diagnosis Screening for prostate cancer- Primary Special screening for malignant neoplasm of prostate documented in this encounter Care Teams Tong Carrier Relationship Specialty Start Date End Date Denis Gibson PA [address] [place] [address] PCP - General 12/07/20 07/28/23 Denis Gibson PA [address] [place] [phone] PCP - General Physician Jewelry Bench Worker 07/29/23 Rajendra Edward MD [address] [place] [phone] South@ [facility] Primary Oncologist Hematology and Oncology 05/08/15 Park Leo, RN [address] [place] [phone] [email or web address] Primary Infusion Nurse 05/08/15 Jaylen Oshea MD [address] [place] [address] [email or web address] Referring Physician 06/01/15 Denis Gibson PA [address] [place] [address] 01/04/19 Nany Rowland, WANDER [address] [place] [address] Paty [email or web address].[facility] Nurse Navigator 04/26/24 documented as of this encounter Additional Source Comments The information contained in this document represents components of the legal health record. It is not the complete legal health record.[facility]
--- OUTSIDE RECORDS SUMMARY | 2024-11-30 11:19 | XMS_ITS | Encounter Summary ---
Author Organization [facility] Address [address] [facility] [address] [place] [address] Phone Care Team Providers Care Quality Engineering Manager Name Role Phone Rajendra Edward MD Unavailable Park Leo RN Unavailable [email or web address] Jaylen Oshea MD Unavailable [phone] Denis Gibson Unavailable [phone] Denis Gibson Primary Care Provid er Denis Gibson Primary Care Provid er Nany Rowland RN Unavailable [email or web address] Encounter Details Date Type Department Care Team (Late st Contact Info) Description 08/31/2022 Procedure Pass [facility], Ct Scan - [address] [address] Social History Tobacco Use Types Packs/Day Years [...] 4:15 PM EDT Telemedicine - audio only [facility] at [address] [address] Rajendra Edward MD [address] [place] [phone] Toby [email or web address] 02/17/2025 9:30 AM EST Office Visit [facility] at [address] [address] Rajendra Edward MD [address] [place] [phone] Toby [email or web address] documented as of this encounter Visit Diagnoses Not on filedocumented in this encounter Care Teams Quality Engineering Manager Relationship Specialty Start Date End Date Denis Gibson PA [facility] [place] [address] PCP - General 12/07/20 07/28/23 Denis Gibson PA [address] [place] [address] PCP - General Physician Customer Support Technician 07/29/23 Rajendra Edward MD [address] [place] [phone] South@ [email or web address] Primary Oncologist Hematology and Oncology 05/08/15 Park Leo, RN [address] [place] [phone] [email or web address] Primary Infusion Nurse 05/08/15 Jaylen Oshea MD [address] [place] [address] [email or web address] Referring Physician 06/01/15 Denis Gibson PA [address] [place] [address] 01/04/19 Nany Rowland, WANDER [address] [place] [address] Paty [email or web address] Nurse Navigator 04/26/24 documented as of this encounter Additional Source Comments The information contained in this document represents components of the legal health record. It is not the complete legal health record.[facility]
--- OUTSIDE RECORDS SUMMARY | 2024-11-30 11:19 | XMS_ITS | Encounter Summary ---
Author Organization [facility] Address [address] [facility] [address] [place] [address] Phone Care Team Providers Care Inletter Name Role Phone Rajendra Edward MD Unavailable Park Leo RN Unavailable [email or web address] Jaylen Oshea MD Unavailable [phone] Denis Gibson Unavailable [phone] Denis Gibson Primary Care Provid er Nany Rowland RN Unavailable [email or web address] Encounter Details Date Type Department Care Team (Late st Contact Info) Description 12/04/2023 Transcribe Orders [facility] Laboratory [address] [address] Rajendra Edward MD [address] [place] [address] Toby [email or web address]. [place] Prostate cancer metastatic to multiple sites [...] 4:15 PM EDT Telemedicine - audio only [facility] Cancer [address] [address] Rajendra Edward MD [address] [place] [phone] Toby [email or web address]. [place] 02/17/2025 9:30 AM EST Office Visit [facility] at [address] [address] Rajendra Edward MD [address] [place] [phone] Toby [email or web address]. [place] Scheduled Orders Name Type Priority Associated [...] Primary documented in this encounter Care Teams Inletter Relationship Specialty Start Date End Date Denis Gibson PA [facility] [place] [address] PCP - General Physician Breakfast Cook 07/29/23 Rajendra Edward MD [address] [place] [phone] South@ [email or web address] Primary Oncologist Hematology and Oncology 05/08/15 Park Leo RN [address] [place] [phone] [email or web address] Primary Infusion Nurse 05/08/15 Jaylen Oshea MD [address] [place] [address] Referring Physician 06/01/15 Denis Gibson PA [address] [place] [address] 01/04/19 Nany Rowland RN [address] [place] [phone] Paty [email or web address] Nurse Navigator 04/26/24 documented as of this encounter Additional Source Comments The information contained in this document represents components of the legal health record. It is not the complete legal health record.[facility]
--- OUTSIDE RECORDS SUMMARY | 2024-11-30 11:19 | XMS_ITS | Encounter Summary ---
Author Organization [facility] Address [address] [facility] [address] [place] [address] Phone Care Team Providers Care Oil Pumper Name Role Phone Rajendra Edward MD Unavailable Park Leo RN Unavailable [email or web address] Jaylen Oshea MD Unavailable [phone] Denis Gibson Unavailable + [phone] Denis Gibson Primary Care Provid er Denis Gibson Primary Care Provid er Nany Rowland RN Unavailable [email or web address] Encounter Details Date Type Department Care Team (Late st Contact Info) Description 09/02/2022 Procedure Pass [place] Admitting Dept - Virtual Department [address] [place] [id number] Social History Tobacco Use Types Packs/Day Years Used Date Smoking Tobacco: Former Cigarettes Q uit: 06/22/1987 Smokeless Tobacco: Never Education Answer Date Recorded Are you interested in more education? Not on tuloi e 07/12/2022 Are you concerned about learning? [...] 4:15 PM EDT Telemedicine - audio only [facility] at [address] [address] Rajendra Edward MD [address] [place] [phone] Toby [email or web address] 02/17/2025 9:30 AM EST Office Visit [facility] and [facility] [place] at [address] [address] Rajendra Edward MD [address] [place] [phone] Toby [email or web address] documented as of this encounter Visit Diagnoses Not on filedocumented in this encounter Care Teams Oil Pumper Relationship Specialty Start Date End Date Denis Gibson [place] [facility] [place] [address] PCP - General 12/07/20 07/28/23 Denis Gibson PA [address] [place] [phone] PCP - General Physician Surtass Analyst 07/29/23 Rajendra Edward MD [address] [place] [phone] South@ [email or web address] Primary Oncologist Hematology and Oncology 05/08/15 Park Leo, RN [address] [place] [phone] [email or web address] Primary Infusion Nurse 05/08/15 Jaylen Oshea MD [address] [place] [address] [email or web address] Referring Physician 06/01/15 Denis Gibson PA [address] [place] [address] 01/04/19 Nany Rowland, WANDER [address] [place] [phone] Paty [email or web address] Nurse Navigator 04/26/24 documented as of this encounter Additional Source Comments The information contained in this document represents components of the legal health record. It is not the complete legal health record.[facility]
--- OUTSIDE RECORDS SUMMARY | 2024-11-30 11:19 | XMS_ITS | Encounter Summary ---
Author Organization [facility] Address [address] [facility] [address] [place] [address] Phone Care Team Providers Care Integrated Marketing Manager Name Role Phone Rajendra Edward MD Unavailable Park Leo RN Unavailable [email or web address] Jaylen Oshea MD Unavailable [phone] Denis Gibson Unavailable + [phone] Denis Gibson Primary Care Provid er Denis Gibson Primary Care Provid er Nany Rowland RN Unavailable [email or web address] Encounter Details Date Type Department Care Team (Late st Contact Info) Description 06/30/2023 Procedure Pass [facility] Endoscopy Admitting Dept Virtual Department [address] [place] [address] Social History Tobacco Use Types Packs/Day Years [...] 4:15 PM EDT Telemedicine - audio only [facility] at [address] [address] Rajendra Edward MD [address] [place] [phone] Toby [email or web address]. [place] 02/17/2025 9:30 AM EST Office Visit [facility] and [facility] at [address] [address] Rajendra Edward MD [address] [place] [phone] Toby [email or web address]. [place] documented as of this encounter Visit Diagnoses Not on filedocumented in this encounter Care Teams Integrated Marketing Manager Relationship Specialty Start Date End Date Denis Gibson PA [address] [place] [address] PCP - General 12/07/20 07/28/23 Denis Gibson [place] [facility] [place] [address] PCP - General Physician Business Development Representative 07/29/23 Rajendra Edward MD [address] [place] [phone] South@ [email or web address] Primary Oncologist Hematology and Oncology 05/08/15 Park Leo RN [address] [place] [phone] [email or web address] Primary Infusion Nurse 05/08/15 Jaylen Oshea MD [address] [place] [address] [email or web address] Referring Physician 06/01/15 Denis Gibson PA [address] [place] [address] 01/04/19 Nany Rowland RN [address] [place] [phone] Paty [email or web address] Nurse Navigator 04/26/24 documented as of this encounter Additional Source Comments The information contained in this document represents components of the legal health record. It is not the complete legal health record.[facility]
--- OUTSIDE RECORDS SUMMARY | 2024-11-30 11:19 | XMS_ITS | Encounter Summary ---
Author Organization [facility] Address [address] [facility] [address] [place] [address] Phone Care Team Providers Care Shortage Worker Name Role Phone Rajendra Edward MD Unavailable Park Leo RN Unavailable [email or web address] Jaylen Oshea MD Unavailable [phone] Denis Gibson Unavailable +- [phone] Denis Gibson Primary Care Provid er Denis Gibson Primary Care Provid er Nany Rowland RN Unavailable [email or web address] Encounter Details Date Type Department Care Team (Late st Contact Info) Description 08/30/2022 Procedure Pass [facility], Ct Scan - [address] [address] Social History Tobacco Use Types Packs/Day Years [...] 4:32 AM EDT Miriam Rivas RN * [place] Suicide Severity Rating Scale (Screener/Recent Self-Report) Question [...] 4:15 PM EDT Telemedicine - audio only [facility] at [address] [address] Rajendra Edward MD [address] [place] [phone] Toby [email or web address] 02/17/2025 9:30 AM EST Office Visit [facility] at [address] [address] Rajendra Edward MD [address] [place] [phone] Toby [email or web address]. [place] documented as of this encounter Visit Diagnoses Not on filedocumented in this encounter Care Teams Shortage Worker Relationship Specialty Start Date End Date Denis Gibson PA [address] [place], [place] [phone] PCP - General 12/07/20 07/28/23 Denis Gibson PA [address] [place] [address] PCP - General Physician Homebound Teacher 07/29/23 Rajendra Edward MD [address] [place] [phone] South@ [email or web address] Primary Oncologist Hematology and Oncology 05/08/15 Park Leo, WANDER [address] [place] [phone] [email or web address] Primary Infusion Nurse 05/08/15 Jaylen Oshea MD [address] [place] [address] [email or web address] Referring Physician 06/01/15 Denis Gibson PA [address] [place] [address] 01/04/19 Nany Rowland RN [address] [place] [phone] Paty [email or web address] Nurse Navigator 04/26/24 documented as of this encounter Additional Source Comments The information contained in this document represents components of the legal health record. It is not the complete legal health record.[facility]
--- OUTSIDE RECORDS SUMMARY | 2024-11-30 11:19 | XMS_ITS | Clinical Summary ---
Author Organization [facility] Address [address] [facility] [address] [place] [address] Phone Care Team Providers Care Zigzag Elastic Attacher Name Role Phone Rajendra Edward MD Unavailable Park Leo RN Unavailable [email or web address] Jaylen Oshea MD Unavailable [phone] Dilan Lopez Unavailable [phone] Dilan Lopez Primary Care Provid er Nany Rowland RN Unavailable [email or web address] Allergies Active Allergy Reactions Criticality Noted Date Comments Bicalutamide Vomiting Low 05/04/2015 Iodinated Contrast Media Hives,Rash Low 01/22/2006 Medications Ca cit-D3-mag#11-zin j-owah-bvo-bor (CALTRATE 600+D) 600 mg calcium- 800 unit-50 mg Tab Take 1 tablet by mouth daily. Active acetaminophen (TYLENOL) 325 mg tablet Take 2 tablets (650 mg total) by mouth every 8 (eight) hours as needed. 0 3 Active hydroCHLOROthiazi de (HYDRODIURIL) 12.5 MG tablet Take 12.5 mg by mouth daily. 3 Active apixaban (ELIQUIS) 5 mg tablet Take 1 tablet by mouth 2 (two) times a day. To hold x 2 days 3 Active lisinopril (PRINIVIL,ZESTRIL ) 10 MG tablet Take 20 mg by mouth daily. Active carboxymethylcell ulose (THERATEARS) 1 % DpGe Place into each [...] within 12 hours or as directed by MD Active denosumab (PROLIA) 60 mg/mL Syrg subcutaneous syringe Inject 1 mL (60 mg total) under the skin once for 1 dose. 5 Active mineral oil/petrolatum,wh ite (WHITE PETROLATUM-MINERA L OIL OPHT) Apply to eye. 5 Active [...] with food. 120 tablet 5 5 Active Active Problems Patient Care Coordination No te Formatting of this note migh t be different from the original. 04/26/2024 [place] [facility] in [facility] Problem Noted Date Diagnosed Date Hx of [...] 07, 2020 Entered By: DILAN LOPEZ Comment: [employer] Product ICM model M301 serial [id number] may,. Bradycardia 01/04/2022 Prostate cancer metastatic to multiple sites Assessment & Plan (09/01/2022 4:12 PM EDT): Follows very closely and consistently with Dr Edward at [facility]. History of prostate cancer with mets to [...] Encounters Date Type Department Care Team Description 11/18/2024 8:30 AM EDT Office Visit [facility] [address] [place] [address] [address] Rajendra Edward MD Prostate cancer metastatic to multiple sites (Primary Dx) 11/10/2024 10:56 AM EDT - 11/10/2024 11:59 PM EDT Hospital Encounter [facility] [address] [address] Rajendra Edward MD Discharge Disposition: Home or Self Care 11/10/2024 Transcribe Orders [facility] [address] [address] Rajendra Edward MD Screening for prostate cancer (Primary Dx); Prostate cancer metastatic to multiple sites 10/12/2024 Refill [facility] [address] [address] Nany Rowland, antique auto museum maintenance worker Refill 10/12/2024 Telephone [facility] [address] [address] Leslie Miguel refill; Medication Management from Last 3 Months Immunizations Immunization Administration [...] Sign Reading Time Taken Comments Blood Pressure 123/69 11/18/2024 8:14 AM EDT Pulse 88 11/18/2024 8:14 AM EDT Temperature 36.8 C (98.2 F) 11/18/2024 8:13 AM EDT Respiratory Rate 18 11/18/2024 8:14 AM EDT Oxygen Saturation 96% 11/18/2024 8:14 AM EDT Inhaled Oxygen Concentration - - Weight 95.3 kg (210 lb 1.6 oz) 11/18/2024 8:14 A M EDT Height 174.4 cm (5' 8.66 ) 06/15/2024 9:48 AM ED T Body Mass Index 31.33 06/15/2024 9:48 AM EDT Plan of Treatment Upcoming Encounters Date Type Department Care Team (Late st Contact Info) Description 12/21/2024 4:15 PM EDT Telemedicine - audio only [facility] [place] at [address] [address] Rajendra Edward MD [address] [place] [phone] Toby [email or web address] 02/17/2025 9:30 AM EST Office Visit [facility] at [address] [address] Rajendra Edward MD [address] [place] [phone] [email or web address] [email or web address]. [place] Health Maintenance Due Date Last Done Comments DEPRESSION SCREENING 1957 PNEUMOCOCCAL VACCINES (50+ years) (3 of 3 - PPSV23, PCV20 or PCV21) 10/31/2014 09/05/2014, 08/27/1999 INFLUENZA VACCINE (#1) 2024 , 12/12/2022, 12/05/2021, Additional history exists BLOOD PRESSURE 05/18/2025 11/18/2024 CREATININE LEVEL 11/10/2025 11/10/2024, , 06/09/2024, Additional history exists POTASSIUM LEVEL 11/10/2025 11/10/2024, 07/16, 06/09/2024, Additional history exists Adult Td,Tdap Booster 01/08/2034 01/09/2024 , 09/27/2022, 04/09/2010, Additional history exists ZOSTER VACCINES Completed 02/15/2020, 11/16, 11/29/2008, Additional history exists HEPATITIS A VACCINES Aged Out 07/15/2023, 01/29/2023, 12/17/2022 No longer eligible based on patient's age to complete this topic RSV VACCINE Completed 01/09/2024, 11/21/2022 COVID-19 VACCINE Completed 09/28/2024, 07/2023, 12/12/2022, Additional history exists HIB VACCINES Aged Out No longer eligi ble based on patient's age to complete this topic MENINGOCOCCAL VACCINES (ACWY) Aged Out No longer eligible based on patient's age to complete this topic MENINGOCOCCAL VACCINES (B) Aged Out N o longer eligible based on patient's age to complete this topic Medical Devices Implanted Type Area Mgmt Specialist Device Identifier Shelf Expiration Date Model / Serial / Lot Bone Cement Antibiotic Refobacin - [id number] Implanted:Qty: 2 on 09/02/2022 by Jaison Ch MD at [facility] Left: Hip [employer] 10/13/2024 [id number] / / [id number] Hip Liner [id number] Acetabular Dm Longevity - [id number] Implanted:Qty: 1 on 09/02/2022 by Jaison Ch MD at [facility] Left: Hip [employer] 10/10/2026 [id number] / / [id number] Acetabular Shell 54mm Size F G7 Porous Plasma Siss[employer] Hole - [id number] Implanted:Qty: 1 on 09/02/2022 by Jaison Ch MD at [facility] Left: Hip [employer] 04/25/2032 [id number] / / [id number] Screw Dome 6.5x35mm G7 Aceetabular Low Profile Hip - [id number] Implanted:Qty: 1 on 09/02/2022 by Jaison Ch MD at [facility] Left: Hip [employer] 01/15/2032 [id number] / / [id number] Screw Bone 6.5x30mm Hip Dome G7 Acetabular Low Profile - [id number] Implanted:Qty: 1 on 09/02/2022 by Jaison Ch MD at [facility] Left: Hip [employer] 01/04/2032 [id number] / / [id number] Kit Preparation Cement Femoral Bone Quick Use Bx/1ea - [id number] Implanted:Qty: 1 on 09/02/2022 by Jaison Ch MD at [facility] Left: Hip [employer] 02/03/2027 [id number] / / [id number] Acetabular Liner 44mm Component Dual Mobility G7 - [id number] Implanted:Qty: 1 on 09/02/2022 by Jaison Ch MD at [facility] Left: Hip [employer] 04/30/2032 [id number] / / [id number] Hip Centralizer 15mm Implant Cemented Versys 16b Bx/1ea - [id number] Implanted:Qty: 1 on 09/02/2022 by Jaison Ch MD at [facility] Left: Hip [employer] 07/15/2027 [id number] / / [id number] Hip Stem 13mm Femoral Echo Fx [place] Std Offset - [id number] Implanted:Qty: 1 on 09/02/2022 by Jaison Ch MD at [facility] Left: Hip [employer] 03/19/2026 [id number] / / [id number] Hip 6.0x28mm Active Articulation Dual Mobility [place] Skirtless Modular Plus - [id number] Implanted:Qty: 1 on 09/02/2022 by Jaison Ch MD at [facility] Left: Hip [employer] 07/15/2031 [id number] / / [id number] Procedures Procedure Name Priority Date/Time Associated Diagnosis Comments PSA (SCREENING) Routine 11/10/2024 10:56 AM EDT Screening for prostate cancer TESTOSTERONE, TOTAL Routine 11/10/2024 1 0:56 AM EDT Screening for prostate cancer Prostate cancer metastatic to multiple sites COMPREHENSIVE METABOLIC PANEL Routine 11/10/2024 10:56 AM EDT Screening for prostate cancer Prostate cancer metastatic to multiple sites CBC AND DIFFERENTIAL Routine 11/10/2024 10:56 AM EDT Screening for prostate cancer Prostate cancer metastatic to multiple sites from Last 3 Months Results * (ABNORMAL) Comprehensive metabolic panel (11/10/2024 10:56 AM EDT) SODIUM 135 133 - 146 mmol/L [facility] POTASSIUM 5.0 3.3 - 5.1 mmol/L [facility] CHLORIDE 99 96 - 108 mmol/L [facility] CO2 25 21 - 35 mmol/L [facility] BUN 21(H) 6 - 19 mg/dL [facility] CREATININE 0.90 0.5 - 1.5 mg/dL [facility] GLUCOSE 102(H) 70 - 99 mg/dL [facility] ALBUMIN 4.1 3.9 - 4.8 g/dL [facility] TOTAL PROTEIN 7.5 6.5 - 8.0 g/dL [facility] CALCIUM 9.6 8.4 - 10.3 mg/dL [facility] ALKALINE PHOSPHATASE 161(H) 39 - 117 U/L [facility] TOTAL BILIRUBIN 0.4 0.0 - 1.2 mg/dL [facility] AST 19 0 - 37 U/L [facility] ALT 32 0 - 40 U/L [facility] GLOBULIN 3.4 1 - 4.8 g/dL [facility] EGFR 86 >59 mL/min/1.7 3m2 [facility] Comment:Estimated glomerular filtration rate calculated using the CKD-EPI refit equation. ANION GAP 16 10 - 20 mmol/L [facility] Blood 11/10/2024 10:5 6 AM EDT 11/10/2024 11:02 AM EDT us Rajendra Edward MD LAB BLOOD ORDERABLES Hali suarez Result [address] [address] * (ABNORMAL) CBC and differential (11/10/2024 10:56 AM EDT) WBC 5.87 4.00 - 11.00 K/uL [facility] RBC 4.63 4.50 - 5.90 M/uL [facility] HGB 13.4(L) 13.5 - 17.5 g/dL [facility] HCT 40.7(L) 41.0 - 53.0 % [facility] PLT 264 150 - 450 K/uL [facility] MCV 87.9 80.0 - 100.0 fL [facility] MCH 28.9 27.0 - 31.0 pg [facility] MCHC 32.9 32.0 - 36.0 g/dL [facility] RDW 14.4 11.5 - 14.5 % [facility] MPV 11.9 8.4 - 12.0 fL [facility] NRBC 0.00 0.00 /100 WBCs [facility] ABSOLUTE NRBC 0.00 0.00 K/uL [facility] DIFF METHOD Auto [facility] NEUTS 61.0 48.0 - 76.0 % [facility] LYMPHS 24.0 18.0 - 41.0 % [facility] MONOS 12.6(H) 4.0 - 11.0 % [facility] EOS 1.4 0.0 - 5.0 % [facility] BASOS 0.7 0.0 - 1.5 % [facility] Granulocytes, immature (%) 0.3 0.0 - 0.9 % [facility] ABSOLUTE NEUTS 3.58 1.92 - 7.60 K/uL [facility] ABSOLUTE LYMPHS 1.41 0.72 - 4.10 K/uL [facility] ABSOLUTE MONOS 0.74 0.16 - 1.10 K/uL [facility] ABSOLUTE EOS 0.08 0.00 - 0.50 K/uL [facility] ABSOLUTE BASOS 0.04 0.00 - 0.15 K/uL [facility] Granulocytes, immature 0.02 0.00 - 0.09 K/uL [facility] Blood 11/10/2024 10:5 6 AM EDT 11/10/2024 11:02 AM EDT Rajendra Edward MD LAB BLOOD ORDERABLES Hali l Result Performing Organization Address [facility] Co de Phone Number [address] [address] * (ABNORMAL) Testosterone, total (11/10/2024 10:56 AM EDT) TESTOSTERONE 11(L) 249 - 836 ng/dL [facility] Blood 11/10/2024 10:5 6 AM EDT 11/10/2024 11:02 AM EDT Rajendra Edward MD LAB BLOOD ORDERABLES Hali l Result Performing Organization Address [facility] Co de Phone Number [address] [address] * (ABNORMAL) PSA (screening) (11/10/2024 10:56 AM EDT) PSA 5.46(H) 0 - 4.00 ng/mL [facility] Comment: Test Methodology Una e801 Patient results determined by assays using different manufacturers or methods may not be comparable. Blood 11/10/2024 10:5 6 AM EDT 11/10/2024 11:02 AM EDT Rajendra Edward MD LAB BLOOD ORDERABLES Hali l Result Performing Organization Address City/[facility]/ZIP Co de Phone Number [address] [address] from Last 3 Months Insurance NETWORK Advance Directives For more information, please contact: [phone] (9AM - 5PM [facility], Friday-Friday) Documents on File Type Date Recorded Patient Aircraft Maintenance Supervisor Expl anation Healthcare Proxy 09/06/2022 11:48 AM Healthcare Proxy 04/07/2015 2:36 PM * Full Code (Latest Code Status on File) Date Activated Date Inactivated Comments 08/30/2022 2:09 PM Question Answer Comments Code Status Confirmed With: PatientFamily Healthcare Agents on File Name Relationship Healthcare Agent [facility] Sophie Brock Spouse .Primary Health Care Agent (Proxy form on file) Care Teams Zigzag Elastic Attacher Relationship Specialty Start Date End Date Dilan Lopez PA [address] [place] [phone] PCP - General Physician Mine Technician 07/29/23 Rajendra Edward MD [address] [place] [phone] South@ [email or web address] Primary Oncologist Hematology and Oncology 05/08/15 Park Leo RN [address] [place] [phone] [email or web address] Primary Infusion Nurse 05/08/15 Jaylen Oshea MD [address] [place] [address] [email or web address] Referring Physician 06/01/15 Dilan Lopez PA [address] [place] [address] 01/04/19 Nany Rowland, WANDER [address] [place] [address] Paty [email or web address] Nurse Navigator 04/26/24 Additional Source Comments The information contained in this document represents components of the legal health record. It is not the complete legal health record.[facility]
--- OUTSIDE RECORDS SUMMARY | 2024-11-30 11:19 | XMS_ITS | Encounter Summary ---
Author Organization [facility] Address [address] [facility] [address] [place] [address] Phone Care Team Providers Care Application Support Engineer Name Role Phone Rajendra Edward MD Unavailable Park Leo RN Unavailable [email or web address] Jaylen Oshea MD Unavailable [phone] Denis Gibson Unavailable + [phone] Denis Gibson Primary Care Provid er Denis Gibson Primary Care Provid er Nany Rowland RN Unavailable [email or web address] Encounter Details Date Type Department Care Team (Late st Contact Info) Description 07/18/2023 Procedure Pass [facility], [address] [place] [address] Social History Tobacco Use Types Packs/Day Years [...] 4:15 PM EDT Telemedicine - audio only [facility] at [address] [address] Rajendra Edward MD [address] [place] [phone] Toby [email or web address] 02/17/2025 9:30 AM EST Office Visit [facility] at [address] [address] Rajendra Edward MD [address] [place] [phone] Toby [email or web address] documented as of this encounter Visit Diagnoses Not on filedocumented in this encounter Care Teams Application Support Engineer Relationship Specialty Start Date End Date Denis Gibson PA [address] [place] [address] PCP - General 12/07/20 07/28/23 Denis Gibson [place] [facility] [address] PCP - General Physician Mold Chipper 07/29/23 Rajendra Edward MD [address] [place] [phone] South@ [email or web address] Primary Oncologist Hematology and Oncology 05/08/15 Park Leo RN [address] [place] [phone] [email or web address] Primary Infusion Nurse 05/08/15 Jaylen Oshea MD [address] [place] [address] [email or web address] Referring Physician 06/01/15 Denis Gibson PA [address] [place] [address] 01/04/19 Nany Rowland RN [address] [place] [address] Paty [email or web address] Nurse Navigator 04/26/24 documented as of this encounter Additional Source Comments The information contained in this document represents components of the legal health record. It is not the complete legal health record.[facility]
--- OUTSIDE RECORDS SUMMARY | 2024-11-30 11:19 | XMS_ITS | Encounter Summary ---
Author Organization [facility] Address [address] [facility] [address] [place] [address] Phone Care Team Providers Care End Packer Name Role Phone Rajendra Edward MD Unavailable Park Leo RN Unavailable [email or web address] Jaylen Oshea MD Unavailable [phone] Denis Gibson Unavailable [phone]- [phone] Denis Gibson Primary Care Provid er Denis Gibson Primary Care Provid er Nany Rowland RN Unavailable [email or web address] Encounter Details Date Type Department Care Team (Late st Contact Info) Description 08/30/2022 Procedure Pass [facility], Ct Scan - [address] [address] Social History Tobacco Use Types Packs/Day Years [...] 4:32 AM EDT Miriam Rivas RN * [place] Suicide Severity Rating Scale (Screener/Recent Self-Report) Question [...] 4:15 PM EDT Telemedicine - audio only [facility] at [address] [address] Rajendra Edward MD [address] [place] [phone] Toby [email or web address] 02/17/2025 9:30 AM EST Office Visit [facility] at [address] [address] Rajendra Edward MD [address] [place] [phone] Toby [email or web address] documented as of this encounter Visit Diagnoses Not on filedocumented in this encounter Care Teams End Packer Relationship Specialty Start Date End Date Denis Gibson PA [address] [place], [place] [phone] PCP - General 12/07/20 07/28/23 Denis Gibson PA [address] [place] [address] PCP - General Physician Border Police 07/29/23 Rajendra Edward MD [address] [place] [phone] South@ [email or web address] Primary Oncologist Hematology and Oncology 05/08/15 Park Leo, WANDER [address] [place] [phone] [email or web address] Primary Infusion Nurse 05/08/15 Jaylen Oshea MD [address] [place] [address] [email or web address] Referring Physician 06/01/15 Denis Gibson PA [address] [place] [address] 01/04/19 Nany Rowland RN [address] [place] [address] Paty [email or web address] Nurse Navigator 04/26/24 documented as of this encounter Additional Source Comments The information contained in this document represents components of the legal health record. It is not the complete legal health record.[facility]
--- OUTSIDE RECORDS SUMMARY | 2024-11-30 11:19 | XMS_ITS | Encounter Summary ---
Author Organization [facility] Address [address] [facility] [address] [place] [address] Phone Care Team Providers Care Community Living Coach Name Role Phone Rajendra Edward MD Unavailable [phone] Park Leo RN Unavailable [email or web address] Jaylen Oshea MD Unavailable [phone] Denis Gibson Unavailable [phone] Denis Gibson Primary Care Provid er Nany Rowland RN Unavailable [email or web address] Encounter Details Date Type Department Care Team (Late st Contact Info) Description 04/12/2024 Transcribe Orders [facility] Laboratory [address] [address] Rajendra Edward MD [address] [place] [phone] Toby [email or web address] Screening for prostate cancer (Primary Dx) [...] 4:15 PM EDT Telemedicine - audio only [facility] Cancer [address] [address] Rajendra Edward MD [address] [place] [phone] Toby [email or web address] 02/17/2025 9:30 AM EST Office Visit [facility] at [address] [address] Rajendra Edward MD [address] [place] [phone] Toby [email or web address] documented as of this encounter Results * PSA (screening) (04/12/2024 9:19 AM EST) PSA 2.27 0 - 4.00 ng/mL [facility] Comment: Test Methodology Una e801 Patient results determined by assays using different manufacturers or methods may not be comparable. Blood 04/12/2024 9:19 AM EST 04/12/2024 9:21 AM EST us Rajendra Edward MD LAB BLOOD ORDERABLES Hali suarez Result [facility] [address] [place] [address] documented in this encounter Visit Diagnoses Diagnosis Screening for prostate cancer- Primary Special screening for malignant neoplasm of prostate documented in this encounter Care Teams Community Living Coach Relationship Specialty Start Date End Date Denis Gibson PA [address] [place] [address] PCP - General Physician Fund Accountant 07/29/23 Rajendra Edward MD [address] [place] [phone] [email or web address] Primary Oncologist Hematology and Oncology 05/08/15 Park Leo, RN [address] [place] [phone] [email or web address] Primary Infusion Nurse 05/08/15 Jaylen Oshea MD [address] [place] [address] [email or web address] Referring Physician 06/01/15 Denis Gibson PA [address] [place] [address] 01/04/19 Nany Rowland RN [address] [place] [phone] Paty [email or web address] Nurse Navigator 04/26/24 documented as of this encounter Additional Source Comments The information contained in this document represents components of the legal health record. It is not the complete legal health record.[facility]
--- OUTSIDE RECORDS SUMMARY | 2024-11-30 11:20 | XMS_ITS | Encounter Summary ---
Author Organization [facility] Address [address] [facility] [address] [place] [address] Phone Care Team Providers Care Garage Hand Name Role Phone Rajendra Edward MD Unavailable [phone] Park Leo RN Unavailable [email or web address] Jaylen Oshea MD Unavailable [phone] Denis Gibson Unavailable [phone] Denis Gibson Primary Care Provid er Denis Gibson Primary Care Provid er Nany Rowland RN Unavailable [email or web address] Reason for Referral * MRI/CAT Scan - Closed Specialty Diagnoses / Procedures Referred By Contac t Referred To Contact Radiology Diagnoses Cervicalgia Procedures MRI Cervical Spine Denis Gibson PA [address] [place] [address] Phone: tel: fax: Referral ID Status Reason Start Date Expiration Date Visits Re quested Visits Authorized [id number] Closed 01/23/2022 04/17/2022 1 1 Encounter Details Date Type Department Care Team (Latest Contact Info) Description 01/23/2022 Transcribe Orders [facility] Department [address] [place] [address] [phone] Denis Gibson PA [address] [place] [address] Cervicalgia (Primary Dx) Social History Tobacco Use [...] 4:15 PM EDT Telemedicine - audio only [facility] [place] at [address] [address] Rajendra Edward MD [address] [place] [phone] Toby [email or web address] [place] 02/17/2025 9:30 AM EST Office Visit [facility] at [address] [address] Rajendra Edward MD [address] [place] [phone] Toby [email or web address] DU documented as of this encounter Results [...] documented as of this encounter Care Teams Garage Hand Relationship Specialty Start Date End Date Denis Gibson PA [address] [place] [address] PCP - General 12/07/20 07/28/23 Denis Gibson PA [address] [place] [address] PCP - General Physician Rotary Driller 07/29/23 Rajendra Edward MD [address] [place] [phone] South@ [email or web address] Primary Oncologist Hematology and Oncology 05/08/15 Park Leo, WANDER [address] [place] [phone] [email or web address] Primary Infusion Nurse 05/08/15 Jaylen Oshea MD [address] [place] [address] [email or web address] Referring Physician 06/01/15 Denis Gibson PA [address] [place] [address] 01/04/19 Nany Rowland RN [address] [place] [address] Paty [email or web address] Nurse Navigator 04/26/24 documented as of this encounter Additional Source Comments The information contained in this document represents components of the legal health record. It is not the complete legal health record.[facility]
--- OUTSIDE RECORDS SUMMARY | 2024-11-30 11:20 | XMS_ITS | Encounter Summary ---
Author Organization [facility] Address [address] [facility] [address] [place] [address] Phone Care Team Providers Care Machinist Outside Name Role Phone Rajendra Edward MD Unavailable [phone] Park Leo RN Unavailable [email or web address] Jaylen Oshea MD Unavailable Denis Gibson Unavailable [phone] Denis Gibson Primary Care Provid er Denis Gibson Primary Care Provid er Nany Rowland RN Unavailable [email or web address] Encounter Details Date Type Department Care Team (Late st Contact Info) Description 05/13/2022 Transcribe Orders [facility] Laboratory [address] [address] Rajendra Edward MD [address] [place] [phone] Toby [email or web address] [place] Screening for prostate cancer Social History [...] 4:15 PM EDT Telemedicine - audio only [facility] at [address] [address] Rajendra Edward MD [address] [place] [phone] Toby [email or web address]. DU 02/17/2025 9:30 AM EST Office Visit [facility] at [address] [address] Rajendra Edward MD [address] [place] [phone] Toby [email or web address] [place] documented as of this encounter Results * PSA (screening) (05/13/2022 9:24 AM EST) PSA 0.05 0 - 4.00 ng/mL [facility] Blood 05/13/2022 9:24 AM EST 05/13/2022 9:26 AM EST Rajendra Edward MD LAB BLOOD ORDERABLES Hali l Result [address] [address] documented in this encounter Visit Diagnoses Diagnosis Screening for prostate cancer Special screening for malignant neoplasm of prostate documented in this encounter Additional Health Concerns Infection Onset Date Last Indicated Resolved Time CoV-Risk 07/06/2022 07/06/2022 07/06/2022 3:45 PM EDT COVID-19 07/06/2022 07/06/2022 07/27/2022 1:21 AM EDT documented as of this encounter Care Teams Machinist Outside Relationship Specialty Start Date End Date Denis Gibson PA [address] [place] [address] PCP - General 12/07/20 07/28/23 Denis Gibson PA [address] [place] [address] PCP - General Physician Architectural Administrative Assistant 07/29/23 Rajendra Edward MD [address] [place] [phone] South@ [email or web address] Primary Oncologist Hematology and Oncology 05/08/15 Park Leo, WANDER [address] [place] [phone] [email or web address] Primary Infusion Nurse 05/08/15 Jaylen Oshea MD [address] [place] [address] [email or web address] Referring Physician 06/01/15 Denis Gibson PA [address] [place] [address] 01/04/19 Nany Rowland RN [address] [place] [address] Paty [email or web address] Nurse Navigator 04/26/24 documented as of this encounter Additional Source Comments The information contained in this document represents components of the legal health record. It is not the complete legal health record.[facility]
--- OUTSIDE RECORDS SUMMARY | 2024-11-30 11:20 | XMS_ITS | Encounter Summary ---
Author Organization [facility] Address [address] [facility] [address] [place] [address] Phone Care Team Providers Care Clerical Clerk Name Role Phone Rajendra Edward MD Unavailable [phone] Park Leo RN Unavailable [email or web address] Jaylen Oshea MD Unavailable Denis Gibson Unavailable [phone] Denis Gibson Primary Care Provid er Denis Gibson Primary Care Provid er Nany Rowland RN Unavailable [email or web address] Encounter Details Date Type Department Care Team (Late st Contact Info) Description 01/09/2022 Transcribe Orders [facility] Laboratory [address] [address] Rajendra Edward MD [address] [place] [phone] Toby [email or web address] DU Screening for prostate cancer Social History [...] PM EDT Telemedicine - audio only [facility] at [address] [address] Rajendra Edward MD [address] [place] [phone] Toby [email or web address]. DU 02/17/2025 9:30 AM EST Office Visit [facility] at [address] [address] Rajendra Edward MD [address] [place] [phone] Toby [email or web address] DU documented as of this encounter Results * PSA (screening) (01/09/2022 10:15 AM EDT) PSA 0.03 0 - 4.00 ng/mL [facility] Blood 01/09/2022 10:1 5 AM EDT 01/09/2022 10:27 AM EDT Rajendra Edward MD LAB BLOOD ORDERABLES Hali l Result [address] [address] documented in this encounter Visit Diagnoses Diagnosis Screening for prostate cancer Special screening for malignant neoplasm of prostate documented in this encounter Additional Health Concerns Infection Onset Date Last Indicated Resolved Time CoV-Risk 07/06/2022 07/06/2022 07/06/2022 3:45 PM EDT COVID-19 07/06/2022 07/06/2022 07/27/2022 1:21 AM EDT documented as of this encounter Care Teams Clerical Clerk Relationship Specialty Start Date End Date Denis Gibson PA [address] [place] [address] PCP - General 12/07/20 07/28/23 Denis Gibson PA [address] [place] [address] PCP - General Physician Blade Grinder 07/29/23 Rajendra Edward MD [address] [place] [phone] South@ [email or web address] Primary Oncologist Hematology and Oncology 05/08/15 Park Leo, WANDER [address] [place] [phone] [email or web address] Primary Infusion Nurse 05/08/15 Jaylen Oshea MD [address] [place] [address] [email or web address] Referring Physician 06/01/15 Denis Gibson PA [address] [place] [address] 01/04/19 Nany Rowland RN [address] [place] [address] Paty [email or web address] Nurse Navigator 04/26/24 documented as of this encounter Additional Source Comments The information contained in this document represents components of the legal health record. It is not the complete legal health record.[facility]
--- OUTSIDE RECORDS SUMMARY | 2024-11-30 11:20 | XMS_ITS | Encounter Summary ---
Author Organization [facility] Address [address] [facility] [address] [place] [address] Phone Care Team Providers Care Table Cut Off Saw Operator Name Role Phone Rajendra Edward MD Unavailable Park Leo RN Unavailable [email or web address] Jaylen Oshea MD Unavailable [phone] Denis Gibson Unavailable + [phone] Denis Gibson Primary Care Provid er Denis Gibson Primary Care Provid er Nany Rowland RN Unavailable [email or web address] Encounter Details Date Type Department Care Team (Late st Contact Info) Description 01/23/2022 Procedure Pass [facility], [address] [address] Social History Tobacco Use Types Packs/Day Years [...] 4:15 PM EDT Telemedicine - audio only [facility] at [address] [address] Rajendra Edward MD [address] [place] [phone] Toby [email or web address]. DU 02/17/2025 9:30 AM EST Office Visit [facility] at [address] [address] Rajendra Edward MD [address] [place] [phone] Toby [email or web address] DU documented as of this encounter Visit Diagnoses Not on filedocumented in this encounter Additional Health Concerns Infection Onset Date Last Indicated Resolved Time CoV-Risk 07/06/2022 07/06/2022 07/06/2022 3:45 PM EDT COVID-19 07/06/2022 07/06/2022 07/27/2022 1:21 AM EDT documented as of this encounter Care Teams Table Cut Off Saw Operator Relationship Specialty Start Date End Date Denis Gibson PA [address] [place] [address] PCP - General 12/07/20 07/28/23 Denis Gibson PA [address] [place] [phone] PCP - General Physician Meter/Relay Craftsman 07/29/23 Rajendra Edward MD [address] [place] [phone] South@ [email or web address] Primary Oncologist Hematology and Oncology 05/08/15 Park Leo, WANDER [address] [place] [phone] [email or web address] Primary Infusion Nurse 05/08/15 Jaylen Oshea MD [address] [place] [address] [email or web address] Referring Physician 06/01/15 Denis Gibson PA [address] [place] [address] 01/04/19 Nany Rowland RN [address] [place] [address] Paty [email or web address] Nurse Navigator 04/26/24 documented as of this encounter Additional Source Comments The information contained in this document represents components of the legal health record. It is not the complete legal health record.[facility]
--- OUTSIDE RECORDS SUMMARY | 2024-11-30 11:21 | XMS_ITS | Encounter Summary ---
Author Organization [facility] Address [address] [place] [address] [place] [address] Phone Care Team Providers Care Gericare Aide Name Role Phone Jaylen Oshea MD Primary Care Provider Rajendra Edward MD Unavailable [phone] Park Leo RN Unavailable [email or web address] Jaylen Oshea MD Unavailable [phone] Denis Gibson Unavailable + [phone] Denis Gibson Primary Care Provid er Denis Gibson Primary Care Provid er Nany Rowland RN Unavailable [email or web address] Encounter Details Date Type Department Care Team (Late st Contact Info) Description 10/02/2017 Procedure Pass [facility], Radiology Department Social History Tobacco Use Types [...] 4:15 PM EDT Telemedicine - audio only [facility] at [address] [address] Rajendra Edward MD [address] [place] [phone] Toby [email or web address] DU 02/17/2025 9:30 AM EST Office Visit [facility] at [address] [address] Rajendra Edward MD [address] [place] [phone] Toby [email or web address] DU documented as of this encounter Visit Diagnoses Not on filedocumented in this encounter Additional Health Concerns Infection Onset Date Last Indicated Resolved Time CoV-Risk 07/06/2022 07/06/2022 07/06/2022 3:45 PM EDT COVID-19 07/06/2022 07/06/2022 07/27/2022 1:21 AM EDT documented as of this encounter Care Teams Gericare Aide Relationship Specialty Start Date End Date Jaylen Oshea MD [address] [place] [address] PCP - General 04/03/15 12/06/20 Denis Gibson PA [address] [place] [phone] PCP - General 12/07/20 07/28/23 Denis Gibson PA [address] [place] [phone] PCP - General Physician Manager Of Hospital 07/29/23 Rajendra Edward MD [address] [place] [phone] South@ [email or web address] Primary Oncologist Hematology and Oncology 05/08/15 Park Leo, WANDER [address] [place] [phone] [email or web address] Primary Infusion Nurse 05/08/15 Jaylen Oshea MD [address] [place] [address] [email or web address] Referring Physician 06/01/15 Denis Gibson PA [address] [place] [phone] 01/04/19 Nany Rowland RN [address] [place] [phone] Paty [email or web address] Nurse Navigator 04/26/24 documented as of this encounter Additional Source Comments The information contained in this document represents components of the legal health record. It is not the complete legal health record.[facility]
--- OUTSIDE RECORDS SUMMARY | 2024-11-30 11:21 | XMS_ITS | Encounter Summary ---
Author Organization [facility] Address [address] [facility] [address] [place] [address] Phone Care Team Providers Care Junior Accountant Bookkeeper Name Role Phone Rajendra Edward MD Unavailable Park Leo RN Unavailable [email or web address] Jaylen Oshea MD Unavailable [phone] Denis Gibson Unavailable [phone] Denis Gibson Primary Care Provid er Nany Rowland RN Unavailable [email or web address] Encounter Details Date Type Department Care Team (Late st Contact Info) Description 06/09/2024 Transcribe Orders [facility] Laboratory [address] [address] Rajendra Edward MD [address] [place] [phone] Toby [email or web address] [place] Screening for prostate cancer (Primary Dx); [...] 4:15 PM EDT Telemedicine - audio only [facility] [place] at [address] [address] Rajendra Edward MD [address] [place] [phone] Toby [email or web address] 02/17/2025 9:30 AM EST Office Visit [facility] at [address] [address] Rajendra Edward MD [address] [place] [phone] Toby [email or web address] [place] documented as of this encounter Results * (ABNORMAL) Testosterone, total (06/09/2024 10:17 AM EDT) TESTOSTERONE 9(L) 249 - 836 ng/dL [facility] Blood 06/09/2024 10:1 7 AM EDT 06/09/2024 10:27 AM EDT us Rajendra Edward MD LAB BLOOD ORDERABLES Hali l Result [address] [address] * (ABNORMAL) Comprehensive metabolic panel (06/09/2024 10:17 AM EDT) SODIUM 139 133 - 146 mmol/L [facility] POTASSIUM 4.5 3.3 - 5.1 mmol/L [facility] CHLORIDE 102 96 - 108 mmol/L [facility] CO2 27 21 - 35 mmol/L [facility] BUN 21(H) 6 - 19 mg/dL [facility] CREATININE 1.00 0.5 - 1.5 mg/dL [facility] GLUCOSE 85 70 - 99 mg/dL [facility] ALBUMIN 4.1 3.9 - 4.8 g/dL [facility] TOTAL PROTEIN 7.4 6.5 - 8.0 g/dL [facility] CALCIUM 9.6 8.4 - 10.3 mg/dL [facility] ALKALINE PHOSPHATASE 69 39 - 117 U/L [facility] TOTAL BILIRUBIN 0.3 0.0 - 1.2 mg/dL [facility] AST 23 0 - 37 U/L [facility] ALT 14 0 - 40 U/L [facility] GLOBULIN 3.3 1 - 4.8 g/dL [facility] EGFR 76 >59 mL/min/1.7 3m2 [facility] Comment:Estimated glomerular filtration rate calculated using the CKD-EPI refit equation. ANION GAP 15 10 - 20 mmol/L [facility] Blood 06/09/2024 10:1 7 AM EDT 06/09/2024 10:27 AM EDT us Rajendra Edward MD LAB BLOOD ORDERABLES Hali daniela Result [facility] [address] [place] [address] * (ABNORMAL) CBC and differential (06/09/2024 10:17 AM EDT) WBC 7.23 4.00 - 11.00 K/uL [facility] RBC 4.53 4.50 - 5.90 M/uL [facility] HGB 12.6(L) 13.5 - 17.5 g/dL [facility] HCT 39.2(L) 41.0 - 53.0 % [facility] PLT 178 150 - 450 K/uL [facility] MCV 86.5 80.0 - 100.0 fL [facility] MCH 27.8 27.0 - 31.0 pg [facility] MCHC 32.1 32.0 - 36.0 g/dL [facility] RDW 14.2 11.5 - 14.5 % [facility] MPV 11.9 8.4 - 12.0 fL [facility] NRBC 0.00 0.00 /100 WBCs [facility] ABSOLUTE NRBC 0.00 0.00 K/uL [facility] DIFF METHOD Auto [facility] NEUTS 61.3 48.0 - 76.0 % [facility] LYMPHS 26.0 18.0 - 41.0 % [facility] MONOS 10.5 4.0 - 11.0 % [facility] EOS 1.5 0.0 - 5.0 % [facility] BASOS 0.6 0.0 - 1.5 % [facility] Granulocytes, immature (%) 0.1 0.0 - 0.9 % [facility] ABSOLUTE NEUTS 4.43 1.92 - 7.60 K/uL [facility] ABSOLUTE LYMPHS 1.88 0.72 - 4.10 K/uL [facility] ABSOLUTE MONOS 0.76 0.16 - 1.10 K/uL [facility] ABSOLUTE EOS 0.11 0.00 - 0.50 K/uL [facility] ABSOLUTE BASOS 0.04 0.00 - 0.15 K/uL [facility] Granulocytes, immature 0.01 0.00 - 0.09 K/uL [facility] Blood 06/09/2024 10:1 7 AM EDT 06/09/2024 10:27 AM EDT Rajendra Edward MD LAB BLOOD ORDERABLES Hali l Result Performing Organization Address City/[facility]/ZIP Co de Phone Number [address] [address] * PSA (screening) (06/09/2024 10:17 AM EDT) PSA 1.68 0 - 4.00 ng/mL [facility] Comment: Test Methodology Una e801 Patient results determined by assays using different manufacturers or methods may not be comparable. Blood 06/09/2024 10:1 7 AM EDT 06/09/2024 10:26 AM EDT Rajendra Edward MD LAB BLOOD ORDERABLES Hali l Result Performing Organization Address City/[facility]/ZIP Co de Phone Number [address] [address] documented in this encounter Visit Diagnoses Diagnosis Screening for prostate cancer- Primary Special screening for malignant neoplasm of prostate Prostate cancer Malignant neoplasm of prostate documented in this encounter Care Teams Junior Accountant Bookkeeper Relationship Specialty Start Date End Date Denis Gibson PA [address] [place] [phone] PCP - General Physician Park Services Specialist 07/29/23 Rajendra Edward MD [address] [place] [phone] South@ [email or web address] Primary Oncologist Hematology and Oncology 05/08/15 Park Leo, WANDER [address] [place] [phone] [email or web address] Primary Infusion Nurse 05/08/15 Jaylen Oshea MD [address] [place] [address] [email or web address] Referring Physician 06/01/15 Denis Gibson PA [address] [place] [address] 01/04/19 Nany Rowland RN [address] [place] [address] Paty [email or web address] Nurse Navigator 04/26/24 documented as of this encounter Additional Source Comments The information contained in this document represents components of the legal health record. It is not the complete legal health record.[facility]
--- OUTSIDE RECORDS SUMMARY | 2024-11-30 11:21 | XMS_ITS | Encounter Summary ---
Author Organization [facility] Address [address] [place] [address] [place] [address] Phone Care Team Providers Care Plc Engineer Name Role Phone Jaylen Oshea MD Primary Care Provider [phone] Rajendra Edward MD Unavailable [phone] Park Leo RN Unavailable [email or web address] Jaylen Oshea MD Unavailable [phone] Denis Gibson Unavailable + [phone] Denis Gibson Primary Care Provid er Denis Gibson Primary Care Provid er Nany Rowland RN Unavailable [email or web address] Encounter Details Date Type Department Care Team (Late st Contact Info) Description 10/02/2017 Procedure Pass [facility], Radiology Department Social History Tobacco Use [...] 4:15 PM EDT Telemedicine - audio only [facility] at [address] [address] Rajendra Edward MD [address] [place] [phone] Toby [email or web address] 02/17/2025 9:30 AM EST Office Visit [facility] at [address] [address] Rajendra Edward MD [address] [place] [phone] Toby [email or web address] [place] documented as of this encounter Visit Diagnoses Not on filedocumented in this encounter Additional Health Concerns Infection Onset Date Last Indicated Resolved Time CoV-Risk 07/06/2022 07/06/2022 07/06/2022 3:45 PM EDT COVID-19 07/06/2022 07/06/2022 07/27/2022 1:21 AM EDT documented as of this encounter Care Teams Plc Engineer Relationship Specialty Start Date End Date Jaylen Oshea MD [address] [place] [address] PCP - General 04/03/15 12/06/20 Denis Gibson PA [address] [place] [phone] PCP - General 12/07/20 07/28/23 Denis Gibson PA [address] [place] [phone] PCP - General Physician Patient Accounts Manager 07/29/23 Rajendra Edward MD [address] [place] [phone] South@ [email or web address] Primary Oncologist Hematology and Oncology 05/08/15 Park Leo, WANDER [address] [place] [phone] [email or web address] Primary Infusion Nurse 05/08/15 Jaylen Oshea MD [address] [place] [address] [email or web address] Referring Physician 06/01/15 Denis Gibson PA [address] [place] [phone] 01/04/19 Nany Rowland RN [address] [place] [address] Paty [email or web address] Nurse Navigator 04/26/24 documented as of this encounter Additional Source Comments The information contained in this document represents components of the legal health record. It is not the complete legal health record.[facility]
--- OUTSIDE RECORDS SUMMARY | 2024-11-30 11:21 | XMS_ITS | Encounter Summary ---
Author Organization [facility] Address [address] [place] [address] Phone Care Team Providers Care Exterminator Name Role Phone Rajendra Edward MD Unavailable [phone] Park Leo RN Unavailable [email or web address] Jaylen Oshea MD Unavailable [phone] Denis Gibson Unavailable + [phone] Denis Gibson Primary Care Provid er Nany Rowland RN Unavailable [email or web address] Encounter Details Date Type Department Care Team (Late st Contact Info) Description 08/10/2024 Transcribe Orders [facility] Laboratory 10 [facility] 2nd [place] [address] Celina Carlton PA-C [address] [place] [address] [email or web address] Social History Tobacco Use Types Packs/Day Years [...] 4:15 PM EDT Telemedicine - audio only [facility] at [address] [address] Rajendra Edward MD [address] [place] [phone] Toby [email or web address]. [place] 02/17/2025 9:30 AM EST Office Visit [facility] and [facility] at [address] [address] Rajendra Edward MD [address] [place] [phone] Toby [email or web address] [place] documented as of this encounter Visit Diagnoses Not on filedocumented in this encounter Care Teams Exterminator Relationship Specialty Start Date End Date Denis Gibson PA [address] [place] [phone] PCP - General Physician Physics Teacher 07/29/23 Rajendra Edward MD [address] [place] [phone] South@ [email or web address] Primary Oncologist Hematology and Oncology 05/08/15 Park Leo, WANDER [address] [place] [phone] [email or web address] Primary Infusion Nurse 05/08/15 Jaylen Oshea MD [address] [place] [address] [email or web address] Referring Physician 06/01/15 Denis Gibson PA [address] [place] [address] 01/04/19 Nany Rowland RN [address] [place] [address] Paty [email or web address] Nurse Navigator 04/26/24 documented as of this encounter Additional Source Comments The information contained in this document represents components of the legal health record. It is not the complete legal health record.[facility]
== END 2024-11-30 09:54 | disposition home or self-care (01) ==
LOC: HO.HOS 09:04
PROVIDERS: Visit Provider Physician Assistant
DX: S42.302A Unspecified fracture of shaft of humerus, left arm, initial encounter for closed fracture (principal)
CPT/HCPCS: 99213

== ENCOUNTER → 2024-11-30 09:05 | Outpatient (BNV) | payer MEDICARE, SELFPAY | PROVIDERS: Visit Provider Radiology Diagnostic Radiology | DX: S42.302D Unspecified fracture of shaft of humerus, left arm, subsequent encounter for fracture with routine healing (principal) | CPT/HCPCS: 73060 ==

== ENCOUNTER 2024-11-30 09:54 | Outpatient (REF) | payer MEDICARE, SELFPAY ==
--- OUTSIDE RECORDS SUMMARY | 2015-04-12 09:26 | XMS_ITS | Encounter Summary ---
Author Organization [facility] Address [address] [facility] [address] [place] [address] Phone Care Team Providers Care Pharmacology Teacher Name Role Phone Jaylen Oshea MD Primary Care Provider + [phone] Encounter Details Date Type Department Care Team (Late st Contact Info) Description 04/12/2015 8:26 AM EST Hospital Encounter [facility], Radiology Department Unknown, Unknown, Social History [...] 4:32 AM EDT Miriam Rivas RN * [place] Suicide Severity Rating Scale (Screener/Recent Self-Report) Question Answer Date of Assessment Author 1. Wish to be (Past 1 Month) No 023 4:32 AM EDT Miriam Rivas RN 2. Non-Specific Active Suici saul Thoughts (Past 1 Month) No 08/30/2022 4:32 AM EDT India Rivas ra, RN 6. Suicidal Behavior (Lifetime) No 4:32 AM EDT Miriam Rivas RN documented as of this encounter Plan of Treatment Upcoming Encounters Date Type Department Care Team (Late st Contact Info) Description 12/21/2024 4:15 PM EDT Telemedicine - audio only [facility] at [address] [address] Rajendra Edward MD [address] [place] [phone] Toby [email or web address] 02/17/2025 9:30 AM EST Office Visit [facility] at [address] [address] Rajendra Edward MD [address] [place] [phone] Toby [email or web address] Scheduled Orders Name Type Priority Associated Diagnoses [...] documented as of this encounter Care Teams Pharmacology Teacher Relationship Specialty Start Date End Date Jaylen Oshea MD [address] [place] [phone] [email or web address] PCP - General 04/03/15 12/06/20 documented as of this encounter Additional Source Comments The information contained in this document represents components of the legal health record. It is not the complete legal health record.[facility]
--- OUTSIDE RECORDS SUMMARY | 2015-09-13 12:00 | XMS_ITS | Encounter Summary ---
Author Organization [facility] Address [address] [facility] [address] [place] [address] Phone Care Team Providers Care Fleet Maintenance Manager Name Role Phone Jaylen Oshea MD Primary Care Provider [phone] Rajendra Edward MD Unavailable [phone] Park Leo RN Unavailable [email or web address] Jaylen Oshea MD Unavailable [phone] Encounter Details Date Type Department Care Team (Late st Contact Info) Description 09/13/2015 12:00 PM EDT Hospital Encounter [facility], Radiology Department [...] 4:32 AM EDT Miriam Rivas RN * [place] Suicide Severity Rating Scale (Screener/Recent Self-Report) Question [...] 4:15 PM EDT Telemedicine - audio only [facility] at [address] [address] Rajendra Edward MD [address] [place] [phone] Toby [email or web address] 02/17/2025 9:30 AM EST Office Visit [facility] at [address] [address] Rajendra Edward MD [address] [place] [phone] Toby [email or web address] Scheduled Orders Name Type Priority Associated [...] documented as of this encounter Care Teams Fleet Maintenance Manager Relationship Specialty Start Date End Date Jaylen Oshea MD [address] [place] [address] PCP - General 04/03/15 12/06/20 Rajendra Edward MD [address] [place] [phone] South@ [facility] Primary Oncologist Hematology and Oncology 05/08/15 Park Leo RN [address] [place] [phone] [email or web address] Primary Infusion Nurse 05/08/15 Jaylen Oshea MD [address] [place] [address] Referring Physician 06/01/15 documented as of this encounter Additional Source Comments The information contained in this document represents components of the legal health record. It is not the complete legal health record.[facility]
--- OUTSIDE RECORDS SUMMARY | 2015-09-13 13:20 | XMS_ITS | Encounter Summary ---
Author Organization [facility] Address [address] [facility] [address] [place] [address] Phone Care Team Providers Care Electronic Scale Tester Name Role Phone Jaylen Oshea MD Primary Care Provider Rajendra Edward MD Unavailable [phone] Park Leo RN Unavailable [email or web address] Jaylen Oshea MD Unavailable [phone] Encounter Details Date Type Department Care Team (Late st Contact Info) Description 09/13/2015 1:20 PM EDT Hospital Encounter [facility], Radiology Department Unknown, Unknown, Social History [...] 4:32 AM EDT Miriam Rivas RN * [place] Suicide Severity Rating Scale (Screener/Recent Self-Report) Question [...] 4:15 PM EDT Telemedicine - audio only [facility] at [address] [address] Rajendra Edward MD [address] [place] [phone] Toby [email or web address] 02/17/2025 9:30 AM EST Office Visit [facility] at [address] [address] Rajendra Edward MD 20 [place] [address] Toby [email or web address] [place] Scheduled Orders Name Type Priority Associated [...] documented as of this encounter Care Teams Electronic Scale Tester Relationship Specialty Start Date End Date Jaylen Oshea MD [address] [place] [address] [email or web address] PCP - General 04/03/15 12/06/20 Rajendra Edward MD [address] [place] [phone] South@ [email or web address] Primary Oncologist Hematology and Oncology 05/08/15 Park Leo, RN 20 [place] [phone] [email or web address] Primary Infusion Nurse 05/08/15 Jaylen Oshea MD [address] [place] [address] [email or web address] Referring Physician 06/01/15 documented as of this encounter Additional Source Comments The information contained in this document represents components of the legal health record. It is not the complete legal health record.[facility]
--- OUTSIDE RECORDS SUMMARY | 2018-01-13 13:00 | XMS_ITS | Encounter Summary ---
Author Organization [facility] Address [address] [facility] [address] [facility] [place] [address] Phone Care Team Providers Care Ward Service Supervisor Name Role Phone Jaylen Oshea MD Primary Care Provider + [phone] Rajendra Edward MD Unavailable [phone] Park Leo RN Unavailable [email or web address] Jaylen Oshea MD Unavailable [phone] Reason for Referral * MRI/CAT Scan - Closed Specialty Diagnoses / Procedures Referred By Contac t Referred To Contact Radiology Diagnoses Prostate cancer metastatic to multiple sites Procedures CT Abdomen/Pelvis CT CHEST Rajendra Edward MD Phone: tel: fax: mailto:South @[facility] Referral ID Status Reason Start Date Expiration Date Visits Re quested Visits Authorized [id number] Closed 10/02/2017 10/02/2018 1 1 * MRI/CAT Scan - Closed Specialty Diagnoses / Procedures Referred By Contmurray t Referred To Contact Radiology Diagnoses Prostate cancer metastatic to multiple sites Procedures CT Chest CT ABDOMEN/PELVIS Rajendra Edward MD Phone: tel: fax: mailto:South @[facility] Referral ID Status Reason Start Date Expiration Date Visits Re quested Visits Authorized [id number] Closed 10/02/2017 02/13/2018 1 1 Reason for Visit * MRI/CAT Scan - Closed Specialty Diagnoses / Procedures Referred By Jase dow Referred To Contact Radiology Diagnoses Prostate cancer metastatic to multiple sites Procedures CT Chest CT ABDOMEN/PELVIS Rajendra Edward MD Phone: tel: fax: mailto:South @[facility] Referral ID Status Reason Start Date Expiration Date Visits Re quested Visits Authorized [id number] Closed 10/02/2017 02/13/2018 1 1 Encounter Details Date Type Department Care Team (Late st Contact Info) Description 01/13/2018 1:00 PM EDT Hospital Encounter [facility], Radiology Department Rajendra Edward MD [address] [place] [phone] Jessenia [email or web address] Social History Tobacco Use Types Packs/Day Years [...] 4:32 AM EDT Miriam Rivas RN * [place] Suicide Severity Rating Scale (Screener/Recent Self-Report) Question [...] 4:15 PM EDT Telemedicine - audio only [facility] at [address] [address] Rajendra Edward MD [address] [place] [phone] Toby [email or web address] 02/17/2025 9:30 AM EST Office Visit [facility] at [address] [address] Rajendra Edward MD [address] [place] [phone] Toby [email or web address] Scheduled Orders Name Type Priority Associated [...] documented as of this encounter Care Teams Ward Service Supervisor Relationship Specialty Start Date End Date Jaylen Oshea MD [address] [place] [address] [email or web address] PCP - General 04/03/15 12/06/20 Rajendra Edward MD [address] [place] [phone] [email or web address] Primary Oncologist Hematology and Oncology 05/08/15 Park Leo, RN [address] [place] [phone] [email or web address] Primary Infusion Nurse 05/08/15 Jaylen Oshea MD [address] [place] [address] [email or web address] Referring Physician 06/01/15 documented as of this encounter Additional Source Comments The information contained in this document represents components of the legal health record. It is not the complete legal health record.[facility]
--- NOTE | ~2024-11-30 | XR_ITS ---
EXAMINATION: XR HUMERUS LEFT HISTORY: S42.302A - Unspecified fracture of shaft of humerus, left arm, initial... COMPARISON: Comparison is made with the prior examination dated 11/02/2024. FINDINGS: AP and lateral views of the left humerus are submitted. Osseous mineralization is normal. Again seen is a fracture of the midshaft of the humerus without significant change in alignment. There is a moderate amount of callus formation noted, considered healing. The fracture line remains visible. The soft tissues are unremarkable. XR/XR humerus LT IMPRESSION: Healing fracture of the midshaft of the left humerus. Electronically signed by: Clyde Olivares MD 11/30/2024 09:19 AM EDT
--- OUTSIDE RECORDS SUMMARY | 2024-12-01 11:49 | XMS_ITS | Encounter Summary ---
Author Organization [facility] Address [address] [facility] [address] [place] [address] Phone Care Team Providers Care Clerical Office Worker Name Role Phone Rajendra Edward MD Unavailable Park Leo RN Unavailable [email or web address] Jaylen Oshea MD Unavailable [phone] Denis Gibson Unavailable [phone] Denis Gibson Primary Care Provid er Nany Rowland RN Unavailable [email or web address] Encounter Details Date Type Department Care Team (Late st Contact Info) Description 04/12/2024 Transcribe Orders [facility] Laboratory [address] [address] Rajendra Edward MD [address] [place] [phone] Toby [email or web address] Screening for prostate cancer (Primary Dx) [...] 4:15 PM EDT Telemedicine - audio only [facility] Cancer [address] [address] Rajendra Edward MD [address] [place] [phone] Toby [email or web address]. [email or web address] 02/17/2025 9:30 AM EST Office Visit [facility] at [address] [address] Rajendra Edward MD [address] [place] [phone] Toby [email or web address] documented as of this encounter Results * PSA (screening) (04/12/2024 9:19 AM EST) PSA 2.27 0 - 4.00 ng/mL [facility] Comment: Test Methodology Una e801 Patient results determined by assays using different manufacturers or methods may not be comparable. Blood 04/12/2024 9:19 AM EST 04/12/2024 9:21 AM EST us Rajendra Edward MD LAB BLOOD ORDERABLES Hali suarez Result [facility] [address] [place] [address] documented in this encounter Visit Diagnoses Diagnosis Screening for prostate cancer- Primary Special screening for malignant neoplasm of prostate documented in this encounter Care Teams Clerical Office Worker Relationship Specialty Start Date End Date Denis Gibson PA [address] [place] [phone] PCP - General Physician Sheriffs Detective 07/29/23 Rajendra Edward MD [address] [place] [phone] South@ [email or web address].[email or web address] Primary Oncologist Hematology and Oncology 05/08/15 Park Leo, RN [address] [place] [phone] [email or web address] Primary Infusion Nurse 05/08/15 Jaylen Oshea MD [address] [place] [address] [email or web address] Referring Physician 06/01/15 Denis Gibson PA [address] [place] [address] 01/04/19 Nany Rowland RN [address] [place] [address] Paty [email or web address] Nurse Navigator 04/26/24 documented as of this encounter Additional Source Comments The information contained in this document represents components of the legal health record. It is not the complete legal health record.[facility]
--- OUTSIDE RECORDS SUMMARY | 2024-12-01 11:49 | XMS_ITS | Encounter Summary ---
Author Organization [facility] Address [address] [facility] [address] [place] [address] Phone Care Team Providers Care Parts Puller Name Role Phone Rajendra Edward MD Unavailable Park Leo RN Unavailable [email or web address] Jaylen Oshea MD Unavailable [phone] Denis Gibson Unavailable + [phone] Denis Gibson Primary Care Provid er Denis Gibson Primary Care Provid er Nany Rowland RN Unavailable [email or web address] Encounter Details Date Type Department Care Team (Late st Contact Info) Description 09/02/2022 Procedure Pass [place] Admitting Dept - Virtual Department [address] [place] [address] Social History Tobacco Use Types Packs/Day Years [...] 4:15 PM EDT Telemedicine - audio only [facility] at [address] [address] Rajendra Edward MD [address] [place] [phone] Toby [email or web address]. [email or web address] 02/17/2025 9:30 AM EST Office Visit [facility] [place] at [address] [address] Rajendra Edward MD [address] [place] [phone] Toby [email or web address] documented as of this encounter Visit Diagnoses Not on filedocumented in this encounter Care Teams Parts Puller Relationship Specialty Start Date End Date Denis Gibson [facility] [place] [address] PCP - General 12/07/20 07/28/23 Denis Gibson PA [address] [place] [phone] PCP - General Physician Home Organizer 07/29/23 Rajendra Edward MD [address] [place] [phone] South@ [facility] Primary Oncologist Hematology and Oncology 05/08/15 Park Leo, RN [address] [place] [phone] [email or web address] Primary Infusion Nurse 05/08/15 Jaylen Oshea MD [address] [place] [address] [email or web address] Referring Physician 06/01/15 Denis Gibson PA [address] [place] [address] 01/04/19 Nany Rowland, WANDER [address] [place] [address] Paty [email or web address] Nurse Navigator 04/26/24 documented as of this encounter Additional Source Comments The information contained in this document represents components of the legal health record. It is not the complete legal health record.[facility]
--- OUTSIDE RECORDS SUMMARY | 2024-12-01 11:49 | XMS_ITS | Encounter Summary ---
Author Organization [facility] Address [address] [facility] [address] [place] [address] Phone Care Team Providers Care Subsurface Augmentee Operator Name Role Phone Rajendra Edward MD Unavailable Park Leo RN Unavailable [email or web address] Jaylen Oshea MD Unavailable [phone] Denis Gibson Unavailable [phone] Denis Gibson Primary Care Provid er Nany Rowland RN Unavailable [email or web address] Encounter Details Date Type Department Care Team (Late st Contact Info) Description 12/04/2023 Transcribe Orders [facility] Laboratory [address] [address] Rajendra Edward MD [address] [place] [phone] Toby [email or web address] Prostate cancer metastatic to multiple sites [...] 4:15 PM EDT Telemedicine - audio only [facility] Cancer [address] [address] Rajendra dEward MD [address] [place] [phone] Toby [email or web address] 02/17/2025 9:30 AM EST Office Visit [facility] at [address] [address] Rajendra Edward MD [address] [place] [phone] Toby [email or web address] [place] Scheduled Orders Name Type Priority Associated [...] Primary documented in this encounter Care Teams Subsurface Augmentee Operator Relationship Specialty Start Date End Date Denis Gibson PA [facility] [place] [address] PCP - General Physician Loading Machine Tool Setter 07/29/23 Rajendra Edward MD [address] [place] [phone] South@ [facility] Primary Oncologist Hematology and Oncology 05/08/15 Park Leo RN [address] [place] [phone] [email or web address] Primary Infusion Nurse 05/08/15 Jaylen Oshea MD [address] [place] [address] Referring Physician 06/01/15 Denis Gibson PA [address] [place] [address] 01/04/19 Nany Rowland RN [address] [place] [address] Paty [email or web address] Nurse Navigator 04/26/24 documented as of this encounter Additional Source Comments The information contained in this document represents components of the legal health record. It is not the complete legal health record.[facility]
--- OUTSIDE RECORDS SUMMARY | 2024-12-01 11:49 | XMS_ITS | Encounter Summary ---
Author Organization [facility] Address [address] [facility] [address] [place] [address] Phone Care Team Providers Care Network Operations Specialist Name Role Phone Rajendra Edward MD Unavailable Park Leo RN Unavailable [email or web address] Jaylen Oshea MD Unavailable [phone] Denis Gibson Unavailable [phone] Denis Gibson Primary Care Provid er Nany Rowland RN Unavailable [email or web address] Encounter Details Date Type Department Care Team (Late st Contact Info) Description 12/08/2023 Transcribe Orders [facility] Laboratory [address] [address] Rajendra Edward MD [address] [place] [phone] Toby [email or web address] [place] Screening for prostate cancer (Primary Dx) [...] 4:15 PM EDT Telemedicine - audio only [facility] [address] [address] Rajendra Edward MD [address] [place] [phone] Toby [email or web address] 02/17/2025 9:30 AM EST Office Visit [facility] at [address] [address] Rajendra Edward MD [address] [place] [phone] Toby [email or web address] [place] documented as of this encounter Results * PSA (screening) (12/08/2023 10:15 AM EDT) PSA 0.49 0 - 4.00 ng/mL [facility] Comment: Test Methodology Una e801 Patient results determined by assays using different manufacturers or methods may not be comparable. Blood 12/08/2023 10:1 5 AM EDT 12/08/2023 10:32 AM EDT us Rajendra Edward MD LAB BLOOD ORDERABLES Hali suarez Result [facility] [address] [place], [place] [phone] documented in this encounter Visit Diagnoses Diagnosis Screening for prostate cancer- Primary Special screening for malignant neoplasm of prostate documented in this encounter Care Teams Network Operations Specialist Relationship Specialty Start Date End Date Denis Gibson PA [address] [place] [address] PCP - General Physician Medical Front Desk Specialist 07/29/23 Rajendra Edward MD [address] [place] [phone] South@ [email or web address].[facility] Primary Oncologist Hematology and Oncology 05/08/15 Park Leo, RN [address] [place] [phone] [email or web address] Primary Infusion Nurse 05/08/15 Jaylen Oshea MD [address] [place] [address] [email or web address] Referring Physician 06/01/15 Denis Gibson PA [address] [place] [address] 01/04/19 Nany Rowland, WANDER [address] [place] [address] Paty [email or web address] Nurse Navigator 04/26/24 documented as of this encounter Additional Source Comments The information contained in this document represents components of the legal health record. It is not the complete legal health record.[facility]
--- OUTSIDE RECORDS SUMMARY | 2024-12-01 11:49 | XMS_ITS ---
Author Organization [facility] Address [address] [facility] [address] [place] [address] Phone Care Team Providers Care Community Development Manager Name Role Phone Rajendra Edward MD Unavailable Park Leo RN Unavailable [email or web address] Jaylen Oshea MD Unavailable [phone] Denis Lopez Unavailable [phone] Denis Lopez Primary Care Provid er Nany Rowland RN Unavailable [email or web address] Active Problems Patient Care Coordination No te Formatting of this note migh t be different from the original. 04/26/[address] [place] [address] [facility] Problem Noted Date Diagnosed Date Hx [...] 07, 2020 Entered By: DENIS LOPEZ Comment: [employer] Product ICM model M301 serial [id number] May,. Bradycardia 01/04/2022 Prostate cancer metastatic to multiple sites Assessment & Plan (09/01/2022 4:12 PM EDT): Follows very closely and consistently with Dr Edward at [facility]. History of prostate cancer with mets [...]
--- OUTSIDE RECORDS SUMMARY | 2024-12-01 11:49 | XMS_ITS | Clinical Summary ---
Author Organization [facility] Address [address] [facility] [address] [place] [address] Phone Care Team Providers Care Stoker Erector Name Role Phone Rajendra Edward MD Unavailable [phone] Park Leo RN Unavailable [email or web address] Jaylen Oshea MD Unavailable [phone] Dilan Lopez Unavailable [phone] Dilan Lopez Primary Care Provid er Nany Rowland RN Unavailable [email or web address] Allergies Active Allergy Reactions Criticality Noted Date Comments Bicalutamide Vomiting Low 05/04/2015 Iodinated Contrast Media Hives,Rash Low 01/22/2006 Medications Ca cit-D3-mag#11-zin v-bfdu-aym-bor (CALTRATE 600+D) 600 mg calcium- 800 unit-50 [...] t be different from the original. 04/26/2024 [place] in [facility] Problem Noted Date Diagnosed Date Hx [...] 07, 2020 Entered By: DILAN LOPEZ Comment: u.sit Product ICM model M301 serial [id number] may,. Bradycardia 01/04/2022 Prostate cancer metastatic to multiple sites Assessment & Plan (09/01/2022 4:12 PM EDT): Follows very closely and consistently with Dr Edward at [facility]. History of prostate cancer with mets [...] [facility] [address] [address] Rajendra Edward MD Prostate cancer metastatic to multiple sites (Primary Dx) 11/10/2024 10:56 AM EDT - 11/10/2024 11:59 PM EDT Hospital Encounter [facility] [address] [address] Rajendra Edward MD Discharge Disposition: Home or Self Care 11/10/2024 Transcribe Orders [facility] [address] [address] Rajendra Edward MD Screening for prostate cancer (Primary Dx); Prostate cancer metastatic to multiple sites 10/12/2024 Refill [facility] [address] [address] Nany Rowland, real estate inspector Refill 10/12/2024 Telephone [facility] [address] [address] Leslie Miguel refill; Medication Management from Last [...] 4:15 PM EDT Telemedicine - audio only [facility] and [facility] [place] at [address] [address] Rajendra Edward MD [address] [place] [phone] Toby [email or web address] 02/17/2025 9:30 AM EST Office Visit [facility] and [facility] at [address] [address] Rajendra Edward MD [address] [place] [phone] Toby [email or web address]. [place] Health Maintenance Due Date Last Done [...] this topic Medical Devices Implanted Type Area Kiln Worker Device Identifier Shelf Expiration Date Model / Serial / Lot Bone Cement Antibiotic Refobacin - [id number] Implanted:Qty: 2 on 09/02/2022 by Jaison Ch MD at [facility] Left: Hip [employer] 10/13/2024 [id number] / / [id number] Hip Liner 30d25qo Acetabular Dm Longevity - [id number] Implanted:Qty: 1 on 09/02/2022 by Jaison Ch MD at [facility] Left: Hip [employer] 10/10/2026 [id number] / / [id number] Acetabular Shell 54mm Size F G7 Porous Plasma [place] [employer] Hole - [id number] Implanted:Qty: 1 on 09/02/2022 by Jaison Ch MD at [facility] Left: Hip [employer] 04/25/2032 [id number] / / [id number] Screw Dome 6.5x35mm G7 Aceetabular Low Profile Hip - [id number] Implanted:Qty: 1 on 09/02/2022 by Jaison Ch MD at [facility] Left: Hip [employer] 01/15/2032 [id number] / / [id number] Screw Bone 6.5x30mm Hip Dome G7 Acetabular Low Profile - [id number] Implanted:Qty: 1 on 09/02/2022 by Jaison Ch MD at [facility] Left: Hip [employer] 01/04/2032 [id number] / / [id number] Kit Preparation Cement Femoral Bone Quick Use Bx/1ea - [id number] Implanted:Qty: 1 on 09/02/2022 by Jaison Ch MD at [facility] Left: Hip [employer] 02/03/2027 [id number] / / [id number] Acetabular Liner 44mm Component Dual Mobility G7 - [id number] Implanted:Qty: 1 on 09/02/2022 by Jaison Ch MD at [facility] Left: Hip [employer] 04/30/2032 [id number] / / [id number] Hip Centralizer 15mm Implant Cemented Versys 16b Bx/1ea - [id number] Implanted:Qty: 1 on 09/02/2022 by Jaison Ch MD at [facility] Left: Hip [employer] 07/15/2027 [id number] / / [id number] Hip Stem 13mm Femoral Echo Fx [place] Std Offset - [id number] Implanted:Qty: 1 on 09/02/2022 by Jaison Ch MD at [facility] Left: Hip [employer] 03/19/2026 [id number] / / [id number] Hip 6.0x28mm Active Articulation Dual Mobility [place] Skirtless Modular Plus - [id number] Implanted:Qty: 1 on 09/02/2022 by Jaison Ch MD at [facility] Left: Hip [employer] 07/15/2031 [id number] / / [id number] Procedures Procedure Name Priority Date/Time Associated Diagnosis [...] EDT) SODIUM 135 133 - 146 mmol/L [facility] POTASSIUM 5.0 3.3 - 5.1 mmol/L [facility] CHLORIDE 99 96 - 108 mmol/L [facility] CO2 25 21 - 35 mmol/L [facility] BUN 21(H) 6 - 19 mg/dL [facility] CREATININE 0.90 0.5 - 1.5 mg/dL [facility] GLUCOSE 102(H) 70 - 99 mg/dL [facility] ALBUMIN 4.1 3.9 - 4.8 g/dL [facility] TOTAL PROTEIN 7.5 6.5 - 8.0 g/dL [facility] CALCIUM 9.6 8.4 - 10.3 mg/dL [facility] ALKALINE PHOSPHATASE 161(H) 39 - 117 U/L [facility] TOTAL BILIRUBIN 0.4 0.0 - 1.2 mg/dL [facility] AST 19 0 - 37 U/L [facility] ALT 32 0 - 40 U/L [facility] GLOBULIN 3.4 1 - 4.8 g/dL [facility] EGFR 86 >59 mL/min/1.7 3m2 [facility] Comment:Estimated glomerular filtration rate calculated using the CKD-EPI refit equation. ANION GAP 16 10 - 20 mmol/L [facility] Blood 11/10/2024 10:5 6 AM EDT 11/10/2024 11:02 AM EDT us Rajendra Edward MD LAB BLOOD ORDERABLES Hali suarez Result [address] [address] * (ABNORMAL) CBC and differential (11/10/2024 10:56 AM EDT) WBC 5.87 4.00 - 11.00 K/uL [facility] RBC 4.63 4.50 - 5.90 M/uL [facility] HGB 13.4(L) 13.5 - 17.5 g/dL [facility] HCT 40.7(L) 41.0 - 53.0 % [facility] PLT 264 150 - 450 K/uL [facility] MCV 87.9 80.0 - 100.0 fL [facility] MCH 28.9 27.0 - 31.0 pg [facility] MCHC 32.9 32.0 - 36.0 g/dL [facility] RDW 14.4 11.5 - 14.5 % [facility] MPV 11.9 8.4 - 12.0 fL [facility] NRBC 0.00 0.00 /100 WBCs [facility] ABSOLUTE NRBC 0.00 0.00 K/uL [facility] DIFF METHOD Auto [facility] NEUTS 61.0 48.0 - 76.0 % [facility] LYMPHS 24.0 18.0 - 41.0 % [facility] MONOS 12.6(H) 4.0 - 11.0 % [facility] EOS 1.4 0.0 - 5.0 % [facility] BASOS 0.7 0.0 - 1.5 % [facility] Granulocytes, immature (%) 0.3 0.0 - 0.9 % [facility] ABSOLUTE NEUTS 3.58 1.92 - 7.60 K/uL [facility] ABSOLUTE LYMPHS 1.41 0.72 - 4.10 K/uL [facility] ABSOLUTE MONOS 0.74 0.16 - 1.10 K/uL [facility] ABSOLUTE EOS 0.08 0.00 - 0.50 K/uL [facility] ABSOLUTE BASOS 0.04 0.00 - 0.15 K/uL [facility] Granulocytes, immature 0.02 0.00 - 0.09 K/uL [facility] Blood 11/10/2024 10:5 6 AM EDT 11/10/2024 11:02 AM EDT Rajendra Edward MD LAB BLOOD ORDERABLES Hali l Result Performing Organization Address [facility] Co de Phone Number [address] [address] * (ABNORMAL) Testosterone, total (11/10/2024 10:56 AM EDT) TESTOSTERONE 11(L) 249 - 836 ng/dL [facility] Blood 11/10/2024 10:5 6 AM EDT 11/10/2024 11:02 AM EDT Rajendra Edward MD LAB BLOOD ORDERABLES Hali l Result Performing Organization Address [facility] Co de Phone Number [address] [address] * (ABNORMAL) PSA (screening) (11/10/2024 10:56 AM EDT) PSA 5.46(H) 0 - 4.00 ng/mL [facility] Comment: Test Methodology Una e801 Patient results determined by assays using different manufacturers or methods may not be comparable. Blood 11/10/2024 10:5 6 AM EDT 11/10/2024 11:02 AM EDT Rajendra Edward MD LAB BLOOD ORDERABLES Hali l Result Performing Organization Address City/[facility]/ZIP Co de Phone Number [address] [address] from Last 3 Months Insurance NETWORK Advance Directives For more information, please contact: [phone] (9AM - 5PM [facility], Friday-Friday) Documents on File Type Date Recorded Patient Call Worker Expl anation Healthcare Proxy 09/06/2022 11:48 AM Healthcare Proxy 04/07/2015 2:36 PM * Full Code (Latest Code Status on File) Date Activated Date Inactivated Comments 08/30/2022 2:09 PM Question Answer Comments Code Status Confirmed With: PatientFamily Healthcare Agents on File Name Relationship Healthcare Agent [facility] Communication Sophie Brock Spouse .Primary Health Care Agent (Proxy form on file) Care Teams Stoker Erector Relationship Specialty Start Date End Date Dilan Lopez PA [address] [place] [phone] PCP - General Physician Motor Bike Mechanic 07/29/23 Rajendra Edward MD [address] [place] [phone] South@ [email or web address] Primary Oncologist Hematology and Oncology 05/08/15 Park Leo RN [address] [place] [phone] [email or web address] Primary Infusion Nurse 05/08/15 Jaylen Oshea MD [address] [place] [address] [email or web address] Referring Physician 06/01/15 Dilan Lopez PA [address] [place] [address] 01/04/19 Nany Rowland, WANDER [address] [place] [address] Paty [email or web address] Nurse Navigator 04/26/24 Additional Source Comments The information contained in this document represents components of the legal health record. It is not the complete legal health record.[facility]
--- OUTSIDE RECORDS SUMMARY | 2024-12-01 11:50 | XMS_ITS | Encounter Summary ---
Author Organization [facility] Address [address] [facility] [address] [place] [address] Phone Care Team Providers Care Traveling Secretary Name Role Phone Rajendra Edward MD Unavailable Park Leo RN Unavailable [email or web address] Jaylen Oshea MD Unavailable [phone] Denis Gibson Unavailable + [phone] Denis Gibson Primary Care Provid er Nany Rowland RN Unavailable [email or web address] Encounter Details Date Type Department Care Team (Late st Contact Info) Description 08/13/2023 Transcribe Orders Virtual Department [address] [place] [address] System, Provider Not In, [facility] Partners [address] [address] Leg weakness, bilateral (Primary Dx) Social History [...] 4:15 PM EDT Telemedicine - audio only [facility] at [address] [address] Rajendra Edward MD [address] [place] [phone] Toby [email or web address] 02/17/2025 9:30 AM EST Office Visit [facility] at [address] [address] Rajendra Edward MD [address] [place] [phone] Toby [email or web address] [place] documented as of this encounter Visit Diagnoses Diagnosis Leg weakness, bilateral- Primary Muscle weakness (generalized) documented in this encounter Care Teams Traveling Secretary Relationship Specialty Start Date End Date Denis Gibson PA [address] [place] [address] PCP - General Physician Federal Air Marshal 07/29/23 Rajendra Edward MD [address] [place] [phone] South@ [email or web address] Primary Oncologist Hematology and Oncology 05/08/15 Park Leo RN [address] [place] [phone] [email or web address] Primary Infusion Nurse 05/08/15 Jaylen Oshea MD [address] [place] [address] [email or web address] Referring Physician 06/01/15 Denis Gibson PA [address] [place] [address] 01/04/19 Nany Rowland RN [address] [place] [address] Paty [email or web address] Nurse Navigator 04/26/24 documented as of this encounter Additional Source Comments The information contained in this document represents components of the legal health record. It is not the complete legal health record.[facility]
--- OUTSIDE RECORDS SUMMARY | 2024-12-01 11:50 | XMS_ITS | Encounter Summary ---
Author Organization [facility] Address [address] [facility] [address] [place] [address] Phone Care Team Providers Care Bridge Welder Name Role Phone Rajendra Edward MD Unavailable Park Leo RN Unavailable [email or web address] Jaylen Oshea MD Unavailable [phone] Denis Gibson Unavailable + [phone] Denis Gibson Primary Care Provid er Denis Gibson Primary Care Provid er Nany Rowland RN Unavailable [email or web address] Encounter Details Date Type Department Care Team (Late st Contact Info) Description 06/30/2023 Procedure Pass [facility] Endoscopy Admitting Dept Virtual Department [address] [place] [address] Social History Tobacco Use Types Packs/Day Years [...] - audio only [facility] at [address] [address] Rajendra Edward MD [address] [place] [phone] Toby [email or web address] 02/17/2025 9:30 AM EST Office Visit [facility] and [facility] at [address] [address] Rajendra Edward MD [address] [place] [phone] Toby [email or web address] [place] documented as of this encounter Visit Diagnoses Not on filedocumented in this encounter Care Teams Bridge Welder Relationship Specialty Start Date End Date Denis Gibson PA [address] [place] [address] PCP - General 12/07/20 07/28/23 Denis Gibson PA [facility] [place] [place] [address] PCP - General Physician Epic Willow Analyst 07/29/23 Rajendra Edward MD [address] [place] [phone] South@ [email or web address] Primary Oncologist Hematology and Oncology 05/08/15 Park Leo RN [address] [place] [phone] [email or web address] Primary Infusion Nurse 05/08/15 Jaylen Oshea MD [address] [place] [address] [email or web address] Referring Physician 06/01/15 Denis Gibson PA [address] [place] [address] 01/04/19 Nany Rowland RN [address] [place] [address] Paty [email or web address] Nurse Navigator 04/26/24 documented as of this encounter Additional Source Comments The information contained in this document represents components of the legal health record. It is not the complete legal health record.[facility]
--- OUTSIDE RECORDS SUMMARY | 2024-12-01 11:50 | XMS_ITS | Encounter Summary ---
Author Organization [facility] Address [address] [facility] [address] [place] [address] Phone Care Team Providers Care Assistant Store Leader Name Role Phone Rajendra Edward MD Unavailable Park Leo RN Unavailable [email or web address] Jaylen Oshea MD Unavailable [phone] Denis Gibson Unavailable +- [phone] Denis Gibson Primary Care Provid er Denis Gibson Primary Care Provid er Nany Rowland RN Unavailable [email or web address] Encounter Details Date Type Department Care Team (Late st Contact Info) Description 07/06/2022 Procedure Pass [facility], Ct Scan - [address] [address] Social History Tobacco Use Types Packs/Day Years [...] 3:03 PM EDT Khadijah Taylor RN * [place] Suicide Severity Rating Scale (Screener/Recent Self-Report) Question [...] 4:15 PM EDT Telemedicine - audio only [facility] [place] at [address] [address] Rajendra Edward MD [address] [place] [phone] Toby [email or web address] 02/17/2025 9:30 AM EST Office Visit [facility] at [address] [address] Rajendra Edward MD [address] [place] [phone] Toyb [email or web address] [place] documented as of this encounter Visit Diagnoses Not on filedocumented in this encounter Additional Health Concerns Infection Onset Date Last Indicated Resolved Time CoV-Risk 07/06/2022 07/06/2022 07/06/2022 3:45 PM EDT COVID-19 07/06/2022 07/06/2022 07/27/2022 1:21 AM EDT documented as of this encounter Care Teams Assistant Store Leader Relationship Specialty Start Date End Date Denis Gibson PA [address] [place] [address] PCP - General 12/07/20 07/28/23 Denis Gibson PA [address] [place] [address] PCP - General Physician Dye Room Helper 07/29/23 Rajendra Edward MD [address] [place] [phone] South@ [email or web address] Primary Oncologist Hematology and Oncology 05/08/15 Park Leo, WANDER [address] [place] [phone] [email or web address] Primary Infusion Nurse 05/08/15 Jaylen Oshea MD [address] [place] [address] Referring Physician 06/01/15 Denis Gibson PA [address] [place] [address] 01/04/19 Nany Rowland RN [address] [place] [address] Paty [email or web address] Nurse Navigator 04/26/24 documented as of this encounter Additional Source Comments The information contained in this document represents components of the legal health record. It is not the complete legal health record.[facility]
--- OUTSIDE RECORDS SUMMARY | 2024-12-01 11:50 | XMS_ITS | Encounter Summary ---
Author Organization [facility] Address [address] [facility] [address] [place] [address] Phone Care Team Providers Care Correctional Corporal Name Role Phone Rajendra Edward MD Unavailable [phone] Park Leo RN Unavailable [email or web address] Jaylen Oshea MD Unavailable [phone] Denis Gibson Unavailable + [phone] Denis Gibson Primary Care Provid er Denis Gibson Primary Care Provid er Nayn Rowland RN Unavailable [email or web address] Reason for Referral * MRI/CAT Scan - Closed Specialty Diagnoses / Procedures Referred By Contac t Referred To Contact Radiology Diagnoses Spinal stenosis, lumbar region with neurogenic claudication Procedures MRI Lumbar Spine System, Provider Not In, [facility] [address] [address] Referral ID Status Reason Start Date Expiration Date Visits Re quested Visits Authorized [id number] Closed 07/18/2023 09/14/2024 1 1 Encounter Details Date Type Department Care Team (Late st Contact Info) Description 07/18/2023 Transcribe Orders [facility] Department [address] [place] [address] System, Provider Not In, [facility] [address] [address] Spinal stenosis, lumbar region with neurogenic claudication [...] 4:15 PM EDT Telemedicine - audio only [facility] at [address] [address] Rajendra Edward MD [address] [place] [phone] Toby [email or web address] 02/17/2025 9:30 AM EST Office Visit [facility] at [facility] [address] [facility] 2nd [place] [address] Rajendra Edward MD [address] [place] [phone] Toby [email or web address] documented as of this encounter Results [...] claudication documented in this encounter Care Teams Correctional Corporal Relationship Specialty Start Date End Date Denis Gibson PA [address] [place] [address] PCP - General 12/07/20 07/28/23 Denis Gibson PA [address] [place] [address] PCP - General Physician Posting Machine Operator 07/29/23 Rajendra Edward MD [address] [place] [phone] South@ [facility] Primary Oncologist Hematology and Oncology 05/08/15 Park Leo, WANDER [address] [place] [phone] [email or web address] Primary Infusion Nurse 05/08/15 Jaylen Oshea MD [address] [place] [address] [email or web address] Referring Physician 06/01/15 Denis Gibson PA [address] [place] [address] 01/04/19 Nany Rowland RN [address] [place] [address] Paty [email or web address].[facility] Nurse Navigator 04/26/24 documented as of this encounter Additional Source Comments The information contained in this document represents components of the legal health record. It is not the complete legal health record.[facility]
--- OUTSIDE RECORDS SUMMARY | 2024-12-01 11:50 | XMS_ITS | Encounter Summary ---
Author Organization [facility] Address [address] [facility] [address] [place] [address] Phone Care Team Providers Care Load Builder Name Role Phone Rajendra Edward MD Unavailable Park Leo RN Unavailable [email or web address] Jaylen Oshea MD Unavailable [phone] Denis Gibson Unavailable +- [phone] Denis Gibson Primary Care Provid er Denis Gibson Primary Care Provid er Nany Rowland RN Unavailable [email or web address] Encounter Details Date Type Department Care Team (Late st Contact Info) Description 08/31/2022 Procedure Pass [facility], Ct Scan - [address] [address] Social History Tobacco Use Types Packs/Day Years [...] 4:15 PM EDT Telemedicine - audio only [facility] at [address] [address] Rajendra Edward MD [address] [place] [phone] Toby [email or web address] 02/17/2025 9:30 AM EST Office Visit [facility] at [address] [address] Rajendra Edward MD [address] [place] [phone] Toby [email or web address] documented as of this encounter Visit Diagnoses Not on filedocumented in this encounter Care Teams Load Builder Relationship Specialty Start Date End Date Denis Gibson PA [facility] [place] [address] PCP - General 12/07/20 07/28/23 Denis Gibson PA [address] [place] [address] PCP - General Physician Platen Builder Up 07/29/23 Rajendra Edward MD [address] [place] [phone] South@ [facility] Primary Oncologist Hematology and Oncology 05/08/15 Park Leo, RN [address] [place] [phone] [email or web address] Primary Infusion Nurse 05/08/15 Jaylen Oshea MD [address] [place] [address] [email or web address] Referring Physician 06/01/15 Denis Gibson PA [address] [place] [address] 01/04/19 Nany Rowland, WANDER [address] [place] [address] Paty [email or web address] Nurse Navigator 04/26/24 documented as of this encounter Additional Source Comments The information contained in this document represents components of the legal health record. It is not the complete legal health record.[facility]
--- OUTSIDE RECORDS SUMMARY | 2024-12-01 11:51 | XMS_ITS | Encounter Summary ---
Author Organization [facility] Address [address] [facility] [address] [place] [address] Phone Care Team Providers Care Marketing Technologist Name Role Phone Rajendra Edward MD Unavailable Park Leo RN Unavailable [email or web address] Jaylen Oshea MD Unavailable [phone] Denis Gibson Unavailable + [phone] Denis Gibson Primary Care Provid er Denis Gibson Primary Care Provid er Nany Rowland RN Unavailable [email or web address] Encounter Details Date Type Department Care Team (Late st Contact Info) Description 07/18/2023 Procedure Pass [facility], [address] [place] [address] Social History Tobacco Use Types Packs/Day Years [...] 4:15 PM EDT Telemedicine - audio only [facility] at [address] [address] Rajendra Edward MD [address] [place] [phone] Toby [email or web address] 02/17/2025 9:30 AM EST Office Visit [facility] at [address] [address] Rajendra Edward MD [address] [place] [phone] Toby [email or web address] [place] documented as of this encounter Visit Diagnoses Not on filedocumented in this encounter Care Teams Marketing Technologist Relationship Specialty Start Date End Date Denis Gibson PA [address] [place] [address] PCP - General 12/07/20 07/28/23 Denis Gibson PA [facility] [place] [address] PCP - General Physician Telegraph Installer 07/29/23 Rajendra Edward MD [address] [place] [phone] South@ [facility] Primary Oncologist Hematology and Oncology 05/08/15 Park Leo RN [address] [place] [phone] [email or web address] Primary Infusion Nurse 05/08/15 Jaylen Oshea MD [address] [place] [address] [email or web address] Referring Physician 06/01/15 Denis Gibson PA [address] [place] [address] 01/04/19 Nany Rowland RN [address] [place] [address] Paty [email or web address] Nurse Navigator 04/26/24 documented as of this encounter Additional Source Comments The information contained in this document represents components of the legal health record. It is not the complete legal health record.[facility]
--- OUTSIDE RECORDS SUMMARY | 2024-12-01 11:51 | XMS_ITS | Encounter Summary ---
Author Organization [facility] Address [address] [facility] [address] [place] [address] Phone Care Team Providers Care Hands Parter Name Role Phone Rajendra Edward MD Unavailable [phone] Park Leo RN Unavailable [email or web address] Jaylen Oshea MD Unavailable [phone] Denis Gibson Unavailable [phone]- [phone] Denis Gibson Primary Care Provid er Denis Gibson Primary Care Provid er Nany Rowland RN Unavailable [email or web address] Encounter Details Date Type Department Care Team (Late st Contact Info) Description 08/30/2022 Procedure Pass [facility], Ct Scan - [address] [address] Social History Tobacco Use Types Packs/Day Years [...] 4:32 AM EDT Miriam Rivas RN * [place] Suicide Severity Rating Scale (Screener/Recent Self-Report) Question [...] 4:15 PM EDT Telemedicine - audio only [facility] at [address] [address] Rajendra Edward MD [address] [place] [phone] Toby [email or web address] 02/17/2025 9:30 AM EST Office Visit [facility] at [address] [address] Rajendra Edward MD [address] [place] [phone] Toby [email or web address] [place] documented as of this encounter Visit Diagnoses Not on filedocumented in this encounter Care Teams Hands Parter Relationship Specialty Start Date End Date Denis Gibson PA [address] [place], [place] [phone] PCP - General 12/07/20 07/28/23 Denis Gibson PA [address] [place] [address] PCP - General Physician Therapist Occupational 07/29/23 Rajendra Edward MD [address] [place] [phone] South@ [facility] Primary Oncologist Hematology and Oncology 05/08/15 Park Leo, WANDER [address] [place] [phone] [email or web address] Primary Infusion Nurse 05/08/15 Jaylen Oshea MD [address] [place] [address] [email or web address] Referring Physician 06/01/15 Denis Gibson PA [address] [place] [address] 01/04/19 Nany Rowland RN [address] [place] [address] Paty [email or web address] Nurse Navigator 04/26/24 documented as of this encounter Additional Source Comments The information contained in this document represents components of the legal health record. It is not the complete legal health record.[facility]
--- OUTSIDE RECORDS SUMMARY | 2024-12-01 11:51 | XMS_ITS | Encounter Summary ---
Author Organization [facility] Address [address] [facility] [address] [place] [address] Phone Care Team Providers Care Pesticide Use Medical Coordinator Name Role Phone Rajendra Edward MD Unavailable Park Leo RN Unavailable [email or web address] Jaylen Oshea MD Unavailable [phone] Denis Gibson Unavailable [phone]- [phone] Denis Gibson Primary Care Provid er Denis Gibson Primary Care Provid er Nany Rowland RN Unavailable [email or web address] Encounter Details Date Type Department Care Team (Late st Contact Info) Description 02/24/[address] [facility] Laboratory [address] [address] Rajendra Edward MD [address] [place] [phone] Toby [email or web address] [place] Screening for prostate cancer (Primary [...] 4:15 PM EDT Telemedicine - audio only [facility] [place] at [address] [address] Rajendra Edward MD [address] [place] [phone] Toby [email or web address]. [place] 02/17/2025 9:30 AM EST Office Visit [facility] [place] at [address] [address] Rajendra Edward MD [address] [place] [phone] Toby [email or web address] [place] documented as of this encounter Results * PSA (screening) (02/24/2023 9:27 AM EST) PSA 0.12 0 - 4.00 ng/mL [facility] Comment: Test Methodology Una e801 Patient results determined by assays using different manufacturers or methods may not be comparable. Blood 02/24/2023 9:27 AM EST 02/24/2023 9:33 AM EST us Rajendra Edward MD LAB BLOOD ORDERABLES Hali daniela Result [facility] [address] [place] [address] documented in this encounter Visit Diagnoses Diagnosis Screening for prostate cancer- Primary Special screening for malignant neoplasm of prostate documented in this encounter Care Teams Pesticide Use Medical Coordinator Relationship Specialty Start Date End Date Denis Gibson PA [address] [place] [address] PCP - General 12/07/20 07/28/23 Denis Gibson PA [address] [place] [phone] PCP - General Physician Well Service Floor Worker 07/29/23 Rajendra Edward MD [address] [place] [phone] South@ [email or web address] Primary Oncologist Hematology and Oncology 05/08/15 Park Leo, RN [address] [place] [phone] [email or web address] Primary Infusion Nurse 05/08/15 Jaylen Oshea MD [address] [place] [address] [email or web address] Referring Physician 06/01/15 Denis Gibson PA [address] [place] [address] 01/04/19 Nany Rowland, WANDER [address] [place] [address] Paty [email or web address] Nurse Navigator 04/26/24 documented as of this encounter Additional Source Comments The information contained in this document represents components of the legal health record. It is not the complete legal health record.[facility]
--- OUTSIDE RECORDS SUMMARY | 2024-12-01 11:51 | XMS_ITS | Encounter Summary ---
Author Organization [facility] Address [address] [facility] [address] [place] [address] Phone Care Team Providers Care Application Development Liaison Name Role Phone Rajendra Edward MD Unavailable [phone] Park Leo RN Unavailable [email or web address] Jaylen Oshea MD Unavailable [phone] Denis Gibson Unavailable [phone] Denis Gibson Primary Care Provid er Denis Gibson Primary Care Provid er Nany Rowland RN Unavailable [email or web address] Reason for Referral * MRI/CAT Scan - Closed Specialty Diagnoses / Procedures Referred By Contac t Referred To Contact Radiology Diagnoses Cervicalgia Procedures MRI Cervical Spine Denis Gibson PA [address] [place] [address] Phone: tel: fax: Referral ID Status Reason Start Date Expiration Date Visits Re quested Visits Authorized [id number] Closed 01/23/2022 04/17/2022 1 1 Encounter Details Date Type Department Care Team (Latest Contact Info) Description 01/23/2022 Transcribe Orders [facility] Department [address] [place] [phone] Denis Gibson PA [address] [place] [address] Cervicalgia (Primary Dx) Social History Tobacco Use [...] 4:15 PM EDT Telemedicine - audio only [facility] [place] at [address] [address] Rajendra Edward MD [address] [place] [phone] Toby [email or web address] [place] 02/17/2025 9:30 AM EST Office Visit [facility] at [address] [address] Rajendra Edward MD [address] [place] [phone] Toby [email or web address] [place] documented as of this encounter Results [...] documented as of this encounter Care Teams Application Development Liaison Relationship Specialty Start Date End Date Denis Gibson PA [address] [place] [address] PCP - General 12/07/20 07/28/23 Denis Gibson PA [address] [place] [address] PCP - General Physician Jewel Bearing Driller 07/29/23 Rajendra Edward MD [address] [place] [phone] South@ [email or web address] Primary Oncologist Hematology and Oncology 05/08/15 Park Leo, WANDER [address] [place] [phone] [email or web address] Primary Infusion Nurse 05/08/15 Jaylen Oshea MD [address] [place] [address] [email or web address] Referring Physician 06/01/15 Denis Gibson PA [address] [place] [address] 01/04/19 Nany Rowland RN [address] [place] [address] Paty [email or web address] Nurse Navigator 04/26/24 documented as of this encounter Additional Source Comments The information contained in this document represents components of the legal health record. It is not the complete legal health record.[facility]
--- OUTSIDE RECORDS SUMMARY | 2024-12-01 11:51 | XMS_ITS | Encounter Summary ---
Author Organization [facility] Address [address] [facility] [address] [place] [address] Phone Care Team Providers Care Tax Manager Name Role Phone Rajendra Edward MD Unavailable [phone] Park Leo RN Unavailable [email or web address] Jaylen Oshea MD Unavailable [phone] Denis Gibson Unavailable [phone]- [phone] Denis Gibson Primary Care Provid er Denis Gibson Primary Care Provid er Nany Rowland RN Unavailable [email or web address] Encounter Details Date Type Department Care Team (Late st Contact Info) Description 08/30/2022 Procedure Pass [facility], Ct Scan - [address] [address] Social History Tobacco Use Types Packs/Day Years [...] 4:32 AM EDT Miriam Rivas RN * [place] Suicide Severity Rating Scale (Screener/Recent Self-Report) Question [...] EDT Telemedicine - audio only [facility] at [address] [address] Rajendra Edward MD [address] [place] [phone] Toby [email or web address] 02/17/2025 9:30 AM EST Office Visit [facility] at [address] [address] Rajendra Edward MD [address] [place] [phone] Tboy [email or web address] [place] documented as of this encounter Visit Diagnoses Not on filedocumented in this encounter Care Teams Tax Manager Relationship Specialty Start Date End Date Denis Gibson PA [address] [place], [place] [phone] PCP - General 12/07/20 07/28/23 Denis Gibson PA [address] [place] [address] PCP - General Physician Culinary Arts Instructor 07/29/23 Rajendra Edward MD [address] [place] [phone] South@ [employer].[facility] Primary Oncologist Hematology and Oncology 05/08/15 Park Leo, WANDER [address] [place] [phone] [email or web address] Primary Infusion Nurse 05/08/15 Jaylen Oshea MD [address] [place] [address] [email or web address] Referring Physician 06/01/15 Denis Gibson PA [address] [place] [address] 01/04/19 Nany Rowland RN [address] [place] [address] Paty [email or web address] Nurse Navigator 04/26/24 documented as of this encounter Additional Source Comments The information contained in this document represents components of the legal health record. It is not the complete legal health record.[facility]
--- OUTSIDE RECORDS SUMMARY | 2024-12-01 11:52 | XMS_ITS | Encounter Summary ---
Author Organization [facility] Address [address] [facility] [address] [place] [address] Phone Care Team Providers Care Technical Support Internship Name Role Phone Rajendra Edward MD Unavailable Park Leo RN Unavailable [email or web address] Jaylen Oshea MD Unavailable [phone] Denis Gibson Unavailable [phone] Denis Gibson Primary Care Provid er Nany Rowland RN Unavailable [email or web address] Encounter Details Date Type Department Care Team (Late st Contact Info) Description 06/09/2024 Transcribe Orders [facility] Laboratory [address] [address] Rajendra Edward MD [address] [place] [phone] Toby [email or web address] DU Screening for prostate cancer (Primary Dx); [...] 4:15 PM EDT Telemedicine - audio only [facility] [place] at [address] [address] Rajendra Edward MD [address] [place] [phone] Toby [email or web address] 02/17/2025 9:30 AM EST Office Visit [facility] at [address] [address] Rajendra Edward MD [address] [place] [phone] Toby [email or web address] [place] documented as of this encounter Results * (ABNORMAL) Testosterone, total (06/09/2024 10:17 AM EDT) TESTOSTERONE 9(L) 249 - 836 ng/dL [facility] Blood 06/09/2024 10:1 7 AM EDT 06/09/2024 10:27 AM EDT us Rajendra Edward MD LAB BLOOD ORDERABLES Hali l Result [address] [address] * (ABNORMAL) Comprehensive metabolic panel (06/09/2024 10:17 AM EDT) SODIUM 139 133 - 146 mmol/L [facility] POTASSIUM 4.5 3.3 - 5.1 mmol/L [facility] CHLORIDE 102 96 - 108 mmol/L [facility] CO2 27 21 - 35 mmol/L [facility] BUN 21(H) 6 - 19 mg/dL [facility] CREATININE 1.00 0.5 - 1.5 mg/dL [facility] GLUCOSE 85 70 - 99 mg/dL [facility] ALBUMIN 4.1 3.9 - 4.8 g/dL [facility] TOTAL PROTEIN 7.4 6.5 - 8.0 g/dL [facility] CALCIUM 9.6 8.4 - 10.3 mg/dL [facility] ALKALINE PHOSPHATASE 69 39 - 117 U/L [facility] TOTAL BILIRUBIN 0.3 0.0 - 1.2 mg/dL [facility] AST 23 0 - 37 U/L [facility] ALT 14 0 - 40 U/L [facility] GLOBULIN 3.3 1 - 4.8 g/dL [facility] EGFR 76 >59 mL/min/1.7 3m2 [facility] Comment:Estimated glomerular filtration rate calculated using the CKD-EPI refit equation. ANION GAP 15 10 - 20 mmol/L [facility] Blood 06/09/2024 10:1 7 AM EDT 06/09/2024 10:27 AM EDT us Rajendra Edward MD LAB BLOOD ORDERABLES Hali daniela Result [facility] [address] [place] [address] * (ABNORMAL) CBC and differential (06/09/2024 10:17 AM EDT) WBC 7.23 4.00 - 11.00 K/uL [facility] RBC 4.53 4.50 - 5.90 M/uL [facility] HGB 12.6(L) 13.5 - 17.5 g/dL [facility] HCT 39.2(L) 41.0 - 53.0 % [facility] PLT 178 150 - 450 K/uL [facility] MCV 86.5 80.0 - 100.0 fL [facility] MCH 27.8 27.0 - 31.0 pg [facility] MCHC 32.1 32.0 - 36.0 g/dL [facility] RDW 14.2 11.5 - 14.5 % [facility] MPV 11.9 8.4 - 12.0 fL [facility] NRBC 0.00 0.00 /100 WBCs [facility] ABSOLUTE NRBC 0.00 0.00 K/uL [facility] DIFF METHOD Auto [facility] NEUTS 61.3 48.0 - 76.0 % [facility] LYMPHS 26.0 18.0 - 41.0 % [facility] MONOS 10.5 4.0 - 11.0 % [facility] EOS 1.5 0.0 - 5.0 % [facility] BASOS 0.6 0.0 - 1.5 % [facility] Granulocytes, immature (%) 0.1 0.0 - 0.9 % [facility] ABSOLUTE NEUTS 4.43 1.92 - 7.60 K/uL [facility] ABSOLUTE LYMPHS 1.88 0.72 - 4.10 K/uL [facility] ABSOLUTE MONOS 0.76 0.16 - 1.10 K/uL [facility] ABSOLUTE EOS 0.11 0.00 - 0.50 K/uL [facility] ABSOLUTE BASOS 0.04 0.00 - 0.15 K/uL [facility] Granulocytes, immature 0.01 0.00 - 0.09 K/uL [facility] Blood 06/09/2024 10:1 7 AM EDT 06/09/2024 10:27 AM EDT Rajendra Edward MD LAB BLOOD ORDERABLES Hali l Result Performing Organization Address City/[facility]/ZIP Co de Phone Number [address] [address] * PSA (screening) (06/09/2024 10:17 AM EDT) PSA 1.68 0 - 4.00 ng/mL [facility] Comment: Test Methodology Una e801 Patient results determined by assays using different manufacturers or methods may not be comparable. Blood 06/09/2024 10:1 7 AM EDT 06/09/2024 10:26 AM EDT Rajendra Edward MD LAB BLOOD ORDERABLES Hali l Result Performing Organization Address City/[facility]/ZIP Co de Phone Number [address] [address] documented in this encounter Visit Diagnoses Diagnosis Screening for prostate cancer- Primary Special screening for malignant neoplasm of prostate Prostate cancer Malignant neoplasm of prostate documented in this encounter Care Teams Technical Support Internship Relationship Specialty Start Date End Date Denis Gibson PA [address] [place] [phone] PCP - General Physician Nut Sorter 07/29/23 Rajendra Edward MD [address] [place] [phone] South@ [email or web address].[email or web address] Primary Oncologist Hematology and Oncology 05/08/15 Park Leo, WANDER [address] [place] [phone] [email or web address] Primary Infusion Nurse 05/08/15 Jaylen Oshea MD [address] [place] [address] [email or web address] Referring Physician 06/01/15 Denis Gibson PA [address] [place] [address] 01/04/19 Nany Rowland RN [address] [place] [address] Paty [email or web address] Nurse Navigator 04/26/24 documented as of this encounter Additional Source Comments The information contained in this document represents components of the legal health record. It is not the complete legal health record.[facility]
--- OUTSIDE RECORDS SUMMARY | 2024-12-01 11:52 | XMS_ITS | Encounter Summary ---
Author Organization [facility] Address [address] [place] [address] [place] [address] Phone Care Team Providers Care Shipwright Apprentice Name Role Phone Jaylen Oshea MD Primary Care Provider [phone] Rajendra Edward MD Unavailable [phone] Park Leo RN Unavailable [email or web address] Jaylen Oshea MD Unavailable [phone] Denis Gibson Unavailable + [phone] Denis Gibson Primary Care Provid er Denis Gibson Primary Care Provid er Nany Rowland RN Unavailable [email or web address] Encounter Details Date Type Department Care Team (Late st Contact Info) Description 10/02/2017 Procedure Pass [facility], Radiology Department Social History Tobacco Use [...] 4:15 PM EDT Telemedicine - audio only [facility] at [address] [address] Rajendra Edward MD [address] [place] [phone] Toby [email or web address] 02/17/2025 9:30 AM EST Office Visit [facility] at [address] [address] Rajendra Edward MD [address] [place] [phone] Toby [email or web address] documented as of this encounter Visit Diagnoses Not on filedocumented in this encounter Additional Health Concerns Infection Onset Date Last Indicated Resolved Time CoV-Risk 07/06/2022 07/06/2022 07/06/2022 3:45 PM EDT COVID-19 07/06/2022 07/06/2022 07/27/2022 1:21 AM EDT documented as of this encounter Care Teams Shipwright Apprentice Relationship Specialty Start Date End Date Jaylen Oshea MD [address] [place] [address] PCP - General 04/03/15 12/06/20 Denis Gibson PA [address] [place] [phone] PCP - General 12/07/20 07/28/23 Denis Gibson PA [address] [place] [phone] PCP - General Physician Line Manager 07/29/23 Rajendra Edward MD [address] [place] [phone] South@ [email or web address] Primary Oncologist Hematology and Oncology 05/08/15 Park Leo, WANDER [address] [place] [phone] [email or web address] Primary Infusion Nurse 05/08/15 Jaylen Oshea MD [address] [place] [address] [email or web address] Referring Physician 06/01/15 Denis Gibson PA [address] [place] [phone] 01/04/19 Nany Rowland RN [address] [place] [phone] Paty [email or web address] Nurse Navigator 04/26/24 documented as of this encounter Additional Source Comments The information contained in this document represents components of the legal health record. It is not the complete legal health record.[facility]
--- OUTSIDE RECORDS SUMMARY | 2024-12-01 11:52 | XMS_ITS | Encounter Summary ---
Author Organization [facility] Address [address] [facility] [address] [place] [address] Phone Care Team Providers Care Wire Chief Name Role Phone Rajendra Edward MD Unavailable Park Leo RN Unavailable [email or web address] Jaylen Oshea MD Unavailable [phone] Denis Gibson Unavailable + [phone] Denis Gibson Primary Care Provid er Nany Rowland RN Unavailable [email or web address] Encounter Details Date Type Department Care Team (Late st Contact Info) Description 08/10/2024 Transcribe Orders [facility] Laboratory 10 [facility] 2nd [place] [address] Celina Carlton PA-C [address] [place] [address] Social History Tobacco Use Types Packs/Day Years [...] 4:15 PM EDT Telemedicine - audio only [facility] at [address] [address] Rajendra Edward MD [address] [place] [phone] Toby [email or web address] 02/17/2025 9:30 AM EST Office Visit [facility] at [address] [address] Rajendra Edward MD [address] [place] [phone] Toby [email or web address] [place] documented as of this encounter Visit Diagnoses Not on filedocumented in this encounter Care Teams Wire Chief Relationship Specialty Start Date End Date Denis Gibson PA [address] [place] [phone] PCP - General Physician Computer Aide 07/29/23 Rajendra Edward MD [address] [place] [phone] South@ [email or web address] Primary Oncologist Hematology and Oncology 05/08/15 Park Leo, WANDER [address] [place] [phone] [email or web address] Primary Infusion Nurse 05/08/15 Jaylen Oshea MD [address] [place] [address] [email or web address] Referring Physician 06/01/15 Denis Gibson PA [address] [place] [address] 01/04/19 Nany Rowland RN [address] [place] [phone] Paty [email or web address] Nurse Navigator 04/26/24 documented as of this encounter Additional Source Comments The information contained in this document represents components of the legal health record. It is not the complete legal health record.[facility]
--- OUTSIDE RECORDS SUMMARY | 2024-12-01 11:52 | XMS_ITS | Encounter Summary ---
Author Organization [facility] Address [address] [facility] [address] [place] [address] Phone Care Team Providers Care Pediatric Lpn Name Role Phone Rajendra Edward MD Unavailable Park Leo RN Unavailable [email or web address] Jaylen Oshea MD Unavailable [phone] Denis Gibson Unavailable + [phone] Denis Gibson Primary Care Provid er Denis Gibson Primary Care Provid er Nany Rowland RN Unavailable [email or web address] Encounter Details Date Type Department Care Team (Late st Contact Info) Description 01/23/2022 Procedure Pass [facility], [address] [address] Social History Tobacco Use Types Packs/Day Years [...] EDT Telemedicine - audio only [facility] at [address] [address] Rajendra Edward MD [address] [place] [phone] Toby [email or web address] [place] 02/17/2025 9:30 AM EST Office Visit [facility] at [address] [address] Rajendra Edward MD [address] [place] [phone] Toby [email or web address] [place] documented as of this encounter Visit Diagnoses Not on filedocumented in this encounter Additional Health Concerns Infection Onset Date Last Indicated Resolved Time CoV-Risk 07/06/2022 07/06/2022 07/06/2022 3:45 PM EDT COVID-19 07/06/2022 07/06/2022 07/27/2022 1:21 AM EDT documented as of this encounter Care Teams Pediatric Lpn Relationship Specialty Start Date End Date Denis Gibson PA [address] [place] [address] PCP - General 12/07/20 07/28/23 Denis Gibson PA [address] [place] [phone] PCP - General Physician Director Of Property Management 07/29/23 Rajendra Edward MD [address] [place] [phone] South@ [email or web address].[facility] Primary Oncologist Hematology and Oncology 05/08/15 Park Leo, WANDER [address] [place] [phone] [email or web address] Primary Infusion Nurse 05/08/15 Jaylen Oshea MD [address] [place] [address] [email or web address] Referring Physician 06/01/15 Denis Gibson PA [address] [place] [address] 01/04/19 Nany Rowland RN [address] [place] [address] Paty [email or web address] Nurse Navigator 04/26/24 documented as of this encounter Additional Source Comments The information contained in this document represents components of the legal health record. It is not the complete legal health record.[facility]
--- OUTSIDE RECORDS SUMMARY | 2024-12-01 11:52 | XMS_ITS | Encounter Summary ---
Author Organization [facility] Address [address] [facility] [address] [place] [address] Phone Care Team Providers Care Behavioral Health Counselor Name Role Phone Rajendra Edward MD Unavailable [phone] Park Leo RN Unavailable [email or web address] Jaylen Oshea MD Unavailable Denis Gibson Unavailable [phone] Denis Gibson Primary Care Provid er Denis Gibson Primary Care Provid er Nany Rowland RN Unavailable [email or web address] Encounter Details Date Type Department Care Team (Late st Contact Info) Description 05/13/2022 Transcribe Orders [facility] Laboratory [address] [address] Rajendra Edward MD [address] [place] [phone] Toby [email or web address]. [place] Screening for prostate cancer Social History [...] 4:15 PM EDT Telemedicine - audio only [facility] at [address] [address] Rajendra Edward MD [address] [place] [phone] Toby [email or web address]. DU 02/17/2025 9:30 AM EST Office Visit [facility] at [address] [address] Rajendra Edward MD [address] [place] [phone] Toby [email or web address] [place] documented as of this encounter Results * PSA (screening) (05/13/2022 9:24 AM EST) PSA 0.05 0 - 4.00 ng/mL [facility] Blood 05/13/2022 9:24 AM EST 05/13/2022 9:26 AM EST Rajendra Edward MD LAB BLOOD ORDERABLES Hali l Result [address] [address] documented in this encounter Visit Diagnoses Diagnosis Screening for prostate cancer Special screening for malignant neoplasm of prostate documented in this encounter Additional Health Concerns Infection Onset Date Last Indicated Resolved Time CoV-Risk 07/06/2022 07/06/2022 07/06/2022 3:45 PM EDT COVID-19 07/06/2022 07/06/2022 07/27/2022 1:21 AM EDT documented as of this encounter Care Teams Behavioral Health Counselor Relationship Specialty Start Date End Date Denis Gibson PA [address] [place] [address] PCP - General 12/07/20 07/28/23 Denis Gibson PA [address] [place] [phone] PCP - General Physician Cash Controller 07/29/23 Rajendra Edward MD [address] [place] [phone] South@ [email or web address] Primary Oncologist Hematology and Oncology 05/08/15 Park Leo, WANDER [address] [place] [phone] [email or web address] Primary Infusion Nurse 05/08/15 Jaylen Oshea MD [address] [place] [address] [email or web address] Referring Physician 06/01/15 Denis Gibson PA [address] [place] [address] 01/04/19 Nany Rowland RN [address] [place] [phone] Paty [email or web address] Nurse Navigator 04/26/24 documented as of this encounter Additional Source Comments The information contained in this document represents components of the legal health record. It is not the complete legal health record.[facility]
--- OUTSIDE RECORDS SUMMARY | 2024-12-01 11:52 | XMS_ITS | Encounter Summary ---
Author Organization [facility] Address [address] [facility] [address] [place] [address] Phone Care Team Providers Care Conche Operator Name Role Phone Rajendra Edward MD Unavailable Park Leo RN Unavailable [email or web address] Jaylen Oshea MD Unavailable Denis Gibson Unavailable [phone] Denis Gibson Primary Care Provid er Denis Gibson Primary Care Provid er Nany Rowland RN Unavailable [email or web address] Encounter Details Date Type Department Care Team (Late st Contact Info) Description 01/09/2022 Transcribe Orders [facility] Laboratory [address] [address] Rajendra Edward MD [address] [place] [phone] Toby [email or web address]. [place] Screening for prostate cancer Social History [...] 4:15 PM EDT Telemedicine - audio only [facility] at [address] [address] Rajendra Edward MD [address] [place] [phone] Toby [email or web address]. [place] 02/17/2025 9:30 AM EST Office Visit [facility] at [address] [address] Rajendra Edward MD [address] [place] [phone] Toby [email or web address]. [place] documented as of this encounter Results * PSA (screening) (01/09/2022 10:15 AM EDT) PSA 0.03 0 - 4.00 ng/mL [facility] Blood 01/09/2022 10:1 5 AM EDT 01/09/2022 10:27 AM EDT Rajendra Edward MD LAB BLOOD ORDERABLES Hali l Result [address] [address] documented in this encounter Visit Diagnoses Diagnosis Screening for prostate cancer Special screening for malignant neoplasm of prostate documented in this encounter Additional Health Concerns Infection Onset Date Last Indicated Resolved Time CoV-Risk 07/06/2022 07/06/2022 07/06/2022 3:45 PM EDT COVID-19 07/06/2022 07/06/2022 07/27/2022 1:21 AM EDT documented as of this encounter Care Teams Conche Operator Relationship Specialty Start Date End Date Denis Gibson PA [address] [place] [address] PCP - General 12/07/20 07/28/23 Denis Gibson PA [address] [place] [phone] PCP - General Physician Cnc Mill And Lathe Operator 07/29/23 Rajendra Edward MD [address] [place] [phone] South@ [facility] Primary Oncologist Hematology and Oncology 05/08/15 Park Leo, WANDER [address] [place] [phone] [email or web address] Primary Infusion Nurse 05/08/15 Jaylen Oshea MD [address] [place] [address] [email or web address] Referring Physician 06/01/15 Denis Gibson PA [address] [place] [address] 01/04/19 Nany Rowland RN [address] [place] [address] Paty [email or web address] Nurse Navigator 04/26/24 documented as of this encounter Additional Source Comments The information contained in this document represents components of the legal health record. It is not the complete legal health record.[facility]
--- OUTSIDE RECORDS SUMMARY | 2024-12-01 11:53 | XMS_ITS | Encounter Summary ---
Author Organization [facility] Address [address] [place] [address] [place] [address] Phone Care Team Providers Care Junior Accountant Bookkeeper Name Role Phone Jaylen Oshea MD Primary Care Provider [phone] Rajendra Edward MD Unavailable [phone] Park Leo RN Unavailable [email or web address] Jaylen Oshea MD Unavailable [phone] Denis Gibson Unavailable + [phone] Denis Gibson Primary Care Provid er Denis Gibson Primary Care Provid er Nany Rowland RN Unavailable [email or web address] Encounter Details Date Type Department Care Team (Late st Contact Info) Description 10/02/2017 Procedure Pass [facility], Radiology Department Social History Tobacco Use [...] PM EDT Telemedicine - audio only [facility] at [address] [address] Rajendra Edward MD [address] [place] [phone] Toby [email or web address] [place] 02/17/2025 9:30 AM EST Office Visit [facility] at [address] [address] Rajendra Edward MD [address] [place] [phone] Toby [email or web address] DU documented as of this encounter Visit Diagnoses Not on filedocumented in this encounter Additional Health Concerns Infection Onset Date Last Indicated Resolved Time CoV-Risk 07/06/2022 07/06/2022 07/06/2022 3:45 PM EDT COVID-19 07/06/2022 07/06/2022 07/27/2022 1:21 AM EDT documented as of this encounter Care Teams Junior Accountant Bookkeeper Relationship Specialty Start Date End Date Jaylen Oshea MD [address] [place] [address] PCP - General 04/03/15 12/06/20 Denis Gibson PA [address] [place] [phone] PCP - General 12/07/20 07/28/23 Denis Gibson PA [address] [place] [phone] PCP - General Physician Sales And Production Manager 07/29/23 Rajendra Edward MD [address] [place] [phone] South@ [facility] Primary Oncologist Hematology and Oncology 05/08/15 Park Leo, WANDER [address] [place] [phone] [email or web address] Primary Infusion Nurse 05/08/15 Jaylen Oshea MD [address] [place] [address] [email or web address] Referring Physician 06/01/15 Denis Gibson PA [address] [place] [phone] 01/04/19 Nany Rowland RN [address] [place] [phone] Paty [email or web address] Nurse Navigator 04/26/24 documented as of this encounter Additional Source Comments The information contained in this document represents components of the legal health record. It is not the complete legal health record.[facility]
== END 2024-11-30 09:55 | disposition home or self-care (01) ==
LOC: HO.HOSX 09:54
PROVIDERS: Visit Provider Physician Assistant
DX: S42.302D Unspecified fracture of shaft of humerus, left arm, subsequent encounter for fracture with routine healing (principal); Z76.0 Encounter for issue of repeat prescription; X58.XXXD Exposure to other specified factors, subsequent encounter
CPT/HCPCS: 73060; 99212

== ENCOUNTER 2024-12-24 08:20 | Outpatient (REF) | payer MEDICARE, SELFPAY ==
--- NOTE | ~2024-12-24 | MM_ITS ---
EXAMINATION: DXA BONE DENSITY AXIAL HISTORY: M81.8 - Other osteoporosis without current pathological fracture TECHNIQUE: Quixey Dual energy absorptiometry (DEXA) of the lumbar spine, total right hip, and femoral neck was performed. COMPARISON: Comparison is made with the prior examination dated 11/19/2022. FINDINGS: The bone mineral density of the lumbar spine is 1.692 g/cm2, corresponding to a T-score of 3.9, and a Z-score of 4.2. This is indicative of normal bone mineral density. This represents a BMD change of 16.5% compared to the prior exam. This is statistically significant. The bone mineral density of the right total hip is 0.801 g/cm2, corresponding to a T-score of -2.1, and a Z-score of -1.2. This is indicative of osteopenia. This represents a BMD change of 7.7% compared to the prior exam. This is statistically significant. The bone mineral density of the right femoral neck is 0.805 g/cm2, corresponding to a T-score of -2.0, and a Z-score of -0.8. This is indicative of osteopenia. This represents a BMD change of 3.1% compared to the prior exam. FRACTURE RISK: The FRAX index suggests a ten year probability of major osteoporotic fracture of 17.9%, and of hip fracture 7.4%. MM/XR DEXA axial skeleton IMPRESSION: Based on bone mineral density, and according to World Health Organization (WHO) criteria, the diagnosis is consistent with osteopenia. Statistically, 68% of repeat scans fall within 1 SD (+/- 0.010 g/cm2 for AP spine L1-L4) and 1 SD (+/- 0.012 g/cm2 for femur total) FRAX is a trademark of the [employer] [place] for Metabolic Bone Disease, a World Health Organization (WHO) Collaborating Center. Electronically signed by: Clyde Olivares MD 12/24/2024 09:09 AM EDT
== END 2024-12-24 08:21 | disposition home or self-care (01) ==
LOC: HO.MAMMO 08:20
PROVIDERS: PCP Physician Assistant; Visit Provider Urology
DX: M81.0 Age-related osteoporosis without current pathological fracture (principal); T38.7X5A Adverse effect of androgens and anabolic congeners, initial encounter
CPT/HCPCS: 77080

== ENCOUNTER → 2024-12-24 08:45 | Outpatient (BNV) | payer MEDICARE, SELFPAY | PROVIDERS: PCP Physician Assistant; Visit Provider Radiology Diagnostic Radiology | DX: M81.8 Other osteoporosis without current pathological fracture (principal) | CPT/HCPCS: 77080 ==

== ENCOUNTER 2025-01-11 08:52 | Outpatient (REF) | payer MEDICARE, SELFPAY ==
--- NOTE | ~2025-01-11 | XR_ITS ---
EXAMINATION: XR HUMERUS, LEFT CLINICAL INFORMATION: S42.302A - Unspecified fracture of shaft of humerus, left arm, initial e... COMPARISON: Previous x-rays most recent November 2024 TECHNIQUE: AP and lateral views of the left humerus. FINDINGS: There is interval healing of the transverse fracture of the mid left humeral shaft with increasing bony callus formation and periosteal reaction. Fracture line still seen but appears appears more indistinct. Unchanged alignment with slight lateral displacement of the distal shaft with respect to the more proximal shaft measuring 6 mm. Normal-appearing left shoulder and elbow joints. Soft tissues are unremarkable. Overlying external brace. XR/XR humerus LT IMPRESSION: Interval healing of the left mid humeral shaft fracture with increased bony callus formation and periosteal reaction. Electronically signed by: Malia Telles MD 01/11/2025 03:15 PM EDT
== END 2025-01-11 08:53 | disposition home or self-care (01) ==
LOC: HO.HOSX 08:52
PROVIDERS: Visit Provider Physician Assistant
DX: S42.302D Unspecified fracture of shaft of humerus, left arm, subsequent encounter for fracture with routine healing (principal); X58.XXXD Exposure to other specified factors, subsequent encounter
CPT/HCPCS: 73060; 99212

== ENCOUNTER 2025-01-11 14:46 | Outpatient (AMB) | payer OTHER, MEDICARE, SELFPAY ==
--- OUTSIDE RECORDS SUMMARY | 2015-04-12 09:26 | XMS_ITS | Encounter Summary ---
Author Organization [facility] Address [address] [place] [address] Phone Care Team Providers Care Magnetic Healer Name Role Phone Jaylen Oshea MD Primary Care Provider Encounter Details Date Type Department Care Team (Late st Contact Info) Description 04/12/2015 8:26 AM EST Hospital Encounter [facility], Radiology Department Unknown, Unknown, Social History Tobacco [...] 4:32 AM EDT Miriam Rivas RN * [place] Suicide Severity Rating Scale (Screener/Recent Self-Report) Question [...] Care Team (Late st Contact Info) Description 01/13/2025 1:00 PM EDT Appointment [facility], Radiology Department Rajendra Edward MD [address] [place] [phone] South@ [email or web address] 01/20/2025 2:00 PM EST Office Visit [facility] at [address] [place] [address] Rajendra Edward MD [address] [place] [phone] South@ [facility] 02/17/2025 9:30 AM EST Office Visit [facility] at [facility] [address] [address] Rajendra Edward MD 20 [place] [phone] South@ [facility] Scheduled Orders Name Type Priority Associated [...] documented as of this encounter Care Teams Magnetic Healer Relationship Specialty Start Date End Date Jaylen Oshea MD [address] [place] [phone] [email or web address] PCP - General 04/03/15 12/06/20 documented as of this encounter Additional Source Comments The information contained in this document represents components of the legal health record. It is not the complete legal health record.[facility]
--- OUTSIDE RECORDS SUMMARY | 2015-09-13 12:00 | XMS_ITS | Encounter Summary ---
Author Organization [facility] Address [address] [place] [address] Phone Care Team Providers Care Commercial Construction Superintendent Name Role Phone Jaylen Oshea MD Primary Care Provider [phone] Rajendra Edward MD Unavailable Park Leo RN Unavailable [email or web address] Jaylen Oshea MD Unavailable [phone] Encounter Details Date Type Department Care Team (Late st Contact Info) Description 09/13/2015 12:00 PM EDT Hospital Encounter [facility], Radiology Department Unknown, Unknown, Social History [...] 4:32 AM EDT Miriam Rivas RN * [place] Suicide Severity Rating Scale (Screener/Recent Self-Report) Question [...] Info) Description 01/13/2025 1:00 PM EDT Appointment [facility], Radiology Department Rajendra Edward MD [address] [place] [phone] South@ [email or web address] 01/20/2025 2:00 PM EST [facility] [address] [address] Rajendra Edward MD [address] [place] [phone] South@ [facility] 02/17/2025 9:30 AM EST Office Visit [facility] at [address] [address] Rajendra Edward MD [address] [place] [phone] South@ [facility] Scheduled Orders Name Type Priority Associated [...] documented as of this encounter Care Teams Commercial Construction Superintendent Relationship Specialty Start Date End Date Jaylen Oshea MD [address] [place] [address] PCP - General 04/03/15 12/06/20 Rajendra Edward MD [address] [place] [phone] South@ [facility] Primary Oncologist Hematology and Oncology 05/08/15 Park Leo, RN [address] [place] [phone] [email or web address] Primary Infusion Nurse 05/08/15 Jaylen Oshea MD [address] [place] [phone] [email or web address] Referring Physician 06/01/15 documented as of this encounter Additional Source Comments The information contained in this document represents components of the legal health record. It is not the complete legal health record.[facility]
--- OUTSIDE RECORDS SUMMARY | 2015-09-13 13:20 | XMS_ITS | Encounter Summary ---
Author Organization [facility] Address [address] [facility] [address] [place] [address] Phone Care Team Providers Care Portable Power Tool Repairer Name Role Phone Jaylen Oshea MD Primary Care Provider Rajendra Edward MD Unavailable Park Leo RN Unavailable [email or web address] Jaylen Oshea MD Unavailable [phone] Encounter Details Date Type Department Care Team (Late st Contact Info) Description 09/13/2015 1:20 PM EDT Hospital Encounter [facility], Radiology Department Unknown, Unknown, MD Social [...] 4:32 AM EDT Miriam Rivas RN * [place] Suicide Severity Rating Scale (Screener/Recent Self-Report) Question [...] Info) Description 01/13/2025 1:00 PM EDT Appointment [facility], Radiology Department Rajendra Edward MD [address] [place] [phone] South@ [email or web address] 01/20/2025 2:00 PM EST [facility] [address] [address] Rajendra Edward MD [address] [place] [phone] South@ [facility] 02/17/2025 9:30 AM EST Office Visit [facility] at [address] [address] Rajendra Edward MD [address] [place] [phone] South@ [facility] Scheduled Orders Name Type Priority [...] documented as of this encounter Care Teams Portable Power Tool Repairer Relationship Specialty Start Date End Date Jaylen Oshea MD [address] [place] [address] PCP - General 04/03/15 12/06/20 Rajendra Edward MD [address] [place] [phone] South@ [facility] Primary Oncologist Hematology and Oncology 05/08/15 Park Leo RN [address] [place] [phone] [email or web address]@[email or web address] Primary Infusion Nurse 05/08/15 Jaylen Oshea MD [address] [place] [address] [email or web address] Referring Physician 06/01/15 documented as of this encounter Additional Source Comments The information contained in this document represents components of the legal health record. It is not the complete legal health record.[facility]
--- OUTSIDE RECORDS SUMMARY | 2018-01-13 13:00 | XMS_ITS | Encounter Summary ---
Author Organization [facility] Address [address] [facility] [address] [place] [address] Phone Care Team Providers Care Biological Science Aide Name Role Phone Jaylen Oshea MD Primary Care Provider + [phone] Rajendra Edward MD Unavailable [phone] Park Leo RN Unavailable [email or web address] Jaylen Oshea MD Unavailable [phone] Reason for Referral * MRI/CAT Scan - Closed Specialty Diagnoses / Procedures Referred By Jase dow Referred To Contact Radiology Diagnoses Prostate cancer metastatic to multiple sites Procedures CT Abdomen/Pelvis CT CHEST Rajendra Edward MD Phone: tel: fax: mailto:South @[facility] Referral ID Status Reason Start Date Expiration Date Visits Re quested Visits Authorized [id number] Closed 10/02/2017 10/02/2018 1 1 * MRI/CAT Scan - Closed Specialty Diagnoses / Procedures Referred By Jase dow Referred To Contact Radiology Diagnoses Prostate cancer metastatic to multiple sites Procedures CT Chest CT ABDOMEN/PELVIS Rajendra Edward MD Phone: tel: fax: mailto:South @[facility] Referral ID Status Reason Start Date Expiration Date Visits Re quested Visits Authorized [id number] Closed 10/02/2017 02/13/2018 1 1 Reason for Visit * MRI/CAT Scan - Closed Specialty Diagnoses / Procedures Referred By Jase dow Referred To Contact Radiology Diagnoses Prostate cancer metastatic to multiple sites Procedures CT Chest CT ABDOMEN/PELVIS Rajendra Edward MD Phone: tel: fax: mailto:South @[facility] Referral ID Status Reason Start Date Expiration Date Visits Re quested Visits Authorized [id number] Closed 10/02/2017 02/13/2018 1 1 Encounter Details Date Type Department Care Team (Late st Contact Info) Description 01/13/2018 1:00 PM EDT Hospital Encounter [facility], Radiology Department Rajendra Edward MD [address] [place] [phone] Jessenia [email or web address] Social History Tobacco Use Types Packs/Day Years [...] 4:32 AM EDT Miriam Rivas RN * [place] Suicide Severity Rating Scale (Screener/Recent Self-Report) Question [...] Info) Description 01/13/2025 1:00 PM EDT Appointment [facility], Radiology Department Rajendra Edward MD [address] [place] [phone] South@ [email or web address] 01/20/2025 2:00 PM EST Office Visit [facility] at [address] [address] Rajendra Edward MD [address] [place] [phone] South@ [facility] 02/17/2025 9:30 AM EST Office Visit [facility] at [facility] [address] [address] Rajendra Edward MD 20 [place] [phone] South@ [facility] Scheduled Orders Name Type Priority Associated [...] documented as of this encounter Care Teams Biological Science Aide Relationship Specialty Start Date End Date Jaylen Oshea MD [address] [place] [address] PCP - General 04/03/15 12/06/20 Rajendra Edward MD [address] [place] [phone] South@ [facility] Primary Oncologist Hematology and Oncology 05/08/15 Park Leo, RN [address] [place] [phone] MAYRA@[facility] Primary Infusion Nurse 05/08/15 Jaylen Oshea MD [address] [place] [address] Referring Physician 06/01/15 documented as of this encounter Additional Source Comments The information contained in this document represents components of the legal health record. It is not the complete legal health record.[facility]
--- NOTE | 2025-01-11 15:16 | A.OFFVIS_ITS ---
Intake Visit Reasons: OV - left humerus fx, DOI 10/29/24-w/xray Intake Note: Candelario is a 79 year old right hand dominant male who presents today with a sling for a follow up appointment for his left humerus fracture, DOI 10/29/24. Patient reports is doing well. He is wondering when he doesn't have to wear his brace. Allergies bicalutamide Allergy (Mild, Verified 01/11/25 15:17) Unknown Iodinated Contrast Media Allergy (Mild, Verified 01/11/25 15:17) Unknown HPI HPI OV - left humerus fx, DOI 10/29/24-w/xray: Details: Mr. Brock is an 79-year-old male who presents to the office today accompanied by his for routine follow up of a left humeral shaft fracture. Date of injury was 10/29/2024. Patient has been wearing the thermal molded humerus brace as appropriate and attending physical therapy working on gentle range of motion. Pain is well managed. No additional complaints. [facility] Medical History Weak urinary stream Nocturia Metastatic malignant neoplasm to prostate Microscopic hematuria Social History Alcohol intake: never Patient Tobacco Use Status: Never used Tobacco Current occupational status: retired Current occupation: right hand dominant Review of Systems Const All systems reviewed & are unremarkable except as noted in HPI and below Physical Exam Const General: cooperative, healthy appearing and no acute distress Resp Effort & Inspection: normal respiratory effort and able to speak in complete sentences Extrem Other: Left upper extremity full elbow flexion and extension. Able to reach the side of his head. Able to reach greater troch. NVI. Psych Appearance: grossly normal Mental Status: mental status grossly normal Attitude: cooperative Assessment & Plan Assessment & Plan (1) Left humeral fracture: Code(s): S42.302A - Unspecified fracture of shaft of humerus, left arm, initial encounter for closed fracture Category: Medical Plan Mr. Brock is an 79-year-old male who presents to the office today accompanied by his for routine follow up of a left humeral shaft fracture. Date of injury was 10/29/2024. Patient has been wearing the thermal molded humerus brace as appropriate and attending physical therapy working on gentle range of motion. Pain is well managed. No additional complaints. While in the office today, I have recommended the discontinuation of the thermal molded humerus brace and sling. He will continue working with physical therapy on range of motion and may progress to gentle strengthening at the three-month agapito. I recommended nonweightbearing until 3 months from the date of injury on the left upper extremity. He will follow up in 6 weeks with repeat x-rays, sooner if needed. X-rays of the left humeral which were obtained while in the office today and were reviewed by me, Tessa Alexander PA-C, revealed routine healing left humeral shaft fracture. Orders: Orders XR humerus LT Today S42.302A - Unspecified fracture of shaft of humerus, left arm, initial encounter for closed fracture Coding Level of Care Code Global (54413) Diagnoses Left humeral fracture S42.302A
--- OUTSIDE RECORDS SUMMARY | 2025-01-11 19:12 | XMS_ITS | Encounter Summary ---
Author Organization Formerly [facility] Address [address] [facility] [address] [place] [address] Phone Care Team Providers Care Merchandise Presentation Manager Name Role Phone Rajendra Edward MD Unavailable Park Leo RN Unavailable [email or web address] Jaylen Oshea MD Unavailable Denis Gibson Unavailable [phone] Denis Gibson Primary Care Provid er Denis Gibson Primary Care [facility] er Nayn Rowland RN Unavailable [email or web address] Encounter Details Date Type Department Care Team (Late st Contact Info) Description 09/02/2022 Procedure Pass OR Admitting Dept - Virtual Department [address] [place] [address] Social History Tobacco Use Types Packs/Day Years [...] Info) Description 01/13/2025 1:00 PM EDT Appointment [facility], Radiology Department Rajendra Edward MD [address] [place] [phone] South@ [facility] 01/20/2025 2:00 PM EST Office Visit [facility] and [facility] at [address] [address] Rajendra Edward MD [address] [place] [phone] South@ [facility] 02/17/2025 9:30 AM EST Office Visit [facility] and [facility] at [address] [address] Rajendra Edward MD [address] [place] [phone] South@ [facility] documented as of this encounter Visit Diagnoses Not on filedocumented in this encounter Care Teams Merchandise Presentation Manager Relationship Specialty Start Date End Date Denis Gibson PA [address] [place] [address] PCP - General 12/07/20 07/28/23 Denis Gibson PA [address] [place] [address] PCP - General Physician Agency Sales Management Assistant 07/29/23 Rajendra Edward MD [address] [place] [phone] South@ [facility] Primary Oncologist Hematology and Oncology 05/08/15 Park Leo, WANDER [address] [place] [phone] MAYRA@[email or web address] Primary Infusion Nurse 05/08/15 Jaylen Oshea MD [address] [place] [address] [email or web address] Referring Physician 06/01/15 Denis Gibson PA [address] [place] [address] 01/04/19 Nany Rowland RN [address] [place] [address] Paty [email or web address] Nurse Navigator 04/26/24 documented as of this encounter Additional Source Comments The information contained in this document represents components of the legal health record. It is not the complete legal health record.[facility]
--- OUTSIDE RECORDS SUMMARY | 2025-01-11 19:12 | XMS_ITS | Encounter Summary ---
Author Organization [facility] Address [address] [facility] [address] [place] [address] Phone Care Team Providers Care Confectionery Cooker Name Role Phone Rajendra Edward MD Unavailable [phone] Park Leo RN Unavailable [email or web address] Jaylen Oshea MD Unavailable [phone] Denis Gibson Unavailable [phone] Denis Gibson Primary Care Provid er Nany Rowland RN Unavailable [email or web address] Encounter Details Date Type Department Care Team (Late st Contact Info) Description 12/08/2023 Transcribe Orders [facility] Laboratory [address] [address] Rajendra Edward MD 20 [place] [address] Toby [email or web address] Screening for prostate cancer (Primary Dx) [...] Description 01/13/2025 1:00 PM EDT Appointment [facility], Radiology Department Rajendra Edward MD [address] [place] [phone] (work) South@ [email or web address] 01/20/2025 2:00 PM EST Office Visit [facility] at [address] [place] [address] Rajendra Edward MD 20 [place] [address] South@ [facility] 02/17/2025 9:30 AM EST Office Visit [facility] at [facility] [address] [address] Rajendra Edward MD 20 [place] [phone] South@ [facility] documented as of this encounter Results * PSA (screening) (12/08/2023 10:15 AM EDT) PSA 0.49 0 - 4.00 ng/mL [facility] Comment: Test Methodology Una e801 Patient results determined by assays using different manufacturers or methods may not be comparable. Blood 12/08/2023 10:1 5 AM EDT 12/08/2023 10:32 AM EDT us Rajendra Edward MD LAB BLOOD ORDERABLES Hali l Result [address] [address] documented in this encounter Visit Diagnoses Diagnosis Screening for prostate cancer- Primary Special screening for malignant neoplasm of prostate documented in this encounter Care Teams Confectionery Cooker Relationship Specialty Start Date End Date Denis Gibson PA [address] [place] [address] PCP - General Physician Social Services Counselor 07/29/23 Rajendra Edward MD [address] [place] [phone] South@ [facility] Primary Oncologist Hematology and Oncology 05/08/15 Park Leo RN [address] [place] [phone] [email or web address] Primary Infusion Nurse 05/08/15 Jaylen Oshea MD [address] [place] [address] [email or web address] Referring Physician 06/01/15 Denis Gibson PA [address] [place] [address] 01/04/19 Nany Rowland, RN [address] [place] [address] Paty [email or web address] Nurse Navigator 04/26/24 documented as of this encounter Additional Source Comments The information contained in this document represents components of the legal health record. It is not the complete legal health record.[facility]
--- OUTSIDE RECORDS SUMMARY | 2025-01-11 19:12 | XMS_ITS ---
Author Organization [facility] Address [address] [facility] [address] [place] [address] Phone Care Team Providers Care Chief Construction Inspector Name Role Phone Rajendra Edward MD Unavailable Park Leo RN Unavailable [email or web address] Jaylen Oshea MD Unavailable Denis Lopez Unavailable [phone] Denis Lopez Primary Care Provid er Nany Rowland RN Unavailable [email or web address] Active Problems Patient Care Coordination No te Formatting of this note migh t be different from the original. 04/26/2024 [facility] Problem Noted Date Diagnosed Date Hx [...] 07, 2020 Entered By: DENIS LOPEZ Comment: [employer] Product ICM model M301 serial [id number] may,. Bradycardia 01/04/2022 Prostate cancer metastatic to multiple sites Assessment & Plan (09/01/2022 4:12 PM EDT): Follows very closely and consistently with Dr Edward at [facility]. History of prostate cancer with [...]
--- OUTSIDE RECORDS SUMMARY | 2025-01-11 19:12 | XMS_ITS | Encounter Summary ---
Author Organization [facility] Address [address] [facility] [address] [place] [address] Phone Care Team Providers Care Waterproofing Supervisor Name Role Phone Rajendra Edward MD Unavailable Park Leo RN Unavailable [email or web address] Jaylen Oshea MD Unavailable [phone] Denis Gibson Unavailable [phone] Denis Gibson Primary Care Provid er Nany Rowland RN Unavailable [email or web address] Encounter Details Date Type Department Care Team (Late st Contact Info) Description 12/04/2023 Transcribe Orders [facility] Laboratory [address] [address] Rajendra Edward MD 20 [place] [address] Toby [email or web address]. [facility] Prostate cancer metastatic to multiple sites [...] Info) Description 01/13/2025 1:00 PM EDT Appointment [facility], Radiology Department Rajendra Edward MD [address] [place] [phone] (work) South@ [email or web address] 01/20/2025 2:00 PM EST Office Visit [facility] at [address] [place] [address] Rajendra Edward MD [address] [place] [phone] South@ [facility] 02/17/2025 9:30 AM EST Office Visit [facility] at [address] [address] Rajendra Edward MD [address] [place] [phone] South@ [facility] documented as of this encounter Visit Diagnoses Diagnosis Prostate cancer metastatic to multiple sites- Primary documented in this encounter Care Teams Waterproofing Supervisor Relationship Specialty Start Date End Date Denis Gibson PA [facility] [place] [address] PCP - General Physician Wood Tool Maker 07/29/23 Rajendra Edward MD [address] [place] [phone] South@ [facility] Primary Oncologist Hematology and Oncology 05/08/15 Park Leo RN [address] [place] [phone] [email or web address] Primary Infusion Nurse 05/08/15 Jaylen Oshea MD [address] [place] [address] Referring Physician 06/01/15 Denis Gibson PA [address] [place] [address] 01/04/19 Nany Rowland, WANDER [address] [place] [address] Paty [email or web address] Nurse Navigator 04/26/24 documented as of this encounter Additional Source Comments The information contained in this document represents components of the legal health record. It is not the complete legal health record.[facility]
--- OUTSIDE RECORDS SUMMARY | 2025-01-11 19:12 | XMS_ITS | Encounter Summary ---
Author Organization [facility] Address [address] [facility] [address] [place] [address] Phone Care Team Providers Care Manager Statistical Programming Name Role Phone Rajendra Edward MD Unavailable Park Leo RN Unavailable [email or web address] Jaylen Oshea MD Unavailable [phone] Denis Gibson Unavailable [phone] Denis Gibson Primary Care Provid er Nany Rowland RN Unavailable [email or web address] Encounter Details Date Type Department Care Team (Late st Contact Info) Description 11/10/2024 Transcribe Orders [facility] Laboratory [address] [address] Rajendra Edward MD [address] [place] [address] Toby [email or web address] Screening for prostate cancer (Primary Dx); [...] Info) Description 01/13/2025 1:00 PM EDT Appointment [facility], Radiology Department Rajendra Edward MD [address] [place] [phone] (work) South@ [email or web address] 01/20/2025 2:00 PM EST Office Visit [facility] at [address] [place] [address] Rajendra Edward MD [address] [place] [phone] South@ [facility] 02/17/2025 9:30 AM EST Office Visit [facility] at [facility] 20 [facility] 2nd [place] [address] Rajendra Edward MD [address] [place] [phone] South@ [facility] documented as of this encounter Results * (ABNORMAL) CBC and differential (11/10/2024 10:56 AM EDT) WBC 5.87 4.00 - 11.00 K/uL [facility] RBC 4.63 4.50 - 5.90 M/uL [facility] HGB 13.4(L) 13.5 - 17.5 g/dL [facility] HCT 40.7(L) 41.0 - 53.0 % [facility] PLT 264 150 - 450 K/uL [facility] MCV 87.9 80.0 - 100.[address] [facility] MCH 28.9 27.0 - 31.[address] [facility] MCHC 32.9 32.0 - 36.0 g/dL [facility] RDW 14.4 11.5 - 14.5 % [facility] MPV 11.9 8.4 - 12.[address] [facility] NRBC 0.00 0.00 /[address] [facility] ABSOLUTE NRBC 0.00 0.00 K/uL [facility] DIFF METHOD Auto [facility] NEUTS 61.0 48.0 - 76.0 % [facility] LYMPHS 24.0 18.0 - 41.0 % [facility] MONOS 12.6(H) 4.0 - 11.0 % [facility] EOS 1.4 0.0 - 5.0 % [facility] BASOS 0.7 0.0 - 1.5 % [facility] Granulocytes, immature (%) 0.3 0.0 - 0.9 % [facility] ABSOLUTE NEUTS 3.58 1.92 - 7.60 K/uL [facility] ABSOLUTE LYMPHS 1.41 0.72 - 4.10 K/uL [facility] ABSOLUTE MONOS 0.74 0.16 - 1.10 K/uL [facility] ABSOLUTE EOS 0.08 0.00 - 0.50 K/uL [facility] ABSOLUTE BASOS 0.04 0.00 - 0.15 K/uL [facility] Granulocytes, immature 0.02 0.00 - 0.09 K/uL [facility] Blood 11/10/2024 10:5 6 AM EDT 11/10/2024 11:02 AM EDT us Rajendra Edward MD LAB BLOOD ORDERABLES Hali suarez Result [address] [address] * (ABNORMAL) Comprehensive metabolic panel (11/10/2024 10:56 AM EDT) SODIUM 135 133 - 146 mmol/L [facility] POTASSIUM 5.0 3.3 - 5.1 mmol/L [facility] CHLORIDE 99 96 - 108 mmol/L [facility] CO2 25 21 - 35 mmol/L [facility] BUN 21(H) 6 - 19 mg/dL [facility] CREATININE 0.90 0.5 - 1.5 mg/dL [facility] GLUCOSE 102(H) 70 - 99 mg/dL [facility] ALBUMIN 4.1 3.9 - 4.8 g/dL [facility] TOTAL PROTEIN 7.5 6.5 - 8.0 g/dL [facility] CALCIUM 9.6 8.4 - 10.3 mg/dL [facility] ALKALINE PHOSPHATASE 161(H) 39 - 117 U/L [facility] TOTAL BILIRUBIN 0.4 0.0 - 1.2 mg/dL [facility] AST 19 0 - 37 U/L [facility] ALT 32 0 - 40 U/L [facility] GLOBULIN 3.4 1 - 4.8 g/dL [facility] EGFR 86 >59 mL/min/1.7 3m2 [facility] Comment:Estimated glomerular filtration rate calculated using the CKD-EPI refit equation. ANION GAP 16 10 - 20 mmol/L [facility] Blood 11/10/2024 10:5 6 AM EDT 11/10/2024 11:02 AM EDT us Rajendra Edward MD LAB BLOOD ORDERABLES Hali l Result Performing Organization Address City/[facility]/ZIP Co de Phone Number [address] [address] * (ABNORMAL) Testosterone, total (11/10/2024 10:56 AM EDT) TESTOSTERONE 11(L) 249 - 836 ng/dL [facility] Blood 11/10/2024 10:5 6 AM EDT 11/10/2024 11:02 AM EDT Rajendra Edward MD LAB BLOOD ORDERABLES Hali l Result Performing Organization Address [facility] Co de Phone Number [address] [address] * (ABNORMAL) PSA (screening) (11/10/2024 10:56 AM EDT) PSA 5.46(H) 0 - 4.00 ng/mL [facility] Comment: Test Methodology Una e801 Patient results determined by assays using different manufacturers or methods may not be comparable. Blood 11/10/2024 10:5 6 AM EDT 11/10/2024 11:02 AM EDT Rajendra Edward MD LAB BLOOD ORDERABLES Hali l Result Performing Organization Address City/[facility]/ZIP Co de Phone Number [address] [address] documented in this encounter Visit Diagnoses Diagnosis Screening for prostate cancer- Primary Special screening for malignant neoplasm of prostate Prostate cancer metastatic to multiple sites documented in this encounter Care Teams Manager Statistical Programming Relationship Specialty Start Date End Date Denis Gibson PA [address] [place] [phone] PCP - General Physician Celluloid Trimmer 07/29/23 Rajendra Edward MD [address] [place] [phone] South@ [facility] Primary Oncologist Hematology and Oncology 05/08/15 Park Leo, WANDER [address] [place] [phone] MAYRA@[facility] Primary Infusion Nurse 05/08/15 Jaylen Oshea MD [address] [place] [address] [email or web address] Referring Physician 06/01/15 Denis Gibson PA [address] [place] [address] 01/04/19 Nany Rowland RN [address] [place] [address] Paty [email or web address] Nurse Navigator 04/26/24 documented as of this encounter Additional Source Comments The information contained in this document represents components of the legal health record. It is not the complete legal health record.[facility]
--- OUTSIDE RECORDS SUMMARY | 2025-01-11 19:13 | XMS_ITS | Encounter Summary ---
Author Organization [facility] Address [address] [facility] [address] [place] [address] Phone Care Team Providers Care Private Chef Name Role Phone Rajendra Edward MD Unavailable Park Leo RN Unavailable [email or web address] Jaylen Oshea MD Unavailable [phone] Denis Gibson Unavailable [phone] Denis Gibson Primary Care [facility] er Denis Gibson Primary Care [facility] er Nany Rowland RN Unavailable [email or web address] Reason for Referral * MRI/CAT Scan - Closed Specialty Diagnoses / Procedures Referred By Jase dow Referred To Contact Radiology Diagnoses Cervicalgia Procedures MRI Cervical Spine Denis Gibson PA [address] [place] [address] Phone: tel: fax: Referral ID Status Reason Start Date Expiration Date Visits Re quested Visits Authorized [id number] Closed 01/23/2022 04/17/2022 1 1 Encounter Details Date Type Department Care Team (Latest Contact Info) Description 01/23/2022 Transcribe Orders Virtual Department [address] [place] [address] Denis Gibson PA [address] [place] [address] Cervicalgia (Primary Dx) Social History Tobacco Use [...] Info) Description 01/13/2025 1:00 PM EDT Appointment [facility], Radiology Department Rajendra Edward MD [address] [place] [phone] South@ [facility] 01/20/2025 2:00 PM EST Office Visit [facility] at [address] [address] Rajendra Edward MD [address] [place] [phone] South@ [facility] 02/17/2025 9:30 AM EST Office Visit [facility] at [address] [address] Rajendra Edward MD [address] [place] [phone] South@ [facility] documented as of this encounter [...] canal stenosis or focal cord signalabnormality. Denis CHAVEZ MR XSPECIALTY Fi nal Result documented in this encounter Visit Diagnoses Diagnosis Cervicalgia- Primary Cervicalgia documented in this encounter Additional Health Concerns Infection Onset Date Last Indicated Resolved Time CoV-Risk 07/06/2022 07/06/2022 07/06/2022 3:45 PM EDT COVID-19 07/06/2022 07/06/2022 07/27/2022 1:21 AM EDT documented as of this encounter Care Teams Private Chef Relationship Specialty Start Date End Date Denis Gibson PA [address] [place] [address] PCP - General 12/07/20 07/28/23 Denis Gibson PA [address] [place] [address] PCP - General Physician Sustainability Coordinator 07/29/23 Rajendra Edward MD [address] [place] [phone] South@ [facility] Primary Oncologist Hematology and Oncology 05/08/15 Park Leo, WANDER [address] [place] [phone] MAYRA@[facility] Primary Infusion Nurse 05/08/15 Jaylen Oshea MD [address] [place] [address] [email or web address] Referring Physician 06/01/15 Denis Gibson PA [address] [place] [address] 01/04/19 Nany Rowland RN [address] [place] [address] Paty [email or web address] Nurse Navigator 04/26/24 documented as of this encounter Additional Source Comments The information contained in this document represents components of the legal health record. It is not the complete legal health record.[facility]
--- OUTSIDE RECORDS SUMMARY | 2025-01-11 19:13 | XMS_ITS | Encounter Summary ---
Author Organization [facility] Address [address] [facility] [address] [place] [address] Phone Care Team Providers Care Window Dresser Name Role Phone Jaylen Oshea MD Primary Care Provider Rajendra Edward MD Unavailable Park Leo RN Unavailable [email or web address] Jaylen Oshea MD Unavailable Denis Gibson Unavailable Denis Gibson Primary Care Provid er Denis Gibson Primary Care Provid er Nany Rowland RN Unavailable [email or web address] Encounter Details Date Type Department Care Team (Late st Contact Info) Description 10/02/2017 Procedure Pass [facility], Radiology Department Social History Tobacco Use [...] Info) Description 01/13/2025 1:00 PM EDT Appointment [facility], Radiology Department Rajendra Edward MD [address] [place] [phone] South@ [facility] 01/20/2025 2:00 PM EST Office Visit [facility] at [address] [address] Rajendra Edward MD [address] [place] [phone] South@ [facility] 02/17/2025 9:30 AM EST Office Visit [facility] at [address] [address] Rajendra Edward MD [address] [place] [phone] South@ [facility] documented as of this encounter Visit Diagnoses Not on filedocumented in this encounter Additional Health Concerns Infection Onset Date Last Indicated Resolved Time CoV-Risk 07/06/2022 07/06/2022 07/06/2022 3:45 PM EDT COVID-19 07/06/2022 07/06/2022 07/27/2022 1:21 AM EDT documented as of this encounter Care Teams Window Dresser Relationship Specialty Start Date End Date Jaylen Oshea MD [address] [place] [address] PCP - General 04/03/15 12/06/20 Denis Gibson PA [address] [place] [phone] PCP - General 12/07/20 07/28/23 Denis Gibson PA [address] [place] [address] PCP - General Physician Glassware Defect Repairer 07/29/23 Rajendra Edward MD [address] [place] [phone] South@ [facility] Primary Oncologist Hematology and Oncology 05/08/15 aPrk Leo, WANDER [address] [place] [phone] [email or web address] Primary Infusion Nurse 05/08/15 Jaylen Oshea MD [facility] [place] [address] [email or web address] Referring Physician 06/01/15 Denis Gibson PA [address] [place] [phone] 01/04/19 Nany Rowland RN [address] [place] [address] Paty [email or web address] Nurse Navigator 04/26/24 documented as of this encounter Additional Source Comments The information contained in this document represents components of the legal health record. It is not the complete legal health record.[facility]
--- OUTSIDE RECORDS SUMMARY | 2025-01-11 19:13 | XMS_ITS | Encounter Summary ---
Author Organization [facility] Address [address] [facility] [address] [place] [address] Phone Care Team Providers Care Rn Social Services Name Role Phone Rajendra Edward MD Unavailable Park Leo RN Unavailable [email or web address] Jaylen Oshea MD Unavailable Denis Gibson Unavailable [phone] Denis Gibson Primary Care Provid er Denis Gibson Primary Care Provid er Nany Rowland RN Unavailable [email or web address] Encounter Details Date Type Department Care Team (Late st Contact Info) Description 08/30/2022 Procedure Pass [facility], Ct Scan - [facility] [address] [place] [address] Social History Tobacco Use Types Packs/Day Years [...] 4:32 AM EDT Miriam Rivas RN * [place] Suicide Severity Rating Scale (Screener/Recent Self-Report) Question [...] Info) Description 01/13/2025 1:00 PM EDT Appointment [facility], Radiology Department Rajendra Edward MD [address] [place] [phone] South@ [facility] 01/20/2025 2:00 PM EST Office Visit [facility] at [address] [address] Rajendra Edward MD [address] [place] [phone] South@ [facility] 02/17/2025 9:30 AM EST Office Visit [facility] at [address] [address] Rajendra Edward MD [address] [place] [phone] South@ [facility] documented as of this encounter Visit Diagnoses Not on filedocumented in this encounter Care Teams Rn Social Services Relationship Specialty Start Date End Date Denis Gibson PA [address] [place] [address] PCP - General 12/07/20 07/28/23 Denis Gibson PA [address] [place] [phone] PCP - General Physician Insurance Risk Analyst 07/29/23 Rajendra Edward MD [address] [place] [phone] South@ [facility] Primary Oncologist Hematology and Oncology 05/08/15 Park Leo RN [address] [place] [phone] MAYRA@[email or web address] Primary Infusion Nurse 05/08/15 Jaylen Oshea MD [address] [place] [address] [email or web address] Referring Physician 06/01/15 Denis Gibson PA [address] [place] [address] 01/04/19 Nany Rowland RN [address] [place] [address] Paty [email or web address]@[email or web address] Nurse Navigator 04/26/24 documented as of this encounter Additional Source Comments The information contained in this document represents components of the legal health record. It is not the complete legal health record.[facility]
--- OUTSIDE RECORDS SUMMARY | 2025-01-11 19:13 | XMS_ITS | Encounter Summary ---
Author Organization [facility] Address [address] [facility] [address] [place] [address] Phone Care Team Providers Care Research Statistician Name Role Phone Rajendra Edward MD Unavailable Park Leo RN Unavailable [email or web address] Jaylen Oshea MD Unavailable Denis Gibson Unavailable [phone] Denis Gibson Primary Care Provid er Denis Gibson Primary Care [facility] er Nany Rowland RN Unavailable [email or web address] Encounter Details Date Type Department Care Team (Late st Contact Info) Description 07/18/2023 Procedure Pass [facility], [facility] - [address] [place] [address] Social History Tobacco Use Types Packs/Day Years [...] Info) Description 01/13/2025 1:00 PM EDT Appointment [facility], Radiology Department Rajendra Edward MD [address] [place] [phone] South@ [facility] 01/20/2025 2:00 PM EST Office Visit [facility] at [address] [address] Rajendra Edward MD [address] [place] [phone] South@ [facility] 02/17/2025 9:30 AM EST Office Visit [facility] at [facility] [address] [phone] Rajendra Edward MD [address] [place] [phone] South@ [facility] documented as of this encounter Visit Diagnoses Not on filedocumented in this encounter Care Teams Research Statistician Relationship Specialty Start Date End Date Denis Gibson PA [address] [place] [address] PCP - General 12/07/20 07/28/23 Denis Gibson PA [address] [place] [phone] PCP - General Physician Dynamometer Tester 07/29/23 Rajendra Edward MD [address] [place] [phone] South@ [facility] Primary Oncologist Hematology and Oncology 05/08/15 Park Leo RN [address] [place] [phone] [email or web address] Primary Infusion Nurse 05/08/15 Jaylen Oshea MD [address] [place] [address] Referring Physician 06/01/15 Denis Gibson PA [address] [place] [address] 01/04/19 Nany Rowland RN [address] [place] [address] Paty [email or web address] Nurse Navigator 04/26/24 documented as of this encounter Additional Source Comments The information contained in this document represents components of the legal health record. It is not the complete legal health record.[facility]
--- OUTSIDE RECORDS SUMMARY | 2025-01-11 19:13 | XMS_ITS | Encounter Summary ---
Author Organization [facility] Address [address] [employer] [address] [place] [address] Phone Care Team Providers Care Ground Wirer Name Role Phone Rajendra Edward MD Unavailable Park Leo RN Unavailable [email or web address] Jaylen Oshea MD Unavailable [phone] Denis Gibson Unavailable [phone] Denis Gibson Primary Care Provid er Denis Gibson Primary Care Provid er Nany Rowland RN Unavailable [email or web address] Encounter Details Date Type Department Care Team (Late st Contact Info) Description 07/06/2022 Procedure Pass [facility], Ct Scan - [facility] [address] [place] [address] Social History Tobacco Use Types Packs/Day Years [...] 3:03 PM EDT Khadijah Taylor RN * [place] Suicide Severity Rating Scale (Screener/Recent Self-Report) Question Answer Date of Assessment Author 1. Wish to be (Past 1 Month) No 023 3:03 PM EDT Khadijah Taylor, WANDER 2. Non-Specific Active Suici saul Thoughts (Past 1 Month) No 07/06/2022 3:03 PM EDT Khadijah Taylor , WANDER 6. Suicidal Behavior (Lifetime) No 3:03 PM EDT Khadijah Taylor RN documented as of this encounter Plan of Treatment Upcoming Encounters Date Type Department Care Team (Late st Contact Info) Description 01/13/2025 1:00 PM EDT Appointment [facility], Radiology Department Rajendra Edward MD [address] [place] [phone] South@ [facility] 01/20/2025 2:00 PM EST Office Visit [facility] at [address] [address] Rajendra Edward MD [address] [place] [phone] South@ [facility] 02/17/2025 9:30 AM EST Office Visit [facility] at [address] [address] Rajendra Edward MD [address] [place] [phone] South@ [facility] documented as of this encounter Visit Diagnoses Not on filedocumented in this encounter Additional Health Concerns Infection Onset Date Last Indicated Resolved Time CoV-Risk 07/06/2022 07/06/202207/0607/06/2022 3:45 PM EDT COVID-19 07/06/2022 07/06/2022 07/27/2022 1:21 AM EDT documented as of this encounter Care Teams Ground Wirer Relationship Specialty Start Date End Date Denis Gibson PA [address] [place] [address] PCP - General 12/07/20 07/28/23 Denis Gibson PA [address] [place] [phone] PCP - General Physician Attendance Officer 07/29/23 Rajendra Edward MD [address] [place] [phone] South@ [facility] Primary Oncologist Hematology and Oncology 05/08/15 Park Leo, WANDER [address] [place] [phone] [email or web address] Primary Infusion Nurse 05/08/15 Jaylen Oshea MD [address] [place] [address] [email or web address] Referring Physician 06/01/15 Denis Gibson PA [address] [place] [address] 01/04/19 Nany Rowland, WANDER [address] [place] [phone] Paty [email or web address] Nurse Navigator 04/26/24 documented as of this encounter Additional Source Comments The information contained in this document represents components of the legal health record. It is not the complete legal health record.[facility]
--- OUTSIDE RECORDS SUMMARY | 2025-01-11 19:13 | XMS_ITS | Encounter Summary ---
Author Organization [facility] Address [address] [facility] [address] [place] [address] Phone Care Team Providers Care Conditioning Machine Operator Name Role Phone Rajendra Edward MD Unavailable [phone] Park Leo RN Unavailable [email or web address] Jaylen Oshea MD Unavailable [phone] Denis Gibson Unavailable [phone] Denis Gibson Primary Care Provid er Denis Gibson Primary Care Provid er Nany Rowland RN Unavailable [email or web address] Encounter Details Date Type Department Care Team (Late st Contact Info) Description 01/09/2022 Transcribe Orders [facility] Laboratory [address] [address] Rajendra Edward MD 20 [place] [phone] Toby [email or web address] Screening for prostate cancer Social History [...] Info) Description 01/13/2025 1:00 PM EDT Appointment [facility], Radiology Department Rajendra Edward MD [address] [place] [phone] South@ [facility] 01/20/2025 2:00 PM EST Office Visit [facility] at [address] [address] Rajendra Edward MD [address] [place] [phone] South@ [facility] 02/17/2025 9:30 AM EST Office Visit [facility] at [address] [address] Rajendra Edward MD [address] [place] [phone] South@ [facility] documented as of this encounter Results * PSA (screening) (01/09/2022 10:15 AM EDT) PSA 0.03 0 - 4.00 ng/mL [facility] Blood 01/09/2022 10:1 5 AM EDT 01/09/2022 10:27 AM EDT us Rajendra Edward MD LAB BLOOD ORDERABLES Hali l Result [address] [address] documented in this encounter Visit Diagnoses Diagnosis Screening for prostate cancer Special screening for malignant neoplasm of prostate documented in this encounter Additional Health Concerns Infection Onset Date Last Indicated Resolved Time CoV-Risk 07/06/2022 07/06/2022 07/06/2022 3:45 PM EDT COVID-19 07/06/2022 07/06/2022 07/27/2022 1:21 AM EDT documented as of this encounter Care Teams Conditioning Machine Operator Relationship Specialty Start Date End Date Denis Gibson PA [address] [place] [address] PCP - General 12/07/20 07/28/23 Denis Gibson PA [address] [place] [phone] PCP - General Physician Combat Systems Operator 07/29/23 Rajendra Edward MD [address] [place] [phone] South@ [facility] Primary Oncologist Hematology and Oncology 05/08/15 Park Leo, WANDER [address] [place] [phone] [email or web address] Primary Infusion Nurse 05/08/15 Jaylen Oshea MD [address] [place] [address] [email or web address] Referring Physician 06/01/15 Denis Gibson PA [address] [place] [address] 01/04/19 Nany Rowland, WANDER [address] [place] [phone] Paty [email or web address] Nurse Navigator 04/26/24 documented as of this encounter Additional Source Comments The information contained in this document represents components of the legal health record. It is not the complete legal health record.[facility]
--- OUTSIDE RECORDS SUMMARY | 2025-01-11 19:13 | XMS_ITS | Encounter Summary ---
Author Organization [facility] Address [address] [place] [address] Phone Care Team Providers Care M1 Armor Crewman Name Role Phone Rajendra Edward MD Unavailable Park Leo RN Unavailable [email or web address] Jaylen Oshea MD Unavailable [phone] Denis Gibson Unavailable [phone] Denis Gibson Primary Care Provid er Nany Rowland RN Unavailable [email or web address] Reason for Visit * Reason Onset Date Comments zbigniew pet scan 01/10/2025 Care Coordination 01/10/2025 Encounter Details Date Type Department Care Team (Late st Contact Info) Description 01/10/2025 Telephone [facility] at [address] [address] Leslie Miguel [address] [place] [address] [email or web address]@[facility] zbigniew pet scan; Care Coordination Social History Tobacco Use Types Packs/Day Years [...] on file documented as of this encounter Progress Notes * Nany Rowland RN - 01/10/2025 10:17 AM EDT Patient is due for PET scan on 01/13/2025. Reviewed with PET submarine cable equipment technician De. There are no issues with his history of joint replacement and prostate seeds with PET scan. Called and updated the patient's . I have asked her to call if needed. Patient's verbalized understanding and is in agreement with plan. * Leslie Miguel - 01/10/2025 9:51 AM EDT Patient Interpretive Naturalist Message: Caller Requesting callback? Yes Reason for Call: pet scan Appointment Date: 01-13 Patients called to update office that patient has fake knees and a seed implant. She wants to know if this is okay for his pet scan? documented in this encounter Plan of Treatment Upcoming Encounters Date Type Department Care Team (Late st Contact Info) Description 01/13/2025 1:00 PM EDT Appointment [facility], Radiology Department Rajendra Edward MD [address] [place] [phone] South@ [facility] 01/20/2025 2:00 PM EST Office Visit [facility] at [address] [address] Rajendra Edward MD [address] [place] [phone] South@ [facility] 02/17/2025 9:30 AM EST Office Visit [facility] at [address] [address] Rajendra Edward MD [address] [place] [phone] South@ [facility] documented as of this encounter Visit Diagnoses Not on filedocumented in this encounter Care Teams M1 Armor Crewman Relationship Specialty Start Date End Date Denis Gibson PA [address] [place] [address] PCP - General Physician Watch Hairspring Assembler 07/29/23 Rajendra Edward MD [address] [place] [phone] South@ [facility] Primary Oncologist Hematology and Oncology 05/08/15 Park Leo RN [address] [place] [phone] MAYRA@[facility] Primary Infusion Nurse 05/08/15 Jaylen Oshea MD [address] [place] [address] [email or web address] Referring Physician 06/01/15 Denis Gibson PA [address] [place] [address] 01/04/19 Nany Rowland RN [address] [place] [address] Paty [email or web address] Nurse Navigator 04/26/24 documented as of this encounter Additional Source Comments The information contained in this document represents components of the legal health record. It is not the complete legal health record.[facility]
--- OUTSIDE RECORDS SUMMARY | 2025-01-11 19:13 | XMS_ITS | Encounter Summary ---
Author Organization [facility] Address [address] [facility] [address] [place] [address] Phone Care Team Providers Care Crankshaft Straightener Name Role Phone Rajendra Edward MD Unavailable [phone] Park Leo RN Unavailable [email or web address] Jaylen Oshea MD Unavailable Denis Gibson Unavailable [phone] Denis Gibson Primary Care Provid er Denis Gibson Primary Care Provid er Nany Rowland RN Unavailable [email or web address] Encounter Details Date Type Department Care Team (Late st Contact Info) Description 05/13/2022 Transcribe Orders [facility] Laboratory [address] [address] Rajendra Edward MD [address] [place] [phone] Toby [email or web address] Screening for prostate cancer Social History [...] Info) Description 01/13/2025 1:00 PM EDT Appointment [facility], Radiology Department Rajendra Edward MD [address] [place] [phone] South@ [facility] 01/20/2025 2:00 PM EST Office Visit [facility] at [address] [address] Rajendra Edward MD [address] [place] [phone] South@ [facility] 02/17/2025 9:30 AM EST Office Visit [facility] at [address] [address] Rajendra Edward MD [address] [place] [phone] South@ [facility] documented as of this encounter Results * PSA (screening) (05/13/2022 9:24 AM EST) PSA 0.05 0 - 4.00 ng/mL [facility] Blood 05/13/2022 9:24 AM EST 05/13/2022 9:26 AM EST us Rajendra Edward MD LAB BLOOD ORDERABLES Hali l Result [address] [phone] documented in this encounter Visit Diagnoses Diagnosis Screening for prostate cancer Special screening for malignant neoplasm of prostate documented in this encounter Additional Health Concerns Infection Onset Date Last Indicated Resolved Time CoV-Risk 07/06/2022 07/06/2022 07/06/2022 3:45 PM EDT COVID-19 07/06/2022 07/06/2022 07/27/2022 1:21 AM EDT documented as of this encounter Care Teams Crankshaft Straightener Relationship Specialty Start Date End Date Denis Gibson PA [address] [place] [address] PCP - General 12/07/20 07/28/23 Denis Gibson PA [address] [place] [phone] PCP - General Physician Air Quality Manager 07/29/23 Rajendra Edward MD [address] [place] [phone] South@ [facility] Primary Oncologist Hematology and Oncology 05/08/15 Park Leo, WANDER [address] [place] [phone] [email or web address] Primary Infusion Nurse 05/08/15 Jaylen Oshea MD [address] [place] [address] [email or web address] Referring Physician 06/01/15 Denis Gibson PA [address] [place] [address] 01/04/19 Nany Rowland, WANDER [address] [place] [address] Paty [email or web address] Nurse Navigator 04/26/24 documented as of this encounter Additional Source Comments The information contained in this document represents components of the legal health record. It is not the complete legal health record.[facility]
--- OUTSIDE RECORDS SUMMARY | 2025-01-11 19:13 | XMS_ITS | Encounter Summary ---
Author Organization [facility] Address [address] [facility] [address] [place] [address] Phone Care Team Providers Care School Crossing Guard Name Role Phone Rajendra Edward MD Unavailable Park Leo RN Unavailable [email or web address] Jaylen Oshea MD Unavailable [phone] Denis Gibson Unavailable [phone]- [phone] Denis Gibson Primary Care Provid er Nany Rowland RN Unavailable [email or web address] Encounter Details Date Type Department Care Team (Late st Contact Info) Description 08/10/[address] [facility] Laboratory 10 [facility] [address] [place] [address] Celina Carlton PA-C [address], Omar. [address] [place], [place] [phone] Social History Tobacco Use Types Packs/Day Years [...] Info) Description 01/13/2025 1:00 PM EDT Appointment [facility], Radiology Department Rajendra Edward MD [address] [place] [phone] South@ [email or web address] 01/20/2025 2:00 PM EST Office Visit [facility] at [address] [place] [address] Rajendra Edward MD 20 [place] [phone] South@ [facility] 02/17/2025 9:30 AM EST Office Visit [facility] at [address] [address] Rajendra Edward MD [address] [place] [phone] South@ [facility] documented as of this encounter Visit Diagnoses Not on filedocumented in this encounter Care Teams School Crossing Guard Relationship Specialty Start Date End Date Denis Gibson PA [address] [place] [phone] PCP - General Physician Rib Trim Separator 07/29/23 Rajendra Edward MD [address] [place] [phone] South@ [facility] Primary Oncologist Hematology and Oncology 05/08/15 Park Leo RN [address] [place] [phone] [email or web address] Primary Infusion Nurse 05/08/15 Jaylen Oshea MD [address] [place] [address] [email or web address] Referring Physician 06/01/15 Denis Gibson PA [address] [place] [address] 01/04/19 Nany Rowland RN [address] [place] [address] Paty [email or web address] Nurse Navigator 04/26/24 documented as of this encounter Additional Source Comments The information contained in this document represents components of the legal health record. It is not the complete legal health record.[facility]
--- OUTSIDE RECORDS SUMMARY | 2025-01-11 19:13 | XMS_ITS | Encounter Summary ---
Author Organization [facility] Address [address] [facility] [address] [place] [address] Phone Care Team Providers Care Timber Setter Name Role Phone Rajendra Edward MD Unavailable Park Leo RN Unavailable [email or web address] Jaylen Oshea MD Unavailable [phone] Denis Gibson Unavailable [phone] Denis Gibson Primary Care Provid er Denis Gibson Primary Care [facility] er Nany Rowland RN Unavailable [email or web address] Encounter Details Date Type Department Care Team (Late st Contact Info) Description 01/23/2022 Procedure Pass [facility], [address] [address] Social History Tobacco Use Types Packs/Day Years [...] Info) Description 01/13/2025 1:00 PM EDT Appointment [facility], Radiology Department Rajendra Edward MD [address] [place] [phone] South@ [email or web address] 01/20/2025 2:00 PM EST Office Visit [facility] at [address] [address] Rajendra Edward MD [address] [place] [phone] South@ [facility] 02/17/2025 9:30 AM EST Office Visit [facility] at [address] [address] Rajendra Edward MD [address] [place] [phone] South@ [facility] documented as of this encounter Visit Diagnoses Not on filedocumented in this encounter Additional Health Concerns Infection Onset Date Last Indicated Resolved Time CoV-Risk 07/06/2022 07/06/2022 07/06/2022 3:45 PM EDT COVID-19 07/06/2022 07/06/2022 07/27/2022 1:21 AM EDT documented as of this encounter Care Teams Timber Setter Relationship Specialty Start Date End Date Denis Gibson [facility] [place] [address] PCP - General 12/07/20 07/28/23 Denis Gibson PA [address] [place] [phone] PCP - General Physician Sawmill Supervisor 07/29/23 Rajendra Edward MD [address] [place] [phone] South@ [email or web address] Primary Oncologist Hematology and Oncology 05/08/15 Park Leo RN [address] [place] [phone] [email or web address] Primary Infusion Nurse 05/08/15 Jaylen Oshea MD [address] [place] [address] [email or web address] Referring Physician 06/01/15 Denis Gibson PA [address] [place] [address] 01/04/19 Nany Rowland RN [address] [place] [phone] [email or web address] [email or web address] Nurse Navigator 04/26/24 documented as of this encounter Additional Source Comments The information contained in this document represents components of the legal health record. It is not the complete legal health record.[facility]
--- OUTSIDE RECORDS SUMMARY | 2025-01-11 19:13 | XMS_ITS | Clinical Summary ---
Author Organization [facility] Address [address] [facility] [address] [place] [address] Phone Care Team Providers Care Mat Sewer Name Role Phone Rajendra Edward MD Unavailable Park Leo RN Unavailable [email or web address] Jaylen Oshea MD Unavailable [phone] Dilan Lopez Unavailable [phone] Dilan Lopez Primary Care Provid er Nany Rowland RN Unavailable [email or web address] [email or web address] Active Allergy Reactions Criticality Noted Date Comments Bicalutamide Vomiting Low 05/04/2015 Iodinated Contrast Media Hives,Rash Low 01/22/2006 Medications Ca cit-D3-mag#11-zi xm-zjgb-sth-bor (CALTRATE 600+D) 600 mg calcium- 800 unit-50 mg Tab Take 1 tablet by mouth daily. Active acetaminophen (TYLENOL) 325 mg tablet Take 2 tablets (650 mg total) by mouth every 8 (eight) hours as needed. 0 09/06/19 23 Active hydroCHLOROthiaz selene (HYDRODIURIL) 12.5 MG tablet Take 12.5 mg by mouth daily. 09/29/19 23 Active apixaban (ELIQUIS) 5 mg tablet Take 1 tablet by mouth 2 (two) times a day. To hold x 2 days 12/18/19 Active lisinopril (PRINIVIL,ZESTRI L) 10 MG tablet Take 20 mg by mouth daily. Active carboxymethylcel lulose (THERATEARS) 1 % DpGe Place into each eye 3 (three) times a day as needed. Active mirabegron (MYRBETRIQ) 25 mg Tb24 Take 25 mg by mouth. 11/11/19 24 Active loratadine (CLARITIN) 10 mg tablet Take 10 mg by mouth as needed for allergies. Active lidocaine (LIDODERM) 5 % Place 1 patch onto the skin daily. Remove & Discard patch within 12 hours or as directed by MD Active denosumab (PROLIA) 60 mg/mL Syrg subcutaneous syringe Inject 1 mL (60 mg total) under the skin once for 1 dose. 05/11/19 25 Active mineral oil/petrolatum,w chapincito (WHITE PETROLATUM-FISH HATCHERY MAN AL OIL OPHT) Apply to eye. 05/14/19 25 Active darolutamide (NUBEQA) 300 mg tablet Take 2 tablets (600 mg total) by mouth 2 (two) times a day. Swallow whole with food. 120 tablet 5 10/13/19 25 Active cephalexin (KEFLEX) 500 MG capsule take 1 capsule by mouth 4 times daily for 5 days 07/25/19 025 Discontinued doxycycline hyclate (DORYX) 100 MG tablet Take 1 tablet by mouth 2 (two) times a day. 07/25/19 025 Discontinued Active Problems Patient Care Coordination No te Formatting of this note migh t be different from the original. 04/26/2024 CT pharmacy in [facility] Problem Noted Date Diagnosed Date [...] 07, 2020 Entered By: DILAN LOPEZ Comment: Volt Product ICM model M301 serial [id number] may,. Bradycardia 01/04/2022 Prostate cancer metastatic to multiple sites Assessment & Plan (09/01/2022 4:12 PM EDT): Follows very closely and consistently with Dr Edward at [facility]. History of prostate cancer with mets [...] Encounters Date Type Department Care Team Description 01/10/2025 Telephone [facility] [address] [facility] 2nd [place] [address] Leslie Miguel pet scan; Care Coordination 12/29/2024 Orders Only [facility] [place] [facility] [address] [address] Crystal Cunningham PA-C Prostate cancer metastatic to multiple sites (Primary Dx) 12/22/2024 Telephone [facility] at [address] [address] Raven Russo [place] imaging 12/20/2024 4:45 PM EDT Telemedicine - audio only [facility] at [address] [address] Rajendra Edward MD Prostate cancer metastatic to multiple sites (Primary Dx) 12/15/2024 10:28 AM EDT - 12/15/2024 11:59 PM EDT Hospital Encounter [facility] [address] [place] [address] Rajendra Edward MD Discharge Disposition: Home or Self Care 12/15/2024 Transcribe Orders [facility] [address] [place] [address] Rajendra Edward MD Screening for prostate cancer (Primary Dx) 11/18/2024 8:30 AM EDT Office Visit [facility] at [address] [address] Rajendra Edward MD Prostate cancer metastatic to multiple sites (Primary Dx) 11/10/2024 10:56 AM EDT - 11/10/2024 11:59 PM EDT Hospital Encounter [facility] [address] [place] [address] Rajendra Edward MD Discharge Disposition: Home or Self Care 11/10/2024 Transcribe Orders [facility] [address] [place] [address] Rajendra Edward MD Screening for prostate cancer (Primary Dx); Prostate cancer metastatic to multiple sites 10/12/2024 Refill [facility] at [address] [address] Nany Rowland, electronics specialist Refill 10/12/2024 Telephone [facility] [address] [place] [address] Leslie Miguel refill; Medication Management from Last [...] Info) Description 01/13/2025 1:00 PM EDT Appointment [facility], Radiology Department Rajendra Edward MD [address] [place] [phone] [email or web address] 01/20/2025 2:00 PM EST Office Visit [facility] at [address] [address] Rajendra Edward MD [address] [place] [phone] South@ [email or web address] 02/17/2025 9:30 AM EST Office Visit [facility] at [address] [address] Rajendra Edward MD [address] [place] [phone] South@ [email or web address] Health Maintenance Due Date Last Done Comments DEPRESSION SCREENING 1957 PNEUMOCOCCAL VACCINES (50+ years) (3 of 3 - PPSV23, PCV20 or PCV21) 10/31/2014 09/05/2014, 08/27/1999 INFLUENZA VACCINE (#1) 2024 , 11/20/2023, 12/12/2022, Additional history exists COVID-19 VACCINE ( season) 2024 09/28/2024, 11/20/2023, 12/12/2022, Additional history exists BLOOD PRESSURE 05/18/2025 11/18/2024 CREATININE LEVEL 12/15/2025 12/15/2024, , 08/10/2024, Additional history exists POTASSIUM LEVEL 12/15/2025 12/15/2024, 10/16, 08/10/2024, Additional history exists Adult Td,Tdap Booster 01/08/2034 [...] this topic Medical Devices Implanted Type Area Residential Sales Consultant Device Identifier Shelf Expiration Date Model / Serial / Lot Bone Cement Antibiotic Refobacin - [id number] Implanted:Qty: 2 on 09/02/2022 by Jaison Ch MD at [facility] Left: Hip [employer] 10/13/2024 [id number] / / [id number] Hip Liner [id number] Acetabular Dm Longevity - [id number] Implanted:Qty: 1 on 09/02/2022 by Jaison Ch MD at [facility] Left: Hip [employer] 10/10/2026 [id number] / / [id number] Acetabular Shell 54mm Size F G7 Porous Plasma Halma [employer] Hole - [id number] Implanted:Qty: 1 on 09/02/2022 by Jaison Ch MD at [facility] Left: Hip [employer] 04/25/2032 [id number] / / [id number] Screw Dome 6.5x35mm G7 Aceetabular Low Profile Hip - [id number] Implanted:Qty: 1 on 09/02/2022 by Jaison Ch MD at [facility] Left: Hip [employer] 01/15/2032 [id number] / / [id number] Screw Bone 6.5x30mm Hip Dome G7 Acetabular Low Profile - [id number] Implanted:Qty: 1 on 09/02/2022 by Jaison Ch MD at [facility] Left: Hip [employer] 01/04/2032 [id number] / / [id number] Kit Preparation Cement Femoral Bone Quick Use Bx/1ea - [id number] Implanted:Qty: 1 on 09/02/2022 by Jaison Ch MD at [facility] Left: Hip [employer] 02/03/2027 [id number] / / [id number] Acetabular Liner 44mm Component Dual Mobility G7 - [id number] Implanted:Qty: 1 on 09/02/2022 by Jaison Ch MD at [facility] Left: Hip [employer] 04/30/2032 [id number] / / [id number] Hip Centralizer 15mm Implant Cemented Versys 16b Bx/1ea - [id number] Implanted:Qty: 1 on 09/02/2022 by Jaison Ch MD at [facility] Left: Hip [employer] 07/15/2027 [id number] / / [id number] Hip Stem 13mm Femoral Echo Fx Brimley Std Offset - [id number] Implanted:Qty: 1 on 09/02/2022 by Jaison Ch MD at [facility] Left: Hip [employer] 03/19/2026 [id number] / / [id number] Hip 6.0x28mm Active Articulation Dual Mobility Brimley Skirtless Modular Plus - [id number] Implanted:Qty: 1 on 09/02/2022 by Jaison Ch MD at [facility] Left: Hip [employer] 07/15/2031 [id number] / / [id number] Procedures Procedure Name Priority Date/Time Associated Diagnosis Comments OUTSIDE LAB 12/22/2024 PSA (SCREENING) Routine 12/15/2024 10:29 AM EDT Screening for prostate cancer CBC AND DIFFERENTIAL Routine 12/15/2024 10:29 AM EDT Prostate cancer metastatic to multiple sites COMPREHENSIVE METABOLIC PANEL Routine 12/15/2024 10:29 AM EDT Prostate cancer metastatic to multiple sites PSA (SCREENING) Routine 11/10/2024 10:56 AM EDT [...] sites from Last 3 Months Results * Outside Lab (12/22/2024) us Scanning Interface Provider LAB BLOOD ORDERABLES Final Result * Comprehensive metabolic panel (12/15/2024 10:29 AM EDT) Only the most recent of2 resultswithin the time period is included. SODIUM 137 133 - 146 mmol/L [facility] POTASSIUM 4.4 3.3 - 5.1 mmol/L [facility] CHLORIDE 101 96 - 108 mmol/L [facility] CO2 25 21 - 35 mmol/L [facility] BUN 14 6 - 19 mg/dL [facility] CREATININE 0.90 0.5 - 1.5 mg/dL [facility] GLUCOSE 85 70 - 99 mg/dL [facility] ALBUMIN 4.2 3.9 - 4.8 g/dL [facility] TOTAL PROTEIN 7.3 6.5 - 8.0 g/dL [facility] CALCIUM 9.2 8.4 - 10.3 mg/dL [facility] ALKALINE PHOSPHATASE 115 39 - 117 U/L [facility] TOTAL BILIRUBIN 0.3 0.0 - 1.2 mg/dL [facility] AST 20 0 - 37 U/L [facility] ALT 13 0 - 40 U/L [facility] GLOBULIN 3.1 1 - 4.8 g/dL [facility] EGFR 86 >59 mL/min/1.7 3m2 [facility] Comment:Estimated glomerular filtration rate calculated using the CKD-EPI refit equation. ANION GAP 15 10 - 20 mmol/L [facility] Blood 12/15/2024 10:2 9 AM EDT 12/15/2024 10:40 AM EDT us Rajendra Edward MD LAB BLOOD ORDERABLES Hali suarez Result Performing Organization Address City/State/[facility] Co de Phone Number [address] [address] * (ABNORMAL) CBC and differential (12/15/2024 10:29 AM EDT) Only the most recent of2 resultswithin the time period is included. WBC 7.12 4.00 - 11.00 K/uL [facility] RBC 4.69 4.50 - 5.90 M/uL [facility] HGB 13.0(L) 13.5 - 17.5 g/dL [facility] HCT 41.2 41.0 - 53.0 % [facility] PLT 180 150 - 450 K/uL [facility] MCV 87.8 80.0 - 100.0 fL [facility] MCH 27.7 27.0 - 31.0 pg [facility] MCHC 31.6(L) 32.0 - 36.0 g/dL [facility] RDW 14.5 11.5 - 14.5 % [facility] MPV 11.9 8.4 - 12.0 fL [facility] NRBC 0.00 0.00 /100 WBCs [facility] ABSOLUTE NRBC 0.00 0.00 K/uL [facility] DIFF METHOD Auto [facility] NEUTS 59.8 48.0 - 76.0 % [facility] LYMPHS 26.8 18.0 - 41.0 % [facility] MONOS 11.2(H) 4.0 - 11.0 % [facility] EOS 1.4 0.0 - 5.0 % [facility] BASOS 0.7 0.0 - 1.5 % [facility] Granulocytes, immature (%) 0.1 0.0 - 0.9 % [facility] ABSOLUTE NEUTS 4.25 1.92 - 7.60 K/uL [facility] ABSOLUTE LYMPHS 1.91 0.72 - 4.10 K/uL [facility] ABSOLUTE MONOS 0.80 0.16 - 1.10 K/uL [facility] ABSOLUTE EOS 0.10 0.00 - 0.50 K/uL [facility] ABSOLUTE BASOS 0.05 0.00 - 0.15 K/uL [facility] Granulocytes, immature 0.01 0.00 - 0.09 K/uL [facility] Blood 12/15/2024 10:2 9 AM EDT 12/15/2024 10:40 AM EDT Rajendra Edward MD LAB BLOOD ORDERABLES Hali l Result [address] [id number] * (ABNORMAL) PSA (screening) (12/15/2024 10:29 AM EDT) Only the most recent of2 resultswithin the time period is included. PSA 6.04(H) 0 - 4.00 ng/mL [facility] Comment: Test Methodology Una e801 Patient results determined by assays using different manufacturers or methods may not be comparable. Blood 12/15/2024 10:2 9 AM EDT 12/15/2024 10:41 AM EDT Rajendra Edward MD LAB BLOOD ORDERABLES Hali l Result [address] [address] * (ABNORMAL) Testosterone, total (11/10/2024 10:56 AM EDT) TESTOSTERONE 11(L) 249 - 836 ng/dL [facility] Blood 11/10/2024 10:5 6 AM EDT 11/10/2024 11:02 AM EDT Rajendra Edward MD LAB BLOOD ORDERABLES Hali l Result [address] [address] from Last 3 Months Insurance MEDICARE PART A & B [facility] CROSS MEDEX SUPPLEMENT [facility] MEDICARE PART A & B [employer] MEDEX SUPPLEMENT [facility] MEDICARE PART A & B [employer] MEDEX SUPPLEMENT Member Subscriber Plan / Payer (Ef fective 2008-Present) Name:Candelario Brock Relation to Subscriber:Self Name:Candelario Brock Payer ID:[id number] (NAIC) Type:Indemnity Address: [address] [facility] Address: [facility] [address] [place] [address] MEDICARE PART A & B [employer] MEDEX SUPPLEMENT [facility] Address: [facility] [address] [place] [address] MEDICARE PART A & B BLUE [employer]OSS MEDEX SUPPLE[place] [address] MEDICARE PART A [place] [id number] [facility] MEDEX SUPPLE[place] [address] MEDICARE PART A & B [employer] MEDEX SUPPLEMENT MEDICARE PART A & B [employer] MEDEX SUPPLEMENT [place] [employer] MEDEX SUPPLEMENT Advance Directives For more information, please contact: [phone] (9AM - 5PM [facility], Friday-Friday) Documents on File Type Date Recorded Patient Drier And Evaporator Operator Expl anation Healthcare Proxy 09/06/2022 11:48 AM Healthcare Proxy 04/07/2015 2:36 PM * Full Code (Latest Code Status on File) Date Activated Date Inactivated Comments 08/30/2022 2:09 PM Question Answer Comments Code Status Confirmed With: PatientFamily Healthcare Agents on File Name Relationship Healthcare Agent Relationship Communication Sophie Brock Spouse .Primary Health Care Agent (Proxy form on file) [email or web address] Care [email or web address] Mat Sewer Relationship Specialty Start Date End Date Dilan Lopez PA [address] [place] [address] PCP - General Physician Chemical Applicator 07/29/23 Rajendra Edward MD [address] [place] [phone] [email or web address] Primary Oncologist Hematology and Oncology 05/08/15 Park Leo, WANDER [address] [place] [phone] [email or web address] Primary Infusion Nurse 05/08/15 Jaylen Oshea MD [address] [place] [address] [email or web address] Referring Physician 06/01/15 Dilan Lopez PA [address] [place] [address] 01/04/19 Nany Rowland, RN [address] [place] [address] [email or web address] [email or web address] Nurse Navigator 04/26/24 Additional Source Comments The information contained in this document represents components of the legal health record. It is not the complete legal health record.[facility]
--- OUTSIDE RECORDS SUMMARY | 2025-01-11 19:13 | XMS_ITS | Encounter Summary ---
Author Organization [facility] Address [address] [facility] [address] [place] [address] Phone Care Team Providers Care Canal Driver Name Role Phone Rajendra Edward MD Unavailable Park Leo RN Unavailable [email or web address] Jaylen Oshea MD Unavailable Denis Gibson Unavailable +- [phone] Denis Gibson Primary Care Provid er Nany Rowland RN Unavailable [email or web address] Encounter Details Date Type Department Care Team (Late st Contact Info) Description 06/09/2024 Transcribe Orders [facility] Laboratory [address] [address] Rajendra Edward MD 20 [place] [address] Toby [email or web address]. DU Screening for prostate cancer (Primary Dx); [...] Info) Description 01/13/2025 1:00 PM EDT Appointment [facility], Radiology Department Rajendra Edward MD [address] [place] [phone] (work) South@ [email or web address] 01/20/2025 2:00 PM EST Office Visit [facility] at [address] [place] [address] Rajendra Edward MD [address] [place] [phone] South@ [facility] 02/17/2025 9:30 AM EST Office Visit [facility] at [facility] [address] [facility] 2nd [place] [address] Rajendra Edward MD 20 [place] [address] South@ [facility] documented as of this encounter Results * (ABNORMAL) Testosterone, total (06/09/2024 10:17 AM EDT) Pathologist [facility] TESTOSTERONE 9(L) 249 - 836 ng/dL [facility] Blood 06/09/2024 10:1 7 AM EDT 06/09/2024 10:27 AM EDT us Rajendra Edward MD LAB BLOOD ORDERABLES Hali l Result [address] [id number] * (ABNORMAL) Comprehensive metabolic panel (06/09/2024 10:17 AM EDT) [facility] SODIUM 139 133 - 146 mmol/L [facility] POTASSIUM 4.5 3.3 - 5.1 mmol/L [facility] CHLORIDE 102 96 - 108 mmol/L [facility] CO2 27 21 - 35 mmol/L [facility] BUN 21(H) 6 - 19 mg/dL [facility] CREATININE 1.00 0.5 - 1.5 mg/dL [facility] GLUCOSE 85 70 - 99 mg/dL [facility] ALBUMIN 4.1 3.9 - 4.8 g/dL [facility] TOTAL PROTEIN 7.4 6.5 - 8.0 g/dL [facility] CALCIUM 9.6 8.4 - 10.3 mg/dL [facility] ALKALINE PHOSPHATASE 69 39 - 117 U/L [facility] TOTAL BILIRUBIN 0.3 0.0 - 1.2 mg/dL [facility] AST 23 0 - 37 U/L [facility] ALT 14 0 - 40 U/L [facility] GLOBULIN 3.3 1 - 4.8 g/dL [facility] EGFR 76 >59 mL/min/1.7 3m2 [facility] Comment:Estimated glomerular filtration rate calculated using the CKD-EPI refit equation. ANION GAP 15 10 - 20 mmol/L [facility] Blood 06/09/2024 10:1 7 AM EDT 06/09/2024 10:27 AM EDT us Rajendra Edward MD LAB BLOOD ORDERABLES Hali suarez Result [address] [address] * (ABNORMAL) CBC and differential (06/09/2024 10:17 AM EDT) WBC 7.23 4.00 - 11.00 K/uL [facility] RBC 4.53 4.50 - 5.90 M/uL [facility] HGB 12.6(L) 13.5 - 17.5 g/dL [facility] HCT 39.2(L) 41.0 - 53.0 % [facility] PLT 178 150 - 450 K/uL [facility] MCV 86.5 80.0 - 100.0 fL [facility] MCH 27.8 27.0 - 31.0 pg [facility] MCHC 32.1 32.0 - 36.0 g/dL [facility] RDW 14.2 11.5 - 14.5 % [facility] MPV 11.9 8.4 - 12.0 fL [facility] NRBC 0.00 0.00 /100 WBCs [facility] ABSOLUTE NRBC 0.00 0.00 K/uL [facility] DIFF METHOD Auto [facility] NEUTS 61.3 48.0 - 76.0 % [facility] LYMPHS 26.0 18.0 - 41.0 % [facility] MONOS 10.5 4.0 - 11.0 % [facility] EOS 1.5 0.0 - 5.0 % [facility] BASOS 0.6 0.0 - 1.5 % [facility] Granulocytes, immature (%) 0.1 0.0 - 0.9 % [facility] ABSOLUTE NEUTS 4.43 1.92 - 7.60 K/uL [facility] ABSOLUTE LYMPHS 1.88 0.72 - 4.10 K/uL [facility] ABSOLUTE MONOS 0.76 0.16 - 1.10 K/uL [facility] ABSOLUTE EOS 0.11 0.00 - 0.50 K/uL [facility] ABSOLUTE BASOS 0.04 0.00 - 0.15 K/uL [facility] Granulocytes, immature 0.01 0.00 - 0.09 K/uL [facility] Blood 06/09/2024 10:1 7 AM EDT 06/09/2024 10:27 AM EDT Rajendra Edward MD LAB BLOOD ORDERABLES Hali l Result Performing Organization Address City/[facility]/ZIP Co de Phone Number [address] [address] * PSA (screening) (06/09/2024 10:17 AM EDT) PSA 1.68 0 - 4.00 ng/mL [facility] Comment: Test Methodology Una e801 Patient results determined by assays using different manufacturers or methods may not be comparable. Blood 06/09/2024 10:1 7 AM EDT 06/09/2024 10:26 AM EDT Rajendra Edward MD LAB BLOOD ORDERABLES Hali l Result [address] [address] documented in this encounter Visit Diagnoses Diagnosis Screening for prostate cancer- Primary Special screening for malignant neoplasm of prostate Prostate cancer Malignant neoplasm of prostate documented in this encounter Care Teams Canal Driver Relationship Specialty Start Date End Date Denis Gibson PA [address] [place] [phone] PCP - General Physician Cleaner Industrial 07/29/23 Rajendra Edward MD [address] [place] [phone] South@ [facility] Primary Oncologist Hematology and Oncology 05/08/15 Park Leo RN [address] [place] [phone] [email or web address] Primary Infusion Nurse 05/08/15 Jaylen Oshea MD [address] [place] [address] [email or web address] Referring Physician 06/01/15 Denis Gibson PA [address] [place] [address] 01/04/19 Nany Rowland RN [address] [place] [address] Paty [email or web address] Nurse Navigator 04/26/24 documented as of this encounter Additional Source Comments The information contained in this document represents components of the legal health record. It is not the complete legal health record.[facility]
--- OUTSIDE RECORDS SUMMARY | 2025-01-11 19:13 | XMS_ITS | Encounter Summary ---
Author Organization [facility] Address [address] [facility] [address] [place] [address] Phone Care Team Providers Care Alignment Specialist Name Role Phone Rajendra Edward MD Unavailable [phone] Park Leo RN Unavailable [email or web address] Jaylen Oshea MD Unavailable [phone] Denis Gibson Unavailable [phone] Denis Gibson Primary Care Provid er Nany Rowland RN Unavailable [email or web address] Reason for Referral * MRI/CAT Scan - Authorized Specialty Diagnoses / Procedures Referred By Jase t Referred To Contact Radiology Diagnoses Prostate cancer metastatic to multiple sites Procedures NM PET CT Prostate Cancer Imaging Rajendra Edward MD [address] [place] [phone] Phone: tel: fax: mailto:South @[facility] Referral ID Status Reason Start Date Expiration Date V isits Requested Visits Authorized [id number] Authorized 11/18/2024 11/18/2025 1 1 Encounter Details Date Type Department Care Team (Late st Contact Info) Description 12/29/2024 Orders Only [facility] [place] at [facility] [address] 2nd [place] [address] Crystal Cunningham PA-C [address] [place] [phone] [email or web address] Prostate cancer metastatic to multiple sites (Primary [...] Info) Description 01/13/2025 1:00 PM EDT Appointment [facility], Radiology Department Rajendra Edward MD [address] [place] [phone] South@ [facility] 01/20/2025 2:00 PM EST Office Visit [facility] at [address] [address] Rajendra Edward MD [address] [place] [phone] South@ [facility] 02/17/2025 9:30 AM EST Office Visit [facility] at [address] [address] Rajendra Edward MD [address] [place] [phone] South@ [facility] Scheduled Orders Name Type Priority Associated Diagnoses Orde r Schedule NM PET CT Prostate Cancer Imaging Imaging Routine Prostate cancer metastatic to multiple sites Expected: 01/05/2025 (Approximate), Expires: 03/31/2025 documented as of this encounter Visit Diagnoses Diagnosis Prostate cancer metastatic to multiple sites- Primary documented in this encounter Care Teams Alignment Specialist Relationship Specialty Start Date End Date Denis Gibson PA [address] [place] [address] PCP - General Physician Splitter Operator 07/29/23 Rajendra Edward MD [address] [place] [phone] South@ [facility] Primary Oncologist Hematology and Oncology 05/08/15 Park Leo, RN [address] [place] [address] [email or web address] Primary Infusion Nurse 05/08/15 Jaylen Oshea MD [address] [place] [address] [email or web address] Referring Physician 06/01/15 Denis Gibson PA [address] [place] [address] 01/04/19 Nany Rowland, WANDER [address] [place] [address] Paty [email or web address] Nurse Navigator 04/26/24 documented as of this encounter Additional Source Comments The information contained in this document represents components of the legal health record. It is not the complete legal health record.[facility]
--- OUTSIDE RECORDS SUMMARY | 2025-01-11 19:13 | XMS_ITS | Encounter Summary ---
Author Organization [facility] Address [address] [facility] [address] [place] [address] Phone Care Team Providers Care Electrolysis Engineer Name Role Phone Rajendra Edward MD Unavailable Park Leo RN Unavailable [email or web address] Jaylen Oshea MD Unavailable [phone] Denis Gibson Unavailable [phone] Denis Gibson Primary Care Provid er Denis Gibson Primary Care Provid er Nany Rowland RN Unavailable [email or web address] Encounter Details Date Type Department Care Team (Late st Contact Info) Description 08/30/2022 Procedure Pass [facility], Ct Scan - [facility] [address] [place] [address] Social History Tobacco Use Types Packs/Day Years [...] 4:32 AM EDT Miriam Rivas RN * [place] Suicide Severity Rating Scale (Screener/Recent Self-Report) Question [...] Info) Description 01/13/2025 1:00 PM EDT Appointment [facility], Radiology Department Rajendra Edward MD [address] [place] [phone] South@ [facility] 01/20/2025 2:00 PM EST Office Visit [facility] at [address] [address] Rajendra Edward MD [address] [place] [phone] South@ [facility] 02/17/2025 9:30 AM EST Office Visit [facility] at [address] [address] Rajendra Edward MD [address] [place] [phone] South@ [facility] documented as of this encounter Visit Diagnoses Not on filedocumented in this encounter Care Teams Electrolysis Engineer Relationship Specialty Start Date End Date Denis Gibson PA [address] [place] [address] PCP - General 12/07/20 07/28/23 Denis Gibson PA [address] [place] [phone] PCP - General Physician Music Therapy Specialist 07/29/23 Rajendra Edward MD [address] [place] [phone] South@ [facility] Primary Oncologist Hematology and Oncology 05/08/15 Park Leo RN [address] [place] [phone] [email or web address] Primary Infusion Nurse 05/08/15 Jaylen Oshea MD [address] [place] [address] [email or web address] Referring Physician 06/01/15 Denis Gibson PA [address] [place] [address] 01/04/19 Nany Rowland RN [address] [place] [address] Paty [email or web address] Nurse Navigator 04/26/24 documented as of this encounter Additional Source Comments The information contained in this document represents components of the legal health record. It is not the complete legal health record.[facility]
--- OUTSIDE RECORDS SUMMARY | 2025-01-11 19:13 | XMS_ITS | Encounter Summary ---
Author Organization [facility] Address [address] [facility] [address] [place] [address] Phone Care Team Providers Care Production Sorter Name Role Phone Rajendra Edward MD Unavailable Park Leo RN Unavailable [email or web address] Jaylen Oshea MD Unavailable [phone] Denis Gibson Unavailable [phone] Denis Gibson Primary Care Provid er Denis Gibson Primary Care [facility] er Nany Rowland RN Unavailable [email or web address] Encounter Details Date Type Department Care Team (Late st Contact Info) Description 06/30/2023 Procedure Pass [facility] Endoscopy Admitting Dept Virtual Department [address] [place] [address] Social History Tobacco Use Types Packs/Day Years [...] Info) Description 01/13/2025 1:00 PM EDT Appointment [facility], Radiology Department Rajendra Edward MD [address] [place] [phone] South@ [facility] 01/20/2025 2:00 PM EST Office Visit [facility] at [address] [address] Rajendra Edward MD [address] [place] [phone] South@ [facility] 02/17/2025 9:30 AM EST Office Visit [facility] at [facility] [address] [phone] Rajendra Edward MD [address] [place] [phone] South@ [facility] documented as of this encounter Visit Diagnoses Not on filedocumented in this encounter Care Teams Production Sorter Relationship Specialty Start Date End Date Denis Gibson PA [address] [place] [address] PCP - General 12/07/20 07/28/23 Denis Gibson PA [address] [place] [phone] PCP - General Physician Prenatal Genetic Counselor 07/29/23 Rajendra Edward MD [address] [place] [phone] South@ [facility] Primary Oncologist Hematology and Oncology 05/08/15 Park Leo RN [address] [place] [phone] [email or web address] Primary Infusion Nurse 05/08/15 Jaylen Oshea MD [address] [place] [address] Referring Physician 06/01/15 Denis Gibson PA [address] [place] [address] 01/04/19 Nany Rowland RN [address] [place] [address] Paty [email or web address] Nurse Navigator 04/26/24 documented as of this encounter Additional Source Comments The information contained in this document represents components of the legal health record. It is not the complete legal health record.[facility]
--- OUTSIDE RECORDS SUMMARY | 2025-01-11 19:13 | XMS_ITS | Encounter Summary ---
Author Organization [facility] Address [address] [facility] [address] [place] [address] Phone Care Team Providers Care Strip Cleaner Name Role Phone Rajendra Edward MD Unavailable Park Leo RN Unavailable [email or web address] Jaylen Oshea MD Unavailable [phone] Denis Gibson Unavailable [phone] Denis Gibson Primary Care Provid er Denis Gibson Primary Care Provid er Nany Rowland RN Unavailable [email or web address] Encounter Details Date Type Department Care Team (Late st Contact Info) Description 02/24/2023 Transcribe Orders [facility] Laboratory [address] [address] Rajendra Edward MD [address] [place] [address] Toby [email or web address] DU Screening for prostate cancer (Primary Dx) [...] Info) Description 01/13/2025 1:00 PM EDT Appointment [facility], Radiology Department Rajendra Edward MD [address] [place] [phone] South@ [facility] 01/20/2025 2:00 PM EST Office Visit [facility] and [facility] at [address] [address] Rajendra Edward MD [address] [place] [phone] South@ [facility] 02/17/2025 9:30 AM EST Office Visit [facility] at [address] [address] Rajendra Edward MD [address] [place] [phone] South@ [facility] documented as of this encounter Results * PSA (screening) (02/24/2023 9:27 AM EST) PSA 0.12 0 - 4.00 ng/mL [facility] Comment: Test Methodology Una e801 Patient results determined by assays using different manufacturers or methods may not be comparable. Blood 02/24/2023 9:27 AM EST 02/24/2023 9:33 AM EST us Rajendra Edward MD LAB BLOOD ORDERABLES Hali daniela Result [facility] [address] [place] [address] documented in this encounter Visit Diagnoses Diagnosis Screening for prostate cancer- Primary Special screening for malignant neoplasm of prostate documented in this encounter Care Teams Strip Cleaner Relationship Specialty Start Date End Date Denis Gibson PA [address] [place] [address] PCP - General 12/07/20 07/28/23 Denis Gibson PA [address] [place] [phone] PCP - General Physician Program Therapist 07/29/23 Rajendra Edward MD [address] [place] [phone] South@ [facility] Primary Oncologist Hematology and Oncology 05/08/15 Park Leo, RN [address] [place] [phone] [email or web address] Primary Infusion Nurse 05/08/15 Jaylen Oshea MD [address] [place] [address] [email or web address] Referring Physician 06/01/15 Denis Gibson [facility] [place] [address] 01/04/19 Nany Rowland, RN [address] [place] [address] Nany_[email or web address] Nurse Navigator 04/26/24 documented as of this encounter Additional Source Comments The information contained in this document represents components of the legal health record. It is not the complete legal health record.[facility]
--- OUTSIDE RECORDS SUMMARY | 2025-01-11 19:13 | XMS_ITS | Encounter Summary ---
Author Organization [facility] Address [address] [facility] [address] [place] [address] Phone Care Team Providers Care Customs Patrol Officer Name Role Phone Rajendra Edward MD Unavailable Park Leo RN Unavailable [email or web address] Jaylen Oshea MD Unavailable Denis Gibson Unavailable [phone]- [phone] Denis Gibson Primary Care Provid er Nany Rowland RN Unavailable [email or web address] Encounter Details Date Type Department Care Team (Late st Contact Info) Description 04/12/2024 Transcribe Orders [facility] Laboratory [address] [address] Rajendra Edward MD [address] [place] [phone] Toby [email or web address] DU Screening for prostate cancer (Primary Dx) [...] Info) Description 01/13/2025 1:00 PM EDT Appointment [facility], Radiology Department Rajendra Edward MD [address] [place] [phone] (work) [email or web address] 01/20/2025 2:00 PM EST Office Visit [facility] at [address] [place] [address] Rajendra Edward MD 20 [place] [phone] South@ [facility] 02/17/2025 9:30 AM EST Office Visit [facility] at [facility] [address] [address] Rajendra Edward MD 20 [place] [phone] South@ [facility] documented as of this encounter Results * PSA (screening) (04/12/2024 9:19 AM EST) PSA 2.27 0 - 4.00 ng/mL [facility] Comment: Test Methodology Una e801 Patient results determined by assays using different manufacturers or methods may not be comparable. Blood 04/12/2024 9:19 AM EST 04/12/2024 9:21 AM EST us Rajendra Edward MD LAB BLOOD ORDERABLES Hali l Result [address] [address] documented in this encounter Visit Diagnoses Diagnosis Screening for prostate cancer- Primary Special screening for malignant neoplasm of prostate documented in this encounter Care Teams Customs Patrol Officer Relationship Specialty Start Date End Date Denis Gibson PA [address] [place] [phone] PCP - General Physician Handle Bender 07/29/23 Rajendra Edward MD [address] [place] [phone] South@ [facility] Primary Oncologist Hematology and Oncology 05/08/15 Park Leo RN [address] [place] [phone] [email or web address] Primary Infusion Nurse 2/22/16 Jaylen Oshea MD [address] [place] [address] [email or web address] Referring Physician 06/01/15 Denis Gibson PA [address] [place] [address] 01/04/19 Nany Rowland, RN [address] [place] [address] Paty [email or web address] Nurse Navigator 04/26/24 documented as of this encounter Additional Source Comments The information contained in this document represents components of the legal health record. It is not the complete legal health record.[facility]
--- OUTSIDE RECORDS SUMMARY | 2025-01-11 19:13 | XMS_ITS | Encounter Summary ---
Author Organization [facility] Address [address] [facility] [address] [place] [address] Phone Care Team Providers Care Divisional Human Resources Director Name Role Phone Rajendra Edward MD Unavailable Park Leo RN Unavailable [email or web address] Jaylen Oshea MD Unavailable Denis Gibson Unavailable [phone] Denis Gibson Primary Care [facility] er Denis Gibson Primary Care [facility] er Nany Rowland RN Unavailable [email or web address] Reason for Referral * MRI/CAT Scan - Closed Specialty Diagnoses / Procedures Referred By Contac t Referred To Contact Radiology Diagnoses Spinal stenosis, lumbar region with neurogenic claudication Procedures MRI Lumbar Spine System, Provider [place] In, [place] [address] Referral ID Status Reason Start Date Expiration Date Visits Re quested Visits Authorized [id number] Closed 07/18/2023 09/14/2024 1 1 Encounter Details Date Type Department Care Team (Late st Contact Info) Description 07/18/2023 Transcribe Orders Virtual Department [address] [place] [address] System, Provider Not In, PhD [facility] [address] [address] Spinal stenosis, lumbar region with neurogenic claudication [...] Info) Description 01/13/2025 1:00 PM EDT Appointment [facility], Radiology Department Rajendra Edward MD [address] [place] [phone] South@ [facility] 01/20/2025 2:00 PM EST Office Visit [facility] at [address] [address] Rajendra Edward MD [address] [place] [phone] South@ [facility] 02/17/2025 9:30 AM EST Office Visit [facility] [place] at [address] [address] Rajendra Edward MD [address] [place] [phone] South@ [facility] documented as of this encounter Results * [...] claudication documented in this encounter Care Teams Divisional Human Resources Director Relationship Specialty Start Date End Date Denis Gibson PA [address] [place] [address] PCP - General 12/07/20 07/28/23 Denis Gibson PA [address] [place] [phone] PCP - General Physician Entry Level Civil Engineer 07/29/23 Rajendra Edward MD [address] [place] [phone] South@ [facility] Primary Oncologist Hematology and Oncology 05/08/15 Park Leo RN [address] [place] [phone] [email or web address] Primary Infusion Nurse 05/08/15 Jaylen Oshea MD [address] [place] [address] Referring Physician 06/01/15 Denis Gibson PA [address] [place] [address] 01/04/19 Nany Rowland, RN [address] [place] [phone] Paty [email or web address] Nurse Navigator 04/26/24 documented as of this encounter Additional Source Comments The information contained in this document represents components of the legal health record. It is not the complete legal health record.[facility]
--- OUTSIDE RECORDS SUMMARY | 2025-01-11 19:13 | XMS_ITS | Encounter Summary ---
Author Organization [facility] Address [address] [facility] [address] [place] [address] Phone Care Team Providers Care Edger Machine Helper Name Role Phone Rajendra Edward MD Unavailable Park Leo RN Unavailable [email or web address] Jaylen Oshea MD Unavailable Denis Gibson Unavailable [phone] Denis Gibson Primary Care Provid er Denis Gibson Primary Care Provid er Nany Rowland RN Unavailable [email or web address] Encounter Details Date Type Department Care Team (Late st Contact Info) Description 08/31/2022 Procedure Pass [facility], Ct Scan - [facility] [address] [place] [address] Social History Tobacco Use Types Packs/Day Years [...] Info) Description 01/13/2025 1:00 PM EDT Appointment [facility], Radiology Department Rajendra Edward MD [address] [place] [phone] South@ [facility] 01/20/2025 2:00 PM EST Office Visit [facility] at [address] [address] Rajendra Edward MD [address] [place] [phone] South@ [facility] 02/17/2025 9:30 AM EST Office Visit [facility] at [address] [address] Rajendra Edward MD [address] [place] [phone] South@ [facility] documented as of this encounter Visit Diagnoses Not on filedocumented in this encounter Care Teams Edger Machine Helper Relationship Specialty Start Date End Date Denis Gibson PA [address] [place] [phone] PCP - General 12/07/20 07/28/23 Denis Gibson PA [address] [place] [phone] PCP - General Physician Basketball Commentator 07/29/23 Rajendra Edward MD [address] [place] [phone] South@ [facility] Primary Oncologist Hematology and Oncology 05/08/15 Park Leo, WANDER [address] [place] [phone] [email or web address] Primary Infusion Nurse 05/08/15 Jaylen Oshea MD [address] [place] [address] [email or web address] Referring Physician 06/01/15 Denis Gibson PA [address] [place] [address] 01/04/19 Nany Rowland RN [address] [place] [phone] Paty [email or web address] Nurse Navigator 04/26/24 documented as of this encounter Additional Source Comments The information contained in this document represents components of the legal health record. It is not the complete legal health record.[facility]
--- OUTSIDE RECORDS SUMMARY | 2025-01-11 19:14 | XMS_ITS | Encounter Summary ---
Author Organization [facility] Address [address] [facility] [address] [place] [address] Phone Care Team Providers Care Ammunition And Explosives Handler Name Role Phone Jaylen Oshea MD Primary Care Provider [phone] Rajendra Edward MD Unavailable Park Leo RN Unavailable [email or web address] Jaylen Oshea MD Unavailable [phone] Denis Gibson Unavailable Denis Gibson Primary Care Provid er Denis Gibson Primary Care Provid er Nany Rowland RN Unavailable [email or web address] Encounter Details Date Type Department Care Team (Late st Contact Info) Description 10/02/2017 Procedure Pass [facility], Radiology Department Social History Tobacco [...] Info) Description 01/13/2025 1:00 PM EDT Appointment [facility], Radiology Department Rajendra Edward MD [address] [place] [phone] South@ [facility] 01/20/2025 2:00 PM EST Office Visit [facility] at [address] [address] Rajendra Edward MD [address] [place] [phone] Souht@ [facility] 02/17/2025 9:30 AM EST Office Visit [facility] at [address] [address] Rajendra Edward MD [address] [place] [phone] South@ [facility] documented as of this encounter Visit Diagnoses Not on filedocumented in this encounter Additional Health Concerns Infection Onset Date Last Indicated Resolved Time CoV-Risk 07/06/2022 07/06/2022 07/06/2022 3:45 PM EDT COVID-19 07/06/2022 07/06/2022 07/27/2022 1:21 AM EDT documented as of this encounter Care Teams Ammunition And Explosives Handler Relationship Specialty Start Date End Date Jaylen Oshea MD [address] [place] [address] PCP - General 04/03/15 12/06/20 Denis Gibson PA [address] [place] [phone] PCP - General 12/07/20 07/28/23 Denis Gibson PA [address] [place] [address] PCP - General Physician Paper Mill Manager 07/29/23 Rajendra Edward MD [address] [place] [phone] South@ [facility] Primary Oncologist Hematology and Oncology 05/08/15 Park Leo, WANDER [address] [place] [phone] [email or web address] Primary Infusion Nurse 05/08/15 Jaylen Oshea MD [facility] [place] [address] [email or web address] Referring Physician 06/01/15 Denis Gibson PA [address] [place] [phone] 01/04/19 Nany Rowland RN [address] [place] [address] Paty [email or web address] Nurse Navigator 04/26/24 documented as of this encounter Additional Source Comments The information contained in this document represents components of the legal health record. It is not the complete legal health record.[facility]
== END 2025-01-11 15:58 | disposition home or self-care (01) ==
LOC: HO.HOS 14:47
PROVIDERS: Visit Provider Physician Assistant
DX: S42.302A Unspecified fracture of shaft of humerus, left arm, initial encounter for closed fracture (principal)
CPT/HCPCS: 99213

== ENCOUNTER → 2025-01-11 14:48 | Outpatient (BNV) | payer MEDICARE, SELFPAY | PROVIDERS: Visit Provider Radiology Diagnostic Radiology | DX: S42.302D Unspecified fracture of shaft of humerus, left arm, subsequent encounter for fracture with routine healing (principal) | CPT/HCPCS: 73060 ==

== ENCOUNTER 2025-01-19 11:10 | Outpatient (AMB) | payer MEDICARE, SELFPAY ==
--- OUTSIDE RECORDS SUMMARY | 2015-04-12 08:26 | XMS_ITS | Encounter Summary ---
Author Organization [facility] Address [address] [place] [address] Phone Care Team Providers Care Food Stylist Name Role Phone Jaylen Oshea MD Primary Care Provider Encounter Details Date Type Department Care Team (Late st Contact Info) Description 04/12/2015 8:26 AM EST Hospital Encounter [facility], Radiology Department Unknown, Unknown, Social History Tobacco Use Types Packs/Day Years Used Date Smoking Tobacco: Former Cigarettes Q uit: 06/22/1987 Smokeless Tobacco: Never Alcohol Use Standard Drinks/Week Comments Not Currently 0 (1 standard drink = 0.6 oz pur e alcohol) none for 30 years Home Health Assessment: Transportation Answer Date Recorded Lack of Transportation (Medical) No 10/03/2022 Lack of Transportation (Non-Medical) No 10/03/2022 Patient Unable or Declines to Respond No 10/03/2022 Education Answer Date Recorded Are you interested in more education? Not on tulio e 07/12/2022 Are you concerned about learning? Not on file 07/12/2022 No 07/12/2022 No 07/12/2022 Digital Access Answer Date Recorded No 08/12/2022 No 08/12/2022 Reliable internet access at home? Not on file 08/12/2022 Device with a working camera? Not on file Intimate Partner Violence Answer Date R ecorded Are you denied basic needs s uch as food, clothing, or medical care? No 06/30/2023 In the past 12 months have y ou been in a relationship with a person who hurts, threatens, or tries to control you? No 06/30/2023 Are you denied basic needs s uch as food, clothing, or medical care? No 06/30/2023 In the past 12 months have y ou been in a relationship with a person who hurts, threatens, or tries to control you? No 06/30/2023 Sex and Gender Information Value Date Recorded Sex Assigned at Male 07/06/2022 3:03 PM EDT Legal Sex Male 1:44 PM EST Gender Identity Male 07/06/2022 3:03 PM EDT Sexual Orientation Not on file documented as of this encounter Functional Status * Calculated C-SSRS Risk Score (Lifetime/Recent) Answer Date of Assessment Author No Risk Indicated 08/30/2022 4:32 AM EDT Miriam Rivas RN * [place] Suicide Severity Rating Scale (Screener/Recent Self-Report) Question Answer Date of Assessment Author 1. Wish to be (Past 1 Month) No 023 4:32 AM EDT Miriam Rivas RN 2. Non-Specific Active Suici saul Thoughts (Past 1 Month) No 08/30/2022 4:32 AM EDT India Rivas ra, RN 6. Suicidal Behavior (Lifetime) No 3 4:32 AM EDT Miriam Rivas RN documented as of this encounter Plan of Treatment Upcoming Encounters Date Type Department Care Team (Late st Contact Info) Description 01/20/2025 2:00 PM EST Office Visit [facility] at [address] [address] Rajendra Edward MD [address] [place] [phone] South@ [email or web address] 02/17/2025 9:30 AM EST Office Visit [facility] at [address] [address] Rajendra Edward MD [address] [place] [phone] South@ [email or web address] Scheduled Orders Name Type Priority Associated Diagnoses Orde r Schedule CT Chest Imaging Routine Prostate cancer metastatic to multiple sites As Needed for 1 Occurrences starting 04/12/2015 until 04/12/2015 CT Abdomen/Pelvis Imaging Routine Prostate cancer metastatic to multiple sites As Needed for 1 Occurrences starting 04/12/2015 until 04/12/2015 documented as of this encounter Visit Diagnoses Diagnosis Prostate cancer metastatic to multiple sites documented in this encounter Additional Health Concerns Infection Onset Date Last Indicated Resolved Time CoV-Risk 07/06/2022 07/06/2022 07/06/2022 3:45 PM EDT COVID-19 07/06/2022 07/06/2022 07/27/2022 1:21 AM EDT documented as of this encounter Care Teams Food Stylist Relationship Specialty Start Date End Date Jaylen Oshea MD [address] [place] [phone] [email or web address] PCP - General 04/03/15 12/06/20 documented as of this encounter Additional Source Comments The information contained in this document represents components of the legal health record. It is not the complete legal health record.[facility]
--- OUTSIDE RECORDS SUMMARY | 2015-09-13 11:00 | XMS_ITS | Encounter Summary ---
Author Organization [facility] Address [address] [place] [address] Phone Care Team Providers Care Supply Chain Specialist Name Role Phone Jaylen Oshea MD Primary Care Provider [phone] Rajendra Edward MD Unavailable Park Leo RN Unavailable [email or web address] Jaylen Oshea MD Unavailable Encounter Details Date Type Department Care Team (Late st Contact Info) Description 09/13/2015 12:00 PM EDT Hospital Encounter [facility], Radiology Department Unknown, Unknown, Social History Tobacco [...] 4:32 AM EDT Miriam Rivas RN * [place] Suicide Severity Rating Scale (Screener/Recent Self-Report) Question [...] Description 01/20/2025 2:00 PM EST Office Visit [facility] at [address] [place] [address] Rajendra Edward MD [address] [place] [phone] South@ [email or web address] 02/17/2025 9:30 AM EST Office Visit [facility] at [address] [address] Rajendra Edward MD 20 [place] [phone] South@ [facility] Scheduled Orders Name Type Priority Associated Diagnoses Orde r Schedule NM Bone Scan Whole Body Imaging Routine Prostate cancer metastatic to multiple sites As Needed for 1 Occurrences starting 09/13/2015 until 09/13/2015 documented as of this encounter Visit Diagnoses Diagnosis Prostate cancer metastatic to multiple sites documented in this encounter Additional Health Concerns Infection Onset Date Last Indicated Resolved Time CoV-Risk 07/06/2022 07/06/2022 07/06/2022 3:45 PM EDT COVID-19 07/06/2022 07/06/2022 07/27/2022 1:21 AM EDT documented as of this encounter Care Teams Supply Chain Specialist Relationship Specialty Start Date End Date Jaylen Oshea MD [address] [place] [address] [email or web address] PCP - General 04/03/15 12/06/20 Rajendra Edward MD [address] [place] [phone] South@ [email or web address] Primary Oncologist Hematology and Oncology 05/08/15 Park Leo, WANDER [address] [place] [phone] [email or web address] Primary Infusion Nurse 05/08/15 Jaylen Oshea MD [address] [place] [address] [email or web address] Referring Physician 06/01/15 documented as of this encounter Additional Source Comments The information contained in this document represents components of the legal health record. It is not the complete legal health record.[facility]
--- OUTSIDE RECORDS SUMMARY | 2015-09-13 12:20 | XMS_ITS | Encounter Summary ---
Author Organization [facility] Address [address] [facility] [address] [place] [address] Phone Care Team Providers Care Medical Affairs Manager Name Role Phone Jaylen Oshea MD Primary Care Provider Rajendra Edward MD Unavailable Park Leo RN Unavailable [email or web address] Jaylen Oshea MD Unavailable [phone] Encounter Details Date Type Department Care Team (Late st Contact Info) Description 09/13/2015 1:20 PM EDT Hospital Encounter [facility], Radiology Department Unknown, Unknown, MD Social History Tobacco Use Types Packs/Day Years [...] 4:32 AM EDT Miriam Rivas RN * [place] Suicide Severity Rating Scale (Screener/Recent Self-Report) Question [...] Description 01/20/2025 2:00 PM EST Office Visit [facility] at [address] [place] [address] Rajendra Edward MD [address] [place] [phone] South@ [email or web address] 02/17/2025 9:30 AM EST Office Visit [facility] at [facility] [address] [address] Rajendra Edward MD 20 [place] [phone] South@ [facility] Scheduled Orders Name Type Priority Associated Diagnoses Orde r Schedule CT Chest Imaging Routine Prostate cancer metastatic to multiple sites As Needed for 1 Occurrences starting 09/13/2015 until 09/13/2015 CT Abdomen/Pelvis Imaging Routine Prostate cancer metastatic [...] documented as of this encounter Care Teams Medical Affairs Manager Relationship Specialty Start Date End Date Jaylen Oshea MD [address] [place] [address] [email or web address] PCP - General 04/03/15 12/06/20 Rajendra Edward MD [address] [place] [phone] South@ [email or web address] Primary Oncologist Hematology and Oncology 05/08/15 Park Leo, WANDER [address] [place] [phone] [email or web address] Primary Infusion Nurse 05/08/15 Jaylen Oshea MD [address] [place] [address] [email or web address] Referring Physician 06/01/15 documented as of this encounter Additional Source Comments The information contained in this document represents components of the legal health record. It is not the complete legal health record.[facility]
--- OUTSIDE RECORDS SUMMARY | 2018-01-13 12:00 | XMS_ITS | Encounter Summary ---
Author Organization [facility] Address [address] [facility] [address] [place] [address] Phone Care Team Providers Care Immersion Metalcleaner Name Role Phone Jaylen Oshea MD Primary Care Provider + [phone] Rajendra Edward MD Unavailable [phone] Park Leo RN Unavailable [email or web address] Jaylen Oshea MD Unavailable [phone] Reason for Referral * MRI/CAT Scan - Closed Specialty Diagnoses / Procedures Referred By Jase dow Referred To Contact Radiology Diagnoses Prostate cancer metastatic to multiple sites Procedures CT Abdomen/Pelvis CT CHEST Rajendra Edward MD Phone: tel: fax: mailto:South @[facility] Referral ID Status Reason Start Date Expiration Date Visits Re quested Visits Authorized [id number] Closed 10/02/2017 10/02/2018 1 1 * MRI/CAT Scan - Closed Specialty Diagnoses / Procedures Referred By Jase dow Referred To Contact Radiology Diagnoses Prostate cancer metastatic to multiple sites Procedures CT Chest CT ABDOMEN/PELVIS Rajendra Edward MD Phone: tel: fax: mailto:South @[facility] Referral ID Status Reason Start Date Expiration Date Visits Re quested Visits Authorized [id number] Closed 10/02/2017 02/13/2018 1 1 Reason for Visit * MRI/CAT Scan - Closed Specialty Diagnoses / Procedures Referred By Jase dow Referred To Contact Radiology Diagnoses Prostate cancer metastatic to multiple sites Procedures CT Chest CT ABDOMEN/PELVIS Rajendra Edward MD Phone: tel: fax: mailto:South @[facility] Referral ID Status Reason Start Date Expiration Date Visits Re quested Visits Authorized [id number] Closed 10/02/2017 02/13/2018 1 1 Encounter Details Date Type Department Care Team (Late st Contact Info) Description 01/13/2018 1:00 PM EDT Hospital Encounter [facility], Radiology Department Rajendra Edward MD [address] [place] [phone] Jessenia [email or web address] Social History Tobacco Use Types Packs/Day Years [...] 4:32 AM EDT Miriam Rivas RN * [place] Suicide Severity Rating Scale (Screener/Recent Self-Report) Question [...] Description 01/20/2025 2:00 PM EST Office Visit [facility] at [address] [address] Rajendra Edward MD [address] [place] [phone] (work) [email or web address] 02/17/2025 9:30 AM EST Office Visit [facility] and [facility] at [address] [address] Rajendra Edward MD [address] [place] [phone] South@ [facility] Scheduled Orders Name Type Priority Associated Diagnoses Orde r Schedule CT Chest Imaging Routine Prostate cancer metastatic to multiple sites As Needed for 1 Occurrences starting 01/13/2018 until 01/13/2018 CT Abdomen/Pelvis Imaging Routine Prostate cancer metastatic to multiple sites As Needed for 1 Occurrences starting 01/13/2018 until 01/13/2018 documented as of this encounter Visit Diagnoses Diagnosis Prostate cancer metastatic to multiple sites documented in this encounter Additional Health Concerns Infection Onset Date Last Indicated Resolved Time CoV-Risk 07/06/2022 07/06/2022 07/06/2022 3:45 PM EDT COVID-19 07/06/2022 07/06/2022 07/27/2022 1:21 AM EDT documented as of this encounter Care Teams Immersion Metalcleaner Relationship Specialty Start Date End Date Jaylen Oshea MD [address] [place] [address] PCP - General 04/03/15 12/06/20 Rajendra Edward MD [address] [place] [phone] South@ [facility] Primary Oncologist Hematology and Oncology 05/08/15 Park Leo, RN [address] [place] [phone] [email or web address] Primary Infusion Nurse 05/08/15 Jaylen Oshea MD [address] [place] [address] Referring Physician 06/01/15 documented as of this encounter Additional Source Comments The information contained in this document represents components of the legal health record. It is not the complete legal health record.[facility]
--- OUTSIDE RECORDS SUMMARY | 2025-01-13 12:00 | XMS_ITS | Encounter Summary ---
Author Organization [facility] Address [address] [facility] [address] [place] [address] Phone Care Team Providers Care Gin Pole Operator Name Role Phone Rajendra Edward MD Unavailable [phone] Park Leo RN Unavailable [email or web address] Jaylen Oshea MD Unavailable [phone] Denis Gibson Unavailable [phone] Denis Gibson Primary Care Provid er Nany Rowland RN Unavailable [email or web address] Reason for Referral * MRI/CAT Scan - Closed Specialty Diagnoses / Procedures Referred By Jase dow Referred To Contact Radiology Diagnoses Prostate cancer metastatic to multiple sites Procedures NM PET CT Prostate Cancer Imaging Rajendra Edward MD [address] [place] [phone] Phone: tel: fax: mailto:South @[facility] Referral ID Status Reason Start Date Expiration Date Visits Re quested Visits Authorized [id number] Closed 11/18/2024 11/18/2025 1 1 Reason for Visit * MRI/CAT Scan - Closed Specialty Diagnoses / Procedures Referred By Jase dow Referred To Contact Radiology Diagnoses Prostate cancer metastatic to multiple sites Procedures NM PET CT Prostate Cancer Imaging Rajendra Edward MD [address] [place] [address] Phone: tel: fax: mailto:South @[facility] Referral ID Status Reason Start Date Expiration Date Visits Re quested Visits Authorized [id number] Closed 11/18/2024 11/18/2025 1 1 Encounter Details Date Type Department Care Team (Latest Contact Info) Description 01/13/2025 1:00 PM EDT - 01/13/2025 11:59 PM EDT Hospital Encounter [facility], Radiology Department Rajendra Edward MD [address] [place] [phone] Leigh [email or web address] Discharge Disposition: Home or Self Care Social History Tobacco Use Types Packs/Day Years [...] on file documented as of this encounter Medications at Time of Discharge acetaminophen (TYLENOL) 325 mg tablet Take 2 tablets (650 mg total) by mouth every 8 (eight) hours as needed. 0 09/05/2022 apixaban (ELIQUIS) 5 mg tablet Take 1 tablet by mouth 2 (two) times a day. To hold x 2 days 12/17/2022 Ca cit-D3-mag#11-zin j-qipm-wpb-bor (CALTRATE 600+D) 600 mg calcium- 800 unit-50 mg Tab Take 1 tablet by mouth daily. carboxymethylcell ulose (THERATEARS) 1 % DpGe Place into each eye 3 (three) times a day as needed. darolutamide (NUBEQA) 300 mg tablet Take 2 tablets (600 mg total) by mouth 2 (two) times a day. Swallow whole with food. 120 tablet 5 10/12/2024 hydroCHLOROthiazi de (HYDRODIURIL) 12.5 MG tablet Take 12.5 mg by mouth daily. 09/28/2022 lidocaine (LIDODERM) 5 % Place 1 patch onto the skin daily. Remove & Discard patch within 12 hours or as directed by lisinopril (PRINIVIL,ZESTRIL ) 10 MG tablet Take 20 mg by mouth daily. loratadine (CLARITIN) 10 mg tablet Take 10 mg by mouth as needed for allergies. mineral oil/petrolatum,wh ite (WHITE PETROLATUM-MINERA L OIL OPHT) Apply to eye. 05/14/2024 mirabegron (MYRBETRIQ) 25 mg Tb24 Take 25 mg by mouth. 11/11/2023 documented as of this encounter Plan of Treatment Upcoming Encounters Date Type Department Care Team (Late st Contact Info) Description 01/20/2025 2:00 PM EST Office Visit [facility] at [address] [address] Rajendra Edward MD [address] [place] [phone] South@ [facility] 02/17/2025 9:30 AM EST Office Visit [facility] at [address] [address] Rajendra Edward MD [address] [place] [phone] South@ [facility] Scheduled Orders Name Type Priority Associated Diagnoses Orde r Schedule NM PET CT Prostate Cancer Imaging Imaging Routine Prostate cancer metastatic to multiple sites As Needed for 1 Occurrences starting 01/14/2025 until 01/14/2025 documented as of this encounter Visit Diagnoses Diagnosis Prostate cancer metastatic to multiple sites documented in this encounter Care Teams Gin Pole Operator Relationship Specialty Start Date End Date Denis Gibson PA [address] [place] [phone] PCP - General Physician Enamel Shader 07/29/23 Rajendra Edward MD [address] [place] [phone] South@ [facility] Primary Oncologist Hematology and Oncology 05/08/15 Park Leo, RN [address] [place] [phone] [email or web address] Primary Infusion Nurse 05/08/15 Jaylen Oshea [place] [address] [email or web address] Referring Physician 06/01/15 Denis Gibson [place] [address] 01/04/19 Nany Rowland RN [address] [place] [phone] Paty [email or web address] Nurse Navigator 04/26/24 documented as of this encounter Additional Source Comments The information contained in this document represents components of the legal health record. It is not the complete legal health record.[facility]
--- NOTE | 2025-01-19 11:25 | MHC.OFFVIS ---
Intake Visit Reasons: Prolia/6m/PET CT/DEXA Intake Note: Patient is present for Prolia Inj/PSA/Bone Density Urology Med: Myrbetriq Antibiotic Allergy: None Blood Thinner: Eliquis Plant Protection Guard Required: No Allergies bicalutamide Allergy (Mild, Verified 01/19/25 11:25) Unknown Iodinated Contrast Media Allergy (Mild, Verified 01/19/25 11:25) Unknown HPI Comments Details: Candelario is a very pleasant male. He is a patient of . 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 Based on progressive metastatic disease and mild bone pain DINESH 177 is an option for therapy They will discuss with [facility] later this week and contact us He was informed that DINESH 177 is available at [facility] 01/08 - oral Nubeqa from [facility] plus orchiectomy plus Prolia Yearly DEXA scan shows osteopenia which is an improvement PET-CT progressive metastatic bony disease PSA 6.4 - per report doubling time less than six-month DEXA scan osteoporotic 12/07 - informs he broke his hip September 2022 Bone scan - 12/07 - no evidence of current active disease Prolia - 01/07, 06/08 Prostate cancer - longstanding - 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 Diagnosis approximately 2004 Initial therapy with external beam radiation and radioactive seeds Develops question of metastatic disease Orchiectomy performed in [place] Followed at [facility] with 2nd generation antiandrogen therapy - Coy Follows a [facility] every 4 months Radiation cystitis Slowly developing urgency and frequency [facility] Urinary incontinence 2021 underwent prostate procedure - UroLift Procedure had to be reversed Subsequent leakage with urgency particularly stress incontinence Doing well with Myrbetriq - medications through [facility] Medical History Weak urinary stream Nocturia Metastatic malignant neoplasm to prostate Microscopic hematuria Social History Alcohol intake: never Patient Tobacco Use Status: Never used Tobacco Current occupational status: retired Current occupation: right hand dominant Review of Systems Const Denies chills and Denies fever(s) Card Reports no additional complaints and Denies syncope Resp Denies cough GI Denies abdominal pain and Denies heartburn Reports as per HPI and Denies change in libido Neuro Denies syncope Psych Denies change in libido Endo Denies change in libido Physical Exam Const General: cooperative, healthy appearing, comfortable and no acute distress Orientation/consciousness: patient oriented x3 HEENT Face and sinus: Yes normal facial exam Mouth: moist mucous membranes Neck Neck: Yes normal visual inspection, Yes full ROM and Yes trachea midline Chest Chest palpation & inspection: normal inspection of the chest Resp Effort & Inspection: normal respiratory effort, able to speak in complete sentences and no respiratory distress GI Inspection: Yes normal to inspection Back/Spine/Pelvis Cervical Spine: normal cervical lordosis Thoracic/Lumbar Spine: thoracic and lumbar spine normal to inspection Skin General skin exam: no rashes or lesions noted Neuro General: patient oriented x3, gait normal, tone normal and moves all extremities Extrem General: Yes normal to inspection and Yes capillary refill normal Office Meds Prolia 60 mg/mL subcutaneous syringe Performing Provider: Chidi Murdock MD [facility] Administered by: Dmitry Amaya LPN on 01/19/25 11:53 Dose Route Admin Location Dispensed Lot Number Expiration Date [employer] 60 mg subcut 1 mL [id number] 03/16/27 34806-846-92 [employer] Total Dispensed Waste 1 mL 0 % Assessment & Plan Assessment & Plan (1) Radiation cystitis: Code(s): N30.40 - Irradiation cystitis without hematuria Category: Medical (2) Osteoporosis due to androgen therapy: Code(s): M81.8 - Other osteoporosis without current pathological fracture; T38.7X5A - Adverse effect of androgens and anabolic congeners, initial encounter Category: Medical (3) Prostate cancer metastatic to bone: Code(s): C61 - Malignant neoplasm of prostate; C79.51 - Secondary malignant neoplasm of bone Category: Medical Plan Prolia given Progressive metastatic disease to bone Consideration DINESH 177 Orders: Orders AMB Denosumab Injection Practice Supplied Today C61 - Malignant neoplasm of prostate, C79.51 - Secondary malignant neoplasm of bone, M81.8 - Other osteoporosis without current pathological fracture, T38.7X5A - Adverse effect of androgens and anabolic congeners, initial encounter Patient Instructions: This note is constructed using voice recognition software. While every effort has been made to ensure accuracy whizzer errors may have been included. Imaging studies, laboratory and physical exam results were discussed and reviewed in detail. No major barriers to patient understanding were identified. An opportunity to ask questions regarding the treatment plan was provided. All questions were answered. The patient expressed understanding and agreement with the above treatment plan. The patient is aware they should contact our office by phone for worsening of their current condition or the appearance of new urologic symptoms. Compliance is encouraged with any medications and followup testing that is ordered. It is a privilege to participate in the urologic care of your patient. If you have any questions or concerns regarding treatment for the above conditions, or other urologic issues, please do not hesitate to contact me. The office telephone contact is [phone]. Sincerely, Dr Chidi Murdock MD, [facility] - Urology Compassionate Specialist Care for the Genitourinary System Coding Level of Care Code Est Pt Level 3 (30226) Complex EM visit Add On G2211 Diagnoses Radiation cystitis N30.40 Osteoporosis due to androgen therapy M81.8; T38.7X5A Prostate cancer metastatic to bone C61; C79.51
--- OUTSIDE RECORDS SUMMARY | 2025-01-19 13:31 | XMS_ITS | Encounter Summary ---
Author Organization [facility] [place] [facility] Address [address] [facility] [address] [place] [address] Phone Care Team Providers Care Head School Custodian Name Role Phone Rajendra Edward MD Unavailable [phone] Park Leo RN Unavailable [email or web address] Jaylen Ohsea MD Unavailable Denis Gibson Unavailable [phone] Denis Gibson Primary Care Provid er Nany Rowland RN Unavailable [email or web address] Encounter Details Date Type Department Care Team (Late st Contact Info) Description 11/10/2024 Transcribe Orders [facility] Phleb Caroline 10 [facility] 2nd [place] [address] Rajendra Edward MD 20 [place] [address] Toby [email or web address] Screening for prostate cancer (Primary Dx); Prostate [...] Upcoming Encounters Date Type Department Care Team ([facility] st Contact Info) Description 01/20/2025 2:00 PM EST Office Visit [facility] at [address] [address] Rajendra Edward MD [address] [place] [phone] South@ [email or web address] 02/17/2025 9:30 AM EST Office Visit [facility] at [address] [place] [address] Rajendra Edward MD [address] [place] [phone] [email or web address] documented as of this encounter Results * (ABNORMAL) CBC and differential (11/10/2024 10:56 AM EDT) WBC 5.87 4.00 - 11.00 K/uL [facility] RBC 4.63 4.50 - 5.90 M/uL [facility] HGB 13.4(L) 13.5 - 17.5 g/dL [facility] HCT 40.7(L) 41.0 - 53.0 % [facility] PLT 264 150 - 450 K/uL [facility] MCV 87.9 80.0 - 100.0 fL [facility] MCH 28.9 27.0 - 31.0 pg [facility] MCHC 32.9 32.0 - 36.0 g/dL [facility] RDW 14.4 11.5 - 14.5 % [facility] MPV 11.9 8.4 - 12.0 fL [facility] NRBC 0.00 0.00 /100 WBCs [facility] ABSOLUTE NRBC 0.00 0.00 K/uL [facility] DIFF METHOD Auto [facility] NEUTS 61.0 48.0 - 76.0 % [facility] LYMPHS 24.0 18.0 - 41.0 % [facility] MONOS 12.6(H) 4.0 - 11.0 % [facility] EOS 1.4 0.0 - 5.0 % [facility] BASOS 0.7 0.0 - 1.5 % [facility] Granulocytes, immature (%) 0.3 0.0 - 0.9 % [facility] ABSOLUTE NEUTS 3.58 1.92 - 7.60 K/uL [facility] ABSOLUTE LYMPHS 1.41 0.72 - 4.10 K/uL [facility] ABSOLUTE MONOS 0.74 0.16 - 1.10 K/uL [facility] ABSOLUTE EOS 0.08 0.00 - 0.50 K/uL [facility] ABSOLUTE BASOS 0.04 0.00 - 0.15 K/uL [facility] Granulocytes, immature 0.02 0.00 - 0.09 K/uL [facility] Blood 11/10/2024 10:5 6 AM EDT 11/10/2024 11:02 AM EDT Rajendra Edward MD LAB BLOOD BKR ORDERABLES Final Result [facility] [address] [place] [address] * (ABNORMAL) Comprehensive metabolic panel (11/10/2024 10:56 AM EDT) SODIUM 135 133 - 146 mmol/L [facility] POTASSIUM 5.0 3.3 - 5.1 mmol/L [facility] CHLORIDE 99 96 - 108 mmol/L [facility] CO2 25 21 - 35 mmol/L [facility] BUN 21(H) 6 - 19 mg/dL [facility] CREATININE 0.90 0.5 - 1.5 mg/dL [facility] GLUCOSE 102(H) 70 - 99 mg/dL [facility] ALBUMIN 4.1 3.9 - 4.8 g/dL [facility] TOTAL PROTEIN 7.5 6.5 - 8.0 g/dL [facility] CALCIUM 9.6 8.4 - 10.3 mg/dL [facility] ALKALINE PHOSPHATASE 161(H) 39 - 117 U/L [facility] TOTAL BILIRUBIN 0.4 0.0 - 1.2 mg/dL [facility] AST 19 0 - 37 U/L [facility] ALT 32 0 - 40 U/L [facility] GLOBULIN 3.4 1 - 4.8 g/dL [facility] EGFR 86 >59 mL/min/1.7 3m2 [facility] Comment:Estimated glomerular filtration rate calculated using the CKD-EPI refit equation. ANION GAP 16 10 - 20 mmol/L [facility] Blood 11/10/2024 10:5 6 AM EDT 11/10/2024 11:02 AM EDT Rajendra Edward MD LAB BLOOD BKR ORDERABLES Final Result [address] [address] * (ABNORMAL) Testosterone, total (11/10/2024 10:56 AM EDT) TESTOSTERONE 11(L) 249 - 836 ng/dL [facility] Blood 11/10/2024 10:5 6 AM EDT 11/10/2024 11:02 AM EDT Rajendra Edward MD LAB BLOOD BKR ORDERABLES Final Result Performing Organization Address [facility] Co de Phone Number [address] [address] * (ABNORMAL) PSA (screening) (11/10/2024 10:56 AM EDT) PSA 5.46(H) 0 - 4.00 ng/mL [facility] Comment: Test Methodology Una e801 Patient results determined by assays using different manufacturers or methods may not be comparable. Blood 11/10/2024 10:5 6 AM EDT 11/10/2024 11:02 AM EDT Rajendra Edward MD LAB BLOOD BKR ORDERABLES Final Result Performing Organization Address City/[facility] Co de Phone Number [address] [address] documented in this encounter Visit Diagnoses Diagnosis Screening for prostate cancer- Primary Special screening for malignant neoplasm of prostate Prostate cancer metastatic to multiple sites documented in this encounter Care Teams Head School Custodian Relationship Specialty Start Date End Date Denis Gibson PA [address] [place] [address] PCP - General Physician Pet Adoption Counselor 07/29/23 Rajendra Edward MD [address] [place] [phone] South@ [email or web address] Primary Oncologist Hematology and Oncology 05/08/15 Park Leo RN [address] [place] [phone] [email or web address] Primary Infusion Nurse 05/08/15 Jaylen Oshea MD [address] [place] [address] [email or web address] Referring Physician 06/01/15 Denis Gibson PA [address] [place], [place] [phone] 01/04/19 Nany Rowland RN [address] [place] [phone] Paty [email or web address] Nurse Navigator 04/26/24 documented as of this encounter Additional Source Comments The information contained in this document represents components of the legal health record. It is not the complete legal health record.[facility]
--- OUTSIDE RECORDS SUMMARY | 2025-01-19 13:31 | XMS_ITS | Encounter Summary ---
Author Organization [facility] Address [address] [facility] [address] [place] [address] Phone Care Team Providers Care Barrer And Tacker Name Role Phone Rajendra Edward MD Unavailable Park Leo RN Unavailable [email or web address] Jaylen Oshea MD Unavailable Denis Gibson Unavailable [phone] Denis Gibson Primary Care Provid er Nany Rowland RN Unavailable [email or web address] Encounter Details Date Type Department Care Team (Late st Contact Info) Description 12/08/2023 Transcribe Orders [facility] Phleb Caroline 10 [facility] 2nd [place] [address] Rajendra Edward MD [address] [place] [address] Toby [email or web address] Screening for prostate cancer (Primary [...] Description 01/20/2025 2:00 PM EST Office Visit [facility] at [address] [address] Rajendra Ewdard MD [address] [place] [phone] South@ [email or web address] 02/17/2025 9:30 AM EST Office Visit [facility] at [address] [address] Rajendra Edward MD [address] [place] [phone] South@ [facility] documented as of this encounter Results * PSA (screening) (12/08/2023 10:15 AM EDT) PSA 0.49 0 - 4.00 ng/mL [facility] Comment: Test Methodology Una e801 Patient results determined by assays using different manufacturers or methods may not be comparable. Blood 12/08/2023 10:1 5 AM EDT 12/08/2023 10:32 AM EDT us Rajendra Edward MD LAB BLOOD BKR ORDERABLES Final Result [facility] [address] [place] [address] documented in this encounter Visit Diagnoses Diagnosis Screening for prostate cancer- Primary Special screening for malignant neoplasm of prostate documented in this encounter Care Teams Barrer And Tacker Relationship Specialty Start Date End Date Denis Gibson PA [address] [place] [address] PCP - General Physician P 3 Armament/Ordnance Ima Technician 07/29/23 Rajendra Edward MD [address] [place] [phone] South@ [email or web address] Primary Oncologist Hematology and Oncology 05/08/15 Park Leo, RN [address] [place] [address] [email or web address] Primary Infusion Nurse 05/08/15 Jaylen Oshea MD [address] [place] [address] [email or web address] Referring Physician 06/01/15 Denis Gibson [facility] [place] [address] 01/04/19 Nany Rowland, RN [address] [place] [phone] [email or web address] Nurse Navigator 04/26/24 documented as of this encounter Additional Source Comments The information contained in this document represents components of the legal health record. It is not the complete legal health record.[facility]
--- OUTSIDE RECORDS SUMMARY | 2025-01-19 13:31 | XMS_ITS | Encounter Summary ---
Author Organization [facility] Address [address] [facility] [address] [place] [address] Phone Care Team Providers Care Logistics Supply Officer Name Role Phone Rajendra Edward MD Unavailable Park Leo RN Unavailable [email or web address] Jaylen Oshea MD Unavailable [phone] Denis Gibson Unavailable [phone] Denis Gibson Primary Care Provid er Nany Rowland RN Unavailable [email or web address] Encounter Details Date Type Department Care Team (Late st Contact Info) Description 04/12/2024 Transcribe Orders [facility] Phleb Caroline 10 [facility] [address] [place] [address] Rajendra Edward MD [address] [place] [phone] [email or web address] Screening for prostate cancer (Primary Dx) [...] Description 01/20/2025 2:00 PM EST Office Visit [facility] at [address] [address] Rajendra Edward MD [address] [place] [phone] South@ [email or web address] 02/17/2025 9:30 AM EST Office Visit [facility] at [address] [address] Rajendra Edward MD [address] [place] [phone] South@ [facility] documented as of this encounter Results * PSA (screening) (04/12/2024 9:19 AM EST) PSA 2.27 0 - 4.00 ng/mL [facility] Comment: Test Methodology Una e801 Patient results determined by assays using different manufacturers or methods may not be comparable. Blood 04/12/2024 9:19 AM EST 04/12/2024 9:21 AM EST us Rajendra Edward MD LAB BLOOD BKR ORDERABLES Final Result Performing Organization Address City/State/[facility] Co de Phone Number [facility] [address] [place] [address] documented in this encounter Visit Diagnoses Diagnosis Screening for prostate cancer- Primary Special screening for malignant neoplasm of prostate documented in this encounter Care Teams Logistics Supply Officer Relationship Specialty Start Date End Date Denis Gibson PA [address] [place] [phone] PCP - General Physician Group Insurance Special Agent 07/29/23 Rajendra Edward MD [address] [place] [phone] South@ [facility] Primary Oncologist Hematology and Oncology 05/08/15 Park Leo, WANDER [address] [place] [phone] [email or web address] Primary Infusion Nurse 05/08/15 Jaylen Oshea MD [address] [place] [address] [email or web address] Referring Physician 06/01/15 Denis Gibson [place] [facility] [place] [address] 01/04/19 Nany Rowland RN [address] [place] [address] Paty [email or web address] Nurse Navigator 04/26/24 documented as of this encounter Additional Source Comments The information contained in this document represents components of the legal health record. It is not the complete legal health record.[facility]
--- OUTSIDE RECORDS SUMMARY | 2025-01-19 13:31 | XMS_ITS | Clinical Summary ---
Author Organization [facility] Address [address] [place] [address] Phone Care Team Providers Care Certified Procedural Coder Name Role Phone Rajendra Edward MD Unavailable [phone] Park Leo RN Unavailable [email or web address] Jaylen Oshea MD Unavailable Dilan Lopez Unavailable [phone] Dilan Lopez Primary Care Provid er Nany Rowland RN Unavailable [email or web address] Allergies Active Allergy Reactions Criticality Noted Date Comments Bicalutamide Vomiting Low 05/04/2015 Iodinated Contrast Media Hives,Rash Low 01/22/2006 Medications Ca cit-D3-mag#11-zi [id number]-bor (CALTRATE 600+D) 600 mg calcium- 800 unit-50 [...] 05/11/19 25 Active mineral oil/petrolatum,w chapincito (WHITE PETROLATUM-TAX EXAMINER AL OIL OPHT) Apply to eye. 05/14/19 [...] t be different from the original. 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 Bradycardia 01/04/2022 Prostate cancer metastatic to multiple sites Assessment & Plan (09/01/2022 4:12 PM EDT): Follows very closely and consistently with Dr Edward at [facility]. History of prostate cancer with mets [...] Encounters Date Type Department Care Team Description 01/13/2025 1:00 PM EDT - 01/13/2025 11:59 PM EDT Hospital Encounter [facility], Radiology Department Rajendra Edward MD Discharge Disposition: Home or Self Care 01/10[facility]20[facility] at [address] [address] Leslie Miguel pet scan; Care Coordination 12/29/2024 [facility] [facility] [address] [address] Crystal Cunningham PA-C Prostate cancer metastatic to multiple sites (Primary Dx) 12/22/2024 Telephone [facility] and [facility] [place] at [address] [address] Raven Russo MA imaging 12/20/2024 4:45 PM EDT Telemedicine - audio only [facility] at [address] [address] Rajendra Edward MD Prostate cancer metastatic to multiple sites (Primary Dx) 12/15/2024 10:28 AM EDT - 12/15/2024 11:59 PM EDT Hospital Encounter [facility] [address] [place] [address] Rajendra Edward MD Discharge Disposition: Home or Self Care 12/15/2024 Transcribe Orders [facility] [address] [place] [address] Rajendra Edward MD Screening for prostate cancer (Primary Dx) 11/18/2024 8:30 AM EDT Office Visit [facility] at [address] [address] Rajendra Edward MD Prostate cancer metastatic to multiple sites (Primary Dx) 11/10/2024 10:56 AM EDT - 11/10/2024 11:59 PM EDT Hospital Encounter [facility] [address] [place] [address] Rajendra Edward MD Discharge Disposition: Home or Self Care 11/10/2024 Transcribe Orders [facility] [address] [place] [address] Rajendra Edward MD Screening for prostate cancer (Primary Dx); Prostate cancer metastatic to multiple sites from Last 3 Months Immunizations Immunization Administration [...] Description 01/20/2025 2:00 PM EST Office Visit [facility] and [facility] [place] at [address] [address] Rajendra Edward MD [address] [place] [phone] [email or web address] 02/17/2025 9:30 AM EST Office Visit [facility] at [address] [address] Rajendra Edward MD [address] [place] [phone] [email or web address] Health Maintenance Due Date Last Done Comments DEPRESSION SCREENING 1955 COLOGUARD 11/04/1988 FIT TEST 11/04/1988 FOBT 11/04/1988 SIGMOIDOSCOPY 11/04/1988 VIRTUAL COLONOSCOPY 11/04/1988 COVID-19 VACCINE ( season) 2024 09/28/2024, 11/20/2023, 12/12/2022, Additional history exists BLOOD PRESSURE 05/18/2025 11/18/2024 CREATININE LEVEL 12/15/2025 12/15/2024, , 08/10/2024, Additional history exists POTASSIUM LEVEL 12/15/2025 12/15/2024, 082 09/2024, 08/10/2024, Additional history exists COLONOSCOPY 07/03/2026 06/30/2023 COLORECTAL CANCER SCREENING 07/03/2026 Adult Td,Tdap Booster 01/08/2034 01/09/2024 , 09/27/2022, 04/09/2010, Additional history exists ZOSTER VACCINES Completed 02/15/2020, 11/16, 11/29/2008, Additional history exists HEPATITIS A VACCINES Aged Out 07/15/2023, 01/29/2023, 12/17/2022 No longer eligible based on patient's age to complete this topic RSV VACCINE Completed 01/09/2024, 11/21/2022 INFLUENZA VACCINE Completed 12/31/2024, , 11/20/2023, Additional history exists PNEUMOCOCCAL VACCINES (50+ years) Completed 12/31/2024, 09/05/2014, 08/27/1999 HIB VACCINES Aged Out No longer eligi ble based on patient's age to complete this topic MENINGOCOCCAL VACCINES (ACWY) Aged Out No longer eligible based on patient's age to complete this topic MENINGOCOCCAL VACCINES (B) Aged Out N o longer eligible based on patient's age to complete this topic Medical Devices Implanted Type Area Government Instructor Device Identifier Shelf Expiration Date Model / Serial / Lot Bone Cement Antibiotic Refobacin - [id number] Implanted:Qty: 2 on 09/02/2022 by Jaison Ch MD at [facility] Left: Hip [employer] 10/13/2024 [id number] / / [id number] Hip Liner [id number] Acetabular Dm Longevity - [id number] Implanted:Qty: 1 on 09/02/2022 by Jaison Ch MD at [facility] Left: Hip [employer] 10/10/2026 [id number] / / [id number] Acetabular Shell 54mm Size F G7 Porous Plasma [place] [employer] Hole - [id number] Implanted:Qty: 1 on 09/02/2022 by Jaison Ch MD at [facility] Left: Hip [employer] 04/25/2032 [id number] / / [id number] Screw Dome 6.5x35mm G7 Aceetabular Low Profile Hip - [id number] Implanted:Qty: 1 on 09/02/2022 by Jaison Ch MD at [facility] Left: Hip [employer] 01/15/2032 [id number] / / [id number] Screw Bone 6.5x30mm Hip Dome G7 Acetabular Low Profile - [id number] Implanted:Qty: 1 on 09/02/2022 by Jaison Ch MD at [facility] Left: Hip [employer] 01/04/2032 [id number] / / [id number] Kit Preparation Cement Femoral Bone Quick Use Bx/1ea - [id number] Implanted:Qty: 1 on 09/02/2022 by Jaison Ch MD at [facility] Left: Hip [employer] 02/03/2027 [id number] / / [id number] Acetabular Liner 44mm Component Dual Mobility G7 - [id number] Implanted:Qty: 1 on 09/02/2022 by Jaison Ch MD at [facility] Left: Hip [employer] 04/30/2032 [id number] / / [id number] Hip Centralizer 15mm Implant Cemented Versys 16b Bx/1ea - [id number] Implanted:Qty: 1 on 09/02/2022 by Jaison Ch MD at [facility] Left: Hip [employer] 07/15/2027 [id number] / / [id number] Hip Stem 13mm Femoral Echo Fx [employer] Std Offset - [id number] Implanted:Qty: 1 on 09/02/2022 by Jaison Ch MD at [facility] Left: Hip [employer] 03/19/2026 [id number] / / [id number] Hip 6.0x28mm Active Articulation Dual Mobility [employer] Skirtless Modular Plus - [id number] Implanted:Qty: 1 on 09/02/2022 by Jaison Ch MD at [facility] Left: Hip [employer] 07/15/2031 [id number] / / [id number] Procedures Procedure Name Priority Date/Time Associated Diagnosis Comments NM PET CT NECK, CHEST, ABDOMEN AND PELVIS WITH CONTRAST 01/13/2025 2:22 PM EDT OUTSIDE LAB 12/22/2024 PSA (SCREENING) Routine 12/15/2024 10:29 AM EDT Screening for prostate cancer CBC AND DIFFERENTIAL Routine 12/15/2024 10:29 AM EDT Prostate cancer metastatic to multiple sites COMPREHENSIVE METABOLIC PANEL (CMP) Routine 12/15/2024 10:29 AM EDT Prostate cancer metastatic to multiple sites PSA (SCREENING) Routine 11/10/2024 10:56 AM EDT Screening for prostate cancer TESTOSTERONE, TOTAL Routine 11/10/2024 1 0:56 AM EDT Screening for prostate cancer Prostate cancer metastatic to multiple sites COMPREHENSIVE METABOLIC PANEL (CMP) Routine 11/10/2024 10:56 AM EDT Screening for prostate cancer Prostate cancer metastatic to multiple sites CBC AND DIFFERENTIAL Routine 11/10/2024 10:56 AM EDT Screening for prostate cancer Prostate cancer metastatic to multiple sites ENDOSCOPY, COLON 06/30/2023 10:1 6 AM EDT from Last 3 Months or Most Recently Relevant to Health Maintenance Results * NM PET CT Neck Chest Abdomen and Pelvis With Contrast (01/13/2025 2:22 PM EDT) Anatomical Region Laterality Modality Neck, Chest, Abdomen, Pelvis Nuc [facility] Medicine 01/13/2025 2:22 PM EDT Narrative 01/13/2025 2:22 PM EDT [facility] [address] [place] [address] PET Report Signed Patient: Candelario Brock MR# [id number] : 1945 Acct:[id number] Age/Sex: 79 / M ADM Date: 01/13/25 Loc: [facility] Attending Dr: Rajendra Edward MD Ordering Physician: Rajendra Edward Date of Service: 01/13/25 Procedure(s): PET CT PSMA skull-thigh restag Accession Number(s): [id number] cc: Rajendra Edward~ PET CT PSMA skull-thigh restag HISTORY: Prostate cancer C61, 124[address] Metastatic prostate cancer. Rising PSA levels. No further history provided. COMPARISON: None TECHNIQUE: 8.7 mCi PSMA - Posluma injected IV, and approximately 1 hour later, imaging was obtained. A low dose 3.[address] scan was acquired for attenuation correction. PET and CT in-line fusion was performed for anatomical correlation of the functional information obtained from PET imaging. FINDINGS: NECK: There is physiologic distribution of radiotracer throughout this region. CHEST: There is physiologic distribution of radiotracer throughout this region. ABDOMEN/PELVIS: There is physiologic distribution of radiotracer throughout this region. There are brachytherapy seeds in the prostate gland. SKELETAL: There are numerable PSMA avid sclerotic lesions throughout the osseous skeleton consistent with metastatic disease. Multiple small PSMA avid lesions involving the vertebral bodies and posterior elements at C3, T1, T3 T9, T10 and T12. Multiple lesions throughout both iliac bones, the sacrum and bilateral ischial tuberosities. There is a small lesion within the right femoral head. Multiple PSMA avid rib lesions, the largest in the third anterior right rib where SUV max of 52 is demonstrated. There is a nondisplaced healing fracture involving the left humeral midshaft with low-level avidity and SUV max of only 6.6. ADDITIONAL CT FINDINGS: Moderate atherosclerotic plaque and coronary artery calcification. Colonic diverticulosis. Left hip prosthesis. IMPRESSION: No evidence for locally recurrent prostate cancer status post previous brachytherapy. Innumerable PSMA avid osseous lesions as described, consistent with metastatic disease. No PSMA avid soft tissue abnormalities. Healing left humeral midshaft fracture. No definite associated sclerosis to indicate pathologic fracture. PSMA avidity much lower than the above noted sclerotic lesions. Clinical and radiographic evaluation is recommended. Dictated By: Darinel Sharma MD Signed By: <Electronically signed by Darinel Sharma MD in OV> 01/13/25 1434 Procedure Note Darinel Sharma MD - 01/13/2025 [facility] [address] [place] [address] PET Report Signed Patient: Candelario Brock MR# [id number] : 4Acct:[id number] Age/Sex: 79 / M ADMDate: 01/13/25 Loc: [facility] Attending Dr: Rajendra Edward MD Ordering Physician: Rajendra Edward Date of Service: 01/13/25 Procedure(s): PET CT PSMA skull-thigh restag Accession Number(s): [id number] cc: Rajendra Edward~ PET CT PSMA skull-thigh restag HISTORY: Prostate cancer C61, [address] Metastatic prostate cancer. Rising PSA levels. No further history provided. COMPARISON: None TECHNIQUE: 8.7 mCi PSMA - Posluma injected IV, and approximately 1 hour later,imaging was obtained. A low dose 3.[address] scan was acquired for attenuationcorrection. PET and CT in-line fusion was performed for anatomical correlation of the functional information obtained from PET imaging. FINDINGS: NECK: There is physiologic distribution of radiotracer throughout this region. CHEST: There is physiologic distribution of radiotracer throughout this region. ABDOMEN/PELVIS: There is physiologic distribution of radiotracer throughout this region. There are brachytherapy seeds in the prostate gland. SKELETAL: There are numerable PSMA avid sclerotic lesions throughout the osseousskeleton consistent with metastatic disease. Multiple small PSMA avid lesionsinvolving the vertebral bodies and posterior elements at C3, T1, T3 T9, T10 and T12. Multiple lesions throughout both iliac bones, the sacrum and bilateralischial tuberosities. There is a small lesion within the right femoral head.Multiple PSMA avid rib lesions, the largest in the third anterior right rib whereSUV max of 52 is demonstrated. There is a nondisplaced healing fracture involving the left humeralmidshaft with low-level avidity and SUV max of only 6.6. ADDITIONAL CT FINDINGS: Moderate atherosclerotic plaque and coronary artery calcification. Colonic diverticulosis. Left hip prosthesis. IMPRESSION: No evidence for locally recurrent prostate cancer status post previous brachytherapy. Innumerable PSMA avid osseous lesions as described, consistent withmetastatic disease. No PSMA avid soft tissue abnormalities. Healing left humeral midshaft fracture. No definite associated sclerosis to indicate pathologic fracture. PSMA avidity much lower than the above noted sclerotic lesions. Clinical and radiographic evaluation is recommended. Workstation:[email or web address] Dictated By: Darinel Sharma MD Signed By: <Electronically signed by Darinel Sharma MD in OV> 01/13/25 1434 us Rajendra Edward MD IMG NM PET Final Res ult * Outside Lab (12/22/2024) us Scanning Interface Provider LAB BLOOD BKR ORDERA BLES Final Result * Comprehensive metabolic panel (12/15/2024 10:29 AM EDT) Only the most recent of2 resultswithin the time period is included. SODIUM 137 133 - 146 mmol/L [facility] POTASSIUM 4.4 3.3 - 5.1 mmol/L [facility] CHLORIDE 101 96 - 108 mmol/L [facility] CO2 25 21 - 35 mmol/L [facility] BUN 14 6 - 19 mg/dL [facility] CREATININE 0.90 0.5 - 1.5 mg/dL [facility] GLUCOSE 85 70 - 99 mg/dL [facility] ALBUMIN 4.2 3.9 - 4.8 g/dL [facility] TOTAL PROTEIN 7.3 6.5 - 8.0 g/dL [facility] CALCIUM 9.2 8.4 - 10.3 mg/dL [facility] ALKALINE PHOSPHATASE 115 39 - 117 U/L [facility] TOTAL BILIRUBIN 0.3 0.0 - 1.2 mg/dL [facility] AST 20 0 - 37 U/L [facility] ALT 13 0 - 40 U/L [facility] GLOBULIN 3.1 1 - 4.8 g/dL [facility] EGFR 86 >59 mL/min/1.7 3m2 [facility] Comment:Estimated glomerular filtration rate calculated using the CKD-EPI refit equation. ANION GAP 15 10 - 20 mmol/L [facility] Blood 12/15/2024 10:2 9 AM EDT 12/15/2024 10:40 AM EDT Rajendra Edward MD LAB BLOOD BKR ORDERABLES Final Result [address] [address] * (ABNORMAL) CBC and differential (12/15/2024 10:29 AM EDT) Only the most recent of2 resultswithin the time period is included. WBC 7.12 4.00 - 11.00 K/uL [facility] RBC 4.69 4.50 - 5.90 M/uL [facility] HGB 13.0(L) 13.5 - 17.5 g/dL [facility] HCT 41.2 41.0 - 53.0 % [facility] PLT 180 150 - 450 K/uL [facility] MCV 87.8 80.0 - 100.0 fL [facility] MCH 27.7 27.0 - 31.0 pg [facility] MCHC 31.6(L) 32.0 - 36.0 g/dL [facility] RDW 14.5 11.5 - 14.5 % [facility] MPV 11.9 8.4 - 12.0 fL [facility] NRBC 0.00 0.00 /100 WBCs [facility] ABSOLUTE NRBC 0.00 0.00 K/uL [facility] DIFF METHOD Auto [facility] NEUTS 59.8 48.0 - 76.0 % [facility] LYMPHS 26.8 18.0 - 41.0 % [facility] MONOS 11.2(H) 4.0 - 11.0 % [facility] EOS 1.4 0.0 - 5.0 % [facility] BASOS 0.7 0.0 - 1.5 % [facility] Granulocytes, immature (%) 0.1 0.0 - 0.9 % [facility] ABSOLUTE NEUTS 4.25 1.92 - 7.60 K/uL [facility] ABSOLUTE LYMPHS 1.91 0.72 - 4.10 K/uL [facility] ABSOLUTE MONOS 0.80 0.16 - 1.10 K/uL [facility] ABSOLUTE EOS 0.10 0.00 - 0.50 K/uL [facility] ABSOLUTE BASOS 0.05 0.00 - 0.15 K/uL [facility] Granulocytes, immature 0.01 0.00 - 0.09 K/uL [facility] Blood 12/15/2024 10:2 9 AM EDT 12/15/2024 10:40 AM EDT Rajendra Edward MD LAB BLOOD BKR ORDERABLES Final Result Performing Organization Address City/[facility]/ZIP Co de Phone Number [address] [address] * (ABNORMAL) PSA (screening) (12/15/2024 10:29 AM EDT) Only the most recent of2 resultswithin the time period is included. PSA 6.04(H) 0 - 4.00 ng/mL [facility] Comment: Test Methodology Una e801 Patient results determined by assays using different manufacturers or methods may not be comparable. Blood 12/15/2024 10:2 9 AM EDT 12/15/2024 10:41 AM EDT Rajendra Edward MD LAB BLOOD BKR ORDERABLES Final Result Performing Organization Address [facility]/ZIP Co de Phone Number [address] [address] * (ABNORMAL) Testosterone, total (11/10/2024 10:56 AM EDT) TESTOSTERONE 11(L) 249 - 836 ng/dL [facility] Blood 11/10/2024 10:5 6 AM EDT 11/10/2024 11:02 AM EDT Rajendra Edward MD LAB BLOOD BKR ORDERABLES Final Result Performing Organization Address City/[facility]/ZIP Co de Phone Number [address] [address] * ENDOSCOPY, COLON (06/30/2023 10:16 AM EDT) Narrative Transcriptions Andreea Gonzalez MD, MPH - 06/30/2023 10:16 AM EDT [facility] Patient Name: Candelario Brock Attending MD:: ANDREEA GONZALEZ MD, Procedure Date: 06/30/2023 10:16 AM Date of : 1945 Age: 77 Admit Type: Outpatient Gender: Male Room: [place] [address] Referring MD: Dilan Lopez MD Exam Type: Colonoscopy Indications: High risk colon cancer surveillance: Personalhistory of colonic polyps Medications: Monitored Anesthesia Care Procedure: Informed consent was obtained from the patientafter discussion of the indications, limitations, alternatives, benefits, and risks of the procedure. Risks specifically discussed include but are not limited to medication reactions, missed lesions, bleeding, perforation, or the need for emergent surgery. Throughout the procedure, the patient's blood pressure, pulse, end-tidal CO2, and oxygensaturations were monitored continuously. The Olympus adult variable colonoscope [id number] #2 was introduced through the anus and advanced to the cecum, identified by appendiceal orifice andileocecal valve. The colonoscopy was performed without difficulty. The patient tolerated the procedurewell. The quality of the bowel preparation was evaluated using the BBPS ([place] Bowel Preparation Scale)with scores of: Right Colon = 3, Transverse Colon = 3and Left Colon = 3 (entire mucosa seen well with no residual staining, small fragments of stool oropaque liquid). The total BBPS score equals 9. Theileocecal valve, appendiceal orifice, and rectum were photographed. Complications: No immediate complications. Findings: The perianal and digital rectal examinations were normal. Two sessile polyps were found in the ascendingcolon. The polyps were 8 to 10 mm in size. These polypswere removed with a cold snare. Resection and retrieval were complete. To close a defect after polypectomy, one hemostatic clip was successfully placed (MR conditional). There was no bleeding at the end ofthe procedure. Two sessile polyps were found in the transversecolon. The polyps were 4 to 8 mm in size. These polypswere removed with a cold snare. Resection and retrieval were complete. A 5 mm polyp was found in the rectum. The polyp was sessile. The polyp was removed with a cold snare. Resection and retrieval were complete. Multiple small and large-mouthed diverticula were found in the left colon. Non-bleeding internal hemorrhoids were found during retroflexion. The hemorrhoids were medium-sized. Impression: - Two 8 to 10 mm polyps in the ascending colon, removed with a cold snare. Resected and retrieved.One clip placed. - Two 4 to 8 mm polyps in the transverse colon, removed with a cold snare. Resected andretrieved. - One 5 mm polyp in the rectum, removed with a cold snare. Resected and retrieved. - Diverticulosis in the left colon. - Non-bleeding internal hemorrhoids. Recommendation: - Repeat colonoscopy for surveillance based on pathology results. LIkely 3 years. - Resume eliquis [address] Andreea Gonzaelz ANDREEA GONZALEZ MD 06/30/2023 10:56:40 AM This report has been signed electronically. Number of Addenda: 0 Note Initiated On: 06/30/2023 10:16 AM Procedure Code(s): --- Professional --- 36291, Colonoscopy, flexible; with removal of tumor(s), polyp(s), or other lesion(s) by snare technique --- Technical --- 08927, Colonoscopy, flexible; with removal of tumor(s), polyp(s), or other lesion(s) by snare technique Diagnosis Code(s): --- Professional --- Z86.010, Personal history of colonic polyps D12.2, Benign neoplasm of ascending colon D12.3, Benign neoplasm of transverse colon (hepatic flexure or splenic flexure) D12.8, Benign neoplasm of rectum K64.8, Other hemorrhoids K57.30, Diverticulosis of large intestine without perforation or abscess without bleeding --- Technical --- Z86.010, Personal history of colonic polyps D12.2, Benign neoplasm of ascending colon D12.3, Benign neoplasm of transverse colon (hepatic flexure or splenic flexure) D12.8, Benign neoplasm of rectum K64.8, Other hemorrhoids K57.30, Diverticulosis of large intestine without perforation or abscess without bleeding CPT copyright 2021 [employer]. All rights reserved. The codes documented in this report are preliminary and upon power plant electrician reviewmay be revised to meet current compliance requirements. Procedure Date: 06/30/2023 10:16:[address] [place] [address] Dilan KRAUSE GI PROCEDURE ORDERAB LES Final Result from Last 3 Months or Most Recently Relevant to Health Maintenance Insurance MEDICARE PART A & B BLUE CROSS MEDEX SUPPLEMENT [facility] MEDICARE PART A & B Member Subscriber Plan / Payer (Ef fective 2008-Present) Name:Candelario Brock Member ID:[id number] Relation to Subscriber:Self Name:Candelario Brock Subscriber ID:[id number] Payer ID:[id number] Group ID:Not on file Type:Medicare Address: [facility] [employer] [facility] [address] [place] [address] [employer] CROSS MEDEX SUPPLEMENT [facility] MEDICARE PART A & B [employer] MEDEX SUPPLEMENT [facility] MEDICARE PART A & B [employer] MEDEX SUPPLEMENT [facility] MEDICARE PART A & B BLUE [employer]OSS MEDEX SUPPLEMENT Member Subscriber Plan / Payer (Ef fective 2008-Present) Name:Candelario Brock Relation to Subscriber:Self Name:Candelario Brock Payer ID:[id number] (NAIC) Type:Indemnity Address: [address] MEDICARE PART A & B BLUE CROSS MEDEX SUPPLEMENT Member Subscriber Plan / Payer (Ef fective 2008-Present) Name:Candelario Brock Relation to Subscriber:Self Name:Candelario Brock Payer ID:[id number] (NAIC) Type:Indemnity Address: [address] MEDICARE PART A & B [employer] MEDEX SUPPLEMENT MEDICARE PART A & B [employer] MEDEX SUPPLEMENT MEDICARE [place] [id number] [place] [employer] SUPPLEMENT Advance Directives For more information, please contact: [phone] (9AM - 5PM [facility], Friday-Friday) Documents on File Type Date Recorded Patient Tool Grinder Expl anation Healthcare Proxy 09/06/2022 11:48 AM Healthcare Proxy 04/07/2015 2:36 PM * Full Code (Latest Code Status on File) Date Activated Date Inactivated Comments 08/30/2022 2:09 PM Question Answer Comments Code Status Confirmed With: PatientFamily Healthcare Agents on File Name Relationship Healthcare Agent Relationship Communication Sophie Brock Spouse .Primary Health Care Agent (Proxy form on file) [email or web address] Care Teams Certified Procedural Coder Relationship Specialty Start Date End Date Dilan Lopez PA [address] [place] [address] PCP - General Physician Gas Treater 07/29/23 Rajendra Edward MD [address] [place] [phone] South@ [email or web address] Primary Oncologist Hematology and Oncology 05/08/15 Park Leo RN [address] [place] [phone] [email or web address] Primary Infusion Nurse 05/08/15 Jaylen Oshea MD [address] [place] [address] [email or web address] Referring Physician 06/01/15 Dilan Lopez PA [address] [place] [address] 01/04/19 Nany Rowland RN [address] [place] [address] Paty [email or web address] Nurse Navigator 04/26/24 Additional Source Comments The information contained in this document represents components of the legal health record. It is not the complete legal health record.[facility]
--- OUTSIDE RECORDS SUMMARY | 2025-01-19 13:31 | XMS_ITS | Encounter Summary ---
Author Organization [facility] Address [address] [facility] [address] [place] [address] Phone Care Team Providers Care Adult Live In Caregiver Name Role Phone Rajendra Edward MD Unavailable Park Leo RN Unavailable [email or web address] Jaylen Oshea MD Unavailable Denis Gibson Unavailable [phone] Denis Gibson Primary Care Provid er Denis Gibson Primary Care [facility] er Nany Rowland RN Unavailable [email or web address], [facility] Encounter Details Date Type Department Care Team (Late st Contact Info) Description 09/02/2022 Procedure Pass OR Admitting Dept - Virtual Department [address] [place] [address] Social History Tobacco Use Types Packs/Day Years [...] Description 01/20/2025 2:00 PM EST Office Visit [facility] at [address] [address] Rajendra Edward MD [address] [place] [phone] South@ [facility] 02/17/2025 9:30 AM EST Office Visit [facility] at [address] [address] Rajendra Edward MD [address] [place] [phone] South@ [facility] documented as of this encounter Visit Diagnoses Not on filedocumented in this encounter Care Teams Adult Live In Caregiver Relationship Specialty Start Date End Date Denis Gibson [facility] [place] [address] PCP - General 12/07/20 07/28/23 Denis Gibson PA [address] [place] [address] PCP - General Physician Dump Truck Operator 07/29/23 Rajendra Edward MD [address] [place] [phone] South@ [facility] Primary Oncologist Hematology and Oncology 05/08/15 Park Leo, RN [address] [place] [phone] [email or web address] Primary Infusion Nurse 05/08/15 Jaylen Oshea MD [address] [place] [address] [email or web address] Referring Physician 06/01/15 Denis Gibson PA [address] [place] [address] 01/04/19 Nany Rowland RN [address] [place] [address] Paty [email or web address] Nurse Navigator 04/26/24 documented as of this encounter Additional Source Comments The information contained in this document represents components of the legal health record. It is not the complete legal health record.[facility]
--- OUTSIDE RECORDS SUMMARY | 2025-01-19 13:31 | XMS_ITS | Encounter Summary ---
Author Organization [facility] Address [address] [facility] [address] [place] [address] Phone Care Team Providers Care Trial Examiner Name Role Phone Rajendra Edward MD Unavailable Park Leo RN Unavailable [email or web address] Jaylen Oshea MD Unavailable Denis Gibson Unavailable [phone]- [phone] Denis Gibson Primary Care Provid er Nany Rowland RN Unavailable [email or web address] Encounter Details Date Type Department Care Team (Late st Contact Info) Description 12/04/2023 Transcribe Orders [facility] Phleb Caroline [address] [facility] 2[address] [place] [address] Rajendra Edward MD [address] [place] [phone] Toby [email or web address] Prostate cancer metastatic to multiple sites (Primary [...] Description 01/20/2025 2:00 PM EST Office Visit [facility] at [address] [address] Rajendra Edward MD [address] [place] [phone] South@ [facility] 02/17/2025 9:30 AM EST Office Visit [facility] at [address] [address] Rajendra Edward MD [address] [place] [phone] South@ [facility] documented as of this encounter Visit Diagnoses Diagnosis Prostate cancer metastatic to multiple sites- Primary documented in this encounter Care Teams Trial Examiner Relationship Specialty Start Date End Date Denis Gibson PA [address] [place] [address] PCP - General Physician Lines Tender 07/29/23 Rajendra Edward MD [address] [place] [phone] South@ [facility] Primary Oncologist Hematology and Oncology 05/08/15 Park Leo RN [address] [place] [phone] [email or web address] Primary Infusion Nurse 05/08/15 Jayeln Oshea MD [address] [place] [address] [email or web address] Referring Physician 06/01/15 Denis Gibson PA [address] [place] [address] 01/04/19 Nany Rowland RN [address] [place] [address] Paty [email or web address] Nurse Navigator 04/26/24 documented as of this encounter Additional Source Comments The information contained in this document represents components of the legal health record. It is not the complete legal health record.[facility]
--- OUTSIDE RECORDS SUMMARY | 2025-01-19 13:31 | XMS_ITS ---
Author Organization [facility] Address [address] [facility] [address] [place] [address] Phone Care Team Providers Care Asphalt Surface Heater Operator Name Role Phone Rajendra Edward MD Unavailable Park Loe RN Unavailable [email or web address] Jaylen Oshea MD Unavailable Denis Lopez Unavailable [phone] Denis Lopez Primary Care Provid er Nany Rowland RN Unavailable [email or web address] Active Problems Patient Care Coordination No te Formatting of this note migh t be different from the original. 04/26/2024 [facility] Problem Noted Date Diagnosed Date Hx of [...] 07, 2020 Entered By: DENIS LOPEZ Comment: [employer] Product ICM model M301 serial [id number] may,. Bradycardia 01/04/2022 Prostate cancer metastatic to multiple sites Assessment & Plan (09/01/2022 4:12 PM EDT): Follows very closely and consistently with Dr Edward at [facility]. History of prostate cancer with mets [...]
--- OUTSIDE RECORDS SUMMARY | 2025-01-19 13:32 | XMS_ITS | Encounter Summary ---
Author Organization [facility] Address [address] [place] [address] Phone Care Team Providers Care Computer Network Support Specialist Name Role Phone Rajendra Edward MD Unavailable Park Leo RN Unavailable [email or web address] Jaylen Oshea MD Unavailable [phone] Denis Gibson Unavailable [phone]- [phone] Denis Gibson Primary Care Provid er Nany Rowland RN Unavailable [email or web address] Encounter Details Date Type Department Care Team (Late st Contact Info) Description 08/13/2023 Transcribe Orders Virtual Department 30 [place] [address] System, Provider Not In, PhD Partners [address] [address] Leg weakness, bilateral (Primary Dx) Social History [...] Description 01/20/2025 2:00 PM EST Office [facility] at [address] [address] Rajendra Edward MD [address] [place] [phone] South@ [facility] 02/17/2025 9:30 AM EST Office Visit [facility] at [address] [address] Rajendra Edward MD [address] [place] [phone] [email or web address]@ [facility] documented as of this encounter Visit Diagnoses Diagnosis Leg weakness, bilateral- Primary Muscle weakness (generalized) documented in this encounter Care Teams Computer Network Support Specialist Relationship Specialty Start Date End Date Denis Gibson PA [address] [place] [address] PCP - General Physician Commercial Lending Vice President 07/29/23 Rajendra Edward MD [address] [place] [phone] South@ [facility] Primary Oncologist Hematology and Oncology 05/08/15 Park Leo, WANDER [address] [place] [phone] MAYRA@[email or web address] Primary Infusion Nurse 05/08/15 Jaylen Oshea MD [address] [place] [address] [email or web address] Referring Physician 06/01/15 Denis Gibson PA [address] [place] [address] 01/04/19 Nany Rowland RN [address] [place] [address] Paty [email or web address] Nurse Navigator 04/26/24 documented as of this encounter Additional Source Comments The information contained in this document represents components of the legal health record. It is not the complete legal health record.[facility]
--- OUTSIDE RECORDS SUMMARY | 2025-01-19 13:32 | XMS_ITS | Encounter Summary ---
Author Organization [facility] Address [address] [facility] [address] [place] [address] Phone Care Team Providers Care Director Of Rehabilitation And Wellness Name Role Phone Rajendra Edward MD Unavailable Park Leo RN Unavailable [email or web address] Jaylen Oshea MD Unavailable Denis Gibson Unavailable [phone] Denis Gibson Primary Care Provid er Denis Gibson Primary Care [facility] er Nany Rowland RN Unavailable [email or web address] Reason for Referral * MRI/CAT Scan - Closed Specialty Diagnoses / Procedures Referred By Contac t Referred To Contact Radiology Diagnoses Spinal stenosis, lumbar region with neurogenic claudication Procedures MRI Lumbar Spine System, Provider Not In, [place] [address] Referral ID Status Reason Start Date Expiration Date Visits Re quested Visits Authorized [id number] Closed 07/18/2023 09/14/2024 1 1 Encounter Details Date Type Department Care Team (Late st Contact Info) Description 07/18/2023 Transcribe Orders Virtual Department [address] [place] [address] System, Provider Not In, PhD Partners [address] [address] Spinal stenosis, lumbar region with neurogenic claudication [...] Description 01/20/2025 2:00 PM EST Office Visit [facility] [address] [address] Rajendra Edward MD [address] [place] [phone] South@ [facility] 02/17/2025 9:30 AM EST Office Visit [facility] [address] [address] Rajendra Edward MD [address] [place] [phone] South@ [facility] documented as of this encounter [...] claudication documented in this encounter Care Teams Director Of Rehabilitation And Wellness Relationship Specialty Start Date End Date Denis Gibson PA [address] [place] [address] PCP - General 12/07/20 07/28/23 Denis Gibson PA [address] [place] [phone] PCP - General Physician Seo Consultant 07/29/23 Rajendra Edward MD [address] [place] [phone] South@ [facility] Primary Oncologist Hematology and Oncology 05/08/15 Park Leo, WANDER [address] [place] [phone] [email or web address] Primary Infusion Nurse 05/08/15 Jaylen Oshea MD [address] [place] [address] [email or web address] Referring Physician 06/01/15 Denis Gibson PA [address] [place] [address] 01/04/19 Nany Rowland, WANDER [address] [place] [address] Paty [email or web address] Nurse Navigator 04/26/24 documented as of this encounter Additional Source Comments The information contained in this document represents components of the legal health record. It is not the complete legal health record.[facility]
--- OUTSIDE RECORDS SUMMARY | 2025-01-19 13:32 | XMS_ITS | Encounter Summary ---
Author Organization [facility] Address [address] [facility] [address] [place] [address] Phone Care Team Providers Care Production Supervisor Trainee Name Role Phone Rajendra Edward MD Unavailable Park Leo RN Unavailable [email or web address] Jaylen Oshea MD Unavailable Denis Gibson Unavailable [phone] Denis Gibson Primary Care Provid er Denis Gibson Primary Care Provid er Nany Rowland RN Unavailable [email or web address] Encounter Details Date Type Department Care Team (Late st Contact Info) Description 07/06/2022 Procedure Pass [facility] Ct Scan - [facility] [address] [place] [address] Social History Tobacco Use Types Packs/Day Years [...] 3:03 PM EDT Khadijah Taylor RN * [place] Suicide Severity Rating Scale (Screener/Recent Self-Report) Question [...] Description 01/20/2025 2:00 PM EST Office Visit [facility] [place] at [address] [address] Rajendra Edward MD [address] [place] [phone] South@ [facility] 02/17/2025 9:30 AM EST Office Visit [facility] at [address] [address] Rajendra Edward MD [address] [place] [phone] South@ [facility] documented as of this encounter Visit Diagnoses Not on filedocumented in this encounter Additional Health Concerns Infection Onset Date Last Indicated Resolved Time CoV-Risk 07/06/2022 07/06/2022 07/06/2022 3:45 PM EDT COVID-19 07/06/2022 07/06/2022 07/27/2022 1:21 AM EDT documented as of this encounter Care Teams Production Supervisor Trainee Relationship Specialty Start Date End Date Denis Gibson PA [address] [place] [address] PCP - General 12/07/20 07/28/23 Denis Gibson PA [address] [place] [address] PCP - General Physician Med Spa Manager 07/29/23 Rajendra Edward MD [address] [place] [phone] South@ [facility] Primary Oncologist Hematology and Oncology 05/08/15 Park Leo, WANDER [address] [place] [phone] [email or web address] Primary Infusion Nurse 05/08/15 Jaylen Oshea MD [address] [place] [address] [email or web address] Referring Physician 06/01/15 Denis Gibson PA [address] [place] [address] 01/04/19 Nany Rowland RN [address] [place] [address] Paty [email or web address] Nurse Navigator 04/26/24 documented as of this encounter Additional Source Comments The information contained in this document represents components of the legal health record. It is not the complete legal health record.[facility]
--- OUTSIDE RECORDS SUMMARY | 2025-01-19 13:32 | XMS_ITS | Encounter Summary ---
Author Organization [facility] Address [address] [place] [address] Phone Care Team Providers Care Power Distributor Name Role Phone Rajendra Edward MD Unavailable Park Leo RN Unavailable [email or web address] Jaylen Oshea MD Unavailable [phone] Denis Gibson Unavailable [phone] Denis Gibson Primary Care Provid er Denis Gibson Primary Care [facility] er Nany Rowland RN Unavailable [email or web address] Encounter Details Date Type Department Care Team (Late st Contact Info) Description 06/30/2023 Procedure Pass [facility] Endoscopy Admitting Dept Virtual Department [address] [place] [address] Social History Tobacco Use Types Packs/Day Years [...] Description 01/20/2025 2:00 PM EST Office Visit [facility] at [address] [address] Rajendra Edward MD [address] [place] [phone] South@ [facility] 02/17/2025 9:30 AM EST Office Visit [facility] at [address] [address] Rajendra Edward MD [address] [place] [phone] South@ [facility] documented as of this encounter Visit Diagnoses Not on filedocumented in this encounter Care Teams Power Distributor Relationship Specialty Start Date End Date Denis Gibson PA [address] [place] [address] PCP - General 12/07/20 07/28/23 Denis Gibson PA [address] [place] [address] PCP - General Physician Marketing Technologist 07/29/23 Rajendra Edward MD [address] [place] [phone] South@ [facility] Primary Oncologist Hematology and Oncology 05/08/15 Park Leo, RN [address] [place] [phone] [email or web address] Primary Infusion Nurse 05/08/15 Jaylen Oshea MD [address] [place] [address] [email or web address] Referring Physician 06/01/15 Denis Gibson PA [address] [place] [address] 01/04/19 Nany Rowland, WANDER [address] [place] [address] Paty [email or web address] Nurse Navigator 04/26/24 documented as of this encounter Additional Source Comments The information contained in this document represents components of the legal health record. It is not the complete legal health record.[facility]
--- OUTSIDE RECORDS SUMMARY | 2025-01-19 13:32 | XMS_ITS | Encounter Summary ---
Author Organization [facility] Address [address] [facility] [address] [place] [address] Phone Care Team Providers Care Shop Clerk Name Role Phone Rajendra Edward MD Unavailable Park Leo RN Unavailable [email or web address] Jaylen Oshea MD Unavailable Denis Gibson Unavailable [phone] Denis Gibson Primary Care Provid er Denis Gibson Primary Care Provid er Nany Rowland RN Unavailable [email or web address] Encounter Details Date Type Department Care Team (Late st Contact Info) Description 08/31/2022 Procedure Pass [facility], Ct Scan - [facility] [address] [place] [address] Social History Tobacco Use Types Packs/Day Years [...] Description 01/20/2025 2:00 PM EST Office Visit [facility] at [address] [address] Rajendra Edward MD [address] [place] [phone] South@ [facility] 02/17/2025 9:30 AM EST Office Visit [facility] at [address] [address] Rajendra Edward MD [address] [place] [phone] South@ [facility] documented as of this encounter Visit Diagnoses Not on filedocumented in this encounter Care Teams Shop Clerk Relationship Specialty Start Date End Date Denis Gibson [facility] [place] [address] PCP - General 12/07/20 07/28/23 Denis Gibson PA [address] [place] [address] PCP - General Physician Music Store Manager 07/29/23 Rajendra Edward MD [address] [place] [phone] South@ [facility] Primary Oncologist Hematology and Oncology 05/08/15 Park Leo, WANDER [address] [place] [phone] [email or web address] Primary Infusion Nurse 05/08/15 Jaylen Oshea MD [address] [place] [address] [email or web address] Referring Physician 06/01/15 Denis Gibson PA [address] [place] [address] 01/04/19 Nany Rowland RN [address] [place] [address] Paty [email or web address] Nurse Navigator 04/26/24 documented as of this encounter Additional Source Comments The information contained in this document represents components of the legal health record. It is not the complete legal health record.[facility]
--- OUTSIDE RECORDS SUMMARY | 2025-01-19 13:32 | XMS_ITS | Encounter Summary ---
Author Organization [facility] Address [address] [facility] [address] [place] [address] Phone Care Team Providers Care Threader Name Role Phone Rajendra Edward MD Unavailable Park Leo RN Unavailable [email or web address] Jaylen Oshea MD Unavailable Denis Gibson Unavailable [phone] Denis Gibson Primary Care Provid er Denis Gibson Primary Care Provid er Nany Rowland RN Unavailable [email or web address] Encounter Details Date Type Department Care Team (Late st Contact Info) Description 08/30/2022 Procedure Pass [facility], Ct Scan - [facility] [address] [place] [address] Social History Tobacco Use Types Packs/Day Years [...] 4:32 AM EDT Miriam Rivas RN * [place] Suicide Severity Rating Scale (Screener/Recent Self-Report) Question [...] Description 01/20/2025 2:00 PM EST Office Visit [facility] at [address] [address] Rajendra Edward MD [address] [place] [phone] South@ [facility] 02/17/2025 9:30 AM EST Office Visit [facility] at [address] [address] Rajendra Edward MD [address] [place] [phone] South@ [facility] documented as of this encounter Visit Diagnoses Not on filedocumented in this encounter Care Teams Threader Relationship Specialty Start Date End Date Denis Gibson PA [address] [place] [address] PCP - General 12/07/20 07/28/23 Denis Gibson PA [address] [place] [address] PCP - General Physician Power Technician 07/29/23 Rajendra Edward MD [address] [place] [phone] South@ [facility] Primary Oncologist Hematology and Oncology 05/08/15 Park Leo RN [address] [place] [phone] [email or web address] Primary Infusion Nurse 05/08/15 Jaylen Oshea MD [address] [place] [address] [email or web address] Referring Physician 06/01/15 Denis Gibson PA [address] [place] [address] 01/04/19 Nany Rowland RN [address] [place] [address] Paty [email or web address] Nurse Navigator 04/26/24 documented as of this encounter Additional Source Comments The information contained in this document represents components of the legal health record. It is not the complete legal health record.[facility]
--- OUTSIDE RECORDS SUMMARY | 2025-01-19 13:33 | XMS_ITS | Encounter Summary ---
Author Organization [facility] Address [address] [facility] [address] [place] [address] Phone Care Team Providers Care Content Analyst Name Role Phone Rajendra Edward MD Unavailable Park Leo RN Unavailable [email or web address] Jaylen Oshea MD Unavailable Denis Gibson Unavailable [phone] Denis Gibson Primary Care Provid er Denis Gibson Primary Care Provid er Nany Rowland RN Unavailable [email or web address] Encounter Details Date Type Department Care Team (Late st Contact Info) Description 08/30/2022 Procedure Pass [facility], Ct Scan - [facility] [address] [place] [address] Social History Tobacco Use Types Packs/Day Years [...] 4:32 AM EDT Miriam Rivas RN * [place] Suicide Severity Rating Scale (Screener/Recent Self-Report) Question [...] Description 01/20/2025 2:00 PM EST Office Visit [facility] at [address] [address] Rajendra Edward MD [address] [place] [phone] South@ [facility] 02/17/2025 9:30 AM EST Office Visit [facility] at [address] [address] Rajendra Edward MD [address] [place] [phone] South@ [facility] documented as of this encounter Visit Diagnoses Not on filedocumented in this encounter Care Teams Content Analyst Relationship Specialty Start Date End Date Denis Gibson PA [address] [place] [address] PCP - General 12/07/20 07/28/23 Denis Gibson PA [address] [place] [address] PCP - General Physician Data Developer 07/29/23 Rajendra Edward MD [address] [place] [phone] South@ [facility] Primary Oncologist Hematology and Oncology 05/08/15 Park Leo RN [address] [place] [phone] [email or web address] Primary Infusion Nurse 05/08/15 Jaylen Oshea MD [address] [place] [address] [email or web address] Referring Physician 06/01/15 Denis Gibson PA [address] [place] [address] 01/04/19 Nany Rowland RN [address] [place] [address] Paty [email or web address] Nurse Navigator 04/26/24 documented as of this encounter Additional Source Comments The information contained in this document represents components of the legal health record. It is not the complete legal health record.[facility]
--- OUTSIDE RECORDS SUMMARY | 2025-01-19 13:33 | XMS_ITS | Encounter Summary ---
Author Organization [facility] Address [address] [facility] [address] [place] [address] Phone Care Team Providers Care Director Of Retail Name Role Phone Rajendra Edward MD Unavailable Park Leo RN Unavailable [email or web address] Jaylen Oshea MD Unavailable [phone] Denis Gibson Unavailable [phone] Denis Gibson Primary Care [facility] er Denis Gibson Primary Care [facility] er Nany Rowland RN Unavailable [email or web address] Reason for Referral * MRI/CAT Scan - Closed Specialty Diagnoses / Procedures Referred By Jase dow Referred To Contact Radiology Diagnoses Cervicalgia Procedures MRI Cervical Spine Denis Gibson PA [address] [place] [address] Phone: tel: fax: Referral ID Status Reason Start Date Expiration Date Visits Re quested Visits Authorized [id number] Closed 01/23/2022 04/17/2022 1 1 Encounter Details Date Type Department Care Team (Latest Contact Info) Description 01/23/2022 Transcribe Orders Virtual Department [address] [place] [address] Denis Gibson PA [address] [place] [address] Cervicalgia (Primary Dx) Social History Tobacco Use [...] Description 01/20/2025 2:00 PM EST Office Visit [facility] at [address] [address] Rajendra Edward MD [address] [place] [phone] South@ [facility] 02/17/2025 9:30 AM EST Office Visit [facility] at [address] [address] Rajendra Edward MD [address] [place] [phone] South@ [facility] documented as of this encounter Results [...] stenosis or focal cord signalabnormality. Denis KRAUSE G MR XSPECIALTY Fi nal Result documented in this encounter Visit Diagnoses Diagnosis Cervicalgia- Primary Cervicalgia documented in this encounter Additional Health Concerns Infection Onset Date Last Indicated Resolved Time CoV-Risk 07/06/2022 07/06/2022 07/06/2022 3:45 PM EDT COVID-19 07/06/2022 07/06/2022 07/27/2022 1:21 AM EDT documented as of this encounter Care Teams Director Of Retail Relationship Specialty Start Date End Date Denis Gibson PA [address] [place] [address] PCP - General 12/07/20 07/28/23 Denis Gibson PA [address] [place] [address] PCP - General Physician Warehouse Delivery Manager 07/29/23 Rajendra Edward MD [address] [place] [phone] South@ [facility] Primary Oncologist Hematology and Oncology 05/08/15 Park Leo RN [address] [place] [phone] [email or web address] Primary Infusion Nurse 05/08/15 Jaylen Oshea MD [address] [place] [address] [email or web address] Referring Physician 06/01/15 Denis Gibson PA [address] [place] [address] 01/04/19 Nany Rowland RN [address] [place] [address] Paty [email or web address] Nurse Navigator 04/26/24 documented as of this encounter Additional Source Comments The information contained in this document represents components of the legal health record. It is not the complete legal health record.[facility]
--- OUTSIDE RECORDS SUMMARY | 2025-01-19 13:33 | XMS_ITS | Encounter Summary ---
Author Organization [facility] Address [address] [facility] [address] [place] [address] Phone Care Team Providers Care Bridge Ironworker Helper Name Role Phone Rajendra Edward MD Unavailable Park Leo RN Unavailable [email or web address] Jaylen Oshea MD Unavailable Denis Gibson Unavailable [phone] Denis Gibson Primary Care Provid er Denis Gibson Primary Care Provid er Nany Rowland RN Unavailable [email or web address] Encounter Details Date Type Department Care Team (Late st Contact Info) Description 02/24/2023 Transcribe Orders [facility] [address] [facility] 2nd [place] [address] Rajendra Edward MD [address] [place] [phone] [email or web address] Screening for prostate cancer (Primary Dx) [...] Description 01/20/2025 2:00 PM EST Office Visit [facility] at [address] [address] Rajendra Edward MD [address] [place] [phone] South@ [facility] 02/17/2025 9:30 AM EST Office Visit [facility] at [address] [address] Rajendra Edward MD [address] [place] [phone] South@ [facility] documented as of this encounter Results * PSA (screening) (02/24/2023 9:27 AM EST) PSA 0.12 0 - 4.00 ng/mL [facility] Comment: Test Methodology Una e801 Patient results determined by assays using different manufacturers or methods may not be comparable. Blood 02/24/2023 9:27 AM EST 02/24/2023 9:33 AM EST us Rajendra Edward MD LAB BLOOD BKR ORDERABLES Final Result [facility] [address] [place] [address] documented in this encounter Visit Diagnoses Diagnosis Screening for prostate cancer- Primary Special screening for malignant neoplasm of prostate documented in this encounter Care Teams Bridge Ironworker Helper Relationship Specialty Start Date End Date Denis Gibson PA [address] [place] [address] PCP - General 12/07/20 07/28/23 Denis Gibson PA [address] [place] [phone] PCP - General Physician Feed Inspection Supervisor 07/29/23 Rajendra Edward MD [address] [place] [phone] South@ [facility] Primary Oncologist Hematology and Oncology 05/08/15 Park Leo, WANDER [address] [place] [phone] [email or web address] Primary Infusion Nurse 05/08/15 Jaylen Oshea MD [address] [place] [address] Referring Physician 06/01/15 Denis Gibson PA [address] [place] [address] 01/04/19 Nany Rowland, RN [address] [place] [phone] [email or web address] Nurse Navigator 04/26/24 documented as of this encounter Additional Source Comments The information contained in this document represents components of the legal health record. It is not the complete legal health record.[facility]
--- OUTSIDE RECORDS SUMMARY | 2025-01-19 13:33 | XMS_ITS | Encounter Summary ---
Author Organization [facility] Address [address] [facility] [address] [place] [address] Phone Care Team Providers Care Barrel Endshake Adjuster Name Role Phone Rajendra Edward MD Unavailable Park Leo RN Unavailable [email or web address] Jaylen Oshea MD Unavailable [phone] Denis Gibson Unavailable [phone] Denis Gibson Primary Care Provid er Denis Gibson Primary Care [facility] er Nany Rowland RN Unavailable [email or web address] Encounter Details Date Type Department Care Team (Late st Contact Info) Description 07/18/2023 Procedure Pass [facility], [facility] - [address] [place] [address] Social History Tobacco Use Types Packs/Day Years [...] Description 01/20/2025 2:00 PM EST Office Visit [facility] at [address] [address] Rajendra Edward MD [address] [place] [phone] South@ [facility] 02/17/2025 9:30 AM EST Office Visit [facility] at [address] [address] Rajendra Edward MD [address] [place] [phone] South@ [facility] documented as of this encounter Visit Diagnoses Not on filedocumented in this encounter Care Teams Barrel Endshake Adjuster Relationship Specialty Start Date End Date Denis Gibson PA [address] [place] [address] PCP - General 12/07/20 07/28/23 Denis Gibson PA [address] [place] [phone] PCP - General Physician Leather Goods Maker 07/29/23 Rajendra Edward MD [address] [place] [phone] South@ [facility] Primary Oncologist Hematology and Oncology 05/08/15 aPrk Leo, RN [address] [place] [phone] [email or web address] Primary Infusion Nurse 05/08/15 Jaylen Oshea MD [address] [place] [address] [email or web address] Referring Physician 06/01/15 Denis Gibson PA [address] [place] [address] 01/04/19 Nany Rowland, WANDER [address] [place] [address] Paty [email or web address] Nurse Navigator 04/26/24 documented as of this encounter Additional Source Comments The information contained in this document represents components of the legal health record. It is not the complete legal health record.[facility]
--- OUTSIDE RECORDS SUMMARY | 2025-01-19 13:33 | XMS_ITS | Encounter Summary ---
Author Organization [facility] Address [address] [facility] [address] [place] [address] Phone Care Team Providers Care Transformation Consultant Name Role Phone Rajendra Edward MD Unavailable [phone] Park Leo RN Unavailable [email or web address] Jaylen Oshea MD Unavailable [phone] Denis Gibson Unavailable [phone] Denis Gibson Primary Care Provid er Nany Rowland RN Unavailable [email or web address] Reason for Referral * MRI/CAT Scan - Closed Specialty Diagnoses / Procedures Referred By Jase t Referred To Contact Radiology Diagnoses Prostate cancer metastatic to multiple sites Procedures NM PET CT Prostate Cancer Imaging Rajendra Edward MD [address] [place] [phone] Phone: tel: fax: mailto:South @[email or web address] Referral ID Status Reason Start Date Expiration Date Visits Re quested Visits Authorized [id number] Closed 11/18/2024 11/18/2025 1 1 Encounter Details Date Type Department Care Team (Late st Contact Info) Description 12/29/2024 Orders Only [facility] [place] at [facility] [address] 2nd [place] [address] Crystal Cunningham PA-C [address] [place] [phone] [email or web address] Prostate cancer metastatic to multiple [...] Description 01/20/2025 2:00 PM EST Office Visit [facility] at [address] [address] Rajendra Edward MD [address] [place] [phone] South@ [facility] 02/17/2025 9:30 AM EST Office Visit [facility] at [address] [address] Rajendra Edward MD [address] [place] [phone] South@ [facility] Scheduled Orders Name Type Priority Associated Diagnoses Orde r Schedule NM PET CT Prostate Cancer Imaging Imaging Routine Prostate cancer metastatic to multiple sites Expected: 01/05/2025 (Approximate), Expires: 03/31/2025 documented as of this encounter Visit Diagnoses Diagnosis Prostate cancer metastatic to multiple sites- Primary documented in this encounter Care Teams Transformation Consultant Relationship Specialty Start Date End Date Denis Gibson PA [facility] [place] [address] PCP - General Physician Shirt Operator 07/29/23 Rajendra Edward MD [address] [place] [phone] South@ [facility] Primary Oncologist Hematology and Oncology 05/08/15 Park Leo, WANDER [address] [place] [phone] [email or web address] [email or web address] AT [facility] Primary Infusion Nurse 05/08/15 Jaylen Oshea MD [address] [place] [address] [email or web address] Referring Physician 06/01/15 Denis Gibson PA [address] [place] [address] 01/04/19 Nany Rowland, WANDER [address] [place] [address] Paty [email or web address] Nurse Navigator 04/26/24 documented as of this encounter Additional Source Comments The information contained in this document represents components of the legal health record. It is not the complete legal health record.[facility]
--- OUTSIDE RECORDS SUMMARY | 2025-01-19 13:34 | XMS_ITS | Encounter Summary ---
Author Organization [facility] Address [address] [facility] [address] [place] [address] Phone Care Team Providers Care Cinder Dump Crane Operator Name Role Phone Rajendra Edward MD Unavailable [phone] Park Leo RN Unavailable [email or web address] Jaylen Oshea MD Unavailable Denis Gibson Unavailable [phone] Denis Gibson Primary Care Provid er Nany Rowland RN Unavailable [email or web address] Encounter Details Date Type Department Care Team (Late st Contact Info) Description 08/10/2024 Transcribe Orders [facility] Phle[facility] [address] 2nd [place] [address] Celina Carlton PA-C [address], [address]. [address] [place] [address] Social History Tobacco Use Types Packs/Day Years [...] 01/20/2025 2:00 PM EST Office Visit [facility] at [address] [address] Rajendra Edward MD [address] [place] [phone] South@ [facility] 02/17/2025 9:30 AM EST Office Visit [facility] at [address] [address] Rajendra Edward MD [address] [place] [phone] South@ [facility] documented as of this encounter Visit Diagnoses Not on filedocumented in this encounter Care Teams Cinder Dump Crane Operator Relationship Specialty Start Date End Date Denis Gibson PA [facility] [place] [address] PCP - General Physician Fish Receiver 07/29/23 Rajendra Edward MD [address] [place] [phone] South@ [facility] Primary Oncologist Hematology and Oncology 05/08/15 Park Leo RN [address] [place] [phone] [email or web address] Primary Infusion Nurse 05/08/15 Jaylen Oshea MD [address] [place] [address] [email or web address] Referring Physician 06/01/15 Denis Gibson PA [address] [place] [address] 01/04/19 Nany Rowland RN [address] [place] [address] Paty [email or web address] Nurse Navigator 04/26/24 documented as of this encounter Additional Source Comments The information contained in this document represents components of the legal health record. It is not the complete legal health record.[facility]
--- OUTSIDE RECORDS SUMMARY | 2025-01-19 13:34 | XMS_ITS | Encounter Summary ---
Author Organization [facility] Address [address] [place] [address] Phone Care Team Providers Care Agricultural Equipment Sales Manager Name Role Phone Rajendra Edward MD Unavailable [phone] Park Leo RN Unavailable [email or web address] Jaylen Oshea MD Unavailable Denis Gibson Unavailable [phone]- [phone] Denis Gibson Primary Care Provid er Nany Rowland RN Unavailable [email or web address] Encounter Details Date Type Department Care Team (Late st Contact Info) Description 06/09/2024 Transcribe Orders [facility] Phleb Caroline 10 [facility] 2nd [place] [address] Rajendra Edward MD [address] [place] [address] Toby [email or web address] Screening for prostate cancer (Primary Dx); [...] Description 01/20/2025 2:00 PM EST Office [facility] at [address] [address] Rajendra Edward MD [address] [place] [phone] South@ [facility] 02/17/2025 9:30 AM EST Office [facility] at [address] [place] [address] Rajendra Edward MD [address] [place] [address] South@ [facility] documented as of this encounter Results * (ABNORMAL) Testosterone, total (06/09/2024 10:17 AM EDT) TESTOSTERONE 9(L) 249 - 836 ng/dL [facility] Blood 06/09/2024 10:1 7 AM EDT 06/09/2024 10:27 AM EDT us Rajendra Edward MD LAB BLOOD BKR ORDERABLES Final Result Performing Organization Address City/State/[facility] Co de Phone Number [address] [address] * (ABNORMAL) Comprehensive metabolic panel (06/09/2024 10:17 AM EDT) SODIUM 139 133 - 146 mmol/L [facility] POTASSIUM 4.5 3.3 - 5.1 mmol/L [facility] CHLORIDE 102 96 - 108 mmol/L [facility] CO2 27 21 - 35 mmol/L [facility] BUN 21(H) 6 - 19 mg/dL [facility] CREATININE 1.00 0.5 - 1.5 mg/dL [facility] GLUCOSE 85 70 - 99 mg/dL [facility] ALBUMIN 4.1 3.9 - 4.8 g/dL [facility] TOTAL PROTEIN 7.4 6.5 - 8.0 g/dL [facility] CALCIUM 9.6 8.4 - 10.3 mg/dL [facility] ALKALINE PHOSPHATASE 69 39 - 117 U/L [facility] TOTAL BILIRUBIN 0.3 0.0 - 1.2 mg/dL [facility] AST 23 0 - 37 U/L [facility] ALT 14 0 - 40 U/L [facility] GLOBULIN 3.3 1 - 4.8 g/dL [facility] EGFR 76 >59 mL/min/1.7 3m2 [facility] Comment:Estimated glomerular filtration rate calculated using the CKD-EPI refit equation. [place] GAP 15 10 - 20 mmol/L [facility] Blood 06/09/2024 10:1 7 AM EDT 06/09/2024 10:27 AM EDT us Rajendra Edward MD LAB BLOOD BKR ORDERABLES Final Result [address] [address] * (ABNORMAL) CBC and differential (06/09/2024 10:17 AM EDT) WBC 7.23 4.00 - 11.00 K/uL [facility] RBC 4.53 4.50 - 5.90 M/uL [facility] HGB 12.6(L) 13.5 - 17.5 g/dL [facility] HCT 39.2(L) 41.0 - 53.0 % [facility] PLT 178 150 - 450 K/uL [facility] MCV 86.5 80.0 - 100.0 fL [facility] MCH 27.8 27.0 - 31.0 pg [facility] MCHC 32.1 32.0 - 36.0 g/dL [facility] RDW 14.2 11.5 - 14.5 % [facility] MPV 11.9 8.4 - 12.0 fL [facility] NRBC 0.00 0.00 /100 WBCs [facility] ABSOLUTE NRBC 0.00 0.00 K/uL [facility] DIFF METHOD Auto [facility] NEUTS 61.3 48.0 - 76.0 % [facility] LYMPHS 26.0 18.0 - 41.0 % [facility] MONOS 10.5 4.0 - 11.0 % [facility] EOS 1.5 0.0 - 5.0 % [facility] BASOS 0.6 0.0 - 1.5 % [facility] Granulocytes, immature (%) 0.1 0.0 - 0.9 % [facility] ABSOLUTE NEUTS 4.43 1.92 - 7.60 K/uL [facility] ABSOLUTE LYMPHS 1.88 0.72 - 4.10 K/uL [facility] ABSOLUTE MONOS 0.76 0.16 - 1.10 K/uL [facility] ABSOLUTE EOS 0.11 0.00 - 0.50 K/uL [facility] ABSOLUTE BASOS 0.04 0.00 - 0.15 K/uL [facility] Granulocytes, immature 0.01 0.00 - 0.09 K/uL [facility] Blood 06/09/2024 10:1 7 AM EDT 06/09/2024 10:27 AM EDT Rajendra Edward MD LAB BLOOD BKR ORDERABLES Final Result Performing Organization Address City/[facility]/ZIP Co de Phone Number [address] [address] * PSA (screening) (06/09/2024 10:17 AM EDT) PSA 1.68 0 - 4.00 ng/mL [facility] Comment: Test Methodology Una e801 Patient results determined by assays using different manufacturers or methods may not be comparable. Blood 06/09/2024 10:1 7 AM EDT 06/09/2024 10:26 AM EDT Rajendra Edward MD LAB BLOOD BKR ORDERABLES Final Result Performing Organization Address City/[facility]/ZIP Co de Phone Number [address] [address] documented in this encounter Visit Diagnoses Diagnosis Screening for prostate cancer- Primary Special screening for malignant neoplasm of prostate Prostate cancer Malignant neoplasm of prostate documented in this encounter Care Teams Agricultural Equipment Sales Manager Relationship Specialty Start Date End Date Denis Gibson PA [address] [place] [address] PCP - General Physician Observer Helper 07/29/23 Rajendra Edward MD [address] [place] [phone] South@ [facility] Primary Oncologist Hematology and Oncology 05/08/15 Park Leo, RN [address] [place] [phone] [email or web address] Primary Infusion Nurse 05/08/15 Jaylen Oshea MD [address] [place] [address] [email or web address] Referring Physician 06/01/15 Denis Gibson PA [address] [place] [address] 01/04/19 Nany Rowland, WANDER [address] [place] [address] Paty [email or web address] Nurse Navigator 04/26/24 documented as of this encounter Additional Source Comments The information contained in this document represents components of the legal health record. It is not the complete legal health record.[facility]
--- OUTSIDE RECORDS SUMMARY | 2025-01-19 13:34 | XMS_ITS | Encounter Summary ---
Author Organization [facility] Address [address] [place] [address] Phone Care Team Providers Care Automatic Spinning Lathe Operator Name Role Phone Jaylen Oshea MD Primary Care Provider [phone] Rajendra Edward MD Unavailable Park Leo RN Unavailable [email or web address] Jaylen Oshea MD Unavailable Denis Gibson Unavailable Denis Gibson Primary Care Provid er Denis Gibson Primary Care Provid er Nany Rowland RN Unavailable [email or web address] Encounter Details Date Type Department Care Team (Late st Contact Info) Description 10/02/2017 Procedure Pass [facility], Radiology Department Social History Tobacco Use [...] Description 01/20/2025 2:00 PM EST Office Visit [facility] at [address] [address] Rajendra Edward MD [address] [place] [phone] South@ [facility] 02/17/2025 9:30 AM EST Office Visit [facility] at [address] [address] Rajendra Edward MD [address] [place] [phone] South@ [facility] documented as of this encounter Visit Diagnoses Not on filedocumented in this encounter Additional Health Concerns Infection Onset Date Last Indicated Resolved Time CoV-Risk 07/06/2022 07/06/2022 07/06/2022 3:45 PM EDT COVID-19 07/06/2022 07/06/2022 07/27/2022 1:21 AM EDT documented as of this encounter Care Teams Automatic Spinning Lathe Operator Relationship Specialty Start Date End Date Jaylen Oshea MD [address] [place] [phone] [email or web address] PCP - General 04/03/15 12/06/20 Denis Gibson PA [address] [place] [phone] PCP - General 12/07/20 07/28/23 Denis Gibson PA [address] [place] [address] PCP - General Physician Manager Latin 07/29/23 Rajendra Edward MD [address] [place] [phone] South@ [email or web address] Primary Oncologist Hematology and Oncology 05/08/15 Park Leo, WANDER [address] [place] [phone] [email or web address] Primary Infusion Nurse 05/08/15 Jaylen Oshea MD [address] [place] [address] [email or web address] Referring Physician 06/01/15 Denis Gibson PA [address] [place] [phone] 01/04/19 Nany Rowland RN [address] [place] [phone] Paty [email or web address] Nurse Navigator 04/26/24 documented as of this encounter Additional Source Comments The information contained in this document represents components of the legal health record. It is not the complete legal health record.[facility]
--- OUTSIDE RECORDS SUMMARY | 2025-01-19 13:34 | XMS_ITS | Encounter Summary ---
Author Organization [facility] Address [address] [place] [address] Phone Care Team Providers Care Head Coach Name Role Phone Rajendra Edward MD Unavailable Park Leo RN Unavailable [email or web address] Jaylen Oshea MD Unavailable [phone] Denis Gibson Unavailable [phone] Denis Gibson Primary Care Provid er Denis Gibson Primary Care Provid er Nany Rowland RN Unavailable [email or web address] Encounter Details Date Type Department Care Team (Late st Contact Info) Description 05/13/2022 Transcribe Orders [facility] Phleb Caroline 10 [facility] 2nd [place] [address] Rajendra Edward MD [address] [place] [phone] Toby [email or web address] Screening for prostate cancer Social History [...] Description 01/20/2025 2:00 PM EST Office Visit [facility] at [address] [address] Rajendra Edward MD [address] [place] [phone] South@ [facility] 02/17/2025 9:30 AM EST Office Visit [facility] at [address] [address] Rajendra Edward MD [address] [place] [phone] South@ [facility] documented as of this encounter Results * PSA (screening) (05/13/2022 9:24 AM EST) PSA 0.05 0 - 4.00 ng/mL [facility] Blood 05/13/2022 9:24 AM EST 05/13/2022 9:26 AM EST us Rajendra Edward MD LAB BLOOD BKR ORDERABLES Final Result [facility] [address] [place] [address] documented in this encounter Visit Diagnoses Diagnosis Screening for prostate cancer Special screening for malignant neoplasm of prostate documented in this encounter Additional Health Concerns Infection Onset Date Last Indicated Resolved Time CoV-Risk 07/06/2022 07/06/2022 07/06/2022 3:45 PM EDT COVID-19 07/06/2022 07/06/202207/2707/27/2022 1:21 AM EDT documented as of this encounter Care Teams Head Coach Relationship Specialty Start Date End Date Denis Gibson PA [address] [place] [address] PCP - General 12/07/20 07/28/23 Denis Gibson PA [address] [place] [address] PCP - General Physician Global Marketing Specialist 07/29/23 aRjendra Edward MD [address] [place] [phone] South@ [email or web address] Primary Oncologist Hematology and Oncology 05/08/15 Park Leo, WANDER [address] [place] [phone] [email or web address] Primary Infusion Nurse 05/08/15 Jaylen Oshea MD [address] [place] [address] [email or web address] Referring Physician 06/01/15 Denis Gibson PA [address] [place] [address] 01/04/19 Nany Rowland RN [address] [place] [phone] Paty [email or web address] Nurse Navigator 04/26/24 documented as of this encounter Additional Source Comments The information contained in this document represents components of the legal health record. It is not the complete legal health record.[facility]
--- OUTSIDE RECORDS SUMMARY | 2025-01-19 13:34 | XMS_ITS | Encounter Summary ---
Author Organization [facility] Address [address] [facility] [address] [place] [address] Phone Care Team Providers Care Spray Painter Helper Name Role Phone Rajendra Edward MD Unavailable Park Leo RN Unavailable [email or web address] Jaylen Oshea MD Unavailable Denis Gibson Unavailable [phone] Denis Gibson Primary Care Provid er Denis Gibson Primary Care [facility] er Nany Rowland RN Unavailable [email or web address] Encounter Details Date Type Department Care Team (Late st Contact Info) Description 01/23/2022 Procedure Pass [facility], [address] [address] Social History Tobacco Use Types Packs/Day Years [...] Description 01/20/2025 2:00 PM EST Office Visit [facility] at [address] [address] Rajendra Edward MD [address] [place] [phone] South@ [facility] 02/17/2025 9:30 AM EST Office Visit [facility] at [address] [address] Rajendra Edward MD [address] [place] [phone] South@ [facility] documented as of this encounter Visit Diagnoses Not on filedocumented in this encounter Additional Health Concerns Infection Onset Date Last Indicated Resolved Time CoV-Risk 07/06/2022 07/06/2022 07/06/2022 3:45 PM EDT COVID-19 07/06/2022 07/06/2022 07/27/2022 1:21 AM EDT documented as of this encounter Care Teams Spray Painter Helper Relationship Specialty Start Date End Date Denis Gibson PA [address] [place] [phone] PCP - General 12/07/20 07/28/23 Denis Gibson PA [address] [place] [phone] PCP - General Physician Thrasher Feeder 07/29/23 Rajendra Edward MD [address] [place] [phone] South@ [facility] Primary Oncologist Hematology and Oncology 05/08/15 Park Leo, RN [address] [place] [phone] [email or web address] Primary Infusion Nurse 05/08/15 Jaylen Oshea MD [address] [place] [address] [email or web address] Referring Physician 06/01/15 Denis Gibson PA [address] [place] [address] 01/04/19 Nany Rowland, WANDER [address] [place] [phone] Paty [email or web address] Nurse Navigator 04/26/24 documented as of this encounter Additional Source Comments The information contained in this document represents components of the legal health record. It is not the complete legal health record.[facility]
--- OUTSIDE RECORDS SUMMARY | 2025-01-19 13:34 | XMS_ITS | Encounter Summary ---
Author Organization [facility] Address [address] [facility] [address] [place] [address] Phone Care Team Providers Care Mirror Framer Name Role Phone Jaylen Oshea MD Primary Care Provider Rajendra Edward MD Unavailable Park Leo RN Unavailable [email or web address] Jaylen Oshea MD Unavailable Denis Gibson Unavailable Denis Gibson Primary Care Provid er Denis Gibson Primary Care Provid er Nany Rowland RN Unavailable [email or web address] Encounter Details Date Type Department Care Team (Late st Contact Info) Description 10/02/2017 Procedure Pass [facility], Radiology Department Social History Tobacco Use [...] 01/20/2025 2:00 PM EST Office Visit [facility] at [address] [address] Rajendra Edward MD [address] [place] [phone] South@ [facility] 02/17/2025 9:30 AM EST Office Visit [facility] at [address] [address] Rajendra Edward MD [address] [place] [phone] South@ [facility] documented as of this encounter Visit Diagnoses Not on filedocumented in this encounter Additional Health Concerns Infection Onset Date Last Indicated Resolved Time CoV-Risk 07/06/2022 07/06/2022 07/06/2022 3:45 PM EDT COVID-19 07/06/2022 07/06/2022 07/27/2022 1:21 AM EDT documented as of this encounter Care Teams Mirror Framer Relationship Specialty Start Date End Date Jaylen Oshea MD [address] [place] [phone] [email or web address] PCP - General 04/03/15 12/06/20 Denis Gibson PA [address] [place] [phone] PCP - General 12/07/20 07/28/23 Denis Gibson PA [address] [place] [address] PCP - General Physician Coining Press Operator 07/29/23 Rajendra Edward MD [address] [place] [phone] South@ [facility] Primary Oncologist Hematology and Oncology 05/08/15 Park Leo, WANDER [address] [place] [phone] [email or web address] Primary Infusion Nurse 05/08/15 Jaylen Oshea MD [address] [place] [address] [email or web address] Referring Physician 06/01/15 Denis Gibson PA [address] [place] [phone] 01/04/19 Nany Rowland RN [address] [place] [phone] Paty [email or web address] Nurse Navigator 04/26/24 documented as of this encounter Additional Source Comments The information contained in this document represents components of the legal health record. It is not the complete legal health record.[facility]
--- OUTSIDE RECORDS SUMMARY | 2025-01-19 13:34 | XMS_ITS | Encounter Summary ---
Author Organization [facility] Address [address] [facility] [address] [place] [address] Phone Care Team Providers Care Spiral Weaver Name Role Phone Rajendra Edward MD Unavailable [phone] Park Leo RN Unavailable [email or web address] Jaylen Oshea MD Unavailable Denis Gibson Unavailable [phone] Denis Gibson Primary Care Provid er Denis Gibson Primary Care Provid er Nany Rowland RN Unavailable [email or web address] Encounter Details Date Type Department Care Team (Late st Contact Info) Description 01/09/2022 Transcribe Orders [facility] Phleb Caroline 10 [facility] [address]nd [place] [address] Rajendra Edward MD [address] [place] [phone] [email or web address] [email or web address] Screening for prostate cancer Social History [...] Description 01/20/2025 2:00 PM EST Office Visit [facility] at [address] [address] Rajendra Edward MD [address] [place] [phone] South@ [facility] 02/17/2025 9:30 AM EST Office Visit [facility] at [address] [address] Rajendra Edward MD [address] [place] [phone] South@ [facility] documented as of this encounter Results * PSA (screening) (01/09/2022 10:15 AM EDT) PSA 0.03 0 - 4.00 ng/mL [facility] Blood 01/09/2022 10:1 5 AM EDT 01/09/2022 10:27 AM EDT us Rajendra Edward MD LAB BLOOD BKR ORDERABLES Final Result [facility] [address] [place] [address] documented in this encounter Visit Diagnoses Diagnosis Screening for prostate cancer Special screening for malignant neoplasm of prostate documented in this encounter Additional Health Concerns Infection Onset Date Last Indicated Resolved Time CoV-Risk 07/06/2022 07/06/2022 07/06/2022 3:45 PM EDT COVID-19 07/06/2022 07/06/2022 07/27/2022 1:21 AM EDT documented as of this encounter Care Teams Spiral Weaver Relationship Specialty Start Date End Date Denis Gibson PA [address] [place] [address] PCP - General 12/07/20 07/28/23 Denis Gibson PA [address] [place] [address] PCP - General Physician Precast Worker 07/29/23 Rajendra Edward MD [address] [place] [phone] South@ [facility] Primary Oncologist Hematology and Oncology 05/08/15 Park Leo, WANDER [address] [place] [phone] [email or web address] Primary Infusion Nurse 05/08/15 Jaylen Oshea MD [address] [place] [address] [email or web address] Referring Physician 06/01/15 Denis Gibson PA [address] [place] [address] 01/04/19 Nany Rowland RN [address] [place] [phone] Paty [email or web address] Nurse Navigator 04/26/24 documented as of this encounter Additional Source Comments The information contained in this document represents components of the legal health record. It is not the complete legal health record.[facility]
== END 2025-01-19 11:58 | disposition home or self-care (01) ==
PROVIDERS: PCP Physician Assistant; Visit Provider Urology
DX: N30.40 Irradiation cystitis without hematuria (principal); M81.8 Other osteoporosis without current pathological fracture; T38.7X5A Adverse effect of androgens and anabolic congeners, initial encounter; C61 Malignant neoplasm of prostate; C79.51 Secondary malignant neoplasm of bone
CPT/HCPCS: 99213; G2211

== ENCOUNTER → 2025-01-19 11:10 | Outpatient (BNVA) | payer MEDICARE, SELFPAY | PROVIDERS: Visit Provider Urology | DX: C79.51 Secondary malignant neoplasm of bone (principal); C61 Malignant neoplasm of prostate; M81.8 Other osteoporosis without current pathological fracture; T38.7X5A Adverse effect of androgens and anabolic congeners, initial encounter; N30.40 Irradiation cystitis without hematuria | CPT/HCPCS: 96372; 99212; J0897 ==

== ENCOUNTER 2025-02-25 08:51 | Outpatient (REF) | payer MEDICARE, SELFPAY ==
--- NOTE | ~2025-02-25 | XR_ITS ---
EXAMINATION: XR SHOULDER, LEFT CLINICAL INFORMATION: M25.519 - Pain in unspecified shoulder COMPARISON: 10/22/2024. TECHNIQUE: Two views of the left shoulder. FINDINGS: Normal bone mineralization. No fracture, dislocation, or suspicious bone lesion. Normal alignment. The glenohumeral joint demonstrates mild to moderate osteoarthrosis. There is superior subluxation of the humeral head upon the glenoid. The AC joint demonstrates mild to moderate undersurface spurring. There is a type II acromion. No undersurface spurring. There is severe loss of subacromial space suggesting rotator cuff tearing. There is a healed mid humeral diaphyseal fracture present. XR/XR shoulder LT min 2V IMPRESSION: 1. 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 2. Superior subluxation of the humeral head upon the glenoid with loss of the subacromial space, suggesting full-thickness rotator cuff tear. 3. Healed fracture of the mid diaphysis of the humerus. Electronically signed by: Reilly Cochran MD 02/25/2025 12:01 PM [facility]
== END 2025-02-25 08:52 ==
LOC: HO.HOSX 08:51
PROVIDERS: Visit Provider Physician Assistant
DX: Z47.89 Encounter for other orthopedic aftercare (principal); S42.302D Unspecified fracture of shaft of humerus, left arm, subsequent encounter for fracture with routine healing; M67.912 Unspecified disorder of synovium and tendon, left shoulder; X58.XXXD Exposure to other specified factors, subsequent encounter
CPT/HCPCS: 73030

== ENCOUNTER 2025-02-25 11:48 | Outpatient (AMB) | payer MEDICARE, SELFPAY ==
--- NOTE | 2025-02-25 12:05 | MHC.OFFVIS ---
Intake Visit Reasons: OV - left humerus fx, DOI 10/29/24 Intake Note: Candelario is a 79 year old right hand dominant male who presents today with a sling for a follow up appointment for his left humerus fracture, DOI 10/29/24. At his last appointment he was advised to continue physical therapy on range of motion and may progress to gentle strengthening. Patient reports he is still having some tenderness in his elbow since the injury. Allergies bicalutamide Allergy (Mild, Verified 02/25/25 12:05) Unknown Iodinated Contrast Media Allergy (Mild, Verified 02/25/25 12:05) Unknown HPI Comments Details: The patient is an 79-year-old male presenting for a follow-up on his left humeral shaft fracture. The fracture occurred on October 29, 2024, and was managed with a thermomolded brace and sling, which were worn until January 11, 2025. The patient followed instructions to refrain from weight-bearing for three months and has been continuing physical therapy aimed at improving range of motion, with a plan to move to gentle strength training. He has a past medical history of rotator cuff dysfunction, causing occasional left shoulder discomfort, weakness and limited range of motion managed with lidocaine patches and a prescription medication. - Imaging: X-rays obtained in the office today reveal healed left midshaft humerus fracture. Findings also suggest chronic rotator cuff dysfunction, with the humeral head positioned superiorly. [facility] Medical History Weak urinary stream Nocturia Metastatic malignant neoplasm to prostate Microscopic hematuria Social History Alcohol intake: never Patient Tobacco Use Status: Never used Tobacco Current occupational status: retired Current occupation: right hand dominant Review of Systems Narrative Negative other than what was stated in the HPI. Physical Exam Exam Exam: Physical Exam Musculoskeletal: Examination of the left shoulder reveals limited active abduction to 80 degrees. passive range of motion to 120 degrees due to rotator cuff dysfunction. He is able to reach the side of his head actively. NVI. Assessment & Plan Assessment & Plan (1) Left humeral fracture: Code(s): S42.302A - Unspecified fracture of shaft of humerus, left arm, initial encounter for closed fracture Category: Medical (2) Dysfunction of left rotator cuff: Code(s): M67.912 - Unspecified disorder of synovium and tendon, left shoulder Category: Medical Plan 1. Left Humeral Shaft Fracture Follow-up imaging reveals well-healed fracture with substantial bone formation. The patient is permitted to resume driving and is released from weight-bearing restrictions. We discussed the minor limitations in shoulder function attributed to pre-existing rotator cuff issues that likely progressed after the most recent injury. I advised the continuation of physical therapy to aid in strengthening, emphasizing patient autonomy in contacting me for future consultations regarding any new pain or concerns. The patient was informed that further follow-up is unwarranted unless symptoms dictate otherwise. 2. Left Rotator Cuff Dysfunction The existing rotator cuff dysfunction will be managed with ongoing physical therapy to support muscle strengthening and optimize function, as covered by the patient's insurance. No further interventions at this time due to maintained daily function. Consent: Patient was informed and verbally consented to the use of an ambient scribe for clinic note documentation during this visit. X-rays of the left shoulder which were obtained while in the office today and were reviewed by me, Tessa Alexander PA-C, revealed healed midshaft left humerus fracture. Orders: Orders XR shoulder LT min 2V Today M25.519 - Pain in unspecified shoulder Coding Level of Care Code Est Pt Level 3 (64111) Add On Problem Visit Only Diagnoses Left humeral fracture S42.302A Dysfunction of left rotator cuff M67.912
== END 2025-02-25 12:13 | disposition home or self-care (01) ==
LOC: HO.HOS 11:49
PROVIDERS: PCP Physician Assistant; Visit Provider Physician Assistant
DX: S42.302D Unspecified fracture of shaft of humerus, left arm, subsequent encounter for fracture with routine healing (principal); M67.912 Unspecified disorder of synovium and tendon, left shoulder
CPT/HCPCS: 99213; G2211

== ENCOUNTER → 2025-02-25 11:50 | Outpatient (BNV) | payer MEDICARE, SELFPAY | PROVIDERS: Visit Provider Radiology Diagnostic Radiology | DX: M19.012 Primary osteoarthritis, left shoulder (principal); S43.002A Unspecified subluxation of left shoulder joint, initial encounter | CPT/HCPCS: 73030 ==